=== PATIENT | male | born 1985 | race Hispanic/Latino ===

== ENCOUNTER 2017-08-05 15:06 | Emergency (ER) | payer MEDICARE, OTHER ==
[~2017-08-05] VITALS: Ht 190.5 cm; Wt 86.2 kg
[~2017-08-05 15:06] MED LIST: AMLODIPINE BESY10 MG PO; ASPIR 8181 MG PO; ATORVASTATIN CA20 MG PO; FOLIC ACID1 MG PO; GEMFIBROZIL600 MG; HYDRALAZINE HCL25 MG PO; LABETALOL HCL200 MG PO; LEVOTHYROXINE50 MCG PO; MYCOPHENOLATE250 MG PO; PANTOPRAZOLE SO40 MG PO; PREDNISONE20 MG PO; PROMETHAZINE HC25 M1 PO; SUCRALFATE1 GM PO
--- OUTSIDE RECORDS SUMMARY | 2017-08-05 15:13 | XMS REPORT ---
Author Author [facility] Address Unknown Phone Unavailable Care Team Providers Care Cook Helper Pastry Name Role Phone JENNIFER CRUZ Unavailable Unavailable EMMA RAMSEY Unavailable Unavailable ECHO LOLAKAREN Unavailable Unavailable TONY, BENSON Unavailable Unavailable HYSA, VIOLA Unavailable Unavailable EMEKA, CHRISTOPHER Unavailable Unavailable ALAM, MAHBOOB Unavailable Unavailable Problems This patient has no known problems. Allergies, Adverse Reactions, Alerts This patient has no known allergies or adverse reactions. Medications This patient has no known medications. Results Test Description Test Time Test Comments Text Results Atomic Results Result Comments CBC (HEMOGRAM ONLY) 2017-02-28 11:50:00 WHITE BLOOD CELL COUNT (BEAKER) (test whyv=837) 7.6 K/ L 3.5-10.5 RED BLOOD CELL COUNT (BEAKER) (test xfvi=261) 3.13 M/ L 4.63-6.08 HEMOGLOBIN (BEAKER) (test lnpd=466) 8.4 GM/DL 13.7-17.5 HEMATOCRIT (BEAKER) (test vzrg=835) 27.3 % 40.1-51.0 MEAN CORPUSCULAR VOLUME (BEAKER) (test ekyb=195) 87.2 fL 79.0-92.2 MEAN CORPUSCULAR HEMOGLOBIN (BEAKER) (test rcui=787) 26.8 pg 25.7-32.2 MEAN CORPUSCULAR HEMOGLOBIN CONC (BEAKER) (test xgpz=308) 30.8 GM/DL 32.3- 36.5 RED CELL DISTRIBUTION WIDTH (BEAKER) (test tvmi=204) 16.8 % 11.6-14.4 PLATELET COUNT (BEAKER) (test kdqr=549) 209 K/CU MM 150-450 MEAN PLATELET VOLUME (BEAKER) (test fdtp=048) 9.3 fL 9.4-12.4 NUCLEATED RED BLOOD CELLS (BEAKER) (test xcay=019) 0 /100 WBC 0-0 BASIC METABOLIC [id number] 08:10:00* Test Item Value Reference Range Comments SODIUM (BEAKER) (test ypsc=193) 140 meq/L 136-145 POTASSIUM (BEAKER) (test yuws=941) 3.8 meq/L 3.5-5.1 CHLORIDE (BEAKER) (test kpqq=433) 105 meq/L 98-107 CO2 (BEAKER) (test hkix=456) 27 meq/L 22-29 BLOOD UREA NITROGEN (BEAKER) (test njcz=136) 16 mg/dL 7-21 CREATININE (BEAKER) (test zskd=318) 4.07 mg/dL 0.57-1.25 GLUCOSE RANDOM (BEAKER) (test zwfd=218) 75 mg/dL 70-105 CALCIUM (BEAKER) (test alox=598) 8.2 mg/dL 8.4-10.2 EGFR (BEAKER) (test bvda=7855) 17 mL/min/1.73 sq m ESTIMATED GFR IS NOT ACCURATE CREATININE CLEARANCE IN PREDICTING GLOMERULAR FILTRATION RATE. ESTIMATED GFR IS NOT APPLICABLE FOR DIALYSIS PATIENTS. CBC W/PLT COUNT & AUTO [id number] 07:48:00* Test Item Value Reference Range Comments WHITE BLOOD CELL COUNT (BEAKER) (test smgv=806) 5.4 K/ L 3.5-10.5 RED BLOOD CELL COUNT (BEAKER) (test zref=850) 2.67 M/ L 4.63-6.08 HEMOGLOBIN (BEAKER) (test wlhz=100) 8.0 GM/DL 13.7-17.5 HEMATOCRIT (BEAKER) (test isue=153) 24.9 % 40.1-51.0 MEAN CORPUSCULAR VOLUME (BEAKER) (test lzxk=056) 93.3 fL 79.0-92.2 MEAN CORPUSCULAR HEMOGLOBIN (BEAKER) (test sfsw=890) 30.0 pg 25.7-32.2 MEAN CORPUSCULAR HEMOGLOBIN CONC (BEAKER) (test nsfx=180) 32.1 GM/DL 32.3- 36.5 RED CELL DISTRIBUTION WIDTH (BEAKER) (test htoc=903) 15.4 % 11.6-14.4 PLATELET COUNT (BEAKER) (test calp=147) 146 K/CU MM 150-450 MEAN PLATELET VOLUME (BEAKER) (test qcir=189) 9.1 fL 9.4-12.4 NUCLEATED RED BLOOD CELLS (BEAKER) (test gcqr=964) 0 /100 WBC 0-0 NEUTROPHILS RELATIVE PERCENT (BEAKER) (test cclb=300) 60 % LYMPHOCYTES RELATIVE PERCENT (BEAKER) (test oklx=560) 21 % MONOCYTES RELATIVE PERCENT (BEAKER) (test fdkv=160) 13 % EOSINOPHILS RELATIVE PERCENT (BEAKER) (test jlig=822) 5 % BASOPHILS RELATIVE PERCENT (BEAKER) (test abhm=304) 1 % NEUTROPHILS ABSOLUTE COUNT (BEAKER) (test yhmk=749) 3.23 K/ L 1.78-5.38 LYMPHOCYTES ABSOLUTE COUNT (BEAKER) (test vmbj=781) 1.10 K/ L 1.32-3.57 MONOCYTES ABSOLUTE COUNT (BEAKER) (test qbmi=865) 0.68 K/ L 0.30-0.82 EOSINOPHILS ABSOLUTE COUNT (BEAKER) (test zhjd=571) 0.26 K/ L 0.04-0.54 BASOPHILS ABSOLUTE COUNT (BEAKER) (test knzt=268) 0.04 K/ L 0.01-0.08 IMMATURE GRANULOCYTES-RELATIVE PERCENT (BEAKER) (test gype=8733) 1 % 0-1 BASIC METABOLIC [id number] 14:49:00* Test Item Value Reference Range Comments SODIUM (BEAKER) (test mlpu=747) 139 meq/L 136-145 POTASSIUM (BEAKER) (test kdbt=904) 4.1 meq/L 3.5-5.1 CHLORIDE (BEAKER) (test mauu=897) 104 meq/L 98-107 CO2 (BEAKER) (test wmps=845) 24 meq/L 22-29 BLOOD UREA NITROGEN (BEAKER) (test vxdi=567) 22 mg/dL 7-21 CREATININE (BEAKER) (test quxs=558) 4.86 mg/dL 0.57-1.25 GLUCOSE RANDOM (BEAKER) (test ljwv=386) 94 mg/dL 70-105 CALCIUM (BEAKER) (test ixhv=886) 8.0 mg/dL 8.4-10.2 EGFR (BEAKER) (test snln=6480) 14 mL/min/1.73 sq m ESTIMATED GFR IS NOT ACCURATE CREATININE CLEARANCE IN PREDICTING GLOMERULAR FILTRATION RATE. ESTIMATED GFR IS NOT APPLICABLE FOR DIALYSIS PATIENTS. Specimen slightly [id number] 14:40:00* Test Item Value Reference Range Comments PHOSPHORUS (BEAKER) (test dbki=350) 4.8 mg/dL 2.3-4.7 CBC W/PLT COUNT & AUTO [id number] 14:20:00* Test Item Value Reference Range Comments WHITE BLOOD CELL COUNT (BEAKER) (test fwhu=920) 5.8 K/ L 3.5-10.5 RED BLOOD CELL COUNT (BEAKER) (test bukm=245) 2.77 M/ L 4.63-6.08 HEMOGLOBIN (BEAKER) (test wlyf=810) 8.3 GM/DL 13.7-17.5 HEMATOCRIT (BEAKER) (test dize=911) 25.8 % 40.1-51.0 MEAN CORPUSCULAR VOLUME (BEAKER) (test ahuc=445) 93.1 fL 79.0-92.2 MEAN CORPUSCULAR HEMOGLOBIN (BEAKER) (test acme=466) 30.0 pg 25.7-32.2 MEAN CORPUSCULAR HEMOGLOBIN CONC (BEAKER) (test tpdd=784) 32.2 GM/DL 32.3- 36.5 RED CELL DISTRIBUTION WIDTH (BEAKER) (test hntb=703) 15.7 % 11.6-14.4 PLATELET COUNT (BEAKER) (test uqrh=655) 143 K/CU MM 150-450 MEAN PLATELET VOLUME (BEAKER) (test qmdc=826) 9.1 fL 9.4-12.4 NUCLEATED RED BLOOD CELLS (BEAKER) (test jzoo=176) 0 /100 WBC 0-0 NEUTROPHILS RELATIVE PERCENT (BEAKER) (test srma=186) 65 % LYMPHOCYTES RELATIVE PERCENT (BEAKER) (test pctf=424) 18 % MONOCYTES RELATIVE PERCENT (BEAKER) (test zbew=636) 11 % EOSINOPHILS RELATIVE PERCENT (BEAKER) (test hjct=676) 5 % BASOPHILS RELATIVE PERCENT (BEAKER) (test mwgs=853) 1 % NEUTROPHILS ABSOLUTE COUNT (BEAKER) (test pbcf=586) 3.71 K/ L 1.78-5.38 LYMPHOCYTES ABSOLUTE COUNT (BEAKER) (test cida=942) 1.03 K/ L 1.32-3.57 MONOCYTES ABSOLUTE COUNT (BEAKER) (test dnvy=261) 0.65 K/ L 0.30-0.82 EOSINOPHILS ABSOLUTE COUNT (BEAKER) (test wsdi=660) 0.27 K/ L 0.04-0.54 BASOPHILS ABSOLUTE COUNT (BEAKER) (test plbs=616) 0.05 K/ L 0.01-0.08 IMMATURE GRANULOCYTES-RELATIVE PERCENT (BEAKER) (test fziq=4999) 1 % 0-1 AFB CULTURE + [id number] 08:57:00* Test Item Value Reference Range Comments CULTURE (BEAKER) (test mhcv=1084) No acid-fast bacilli isolated in 42 days AFB SMEAR (BEAKER) (test nqus=413) No acid fast bacilli seen BASIC METABOLIC [id number] 11:00:00* Test Item Value Reference Range Comments SODIUM (BEAKER) (test rpag=007) 139 meq/L 136-145 POTASSIUM (BEAKER) (test qvew=039) 4.0 meq/L 3.5-5.1 CHLORIDE (BEAKER) (test eaqv=249) 105 meq/L 98-107 CO2 (BEAKER) (test kvlm=917) 28 meq/L 22-29 BLOOD UREA NITROGEN (BEAKER) (test kqrn=209) 15 mg/dL 7-21 CREATININE (BEAKER) (test dxec=195) 3.72 mg/dL 0.57-1.25 GLUCOSE RANDOM (BEAKER) (test skuj=188) 103 mg/dL 70-105 CALCIUM (BEAKER) (test flud=039) 8.1 mg/dL 8.4-10.2 EGFR (BEAKER) (test tlwp=8309) 19 mL/min/1.73 sq m ESTIMATED GFR IS NOT ACCURATE CREATININE CLEARANCE IN PREDICTING GLOMERULAR FILTRATION RATE. ESTIMATED GFR IS NOT APPLICABLE FOR DIALYSIS PATIENTS. Specimen slightly ictericCBC W/PLT COUNT & AUTO [id number] 10:44:00 * Test Item Value Reference Range Comments WHITE BLOOD CELL COUNT (BEAKER) (test pdoh=333) 4.9 K/ L 3.5-10.5 RED BLOOD CELL COUNT (BEAKER) (test vgct=740) 2.74 M/ L 4.63-6.08 HEMOGLOBIN (BEAKER) (test wlyz=390) 8.1 GM/DL 13.7-17.5 HEMATOCRIT (BEAKER) (test acbf=635) 25.9 % 40.1-51.0 MEAN CORPUSCULAR VOLUME (BEAKER) (test khib=191) 94.5 fL 79.0-92.2 MEAN CORPUSCULAR HEMOGLOBIN (BEAKER) (test tvsz=488) 29.6 pg 25.7-32.2 MEAN CORPUSCULAR HEMOGLOBIN CONC (BEAKER) (test qcho=780) 31.3 GM/DL 32.3- 36.5 RED CELL DISTRIBUTION WIDTH (BEAKER) (test cqcs=695) 15.9 % 11.6-14.4 PLATELET COUNT (BEAKER) (test ziiv=953) 137 K/CU MM 150-450 MEAN PLATELET VOLUME (BEAKER) (test inqn=802) 9.9 fL 9.4-12.4 NUCLEATED RED BLOOD CELLS (BEAKER) (test bqie=974) 0 /100 WBC 0-0 NEUTROPHILS RELATIVE PERCENT (BEAKER) (test stsk=431) 65 % LYMPHOCYTES RELATIVE PERCENT (BEAKER) (test huqe=631) 19 % MONOCYTES RELATIVE PERCENT (BEAKER) (test bxil=718) 10 % EOSINOPHILS RELATIVE PERCENT (BEAKER) (test vacu=050) 5 % BASOPHILS RELATIVE PERCENT (BEAKER) (test emkd=439) 1 % NEUTROPHILS ABSOLUTE COUNT (BEAKER) (test cpol=853) 3.14 K/ L 1.78-5.38 LYMPHOCYTES ABSOLUTE COUNT (BEAKER) (test muxj=927) 0.90 K/ L 1.32-3.57 MONOCYTES ABSOLUTE COUNT (BEAKER) (test mxdd=341) 0.50 K/ L 0.30-0.82 EOSINOPHILS ABSOLUTE COUNT (BEAKER) (test paqa=168) 0.25 K/ L 0.04-0.54 BASOPHILS ABSOLUTE COUNT (BEAKER) (test nrtj=317) 0.04 K/ L 0.01-0.08 IMMATURE GRANULOCYTES-RELATIVE PERCENT (BEAKER) (test rame=4841) 1 % 0-1 COMPREHENSIVE METABOLIC [id number] 05:57:00* Test Item Value Reference Range Comments TOTAL PROTEIN (BEAKER) (test xdby=981) 5.3 gm/dL 6.0-8.3 ALBUMIN (BEAKER) (test dvfp=4262) 2.3 g/dL 3.5-5.0 ALKALINE PHOSPHATASE (BEAKER) (test lxli=568) 187 U/L 40-150 BILIRUBIN TOTAL (BEAKER) (test vnjs=272) 2.6 mg/dL 0.2-1.2 SODIUM (BEAKER) (test xkjy=567) 139 meq/L 136-145 POTASSIUM (BEAKER) (test qhtb=136) 3.9 meq/L 3.5-5.1 CHLORIDE (BEAKER) (test xbxs=866) 104 meq/L 98-107 CO2 (BEAKER) (test snvg=409) 28 meq/L 22-29 BLOOD UREA NITROGEN (BEAKER) (test qsrx=453) 15 mg/dL 7-21 CREATININE (BEAKER) (test bihv=361) 3.50 mg/dL 0.57-1.25 GLUCOSE RANDOM (BEAKER) (test mjbb=877) 72 mg/dL 70-105 CALCIUM (BEAKER) (test luew=276) 8.1 mg/dL 8.4-10.2 AST (SGOT) (BEAKER) (test ihoy=524) 24 U/L 5-34 ALT (SGPT) (BEAKER) (test aovq=098) 16 U/L 6-55 EGFR (BEAKER) (test zivl=5858) 20 mL/min/1.73 sq m ESTIMATED GFR IS NOT ACCURATE CREATININE CLEARANCE IN PREDICTING GLOMERULAR FILTRATION RATE. ESTIMATED GFR IS NOT APPLICABLE FOR DIALYSIS PATIENTS. Specimen slightly [id number] 05:56:00* Test Item Value Reference Range Comments PHOSPHORUS (BEAKER) (test mieg=687) 3.5 mg/dL 2.3-4.7 [id number] 05:56:00* Test Item Value Reference Range Comments MAGNESIUM (BEAKER) (test uxpk=602) 1.6 mg/dL 1.6-2.6 CBC W/PLT COUNT & AUTO [id number] 14:48:00* Test Item Value Reference Range Comments WHITE BLOOD CELL COUNT (BEAKER) (test tmnr=318) 5.2 K/ L 3.5-10.5 RED BLOOD CELL COUNT (BEAKER) (test myzb=308) 2.96 M/ L 4.63-6.08 HEMOGLOBIN (BEAKER) (test xmnp=721) 8.8 GM/DL 13.7-17.5 HEMATOCRIT (BEAKER) (test hnft=044) 27.3 % 40.1-51.0 MEAN CORPUSCULAR VOLUME (BEAKER) (test nvwz=018) 92.2 fL 79.0-92.2 MEAN CORPUSCULAR HEMOGLOBIN (BEAKER) (test vgyg=899) 29.7 pg 25.7-32.2 MEAN CORPUSCULAR HEMOGLOBIN CONC (BEAKER) (test hotn=206) 32.2 GM/DL 32.3- 36.5 RED CELL DISTRIBUTION WIDTH (BEAKER) (test sidd=563) 15.8 % 11.6-14.4 PLATELET COUNT (BEAKER) (test oxou=884) 130 K/CU MM 150-450 MEAN PLATELET VOLUME (BEAKER) (test enee=168) 9.0 fL 9.4-12.4 NUCLEATED RED BLOOD CELLS (BEAKER) (test irzv=165) 0 /100 WBC 0-0 NEUTROPHILS RELATIVE PERCENT (BEAKER) (test dlxm=873) 65 % LYMPHOCYTES RELATIVE PERCENT (BEAKER) (test lulp=964) 19 % MONOCYTES RELATIVE PERCENT (BEAKER) (test hjnt=902) 9 % EOSINOPHILS RELATIVE PERCENT (BEAKER) (test wwzz=216) 5 % BASOPHILS RELATIVE PERCENT (BEAKER) (test yvhp=292) 1 % NEUTROPHILS ABSOLUTE COUNT (BEAKER) (test ocpa=065) 3.39 K/ L 1.78-5.38 LYMPHOCYTES ABSOLUTE COUNT (BEAKER) (test gazs=893) 0.98 K/ L 1.32-3.57 MONOCYTES ABSOLUTE COUNT (BEAKER) (test fdid=323) 0.46 K/ L 0.30-0.82 EOSINOPHILS ABSOLUTE COUNT (BEAKER) (test jofx=016) 0.28 K/ L 0.04-0.54 BASOPHILS ABSOLUTE COUNT (BEAKER) (test rucg=868) 0.03 K/ L 0.01-0.08 IMMATURE GRANULOCYTES-RELATIVE PERCENT (BEAKER) (test ekuq=0406) 1 % 0-1 COMPREHENSIVE METABOLIC [id number] 06:15:00* Test Item Value Reference Range Comments TOTAL PROTEIN (BEAKER) (test dwri=233) 5.4 gm/dL 6.0-8.3 ALBUMIN (BEAKER) (test fzuk=3665) 2.3 g/dL 3.5-5.0 ALKALINE PHOSPHATASE (BEAKER) (test svvc=907) 183 U/L 40-150 BILIRUBIN TOTAL (BEAKER) (test qzdh=745) 2.8 mg/dL 0.2-1.2 SODIUM (BEAKER) (test pgae=298) 134 meq/L 136-145 POTASSIUM (BEAKER) (test kvma=189) 4.5 meq/L 3.5-5.1 CHLORIDE (BEAKER) (test rgcb=764) 102 meq/L 98-107 CO2 (BEAKER) (test sqei=109) 24 meq/L 22-29 BLOOD UREA NITROGEN (BEAKER) (test hdac=675) 29 mg/dL 7-21 CREATININE (BEAKER) (test chjv=248) 5.43 mg/dL 0.57-1.25 GLUCOSE RANDOM (BEAKER) (test cwsj=999) 79 mg/dL 70-105 CALCIUM (BEAKER) (test wvqt=959) 7.9 mg/dL 8.4-10.2 AST (SGOT) (BEAKER) (test btax=094) 21 U/L 5-34 ALT (SGPT) (BEAKER) (test kgvz=769) 11 U/L 6-55 EGFR (BEAKER) (test jsvo=1442) 12 mL/min/1.73 sq m ESTIMATED GFR IS NOT ACCURATE CREATININE CLEARANCE IN PREDICTING GLOMERULAR FILTRATION RATE. ESTIMATED GFR IS NOT APPLICABLE FOR DIALYSIS PATIENTS. Specimen slightly [id number] 06:13:00* Test Item Value Reference Range Comments PHOSPHORUS (BEAKER) (test fhyq=997) 4.5 mg/dL 2.3-4.7 [id number] 06:13:00* Test Item Value Reference Range Comments MAGNESIUM (BEAKER) (test rcmf=401) 1.8 mg/dL 1.6-2.6 COMPREHENSIVE METABOLIC [id number] 17:23:00* Test Item Value Reference Range Comments TOTAL PROTEIN (BEAKER) (test algm=135) 5.3 gm/dL 6.0-8.3 ALBUMIN (BEAKER) (test fmfy=0510) 2.2 g/dL 3.5-5.0 ALKALINE PHOSPHATASE (BEAKER) (test daot=707) 214 U/L 40-150 BILIRUBIN TOTAL (BEAKER) (test jrjz=230) 2.4 mg/dL 0.2-1.2 SODIUM (BEAKER) (test ecpe=635) 137 meq/L 136-145 POTASSIUM (BEAKER) (test oagp=718) 4.4 meq/L 3.5-5.1 CHLORIDE (BEAKER) (test nchq=847) 103 meq/L 98-107 CO2 (BEAKER) (test lryy=648) 24 meq/L 22-29 BLOOD UREA NITROGEN (BEAKER) (test ybef=711) 24 mg/dL 7-21 CREATININE (BEAKER) (test yvnt=534) 4.69 mg/dL 0.57-1.25 GLUCOSE RANDOM (BEAKER) (test wpnt=944) 108 mg/dL 70-105 CALCIUM (BEAKER) (test rhkk=156) 7.9 mg/dL 8.4-10.2 AST (SGOT) (BEAKER) (test efbi=071) 24 U/L 5-34 ALT (SGPT) (BEAKER) (test njnb=526) 17 U/L 6-55 EGFR (BEAKER) (test fwqo=3052) 14 mL/min/1.73 sq m ESTIMATED GFR IS NOT ACCURATE CREATININE CLEARANCE IN PREDICTING GLOMERULAR FILTRATION RATE. ESTIMATED GFR IS NOT APPLICABLE FOR DIALYSIS PATIENTS. BASIC METABOLIC [id number] 05:36:00* Test Item Value Reference Range Comments SODIUM (BEAKER) (test gycr=835) 135 meq/L 136-145 POTASSIUM (BEAKER) (test wdwv=756) 4.3 meq/L 3.5-5.1 CHLORIDE (BEAKER) (test jemc=123) 101 meq/L 98-107 CO2 (BEAKER) (test bigv=280) 26 meq/L 22-29 BLOOD UREA NITROGEN (BEAKER) (test eele=953) 15 mg/dL 7-21 CREATININE (BEAKER) (test dmzl=652) 3.33 mg/dL 0.57-1.25 GLUCOSE RANDOM (BEAKER) (test dhvw=657) 80 mg/dL 70-105 CALCIUM (BEAKER) (test gqxe=404) 7.7 mg/dL 8.4-10.2 EGFR (BEAKER) (test worb=2048) 21 mL/min/1.73 sq m ESTIMATED GFR IS NOT ACCURATE CREATININE CLEARANCE IN PREDICTING GLOMERULAR FILTRATION RATE. ESTIMATED GFR IS NOT APPLICABLE FOR DIALYSIS PATIENTS. Specimen slightly [id number] 05:34:00* Test Item Value Reference Range Comments PHOSPHORUS (BEAKER) (test vwqy=864) 3.1 mg/dL 2.3-4.7 [id number] 05:34:00* Test Item Value Reference Range Comments MAGNESIUM (BEAKER) (test gbgv=338) 1.6 mg/dL 1.6-2.6 HEPATIC FUNCTION [id number] 05:34:00* Test Item Value Reference Range Comments TOTAL PROTEIN (BEAKER) (test kgsb=010) 5.3 gm/dL 6.0-8.3 ALBUMIN (BEAKER) (test litu=9202) 2.3 g/dL 3.5-5.0 BILIRUBIN TOTAL (BEAKER) (test cguy=120) 3.0 mg/dL 0.2-1.2 BILIRUBIN DIRECT (BEAKER) (test ytmt=992) 2.3 mg/dL 0.1-0.5 ALKALINE PHOSPHATASE (BEAKER) (test gfgo=992) 203 U/L 40-150 AST (SGOT) (BEAKER) (test bpvl=895) 24 U/L 5-34 ALT (SGPT) (BEAKER) (test irtg=727) 15 U/L 6-55 Specimen slightly [id number] 05:34:00* Test Item Value Reference Range Comments AMMONIA (BEAKER) (test uiei=394) 24 mol/L 18-72 Please draw w/ HDCBC W/PLT COUNT & AUTO [id number] 05:02:00* Test Item Value Reference Range Comments WHITE BLOOD CELL COUNT (BEAKER) (test gqzr=247) 7.2 K/ L 3.5-10.5 RED BLOOD CELL COUNT (BEAKER) (test ytqd=407) 2.73 M/ L 4.63-6.08 HEMOGLOBIN (BEAKER) (test pvwn=925) 8.2 GM/DL 13.7-17.5 HEMATOCRIT (BEAKER) (test rxmb=290) 25.9 % 40.1-51.0 MEAN CORPUSCULAR VOLUME (BEAKER) (test olnk=921) 94.9 fL 79.0-92.2 MEAN CORPUSCULAR HEMOGLOBIN (BEAKER) (test lukb=410) 30.0 pg 25.7-32.2 MEAN CORPUSCULAR HEMOGLOBIN CONC (BEAKER) (test smzq=421) 31.7 GM/DL 32.3- 36.5 RED CELL DISTRIBUTION WIDTH (BEAKER) (test gvzn=688) 16.6 % 11.6-14.4 PLATELET COUNT (BEAKER) (test ysie=359) 121 K/CU MM 150-450 MEAN PLATELET VOLUME (BEAKER) (test ytdj=575) 9.8 fL 9.4-12.4 NUCLEATED RED BLOOD CELLS (BEAKER) (test pnwg=433) 0 /100 WBC 0-0 NEUTROPHILS RELATIVE PERCENT (BEAKER) (test ewsq=190) 63 % LYMPHOCYTES RELATIVE PERCENT (BEAKER) (test jhjj=657) 19 % MONOCYTES RELATIVE PERCENT (BEAKER) (test witv=108) 11 % EOSINOPHILS RELATIVE PERCENT (BEAKER) (test imnt=576) 5 % BASOPHILS RELATIVE PERCENT (BEAKER) (test lazf=006) 1 % NEUTROPHILS ABSOLUTE COUNT (BEAKER) (test ucvg=283) 4.53 K/ L 1.78-5.38 LYMPHOCYTES ABSOLUTE COUNT (BEAKER) (test yqlm=316) 1.37 K/ L 1.32-3.57 MONOCYTES ABSOLUTE COUNT (BEAKER) (test vdvx=851) 0.76 K/ L 0.30-0.82 EOSINOPHILS ABSOLUTE COUNT (BEAKER) (test ssnm=035) 0.39 K/ L 0.04-0.54 BASOPHILS ABSOLUTE COUNT (BEAKER) (test yoba=365) 0.06 K/ L 0.01-0.08 IMMATURE GRANULOCYTES-RELATIVE PERCENT (BEAKER) (test mgvw=4058) 1 % 0-1 VANCOMYCIN LEVEL, [id number] 04:59:00* Test Item Value Reference Range Comments VANCOMYCIN TROUGH (BEAKER) (test cjyw=602) 27.0 ug/mL 10.0-20.0 BASIC METABOLIC [id number] 06:49:00* Test Item Value Reference Range Comments SODIUM (BEAKER) (test rtuk=953) 137 meq/L 136-145 POTASSIUM (BEAKER) (test ywer=131) 4.2 meq/L 3.5-5.1 CHLORIDE (BEAKER) (test vkib=062) 102 meq/L 98-107 CO2 (BEAKER) (test oxjv=536) 28 meq/L 22-29 BLOOD UREA NITROGEN (BEAKER) (test fygq=778) 12 mg/dL 7-21 CREATININE (BEAKER) (test mele=138) 3.12 mg/dL 0.57-1.25 GLUCOSE RANDOM (BEAKER) (test zqsd=365) 75 mg/dL 70-105 CALCIUM (BEAKER) (test zlah=038) 8.0 mg/dL 8.4-10.2 EGFR (BEAKER) (test djri=6665) 23 mL/min/1.73 sq m ESTIMATED GFR IS NOT ACCURATE CREATININE CLEARANCE IN PREDICTING GLOMERULAR FILTRATION RATE. ESTIMATED GFR IS NOT APPLICABLE FOR DIALYSIS PATIENTS. Specimen slightly [id number] 06:46:00* Test Item Value Reference Range Comments PHOSPHORUS (BEAKER) (test ypki=228) 3.1 mg/dL 2.3-4.7 [id number] 06:46:00* Test Item Value Reference Range Comments MAGNESIUM (BEAKER) (test rlkn=829) 1.6 mg/dL 1.6-2.6 HEPATIC FUNCTION [id number] 06:46:00* Test Item Value Reference Range Comments TOTAL PROTEIN (BEAKER) (test pnas=114) 5.4 gm/dL 6.0-8.3 ALBUMIN (BEAKER) (test xlbg=5753) 2.3 g/dL 3.5-5.0 BILIRUBIN TOTAL (BEAKER) (test fvmi=951) 3.2 mg/dL 0.2-1.2 BILIRUBIN DIRECT (BEAKER) (test plke=156) 2.4 mg/dL 0.1-0.5 ALKALINE PHOSPHATASE (BEAKER) (test gkup=901) 195 U/L 40-150 AST (SGOT) (BEAKER) (test swji=947) 30 U/L 5-34 ALT (SGPT) (BEAKER) (test snsc=188) 21 U/L 6-55 Specimen slightly ictericCBC W/PLT COUNT & AUTO [id number] 06:20:00 * Test Item Value Reference Range Comments WHITE BLOOD CELL COUNT (BEAKER) (test aggn=110) 7.5 K/ L 3.5-10.5 RED BLOOD CELL COUNT (BEAKER) (test laca=769) 2.73 M/ L 4.63-6.08 HEMOGLOBIN (BEAKER) (test eecz=681) 8.4 GM/DL 13.7-17.5 HEMATOCRIT (BEAKER) (test uahj=927) 26.3 % 40.1-51.0 MEAN CORPUSCULAR VOLUME (BEAKER) (test ysxj=050) 96.3 fL 79.0-92.2 MEAN CORPUSCULAR HEMOGLOBIN (BEAKER) (test yayf=062) 30.8 pg 25.7-32.2 MEAN CORPUSCULAR HEMOGLOBIN CONC (BEAKER) (test esnt=840) 31.9 GM/DL 32.3- 36.5 RED CELL DISTRIBUTION WIDTH (BEAKER) (test wtmk=585) 17.2 % 11.6-14.4 PLATELET COUNT (BEAKER) (test lfqj=773) 106 K/CU MM 150-450 MEAN PLATELET VOLUME (BEAKER) (test cfto=504) 9.4 fL 9.4-12.4 NUCLEATED RED BLOOD CELLS (BEAKER) (test wkzt=250) 0 /100 WBC 0-0 NEUTROPHILS RELATIVE PERCENT (BEAKER) (test gubz=844) 64 % LYMPHOCYTES RELATIVE PERCENT (BEAKER) (test sfgu=989) 19 % MONOCYTES RELATIVE PERCENT (BEAKER) (test beyg=647) 11 % EOSINOPHILS RELATIVE PERCENT (BEAKER) (test pspq=787) 4 % BASOPHILS RELATIVE PERCENT (BEAKER) (test vtzp=473) 1 % NEUTROPHILS ABSOLUTE COUNT (BEAKER) (test lnvr=613) 4.78 K/ L 1.78-5.38 LYMPHOCYTES ABSOLUTE COUNT (BEAKER) (test pshl=901) 1.43 K/ L 1.32-3.57 MONOCYTES ABSOLUTE COUNT (BEAKER) (test eewg=676) 0.84 K/ L 0.30-0.82 EOSINOPHILS ABSOLUTE COUNT (BEAKER) (test aenk=207) 0.33 K/ L 0.04-0.54 BASOPHILS ABSOLUTE COUNT (BEAKER) (test brvq=005) 0.05 K/ L 0.01-0.08 IMMATURE GRANULOCYTES-RELATIVE PERCENT (BEAKER) (test bmyy=5774) 1 % 0-1 BASIC METABOLIC [id number] 15:10:00* Test Item Value Reference Range Comments SODIUM (BEAKER) (test oeld=717) 137 meq/L 136-145 POTASSIUM (BEAKER) (test zspy=807) 4.0 meq/L 3.5-5.1 CHLORIDE (BEAKER) (test kuxf=154) 101 meq/L 98-107 CO2 (BEAKER) (test qjrw=676) 27 meq/L 22-29 BLOOD UREA NITROGEN (BEAKER) (test rtkm=213) 12 mg/dL 7-21 CREATININE (BEAKER) (test hjqx=400) 3.11 mg/dL 0.57-1.25 GLUCOSE RANDOM (BEAKER) (test sgcc=668) 92 mg/dL 70-105 CALCIUM (BEAKER) (test qkxr=248) 7.9 mg/dL 8.4-10.2 EGFR (BEAKER) (test vbtl=5922) 23 mL/min/1.73 sq m ESTIMATED GFR IS NOT ACCURATE CREATININE CLEARANCE IN PREDICTING GLOMERULAR FILTRATION RATE. ESTIMATED GFR IS NOT APPLICABLE FOR DIALYSIS PATIENTS. Specimen slightly [id number] 15:06:00* Test Item Value Reference Range Comments PHOSPHORUS (BEAKER) (test lpwi=746) 2.2 mg/dL 2.3-4.7 [id number] 15:06:00* Test Item Value Reference Range Comments MAGNESIUM (BEAKER) (test ttfo=442) 1.6 mg/dL 1.6-2.6 HEPATIC FUNCTION [id number] 15:06:00* Test Item Value Reference Range Comments TOTAL PROTEIN (BEAKER) (test ezem=766) 5.7 gm/dL 6.0-8.3 ALBUMIN (BEAKER) (test akgr=0792) 2.5 g/dL 3.5-5.0 BILIRUBIN TOTAL (BEAKER) (test wqtv=492) 3.5 mg/dL 0.2-1.2 BILIRUBIN DIRECT (BEAKER) (test iizh=985) 2.7 mg/dL 0.1-0.5 ALKALINE PHOSPHATASE (BEAKER) (test vtsi=804) 211 U/L 40-150 AST (SGOT) (BEAKER) (test dadc=014) 30 U/L 5-34 ALT (SGPT) (BEAKER) (test hopo=722) 21 U/L 6-55 Specimen slightly ictericCBC W/PLT COUNT & AUTO [id number] 13:24:00 * Test Item Value Reference Range Comments WHITE BLOOD CELL COUNT (BEAKER) (test oivr=053) 8.7 K/ L 3.5-10.5 RED BLOOD CELL COUNT (BEAKER) (test xuaw=591) 2.86 M/ L 4.63-6.08 HEMOGLOBIN (BEAKER) (test prxf=029) 8.7 GM/DL 13.7-17.5 HEMATOCRIT (BEAKER) (test dcha=559) 27.5 % 40.1-51.0 MEAN CORPUSCULAR VOLUME (BEAKER) (test fnzt=240) 96.2 fL 79.0-92.2 MEAN CORPUSCULAR HEMOGLOBIN (BEAKER) (test fbwi=710) 30.4 pg 25.7-32.2 MEAN CORPUSCULAR HEMOGLOBIN CONC (BEAKER) (test buyb=550) 31.6 GM/DL 32.3- 36.5 RED CELL DISTRIBUTION WIDTH (BEAKER) (test bigp=113) 17.6 % 11.6-14.4 PLATELET COUNT (BEAKER) (test kqnm=485) 132 K/CU MM 150-450 MEAN PLATELET VOLUME (BEAKER) (test qqcm=809) 9.9 fL 9.4-12.4 NUCLEATED RED BLOOD CELLS (BEAKER) (test qtvn=177) 0 /100 WBC 0-0 NEUTROPHILS RELATIVE PERCENT (BEAKER) (test rhpb=498) 69 % LYMPHOCYTES RELATIVE PERCENT (BEAKER) (test odnf=053) 17 % MONOCYTES RELATIVE PERCENT (BEAKER) (test spoa=459) 10 % EOSINOPHILS RELATIVE PERCENT (BEAKER) (test zedm=171) 3 % BASOPHILS RELATIVE PERCENT (BEAKER) (test ueub=835) 1 % NEUTROPHILS ABSOLUTE COUNT (BEAKER) (test mqks=190) 6.02 K/ L 1.78-5.38 LYMPHOCYTES ABSOLUTE COUNT (BEAKER) (test ttty=105) 1.44 K/ L 1.32-3.57 MONOCYTES ABSOLUTE COUNT (BEAKER) (test rzlx=557) 0.90 K/ L 0.30-0.82 EOSINOPHILS ABSOLUTE COUNT (BEAKER) (test kkvn=697) 0.27 K/ L 0.04-0.54 BASOPHILS ABSOLUTE COUNT (BEAKER) (test ifzk=146) 0.05 K/ L 0.01-0.08 IMMATURE GRANULOCYTES-RELATIVE PERCENT (BEAKER) (test xltk=3668) 1 % 0-1 FUNGUS CULTURE + [id number] 14:05:00* Test Item Value Reference Range Comments CULTURE (BEAKER) (test amre=0962) No fungus isolated in 28 days FUNGUS SMEAR (BEAKER) (test oisq=7293) No fungi seen VANCOMYCIN LEVEL, [id number] 18:54:00* Test Item Value Reference Range Comments VANCOMYCIN TROUGH (BEAKER) (test fneh=535) 13.7 ug/mL 10.0-20.0 [id number] 06:32:00* Test Item Value Reference Range Comments PHOSPHORUS (BEAKER) (test iprh=912) 3.9 mg/dL 2.3-4.7 BASIC METABOLIC [id number] 06:32:00* Test Item Value Reference Range Comments SODIUM (BEAKER) (test oqhq=564) 134 meq/L 136-145 POTASSIUM (BEAKER) (test ncvi=554) 4.4 meq/L 3.5-5.1 CHLORIDE (BEAKER) (test nlka=584) 99 meq/L 98-107 CO2 (BEAKER) (test ycwo=769) 24 meq/L 22-29 BLOOD UREA NITROGEN (BEAKER) (test zwwp=778) 19 mg/dL 7-21 CREATININE (BEAKER) (test lpsm=449) 4.25 mg/dL 0.57-1.25 GLUCOSE RANDOM (BEAKER) (test qnrg=110) 69 mg/dL 70-105 CALCIUM (BEAKER) (test ofdg=199) 7.6 mg/dL 8.4-10.2 EGFR (BEAKER) (test qzds=7355) 16 mL/min/1.73 sq m ESTIMATED GFR IS NOT ACCURATE CREATININE CLEARANCE IN PREDICTING GLOMERULAR FILTRATION RATE. ESTIMATED GFR IS NOT APPLICABLE FOR DIALYSIS PATIENTS. Specimen slightly [id number] 06:28:00* Test Item Value Reference Range Comments MAGNESIUM (BEAKER) (test hyyd=085) 1.5 mg/dL 1.6-2.6 HEPATIC FUNCTION [id number] 06:28:00* Test Item Value Reference Range Comments TOTAL PROTEIN (BEAKER) (test ngdf=714) 5.3 gm/dL 6.0-8.3 ALBUMIN (BEAKER) (test alzc=8845) 2.3 g/dL 3.5-5.0 BILIRUBIN TOTAL (BEAKER) (test cynt=626) 3.8 mg/dL 0.2-1.2 BILIRUBIN DIRECT (BEAKER) (test gszu=789) 3.0 mg/dL 0.1-0.5 ALKALINE PHOSPHATASE (BEAKER) (test vzda=838) 210 U/L 40-150 AST (SGOT) (BEAKER) (test vtew=293) 36 U/L 5-34 ALT (SGPT) (BEAKER) (test ctth=556) 30 U/L 6-55 Specimen slightly ictericCBC W/PLT COUNT & AUTO [id number] 05:55:00 * Test Item Value Reference Range Comments WHITE BLOOD CELL COUNT (BEAKER) (test exeh=723) 8.9 K/ L 3.5-10.5 RED BLOOD CELL COUNT (BEAKER) (test kinp=805) 2.77 M/ L 4.63-6.08 HEMOGLOBIN (BEAKER) (test mjkk=537) 8.2 GM/DL 13.7-17.5 HEMATOCRIT (BEAKER) (test twqb=057) 26.3 % 40.1-51.0 MEAN CORPUSCULAR VOLUME (BEAKER) (test naef=719) 94.9 fL 79.0-92.2 MEAN CORPUSCULAR HEMOGLOBIN (BEAKER) (test sdkx=906) 29.6 pg 25.7-32.2 MEAN CORPUSCULAR HEMOGLOBIN CONC (BEAKER) (test kxno=869) 31.2 GM/DL 32.3- 36.5 RED CELL DISTRIBUTION WIDTH (BEAKER) (test lovq=268) 18.0 % 11.6-14.4 PLATELET COUNT (BEAKER) (test fitt=170) 135 K/CU MM 150-450 MEAN PLATELET VOLUME (BEAKER) (test kqrz=687) 9.7 fL 9.4-12.4 NUCLEATED RED BLOOD CELLS (BEAKER) (test rpdn=773) 0 /100 WBC 0-0 NEUTROPHILS RELATIVE PERCENT (BEAKER) (test zpzz=771) 66 % LYMPHOCYTES RELATIVE PERCENT (BEAKER) (test ihly=633) 18 % MONOCYTES RELATIVE PERCENT (BEAKER) (test nvxv=054) 11 % EOSINOPHILS RELATIVE PERCENT (BEAKER) (test ncmb=285) 4 % BASOPHILS RELATIVE PERCENT (BEAKER) (test qnbh=571) 1 % NEUTROPHILS ABSOLUTE COUNT (BEAKER) (test krop=192) 5.87 K/ L 1.78-5.38 LYMPHOCYTES ABSOLUTE COUNT (BEAKER) (test ktks=657) 1.59 K/ L 1.32-3.57 MONOCYTES ABSOLUTE COUNT (BEAKER) (test zrvj=713) 1.01 K/ L 0.30-0.82 EOSINOPHILS ABSOLUTE COUNT (BEAKER) (test kbyl=127) 0.34 K/ L 0.04-0.54 BASOPHILS ABSOLUTE COUNT (BEAKER) (test bhzs=193) 0.07 K/ L 0.01-0.08 IMMATURE GRANULOCYTES-RELATIVE PERCENT (BEAKER) (test snkr=0654) 0 % 0-1 [id number] 05:07:00* Test Item Value Reference Range Comments AMMONIA (BEAKER) (test asku=212) 15 mol/L 18-72 Please draw / [facility] METABOLIC [id number] 04:33:00* Test Item Value Reference Range Comments SODIUM (BEAKER) (test kkxr=463) 133 meq/L 136-145 POTASSIUM (BEAKER) (test fzwk=536) 4.3 meq/L 3.5-5.1 CHLORIDE (BEAKER) (test dfkw=421) 100 meq/L 98-107 CO2 (BEAKER) (test iyiq=928) 24 meq/L 22-29 BLOOD UREA NITROGEN (BEAKER) (test pjkt=772) 23 mg/dL 7-21 CREATININE (BEAKER) (test mjpi=170) 4.57 mg/dL 0.57-1.25 GLUCOSE RANDOM (BEAKER) (test rfam=422) 80 mg/dL 70-105 CALCIUM (BEAKER) (test djvt=413) 7.6 mg/dL 8.4-10.2 EGFR (BEAKER) (test ksmr=6481) 15 mL/min/1.73 sq m ESTIMATED GFR IS NOT ACCURATE CREATININE CLEARANCE IN PREDICTING GLOMERULAR FILTRATION RATE. ESTIMATED GFR IS NOT APPLICABLE FOR DIALYSIS PATIENTS. Specimen slightly [id number] 04:32:00* Test Item Value Reference Range Comments PHOSPHORUS (BEAKER) (test kchb=382) 4.5 mg/dL 2.3-4.7 [id number] 04:32:00* Test Item Value Reference Range Comments MAGNESIUM (BEAKER) (test jdao=954) 1.5 mg/dL 1.6-2.6 HEPATIC FUNCTION [id number] 04:32:00* Test Item Value Reference Range Comments TOTAL PROTEIN (BEAKER) (test viyk=102) 5.4 gm/dL 6.0-8.3 ALBUMIN (BEAKER) (test tqbv=7404) 2.3 g/dL 3.5-5.0 BILIRUBIN TOTAL (BEAKER) (test zkwb=374) 4.3 mg/dL 0.2-1.2 BILIRUBIN DIRECT (BEAKER) (test rdmq=735) 3.3 mg/dL 0.1-0.5 ALKALINE PHOSPHATASE (BEAKER) (test eekf=638) 235 U/L 40-150 AST (SGOT) (BEAKER) (test oxzk=557) 45 U/L 5-34 ALT (SGPT) (BEAKER) (test prao=714) 34 U/L 6-55 Specimen slightly ictericCBC W/PLT COUNT & AUTO [id number] 04:15:00 * Test Item Value Reference Range Comments WHITE BLOOD CELL COUNT (BEAKER) (test pllz=371) 10.3 K/ L 3.5-10.5 RED BLOOD CELL COUNT (BEAKER) (test nufl=796) 2.74 M/ L 4.63-6.08 HEMOGLOBIN (BEAKER) (test avwf=380) 8.1 GM/DL 13.7-17.5 HEMATOCRIT (BEAKER) (test blid=833) 26.3 % 40.1-51.0 MEAN CORPUSCULAR VOLUME (BEAKER) (test ljgv=157) 96.0 fL 79.0-92.2 MEAN CORPUSCULAR HEMOGLOBIN (BEAKER) (test vxwh=829) 29.6 pg 25.7-32.2 MEAN CORPUSCULAR HEMOGLOBIN CONC (BEAKER) (test mbtx=365) 30.8 GM/DL 32.3- 36.5 RED CELL DISTRIBUTION WIDTH (BEAKER) (test morm=381) 18.3 % 11.6-14.4 PLATELET COUNT (BEAKER) (test zklb=155) 125 K/CU MM 150-450 MEAN PLATELET VOLUME (BEAKER) (test ycda=600) 9.3 fL 9.4-12.4 NUCLEATED RED BLOOD CELLS (BEAKER) (test wckp=611) 0 /100 WBC 0-0 NEUTROPHILS RELATIVE PERCENT (BEAKER) (test yxxm=513) 66 % LYMPHOCYTES RELATIVE PERCENT (BEAKER) (test hvxe=203) 17 % MONOCYTES RELATIVE PERCENT (BEAKER) (test qqim=266) 13 % EOSINOPHILS RELATIVE PERCENT (BEAKER) (test bsvm=223) 3 % BASOPHILS RELATIVE PERCENT (BEAKER) (test rztq=660) 1 % NEUTROPHILS ABSOLUTE COUNT (BEAKER) (test cdcw=456) 6.87 K/ L 1.78-5.38 LYMPHOCYTES ABSOLUTE COUNT (BEAKER) (test gkpt=531) 1.75 K/ L 1.32-3.57 MONOCYTES ABSOLUTE COUNT (BEAKER) (test tbuk=643) 1.29 K/ L 0.30-0.82 EOSINOPHILS ABSOLUTE COUNT (BEAKER) (test yyzk=962) 0.31 K/ L 0.04-0.54 BASOPHILS ABSOLUTE COUNT (BEAKER) (test xvvk=717) 0.06 K/ L 0.01-0.08 IMMATURE GRANULOCYTES-RELATIVE PERCENT (BEAKER) (test byip=3704) 1 % 0-1 BASIC METABOLIC [id number] 07:34:00* Test Item Value Reference Range Comments SODIUM (BEAKER) (test xglz=409) 135 meq/L 136-145 POTASSIUM (BEAKER) (test kvjd=904) 4.0 meq/L 3.5-5.1 CHLORIDE (BEAKER) (test snbe=655) 99 meq/L 98-107 CO2 (BEAKER) (test lnrw=751) 27 meq/L 22-29 BLOOD UREA NITROGEN (BEAKER) (test iaag=850) 15 mg/dL 7-21 CREATININE (BEAKER) (test pmag=433) 3.51 mg/dL 0.57-1.25 GLUCOSE RANDOM (BEAKER) (test fbfs=748) 69 mg/dL 70-105 CALCIUM (BEAKER) (test iwwk=069) 7.6 mg/dL 8.4-10.2 EGFR (BEAKER) (test uhqs=4937) 20 mL/min/1.73 sq m ESTIMATED GFR IS NOT ACCURATE CREATININE CLEARANCE IN PREDICTING GLOMERULAR FILTRATION RATE. ESTIMATED GFR IS NOT APPLICABLE FOR DIALYSIS PATIENTS. Specimen slightly [id number] 07:15:00* Test Item Value Reference Range Comments PHOSPHORUS (BEAKER) (test olag=283) 3.8 mg/dL 2.3-4.7 [id number] 07:15:00* Test Item Value Reference Range Comments MAGNESIUM (BEAKER) (test glzc=280) 1.5 mg/dL 1.6-2.6 HEPATIC FUNCTION [id number] 07:15:00* Test Item Value Reference Range Comments TOTAL PROTEIN (BEAKER) (test xnqw=807) 5.1 gm/dL 6.0-8.3 ALBUMIN (BEAKER) (test daqm=0266) 2.1 g/dL 3.5-5.0 BILIRUBIN TOTAL (BEAKER) (test vdit=799) 4.2 mg/dL 0.2-1.2 BILIRUBIN DIRECT (BEAKER) (test xwsi=341) 3.3 mg/dL 0.1-0.5 ALKALINE PHOSPHATASE (BEAKER) (test ygqo=061) 213 U/L 40-150 AST (SGOT) (BEAKER) (test kbjr=362) 59 U/L 5-34 ALT (SGPT) (BEAKER) (test pcxi=832) 38 U/L 6-55 Specimen slightly ictericCBC W/PLT COUNT & AUTO [id number] 06:31:00 * Test Item Value Reference Range Comments WHITE BLOOD CELL COUNT (BEAKER) (test tmqh=582) 8.7 K/ L 3.5-10.5 RED BLOOD CELL COUNT (BEAKER) (test jqkw=639) 2.90 M/ L 4.63-6.08 HEMOGLOBIN (BEAKER) (test iida=099) 8.5 GM/DL 13.7-17.5 HEMATOCRIT (BEAKER) (test fuys=029) 27.6 % 40.1-51.0 MEAN CORPUSCULAR VOLUME (BEAKER) (test oqcc=579) 95.2 fL 79.0-92.2 MEAN CORPUSCULAR HEMOGLOBIN (BEAKER) (test ncej=556) 29.3 pg 25.7-32.2 MEAN CORPUSCULAR HEMOGLOBIN CONC (BEAKER) (test sjwj=843) 30.8 GM/DL 32.3- 36.5 RED CELL DISTRIBUTION WIDTH (BEAKER) (test gefy=712) 18.6 % 11.6-14.4 PLATELET COUNT (BEAKER) (test irps=504) 122 K/CU MM 150-450 MEAN PLATELET VOLUME (BEAKER) (test xvyr=304) 10.6 fL 9.4-12.4 NUCLEATED RED BLOOD CELLS (BEAKER) (test rhtg=714) 0 /100 WBC 0-0 NEUTROPHILS RELATIVE PERCENT (BEAKER) (test pjkb=659) 66 % LYMPHOCYTES RELATIVE PERCENT (BEAKER) (test sifn=227) 17 % MONOCYTES RELATIVE PERCENT (BEAKER) (test xyfm=790) 13 % EOSINOPHILS RELATIVE PERCENT (BEAKER) (test acae=168) 3 % BASOPHILS RELATIVE PERCENT (BEAKER) (test txkz=100) 1 % NEUTROPHILS ABSOLUTE COUNT (BEAKER) (test ahgu=381) 5.67 K/ L 1.78-5.38 LYMPHOCYTES ABSOLUTE COUNT (BEAKER) (test bplm=137) 1.47 K/ L 1.32-3.57 MONOCYTES ABSOLUTE COUNT (BEAKER) (test tktm=479) 1.11 K/ L 0.30-0.82 EOSINOPHILS ABSOLUTE COUNT (BEAKER) (test mhbi=200) 0.27 K/ L 0.04-0.54 BASOPHILS ABSOLUTE COUNT (BEAKER) (test evoj=479) 0.06 K/ L 0.01-0.08 IMMATURE GRANULOCYTES-RELATIVE PERCENT (BEAKER) (test embm=6791) 1 % 0-1 VANCOMYCIN LEVEL, [id number] 18:43:00* Test Item Value Reference Range Comments VANCOMYCIN TROUGH (BEAKER) (test fpft=730) 11.9 ug/mL 10.0-20.0 Please get it before you give the next dose of VancomycinBASIC METABOLIC [id number] 07:25:00* Test Item Value Reference Range Comments SODIUM (BEAKER) (test noxn=596) 131 meq/L 136-145 POTASSIUM (BEAKER) (test msag=977) 4.3 meq/L 3.5-5.1 CHLORIDE (BEAKER) (test aamh=050) 98 meq/L 98-107 CO2 (BEAKER) (test wphj=527) 25 meq/L 22-29 BLOOD UREA NITROGEN (BEAKER) (test refo=288) 27 mg/dL 7-21 CREATININE (BEAKER) (test hizm=105) 5.14 mg/dL 0.57-1.25 GLUCOSE RANDOM (BEAKER) (test dkgb=254) 73 mg/dL 70-105 CALCIUM (BEAKER) (test rjrc=539) 7.4 mg/dL 8.4-10.2 EGFR (BEAKER) (test qmfs=7711) 13 mL/min/1.73 sq m ESTIMATED GFR IS NOT ACCURATE CREATININE CLEARANCE IN PREDICTING GLOMERULAR FILTRATION RATE. ESTIMATED GFR IS NOT APPLICABLE FOR DIALYSIS PATIENTS. Specimen slightly [id number] 07:22:00* Test Item Value Reference Range Comments PHOSPHORUS (BEAKER) (test hart=195) 4.8 mg/dL 2.3-4.7 [id number] 07:22:00* Test Item Value Reference Range Comments MAGNESIUM (BEAKER) (test yihu=954) 1.6 mg/dL 1.6-2.6 HEPATIC FUNCTION [id number] 07:22:00* Test Item Value Reference Range Comments TOTAL PROTEIN (BEAKER) (test aknu=385) 4.9 gm/dL 6.0-8.3 ALBUMIN (BEAKER) (test vyui=6380) 2.0 g/dL 3.5-5.0 BILIRUBIN TOTAL (BEAKER) (test hues=407) 4.3 mg/dL 0.2-1.2 BILIRUBIN DIRECT (BEAKER) (test hiww=339) 3.4 mg/dL 0.1-0.5 ALKALINE PHOSPHATASE (BEAKER) (test flcx=996) 214 U/L 40-150 AST (SGOT) (BEAKER) (test wnty=368) 51 U/L 5-34 ALT (SGPT) (BEAKER) (test pjmg=024) 35 U/L 6-55 Specimen slightly ictericCBC W/PLT COUNT & AUTO [id number] 06:55:00 * Test Item Value Reference Range Comments WHITE BLOOD CELL COUNT (BEAKER) (test qjhz=595) 8.7 K/ L 3.5-10.5 RED BLOOD CELL COUNT (BEAKER) (test tmji=043) 2.82 M/ L 4.63-6.08 HEMOGLOBIN (BEAKER) (test omrz=272) 8.3 GM/DL 13.7-17.5 HEMATOCRIT (BEAKER) (test pcek=992) 26.7 % 40.1-51.0 MEAN CORPUSCULAR VOLUME (BEAKER) (test mgik=234) 94.7 fL 79.0-92.2 MEAN CORPUSCULAR HEMOGLOBIN (BEAKER) (test iiho=113) 29.4 pg 25.7-32.2 MEAN CORPUSCULAR HEMOGLOBIN CONC (BEAKER) (test yzmp=295) 31.1 GM/DL 32.3- 36.5 RED CELL DISTRIBUTION WIDTH (BEAKER) (test pije=887) 18.8 % 11.6-14.4 PLATELET COUNT (BEAKER) (test bchl=544) 116 K/CU MM 150-450 MEAN PLATELET VOLUME (BEAKER) (test xjfk=946) 9.4 fL 9.4-12.4 NUCLEATED RED BLOOD CELLS (BEAKER) (test ojoc=338) 0 /100 WBC 0-0 NEUTROPHILS RELATIVE PERCENT (BEAKER) (test afyz=111) 62 % LYMPHOCYTES RELATIVE PERCENT (BEAKER) (test wttg=597) 19 % MONOCYTES RELATIVE PERCENT (BEAKER) (test rith=620) 14 % EOSINOPHILS RELATIVE PERCENT (BEAKER) (test ibaq=110) 4 % BASOPHILS RELATIVE PERCENT (BEAKER) (test rvvv=249) 1 % NEUTROPHILS ABSOLUTE COUNT (BEAKER) (test ltpz=034) 5.39 K/ L 1.78-5.38 LYMPHOCYTES ABSOLUTE COUNT (BEAKER) (test cyxv=762) 1.61 K/ L 1.32-3.57 MONOCYTES ABSOLUTE COUNT (BEAKER) (test tmsx=362) 1.23 K/ L 0.30-0.82 EOSINOPHILS ABSOLUTE COUNT (BEAKER) (test pkhc=563) 0.32 K/ L 0.04-0.54 BASOPHILS ABSOLUTE COUNT (BEAKER) (test bvkm=455) 0.05 K/ L 0.01-0.08 IMMATURE GRANULOCYTES-RELATIVE PERCENT (BEAKER) (test gcbd=3703) 1 % 0-1 BASIC METABOLIC [id number] 07:40:00* Test Item Value Reference Range Comments SODIUM (BEAKER) (test vpmp=478) 133 meq/L 136-145 POTASSIUM (BEAKER) (test wxvl=035) 4.2 meq/L 3.5-5.1 CHLORIDE (BEAKER) (test iyqf=555) 99 meq/L 98-107 CO2 (BEAKER) (test zsaw=192) 25 meq/L 22-29 BLOOD UREA NITROGEN (BEAKER) (test ynmo=999) 18 mg/dL 7-21 CREATININE (BEAKER) (test ihsd=607) 4.06 mg/dL 0.57-1.25 GLUCOSE RANDOM (BEAKER) (test ohny=567) 65 mg/dL 70-105 CALCIUM (BEAKER) (test jxdu=345) 7.5 mg/dL 8.4-10.2 EGFR (BEAKER) (test imlb=3166) 17 mL/min/1.73 sq m ESTIMATED GFR IS NOT ACCURATE CREATININE CLEARANCE IN PREDICTING GLOMERULAR FILTRATION RATE. ESTIMATED GFR IS NOT APPLICABLE FOR DIALYSIS PATIENTS. Specimen slightly [id number] 07:33:00* Test Item Value Reference Range Comments PHOSPHORUS (BEAKER) (test ifgr=151) 3.8 mg/dL 2.3-4.7 [id number] 07:33:00* Test Item Value Reference Range Comments MAGNESIUM (BEAKER) (test ferq=590) 1.5 mg/dL 1.6-2.6 HEPATIC FUNCTION [id number] 07:33:00* Test Item Value Reference Range Comments TOTAL PROTEIN (BEAKER) (test viqa=909) 4.9 gm/dL 6.0-8.3 ALBUMIN (BEAKER) (test zrbo=1522) 2.1 g/dL 3.5-5.0 BILIRUBIN TOTAL (BEAKER) (test lgdb=332) 4.3 mg/dL 0.2-1.2 BILIRUBIN DIRECT (BEAKER) (test nsef=519) 3.4 mg/dL 0.1-0.5 ALKALINE PHOSPHATASE (BEAKER) (test ccnh=698) 239 U/L 40-150 AST (SGOT) (BEAKER) (test hbtr=019) 60 U/L 5-34 ALT (SGPT) (BEAKER) (test vntv=599) 42 U/L 6-55 Specimen slightly ictericCBC W/PLT COUNT & AUTO [id number] 06:01:00 * Test Item Value Reference Range Comments WHITE BLOOD CELL COUNT (BEAKER) (test ioor=585) 11.0 K/ L 3.5-10.5 RED BLOOD CELL COUNT (BEAKER) (test pfdz=247) 2.92 M/ L 4.63-6.08 HEMOGLOBIN (BEAKER) (test rzex=010) 8.6 GM/DL 13.7-17.5 HEMATOCRIT (BEAKER) (test lhzc=644) 28.0 % 40.1-51.0 MEAN CORPUSCULAR VOLUME (BEAKER) (test vfqm=470) 95.9 fL 79.0-92.2 MEAN CORPUSCULAR HEMOGLOBIN (BEAKER) (test weau=458) 29.5 pg 25.7-32.2 MEAN CORPUSCULAR HEMOGLOBIN CONC (BEAKER) (test rlig=719) 30.7 GM/DL 32.3- 36.5 RED CELL DISTRIBUTION WIDTH (BEAKER) (test uuro=657) 19.6 % 11.6-14.4 PLATELET COUNT (BEAKER) (test ujnd=674) 134 K/CU MM 150-450 MEAN PLATELET VOLUME (BEAKER) (test dhrt=621) 10.5 fL 9.4-12.4 NUCLEATED RED BLOOD CELLS (BEAKER) (test uoxt=036) 0 /100 WBC 0-0 NEUTROPHILS RELATIVE PERCENT (BEAKER) (test ibsv=284) 67 % LYMPHOCYTES RELATIVE PERCENT (BEAKER) (test tqht=507) 15 % MONOCYTES RELATIVE PERCENT (BEAKER) (test xeks=546) 13 % EOSINOPHILS RELATIVE PERCENT (BEAKER) (test npra=394) 4 % BASOPHILS RELATIVE PERCENT (BEAKER) (test ysvq=779) 1 % NEUTROPHILS ABSOLUTE COUNT (BEAKER) (test zslw=301) 7.31 K/ L 1.78-5.38 LYMPHOCYTES ABSOLUTE COUNT (BEAKER) (test dcif=534) 1.64 K/ L 1.32-3.57 MONOCYTES ABSOLUTE COUNT (BEAKER) (test uunt=223) 1.47 K/ L 0.30-0.82 EOSINOPHILS ABSOLUTE COUNT (BEAKER) (test xaiu=552) 0.39 K/ L 0.04-0.54 BASOPHILS ABSOLUTE COUNT (BEAKER) (test oxae=545) 0.05 K/ L 0.01-0.08 IMMATURE GRANULOCYTES-RELATIVE PERCENT (BEAKER) (test yudh=9259) 1 % 0-1 BASIC METABOLIC [id number] 07:43:00* Test Item Value Reference Range Comments SODIUM (BEAKER) (test dcja=924) 134 meq/L 136-145 POTASSIUM (BEAKER) (test uflt=324) 3.8 meq/L 3.5-5.1 CHLORIDE (BEAKER) (test acaq=063) 99 meq/L 98-107 CO2 (BEAKER) (test tqxr=788) 28 meq/L 22-29 BLOOD UREA NITROGEN (BEAKER) (test demo=746) 10 mg/dL 7-21 CREATININE (BEAKER) (test rkuq=194) 3.02 mg/dL 0.57-1.25 GLUCOSE RANDOM (BEAKER) (test hhkx=741) 72 mg/dL 70-105 CALCIUM (BEAKER) (test pujd=009) 7.4 mg/dL 8.4-10.2 EGFR (BEAKER) (test groe=6046) 24 mL/min/1.73 sq m ESTIMATED GFR IS NOT ACCURATE CREATININE CLEARANCE IN PREDICTING GLOMERULAR FILTRATION RATE. ESTIMATED GFR IS NOT APPLICABLE FOR DIALYSIS PATIENTS. Specimen moderately [id number] 07:30:00* Test Item Value Reference Range Comments PHOSPHORUS (BEAKER) (test mcbb=452) 3.5 mg/dL 2.3-4.7 [id number] 07:30:00* Test Item Value Reference Range Comments MAGNESIUM (BEAKER) (test smou=916) 1.6 mg/dL 1.6-2.6 HEPATIC FUNCTION [id number] 07:30:00* Test Item Value Reference Range Comments TOTAL PROTEIN (BEAKER) (test qgmo=015) 5.0 gm/dL 6.0-8.3 ALBUMIN (BEAKER) (test duvd=2559) 2.1 g/dL 3.5-5.0 BILIRUBIN TOTAL (BEAKER) (test kipe=527) 4.8 mg/dL 0.2-1.2 BILIRUBIN DIRECT (BEAKER) (test hvun=464) 3.8 mg/dL 0.1-0.5 ALKALINE PHOSPHATASE (BEAKER) (test rnbq=605) 221 U/L 40-150 AST (SGOT) (BEAKER) (test pbdz=886) 66 U/L 5-34 ALT (SGPT) (BEAKER) (test ywtv=628) 42 U/L 6-55 Specimen moderately ictericCBC W/PLT COUNT & AUTO [id number] 06:59: 00* Test Item Value Reference Range Comments WHITE BLOOD CELL COUNT (BEAKER) (test exnx=017) 8.4 K/ L 3.5-10.5 RED BLOOD CELL COUNT (BEAKER) (test xugb=678) 2.85 M/ L 4.63-6.08 HEMOGLOBIN (BEAKER) (test rjwj=142) 8.5 GM/DL 13.7-17.5 HEMATOCRIT (BEAKER) (test lbhd=209) 27.3 % 40.1-51.0 MEAN CORPUSCULAR VOLUME (BEAKER) (test haqt=318) 95.8 fL 79.0-92.2 MEAN CORPUSCULAR HEMOGLOBIN (BEAKER) (test ucxx=247) 29.8 pg 25.7-32.2 MEAN CORPUSCULAR HEMOGLOBIN CONC (BEAKER) (test shxh=216) 31.1 GM/DL 32.3- 36.5 RED CELL DISTRIBUTION WIDTH (BEAKER) (test xehp=185) 20.0 % 11.6-14.4 PLATELET COUNT (BEAKER) (test dklb=612) 125 K/CU MM 150-450 MEAN PLATELET VOLUME (BEAKER) (test fbqj=937) 9.5 fL 9.4-12.4 NUCLEATED RED BLOOD CELLS (BEAKER) (test cmrh=366) 0 /100 WBC 0-0 NEUTROPHILS RELATIVE PERCENT (BEAKER) (test uycz=112) 67 % LYMPHOCYTES RELATIVE PERCENT (BEAKER) (test wzhi=002) 14 % MONOCYTES RELATIVE PERCENT (BEAKER) (test ggmk=811) 14 % EOSINOPHILS RELATIVE PERCENT (BEAKER) (test maoz=251) 3 % BASOPHILS RELATIVE PERCENT (BEAKER) (test sueg=818) 1 % NEUTROPHILS ABSOLUTE COUNT (BEAKER) (test huss=461) 5.63 K/ L 1.78-5.38 LYMPHOCYTES ABSOLUTE COUNT (BEAKER) (test jyom=496) 1.20 K/ L 1.32-3.57 MONOCYTES ABSOLUTE COUNT (BEAKER) (test jvmx=294) 1.21 K/ L 0.30-0.82 EOSINOPHILS ABSOLUTE COUNT (BEAKER) (test ikvr=898) 0.26 K/ L 0.04-0.54 BASOPHILS ABSOLUTE COUNT (BEAKER) (test lhiy=720) 0.06 K/ L 0.01-0.08 IMMATURE GRANULOCYTES-RELATIVE PERCENT (BEAKER) (test kfrm=8150) 1 % 0-1 CBC W/PLT COUNT & AUTO [id number] 08:19:00* Test Item Value Reference Range Comments WHITE BLOOD CELL COUNT (BEAKER) (test gblq=858) 10.5 K/ L 3.5-10.5 RED BLOOD CELL COUNT (BEAKER) (test crnr=678) 2.81 M/ L 4.63-6.08 HEMOGLOBIN (BEAKER) (test sskd=052) 8.5 GM/DL 13.7-17.5 HEMATOCRIT (BEAKER) (test wyuu=741) 26.5 % 40.1-51.0 MEAN CORPUSCULAR VOLUME (BEAKER) (test dngm=046) 94.3 fL 79.0-92.2 MEAN CORPUSCULAR HEMOGLOBIN (BEAKER) (test nlyr=671) 30.2 pg 25.7-32.2 MEAN CORPUSCULAR HEMOGLOBIN CONC (BEAKER) (test qsfk=074) 32.1 GM/DL 32.3- 36.5 RED CELL DISTRIBUTION WIDTH (BEAKER) (test epce=112) 20.3 % 11.6-14.4 PLATELET COUNT (BEAKER) (test hvtt=178) 141 K/CU MM 150-450 MEAN PLATELET VOLUME (BEAKER) (test nbjp=783) 10.3 fL 9.4-12.4 NUCLEATED RED BLOOD CELLS (BEAKER) (test sawz=603) 0 /100 WBC 0-0 NEUTROPHILS RELATIVE PERCENT (BEAKER) (test ijxs=544) 70 % LYMPHOCYTES RELATIVE PERCENT (BEAKER) (test cqqv=909) 13 % MONOCYTES RELATIVE PERCENT (BEAKER) (test htmp=543) 13 % EOSINOPHILS RELATIVE PERCENT (BEAKER) (test asqa=846) 3 % BASOPHILS RELATIVE PERCENT (BEAKER) (test oucm=704) 1 % NEUTROPHILS ABSOLUTE COUNT (BEAKER) (test qlbl=473) 7.33 K/ L 1.78-5.38 LYMPHOCYTES ABSOLUTE COUNT (BEAKER) (test rhpa=708) 1.35 K/ L 1.32-3.57 MONOCYTES ABSOLUTE COUNT (BEAKER) (test cnnl=715) 1.32 K/ L 0.30-0.82 EOSINOPHILS ABSOLUTE COUNT (BEAKER) (test huil=536) 0.32 K/ L 0.04-0.54 BASOPHILS ABSOLUTE COUNT (BEAKER) (test dadx=310) 0.06 K/ L 0.01-0.08 IMMATURE GRANULOCYTES-RELATIVE PERCENT (BEAKER) (test rkja=4443) 1 % 0-1 [id number] 08:05:00* Test Item Value Reference Range Comments PHOSPHORUS (BEAKER) (test olix=476) 4.9 mg/dL 2.3-4.7 [id number] 08:05:00* Test Item Value Reference Range Comments MAGNESIUM (BEAKER) (test hstb=506) 1.4 mg/dL 1.6-2.6 HEPATIC FUNCTION [id number] 08:05:00* Test Item Value Reference Range Comments TOTAL PROTEIN (BEAKER) (test wqsr=161) 4.9 gm/dL 6.0-8.3 ALBUMIN (BEAKER) (test wvxg=5993) 2.1 g/dL 3.5-5.0 BILIRUBIN TOTAL (BEAKER) (test qoyr=140) 4.8 mg/dL 0.2-1.2 BILIRUBIN DIRECT (BEAKER) (test hghe=714) 3.8 mg/dL 0.1-0.5 ALKALINE PHOSPHATASE (BEAKER) (test ytdg=310) 231 U/L 40-150 AST (SGOT) (BEAKER) (test rfda=928) 57 U/L 5-34 ALT (SGPT) (BEAKER) (test rcca=998) 41 U/L 6-55 Specimen moderately ictericBASIC METABOLIC [id number] 08:05:00* Test Item Value Reference Range Comments SODIUM (BEAKER) (test eazc=334) 131 meq/L 136-145 POTASSIUM (BEAKER) (test dylj=036) 3.6 meq/L 3.5-5.1 CHLORIDE (BEAKER) (test jzyh=670) 93 meq/L 98-107 CO2 (BEAKER) (test htym=654) 31 meq/L 22-29 BLOOD UREA NITROGEN (BEAKER) (test gorb=592) 17 mg/dL 7-21 CREATININE (BEAKER) (test kxuv=296) 4.66 mg/dL 0.57-1.25 GLUCOSE RANDOM (BEAKER) (test ygrz=319) 71 mg/dL 70-105 CALCIUM (BEAKER) (test ybgs=703) 7.4 mg/dL 8.4-10.2 EGFR (BEAKER) (test brfp=1649) 15 mL/min/1.73 sq m ESTIMATED GFR IS NOT ACCURATE CREATININE CLEARANCE IN PREDICTING GLOMERULAR FILTRATION RATE. ESTIMATED GFR IS NOT APPLICABLE FOR DIALYSIS PATIENTS. Specimen moderately ictericCBC W/PLT COUNT & AUTO [id number] 08:48: 00* Test Item Value Reference Range Comments WHITE BLOOD CELL COUNT (BEAKER) (test cftx=730) 10.9 K/ L 3.5-10.5 RED BLOOD CELL COUNT (BEAKER) (test iqse=615) 2.87 M/ L 4.63-6.08 HEMOGLOBIN (BEAKER) (test dhel=229) 8.6 GM/DL 13.7-17.5 HEMATOCRIT (BEAKER) (test qyqa=098) 27.4 % 40.1-51.0 MEAN CORPUSCULAR VOLUME (BEAKER) (test stuq=462) 95.5 fL 79.0-92.2 MEAN CORPUSCULAR HEMOGLOBIN (BEAKER) (test zuxd=177) 30.0 pg 25.7-32.2 MEAN CORPUSCULAR HEMOGLOBIN CONC (BEAKER) (test xuzp=767) 31.4 GM/DL 32.3- 36.5 RED CELL DISTRIBUTION WIDTH (BEAKER) (test amoi=924) 20.9 % 11.6-14.4 PLATELET COUNT (BEAKER) (test bshe=701) 139 K/CU MM 150-450 MEAN PLATELET VOLUME (BEAKER) (test cvmr=994) 9.3 fL 9.4-12.4 NUCLEATED RED BLOOD CELLS (BEAKER) (test xdwc=760) 0 /100 WBC 0-0 NEUTROPHILS RELATIVE PERCENT (BEAKER) (test xmhc=347) 74 % LYMPHOCYTES RELATIVE PERCENT (BEAKER) (test xffm=516) 11 % MONOCYTES RELATIVE PERCENT (BEAKER) (test bsed=146) 11 % EOSINOPHILS RELATIVE PERCENT (BEAKER) (test vxlb=206) 2 % BASOPHILS RELATIVE PERCENT (BEAKER) (test rdaq=560) 1 % NEUTROPHILS ABSOLUTE COUNT (BEAKER) (test ftzl=184) 8.03 K/ L 1.78-5.38 LYMPHOCYTES ABSOLUTE COUNT (BEAKER) (test lecw=088) 1.15 K/ L 1.32-3.57 MONOCYTES ABSOLUTE COUNT (BEAKER) (test lefy=786) 1.21 K/ L 0.30-0.82 EOSINOPHILS ABSOLUTE COUNT (BEAKER) (test runy=257) 0.26 K/ L 0.04-0.54 BASOPHILS ABSOLUTE COUNT (BEAKER) (test mywa=272) 0.05 K/ L 0.01-0.08 IMMATURE GRANULOCYTES-RELATIVE PERCENT (BEAKER) (test ixlb=1440) 2 % 0-1 HEPATIC FUNCTION [id number] 07:29:00* Test Item Value Reference Range Comments TOTAL PROTEIN (BEAKER) (test dxmi=780) 4.9 gm/dL 6.0-8.3 ALBUMIN (BEAKER) (test jicy=3038) 2.1 g/dL 3.5-5.0 BILIRUBIN TOTAL (BEAKER) (test hexd=396) 5.2 mg/dL 0.2-1.2 BILIRUBIN DIRECT (BEAKER) (test qzsq=513) 4.0 mg/dL 0.1-0.5 ALKALINE PHOSPHATASE (BEAKER) (test udpb=167) 235 U/L 40-150 AST (SGOT) (BEAKER) (test cdgf=963) 69 U/L 5-34 ALT (SGPT) (BEAKER) (test ffln=630) 49 U/L 6-55 Specimen moderately ictericCBC W/PLT COUNT & AUTO [id number] 06:39: 00* Test Item Value Reference Range Comments WHITE BLOOD CELL COUNT (BEAKER) (test lsxi=135) 13.0 K/ L 3.5-10.5 RED BLOOD CELL COUNT (BEAKER) (test elzp=239) 2.97 M/ L 4.63-6.08 HEMOGLOBIN (BEAKER) (test dykn=078) 8.8 GM/DL 13.7-17.5 HEMATOCRIT (BEAKER) (test osqv=764) 28.2 % 40.1-51.0 MEAN CORPUSCULAR VOLUME (BEAKER) (test zfjk=863) 94.9 fL 79.0-92.2 MEAN CORPUSCULAR HEMOGLOBIN (BEAKER) (test kpsb=263) 29.6 pg 25.7-32.2 MEAN CORPUSCULAR HEMOGLOBIN CONC (BEAKER) (test ddtk=201) 31.2 GM/DL 32.3- 36.5 RED CELL DISTRIBUTION WIDTH (BEAKER) (test bilo=845) 21.5 % 11.6-14.4 PLATELET COUNT (BEAKER) (test lnbg=576) 183 K/CU MM 150-450 MEAN PLATELET VOLUME (BEAKER) (test idbc=697) 9.7 fL 9.4-12.4 NUCLEATED RED BLOOD CELLS (BEAKER) (test hmbr=546) 0 /100 WBC 0-0 NEUTROPHILS RELATIVE PERCENT (BEAKER) (test oyzd=054) 76 % LYMPHOCYTES RELATIVE PERCENT (BEAKER) (test rkvz=154) 9 % MONOCYTES RELATIVE PERCENT (BEAKER) (test zwnm=099) 9 % EOSINOPHILS RELATIVE PERCENT (BEAKER) (test fsaa=362) 4 % BASOPHILS RELATIVE PERCENT (BEAKER) (test eiyg=961) 1 % NEUTROPHILS ABSOLUTE COUNT (BEAKER) (test okrg=188) 9.83 K/ L 1.78-5.38 LYMPHOCYTES ABSOLUTE COUNT (BEAKER) (test zqbp=082) 1.13 K/ L 1.32-3.57 MONOCYTES ABSOLUTE COUNT (BEAKER) (test xszn=922) 1.20 K/ L 0.30-0.82 EOSINOPHILS ABSOLUTE COUNT (BEAKER) (test xudh=058) 0.45 K/ L 0.04-0.54 BASOPHILS ABSOLUTE COUNT (BEAKER) (test pxno=099) 0.07 K/ L 0.01-0.08 IMMATURE GRANULOCYTES-RELATIVE PERCENT (BEAKER) (test ektg=3271) 2 % 0-1 HEPATIC FUNCTION [id number] 05:26:00* Test Item Value Reference Range Comments TOTAL PROTEIN (BEAKER) (test jvwh=119) 4.9 gm/dL 6.0-8.3 ALBUMIN (BEAKER) (test dgnn=9377) 2.1 g/dL 3.5-5.0 BILIRUBIN TOTAL (BEAKER) (test vhbb=676) 5.2 mg/dL 0.2-1.2 BILIRUBIN DIRECT (BEAKER) (test qdqd=885) 4.2 mg/dL 0.1-0.5 ALKALINE PHOSPHATASE (BEAKER) (test zotg=185) 237 U/L 40-150 AST (SGOT) (BEAKER) (test qcex=928) 64 U/L 5-34 ALT (SGPT) (BEAKER) (test kcsf=707) 49 U/L 6-55 Specimen moderately ictericCBC W/PLT COUNT & AUTO [id number] 06:16: 00* Test Item Value Reference Range Comments WHITE BLOOD CELL COUNT (BEAKER) (test crub=881) 13.9 K/ L 3.5-10.5 RED BLOOD CELL COUNT (BEAKER) (test phor=810) 2.96 M/ L 4.63-6.08 HEMOGLOBIN (BEAKER) (test ccic=561) 8.8 GM/DL 13.7-17.5 HEMATOCRIT (BEAKER) (test gdws=696) 28.0 % 40.1-51.0 MEAN CORPUSCULAR VOLUME (BEAKER) (test gexz=017) 94.6 fL 79.0-92.2 MEAN CORPUSCULAR HEMOGLOBIN (BEAKER) (test vevi=169) 29.7 pg 25.7-32.2 MEAN CORPUSCULAR HEMOGLOBIN CONC (BEAKER) (test regf=540) 31.4 GM/DL 32.3- 36.5 RED CELL DISTRIBUTION WIDTH (BEAKER) (test dbea=855) 22.1 % 11.6-14.4 PLATELET COUNT (BEAKER) (test koea=434) 175 K/CU MM 150-450 MEAN PLATELET VOLUME (BEAKER) (test mxce=375) 9.8 fL 9.4-12.4 NUCLEATED RED BLOOD CELLS (BEAKER) (test sdqt=971) 0 /100 WBC 0-0 NEUTROPHILS RELATIVE PERCENT (BEAKER) (test eqhd=783) 78 % LYMPHOCYTES RELATIVE PERCENT (BEAKER) (test geli=663) 7 % MONOCYTES RELATIVE PERCENT (BEAKER) (test fnid=550) 8 % EOSINOPHILS RELATIVE PERCENT (BEAKER) (test ayrg=480) 3 % BASOPHILS RELATIVE PERCENT (BEAKER) (test hvcz=473) 0 % NEUTROPHILS ABSOLUTE COUNT (BEAKER) (test pixp=875) 10.83 K/ L 1.78-5.38 LYMPHOCYTES ABSOLUTE COUNT (BEAKER) (test ktiv=287) 1.01 K/ L 1.32-3.57 MONOCYTES ABSOLUTE COUNT (BEAKER) (test vkcq=183) 1.14 K/ L 0.30-0.82 EOSINOPHILS ABSOLUTE COUNT (BEAKER) (test glby=101) 0.46 K/ L 0.04-0.54 BASOPHILS ABSOLUTE COUNT (BEAKER) (test gjae=008) 0.06 K/ L 0.01-0.08 IMMATURE GRANULOCYTES-RELATIVE PERCENT (BEAKER) (test twtu=0910) 3 % 0-1 HEPATIC FUNCTION [id number] 05:42:00* Test Item Value Reference Range Comments TOTAL PROTEIN (BEAKER) (test ggri=878) 4.7 gm/dL 6.0-8.3 ALBUMIN (BEAKER) (test ecxr=9306) 2.1 g/dL 3.5-5.0 BILIRUBIN TOTAL (BEAKER) (test yivp=303) 5.4 mg/dL 0.2-1.2 BILIRUBIN DIRECT (BEAKER) (test jzuj=520) 4.2 mg/dL 0.1-0.5 ALKALINE PHOSPHATASE (BEAKER) (test knqh=981) 238 U/L 40-150 AST (SGOT) (BEAKER) (test iydd=960) 87 U/L 5-34 ALT (SGPT) (BEAKER) (test mtcy=214) 63 U/L 6-55 Specimen moderately ictericHEPATIC FUNCTION [id number] 06:00:00* Test Item Value Reference Range Comments TOTAL PROTEIN (BEAKER) (test ltxg=437) 4.9 gm/dL 6.0-8.3 ALBUMIN (BEAKER) (test pyvk=5105) 2.0 g/dL 3.5-5.0 BILIRUBIN TOTAL (BEAKER) (test gdxl=359) 5.6 mg/dL 0.2-1.2 BILIRUBIN DIRECT (BEAKER) (test duba=475) 4.5 mg/dL 0.1-0.5 ALKALINE PHOSPHATASE (BEAKER) (test wvjv=328) 264 U/L 40-150 AST (SGOT) (BEAKER) (test zrrw=306) 76 U/L 5-34 ALT (SGPT) (BEAKER) (test qjrj=670) 56 U/L 6-55 Specimen moderately ictericVANCOMYCIN LEVEL, [id number] 05:58:00* Test Item Value Reference Range Comments VANCOMYCIN TROUGH (BEAKER) (test ebnj=244) 20.5 ug/mL 10.0-20.0 CBC W/PLT COUNT & AUTO [id number] 05:48:00* Test Item Value Reference Range Comments WHITE BLOOD CELL COUNT (BEAKER) (test aorh=439) 16.3 K/ L 3.5-10.5 RED BLOOD CELL COUNT (BEAKER) (test afkk=740) 3.15 M/ L 4.63-6.08 HEMOGLOBIN (BEAKER) (test zdbp=413) 9.2 GM/DL 13.7-17.5 HEMATOCRIT (BEAKER) (test arxi=585) 29.5 % 40.1-51.0 MEAN CORPUSCULAR VOLUME (BEAKER) (test nfjk=411) 93.7 fL 79.0-92.2 MEAN CORPUSCULAR HEMOGLOBIN (BEAKER) (test qdyh=025) 29.2 pg 25.7-32.2 MEAN CORPUSCULAR HEMOGLOBIN CONC (BEAKER) (test lmtf=939) 31.2 GM/DL 32.3- 36.5 RED CELL DISTRIBUTION WIDTH (BEAKER) (test rpnb=851) 22.1 % 11.6-14.4 PLATELET COUNT (BEAKER) (test qdcx=868) 241 K/CU MM 150-450 MEAN PLATELET VOLUME (BEAKER) (test btxo=458) 9.9 fL 9.4-12.4 NUCLEATED RED BLOOD CELLS (BEAKER) (test vwpc=388) 0 /100 WBC 0-0 NEUTROPHILS RELATIVE PERCENT (BEAKER) (test oxug=829) 75 % LYMPHOCYTES RELATIVE PERCENT (BEAKER) (test itep=038) 10 % MONOCYTES RELATIVE PERCENT (BEAKER) (test nggw=951) 7 % EOSINOPHILS RELATIVE PERCENT (BEAKER) (test pvvy=976) 4 % BASOPHILS RELATIVE PERCENT (BEAKER) (test erki=933) 1 % NEUTROPHILS ABSOLUTE COUNT (BEAKER) (test fxuv=980) 12.21 K/ L 1.78-5.38 LYMPHOCYTES ABSOLUTE COUNT (BEAKER) (test wdrt=225) 1.63 K/ L 1.32-3.57 MONOCYTES ABSOLUTE COUNT (BEAKER) (test scpc=156) 1.18 K/ L 0.30-0.82 EOSINOPHILS ABSOLUTE COUNT (BEAKER) (test fvxs=651) 0.69 K/ L 0.04-0.54 BASOPHILS ABSOLUTE COUNT (BEAKER) (test yezs=412) 0.09 K/ L 0.01-0.08 IMMATURE GRANULOCYTES-RELATIVE PERCENT (BEAKER) (test xdte=1412) 3 % 0-1 BASIC METABOLIC [id number] 06:23:00* Test Item Value Reference Range Comments SODIUM (BEAKER) (test attq=279) 133 meq/L 136-145 POTASSIUM (BEAKER) (test icju=595) 4.1 meq/L 3.5-5.1 CHLORIDE (BEAKER) (test vtfj=028) 99 meq/L 98-107 CO2 (BEAKER) (test jwqc=648) 25 meq/L 22-29 BLOOD UREA NITROGEN (BEAKER) (test nxlw=135) 18 mg/dL 7-21 CREATININE (BEAKER) (test zxtg=274) 4.24 mg/dL 0.57-1.25 GLUCOSE RANDOM (BEAKER) (test aegr=611) 65 mg/dL 70-105 CALCIUM (BEAKER) (test lsin=375) 7.7 mg/dL 8.4-10.2 EGFR (BEAKER) (test irfo=1975) 16 mL/min/1.73 sq m ESTIMATED GFR IS NOT ACCURATE CREATININE CLEARANCE IN PREDICTING GLOMERULAR FILTRATION RATE. ESTIMATED GFR IS NOT APPLICABLE FOR DIALYSIS PATIENTS. Specimen moderately ictericHEPATIC FUNCTION [id number] 06:22:00* Test Item Value Reference Range Comments TOTAL PROTEIN (BEAKER) (test ebsu=519) 5.0 gm/dL 6.0-8.3 ALBUMIN (BEAKER) (test okto=6361) 2.1 g/dL 3.5-5.0 BILIRUBIN TOTAL (BEAKER) (test ulew=463) 5.9 mg/dL 0.2-1.2 BILIRUBIN DIRECT (BEAKER) (test hilh=013) 4.9 mg/dL 0.1-0.5 ALKALINE PHOSPHATASE (BEAKER) (test pajq=493) 278 U/L 40-150 AST (SGOT) (BEAKER) (test mvxc=971) 70 U/L 5-34 ALT (SGPT) (BEAKER) (test xgvv=555) 51 U/L 6-55 Specimen moderately ictericCBC W/PLT COUNT & AUTO [id number] 06:04: 00* Test Item Value Reference Range Comments WHITE BLOOD CELL COUNT (BEAKER) (test yxvc=556) 16.5 K/ L 4.0-10.0 RED BLOOD CELL COUNT (BEAKER) (test bcfp=682) 3.00 M/ L 4.20-5.80 HEMOGLOBIN (BEAKER) (test yshw=911) 9.4 GM/DL 13.0-16.8 HEMATOCRIT (BEAKER) (test lpbq=157) 28.8 % 40.0-50.0 MEAN CORPUSCULAR VOLUME (BEAKER) (test vtfg=336) 96.1 fL 82.0-98.0 MEAN CORPUSCULAR HEMOGLOBIN (BEAKER) (test qcvu=159) 31.4 pg 27.0-33.0 MEAN CORPUSCULAR HEMOGLOBIN CONC (BEAKER) (test kauy=317) 32.7 GM/DL 32.0- 36.0 RED CELL DISTRIBUTION WIDTH (BEAKER) (test wrfr=291) 20.7 % 10.3-14.2 PLATELET COUNT (BEAKER) (test zofd=671) 220 K/CU MM 150-430 MEAN PLATELET VOLUME (BEAKER) (test sjtp=982) 9.1 fL 6.5-10.5 NUCLEATED RED BLOOD CELLS (BEAKER) (test ahay=135) 0 /100 WBC 0-0 NEUTROPHILS RELATIVE PERCENT (BEAKER) (test uenl=896) 74 % LYMPHOCYTES RELATIVE PERCENT (BEAKER) (test zldj=200) 11 % MONOCYTES RELATIVE PERCENT (BEAKER) (test ufrh=561) 8 % EOSINOPHILS RELATIVE PERCENT (BEAKER) (test lxwf=585) 7 % BASOPHILS RELATIVE PERCENT (BEAKER) (test oubi=450) 1 % NEUTROPHILS ABSOLUTE COUNT (BEAKER) (test exxr=694) 12.10 K/ L 1.80-8.00 LYMPHOCYTES ABSOLUTE COUNT (BEAKER) (test etul=546) 1.77 K/ L 1.48-4.50 MONOCYTES ABSOLUTE COUNT (BEAKER) (test uqud=553) 1.30 K/ L 0.00-1.30 EOSINOPHILS ABSOLUTE COUNT (BEAKER) (test lsep=482) 1.17 K/ L 0.00-0.50 BASOPHILS ABSOLUTE COUNT (BEAKER) (test gcqi=864) 0.11 K/ L 0.00-0.20 0.00CBC W/PLT COUNT & AUTO [id number] 13:24:00* Test Item Value Reference Range Comments WHITE BLOOD CELL COUNT (BEAKER) (test gkbv=047) 15.2 K/ L 4.0-10.0 RED BLOOD CELL COUNT (BEAKER) (test unzx=670) 3.17 M/ L 4.20-5.80 HEMOGLOBIN (BEAKER) (test rixh=827) 9.7 GM/DL 13.0-16.8 HEMATOCRIT (BEAKER) (test qnea=677) 30.4 % 40.0-50.0 MEAN CORPUSCULAR VOLUME (BEAKER) (test ujyv=863) 95.7 fL 82.0-98.0 MEAN CORPUSCULAR HEMOGLOBIN (BEAKER) (test rxpg=069) 30.4 pg 27.0-33.0 MEAN CORPUSCULAR HEMOGLOBIN CONC (BEAKER) (test ejbs=485) 31.8 GM/DL 32.0- 36.0 RED CELL DISTRIBUTION WIDTH (BEAKER) (test tjfe=805) 22.2 % 10.3-14.2 PLATELET COUNT (BEAKER) (test phos=877) 213 K/CU MM 150-430 MEAN PLATELET VOLUME (BEAKER) (test umpy=407) 9.8 fL 6.5-10.5 NUCLEATED RED BLOOD CELLS (BEAKER) (test aqzl=991) 0 /100 WBC 0-0 0.000.700.000.000.000.00(MANUAL DIFFERENTIAL)2017-01-15 13:24:00* Test Item Value Reference Range Comments NEUTROPHILS - REL (DIFF) (BEAKER) (test cxmx=8786) 69 % LYMPHOCYTES - REL (DIFF) (BEAKER) (test klxa=5039) 8 % MONOCYTES - REL (DIFF) (BEAKER) (test eqqn=6830) 5 % EOSINOPHILS - REL (DIFF) (BEAKER) (test bdur=0423) 5 % METAMYELOCYTES-REL (DIFF) (BEAKER) (test phdt=725) 1 % 0-0 MYELOCYTES-REL (DIFF) (BEAKER) (test nfkp=5920) 1 % 0-0 BANDS - REL (DIFF) (BEAKER) (test kzdm=7119) 11 % 0-10 NEUTROPHILS - ABS (DIFF) (BEAKER) (test jchy=9757) 10.49 K/ L 1.80-8.00 LYMPHOCYTES - ABS (DIFF) (BEAKER) (test ayjh=8969) 1.22 K/ L 1.48-4.50 MONOCYTES - ABS (DIFF) (BEAKER) (test cnli=0545) 0.76 K/ L 0.00-1.30 EOSINOPHILS - ABS (DIFF) (BEAKER) (test oswc=3563) 0.76 K/ L 0.00-0.50 METAMYELOCTYES - ABS (DIFF) (BEAKER) (test njvt=420) 0.15 K/ L 0.00-0.00 BANDS-ABS (DIFF) (BEAKER) (test nlvn=5992) 1.7 K/ L 0.0-0.8 MYELOCYTES-ABS (DIFF) (BEAKER) (test huid=6462) 0.15 K/ L 0.00-0.00 TOTAL COUNTED (BEAKER) (test drrd=1236) 100 BANDS + SEGMENTED NEUTROPHILS (BEAKER) (test eblr=6006) 12.16 WBC MORPHOLOGY (BEAKER) (test ysxs=942) Normal PLT MORPHOLOGY (BEAKER) (test mblc=246) Normal RBC MORPHOLOGY (BEAKER) (test gwoj=962) Normal BASIC METABOLIC [id number] 07:37:00* Test Item Value Reference Range Comments SODIUM (BEAKER) (test inei=752) 136 meq/L 136-145 POTASSIUM (BEAKER) (test ycbj=245) 3.8 meq/L 3.5-5.1 CHLORIDE (BEAKER) (test lxva=517) 101 meq/L 98-107 CO2 (BEAKER) (test vimm=855) 26 meq/L 22-29 BLOOD UREA NITROGEN (BEAKER) (test lucq=190) 13 mg/dL 7-21 CREATININE (BEAKER) (test exvs=368) 3.02 mg/dL 0.57-1.25 GLUCOSE RANDOM (BEAKER) (test pzmf=271) 69 mg/dL 70-105 CALCIUM (BEAKER) (test cazo=114) 8.2 mg/dL 8.4-10.2 EGFR (BEAKER) (test ailq=5342) 24 mL/min/1.73 sq m ESTIMATED GFR IS NOT ACCURATE CREATININE CLEARANCE IN PREDICTING GLOMERULAR FILTRATION RATE. ESTIMATED GFR IS NOT APPLICABLE FOR DIALYSIS PATIENTS. Specimen moderately ictericHEPATIC FUNCTION [id number] 07:26:00* Test Item Value Reference Range Comments TOTAL PROTEIN (BEAKER) (test dxvs=836) 5.1 gm/dL 6.0-8.3 ALBUMIN (BEAKER) (test mjnk=1911) 2.1 g/dL 3.5-5.0 BILIRUBIN TOTAL (BEAKER) (test btfg=430) 6.7 mg/dL 0.2-1.2 BILIRUBIN DIRECT (BEAKER) (test wzeh=818) 5.4 mg/dL 0.1-0.5 ALKALINE PHOSPHATASE (BEAKER) (test jhic=210) 284 U/L 40-150 AST (SGOT) (BEAKER) (test egth=902) 80 U/L 5-34 ALT (SGPT) (BEAKER) (test lori=375) 60 U/L 6-55 Specimen moderately ictericBLOOD [id number] 18:00:00* Test Item Value Reference Range Comments CULTURE (BEAKER) (test zpux=1112) No growth in 5 days CBC W/PLT COUNT & AUTO [id number] 14:23:00* Test Item Value Reference Range Comments WHITE BLOOD CELL COUNT (BEAKER) (test exni=089) 14.9 K/ L 4.0-10.0 RED BLOOD CELL COUNT (BEAKER) (test dkbj=621) 3.06 M/ L 4.20-5.80 HEMOGLOBIN (BEAKER) (test acsd=211) 9.4 GM/DL 13.0-16.8 HEMATOCRIT (BEAKER) (test mdjt=287) 29.2 % 40.0-50.0 MEAN CORPUSCULAR VOLUME (BEAKER) (test ddnp=300) 95.5 fL 82.0-98.0 MEAN CORPUSCULAR HEMOGLOBIN (BEAKER) (test zrtx=445) 30.7 pg 27.0-33.0 MEAN CORPUSCULAR HEMOGLOBIN CONC (BEAKER) (test cvpt=140) 32.1 GM/DL 32.0- 36.0 RED CELL DISTRIBUTION WIDTH (BEAKER) (test fwqy=587) 21.6 % 10.3-14.2 PLATELET COUNT (BEAKER) (test asav=305) 207 K/CU MM 150-430 MEAN PLATELET VOLUME (BEAKER) (test jkul=601) 9.8 fL 6.5-10.5 NUCLEATED RED BLOOD CELLS (BEAKER) (test dncd=509) 0 /100 WBC 0-0 0.000.700.000.000.000.000.000.000.000.000.000.700.000.000.000.000.000.000.000.00 0.000.700.000.000.000.000.000.000.000.000.000.700.000.000.000.00 (MANUAL DIFFERENTIAL)2017-01-14 14:23:00* Test Item Value Reference Range Comments NEUTROPHILS - REL (DIFF) (BEAKER) (test xcpn=9033) 72 % LYMPHOCYTES - REL (DIFF) (BEAKER) (test uytw=4346) 4 % MONOCYTES - REL (DIFF) (BEAKER) (test jxbt=4843) 8 % METAMYELOCYTES-REL (DIFF) (BEAKER) (test aeul=545) 1 % 0-0 MYELOCYTES-REL (DIFF) (BEAKER) (test aoyq=2831) 1 % 0-0 BANDS - REL (DIFF) (BEAKER) (test iovi=1298) 14 % 0-10 NEUTROPHILS - ABS (DIFF) (BEAKER) (test dfmo=4817) 10.73 K/ L 1.80-8.00 LYMPHOCYTES - ABS (DIFF) (BEAKER) (test bfqk=5683) 0.60 K/ L 1.48-4.50 MONOCYTES - ABS (DIFF) (BEAKER) (test raii=6817) 1.19 K/ L 0.00-1.30 METAMYELOCTYES - ABS (DIFF) (BEAKER) (test mznw=298) 0.15 K/ L 0.00-0.00 BANDS-ABS (DIFF) (BEAKER) (test dhyr=7681) 2.1 K/ L 0.0-0.8 MYELOCYTES-ABS (DIFF) (BEAKER) (test kuvc=0564) 0.15 K/ L 0.00-0.00 TOTAL COUNTED (BEAKER) (test ndzj=1817) 100 BANDS + SEGMENTED NEUTROPHILS (BEAKER) (test zuhl=2191) 12.81 WBC MORPHOLOGY (BEAKER) (test qyky=531) Normal PLT MORPHOLOGY (BEAKER) (test talo=984) Normal SCHISTOCYTES (BEAKER) (test eflb=206) 1+ few ANISOCYTOSIS (BEAKER) (test ieyd=358) 2+ moderate POLYCHROMATOPHILLIC RBCS(BEAKER) (test arqh=017) 2+ moderate TARGET CELLS (BEAKER) (test tcaa=622) 2+ moderate BODY FLUID CULTURE + GRAM [id number] 09:08:00* Test Item Value Reference Range Comments CULTURE (BEAKER) (test pzgw=5298) No growth GRAM STAIN RESULT (BEAKER) (test sgnh=6436) <1+ WBCs GRAM STAIN RESULT (BEAKER) (test tpya=37472) No organisms seen BASIC METABOLIC [id number] 07:15:00* Test Item Value Reference Range Comments SODIUM (BEAKER) (test oavp=345) 134 meq/L 136-145 POTASSIUM (BEAKER) (test olow=031) 3.9 meq/L 3.5-5.1 CHLORIDE (BEAKER) (test kovc=904) 99 meq/L 98-107 CO2 (BEAKER) (test penr=350) 24 meq/L 22-29 BLOOD UREA NITROGEN (BEAKER) (test rfxo=854) 30 mg/dL 7-21 CREATININE (BEAKER) (test wudo=647) 4.50 mg/dL 0.57-1.25 GLUCOSE RANDOM (BEAKER) (test kwnm=826) 69 mg/dL 70-105 CALCIUM (BEAKER) (test hpgm=268) 7.9 mg/dL 8.4-10.2 EGFR (BEAKER) (test nksz=6556) 15 mL/min/1.73 sq m ESTIMATED GFR IS NOT ACCURATE CREATININE CLEARANCE IN PREDICTING GLOMERULAR FILTRATION RATE. ESTIMATED GFR IS NOT APPLICABLE FOR DIALYSIS PATIENTS. Specimen moderately ictericHEPATIC FUNCTION [id number] 07:07:00* Test Item Value Reference Range Comments TOTAL PROTEIN (BEAKER) (test qlvk=657) 4.9 gm/dL 6.0-8.3 ALBUMIN (BEAKER) (test gmby=0156) 2.0 g/dL 3.5-5.0 BILIRUBIN TOTAL (BEAKER) (test ojlm=409) 7.2 mg/dL 0.2-1.2 BILIRUBIN DIRECT (BEAKER) (test qydw=224) 5.6 mg/dL 0.1-0.5 ALKALINE PHOSPHATASE (BEAKER) (test vzmu=437) 289 U/L 40-150 AST (SGOT) (BEAKER) (test nshq=105) 84 U/L 5-34 ALT (SGPT) (BEAKER) (test pgux=779) 61 U/L 6-55 Specimen moderately ictericCBC W/PLT COUNT & AUTO [id number] 07:59: 00* Test Item Value Reference Range Comments WHITE BLOOD CELL COUNT (BEAKER) (test bgae=394) 16.0 K/ L 4.0-10.0 RED BLOOD CELL COUNT (BEAKER) (test kvls=123) 3.01 M/ L 4.20-5.80 HEMOGLOBIN (BEAKER) (test cwzr=691) 9.2 GM/DL 13.0-16.8 HEMATOCRIT (BEAKER) (test bxdv=221) 28.6 % 40.0-50.0 MEAN CORPUSCULAR VOLUME (BEAKER) (test zfbz=196) 95.3 fL 82.0-98.0 MEAN CORPUSCULAR HEMOGLOBIN (BEAKER) (test ipcd=859) 30.6 pg 27.0-33.0 MEAN CORPUSCULAR HEMOGLOBIN CONC (BEAKER) (test gtna=501) 32.1 GM/DL 32.0- 36.0 RED CELL DISTRIBUTION WIDTH (BEAKER) (test empu=281) 20.5 % 10.3-14.2 PLATELET COUNT (BEAKER) (test sjfx=226) 207 K/CU MM 150-430 MEAN PLATELET VOLUME (BEAKER) (test drsu=142) 9.4 fL 6.5-10.5 NUCLEATED RED BLOOD CELLS (BEAKER) (test gyjn=980) 0 /100 WBC 0-0 NEUTROPHILS RELATIVE PERCENT (BEAKER) (test ugkk=600) 82 % LYMPHOCYTES RELATIVE PERCENT (BEAKER) (test ermt=131) 5 % MONOCYTES RELATIVE PERCENT (BEAKER) (test rjvs=596) 5 % EOSINOPHILS RELATIVE PERCENT (BEAKER) (test ltoy=470) 7 % BASOPHILS RELATIVE PERCENT (BEAKER) (test mmjh=892) 0 % NEUTROPHILS ABSOLUTE COUNT (BEAKER) (test plae=266) 13.10 K/ L 1.80-8.00 LYMPHOCYTES ABSOLUTE COUNT (BEAKER) (test ryda=230) 0.88 K/ L 1.48-4.50 MONOCYTES ABSOLUTE COUNT (BEAKER) (test ihls=807) 0.86 K/ L 0.00-1.30 EOSINOPHILS ABSOLUTE COUNT (BEAKER) (test ards=270) 1.12 K/ L 0.00-0.50 BASOPHILS ABSOLUTE COUNT (BEAKER) (test przs=450) 0.06 K/ L 0.00-0.20 0.000.700.000.000.000.00(MANUAL DIFFERENTIAL)2017-01-13 07:59:00* Test Item Value Reference Range Comments TOTAL COUNTED (BEAKER) (test xgnm=4319) WBC MORPHOLOGY (BEAKER) (test xtds=760) Normal PLT MORPHOLOGY (BEAKER) (test wwlj=512) Normal BASOPHILIC STIPPLING (BEAKER) (test juih=515) Present BASIC METABOLIC [id number] 05:27:00* Test Item Value Reference Range Comments SODIUM (BEAKER) (test plvu=595) 138 meq/L 136-145 POTASSIUM (BEAKER) (test dzan=198) 4.0 meq/L 3.5-5.1 CHLORIDE (BEAKER) (test tydo=929) 101 meq/L 98-107 CO2 (BEAKER) (test aqtg=984) 29 meq/L 22-29 BLOOD UREA NITROGEN (BEAKER) (test tuoi=633) 22 mg/dL 7-21 CREATININE (BEAKER) (test cnxf=477) 3.23 mg/dL 0.57-1.25 GLUCOSE RANDOM (BEAKER) (test wixv=244) 74 mg/dL 70-105 CALCIUM (BEAKER) (test idgl=811) 8.5 mg/dL 8.4-10.2 EGFR (BEAKER) (test ilxh=9523) 22 mL/min/1.73 sq m ESTIMATED GFR IS NOT ACCURATE CREATININE CLEARANCE IN PREDICTING GLOMERULAR FILTRATION RATE. ESTIMATED GFR IS NOT APPLICABLE FOR DIALYSIS PATIENTS. Specimen moderately ictericHEPATIC FUNCTION [id number] 05:23:00* Test Item Value Reference Range Comments TOTAL PROTEIN (BEAKER) (test sqgg=746) 5.1 gm/dL 6.0-8.3 ALBUMIN (BEAKER) (test wxwq=9080) 2.2 g/dL 3.5-5.0 BILIRUBIN TOTAL (BEAKER) (test smta=940) 8.9 mg/dL 0.2-1.2 BILIRUBIN DIRECT (BEAKER) (test hldg=345) 6.9 mg/dL 0.1-0.5 ALKALINE PHOSPHATASE (BEAKER) (test gfbc=454) 287 U/L 40-150 AST (SGOT) (BEAKER) (test tzhl=234) 91 U/L 5-34 ALT (SGPT) (BEAKER) (test xsmt=715) 65 U/L 6-55 Specimen moderately ictericHEPATITIS B SURFACE [id number] 15:54:00* Test Item Value Reference Range Comments HEPATITIS B SURFACE ANTIGEN (2) (BEAKER) (test bqcv=4764) Nonreactive Nonreactive [id number] 10:50:00* Test Item Value Reference Range Comments PROCALCITONIN (BEAKER) (test jjur=9782) 10.91 ng/mL <0.05 SEPSIS RISK (ng/mL)Low: 0.05-0.50Intermediate: 0.51-2.00High: > =[id number] 10:50:00* Test Item Value Reference Range Comments PROCALCITONIN (BEAKER) (test bkfv=1345) 13.27 ng/mL <0.05 SEPSIS RISK (ng/mL)Low: 0.05-0.50Intermediate: 0.51-2.00High: > =2.01CBC W/PLT COUNT & AUTO [id number] 08:38:00* Test Item Value Reference Range Comments WHITE BLOOD CELL COUNT (BEAKER) (test uhva=611) 15.5 K/ L 4.0-10.0 RED BLOOD CELL COUNT (BEAKER) (test sggg=672) 3.17 M/ L 4.20-5.80 HEMOGLOBIN (BEAKER) (test pxsz=040) 9.3 GM/DL 13.0-16.8 HEMATOCRIT (BEAKER) (test zmmy=531) 30.1 % 40.0-50.0 MEAN CORPUSCULAR VOLUME (BEAKER) (test hugq=241) 94.8 fL 82.0-98.0 MEAN CORPUSCULAR HEMOGLOBIN (BEAKER) (test osgf=723) 29.2 pg 27.0-33.0 MEAN CORPUSCULAR HEMOGLOBIN CONC (BEAKER) (test sjrk=478) 30.8 GM/DL 32.0- 36.0 RED CELL DISTRIBUTION WIDTH (BEAKER) (test qlzj=078) 22.0 % 10.3-14.2 PLATELET COUNT (BEAKER) (test uhau=658) 255 K/CU MM 150-430 MEAN PLATELET VOLUME (BEAKER) (test kbkg=893) 9.5 fL 6.5-10.5 NUCLEATED RED BLOOD CELLS (BEAKER) (test vdez=818) 0 /100 WBC 0-0 0.000.700.000.000.000.00(MANUAL DIFFERENTIAL)2017-01-12 08:38:00* Test Item Value Reference Range Comments NEUTROPHILS - REL (DIFF) (BEAKER) (test ouoh=0051) 69 % LYMPHOCYTES - REL (DIFF) (BEAKER) (test fuxe=4735) 8 % MONOCYTES - REL (DIFF) (BEAKER) (test cjah=2512) 11 % EOSINOPHILS - REL (DIFF) (BEAKER) (test yqxn=1159) 3 % METAMYELOCYTES-REL (DIFF) (BEAKER) (test jfpc=167) 1 % 0-0 MYELOCYTES-REL (DIFF) (BEAKER) (test mbtl=9494) 4 % 0-0 BANDS - REL (DIFF) (BEAKER) (test yaye=0516) 4 % 0-10 NEUTROPHILS - ABS (DIFF) (BEAKER) (test xusb=6078) 10.70 K/ L 1.80-8.00 LYMPHOCYTES - ABS (DIFF) (BEAKER) (test wsly=2556) 1.24 K/ L 1.48-4.50 MONOCYTES - ABS (DIFF) (BEAKER) (test klfr=8140) 1.71 K/ L 0.00-1.30 EOSINOPHILS - ABS (DIFF) (BEAKER) (test oskc=3446) 0.47 K/ L 0.00-0.50 METAMYELOCTYES - ABS (DIFF) (BEAKER) (test fxnh=949) 0.16 K/ L 0.00-0.00 BANDS-ABS (DIFF) (BEAKER) (test xzjd=8276) 0.6 K/ L 0.0-0.8 MYELOCYTES-ABS (DIFF) (BEAKER) (test zzxa=7068) 0.62 K/ L 0.00-0.00 TOTAL COUNTED (BEAKER) (test xjjy=7157) 100 BANDS + SEGMENTED NEUTROPHILS (BEAKER) (test tljw=6236) 11.32 WBC MORPHOLOGY (BEAKER) (test zaob=062) Normal PLT MORPHOLOGY (BEAKER) (test oeyd=316) Normal RBC MORPHOLOGY (BEAKER) (test eysc=478) Normal BASIC METABOLIC [id number] 04:00:00* Test Item Value Reference Range Comments SODIUM (BEAKER) (test ntqr=101) 142 meq/L 136-145 POTASSIUM (BEAKER) (test mkrr=082) 4.1 meq/L 3.5-5.1 CHLORIDE (BEAKER) (test mgsp=743) 104 meq/L 98-107 CO2 (BEAKER) (test onqz=662) 25 meq/L 22-29 BLOOD UREA NITROGEN (BEAKER) (test tvrq=914) 51 mg/dL 7-21 CREATININE (BEAKER) (test flhu=963) 5.07 mg/dL 0.57-1.25 GLUCOSE RANDOM (BEAKER) (test kilv=636) 83 mg/dL 70-105 CALCIUM (BEAKER) (test kupb=575) 8.4 mg/dL 8.4-10.2 EGFR (BEAKER) (test grrr=8624) 13 mL/min/1.73 sq m ESTIMATED GFR IS NOT ACCURATE CREATININE CLEARANCE IN PREDICTING GLOMERULAR FILTRATION RATE. ESTIMATED GFR IS NOT APPLICABLE FOR DIALYSIS PATIENTS. Specimen moderately ictericHEPATIC FUNCTION [id number] 03:58:00* Test Item Value Reference Range Comments TOTAL PROTEIN (BEAKER) (test cycw=691) 5.2 gm/dL 6.0-8.3 ALBUMIN (BEAKER) (test ykss=9303) 2.1 g/dL 3.5-5.0 BILIRUBIN TOTAL (BEAKER) (test yfni=661) 10.3 mg/dL 0.2-1.2 BILIRUBIN DIRECT (BEAKER) (test tcpi=168) 8.1 mg/dL 0.1-0.5 ALKALINE PHOSPHATASE (BEAKER) (test emma=812) 239 U/L 40-150 AST (SGOT) (BEAKER) (test wckm=494) 76 U/L 5-34 ALT (SGPT) (BEAKER) (test snsv=282) 53 U/L 6-55 Specimen moderately ictericVANCOMYCIN LEVEL, [id number] 03:57:00* Test Item Value Reference Range Comments VANCOMYCIN TROUGH (BEAKER) (test zfkp=837) 18.8 ug/mL 10.0-20.0 [id number] 03:55:00* Test Item Value Reference Range Comments PARTIAL THROMBOPLASTIN TIME (BEAKER) (test fims=051) 37.5 seconds 22.5-36.0 PROTHROMBIN [id number] 03:54:00* Test Item Value Reference Range Comments PROTIME (BEAKER) (test zjun=931) 17.1 seconds 11.7-14.7 INR (BEAKER) (test arxm=920) 1.4 <=5.9 RECOMMENDED COUMADIN/WARFARIN INR THERAPY RANGESSTANDARD DOSE: 2.0 - 3.0 Includes: PROPHYLAXIS for venous thrombosis, systemic embolization; TREATMENT for venous thrombosis and/or pulmonary embolus.HIGH RISK: Target INR is 2.5-3.5 for patients with mechanical heart valves.POCT-GLUCOSE [id number] 17:37:00 * Test Item Value Reference Range Comments POC-GLUCOSE METER (BEAKER) (test hkct=7233) 88 mg/dL 70-110 TESTED AT [address] [address] [id number] 12:44:00* Test Item Value Reference Range Comments PROCALCITONIN (BEAKER) (test dtdu=1269) 13.61 ng/mL <0.05 SEPSIS RISK (ng/mL)Low: 0.05-0.50Intermediate: 0.51-2.00High: > =2.01POCT-GLUCOSE [id number] 12:21:00* Test Item Value Reference Range Comments POC-GLUCOSE METER (BEAKER) (test vpco=8198) 117 mg/dL 70-110 TESTED AT [address] [address] POCT-GLUCOSE [id number] 08:10:00* Test Item Value Reference Range Comments POC-GLUCOSE METER (BEAKER) (test hlee=0333) 102 mg/dL 70-110 TESTED AT [address] [address] CBC W/PLT COUNT & AUTO [id number] 08:08:00* Test Item Value Reference Range Comments WHITE BLOOD CELL COUNT (BEAKER) (test beuc=137) 15.3 K/ L 4.0-10.0 RED BLOOD CELL COUNT (BEAKER) (test xzfl=199) 3.06 M/ L 4.20-5.80 HEMOGLOBIN (BEAKER) (test xlvm=913) 9.3 GM/DL 13.0-16.8 HEMATOCRIT (BEAKER) (test anxg=317) 28.9 % 40.0-50.0 MEAN CORPUSCULAR VOLUME (BEAKER) (test qbrl=860) 94.3 fL 82.0-98.0 MEAN CORPUSCULAR HEMOGLOBIN (BEAKER) (test zodw=510) 30.3 pg 27.0-33.0 MEAN CORPUSCULAR HEMOGLOBIN CONC (BEAKER) (test wfbi=527) 32.1 GM/DL 32.0- 36.0 RED CELL DISTRIBUTION WIDTH (BEAKER) (test cmhz=571) 21.1 % 10.3-14.2 PLATELET COUNT (BEAKER) (test qxrj=561) 239 K/CU MM 150-430 MEAN PLATELET VOLUME (BEAKER) (test cvmn=896) 9.7 fL 6.5-10.5 NUCLEATED RED BLOOD CELLS (BEAKER) (test czri=545) 0 /100 WBC 0-0 NEUTROPHILS RELATIVE PERCENT (BEAKER) (test rkxq=006) 89 % LYMPHOCYTES RELATIVE PERCENT (BEAKER) (test kufr=881) 4 % MONOCYTES RELATIVE PERCENT (BEAKER) (test iiov=235) 3 % EOSINOPHILS RELATIVE PERCENT (BEAKER) (test mvyw=480) 4 % BASOPHILS RELATIVE PERCENT (BEAKER) (test bkpq=603) 0 % NEUTROPHILS ABSOLUTE COUNT (BEAKER) (test usyz=605) 13.60 K/ L 1.80-8.00 LYMPHOCYTES ABSOLUTE COUNT (BEAKER) (test iuua=030) 0.64 K/ L 1.48-4.50 MONOCYTES ABSOLUTE COUNT (BEAKER) (test vcyc=712) 0.41 K/ L 0.00-1.30 EOSINOPHILS ABSOLUTE COUNT (BEAKER) (test gbrr=647) 0.57 K/ L 0.00-0.50 BASOPHILS ABSOLUTE COUNT (BEAKER) (test ebiu=836) 0.03 K/ L 0.00-0.20 0.000.500.000.000.000.00(MANUAL DIFFERENTIAL)2017-01-11 08:08:00* Test Item Value Reference Range Comments TOTAL COUNTED (BEAKER) (test relc=9445) WBC MORPHOLOGY (BEAKER) (test bbbd=632) Normal PLT MORPHOLOGY (BEAKER) (test raul=296) Normal BASOPHILIC STIPPLING (BEAKER) (test ebzx=809) Present POLYCHROMATOPHILLIC RBCS(BEAKER) (test ayaf=286) 1+ few COMPREHENSIVE METABOLIC [id number] 04:16:00* Test Item Value Reference Range Comments TOTAL PROTEIN (BEAKER) (test grgu=319) 5.2 gm/dL 6.0-8.3 ALBUMIN (BEAKER) (test fgyq=8548) 2.2 g/dL 3.5-5.0 ALKALINE PHOSPHATASE (BEAKER) (test rzfe=369) 247 U/L 40-150 BILIRUBIN TOTAL (BEAKER) (test xjuj=809) 14.4 mg/dL 0.2-1.2 SODIUM (BEAKER) (test ghjj=575) 141 meq/L 136-145 POTASSIUM (BEAKER) (test idjn=523) 4.5 meq/L 3.5-5.1 CHLORIDE (BEAKER) (test yqlu=045) 103 meq/L 98-107 CO2 (BEAKER) (test ffeq=850) 29 meq/L 22-29 BLOOD UREA NITROGEN (BEAKER) (test lgga=892) 35 mg/dL 7-21 CREATININE (BEAKER) (test oses=052) 3.73 mg/dL 0.57-1.25 GLUCOSE RANDOM (BEAKER) (test ecce=496) 102 mg/dL 70-105 CALCIUM (BEAKER) (test ekcc=981) 8.6 mg/dL 8.4-10.2 AST (SGOT) (BEAKER) (test tjjn=109) 76 U/L 5-34 ALT (SGPT) (BEAKER) (test rljb=250) 52 U/L 6-55 EGFR (BEAKER) (test lnlo=5516) 19 mL/min/1.73 sq m ESTIMATED GFR IS NOT ACCURATE CREATININE CLEARANCE IN PREDICTING GLOMERULAR FILTRATION RATE. ESTIMATED GFR IS NOT APPLICABLE FOR DIALYSIS PATIENTS. Specimen markedly [id number] 04:14:00* Test Item Value Reference Range Comments MAGNESIUM (BEAKER) (test aker=118) 1.8 mg/dL 1.6-2.6 HEPATIC FUNCTION [id number] 04:14:00* Test Item Value Reference Range Comments TOTAL PROTEIN (BEAKER) (test nfnq=769) 5.2 gm/dL 6.0-8.3 ALBUMIN (BEAKER) (test qmaq=8793) 2.2 g/dL 3.5-5.0 BILIRUBIN TOTAL (BEAKER) (test dkgt=693) 14.4 mg/dL 0.2-1.2 BILIRUBIN DIRECT (BEAKER) (test hyig=710) 11.3 mg/dL 0.1-0.5 ALKALINE PHOSPHATASE (BEAKER) (test qzqr=408) 247 U/L 40-150 AST (SGOT) (BEAKER) (test pvwt=685) 76 U/L 5-34 ALT (SGPT) (BEAKER) (test yqjx=379) 52 U/L 6-55 Specimen markedly ictericCALCIUM, [id number] 04:01:00* Test Item Value Reference Range Comments CALCIUM IONIZED (BEAKER) (test mstn=155) 1.15 mmol/L 1.12-1.27 PH, BLOOD (BEAKER) (test kokl=5194) 7.40 POCT-GLUCOSE [id number] 21:58:00* Test Item Value Reference Range Comments POC-GLUCOSE METER (BEAKER) (test srsw=8698) 108 mg/dL 70-110 TESTED AT [address] [address] POCT-GLUCOSE [id number] 16:41:00* Test Item Value Reference Range Comments POC-GLUCOSE METER (BEAKER) (test erfc=3422) 77 mg/dL 70-110 TESTED AT [address] [address] POCT-GLUCOSE [id number] 11:41:00* Test Item Value Reference Range Comments POC-GLUCOSE METER (BEAKER) (test qzpf=6665) 104 mg/dL 70-110 TESTED AT [address] [address] POCT-GLUCOSE [id number] 07:25:00* Test Item Value Reference Range Comments POC-GLUCOSE METER (BEAKER) (test uvnu=5715) 85 mg/dL 70-110 TESTED AT [address] [address] BASIC METABOLIC [id number] 04:18:00* Test Item Value Reference Range Comments SODIUM (BEAKER) (test aiim=577) 143 meq/L 136-145 POTASSIUM (BEAKER) (test eoya=564) 4.6 meq/L 3.5-5.1 CHLORIDE (BEAKER) (test fzlq=796) 107 meq/L 98-107 CO2 (BEAKER) (test nues=303) 22 meq/L 22-29 BLOOD UREA NITROGEN (BEAKER) (test pprn=819) 81 mg/dL 7-21 CREATININE (BEAKER) (test woqf=731) 5.97 mg/dL 0.57-1.25 GLUCOSE RANDOM (BEAKER) (test uxmc=963) 74 mg/dL 70-105 CALCIUM (BEAKER) (test lkji=574) 8.3 mg/dL 8.4-10.2 EGFR (BEAKER) (test pnkk=7385) 11 mL/min/1.73 sq m ESTIMATED GFR IS NOT ACCURATE CREATININE CLEARANCE IN PREDICTING GLOMERULAR FILTRATION RATE. ESTIMATED GFR IS NOT APPLICABLE FOR DIALYSIS PATIENTS. Specimen markedly ictericVANCOMYCIN LEVEL, [id number] 04:09:00* Test Item Value Reference Range Comments VANCOMYCIN RANDOM (BEAKER) (test ehxz=948) 20.5 ug/mL Reference Range: No [id number] 04:08:00* Test Item Value Reference Range Comments MAGNESIUM (BEAKER) (test rhyq=230) 1.9 mg/dL 1.6-2.6 HEPATIC FUNCTION [id number] 04:08:00* Test Item Value Reference Range Comments TOTAL PROTEIN (BEAKER) (test qfyj=648) 4.8 gm/dL 6.0-8.3 ALBUMIN (BEAKER) (test dtqo=2805) 2.1 g/dL 3.5-5.0 BILIRUBIN TOTAL (BEAKER) (test ctyt=764) 17.2 mg/dL 0.2-1.2 BILIRUBIN DIRECT (BEAKER) (test yjan=500) 13.3 mg/dL 0.1-0.5 ALKALINE PHOSPHATASE (BEAKER) (test wstc=952) 230 U/L 40-150 AST (SGOT) (BEAKER) (test mgrg=898) 82 U/L 5-34 ALT (SGPT) (BEAKER) (test lutp=356) 47 U/L 6-55 Specimen markedly ictericCALCIUM, [id number] 03:51:00* Test Item Value Reference Range Comments CALCIUM IONIZED (BEAKER) (test lwiq=788) 1.13 mmol/L 1.12-1.27 PH, BLOOD (BEAKER) (test nljn=1641) 7.38 CBC W/PLT COUNT & AUTO [id number] 03:51:00* Test Item Value Reference Range Comments WHITE BLOOD CELL COUNT (BEAKER) (test lzxi=646) 16.0 K/ L 4.0-10.0 RED BLOOD CELL COUNT (BEAKER) (test kzrz=556) 2.94 M/ L 4.20-5.80 HEMOGLOBIN (BEAKER) (test giqf=183) 9.0 GM/DL 13.0-16.8 HEMATOCRIT (BEAKER) (test xhga=478) 27.5 % 40.0-50.0 MEAN CORPUSCULAR VOLUME (BEAKER) (test sfka=306) 93.6 fL 82.0-98.0 MEAN CORPUSCULAR HEMOGLOBIN (BEAKER) (test cizl=422) 30.5 pg 27.0-33.0 MEAN CORPUSCULAR HEMOGLOBIN CONC (BEAKER) (test wipr=256) 32.6 GM/DL 32.0- 36.0 RED CELL DISTRIBUTION WIDTH (BEAKER) (test subn=900) 21.9 % 10.3-14.2 PLATELET COUNT (BEAKER) (test jecm=340) 243 K/CU MM 150-430 MEAN PLATELET VOLUME (BEAKER) (test xngb=895) 9.8 fL 6.5-10.5 NUCLEATED RED BLOOD CELLS (BEAKER) (test qltf=286) 0 /100 WBC 0-0 NEUTROPHILS RELATIVE PERCENT (BEAKER) (test ahci=577) 76 % LYMPHOCYTES RELATIVE PERCENT (BEAKER) (test hgkv=227) 7 % MONOCYTES RELATIVE PERCENT (BEAKER) (test poem=243) 11 % EOSINOPHILS RELATIVE PERCENT (BEAKER) (test mydm=445) 6 % BASOPHILS RELATIVE PERCENT (BEAKER) (test rzxe=156) 0 % NEUTROPHILS ABSOLUTE COUNT (BEAKER) (test pfrm=881) 12.20 K/ L 1.80-8.00 LYMPHOCYTES ABSOLUTE COUNT (BEAKER) (test twku=623) 1.07 K/ L 1.48-4.50 MONOCYTES ABSOLUTE COUNT (BEAKER) (test dgsi=343) 1.71 K/ L 0.00-1.30 EOSINOPHILS ABSOLUTE COUNT (BEAKER) (test zmtx=365) 0.96 K/ L 0.00-0.50 BASOPHILS ABSOLUTE COUNT (BEAKER) (test ngzm=636) 0.05 K/ L 0.00-0.20 0.000.700.000.000.000.00POCT-GLUCOSE [id number] 22:59:00* Test Item Value Reference Range Comments POC-GLUCOSE METER (BEAKER) (test rduc=8530) 82 mg/dL 70-110 TESTED AT [address] [address] POCT-GLUCOSE [id number] 17:35:00* Test Item Value Reference Range Comments POC-GLUCOSE METER (BEAKER) (test ibdr=0362) 75 mg/dL 70-110 TESTED AT [address] [address] POCT-GLUCOSE [id number] 12:13:00* Test Item Value Reference Range Comments POC-GLUCOSE METER (BEAKER) (test hsot=4484) 81 mg/dL 70-110 TESTED AT [address] [address] POCT-GLUCOSE [id number] 11:23:00* Test Item Value Reference Range Comments POC-GLUCOSE METER (BEAKER) (test izuc=8754) 73 mg/dL 70-110 TESTED AT [address] [address] CBC W/PLT COUNT & AUTO [id number] 07:47:00* Test Item Value Reference Range Comments WHITE BLOOD CELL COUNT (BEAKER) (test nkyg=805) 19.1 K/ L 4.0-10.0 RED BLOOD CELL COUNT (BEAKER) (test ramw=674) 3.21 M/ L 4.20-5.80 HEMOGLOBIN (BEAKER) (test iofh=081) 9.7 GM/DL 13.0-16.8 HEMATOCRIT (BEAKER) (test iuta=643) 30.1 % 40.0-50.0 MEAN CORPUSCULAR VOLUME (BEAKER) (test ecvw=236) 93.6 fL 82.0-98.0 MEAN CORPUSCULAR HEMOGLOBIN (BEAKER) (test ijvr=679) 30.1 pg 27.0-33.0 MEAN CORPUSCULAR HEMOGLOBIN CONC (BEAKER) (test nlim=054) 32.2 GM/DL 32.0- 36.0 RED CELL DISTRIBUTION WIDTH (BEAKER) (test nbtb=852) 22.5 % 10.3-14.2 PLATELET COUNT (BEAKER) (test vghv=703) 278 K/CU MM 150-430 MEAN PLATELET VOLUME (BEAKER) (test ncir=068) 9.8 fL 6.5-10.5 NUCLEATED RED BLOOD CELLS (BEAKER) (test vqpy=801) 0 /100 WBC 0-0 0.000.700.000.000.000.00(MANUAL DIFFERENTIAL)2017-01-09 07:47:00* Test Item Value Reference Range Comments NEUTROPHILS - REL (DIFF) (BEAKER) (test cuja=7169) 80 % LYMPHOCYTES - REL (DIFF) (BEAKER) (test ncqu=3104) 8 % MONOCYTES - REL (DIFF) (BEAKER) (test cahc=6726) 9 % EOSINOPHILS - REL (DIFF) (BEAKER) (test isdo=9904) 1 % MYELOCYTES-REL (DIFF) (BEAKER) (test oscs=1474) 1 % 0-0 BANDS - REL (DIFF) (BEAKER) (test tbhh=1494) 1 % 0-10 NEUTROPHILS - ABS (DIFF) (BEAKER) (test gtbk=1219) 15.28 K/ L 1.80-8.00 LYMPHOCYTES - ABS (DIFF) (BEAKER) (test nkww=1433) 1.53 K/ L 1.48-4.50 MONOCYTES - ABS (DIFF) (BEAKER) (test etmx=8589) 1.72 K/ L 0.00-1.30 EOSINOPHILS - ABS (DIFF) (BEAKER) (test xpzo=6119) 0.19 K/ L 0.00-0.50 BANDS-ABS (DIFF) (BEAKER) (test tqdw=7595) 0.2 K/ L 0.0-0.8 MYELOCYTES-ABS (DIFF) (BEAKER) (test qemg=3478) 0.19 K/ L 0.00-0.00 TOTAL COUNTED (BEAKER) (test pcjw=4522) 100 BANDS + SEGMENTED NEUTROPHILS (BEAKER) (test npqe=5947) 15.47 WBC MORPHOLOGY (BEAKER) (test gocg=548) Normal LARGE PLT(BEAKER) (test dhkq=4547) Present POLYCHROMATOPHILLIC RBCS(BEAKER) (test qxui=361) 1+ few TARGET CELLS (BEAKER) (test kkmv=553) 1+ few POCT-GLUCOSE [id number] 05:24:00* Test Item Value Reference Range Comments POC-GLUCOSE METER (BEAKER) (test ujmg=6270) 74 mg/dL 70-[address] [facility] [address] [facility] [address] CALCIUM, [id number] 05:09:00* Test Item Value Reference Range Comments CALCIUM IONIZED (BEAKER) (test fsob=611) 1.02 mmol/L 1.12-1.27 PH, BLOOD (BEAKER) (test fbce=0576) 7.37 HEPATIC FUNCTION [id number] 05:02:00* Test Item Value Reference Range Comments TOTAL PROTEIN (BEAKER) (test cexy=309) 4.9 gm/dL 6.0-8.3 ALBUMIN (BEAKER) (test jqbt=7440) 2.1 g/dL 3.5-5.0 BILIRUBIN TOTAL (BEAKER) (test iikz=143) 19.4 mg/dL 0.2-1.2 BILIRUBIN DIRECT (BEAKER) (test btgq=669) 14.8 mg/dL 0.1-0.5 ALKALINE PHOSPHATASE (BEAKER) (test zmhs=265) 197 U/L 40-150 AST (SGOT) (BEAKER) (test zily=658) 66 U/L 5-34 ALT (SGPT) (BEAKER) (test skdg=850) 37 U/L 6-55 Specimen markedly ictericBASIC METABOLIC [id number] 05:02:00* Test Item Value Reference Range Comments SODIUM (BEAKER) (test hqkx=134) 141 meq/L 136-145 POTASSIUM (BEAKER) (test eyhw=629) 4.1 meq/L 3.5-5.1 CHLORIDE (BEAKER) (test cwac=518) 104 meq/L 98-107 CO2 (BEAKER) (test fukc=019) 25 meq/L 22-29 BLOOD UREA NITROGEN (BEAKER) (test zpgr=775) 65 mg/dL 7-21 CREATININE (BEAKER) (test zrjr=278) 4.48 mg/dL 0.57-1.25 GLUCOSE RANDOM (BEAKER) (test hsfd=038) 73 mg/dL 70-105 CALCIUM (BEAKER) (test ddgj=745) 8.1 mg/dL 8.4-10.2 EGFR (BEAKER) (test deob=6110) 15 mL/min/1.73 sq m ESTIMATED GFR IS NOT ACCURATE CREATININE CLEARANCE IN PREDICTING GLOMERULAR FILTRATION RATE. ESTIMATED GFR IS NOT APPLICABLE FOR DIALYSIS PATIENTS. Specimen markedly [id number] 04:53:00* Test Item Value Reference Range Comments MAGNESIUM (BEAKER) (test sjwu=116) 1.6 mg/dL 1.6-2.6 [id number] 04:45:00* Test Item Value Reference Range Comments PROTIME (BEAKER) (test jmej=789) 16.7 seconds 11.7-14.7 INR (BEAKER) (test yshy=109) 1.4 <=5.9 PARTIAL THROMBOPLASTIN TIME (BEAKER) (test pjja=215) 36.0 seconds 22.5-36.0 RECOMMENDED COUMADIN/WARFARIN INR THERAPY RANGESSTANDARD DOSE: 2.0 - 3.0 Includes: PROPHYLAXIS for venous thrombosis, systemic embolization; TREATMENT for venous thrombosis and/or pulmonary embolus.HIGH RISK: Target INR is 2.5-3.5 for patients with mechanical heart valves.POCT-GLUCOSE [id number] 01:08:00 * Test Item Value Reference Range Comments POC-GLUCOSE METER (BEAKER) (test etgk=7789) 84 mg/dL 70-110 TESTED AT [place] [id number] BLOOD [id number] 18:00:00* Test Item Value Reference Range Comments CULTURE (BEAKER) (test vste=6846) No growth in 5 days POCT-GLUCOSE [id number] 17:52:00* Test Item Value Reference Range Comments POC-GLUCOSE METER (BEAKER) (test debx=1696) 102 mg/dL 70-110 TESTED AT [address] [address] POCT-GLUCOSE [id number] 11:51:00* Test Item Value Reference Range Comments POC-GLUCOSE METER (BEAKER) (test ycta=3640) 116 mg/dL 70-110 TESTED AT [address] [address] BLOOD [id number] 11:00:00* Test Item Value Reference Range Comments CULTURE (BEAKER) (test htub=1445) No growth in 5 days CBC W/PLT COUNT & AUTO [id number] 09:54:00* Test Item Value Reference Range Comments WHITE BLOOD CELL COUNT (BEAKER) (test sbne=751) 19.3 K/ L 4.0-10.0 RED BLOOD CELL COUNT (BEAKER) (test ixob=667) 3.19 M/ L 4.20-5.80 HEMOGLOBIN (BEAKER) (test jjin=531) 9.5 GM/DL 13.0-16.8 HEMATOCRIT (BEAKER) (test alzm=915) 30.2 % 40.0-50.0 MEAN CORPUSCULAR VOLUME (BEAKER) (test zxfk=701) 94.6 fL 82.0-98.0 MEAN CORPUSCULAR HEMOGLOBIN (BEAKER) (test apet=761) 29.7 pg 27.0-33.0 MEAN CORPUSCULAR HEMOGLOBIN CONC (BEAKER) (test ficu=365) 31.4 GM/DL 32.0- 36.0 RED CELL DISTRIBUTION WIDTH (BEAKER) (test eyvk=559) 22.8 % 10.3-14.2 PLATELET COUNT (BEAKER) (test serx=835) 249 K/CU MM 150-430 MEAN PLATELET VOLUME (BEAKER) (test eokw=849) 10.5 fL 6.5-10.5 NUCLEATED RED BLOOD CELLS (BEAKER) (test mgja=108) 0 /100 WBC 0-0 NEUTROPHILS RELATIVE PERCENT (BEAKER) (test jswi=880) 77 % LYMPHOCYTES RELATIVE PERCENT (BEAKER) (test vjov=655) 5 % MONOCYTES RELATIVE PERCENT (BEAKER) (test teqz=011) 13 % EOSINOPHILS RELATIVE PERCENT (BEAKER) (test ctmo=972) 5 % BASOPHILS RELATIVE PERCENT (BEAKER) (test jafb=279) 0 % NEUTROPHILS ABSOLUTE COUNT (BEAKER) (test ugkn=042) 14.80 K/ L 1.80-8.00 LYMPHOCYTES ABSOLUTE COUNT (BEAKER) (test hnbz=097) 1.06 K/ L 1.48-4.50 MONOCYTES ABSOLUTE COUNT (BEAKER) (test tlal=179) 2.41 K/ L 0.00-1.30 EOSINOPHILS ABSOLUTE COUNT (BEAKER) (test ozwf=280) 0.98 K/ L 0.00-0.50 BASOPHILS ABSOLUTE COUNT (BEAKER) (test ooqe=438) 0.06 K/ L 0.00-0.20 0.000.700.000.000.000.00(MANUAL DIFFERENTIAL)2017-01-08 09:54:00* Test Item Value Reference Range Comments TOTAL COUNTED (BEAKER) (test nuft=1318) WBC MORPHOLOGY (BEAKER) (test ogbn=186) Normal LARGE PLT(BEAKER) (test rlow=9728) Present POLYCHROMATOPHILLIC RBCS(BEAKER) (test yqwk=742) 1+ few TARGET CELLS (BEAKER) (test wvbq=925) 1+ few POCT-GLUCOSE [id number] 07:02:00* Test Item Value Reference Range Comments POC-GLUCOSE METER (BEAKER) (test vtez=4768) 102 mg/dL 70-[address] [facility] [address] [facility] [address] HEPATIC FUNCTION [id number] 06:27:00* Test Item Value Reference Range Comments TOTAL PROTEIN (BEAKER) (test xend=209) 5.0 gm/dL 6.0-8.3 ALBUMIN (BEAKER) (test ybky=0287) 2.2 g/dL 3.5-5.0 BILIRUBIN TOTAL (BEAKER) (test wwhx=876) 20.7 mg/dL 0.2-1.2 BILIRUBIN DIRECT (BEAKER) (test jovl=644) 17.8 mg/dL 0.1-0.5 ALKALINE PHOSPHATASE (BEAKER) (test qffx=368) 185 U/L 40-150 AST (SGOT) (BEAKER) (test moxm=071) 60 U/L 5-34 ALT (SGPT) (BEAKER) (test mpfh=018) 35 U/L 6-55 Specimen markedly ictericBASIC METABOLIC [id number] 06:26:00* Test Item Value Reference Range Comments SODIUM (BEAKER) (test jhpv=791) 143 meq/L 136-145 POTASSIUM (BEAKER) (test fsxv=891) 3.6 meq/L 3.5-5.1 CHLORIDE (BEAKER) (test idpt=247) 104 meq/L 98-107 CO2 (BEAKER) (test eand=947) 29 meq/L 22-29 BLOOD UREA NITROGEN (BEAKER) (test qztk=974) 39 mg/dL 7-21 CREATININE (BEAKER) (test yxzl=791) 3.08 mg/dL 0.57-1.25 GLUCOSE RANDOM (BEAKER) (test izzk=672) 99 mg/dL 70-105 CALCIUM (BEAKER) (test bvke=454) 8.5 mg/dL 8.4-10.2 EGFR (BEAKER) (test rpbu=7134) 23 mL/min/1.73 sq m ESTIMATED GFR IS NOT ACCURATE CREATININE CLEARANCE IN PREDICTING GLOMERULAR FILTRATION RATE. ESTIMATED GFR IS NOT APPLICABLE FOR DIALYSIS PATIENTS. Specimen markedly ictericCALCIUM, [id number] 06:25:00* Test Item Value Reference Range Comments CALCIUM IONIZED (BEAKER) (test yuul=375) 1.04 mmol/L 1.12-1.27 PH, BLOOD (BEAKER) (test nlbj=6954) 7.41 [id number] 06:21:00* Test Item Value Reference Range Comments MAGNESIUM (BEAKER) (test ctzi=265) 1.7 mg/dL 1.6-2.6 VANCOMYCIN LEVEL, [id number] 06:15:00* Test Item Value Reference Range Comments VANCOMYCIN RANDOM (BEAKER) (test snna=718) 14.9 ug/mL Reference Range: No NormalsBLOOD [id number] 06:00:00* Test Item Value Reference Range Comments CULTURE (BEAKER) (test pqxk=8332) No growth in 5 days [id number] 05:44:00* Test Item Value Reference Range Comments PROTIME (BEAKER) (test igsm=460) 17.4 seconds 11.7-14.7 INR (BEAKER) (test oqqp=548) 1.4 <=5.9 PARTIAL THROMBOPLASTIN TIME (BEAKER) (test byda=329) 36.2 seconds 22.5-36.0 RECOMMENDED COUMADIN/WARFARIN INR THERAPY RANGESSTANDARD DOSE: 2.0 - 3.0 Includes: PROPHYLAXIS for venous thrombosis, systemic embolization; TREATMENT for venous thrombosis and/or pulmonary embolus.HIGH RISK: Target INR is 2.5-3.5 for patients with mechanical heart valves.POCT-GLUCOSE [id number] 01:48:00 * Test Item Value Reference Range Comments POC-GLUCOSE METER (BEAKER) (test skyd=9187) 100 mg/dL 70-[address] [facility] [address] [facility] [address] POCT-GLUCOSE [id number] 17:19:00* Test Item Value Reference Range Comments POC-GLUCOSE METER (BEAKER) (test qopm=0345) 117 mg/dL 70-[address] [facility] [address] [facility] [address] [id number] 13:15:00* Test Item Value Reference Range Comments AMMONIA (BEAKER) (test ijch=345) 34 mol/L 18-72 CBC W/PLT COUNT & AUTO [id number] 12:18:00* Test Item Value Reference Range Comments WHITE BLOOD CELL COUNT (BEAKER) (test pdcw=691) 20.5 K/ L 4.0-10.0 RED BLOOD CELL COUNT (BEAKER) (test dqoo=067) 3.16 M/ L 4.20-5.80 HEMOGLOBIN (BEAKER) (test tihy=776) 9.5 GM/DL 13.0-16.8 HEMATOCRIT (BEAKER) (test flnx=242) 30.0 % 40.0-50.0 MEAN CORPUSCULAR VOLUME (BEAKER) (test wpkh=254) 95.0 fL 82.0-98.0 MEAN CORPUSCULAR HEMOGLOBIN (BEAKER) (test psnm=748) 30.0 pg 27.0-33.0 MEAN CORPUSCULAR HEMOGLOBIN CONC (BEAKER) (test xjnr=774) 31.6 GM/DL 32.0- 36.0 RED CELL DISTRIBUTION WIDTH (BEAKER) (test zhiq=524) 22.9 % 10.3-14.2 PLATELET COUNT (BEAKER) (test ypby=727) 234 K/CU MM 150-430 MEAN PLATELET VOLUME (BEAKER) (test iswk=961) 10.6 fL 6.5-10.5 NUCLEATED RED BLOOD CELLS (BEAKER) (test jycg=958) 0 /100 WBC 0-0 NEUTROPHILS RELATIVE PERCENT (BEAKER) (test zxrc=524) 80 % LYMPHOCYTES RELATIVE PERCENT (BEAKER) (test atqf=707) 4 % MONOCYTES RELATIVE PERCENT (BEAKER) (test tqcx=992) 13 % EOSINOPHILS RELATIVE PERCENT (BEAKER) (test atqx=614) 2 % BASOPHILS RELATIVE PERCENT (BEAKER) (test ctaw=989) 0 % NEUTROPHILS ABSOLUTE COUNT (BEAKER) (test zjbk=637) 16.50 K/ L 1.80-8.00 LYMPHOCYTES ABSOLUTE COUNT (BEAKER) (test lzkd=816) 0.86 K/ L 1.48-4.50 MONOCYTES ABSOLUTE COUNT (BEAKER) (test rbmf=146) 2.64 K/ L 0.00-1.30 EOSINOPHILS ABSOLUTE COUNT (BEAKER) (test loln=495) 0.50 K/ L 0.00-0.50 BASOPHILS ABSOLUTE COUNT (BEAKER) (test nzcp=931) 0.02 K/ L 0.00-0.20 0.000.530.000.000.560.000.000.000.00(MANUAL DIFFERENTIAL)2017-01-07 12:18:00* Test Item Value Reference Range Comments TOTAL COUNTED (BEAKER) (test myoz=8971) WBC MORPHOLOGY (BEAKER) (test sndq=099) Normal LARGE PLT(BEAKER) (test hvuc=7077) Present SCHISTOCYTES (BEAKER) (test owpx=367) 1+ few ACANTHOCYTES (BEAKER) (test sriv=893) 1+ few ANISOCYTOSIS (BEAKER) (test yagq=086) 2+ moderate HYPOCHROMIA (BEAKER) (test mwfp=987) 1+ few MACROCYTES (BEAKER) (test jzjv=585) 2+ moderate MICROCYTES (BEAKER) (test kzrr=824) 1+ few OVALOCYTES (BEAKER) (test zbhf=444) 1+ few POIKILOCYTES (BEAKER) (test hfre=626) 1+ few TARGET CELLS (BEAKER) (test gkqk=375) 1+ few POCT-GLUCOSE [id number] 12:12:00* Test Item Value Reference Range Comments POC-GLUCOSE METER (BEAKER) (test cecw=2485) 147 mg/dL 70-[address] [facility] [address] [facility] [address] BLOOD [id number] 11:00:00* Test Item Value Reference Range Comments CULTURE (BEAKER) (test vzvj=2477) No growth in 5 days BLOOD [id number] 11:00:00* Test Item Value Reference Range Comments CULTURE (BEAKER) (test camq=1430) No growth in 5 days [id number] 09:25:00* Test Item Value Reference Range Comments PROTIME (BEAKER) (test vgof=923) 19.1 seconds 11.7-14.7 INR (BEAKER) (test azww=360) 1.6 <=5.9 PARTIAL THROMBOPLASTIN TIME (BEAKER) (test eniz=596) 35.8 seconds 22.5-36.0 RECOMMENDED COUMADIN/WARFARIN INR THERAPY RANGESSTANDARD DOSE: 2.0 - 3.0 Includes: PROPHYLAXIS for venous thrombosis, systemic embolization; TREATMENT for venous thrombosis and/or pulmonary embolus.HIGH RISK: Target INR is 2.5-3.5 for patients with mechanical heart valves.BASIC METABOLIC [id number] 06:33: 00* Test Item Value Reference Range Comments SODIUM (BEAKER) (test vneu=950) 144 meq/L 136-145 POTASSIUM (BEAKER) (test qljy=116) 3.7 meq/L 3.5-5.1 CHLORIDE (BEAKER) (test odtn=961) 105 meq/L 98-107 CO2 (BEAKER) (test mdvk=900) 27 meq/L 22-29 BLOOD UREA NITROGEN (BEAKER) (test vqxz=719) 61 mg/dL 7-21 CREATININE (BEAKER) (test opva=180) 4.33 mg/dL 0.57-1.25 GLUCOSE RANDOM (BEAKER) (test qdrp=712) 100 mg/dL 70-105 CALCIUM (BEAKER) (test lbbr=842) 8.1 mg/dL 8.4-10.2 EGFR (BEAKER) (test wupk=9568) 16 mL/min/1.73 sq m ESTIMATED GFR IS NOT ACCURATE CREATININE CLEARANCE IN PREDICTING GLOMERULAR FILTRATION RATE. ESTIMATED GFR IS NOT APPLICABLE FOR DIALYSIS PATIENTS. Specimen markedly ictericHEPATIC FUNCTION [id number] 06:33:00* Test Item Value Reference Range Comments TOTAL PROTEIN (BEAKER) (test uanh=016) 4.7 gm/dL 6.0-8.3 ALBUMIN (BEAKER) (test wqxn=7697) 2.1 g/dL 3.5-5.0 BILIRUBIN TOTAL (BEAKER) (test lpcj=803) 22.8 mg/dL 0.2-1.2 BILIRUBIN DIRECT (BEAKER) (test ajce=856) 19.2 mg/dL 0.1-0.5 ALKALINE PHOSPHATASE (BEAKER) (test emef=082) 170 U/L 40-150 AST (SGOT) (BEAKER) (test bkbd=937) 56 U/L 5-34 ALT (SGPT) (BEAKER) (test zuqo=945) 31 U/L 6-55 Specimen markedly [id number] 06:29:00* Test Item Value Reference Range Comments MAGNESIUM (BEAKER) (test ksfq=947) 1.7 mg/dL 1.6-2.6 VANCOMYCIN LEVEL, [id number] 06:16:00* Test Item Value Reference Range Comments VANCOMYCIN RANDOM (BEAKER) (test xsfx=376) 23.3 ug/mL Reference Range: No NormalsCALCIUM, [id number] 04:47:00* Test Item Value Reference Range Comments CALCIUM IONIZED (BEAKER) (test ahjt=484) 1.12 mmol/L 1.12-1.27 PH, BLOOD (BEAKER) (test hotc=1179) 7.36 POCT-GLUCOSE [id number] 18:08:00* Test Item Value Reference Range Comments POC-GLUCOSE METER (BEAKER) (test kgbm=3533) 127 mg/dL 70-110 TESTED AT [place] [address] BLOOD [id number] 18:00:00* Test Item Value Reference Range Comments CULTURE (BEAKER) (test heow=6784) No growth in 5 days BLOOD [id number] 18:00:00* Test Item Value Reference Range Comments CULTURE (BEAKER) (test sosu=1738) No growth in 5 days POCT-GLUCOSE [id number] 11:58:00* Test Item Value Reference Range Comments POC-GLUCOSE METER (AKER) (test sozj=2913) 113 mg/dL 70-110 TESTED AT [place] [id number] CBC W/PLT COUNT & AUTO [id number] 11:22:00* Test Item Value Reference Range Comments WHITE BLOOD CELL COUNT (BEAKER) (test fpwr=013) 19.0 K/ L 4.0-10.0 RED BLOOD CELL COUNT (BEAKER) (test drww=912) 3.23 M/ L 4.20-5.80 HEMOGLOBIN (BEAKER) (test tfze=924) 9.9 GM/DL 13.0-16.8 HEMATOCRIT (BEAKER) (test qvfl=762) 30.5 % 40.0-50.0 MEAN CORPUSCULAR VOLUME (BEAKER) (test evbq=774) 94.6 fL 82.0-98.0 MEAN CORPUSCULAR HEMOGLOBIN (BEAKER) (test fhla=789) 30.6 pg 27.0-33.0 MEAN CORPUSCULAR HEMOGLOBIN CONC (BEAKER) (test pfgz=104) 32.4 GM/DL 32.0- 36.0 RED CELL DISTRIBUTION WIDTH (BEAKER) (test bynm=444) 24.0 % 10.3-14.2 PLATELET COUNT (BEAKER) (test tsnv=871) 238 K/CU MM 150-430 MEAN PLATELET VOLUME (BEAKER) (test kbiz=027) 10.4 fL 6.5-10.5 NUCLEATED RED BLOOD CELLS (BEAKER) (test pjlw=153) 0 /100 WBC 0-0 NEUTROPHILS RELATIVE PERCENT (BEAKER) (test mdzz=529) 81 % LYMPHOCYTES RELATIVE PERCENT (BEAKER) (test axgb=010) 4 % MONOCYTES RELATIVE PERCENT (BEAKER) (test zddg=748) 12 % EOSINOPHILS RELATIVE PERCENT (BEAKER) (test puzd=365) 2 % BASOPHILS RELATIVE PERCENT (BEAKER) (test vwng=552) 0 % NEUTROPHILS ABSOLUTE COUNT (BEAKER) (test idmc=690) 15.50 K/ L 1.80-8.00 LYMPHOCYTES ABSOLUTE COUNT (BEAKER) (test drkv=696) 0.84 K/ L 1.48-4.50 MONOCYTES ABSOLUTE COUNT (BEAKER) (test lluc=577) 2.32 K/ L 0.00-1.30 EOSINOPHILS ABSOLUTE COUNT (BEAKER) (test ebxy=770) 0.40 K/ L 0.00-0.50 BASOPHILS ABSOLUTE COUNT (BEAKER) (test nflv=455) 0.02 K/ L 0.00-0.20 0.000.520.000.000.500.000.000.000.00(MANUAL DIFFERENTIAL)2017-01-06 11:22:00* Test Item Value Reference Range Comments TOTAL COUNTED (BEAKER) (test dsmi=3198) WBC MORPHOLOGY (BEAKER) (test hnpo=507) Normal PLT MORPHOLOGY (BEAKER) (test zntj=200) Normal ANISOCYTOSIS (BEAKER) (test fytn=191) 2+ moderate POLYCHROMATOPHILLIC RBCS(BEAKER) (test nzwy=238) 2+ moderate [id number] 09:33:00* Test Item Value Reference Range Comments PROTIME (BEAKER) (test xgmx=880) 20.2 seconds 11.7-14.7 INR (BEAKER) (test pari=477) 1.7 <=5.9 PARTIAL THROMBOPLASTIN TIME (BEAKER) (test dkik=567) 38.3 seconds 22.5-36.0 RECOMMENDED COUMADIN/WARFARIN INR THERAPY RANGESSTANDARD DOSE: 2.0 - 3.0 Includes: PROPHYLAXIS for venous thrombosis, systemic embolization; TREATMENT for venous thrombosis and/or pulmonary embolus.HIGH RISK: Target INR is 2.5-3.5 for patients with mechanical heart valves.PROTHROMBIN TIME/[id number] 09:32: 00* Test Item Value Reference Range Comments PROTIME (BEAKER) (test cyev=437) 20.2 seconds 11.7-14.7 INR (BEAKER) (test oush=975) 1.7 <=5.9 RECOMMENDED COUMADIN/WARFARIN INR THERAPY RANGESSTANDARD DOSE: 2.0 - 3.0 Includes: PROPHYLAXIS for venous thrombosis, systemic embolization; TREATMENT for venous thrombosis and/or pulmonary embolus.HIGH RISK: Target INR is 2.5-3.5 for patients with mechanical heart valves.HEPATIC FUNCTION [id number] 04:43 :00* Test Item Value Reference Range Comments TOTAL PROTEIN (BEAKER) (test pgqa=349) 4.9 gm/dL 6.0-8.3 Specimen slightly hemolyzed ALBUMIN (BEAKER) (test biyf=4722) 2.1 g/dL 3.5-5.0 Specimen slightly hemolyzed BILIRUBIN TOTAL (BEAKER) (test dxsd=953) 23.6 mg/dL 0.2-1.2 Specimen slightly hemolyzed BILIRUBIN DIRECT (BEAKER) (test xykk=701) 18.3 mg/dL 0.1-0.5 Specimen slightly hemolyzed ALKALINE PHOSPHATASE (BEAKER) (test cgar=185) 163 U/L 40-150 AST (SGOT) (BEAKER) (test zyog=775) 62 U/L 5-34 Specimen slightly hemolyzed ALT (SGPT) (BEAKER) (test mxtl=038) 29 U/L 6-55 Specimen slightly hemolyzed Specimen markedly ictericBASIC METABOLIC [id number] 04:43:00* Test Item Value Reference Range Comments SODIUM (BEAKER) (test borc=344) 143 meq/L 136-145 POTASSIUM (BEAKER) (test tbxp=954) 3.8 meq/L 3.5-5.1 Specimen slightly hemolyzed CHLORIDE (BEAKER) (test wrhd=033) 105 meq/L 98-107 CO2 (BEAKER) (test hoqf=130) 27 meq/L 22-29 BLOOD UREA NITROGEN (BEAKER) (test zpji=891) 36 mg/dL 7-21 CREATININE (BEAKER) (test aitn=806) 2.69 mg/dL 0.57-1.25 Specimen slightly hemolyzed GLUCOSE RANDOM (BEAKER) (test tbrf=437) 101 mg/dL 70-105 CALCIUM (BEAKER) (test czzp=388) 8.1 mg/dL 8.4-10.2 EGFR (BEAKER) (test vtfj=7324) 27 mL/min/1.73 sq m ESTIMATED GFR IS NOT ACCURATE CREATININE CLEARANCE IN PREDICTING GLOMERULAR FILTRATION RATE. ESTIMATED GFR IS NOT APPLICABLE FOR DIALYSIS PATIENTS. Specimen markedly [id number] 04:34:00* Test Item Value Reference Range Comments MAGNESIUM (BEAKER) (test adtf=162) 1.9 mg/dL 1.6-2.6 Specimen slightly hemolyzed VANCOMYCIN LEVEL, [id number] 04:24:00* Test Item Value Reference Range Comments VANCOMYCIN RANDOM (BEAKER) (test zyrh=388) 17.7 ug/mL Reference Range: No NormalsCALCIUM, [id number] 03:54:00* Test Item Value Reference Range Comments CALCIUM IONIZED (BEAKER) (test durj=313) 1.14 mmol/L 1.12-1.27 PH, BLOOD (BEAKER) (test zaod=5400) 7.44 POCT-GLUCOSE [id number] 00:45:00* Test Item Value Reference Range Comments POC-GLUCOSE METER (BEAKER) (test gnvu=5954) 106 mg/dL 70-[address] [facility] [address] [facility] [address] POCT-GLUCOSE [id number] 18:34:00* Test Item Value Reference Range Comments POC-GLUCOSE METER (BEAKER) (test mxaz=8174) 102 mg/dL 70-[address] [facility] [address] [facility] [address] BLOOD [id number] 12:46:00* Test Item Value Reference Range Comments CULTURE (BEAKER) (test wplo=5780) METHICILLIN RESISTANT STAPHYLOCOCCUS AUREUS From Anaerobic Bottle Only Methicillin resistant Staphylococcus aureus Ceftaroline (test quzt=226) Clindamycin (test code=10) Daptomycin (test code=59) Erythromycin (test code=4) Linezolid (test code=40) Oxacillin (test code=14) Rifampin (test code=43) Tetracycline (test code=2) Trimethoprim + Sulfamethoxazole (test code=47) Vancomycin (test code=13) Ampicillin (test code=26) Ciprofloxacin (test code=7) Clindamycin (test code=10) Daptomycin (test code=59) Erythromycin (test code=4) Gentamicin (test code=18) Gentamicin High Level Synergy (test kguo=935) Levofloxacin (test code=22) Linezolid (test code=40) Moxifloxacin (test code=36) Nitrofurantoin (test code=23) Oxacillin (test code=14) Rifampin (test code=43) Streptomycin High Level Synergy (test wmyw=974) Tetracycline (test code=2) Tigecycline (test jdfl=799) Trimethoprim + Sulfamethoxazole (test code=47) Vancomycin (test code=13) GRAM STAIN RESULT (BEAKER) (test svrl=5097) From anaerobic bottle only: gram positive cocci in clusters Amikacin (test code=1) Amoxicillin + Clavulanate (test code=21) Ampicillin + Sulbactam (test code=6) Azithromycin (test code=12) Aztreonam (test code=32) Cefazolin (test code=9) Cefepime (test code=51) Cefotaxime (test code=8) Cefotetan (test code=46) Cefoxitin (test code=68) Ceftazidime (test code=27) Ceftriaxone (test code=52) Cefuroxime (test code=16) Cephalothin (test code=48) Chloramphenicol (test code=44) Clarithromycin (test code=42) Colistimethate (test code=96) Doripenem (test kpzu=766) Ertapenem (test code=38) Fosfomycin (test ztpj=297) Gatifloxacin (test code=76) Imipenem (test code=19) Meropenem (test code=34) Metronidazole (test code=56) Minocycline (test code=35) Nalidixic Acid (test code=49) Norfloxacin (test code=50) Penicillin G (test code=3) Piperacillin + Tazobactam (test code=29) Piperacillin (test code=24) Polymyxin B (test vnwl=109) Quinupristin + Dalfopristin (test code=41) Ticarcillin (test code=11) Ticarcillin + Clavulanic Acid (test code=80) Tobramycin (test code=25) Ampicillin (test qcaw=880) Ciprofloxacin (test code=71) Gentamicin (test mafk=331) Levofloxacin (test kmgo=803) Moxifloxacin (test jymn=133) Nitrofurantoin (test zhvb=692) Tigecycline (test eyxs=1819) POCT-GLUCOSE [id number] 12:38:00* Test Item Value Reference Range Comments POC-GLUCOSE METER (BEAKER) (test ogiy=5585) 122 mg/dL 70-[address] [facility] [address] [facility] [address] CLOSTRIDIUM DIFFICILE TOXIN [id number] 12:00:00* Test Item Value Reference Range Comments CLOSTRIDIUM DIFFICILE TOXIN, PCR (BEAKER) (test dzst=8519) Not Detected Not Detected This qualitative real-time polymerase chain reaction assay detects the tcdB gene , encoded on the C.difficile pathogenicity locus (PaLoc). The product of tcdB, toxin B, is a cytotoxin essential for causing C.difficile-associated disease ( CDAD) and is found in virtually all toxigenic C.difficile.This assay is performed for patients suspected of having either community-acquired or nosocomial CDAD. Accordingly, only symptomatic patients should be tested and formed stools will be rejected unless ileus is present (i.e., specified when ordering). Patients may be colonized with toxigenic C.difficile strains not causing active disease; therefore, clinical correlation is needed when deciding how to manage patients with a positive test result.The assay has not been validated as a test of cure as amplifiable nucleic acid may persist after effective treatment; therefore, follow-up testing of a positive result is not recommended.CBC W/PLT COUNT & AUTO [id number] 08:00:00* Test Item Value Reference Range Comments WHITE BLOOD CELL COUNT (BEAKER) (test akbh=684) 18.2 K/ L 4.0-10.0 RED BLOOD CELL COUNT (BEAKER) (test ljjv=457) 3.08 M/ L 4.20-5.80 HEMOGLOBIN (BEAKER) (test vfrv=022) 9.3 GM/DL 13.0-16.8 HEMATOCRIT (BEAKER) (test fenz=065) 29.3 % 40.0-50.0 MEAN CORPUSCULAR VOLUME (BEAKER) (test tncd=127) 94.9 fL 82.0-98.0 MEAN CORPUSCULAR HEMOGLOBIN (BEAKER) (test ukjn=323) 30.2 pg 27.0-33.0 MEAN CORPUSCULAR HEMOGLOBIN CONC (BEAKER) (test znfl=885) 31.9 GM/DL 32.0- 36.0 RED CELL DISTRIBUTION WIDTH (BEAKER) (test ntqu=374) 24.9 % 10.3-14.2 PLATELET COUNT (BEAKER) (test fkue=174) 234 K/CU MM 150-430 MEAN PLATELET VOLUME (BEAKER) (test wbbh=113) 10.7 fL 6.5-10.5 NUCLEATED RED BLOOD CELLS (BEAKER) (test ffye=007) 0 /100 WBC 0-0 NEUTROPHILS RELATIVE PERCENT (BEAKER) (test gtah=540) 86 % LYMPHOCYTES RELATIVE PERCENT (BEAKER) (test srml=751) 3 % MONOCYTES RELATIVE PERCENT (BEAKER) (test advv=274) 11 % EOSINOPHILS RELATIVE PERCENT (BEAKER) (test kgez=249) 0 % BASOPHILS RELATIVE PERCENT (BEAKER) (test hkbg=360) 0 % NEUTROPHILS ABSOLUTE COUNT (BEAKER) (test dsnm=096) 15.60 K/ L 1.80-8.00 LYMPHOCYTES ABSOLUTE COUNT (BEAKER) (test uagh=482) 0.52 K/ L 1.48-4.50 MONOCYTES ABSOLUTE COUNT (BEAKER) (test fwnx=518) 1.97 K/ L 0.00-1.30 EOSINOPHILS ABSOLUTE COUNT (BEAKER) (test axnd=333) 0.07 K/ L 0.00-0.50 BASOPHILS ABSOLUTE COUNT (BEAKER) (test jhmq=115) 0.01 K/ L 0.00-0.20 0.000.530.510.000.000.000.000.000.00(MANUAL DIFFERENTIAL)2017-01-05 08:00:00* Test Item Value Reference Range Comments TOTAL COUNTED (BEAKER) (test jtbc=5975) WBC MORPHOLOGY (BEAKER) (test wdsk=453) Normal PLT MORPHOLOGY (BEAKER) (test tgge=038) Normal POLYCHROMATOPHILLIC RBCS(BEAKER) (test mjpp=314) 2+ moderate BASIC METABOLIC [id number] 05:18:00* Test Item Value Reference Range Comments SODIUM (BEAKER) (test qkoa=048) 140 meq/L 136-145 POTASSIUM (BEAKER) (test cmkn=525) 4.0 meq/L 3.5-5.1 CHLORIDE (BEAKER) (test lcal=534) 105 meq/L 98-107 CO2 (BEAKER) (test pyha=462) 26 meq/L 22-29 BLOOD UREA NITROGEN (BEAKER) (test pvwd=391) 40 mg/dL 7-21 CREATININE (BEAKER) (test zwal=912) 3.02 mg/dL 0.57-1.25 GLUCOSE RANDOM (BEAKER) (test svoa=615) 118 mg/dL 70-105 CALCIUM (BEAKER) (test nkgy=096) 8.0 mg/dL 8.4-10.2 EGFR (BEAKER) (test vqzx=8212) 24 mL/min/1.73 sq m ESTIMATED GFR IS NOT ACCURATE CREATININE CLEARANCE IN PREDICTING GLOMERULAR FILTRATION RATE. ESTIMATED GFR IS NOT APPLICABLE FOR DIALYSIS PATIENTS. Specimen markedly ictericHEPATIC FUNCTION [id number] 05:18:00* Test Item Value Reference Range Comments TOTAL PROTEIN (BEAKER) (test uhzv=306) 4.9 gm/dL 6.0-8.3 ALBUMIN (BEAKER) (test kxxd=4719) 2.2 g/dL 3.5-5.0 BILIRUBIN TOTAL (BEAKER) (test xmdw=933) 25.9 mg/dL 0.2-1.2 BILIRUBIN DIRECT (BEAKER) (test ocdo=264) 19.8 mg/dL 0.1-0.5 ALKALINE PHOSPHATASE (BEAKER) (test tpna=210) 131 U/L 40-150 AST (SGOT) (BEAKER) (test lmjd=911) 52 U/L 5-34 ALT (SGPT) (BEAKER) (test bjzb=561) 24 U/L 6-55 Specimen markedly [id number] 05:14:00* Test Item Value Reference Range Comments MAGNESIUM (BEAKER) (test dliw=070) 1.8 mg/dL 1.6-2.6 VANCOMYCIN LEVEL, [id number] 05:02:00* Test Item Value Reference Range Comments VANCOMYCIN RANDOM (BEAKER) (test vrpz=101) 24.9 ug/mL Reference Range: No [id number] 04:59:00* Test Item Value Reference Range Comments FIBRINOGEN LEVEL (BEAKER) (test lngi=770) 396 mg/dl 225-434 CALCIUM, [id number] 04:54:00* Test Item Value Reference Range Comments CALCIUM IONIZED (BEAKER) (test lxln=379) 0.95 mmol/L 1.12-1.27 PH, BLOOD (BEAKER) (test dqpw=5044) 7.42 POCT-GLUCOSE [id number] 00:20:00* Test Item Value Reference Range Comments POC-GLUCOSE METER (BEAKER) (test yfmt=6064) 121 mg/dL 70-[address] [facility] [address] [facility] [address] [id number] 21:59:00* Test Item Value Reference Range Comments POTASSIUM (BEAKER) (test cwbk=713) 3.9 meq/L 3.5-5.1 [id number] 21:59:00* Test Item Value Reference Range Comments MAGNESIUM (BEAKER) (test spca=077) 1.8 mg/dL 1.6-2.6 CALCIUM, [id number] 21:18:00* Test Item Value Reference Range Comments CALCIUM IONIZED (BEAKER) (test eqci=173) 1.20 mmol/L 1.12-1.27 PH, BLOOD (BEAKER) (test iban=4439) 7.45 MISCELLANEOUS LAB [id number] 20:17:00* Test Item Value Reference Range Comments SCAN RESULT (test edgw=[id number]) METHICILLIN-RESISTANT STAPH. AUREUS (MRSA) DETECTEDFirst line therapy: vancomycinID consultation strongly encouraged. Staphylococcus aureus DETECTED MecA DETECTEDTested at [facility] using the [employer] Film[employer] BCID Panel ([employer] | [place], [place]). This test has been FDA Approved and a verification was performed prior to clinical use. Reference Range : Not DetectedPOCT-GLUCOSE [id number] 18:38:00* Test Item Value Reference Range Comments POC-GLUCOSE METER (BEAKER) (test bqrt=5167) 118 mg/dL 70-110 TESTED AT [place] [address] EQUAL MIX, NORMAL [id number] 16:49:00* Test Item Value Reference Range Comments PROTIME (BEAKER) (test rxkt=026) 21.4 seconds 11.7-14.7 PARTIAL THROMBOPLASTIN TIME (BEAKER) (test xodb=062) 55.1 seconds 22.5-36.0 PT 1/1 MIX (BEAKER) (test dwhg=0347) 15.9 SECS 11.7-14.7 PTT 1/1 MIX (BEAKER) (test huof=3945) 43.0 SECS 22.5-36.0 Please resend, collection from 01/03 is lostPOCT-GLUCOSE [id number] 12:15:00 * Test Item Value Reference Range Comments POC-GLUCOSE METER (BEAKER) (test hjyh=1722) 124 mg/dL 70-110 TESTED AT [address] [address] BLOOD [id number] 12:00:00* Test Item Value Reference Range Comments CULTURE (BEAKER) (test pkai=2917) No growth in 5 days CBC W/PLT COUNT & AUTO [id number] 10:55:00* Test Item Value Reference Range Comments WHITE BLOOD CELL COUNT (BEAKER) (test otdd=242) 19.5 K/ L 4.0-10.0 RED BLOOD CELL COUNT (BEAKER) (test qxmz=698) 3.04 M/ L 4.20-5.80 HEMOGLOBIN (BEAKER) (test vocw=244) 9.4 GM/DL 13.0-16.8 HEMATOCRIT (BEAKER) (test lmgh=781) 28.7 % 40.0-50.0 MEAN CORPUSCULAR VOLUME (BEAKER) (test uuaw=842) 94.4 fL 82.0-98.0 MEAN CORPUSCULAR HEMOGLOBIN (BEAKER) (test kpwd=529) 31.0 pg 27.0-33.0 MEAN CORPUSCULAR HEMOGLOBIN CONC (BEAKER) (test nxms=797) 32.9 GM/DL 32.0- 36.0 RED CELL DISTRIBUTION WIDTH (BEAKER) (test ctkt=052) 25.1 % 10.3-14.2 PLATELET COUNT (BEAKER) (test vivo=982) 216 K/CU MM 150-430 MEAN PLATELET VOLUME (BEAKER) (test rbxm=331) 10.7 fL 6.5-10.5 NUCLEATED RED BLOOD CELLS (BEAKER) (test aqdk=052) 0 /100 WBC 0-0 NEUTROPHILS RELATIVE PERCENT (BEAKER) (test cvhs=989) 88 % LYMPHOCYTES RELATIVE PERCENT (BEAKER) (test enzv=430) 2 % MONOCYTES RELATIVE PERCENT (BEAKER) (test inkj=249) 10 % EOSINOPHILS RELATIVE PERCENT (BEAKER) (test qirs=693) 0 % BASOPHILS RELATIVE PERCENT (BEAKER) (test augl=640) 0 % NEUTROPHILS ABSOLUTE COUNT (BEAKER) (test uhdd=351) 17.20 K/ L 1.80-8.00 LYMPHOCYTES ABSOLUTE COUNT (BEAKER) (test pbxh=988) 0.43 K/ L 1.48-4.50 MONOCYTES ABSOLUTE COUNT (BEAKER) (test zqfy=821) 1.86 K/ L 0.00-1.30 EOSINOPHILS ABSOLUTE COUNT (BEAKER) (test ypvw=877) 0.02 K/ L 0.00-0.50 BASOPHILS ABSOLUTE COUNT (BEAKER) (test vefi=055) 0.00 K/ L 0.00-0.20 0.000.570.590.000.520.000.000.000.00(MANUAL DIFFERENTIAL)2017-01-04 10:55:00* Test Item Value Reference Range Comments TOTAL COUNTED (BEAKER) (test qglp=3419) WBC MORPHOLOGY (BEAKER) (test xvsb=294) Normal PLT MORPHOLOGY (BEAKER) (test hlsk=224) Normal ANISOCYTOSIS (BEAKER) (test uwmy=103) 2+ moderate POLYCHROMATOPHILLIC RBCS(BEAKER) (test qenz=233) 2+ moderate [id number] 08:04:00* Test Item Value Reference Range Comments PARTIAL THROMBOPLASTIN TIME (BEAKER) (test iqxn=560) 65.0 seconds 22.5-36.0 4 hours after the start of continuous infusion and 4 hours after any rate [id number] 06:15:00* Test Item Value Reference Range Comments MAGNESIUM (BEAKER) (test nngb=691) 1.6 mg/dL 1.6-2.6 BASIC METABOLIC [id number] 06:15:00* Test Item Value Reference Range Comments SODIUM (BEAKER) (test balq=917) 143 meq/L 136-145 POTASSIUM (BEAKER) (test fyet=543) 3.7 meq/L 3.5-5.1 CHLORIDE (BEAKER) (test hesz=000) 114 meq/L 98-107 CO2 (BEAKER) (test qqrd=572) 19 meq/L 22-29 BLOOD UREA NITROGEN (BEAKER) (test deic=060) 37 mg/dL 7-21 CREATININE (BEAKER) (test jrsm=550) 2.58 mg/dL 0.57-1.25 GLUCOSE RANDOM (BEAKER) (test fvob=628) 101 mg/dL 70-105 CALCIUM (BEAKER) (test alvv=974) 6.8 mg/dL 8.4-10.2 EGFR (BEAKER) (test hfac=0281) 29 mL/min/1.73 sq m ESTIMATED GFR IS NOT ACCURATE CREATININE CLEARANCE IN PREDICTING GLOMERULAR FILTRATION RATE. ESTIMATED GFR IS NOT APPLICABLE FOR DIALYSIS PATIENTS. Specimen markedly ictericCALCIUM, [id number] 06:03:00* Test Item Value Reference Range Comments CALCIUM IONIZED (BEAKER) (test ufab=040) 1.12 mmol/L 1.12-1.27 PH, BLOOD (BEAKER) (test mmbm=5598) 7.43 HEPATIC FUNCTION [id number] 05:51:00* Test Item Value Reference Range Comments TOTAL PROTEIN (BEAKER) (test wlmo=700) 4.9 gm/dL 6.0-8.3 ALBUMIN (BEAKER) (test rihn=0721) 2.3 g/dL 3.5-5.0 BILIRUBIN TOTAL (BEAKER) (test psuf=171) 27.9 mg/dL 0.2-1.2 BILIRUBIN DIRECT (BEAKER) (test eokw=112) 21.6 mg/dL 0.1-0.5 ALKALINE PHOSPHATASE (BEAKER) (test umww=922) 113 U/L 40-150 AST (SGOT) (BEAKER) (test xmlj=471) 52 U/L 5-34 ALT (SGPT) (BEAKER) (test dvae=422) 23 U/L 6-55 Specimen markedly ictericBASIC METABOLIC [id number] 05:51:00* Test Item Value Reference Range Comments SODIUM (BEAKER) (test gpki=212) 141 meq/L 136-145 POTASSIUM (BEAKER) (test ngvy=175) 4.5 meq/L 3.5-5.1 CHLORIDE (BEAKER) (test hwzl=232) 106 meq/L 98-107 CO2 (BEAKER) (test zzkh=984) 24 meq/L 22-29 BLOOD UREA NITROGEN (BEAKER) (test hffw=335) 43 mg/dL 7-21 CREATININE (BEAKER) (test nliq=290) 3.20 mg/dL 0.57-1.25 GLUCOSE RANDOM (BEAKER) (test wddk=261) 112 mg/dL 70-105 CALCIUM (BEAKER) (test ouub=579) 8.4 mg/dL 8.4-10.2 EGFR (BEAKER) (test rhlt=9528) 22 mL/min/1.73 sq m ESTIMATED GFR IS NOT ACCURATE CREATININE CLEARANCE IN PREDICTING GLOMERULAR FILTRATION RATE. ESTIMATED GFR IS NOT APPLICABLE FOR DIALYSIS PATIENTS. Specimen markedly [id number] 05:28:00* Test Item Value Reference Range Comments FIBRINOGEN LEVEL (BEAKER) (test wtus=251) 306 mg/dl 225-434 POCT-GLUCOSE [id number] 00:55:00* Test Item Value Reference Range Comments POC-GLUCOSE METER (BEAKER) (test cmzj=0658) 118 mg/dL 70-[address] [facility] [address] [facility] [address] [id number] 00:17:00* Test Item Value Reference Range Comments PARTIAL THROMBOPLASTIN TIME (BEAKER) (test gbfz=651) 95.4 seconds 22.5-36.0 4 hours after the start of continuous infusion and 4 hours after any rate [id number] 20:23:00* Test Item Value Reference Range Comments PARTIAL THROMBOPLASTIN TIME (BEAKER) (test asto=665) 80.1 seconds 22.5-36.0 4 hours after the start of continuous infusion and 4 hours after any rate changeBLOOD [id number] 18:00:00* Test Item Value Reference Range Comments CULTURE (BEAKER) (test vvdv=6902) No growth in 5 days [id number] 17:26:00* Test Item Value Reference Range Comments PARTIAL THROMBOPLASTIN TIME (BEAKER) (test jwjw=243) 110.3 seconds 22.5-36.0 4 hours after the start of continuous infusion and 4 hours after any rate changePOCT-GLUCOSE [id number] 12:35:00* Test Item Value Reference Range Comments POC-GLUCOSE METER (BEAKER) (test mtol=0151) 99 mg/dL 70-[address] [facility] [address] [facility] [address] [id number] 11:29:00* Test Item Value Reference Range Comments PARTIAL THROMBOPLASTIN TIME (BEAKER) (test gngg=842) 81.6 seconds 22.5-36.0 4 hours after the start of continuous infusion and 4 hours after any rate changeCBC W/PLT COUNT & AUTO [id number] 09:56:00* Test Item Value Reference Range Comments WHITE BLOOD CELL COUNT (BEAKER) (test bjpv=654) 20.5 K/ L 4.0-10.0 RED BLOOD CELL COUNT (BEAKER) (test krqm=301) 2.96 M/ L 4.20-5.80 HEMOGLOBIN (BEAKER) (test ydni=229) 8.9 GM/DL 13.0-16.8 HEMATOCRIT (BEAKER) (test bzqm=916) 28.1 % 40.0-50.0 MEAN CORPUSCULAR VOLUME (BEAKER) (test wmne=612) 94.8 fL 82.0-98.0 MEAN CORPUSCULAR HEMOGLOBIN (BEAKER) (test ejkp=295) 30.1 pg 27.0-33.0 MEAN CORPUSCULAR HEMOGLOBIN CONC (BEAKER) (test ieym=315) 31.8 GM/DL 32.0- 36.0 RED CELL DISTRIBUTION WIDTH (BEAKER) (test xjlj=241) 24.9 % 10.3-14.2 PLATELET COUNT (BEAKER) (test luim=697) 153 K/CU MM 150-430 MEAN PLATELET VOLUME (BEAKER) (test iupw=812) 6.4 fL 6.5-10.5 NUCLEATED RED BLOOD CELLS (BEAKER) (test luzr=353) 0 /100 WBC 0-0 NEUTROPHILS RELATIVE PERCENT (BEAKER) (test cdbo=458) 87 % LYMPHOCYTES RELATIVE PERCENT (BEAKER) (test hgzh=708) 4 % MONOCYTES RELATIVE PERCENT (BEAKER) (test aoze=406) 9 % EOSINOPHILS RELATIVE PERCENT (BEAKER) (test wtqn=198) 0 % BASOPHILS RELATIVE PERCENT (BEAKER) (test ehbf=580) 0 % NEUTROPHILS ABSOLUTE COUNT (BEAKER) (test reqi=849) 17.80 K/ L 1.80-8.00 LYMPHOCYTES ABSOLUTE COUNT (BEAKER) (test ecsn=522) 0.77 K/ L 1.48-4.50 MONOCYTES ABSOLUTE COUNT (BEAKER) (test nzta=279) 1.82 K/ L 0.00-1.30 EOSINOPHILS ABSOLUTE COUNT (BEAKER) (test fjla=530) 0.09 K/ L 0.00-0.50 BASOPHILS ABSOLUTE COUNT (BEAKER) (test kosr=532) 0.02 K/ L 0.00-0.20 0.000.580.580.000.520.000.000.000.00(MANUAL DIFFERENTIAL)2017-01-03 09:56:00* Test Item Value Reference Range Comments TOTAL COUNTED (BEAKER) (test mbnh=1277) WBC MORPHOLOGY (BEAKER) (test kqno=017) Normal PLT MORPHOLOGY (BEAKER) (test mizc=762) Normal RBC MORPHOLOGY (BEAKER) (test wqko=391) Normal BLOOD [id number] 09:13:00* Test Item Value Reference Range Comments CULTURE (BEAKER) (test wddx=2742) From Aerobic And Anaerobic Bottles Same organism has been isolated from cultures(s) of the same body site within 3 days. Repeat identification and susceptibility testing performed only after consultation with the clinical microbiology laboratory.Refer to previous culture ofMethicillin resistant Staphylococcus aureus GRAM STAIN RESULT (BEAKER) (test itef=6724) From aerobic and anaerobic bottles : gram positive cocci in clusters BASIC METABOLIC [id number] 06:04:00* Test Item Value Reference Range Comments SODIUM (BEAKER) (test ptdt=763) 140 meq/L 136-145 POTASSIUM (BEAKER) (test heby=424) 4.5 meq/L 3.5-5.1 Specimen slightly hemolyzed CHLORIDE (BEAKER) (test xklh=369) 107 meq/L 98-107 CO2 (BEAKER) (test gcin=488) 23 meq/L 22-29 BLOOD UREA NITROGEN (BEAKER) (test bgge=531) 20 mg/dL 7-21 CREATININE (BEAKER) (test xwls=432) 1.43 mg/dL 0.57-1.25 Specimen slightly hemolyzed GLUCOSE RANDOM (BEAKER) (test kkfk=113) 89 mg/dL 70-105 CALCIUM (BEAKER) (test pruw=931) 8.7 mg/dL 8.4-10.2 EGFR (BEAKER) (test wcxc=9389) 57 mL/min/1.73 sq m ESTIMATED GFR IS NOT ACCURATE CREATININE CLEARANCE IN PREDICTING GLOMERULAR FILTRATION RATE. ESTIMATED GFR IS NOT APPLICABLE FOR DIALYSIS PATIENTS. Specimen markedly ictericHEPATIC FUNCTION [id number] 04:35:00* Test Item Value Reference Range Comments TOTAL PROTEIN (BEAKER) (test yxrq=741) 4.9 gm/dL 6.0-8.3 ALBUMIN (BEAKER) (test hyiw=3262) 2.4 g/dL 3.5-5.0 BILIRUBIN TOTAL (BEAKER) (test afly=398) 25.4 mg/dL 0.2-1.2 BILIRUBIN DIRECT (BEAKER) (test hszf=103) 21.1 mg/dL 0.1-0.5 ALKALINE PHOSPHATASE (BEAKER) (test nmzz=025) 108 U/L 40-150 AST (SGOT) (BEAKER) (test flby=732) 42 U/L 5-34 ALT (SGPT) (BEAKER) (test vemg=997) 19 U/L 6-55 Specimen markedly [id number] 04:14:00* Test Item Value Reference Range Comments FIBRINOGEN LEVEL (BEAKER) (test fwir=055) 379 mg/dl 225-434 PT/[id number] 04:14:00* Test Item Value Reference Range Comments PROTIME (BEAKER) (test mxrp=272) 20.8 seconds 11.7-14.7 INR (BEAKER) (test jjol=701) 1.8 <=5.9 PARTIAL THROMBOPLASTIN TIME (BEAKER) (test mukg=956) 49.7 seconds 22.5-36.0 RECOMMENDED COUMADIN/WARFARIN INR THERAPY RANGESSTANDARD DOSE: 2.0 - 3.0 Includes: PROPHYLAXIS for venous thrombosis, systemic embolization; TREATMENT for venous thrombosis and/or pulmonary embolus.HIGH RISK: Target INR is 2.5-3.5 for patients with mechanical heart valves.HEMOGLOBIN AND [id number] 01 :45:00* Test Item Value Reference Range Comments HEMOGLOBIN (BEAKER) (test gphg=706) 9.3 GM/DL 13.0-16.8 HEMATOCRIT (BEAKER) (test xiwf=230) 28.2 % 40.0-50.0 [id number] 01:34:00* Test Item Value Reference Range Comments PHOSPHORUS (BEAKER) (test rdaq=259) 3.0 mg/dL 2.3-4.7 [id number] 01:34:00* Test Item Value Reference Range Comments MAGNESIUM (BEAKER) (test ikra=036) 1.9 mg/dL 1.6-2.6 BASIC METABOLIC [id number] 01:34:00* Test Item Value Reference Range Comments SODIUM (BEAKER) (test hvvp=130) 139 meq/L 136-145 POTASSIUM (BEAKER) (test lsmr=473) 4.3 meq/L 3.5-5.1 CHLORIDE (BEAKER) (test xvjl=727) 107 meq/L 98-107 CO2 (BEAKER) (test clmr=056) 22 meq/L 22-29 BLOOD UREA NITROGEN (BEAKER) (test rmii=568) 24 mg/dL 7-21 CREATININE (BEAKER) (test loyz=320) 1.84 mg/dL 0.57-1.25 GLUCOSE RANDOM (BEAKER) (test oowm=041) 86 mg/dL 70-105 CALCIUM (BEAKER) (test lcrn=627) 8.6 mg/dL 8.4-10.2 EGFR (BEAKER) (test kimy=3583) 43 mL/min/1.73 sq m ESTIMATED GFR IS NOT ACCURATE CREATININE CLEARANCE IN PREDICTING GLOMERULAR FILTRATION RATE. ESTIMATED GFR IS NOT APPLICABLE FOR DIALYSIS PATIENTS. Specimen markedly ictericCALCIUM, [id number] 01:18:00* Test Item Value Reference Range Comments CALCIUM IONIZED (BEAKER) (test vcrf=962) 1.06 mmol/L 1.12-1.27 PH, BLOOD (BEAKER) (test keec=7441) 7.49 CALCIUM, [id number] 20:57:00* Test Item Value Reference Range Comments CALCIUM IONIZED (BEAKER) (test gyqw=079) 1.07 mmol/L 1.12-1.27 PH, BLOOD (BEAKER) (test qqqe=7961) 7.51 [id number] 20:52:00* Test Item Value Reference Range Comments PHOSPHORUS (BEAKER) (test dtsv=948) 2.5 mg/dL 2.3-4.7 [id number] 20:52:00* Test Item Value Reference Range Comments MAGNESIUM (BEAKER) (test veqx=047) 2.4 mg/dL 1.6-2.6 BASIC METABOLIC [id number] 20:52:00* Test Item Value Reference Range Comments SODIUM (BEAKER) (test tbts=663) 139 meq/L 136-145 POTASSIUM (BEAKER) (test zjzr=147) 4.3 meq/L 3.5-5.1 CHLORIDE (BEAKER) (test efsz=548) 107 meq/L 98-107 CO2 (BEAKER) (test czcc=378) 21 meq/L 22-29 BLOOD UREA NITROGEN (BEAKER) (test iyrd=398) 28 mg/dL 7-21 CREATININE (BEAKER) (test emia=622) 2.24 mg/dL 0.57-1.25 GLUCOSE RANDOM (BEAKER) (test raug=432) 82 mg/dL 70-105 CALCIUM (BEAKER) (test oejp=853) 8.5 mg/dL 8.4-10.2 EGFR (BEAKER) (test xkco=3765) 34 mL/min/1.73 sq m ESTIMATED GFR IS NOT ACCURATE CREATININE CLEARANCE IN PREDICTING GLOMERULAR FILTRATION RATE. ESTIMATED GFR IS NOT APPLICABLE FOR DIALYSIS PATIENTS. Specimen markedly [id number] 17:46:00* Test Item Value Reference Range Comments PARTIAL THROMBOPLASTIN TIME (BEAKER) (test rhcm=189) 85.3 seconds 22.5-36.0 4 hours after the start of continuous infusion and 4 hours after any rate changeVANCOMYCIN LEVEL, [id number] 17:03:00* Test Item Value Reference Range Comments VANCOMYCIN TROUGH (BEAKER) (test pcvz=334) 16.6 ug/mL 10.0-20.0 VITAMIN B12 AND [id number] 14:56:00* Test Item Value Reference Range Comments VITAMIN B12 (BEAKER) (test rjzm=840) > pg/mL 213-816 FOLATE (BEAKER) (test mizj=747) 4.4 ng/mL >=7.0 Effective 05/13/2014: Folate Reference Range ChangeNew: >=7.0 Previous: >= 5.4CBC W/PLT COUNT & AUTO [id number] 14:02:00* Test Item Value Reference Range Comments WHITE BLOOD CELL COUNT (BEAKER) (test erks=150) 23.2 K/ L 4.0-10.0 RED BLOOD CELL COUNT (BEAKER) (test fwjb=235) 3.09 M/ L 4.20-5.80 HEMOGLOBIN (BEAKER) (test jmqi=740) 9.6 GM/DL 13.0-16.8 HEMATOCRIT (BEAKER) (test kspj=606) 28.5 % 40.0-50.0 MEAN CORPUSCULAR VOLUME (BEAKER) (test czyi=043) 92.0 fL 82.0-98.0 MEAN CORPUSCULAR HEMOGLOBIN (BEAKER) (test qlmi=663) 30.9 pg 27.0-33.0 MEAN CORPUSCULAR HEMOGLOBIN CONC (BEAKER) (test yqyo=015) 33.6 GM/DL 32.0- 36.0 RED CELL DISTRIBUTION WIDTH (BEAKER) (test prmn=962) 25.4 % 10.3-14.2 PLATELET COUNT (BEAKER) (test ypkp=459) 105 K/CU MM 150-430 MEAN PLATELET VOLUME (BEAKER) (test adbe=157) 7.4 fL 6.5-10.5 NUCLEATED RED BLOOD CELLS (BEAKER) (test gnvf=690) 1 /100 WBC 0-0 NEUTROPHILS RELATIVE PERCENT (BEAKER) (test sdrm=018) 87 % LYMPHOCYTES RELATIVE PERCENT (BEAKER) (test pmxn=361) 5 % MONOCYTES RELATIVE PERCENT (BEAKER) (test itjk=308) 7 % EOSINOPHILS RELATIVE PERCENT (BEAKER) (test vljc=362) 1 % BASOPHILS RELATIVE PERCENT (BEAKER) (test tmvy=654) 0 % NEUTROPHILS ABSOLUTE COUNT (BEAKER) (test wwvq=338) 20.10 K/ L 1.80-8.00 LYMPHOCYTES ABSOLUTE COUNT (BEAKER) (test glam=549) 1.08 K/ L 1.48-4.50 MONOCYTES ABSOLUTE COUNT (BEAKER) (test igmq=727) 1.65 K/ L 0.00-1.30 EOSINOPHILS ABSOLUTE COUNT (BEAKER) (test kbcq=625) 0.35 K/ L 0.00-0.50 BASOPHILS ABSOLUTE COUNT (BEAKER) (test onuq=434) 0.00 K/ L 0.00-0.20 0.000.640.000.000.650.000.000.000.00(MANUAL DIFFERENTIAL)2017-01-02 14:02:00* Test Item Value Reference Range Comments TOTAL COUNTED (BEAKER) (test imce=9714) WBC MORPHOLOGY (BEAKER) (test vkam=336) Normal PLT MORPHOLOGY (BEAKER) (test bijn=492) Normal RBC MORPHOLOGY (BEAKER) (test qxxe=350) Normal IRON, TIBC, % SAT. (WITHOUT FERRITIN)2017-01-02 13:11:00* Test Item Value Reference Range Comments IRON (BEAKER) (test tvcc=088) 27 ug/dL 40-160 TOTAL IRON BINDING CAPACITY (BEAKER) (test svpr=405) 103 ug/dL 250-450 IRON % SATURATION (2) (BEAKER) (test mkdq=8256) 26 % 20-55 BASIC METABOLIC [id number] 12:56:00* Test Item Value Reference Range Comments SODIUM (BEAKER) (test xacg=872) 139 meq/L 136-145 POTASSIUM (BEAKER) (test htzf=248) 4.0 meq/L 3.5-5.1 CHLORIDE (BEAKER) (test bjbh=192) 106 meq/L 98-107 CO2 (BEAKER) (test hgof=682) 24 meq/L 22-29 BLOOD UREA NITROGEN (BEAKER) (test oivz=288) 21 mg/dL 7-21 CREATININE (BEAKER) (test aynz=971) 1.65 mg/dL 0.57-1.25 GLUCOSE RANDOM (BEAKER) (test nlmr=765) 72 mg/dL 70-105 CALCIUM (BEAKER) (test agmr=436) 9.2 mg/dL 8.4-10.2 EGFR (BEAKER) (test hdij=7614) 48 mL/min/1.73 sq m ESTIMATED GFR IS NOT ACCURATE CREATININE CLEARANCE IN PREDICTING GLOMERULAR FILTRATION RATE. ESTIMATED GFR IS NOT APPLICABLE FOR DIALYSIS PATIENTS. Specimen markedly ictericCBC W/PLT COUNT & AUTO [id number] 10:39:00 * Test Item Value Reference Range Comments WHITE BLOOD CELL COUNT (BEAKER) (test fota=336) 23.6 K/ L 4.0-10.0 RED BLOOD CELL COUNT (BEAKER) (test wgdz=336) 3.18 M/ L 4.20-5.80 HEMOGLOBIN (BEAKER) (test jymp=043) 9.7 GM/DL 13.0-16.8 HEMATOCRIT (BEAKER) (test wbxp=918) 29.3 % 40.0-50.0 MEAN CORPUSCULAR VOLUME (BEAKER) (test bupp=871) 92.2 fL 82.0-98.0 MEAN CORPUSCULAR HEMOGLOBIN (BEAKER) (test zgxv=058) 30.5 pg 27.0-33.0 MEAN CORPUSCULAR HEMOGLOBIN CONC (BEAKER) (test zsxt=286) 33.1 GM/DL 32.0- 36.0 RED CELL DISTRIBUTION WIDTH (BEAKER) (test bfef=846) 25.1 % 10.3-14.2 PLATELET COUNT (BEAKER) (test tgqx=725) 119 K/CU MM 150-430 MEAN PLATELET VOLUME (BEAKER) (test lhut=920) 8.3 fL 6.5-10.5 NUCLEATED RED BLOOD CELLS (BEAKER) (test idmr=726) 1 /100 WBC 0-0 NEUTROPHILS RELATIVE PERCENT (BEAKER) (test gino=335) 88 % LYMPHOCYTES RELATIVE PERCENT (BEAKER) (test tjoh=580) 3 % MONOCYTES RELATIVE PERCENT (BEAKER) (test pcpa=098) 8 % EOSINOPHILS RELATIVE PERCENT (BEAKER) (test urhi=949) 1 % BASOPHILS RELATIVE PERCENT (BEAKER) (test ixur=804) 0 % NEUTROPHILS ABSOLUTE COUNT (BEAKER) (test jwqa=168) 20.80 K/ L 1.80-8.00 LYMPHOCYTES ABSOLUTE COUNT (BEAKER) (test npzf=812) 0.66 K/ L 1.48-4.50 MONOCYTES ABSOLUTE COUNT (BEAKER) (test vbsc=456) 1.85 K/ L 0.00-1.30 EOSINOPHILS ABSOLUTE COUNT (BEAKER) (test adzv=515) 0.30 K/ L 0.00-0.50 BASOPHILS ABSOLUTE COUNT (BEAKER) (test ktnv=059) 0.02 K/ L 0.00-0.20 0.000.640.000.000.670.000.000.000.00(MANUAL DIFFERENTIAL)2017-01-02 10:39:00* Test Item Value Reference Range Comments TOTAL COUNTED (BEAKER) (test bywm=0318) WBC MORPHOLOGY (BEAKER) (test hiyx=972) Normal PLT MORPHOLOGY (BEAKER) (test xqeq=447) Normal ANISOCYTOSIS (BEAKER) (test ezdo=035) 2+ moderate POLYCHROMATOPHILLIC RBCS(BEAKER) (test nngb=502) 2+ moderate BLOOD GAS, [id number] 08:59:00* Test Item Value Reference Range Comments PH ARTERIAL (BEAKER) (test jbmm=642) 7.52 7.35-7.45 PCO2 ARTERIAL (BEAKER) (test bous=629) 31 mmHg 35-45 PO2 ARTERIAL (BEAKER) (test gxbb=978) 83 mmHg 80-90 O2 SATURATION ARTERIAL (BEAKER) (test wpgw=551) 97.2 % 96.0-97.0 HCO3 ARTERIAL (BEAKER) (test fnul=290) 25 mmol/L 21-29 BASE EXCESS ARTERIAL (BEAKER) (test yocg=769) 2.1 mmol/L -2.0-3.0 PATIENT TEMPERATURE (BEAKER) (test qqdl=6342) 37.0 C FIO2 (BEAKER) (test obon=9200) 28.0 % [id number] 08:42:00* Test Item Value Reference Range Comments POTASSIUM (BEAKER) (test ztii=183) 4.1 meq/L 3.5-5.1 [id number] 08:42:00* Test Item Value Reference Range Comments MAGNESIUM (BEAKER) (test vgcz=008) 1.8 mg/dL 1.6-2.6 [id number] 08:42:00* Test Item Value Reference Range Comments PHOSPHORUS (BEAKER) (test zatc=410) 2.1 mg/dL 2.3-4.7 [id number] 08:42:00* Test Item Value Reference Range Comments SODIUM (BEAKER) (test hvdg=756) 140 meq/L 136-145 [id number] 08:35:00* Test Item Value Reference Range Comments PARTIAL THROMBOPLASTIN TIME (BEAKER) (test gcpr=236) 67.2 seconds 22.5-36.0 4 hours after the start of continuous infusion and 4 hours after any rate changeCALCIUM, [id number] 08:18:00* Test Item Value Reference Range Comments CALCIUM IONIZED (BEAKER) (test gvfa=202) 1.19 mmol/L 1.12-1.27 PH, BLOOD (BEAKER) (test tdqe=4979) 7.49 [id number] 06:24:00* Test Item Value Reference Range Comments CALCIUM (BEAKER) (test kmno=018) 9.1 mg/dL 8.4-10.2 HEPATIC FUNCTION [id number] 04:40:00* Test Item Value Reference Range Comments TOTAL PROTEIN (BEAKER) (test fxvh=617) 5.0 gm/dL 6.0-8.3 ALBUMIN (BEAKER) (test eswh=9730) 2.5 g/dL 3.5-5.0 BILIRUBIN TOTAL (BEAKER) (test xpyb=661) 24.8 mg/dL 0.2-1.2 BILIRUBIN DIRECT (BEAKER) (test zdua=583) 20.5 mg/dL 0.1-0.5 ALKALINE PHOSPHATASE (BEAKER) (test dptl=109) 102 U/L 40-150 AST (SGOT) (BEAKER) (test jgqh=740) 48 U/L 5-34 ALT (SGPT) (BEAKER) (test bqtf=745) 22 U/L 6-55 Specimen markedly ictericBASIC METABOLIC [id number] 04:30:00* Test Item Value Reference Range Comments SODIUM (BEAKER) (test zmeo=847) 139 meq/L 136-145 POTASSIUM (BEAKER) (test rfma=452) 4.1 meq/L 3.5-5.1 CHLORIDE (BEAKER) (test yzaw=223) 106 meq/L 98-107 CO2 (BEAKER) (test rxcs=640) 24 meq/L 22-29 BLOOD UREA NITROGEN (BEAKER) (test tvsm=522) 22 mg/dL 7-21 CREATININE (BEAKER) (test lnyb=549) 1.51 mg/dL 0.57-1.25 GLUCOSE RANDOM (BEAKER) (test vyiz=742) 81 mg/dL 70-105 CALCIUM (BEAKER) (test zplj=394) 9.1 mg/dL 8.4-10.2 EGFR (BEAKER) (test liup=2833) 53 mL/min/1.73 sq m ESTIMATED GFR IS NOT ACCURATE CREATININE CLEARANCE IN PREDICTING GLOMERULAR FILTRATION RATE. ESTIMATED GFR IS NOT APPLICABLE FOR DIALYSIS PATIENTS. Specimen markedly [id number] 03:58:00* Test Item Value Reference Range Comments FIBRINOGEN LEVEL (BEAKER) (test cixj=860) 373 mg/dl 225-434 4 hours after the start of continuous infusion and 4 hours after any rate [id number] 03:54:00* Test Item Value Reference Range Comments PARTIAL THROMBOPLASTIN TIME (BEAKER) (test injc=840) 63.9 seconds 22.5-36.0 4 hours after the start of continuous infusion and 4 hours after any rate changeCALCIUM, [id number] 00:29:00* Test Item Value Reference Range Comments CALCIUM IONIZED (BEAKER) (test qbae=266) 1.20 mmol/L 1.12-1.27 PH, BLOOD (BEAKER) (test irhp=6596) 7.46 [id number] 00:08:00* Test Item Value Reference Range Comments POTASSIUM (BEAKER) (test ptsd=347) 3.9 meq/L 3.5-5.1 [id number] 22:17:00* Test Item Value Reference Range Comments PARTIAL THROMBOPLASTIN TIME (BEAKER) (test wvho=947) 72.8 seconds 22.5-36.0 4 hours after the start of continuous infusion and 4 hours after any rate [id number] 21:01:00* Test Item Value Reference Range Comments POTASSIUM (BEAKER) (test vpgi=317) 3.7 meq/L 3.5-5.1 [id number] 21:01:00* Test Item Value Reference Range Comments MAGNESIUM (BEAKER) (test uylt=976) 1.8 mg/dL 1.6-2.6 [id number] 21:01:00* Test Item Value Reference Range Comments PHOSPHORUS (BEAKER) (test acvo=650) 2.7 mg/dL 2.3-4.7 [id number] 21:01:00* Test Item Value Reference Range Comments SODIUM (BEAKER) (test phqy=906) 138 meq/L 136-145 VANCOMYCIN LEVEL, [id number] 18:43:00* Test Item Value Reference Range Comments VANCOMYCIN TROUGH (BEAKER) (test ymrh=301) 13.2 ug/mL 10.0-20.0 Please draw 30 minutes before administration of vancomycin dose.[id number] -[id number] 18:33:00* Test Item Value Reference Range Comments POTASSIUM (BEAKER) (test bbkk=429) 4.1 meq/L 3.5-5.1 [id number] 17:51:00* Test Item Value Reference Range Comments PARTIAL THROMBOPLASTIN TIME (BEAKER) (test ugjm=664) 65.0 seconds 22.5-36.0 4 hours after the start of continuous infusion and 4 hours after any rate changePOCT-GLUCOSE [id number] 17:37:00* Test Item Value Reference Range Comments POC-GLUCOSE METER (BEAKER) (test mjnt=6804) 98 mg/dL 70-[address] [facility] [address] [facility] [address] CALCIUM, [id number] 17:07:00* Test Item Value Reference Range Comments CALCIUM IONIZED (BEAKER) (test yhag=528) 1.14 mmol/L 1.12-1.27 PH, BLOOD (BEAKER) (test akzm=2965) 7.46 [id number] 13:36:00* Test Item Value Reference Range Comments POTASSIUM (BEAKER) (test mhbk=539) 3.8 meq/L 3.5-5.1 [id number] 13:24:00* Test Item Value Reference Range Comments PARTIAL THROMBOPLASTIN TIME (BEAKER) (test hmdc=001) 48.3 seconds 22.5-36.0 4 hours after the start of continuous infusion and 4 hours after any rate changeBLOOD GAS, [id number] 10:19:00* Test Item Value Reference Range Comments PH ARTERIAL (BEAKER) (test xfcs=146) 7.48 7.35-7.45 PCO2 ARTERIAL (BEAKER) (test ayxo=580) 34 mmHg 35-45 PO2 ARTERIAL (BEAKER) (test bueu=436) 142 mmHg 80-90 O2 SATURATION ARTERIAL (BEAKER) (test siaa=649) 99.0 % 96.0-97.0 HCO3 ARTERIAL (BEAKER) (test dwof=863) 24 mmol/L 21-29 BASE EXCESS ARTERIAL (BEAKER) (test nxei=881) 1.0 mmol/L -2.0-3.0 PATIENT TEMPERATURE (BEAKER) (test okez=5565) 37.0 C FIO2 (BEAKER) (test gezy=6870) 40.0 % CBC W/PLT COUNT & AUTO [id number] 10:11:00* Test Item Value Reference Range Comments WHITE BLOOD CELL COUNT (BEAKER) (test oqke=674) 29.0 K/ L 4.0-10.0 RED BLOOD CELL COUNT (BEAKER) (test ylid=193) 3.31 M/ L 4.20-5.80 HEMOGLOBIN (BEAKER) (test iqsb=220) 9.6 GM/DL 13.0-16.8 HEMATOCRIT (BEAKER) (test zfii=886) 30.1 % 40.0-50.0 MEAN CORPUSCULAR VOLUME (BEAKER) (test bqjw=467) 90.8 fL 82.0-98.0 MEAN CORPUSCULAR HEMOGLOBIN (BEAKER) (test pltm=055) 28.9 pg 27.0-33.0 MEAN CORPUSCULAR HEMOGLOBIN CONC (BEAKER) (test jdkg=630) 31.9 GM/DL 32.0- 36.0 RED CELL DISTRIBUTION WIDTH (BEAKER) (test yjvn=346) 25.3 % 10.3-14.2 PLATELET COUNT (BEAKER) (test hovs=121) 77 K/CU MM 150-430 MEAN PLATELET VOLUME (BEAKER) (test wber=825) 8.5 fL 6.5-10.5 NUCLEATED RED BLOOD CELLS (BEAKER) (test jbxs=369) 3 /100 WBC 0-0 NEUTROPHILS RELATIVE PERCENT (BEAKER) (test ehxn=751) 91 % LYMPHOCYTES RELATIVE PERCENT (BEAKER) (test igra=587) 2 % MONOCYTES RELATIVE PERCENT (BEAKER) (test yayp=331) 6 % EOSINOPHILS RELATIVE PERCENT (BEAKER) (test ntpg=724) 0 % BASOPHILS RELATIVE PERCENT (BEAKER) (test gfoa=808) 0 % NEUTROPHILS ABSOLUTE COUNT (BEAKER) (test chhc=952) 26.40 K/ L 1.80-8.00 LYMPHOCYTES ABSOLUTE COUNT (BEAKER) (test caet=419) 0.67 K/ L 1.48-4.50 MONOCYTES ABSOLUTE COUNT (BEAKER) (test cbbs=134) 1.70 K/ L 0.00-1.30 EOSINOPHILS ABSOLUTE COUNT (BEAKER) (test xqoe=143) 0.14 K/ L 0.00-0.50 BASOPHILS ABSOLUTE COUNT (BEAKER) (test tvls=624) 0.02 K/ L 0.00-0.20 0.000.690.000.000.770.000.000.000.00(MANUAL DIFFERENTIAL)2017-01-01 10:11:00* Test Item Value Reference Range Comments TOTAL COUNTED (BEAKER) (test hedl=3842) WBC MORPHOLOGY (BEAKER) (test txfa=232) Normal PLT MORPHOLOGY (BEAKER) (test xykz=415) Normal SCHISTOCYTES (BEAKER) (test hmyk=135) 1+ few POLYCHROMATOPHILLIC RBCS(BEAKER) (test xvnu=310) 1+ few [id number] 09:11:00* Test Item Value Reference Range Comments MAGNESIUM (BEAKER) (test kqkk=454) 1.9 mg/dL 1.6-2.6 [id number] 09:11:00* Test Item Value Reference Range Comments PHOSPHORUS (BEAKER) (test wrut=629) 2.7 mg/dL 2.3-4.7 [id number] 09:11:00* Test Item Value Reference Range Comments SODIUM (BEAKER) (test rrqg=207) 137 meq/L 136-145 BASIC METABOLIC [id number] 09:11:00* Test Item Value Reference Range Comments SODIUM (BEAKER) (test iyxn=436) 137 meq/L 136-145 POTASSIUM (BEAKER) (test thyc=275) 4.1 meq/L 3.5-5.1 CHLORIDE (BEAKER) (test nbxa=453) 104 meq/L 98-107 CO2 (BEAKER) (test dzun=967) 23 meq/L 22-29 BLOOD UREA NITROGEN (BEAKER) (test knyo=659) 26 mg/dL 7-21 CREATININE (BEAKER) (test cqzr=512) 1.71 mg/dL 0.57-1.25 GLUCOSE RANDOM (BEAKER) (test bjpo=574) 85 mg/dL 70-105 CALCIUM (BEAKER) (test doka=177) 8.8 mg/dL 8.4-10.2 EGFR (BEAKER) (test lfel=8316) 46 mL/min/1.73 sq m ESTIMATED GFR IS NOT ACCURATE CREATININE CLEARANCE IN PREDICTING GLOMERULAR FILTRATION RATE. ESTIMATED GFR IS NOT APPLICABLE FOR DIALYSIS PATIENTS. Specimen markedly ictericCALCIUM, [id number] 08:49:00* Test Item Value Reference Range Comments CALCIUM IONIZED (BEAKER) (test hfgn=637) 1.08 mmol/L 1.12-1.27 PH, BLOOD (BEAKER) (test rabc=6868) 7.49 BLOOD GAS, [id number] 08:48:00* Test Item Value Reference Range Comments PH ARTERIAL (BEAKER) (test jdtk=823) 7.49 7.35-7.45 PCO2 ARTERIAL (BEAKER) (test cssz=906) 31 mmHg 35-45 PO2 ARTERIAL (BEAKER) (test vqow=777) 142 mmHg 80-90 O2 SATURATION ARTERIAL (BEAKER) (test zdhy=050) 99.0 % 96.0-97.0 HCO3 ARTERIAL (BEAKER) (test poee=233) 24 mmol/L 21-29 BASE EXCESS ARTERIAL (BEAKER) (test pkyr=802) 0.7 mmol/L -2.0-3.0 PATIENT TEMPERATURE (BEAKER) (test yheb=7231) 37.1 C FIO2 (BEAKER) (test msra=2279) 40.0 % OXYGEN SATURATION, [id number] 06:46:00* Test Item Value Reference Range Comments O2 SATURATION (MEASURED) (BEAKER) (test tndb=3047) 81.1 % POCT-GLUCOSE [id number] 06:37:00* Test Item Value Reference Range Comments POC-GLUCOSE METER (BEAKER) (test gbgz=1791) 92 mg/dL 70-[address] [facility] [address] [place] [address] [id number] 06:33:00* Test Item Value Reference Range Comments CALCIUM (BEAKER) (test iugb=256) 9.0 mg/dL 8.4-10.2 HEPATIC FUNCTION [id number] 06:06:00* Test Item Value Reference Range Comments TOTAL PROTEIN (BEAKER) (test naxp=821) 5.2 gm/dL 6.0-8.3 ALBUMIN (BEAKER) (test bjuj=0374) 2.6 g/dL 3.5-5.0 BILIRUBIN TOTAL (BEAKER) (test xjde=867) 23.5 mg/dL 0.2-1.2 BILIRUBIN DIRECT (BEAKER) (test gcio=261) 19.6 mg/dL 0.1-0.5 ALKALINE PHOSPHATASE (BEAKER) (test iatc=167) 97 U/L 40-150 AST (SGOT) (BEAKER) (test iwun=975) 43 U/L 5-34 ALT (SGPT) (BEAKER) (test xnyo=373) 17 U/L 6-55 Specimen markedly [id number] 06:03:00* Test Item Value Reference Range Comments POTASSIUM (BEAKER) (test fnyo=200) 3.9 meq/L 3.5-5.1 [id number] 06:02:00* Test Item Value Reference Range Comments PARTIAL THROMBOPLASTIN TIME (BEAKER) (test mmwf=613) 76.4 seconds 22.5-36.0 LACTIC ACID, ARTERIAL, WHOLE [id number] 05:39:00* Test Item Value Reference Range Comments LACTATE BLOOD ARTERIAL (2) (BEAKER) (test dyai=2066) 0.8 mmol/L 0.5-2.2 Effective 10/28/2015: Units/Reference Range ChangeNew: 0.5-2.2 mmol/L Previous: 5 -20 mg/dLSpecimen markedly [id number] 05:38:00* Test Item Value Reference Range Comments FIBRINOGEN LEVEL (BEAKER) (test wgjh=881) 394 mg/dl 225-434 [id number] 01:53:00* Test Item Value Reference Range Comments POTASSIUM (BEAKER) (test mmft=467) 3.8 meq/L 3.5-5.1 CALCIUM, [id number] 01:48:00* Test Item Value Reference Range Comments CALCIUM IONIZED (BEAKER) (test dqrp=289) 1.11 mmol/L 1.12-1.27 PH, BLOOD (BEAKER) (test xpwc=0099) 7.50 POCT-GLUCOSE [id number] 01:30:00* Test Item Value Reference Range Comments POC-GLUCOSE METER (BEAKER) (test gwym=7406) 84 mg/dL 70-110 TESTED AT [address] [address] [id number] 20:51:00* Test Item Value Reference Range Comments PHOSPHORUS (BEAKER) (test blde=574) 3.1 mg/dL 2.3-4.7 [id number] 20:40:00* Test Item Value Reference Range Comments POTASSIUM (BEAKER) (test ynxn=206) 3.8 meq/L 3.5-5.1 [id number] 20:40:00* Test Item Value Reference Range Comments MAGNESIUM (BEAKER) (test lrta=682) 1.8 mg/dL 1.6-2.6 [id number] 20:40:00* Test Item Value Reference Range Comments SODIUM (BEAKER) (test zxew=985) 137 meq/L 136-145 POCT-GLUCOSE [id number] 17:19:00* Test Item Value Reference Range Comments POC-GLUCOSE METER (BEAKER) (test jpiz=7076) 78 mg/dL 70-110 TESTED AT [address] [address] VANCOMYCIN LEVEL, [id number] 17:08:00* Test Item Value Reference Range Comments VANCOMYCIN TROUGH (BEAKER) (test wvja=257) 15.2 ug/mL 10.0-20.0 Please obtain vancomycin trough 30 min prior to scheduled dose.[id number]- [id number] 16:53:00* Test Item Value Reference Range Comments POTASSIUM (BEAKER) (test exmz=923) 3.8 meq/L 3.5-5.1 CALCIUM, [id number] 16:40:00* Test Item Value Reference Range Comments CALCIUM IONIZED (BEAKER) (test goux=421) 1.19 mmol/L 1.12-1.27 PH, BLOOD (BEAKER) (test eguj=9167) 7.46 [id number] 12:26:00* Test Item Value Reference Range Comments POTASSIUM (BEAKER) (test ddnq=117) 3.9 meq/L 3.5-5.1 CBC W/PLT COUNT & AUTO [id number] 11:46:00* Test Item Value Reference Range Comments WHITE BLOOD CELL COUNT (BEAKER) (test miwq=466) 25.0 K/ L 4.0-10.0 RED BLOOD CELL COUNT (BEAKER) (test uafh=835) 3.07 M/ L 4.20-5.80 HEMOGLOBIN (BEAKER) (test tgme=596) 9.2 GM/DL 13.0-16.8 HEMATOCRIT (BEAKER) (test meks=151) 27.6 % 40.0-50.0 MEAN CORPUSCULAR VOLUME (BEAKER) (test cjwn=206) 89.9 fL 82.0-98.0 MEAN CORPUSCULAR HEMOGLOBIN (BEAKER) (test jwhi=538) 30.0 pg 27.0-33.0 MEAN CORPUSCULAR HEMOGLOBIN CONC (BEAKER) (test eadh=957) 33.4 GM/DL 32.0- 36.0 RED CELL DISTRIBUTION WIDTH (BEAKER) (test mzbj=212) 24.2 % 10.3-14.2 PLATELET COUNT (BEAKER) (test qohc=450) 90 K/CU MM 150-430 MEAN PLATELET VOLUME (BEAKER) (test ohrn=201) 7.7 fL 6.5-10.5 NUCLEATED RED BLOOD CELLS (BEAKER) (test bawk=599) 3 /100 WBC 0-0 NEUTROPHILS RELATIVE PERCENT (BEAKER) (test eapp=810) 91 % LYMPHOCYTES RELATIVE PERCENT (BEAKER) (test wida=976) 3 % MONOCYTES RELATIVE PERCENT (BEAKER) (test siql=397) 6 % EOSINOPHILS RELATIVE PERCENT (BEAKER) (test jxlf=615) 0 % BASOPHILS RELATIVE PERCENT (BEAKER) (test uwpd=836) 0 % NEUTROPHILS ABSOLUTE COUNT (BEAKER) (test zgxu=792) 22.70 K/ L 1.80-8.00 LYMPHOCYTES ABSOLUTE COUNT (BEAKER) (test yuqe=861) 0.67 K/ L 1.48-4.50 MONOCYTES ABSOLUTE COUNT (BEAKER) (test joeo=199) 1.58 K/ L 0.00-1.30 EOSINOPHILS ABSOLUTE COUNT (BEAKER) (test ziby=211) 0.04 K/ L 0.00-0.50 BASOPHILS ABSOLUTE COUNT (BEAKER) (test kdyq=227) 0.01 K/ L 0.00-0.20 0.000.700.000.000.790.000.000.000.00(MANUAL DIFFERENTIAL)2016-12-31 11:46:00* Test Item Value Reference Range Comments TOTAL COUNTED (BEAKER) (test usqa=8944) WBC MORPHOLOGY (BEAKER) (test lzfj=999) Normal PLT MORPHOLOGY (BEAKER) (test gkuf=890) Normal SCHISTOCYTES (BEAKER) (test bhhw=192) 1+ few ANISOCYTOSIS (BEAKER) (test lvtj=503) 2+ moderate POLYCHROMATOPHILLIC RBCS(BEAKER) (test ctjc=378) 2+ moderate POCT-GLUCOSE [id number] 11:21:00* Test Item Value Reference Range Comments POC-GLUCOSE METER (BEAKER) (test rulb=8200) 92 mg/dL 70-[address] [facility] [address] [facility] [address] [id number] 08:50:00* Test Item Value Reference Range Comments POTASSIUM (BEAKER) (test rezf=190) 3.9 meq/L 3.5-5.1 [id number] 08:50:00* Test Item Value Reference Range Comments MAGNESIUM (BEAKER) (test jflt=423) 1.8 mg/dL 1.6-2.6 [id number] 08:50:00* Test Item Value Reference Range Comments PHOSPHORUS (BEAKER) (test efgs=870) 3.6 mg/dL 2.3-4.7 [id number] 08:50:00* Test Item Value Reference Range Comments SODIUM (BEAKER) (test vtyx=270) 138 meq/L 136-145 CALCIUM, [id number] 08:19:00* Test Item Value Reference Range Comments CALCIUM IONIZED (BEAKER) (test hltu=980) 1.20 mmol/L 1.12-1.27 PH, BLOOD (BEAKER) (test jtia=3678) 7.46 HEPATIC FUNCTION [id number] 06:02:00* Test Item Value Reference Range Comments TOTAL PROTEIN (BEAKER) (test mnpx=973) 5.3 gm/dL 6.0-8.3 ALBUMIN (BEAKER) (test whos=5424) 2.8 g/dL 3.5-5.0 BILIRUBIN TOTAL (BEAKER) (test sbmr=473) 24.2 mg/dL 0.2-1.2 BILIRUBIN DIRECT (BEAKER) (test saxp=825) 20.0 mg/dL 0.1-0.5 ALKALINE PHOSPHATASE (BEAKER) (test qmdm=279) 89 U/L 40-150 AST (SGOT) (BEAKER) (test kzla=656) 44 U/L 5-34 ALT (SGPT) (BEAKER) (test bjtq=952) 13 U/L 6-55 Specimen markedly ictericPOCT-GLUCOSE [id number] 05:54:00* Test Item Value Reference Range Comments POC-GLUCOSE METER (BEAKER) (test axrf=3548) 115 mg/dL 70-[address] [facility] [address] [facility] [address] [id number] 05:39:00* Test Item Value Reference Range Comments POTASSIUM (BEAKER) (test dhlm=968) 4.1 meq/L 3.5-5.1 [id number] 05:39:00* Test Item Value Reference Range Comments CALCIUM (BEAKER) (test zpxq=991) 9.5 mg/dL 8.4-10.2 [id number] 05:25:00* Test Item Value Reference Range Comments FIBRINOGEN LEVEL (BEAKER) (test egfd=347) 373 mg/dl 225-434 4 hours after the start of continuous infusion and 4 hours after any rate [id number] 05:17:00* Test Item Value Reference Range Comments PARTIAL THROMBOPLASTIN TIME (BEAKER) (test oysa=710) 75.5 seconds 22.5-36.0 4 hours after the start of continuous infusion and 4 hours after any rate changeLACTIC ACID, ARTERIAL, WHOLE [id number] 05:12:00* Test Item Value Reference Range Comments LACTATE BLOOD ARTERIAL (2) (BEAKER) (test aejn=5710) 0.8 mmol/L 0.5-2.2 Effective 10/28/2015: Units/Reference Range ChangeNew: 0.5-2.2 mmol/L Previous: 5 -20 mg/dLSpecimen markedly ictericBLOOD GAS, [id number] 04:41:00* Test Item Value Reference Range Comments PH ARTERIAL (BEAKER) (test ngvy=494) 7.45 7.35-7.45 PCO2 ARTERIAL (BEAKER) (test ggfm=707) 36 mmHg 35-45 PO2 ARTERIAL (BEAKER) (test cazw=042) 171 mmHg 80-90 O2 SATURATION ARTERIAL (BEAKER) (test wtjb=283) 99.2 % 96.0-97.0 HCO3 ARTERIAL (BEAKER) (test nurq=006) 25 mmol/L 21-29 BASE EXCESS ARTERIAL (BEAKER) (test ixlz=868) 0.9 mmol/L -2.0-3.0 PATIENT TEMPERATURE (BEAKER) (test znpm=3578) 37.0 C FIO2 (BEAKER) (test xgle=4731) 40.0 % OXYGEN SATURATION, [id number] 04:38:00* Test Item Value Reference Range Comments O2 SATURATION (MEASURED) (BEAKER) (test aopm=0474) 69.7 % [id number] 01:16:00* Test Item Value Reference Range Comments POTASSIUM (BEAKER) (test ycrj=851) 4.3 meq/L 3.5-5.1 CALCIUM, [id number] 01:15:00* Test Item Value Reference Range Comments CALCIUM IONIZED (BEAKER) (test aenq=741) 1.06 mmol/L 1.12-1.27 PH, BLOOD (BEAKER) (test eheu=4255) 7.47 HEMOGLOBIN AND [id number] 01:13:00* Test Item Value Reference Range Comments HEMOGLOBIN (BEAKER) (test pqzo=911) 9.0 GM/DL 13.0-16.8 HEMATOCRIT (BEAKER) (test oooj=439) 26.8 % 40.0-50.0 ANAEROBIC [id number] 00:42:00* Test Item Value Reference Range Comments CULTURE (BEAKER) (test vqxm=2375) No anaerobes isolated [id number] 20:42:00* Test Item Value Reference Range Comments MAGNESIUM (BEAKER) (test depg=105) 2.3 mg/dL 1.6-2.6 [id number] 20:42:00* Test Item Value Reference Range Comments PHOSPHORUS (BEAKER) (test ubqt=043) 4.0 mg/dL 2.3-4.7 [id number] 20:42:00* Test Item Value Reference Range Comments SODIUM (BEAKER) (test dwlu=014) 139 meq/L 136-145 [id number] 20:42:00* Test Item Value Reference Range Comments POTASSIUM (BEAKER) (test nibq=697) 4.3 meq/L 3.5-5.1 LACTIC ACID, ARTERIAL, WHOLE [id number] 18:55:00* Test Item Value Reference Range Comments LACTATE BLOOD ARTERIAL (2) (BEAKER) (test bjhw=2059) 0.7 mmol/L 0.5-2.2 Effective 10/28/2015: Units/Reference Range ChangeNew: 0.5-2.2 mmol/L Previous: 5 -20 mg/dLSpecimen markedly ictericPT/[id number] 18:49:00* Test Item Value Reference Range Comments PROTIME (BEAKER) (test mkkm=594) 21.6 seconds 11.7-14.7 INR (BEAKER) (test qljb=471) 1.9 <=5.9 PARTIAL THROMBOPLASTIN TIME (BEAKER) (test zkzg=927) 79.2 seconds 22.5-36.0 RECOMMENDED COUMADIN/WARFARIN INR THERAPY RANGESSTANDARD DOSE: 2.0 - 3.0 Includes: PROPHYLAXIS for venous thrombosis, systemic embolization; TREATMENT for venous thrombosis and/or pulmonary embolus.HIGH RISK: Target INR is 2.5-3.5 for patients with mechanical heart valves.CBC (HEMOGRAM ONLY)2016-12-30 18:45:00 * Test Item Value Reference Range Comments WHITE BLOOD CELL COUNT (BEAKER) (test nchi=741) 28.2 K/ L 4.0-10.0 RED BLOOD CELL COUNT (BEAKER) (test alwk=842) 2.63 M/ L 4.20-5.80 HEMOGLOBIN (BEAKER) (test rxxu=148) 7.9 GM/DL 13.0-16.8 HEMATOCRIT (BEAKER) (test yqow=254) 23.6 % 40.0-50.0 MEAN CORPUSCULAR VOLUME (BEAKER) (test aewg=565) 89.5 fL 82.0-98.0 MEAN CORPUSCULAR HEMOGLOBIN (BEAKER) (test rhhn=661) 29.9 pg 27.0-33.0 MEAN CORPUSCULAR HEMOGLOBIN CONC (BEAKER) (test arpi=619) 33.4 GM/DL 32.0- 36.0 RED CELL DISTRIBUTION WIDTH (BEAKER) (test ftzv=027) 23.7 % 10.3-14.2 PLATELET COUNT (BEAKER) (test bhqm=220) 105 K/CU MM 150-430 MEAN PLATELET VOLUME (BEAKER) (test vxdg=344) 6.5 fL 6.5-10.5 NUCLEATED RED BLOOD CELLS (BEAKER) (test ebcp=493) 5 /100 WBC 0-0 0.000.670.000.000.690.000.000.000.60NRDQ1901-18-98 16:34:00* Test Item Value Reference Range Comments PARTIAL THROMBOPLASTIN TIME (BEAKER) (test gffz=325) 76.8 seconds 22.5-36.0 [id number] 16:14:00* Test Item Value Reference Range Comments POTASSIUM (BEAKER) (test tvxv=004) 4.3 meq/L 3.5-5.1 [id number] 16:13:00* Test Item Value Reference Range Comments FIBRINOGEN LEVEL (BEAKER) (test lvzr=251) 327 mg/dl 225-434 EQUAL MIX, NORMAL [id number] 16:12:00* Test Item Value Reference Range Comments PROTIME (BEAKER) (test izif=087) 20.2 seconds 11.7-14.7 PARTIAL THROMBOPLASTIN TIME (BEAKER) (test arnj=515) 64.7 seconds 22.5-36.0 PT 1/1 MIX (BEAKER) (test owpb=3370) 16.4 SECS 11.7-14.7 PTT 1/1 MIX (BEAKER) (test svxg=2101) 55.4 SECS 22.5-36.0 PLATELET [id number] 16:03:00* Test Item Value Reference Range Comments PLATELET COUNT (BEAKER) (test gtfq=106) 115 K/CU MM 150-430 CALCIUM, [id number] 15:52:00* Test Item Value Reference Range Comments CALCIUM IONIZED (BEAKER) (test smel=970) 1.08 mmol/L 1.12-1.27 PH, BLOOD (BEAKER) (test flgr=8982) 7.43 DILUTE NATHEN VIPER VENOM (DRVV)2016-12-30 14:40:00* Test Item Value Reference Range Comments PROTIME (BEAKER) (test teos=436) 19.2 seconds 11.7-14.7 INR (BEAKER) (test wnot=769) 1.6 <=5.9 PARTIAL THROMBOPLASTIN TIME (BEAKER) (test mpbz=618) 42.9 seconds 22.5-36.0 DRVV INTERPRETATION (BEAKER) (test qsdv=7212) DRVV did not correct with 1:1 mix CQUD-RYIAPRSPLWU-226 (BEAKER) (test yrqf=0201) Danette Mills MD ( electronic signature) DRVV SCREEN RATIO (BEAKER) (test psjw=3114) 1.54 <1.20 DRVV CONFIRM RATIO (test lxtb=9988) 1.19 DRVV NORMALIZED RATIO (test wjlq=0815) 1.29 <1.20 Hexagonal phospholipid study also positive; results are consistent with presence of lupus anticoagulant.Effective 10/29/2013: Test Method ChangeDRVV Screen Ratio, DRVV 1/1 Screen Ratio, DRVV Confirm Ratio,DRVV Normalized Ratio Reference Range: <1.2Protime Reference Range ChangeNew: 11.7-14.7 Previous: 9.8 -12.0PTT Reference Range ChangeNew: 22.5-36.0 Previous: 25.8-34.5EQUAL MIX, NORMAL [id number] 13:14:00* Test Item Value Reference Range Comments PROTIME (BEAKER) (test hzfz=493) 19.2 seconds 11.7-14.7 PARTIAL THROMBOPLASTIN TIME (BEAKER) (test tnis=466) 42.9 seconds 22.5-36.0 PT 1/1 MIX (BEAKER) (test zpvq=4500) 14.7 SECS 11.7-14.7 PTT 1/1 MIX (BEAKER) (test swnr=1136) 37.5 SECS 22.5-36.0 THROMBIN [id number] 13:08:00* Test Item Value Reference Range Comments THROMBIN TIME (BEAKER) (test jsnl=531) 13.7 secs 13.8-20.0 HEXAGONAL [id number] 13:08:00* Test Item Value Reference Range Comments HEXAGONAL PHOSPHOLIPID (BEAKER) (test iuxi=5773) Positive VANCOMYCIN LEVEL, [id number] 12:44:00* Test Item Value Reference Range Comments VANCOMYCIN RANDOM (BEAKER) (test recs=147) 23.2 ug/mL Reference Range: No NormalsLACTIC ACID, ARTERIAL, WHOLE [id number] 12:33:00 * Test Item Value Reference Range Comments LACTATE BLOOD ARTERIAL (2) (BEAKER) (test roqg=8789) 0.8 mmol/L 0.5-2.2 Effective 10/28/2015: Units/Reference Range ChangeNew: 0.5-2.2 mmol/L Previous: 5 -20 mg/dLSpecimen markedly [id number] 12:32:00* Test Item Value Reference Range Comments POTASSIUM (BEAKER) (test umwy=670) 4.3 meq/L 3.5-5.1 HEPARIN [id number] 12:32:00* Test Item Value Reference Range Comments HEPARIN ANTIBODY (BEAKER) (test lkpp=822) Negative Negative HEPARIN ANTIBODY OD (BEAKER) (test qaje=1374) 0.143 <0.400 4T TOTAL SCORE (BEAKER) (test styl=1862) 4 Probability of HIT based on scoring system: 6-8=High probability; 4-5= intermediate probability; 0-3=low [id number] 12:31:00* Test Item Value Reference Range Comments PARTIAL THROMBOPLASTIN TIME (BEAKER) (test pxpk=724) 64.1 seconds 22.5-36.0 4 hours after the start of continuous infusion and 4 hours after any rate [id number] 12:30:00* Test Item Value Reference Range Comments FIBRINOGEN LEVEL (BEAKER) (test dgki=656) 297 mg/dl 225-434 4 hours after the start of continuous infusion and 4 hours after any rate changePERIPHERAL BLOOD SMEAR - HOLD [id number] 10:47:00* Test Item Value Reference Range Comments PERIPHERAL SMEAR SAVE (BEAKER) (test smyq=1140) saved SURGICALLY OBTAINED CULTURE + GRAM [id number] 09:07:00* Test Item Value Reference Range Comments CULTURE (BEAKER) (test jopl=4182) METHICILLIN RESISTANT STAPHYLOCOCCUS AUREUS 2+ Methicillin resistant Staphylococcus aureus Ampicillin (test code=26) Ciprofloxacin (test code=7) Clindamycin (test code=10) Daptomycin (test code=59) Erythromycin (test code=4) Gentamicin (test code=18) Gentamicin High Level Synergy (test zkqg=134) Levofloxacin (test code=22) Linezolid (test code=40) Moxifloxacin (test code=36) Nitrofurantoin (test code=23) Oxacillin (test code=14) Rifampin (test code=43) Streptomycin High Level Synergy (test dupe=430) Tetracycline (test code=2) Tigecycline (test dbmy=922) Trimethoprim + Sulfamethoxazole (test code=47) Vancomycin (test code=13) GRAM STAIN RESULT (BEAKER) (test zqti=2946) 2+ WBCs GRAM STAIN RESULT (BEAKER) (test bwyd=993154) 2+ gram positive cocci in pairs and clusters [id number] 08:02:00* Test Item Value Reference Range Comments POTASSIUM (BEAKER) (test ihlh=236) 4.7 meq/L 3.5-5.1 [id number] 08:02:00* Test Item Value Reference Range Comments MAGNESIUM (BEAKER) (test ailm=367) 2.4 mg/dL 1.6-2.6 [id number] 08:02:00* Test Item Value Reference Range Comments PHOSPHORUS (BEAKER) (test atxk=047) 4.6 mg/dL 2.3-4.7 [id number] 08:02:00* Test Item Value Reference Range Comments SODIUM (BEAKER) (test wfja=694) 140 meq/L 136-145 [id number] 07:55:00* Test Item Value Reference Range Comments FIBRINOGEN LEVEL (BEAKER) (test wulj=474) 252 mg/dl 225-434 Draw baseline aPTT prior to infusionPT/[id number] 07:50:00* Test Item Value Reference Range Comments PROTIME (BEAKER) (test skob=166) 18.5 seconds 11.7-14.7 INR (BEAKER) (test yuuq=794) 1.5 <=5.9 PARTIAL THROMBOPLASTIN TIME (BEAKER) (test tfvq=865) 47.3 seconds 22.5-36.0 RECOMMENDED COUMADIN/WARFARIN INR THERAPY RANGESSTANDARD DOSE: 2.0 - 3.0 Includes: PROPHYLAXIS for venous thrombosis, systemic embolization; TREATMENT for venous thrombosis and/or pulmonary embolus.HIGH RISK: Target INR is 2.5-3.5 for patients with mechanical heart valves.Draw baseline aPTT prior to infusionDraw baseline aPTT prior to infusionCBC (HEMOGRAM ONLY)2016-12-30 07:45: 00* Test Item Value Reference Range Comments WHITE BLOOD CELL COUNT (BEAKER) (test dxqa=164) 29.2 K/ L 4.0-10.0 RED BLOOD CELL COUNT (BEAKER) (test jjjo=647) 2.87 M/ L 4.20-5.80 HEMOGLOBIN (BEAKER) (test qjfe=905) 8.5 GM/DL 13.0-16.8 HEMATOCRIT (BEAKER) (test wagy=927) 25.7 % 40.0-50.0 MEAN CORPUSCULAR VOLUME (BEAKER) (test woxq=094) 89.6 fL 82.0-98.0 MEAN CORPUSCULAR HEMOGLOBIN (BEAKER) (test hpuf=860) 29.8 pg 27.0-33.0 MEAN CORPUSCULAR HEMOGLOBIN CONC (BEAKER) (test htih=543) 33.2 GM/DL 32.0- 36.0 RED CELL DISTRIBUTION WIDTH (BEAKER) (test wric=565) 24.0 % 10.3-14.2 PLATELET COUNT (BEAKER) (test iktt=804) 46 K/CU MM 150-430 MEAN PLATELET VOLUME (BEAKER) (test kwka=364) 11.1 fL 6.5-10.5 NUCLEATED RED BLOOD CELLS (BEAKER) (test fhbq=621) 5 /100 WBC 0-0 0.000.650.530.000.700.000.000.000.27BFBCIQCET7807-30-87 07:41:00* Test Item Value Reference Range Comments POTASSIUM (BEAKER) (test wkvj=732) 4.6 meq/L 3.5-5.1 [id number] 07:41:00* Test Item Value Reference Range Comments MAGNESIUM (BEAKER) (test dcdu=678) 2.1 mg/dL 1.6-2.6 [id number] 07:41:00* Test Item Value Reference Range Comments PHOSPHORUS (BEAKER) (test lswo=197) 4.7 mg/dL 2.3-4.7 [id number] 07:41:00* Test Item Value Reference Range Comments CALCIUM (BEAKER) (test ojsz=898) 8.7 mg/dL 8.4-10.2 CALCIUM, [id number] 07:40:00* Test Item Value Reference Range Comments CALCIUM IONIZED (BEAKER) (test jgce=599) 1.16 mmol/L 1.12-1.27 PH, BLOOD (BEAKER) (test ffjo=6594) 7.41 CBC W/PLT COUNT & AUTO [id number] 07:35:00* Test Item Value Reference Range Comments WHITE BLOOD CELL COUNT (BEAKER) (test fiao=946) 30.8 K/ L 4.0-10.0 RED BLOOD CELL COUNT (BEAKER) (test jehx=259) 2.84 M/ L 4.20-5.80 HEMOGLOBIN (BEAKER) (test fttv=469) 9.1 GM/DL 13.0-16.8 HEMATOCRIT (BEAKER) (test onso=095) 25.6 % 40.0-50.0 MEAN CORPUSCULAR VOLUME (BEAKER) (test zgtl=995) 90.0 fL 82.0-98.0 MEAN CORPUSCULAR HEMOGLOBIN (BEAKER) (test aubu=631) 31.9 pg 27.0-33.0 MEAN CORPUSCULAR HEMOGLOBIN CONC (BEAKER) (test kyxb=875) 35.4 GM/DL 32.0- 36.0 RED CELL DISTRIBUTION WIDTH (BEAKER) (test ogzj=023) 24.6 % 10.3-14.2 PLATELET COUNT (BEAKER) (test uhtl=859) 48 K/CU MM 150-430 MEAN PLATELET VOLUME (BEAKER) (test fvye=228) 10.5 fL 6.5-10.5 NUCLEATED RED BLOOD CELLS (BEAKER) (test pjjh=218) 7 /100 WBC 0-0 NEUTROPHILS RELATIVE PERCENT (BEAKER) (test oiej=234) 89 % LYMPHOCYTES RELATIVE PERCENT (BEAKER) (test efbh=147) 2 % MONOCYTES RELATIVE PERCENT (BEAKER) (test wyke=824) 8 % EOSINOPHILS RELATIVE PERCENT (BEAKER) (test aqec=976) 0 % BASOPHILS RELATIVE PERCENT (BEAKER) (test ksfp=022) 0 % NEUTROPHILS ABSOLUTE COUNT (BEAKER) (test skhr=476) 27.50 K/ L 1.80-8.00 LYMPHOCYTES ABSOLUTE COUNT (BEAKER) (test ontd=299) 0.75 K/ L 1.48-4.50 MONOCYTES ABSOLUTE COUNT (BEAKER) (test kttm=653) 2.48 K/ L 0.00-1.30 EOSINOPHILS ABSOLUTE COUNT (BEAKER) (test grob=222) 0.05 K/ L 0.00-0.50 BASOPHILS ABSOLUTE COUNT (BEAKER) (test cotd=372) 0.01 K/ L 0.00-0.20 0.000.750.520.000.800.000.000.000.000.000.000.530.640.000.670.000.000.000.00( MANUAL DIFFERENTIAL)2016-12-30 07:35:00* Test Item Value Reference Range Comments TOTAL COUNTED (BEAKER) (test umbh=8295) WBC MORPHOLOGY (BEAKER) (test seev=601) Normal PLT MORPHOLOGY (BEAKER) (test lapx=084) Normal SCHISTOCYTES (BEAKER) (test jpam=927) 1+ few POLYCHROMATOPHILLIC RBCS(BEAKER) (test aoep=959) 1+ few LACTIC ACID, ARTERIAL, WHOLE [id number] 07:06:00* Test Item Value Reference Range Comments LACTATE BLOOD ARTERIAL (2) (BEAKER) (test hxox=6874) 0.8 mmol/L 0.5-2.2 Effective 10/28/2015: Units/Reference Range ChangeNew: 0.5-2.2 mmol/L Previous: 5 -20 mg/dLSpecimen markedly ictericCALCIUM, [id number] 06:41:00* Test Item Value Reference Range Comments CALCIUM IONIZED (BEAKER) (test jxvx=022) 1.00 mmol/L 1.12-1.27 PH, BLOOD (BEAKER) (test giap=2229) 7.43 [id number] 04:48:00* Test Item Value Reference Range Comments PHOSPHORUS (BEAKER) (test axim=662) 3.5 mg/dL 2.3-4.7 BASIC METABOLIC [id number] 04:48:00* Test Item Value Reference Range Comments SODIUM (BEAKER) (test biul=753) 141 meq/L 136-145 POTASSIUM (BEAKER) (test tnuf=736) 4.5 meq/L 3.5-5.1 CHLORIDE (BEAKER) (test xwwn=014) 107 meq/L 98-107 CO2 (BEAKER) (test rkgp=235) 22 meq/L 22-29 BLOOD UREA NITROGEN (BEAKER) (test ikgc=745) 36 mg/dL 7-21 CREATININE (BEAKER) (test hyyr=235) 2.93 mg/dL 0.57-1.25 GLUCOSE RANDOM (BEAKER) (test ifyf=381) 110 mg/dL 70-105 CALCIUM (BEAKER) (test hibb=798) 8.8 mg/dL 8.4-10.2 EGFR (BEAKER) (test rssx=9113) 25 mL/min/1.73 sq m ESTIMATED GFR IS NOT ACCURATE CREATININE CLEARANCE IN PREDICTING GLOMERULAR FILTRATION RATE. ESTIMATED GFR IS NOT APPLICABLE FOR DIALYSIS PATIENTS. Specimen markedly ictericHEPATIC FUNCTION [id number] 04:48:00* Test Item Value Reference Range Comments TOTAL PROTEIN (BEAKER) (test nnjh=576) 4.8 gm/dL 6.0-8.3 ALBUMIN (BEAKER) (test swvr=1852) 2.7 g/dL 3.5-5.0 BILIRUBIN TOTAL (BEAKER) (test ydpp=926) 25.4 mg/dL 0.2-1.2 BILIRUBIN DIRECT (BEAKER) (test pqpl=912) 20.3 mg/dL 0.1-0.5 ALKALINE PHOSPHATASE (BEAKER) (test bviv=481) 89 U/L 40-150 AST (SGOT) (BEAKER) (test bjss=530) 53 U/L 5-34 ALT (SGPT) (BEAKER) (test yfhi=872) 16 U/L 6-55 Specimen markedly ictericBLOOD GAS, [id number] 04:21:00* Test Item Value Reference Range Comments PH ARTERIAL (BEAKER) (test vhaj=086) 7.38 7.35-7.45 PCO2 ARTERIAL (BEAKER) (test jhju=348) 42 mmHg 35-45 PO2 ARTERIAL (BEAKER) (test yumf=475) 203 mmHg 80-90 O2 SATURATION ARTERIAL (BEAKER) (test gigy=963) 99.4 % 96.0-97.0 HCO3 ARTERIAL (BEAKER) (test gfhp=922) 24 mmol/L 21-29 BASE EXCESS ARTERIAL (BEAKER) (test bkqn=426) -1.1 mmol/L -2.0-3.0 PATIENT TEMPERATURE (BEAKER) (test pmdc=8595) 37.1 C FIO2 (BEAKER) (test khzq=6274) 40.0 % [id number] 04:20:00* Test Item Value Reference Range Comments FIBRINOGEN LEVEL (BEAKER) (test rtra=440) 272 mg/dl 225-434 [id number] 01:56:00* Test Item Value Reference Range Comments FIBRINOGEN LEVEL (BEAKER) (test okuk=468) 227 mg/dl 225-434 LACTIC ACID, ARTERIAL, WHOLE [id number] 01:52:00* Test Item Value Reference Range Comments LACTATE BLOOD ARTERIAL (2) (BEAKER) (test berj=6782) 0.9 mmol/L 0.5-2.2 Effective 10/28/2015: Units/Reference Range ChangeNew: 0.5-2.2 mmol/L Previous: 5 -20 mg/dLSpecimen markedly ictericCALCIUM, [id number] 01:48:00* Test Item Value Reference Range Comments CALCIUM IONIZED (BEAKER) (test odqp=323) 1.08 mmol/L 1.12-1.27 PH, BLOOD (BEAKER) (test xmzi=4282) 7.44 [id number] 20:57:00* Test Item Value Reference Range Comments FIBRINOGEN LEVEL (BEAKER) (test ruim=897) 171 mg/dl 225-434 [id number] 20:55:00* Test Item Value Reference Range Comments MAGNESIUM (BEAKER) (test gqzk=098) 1.3 mg/dL 1.6-2.6 Specimen slightly hemolyzed CHECK K every hour until CRRT [id number] 20:55:00* Test Item Value Reference Range Comments PHOSPHORUS (BEAKER) (test vewk=285) 2.6 mg/dL 2.3-4.7 Specimen slightly hemolyzed CHECK K every hour until CRRT [id number] 20:55:00* Test Item Value Reference Range Comments POTASSIUM (BEAKER) (test xuxl=295) 3.1 meq/L 3.5-5.1 Specimen slightly hemolyzed CHECK K every hour until CRRT [id number] 20:55:00* Test Item Value Reference Range Comments SODIUM (BEAKER) (test mdky=620) 145 meq/L 136-145 CHECK K every hour until CRRT [id number] 19:05:00* Test Item Value Reference Range Comments POTASSIUM (BEAKER) (test mrxi=760) 4.6 meq/L 3.5-5.1 Specimen slightly hemolyzed CHECK K every hour until CRRT restartedCBC (HEMOGRAM ONLY)2016-12-29 17:44:00* Test Item Value Reference Range Comments WHITE BLOOD CELL COUNT (BEAKER) (test fvlv=499) 31.2 K/ L 4.0-10.0 RED BLOOD CELL COUNT (BEAKER) (test vnty=738) 3.12 M/ L 4.20-5.80 HEMOGLOBIN (BEAKER) (test ykyz=340) 9.1 GM/DL 13.0-16.8 HEMATOCRIT (BEAKER) (test kfxm=631) 28.0 % 40.0-50.0 MEAN CORPUSCULAR VOLUME (BEAKER) (test buci=134) 89.6 fL 82.0-98.0 MEAN CORPUSCULAR HEMOGLOBIN (BEAKER) (test ojcu=651) 29.1 pg 27.0-33.0 MEAN CORPUSCULAR HEMOGLOBIN CONC (BEAKER) (test ednf=987) 32.4 GM/DL 32.0- 36.0 RED CELL DISTRIBUTION WIDTH (BEAKER) (test untl=591) 23.7 % 10.3-14.2 PLATELET COUNT (BEAKER) (test ipdw=429) 62 K/CU MM 150-430 MEAN PLATELET VOLUME (BEAKER) (test zmlf=445) 9.3 fL 6.5-10.5 NUCLEATED RED BLOOD CELLS (BEAKER) (test zuep=659) 5 /100 WBC 0-0 0.000.740.000.000.780.000.000.000.00LACTIC ACID, ARTERIAL, WHOLE [id number] 17:44:00* Test Item Value Reference Range Comments LACTATE BLOOD ARTERIAL (2) (BEAKER) (test smgy=6668) 1.0 mmol/L 0.5-2.2 Effective 10/28/2015: Units/Reference Range ChangeNew: 0.5-2.2 mmol/L Previous: 5 -20 mg/dLSpecimen markedly [id number] 17:43:00* Test Item Value Reference Range Comments POTASSIUM (BEAKER) (test khnv=439) 4.3 meq/L 3.5-5.1 CHECK K every hour until CRRT restartedPT/[id number] 17:42:00* Test Item Value Reference Range Comments PROTIME (BEAKER) (test mszn=057) 18.3 seconds 11.7-14.7 INR (BEAKER) (test jczr=977) 1.5 <=5.9 PARTIAL THROMBOPLASTIN TIME (BEAKER) (test ifmj=141) 42.9 seconds 22.5-36.0 RECOMMENDED COUMADIN/WARFARIN INR THERAPY RANGESSTANDARD DOSE: 2.0 - 3.0 Includes: PROPHYLAXIS for venous thrombosis, systemic embolization; TREATMENT for venous thrombosis and/or pulmonary embolus.HIGH RISK: Target INR is 2.5-3.5 for patients with mechanical heart valves.[id number] 17:41:00* Test Item Value Reference Range Comments FIBRINOGEN LEVEL (BEAKER) (test lpgl=916) 228 mg/dl 225-434 CALCIUM, [id number] 17:11:00* Test Item Value Reference Range Comments CALCIUM IONIZED (BEAKER) (test yetf=605) 1.17 mmol/L 1.12-1.27 PH, BLOOD (BEAKER) (test rrbl=6547) 7.40 [id number] 16:11:00* Test Item Value Reference Range Comments POTASSIUM (BEAKER) (test wjva=286) 4.5 meq/L 3.5-5.1 CHECK K every hour until CRRT restartedVANCOMYCIN LEVEL, [id number] 13:36: 00* Test Item Value Reference Range Comments VANCOMYCIN TROUGH (BEAKER) (test vstz=690) 23.9 ug/mL 10.0-20.0 Please obtain trough 30 min before scheduled dosePOCT-GLUCOSE [id number] 13 :04:00* Test Item Value Reference Range Comments POC-GLUCOSE METER (BEAKER) (test mqll=8181) 118 mg/dL 70-110 [address]ED AT [address] [address] LACTIC ACID, ARTERIAL, WHOLE [id number] 12:54:00* Test Item Value Reference Range Comments LACTATE BLOOD ARTERIAL (2) (BEAKER) (test tnan=5533) 1.0 mmol/L 0.5-2.2 Effective 10/28/2015: Units/Reference Range ChangeNew: 0.5-2.2 mmol/L Previous: 5 -20 mg/dLSpecimen markedly [id number] 12:54:00* Test Item Value Reference Range Comments POTASSIUM (BEAKER) (test fhdw=836) 4.7 meq/L 3.5-5.1 [id number] 12:46:00* Test Item Value Reference Range Comments FIBRINOGEN LEVEL (BEAKER) (test bpay=100) 232 mg/dl 225-434 CBC W/PLT COUNT & AUTO [id number] 11:45:00* Test Item Value Reference Range Comments WHITE BLOOD CELL COUNT (BEAKER) (test gtqe=177) 35.4 K/ L 4.0-10.0 RED BLOOD CELL COUNT (BEAKER) (test glne=620) 3.34 M/ L 4.20-5.80 HEMOGLOBIN (BEAKER) (test tauh=342) 9.9 GM/DL 13.0-16.8 HEMATOCRIT (BEAKER) (test zhak=025) 29.9 % 40.0-50.0 MEAN CORPUSCULAR VOLUME (BEAKER) (test osmi=460) 89.4 fL 82.0-98.0 MEAN CORPUSCULAR HEMOGLOBIN (BEAKER) (test eqkw=752) 29.7 pg 27.0-33.0 MEAN CORPUSCULAR HEMOGLOBIN CONC (BEAKER) (test hukt=603) 33.2 GM/DL 32.0- 36.0 RED CELL DISTRIBUTION WIDTH (BEAKER) (test ydll=627) 23.7 % 10.3-14.2 PLATELET COUNT (BEAKER) (test yifv=306) 72 K/CU MM 150-430 MEAN PLATELET VOLUME (BEAKER) (test vxfw=210) 11.7 fL 6.5-10.5 NUCLEATED RED BLOOD CELLS (BEAKER) (test cnsm=459) 3 /100 WBC 0-0 NEUTROPHILS RELATIVE PERCENT (BEAKER) (test qmif=939) 89 % LYMPHOCYTES RELATIVE PERCENT (BEAKER) (test mryn=017) 4 % MONOCYTES RELATIVE PERCENT (BEAKER) (test vjlz=702) 6 % EOSINOPHILS RELATIVE PERCENT (BEAKER) (test bzjt=314) 1 % BASOPHILS RELATIVE PERCENT (BEAKER) (test uhtg=146) 0 % NEUTROPHILS ABSOLUTE COUNT (BEAKER) (test abqp=212) 31.60 K/ L 1.80-8.00 LYMPHOCYTES ABSOLUTE COUNT (BEAKER) (test ehmw=026) 1.36 K/ L 1.48-4.50 MONOCYTES ABSOLUTE COUNT (BEAKER) (test jkuu=013) 2.24 K/ L 0.00-1.30 EOSINOPHILS ABSOLUTE COUNT (BEAKER) (test ninb=165) 0.20 K/ L 0.00-0.50 BASOPHILS ABSOLUTE COUNT (BEAKER) (test ptwg=474) 0.04 K/ L 0.00-0.20 0.000.830.530.000.900.000.000.000.00(MANUAL DIFFERENTIAL)2016-12-29 11:45:00* Test Item Value Reference Range Comments TOTAL COUNTED (BEAKER) (test uwus=0997) WBC MORPHOLOGY (BEAKER) (test utrs=547) Normal PLT MORPHOLOGY (BEAKER) (test mlkb=831) Normal ANISOCYTOSIS (BEAKER) (test sjlm=161) 2+ moderate POLYCHROMATOPHILLIC RBCS(BEAKER) (test xidu=592) 2+ moderate CBC W/PLT COUNT & AUTO [id number] 11:41:00* Test Item Value Reference Range Comments WHITE BLOOD CELL COUNT (BEAKER) (test qdox=898) 34.6 K/ L 4.0-10.0 RED BLOOD CELL COUNT (BEAKER) (test fvpc=951) 3.42 M/ L 4.20-5.80 HEMOGLOBIN (BEAKER) (test uuvn=622) 10.1 GM/DL 13.0-16.8 HEMATOCRIT (BEAKER) (test cvin=958) 30.7 % 40.0-50.0 MEAN CORPUSCULAR VOLUME (BEAKER) (test zild=858) 89.6 fL 82.0-98.0 MEAN CORPUSCULAR HEMOGLOBIN (BEAKER) (test mnpb=504) 29.5 pg 27.0-33.0 MEAN CORPUSCULAR HEMOGLOBIN CONC (BEAKER) (test wuyd=238) 33.0 GM/DL 32.0- 36.0 RED CELL DISTRIBUTION WIDTH (BEAKER) (test hlay=134) 23.8 % 10.3-14.2 PLATELET COUNT (BEAKER) (test sbwj=941) 72 K/CU MM 150-430 MEAN PLATELET VOLUME (BEAKER) (test twns=501) 8.5 fL 6.5-10.5 NUCLEATED RED BLOOD CELLS (BEAKER) (test mmjj=878) 3 /100 WBC 0-0 NEUTROPHILS RELATIVE PERCENT (BEAKER) (test zryl=603) 91 % LYMPHOCYTES RELATIVE PERCENT (BEAKER) (test lpmj=598) 3 % MONOCYTES RELATIVE PERCENT (BEAKER) (test qsvl=701) 5 % EOSINOPHILS RELATIVE PERCENT (BEAKER) (test rgdg=142) 0 % BASOPHILS RELATIVE PERCENT (BEAKER) (test vtur=651) 0 % NEUTROPHILS ABSOLUTE COUNT (BEAKER) (test togr=768) 31.60 K/ L 1.80-8.00 LYMPHOCYTES ABSOLUTE COUNT (BEAKER) (test pqur=549) 1.01 K/ L 1.48-4.50 MONOCYTES ABSOLUTE COUNT (BEAKER) (test nkjk=541) 1.78 K/ L 0.00-1.30 EOSINOPHILS ABSOLUTE COUNT (BEAKER) (test bhzq=808) 0.09 K/ L 0.00-0.50 BASOPHILS ABSOLUTE COUNT (BEAKER) (test maqz=380) 0.12 K/ L 0.00-0.20 0.000.850.000.000.880.000.000.000.00(MANUAL DIFFERENTIAL)2016-12-29 11:41:00* Test Item Value Reference Range Comments TOTAL COUNTED (BEAKER) (test ihpf=8343) WBC MORPHOLOGY (BEAKER) (test volc=402) Normal PLT MORPHOLOGY (BEAKER) (test aimm=719) Normal ANISOCYTOSIS (BEAKER) (test hvqi=089) 2+ moderate POLYCHROMATOPHILLIC RBCS(BEAKER) (test jsiy=377) 2+ moderate CBC (HEMOGRAM ONLY)2016-12-29 11:23:00* Test Item Value Reference Range Comments WHITE BLOOD CELL COUNT (BEAKER) (test xnyj=247) 32.6 K/ L 4.0-10.0 RED BLOOD CELL COUNT (BEAKER) (test fvkg=200) 3.31 M/ L 4.20-5.80 HEMOGLOBIN (BEAKER) (test jiik=619) 9.7 GM/DL 13.0-16.8 HEMATOCRIT (BEAKER) (test lfdb=500) 29.6 % 40.0-50.0 MEAN CORPUSCULAR VOLUME (BEAKER) (test cffh=961) 89.7 fL 82.0-98.0 MEAN CORPUSCULAR HEMOGLOBIN (BEAKER) (test dutg=759) 29.2 pg 27.0-33.0 MEAN CORPUSCULAR HEMOGLOBIN CONC (BEAKER) (test oddq=545) 32.6 GM/DL 32.0- 36.0 RED CELL DISTRIBUTION WIDTH (BEAKER) (test axvj=913) 24.1 % 10.3-14.2 PLATELET COUNT (BEAKER) (test igod=504) 61 K/CU MM 150-430 MEAN PLATELET VOLUME (BEAKER) (test ykzi=340) 9.5 fL 6.5-10.5 NUCLEATED RED BLOOD CELLS (BEAKER) (test kceq=699) 4 /100 WBC 0-0 0.000.780.550.000.8[id number] 10:59:00* Test Item Value Reference Range Comments POTASSIUM (BEAKER) (test ragu=309) 4.6 meq/L 3.5-5.1 [id number] 10:59:00* Test Item Value Reference Range Comments MAGNESIUM (BEAKER) (test udak=906) 2.0 mg/dL 1.6-2.6 [id number] 10:59:00* Test Item Value Reference Range Comments PHOSPHORUS (BEAKER) (test lirs=882) 3.7 mg/dL 2.3-4.7 [id number] 10:59:00* Test Item Value Reference Range Comments SODIUM (BEAKER) (test txbg=489) 139 meq/L 136-145 [id number] 10:54:00* Test Item Value Reference Range Comments PROTIME (BEAKER) (test ehze=506) 18.6 seconds 11.7-14.7 INR (BEAKER) (test ygdr=889) 1.6 <=5.9 PARTIAL THROMBOPLASTIN TIME (BEAKER) (test kbti=188) 42.8 seconds 22.5-36.0 RECOMMENDED COUMADIN/WARFARIN INR THERAPY RANGESSTANDARD DOSE: 2.0 - 3.0 Includes: PROPHYLAXIS for venous thrombosis, systemic embolization; TREATMENT for venous thrombosis and/or pulmonary embolus.HIGH RISK: Target INR is 2.5-3.5 for patients with mechanical heart valves.POCT-GLUCOSE [id number] 10:50:00 * Test Item Value Reference Range Comments POC-GLUCOSE METER (BEAKER) (test ovtn=5922) 125 mg/dL 70-[address] [facility] [address] [facility] [address] CALCIUM, [id number] 10:35:00* Test Item Value Reference Range Comments CALCIUM IONIZED (BEAKER) (test mcnl=700) 1.22 mmol/L 1.12-1.27 PH, BLOOD (BEAKER) (test kdzo=4410) 7.40 BLOOD [id number] 08:55:00* Test Item Value Reference Range Comments CULTURE (BEAKER) (test wsko=3948) From Aerobic And Anaerobic Bottles Same organism has been isolated from cultures(s) of the same body site within 3 days. Repeat identification and susceptibility testing performed only after consultation with the clinical microbiology laboratory.Refer to previous culture ofMethicillin resistant Staphylococcus aureus GRAM STAIN RESULT (BEAKER) (test etyy=4804) From aerobic and anaerobic bottles : gram positive cocci in clusters [id number] 07:24:00* Test Item Value Reference Range Comments MAGNESIUM (BEAKER) (test fhfz=138) 2.2 mg/dL 1.6-2.6 Specimen slightly hemolyzed [id number] 07:24:00* Test Item Value Reference Range Comments PHOSPHORUS (BEAKER) (test wbho=138) 2.7 mg/dL 2.3-4.7 Specimen slightly hemolyzed [id number] 07:24:00* Test Item Value Reference Range Comments CALCIUM (BEAKER) (test mzik=423) 9.0 mg/dL 8.4-10.2 LACTIC ACID, ARTERIAL, WHOLE [id number] 07:11:00* Test Item Value Reference Range Comments LACTATE BLOOD ARTERIAL (2) (BEAKER) (test rpzc=6872) 0.9 mmol/L 0.5-2.2 Specimen slightly hemolyzed Effective 10/28/2015: Units/Reference Range ChangeNew: 0.5-2.2 mmol/L Previous: 5 -20 mg/dLSpecimen markedly ictericBASIC METABOLIC [id number] 05:41:00* Test Item Value Reference Range Comments SODIUM (BEAKER) (test nxsj=643) 140 meq/L 136-145 POTASSIUM (BEAKER) (test twwu=213) 4.4 meq/L 3.5-5.1 CHLORIDE (BEAKER) (test vbgd=150) 106 meq/L 98-107 CO2 (BEAKER) (test xydj=055) 23 meq/L 22-29 BLOOD UREA NITROGEN (BEAKER) (test yzpk=169) 32 mg/dL 7-21 CREATININE (BEAKER) (test fbcm=435) 2.86 mg/dL 0.57-1.25 GLUCOSE RANDOM (BEAKER) (test tjmn=982) 134 mg/dL 70-105 CALCIUM (BEAKER) (test hccd=687) 9.0 mg/dL 8.4-10.2 EGFR (BEAKER) (test yqsa=2356) 26 mL/min/1.73 sq m ESTIMATED GFR IS NOT ACCURATE CREATININE CLEARANCE IN PREDICTING GLOMERULAR FILTRATION RATE. ESTIMATED GFR IS NOT APPLICABLE FOR DIALYSIS PATIENTS. Specimen markedly ictericHEPATIC FUNCTION [id number] 05:41:00* Test Item Value Reference Range Comments TOTAL PROTEIN (BEAKER) (test ofhx=177) 5.1 gm/dL 6.0-8.3 ALBUMIN (BEAKER) (test kjwy=2410) 3.2 g/dL 3.5-5.0 BILIRUBIN TOTAL (BEAKER) (test uxwb=911) 28.0 mg/dL 0.2-1.2 BILIRUBIN DIRECT (BEAKER) (test xgrb=396) 21.7 mg/dL 0.1-0.5 ALKALINE PHOSPHATASE (BEAKER) (test teey=502) 86 U/L 40-150 AST (SGOT) (BEAKER) (test jmgf=048) 98 U/L 5-34 ALT (SGPT) (BEAKER) (test ivca=548) 19 U/L 6-55 Specimen markedly [id number] 05:40:00* Test Item Value Reference Range Comments PHOSPHORUS (BEAKER) (test ncgh=530) 2.8 mg/dL 2.3-4.7 GENTAMICIN LEVEL, [id number] 05:29:00* Test Item Value Reference Range Comments GENTAMICIN RANDOM (BEAKER) (test uarp=817) 1.5 ug/mL Reference Range: No [id number] 05:24:00* Test Item Value Reference Range Comments FIBRINOGEN LEVEL (BEAKER) (test toum=902) 225 mg/dl 225-434 BLOOD GAS, [id number] 04:57:00* Test Item Value Reference Range Comments PH ARTERIAL (BEAKER) (test lamp=771) 7.38 7.35-7.45 PCO2 ARTERIAL (BEAKER) (test pxvz=377) 44 mmHg 35-45 PO2 ARTERIAL (BEAKER) (test swyx=358) 167 mmHg 80-90 O2 SATURATION ARTERIAL (BEAKER) (test rncb=163) 99.1 % 96.0-97.0 HCO3 ARTERIAL (BEAKER) (test oaip=734) 25 mmol/L 21-29 BASE EXCESS ARTERIAL (BEAKER) (test suhe=541) 0.0 mmol/L -2.0-3.0 PATIENT TEMPERATURE (BEAKER) (test rytb=7589) 36.8 C FIO2 (BEAKER) (test yguf=3756) 40.0 % [id number] 01:01:00* Test Item Value Reference Range Comments POTASSIUM (BEAKER) (test joxw=839) 4.1 meq/L 3.5-5.1 BASIC METABOLIC [id number] 01:01:00* Test Item Value Reference Range Comments SODIUM (BEAKER) (test vjbt=180) 140 meq/L 136-145 POTASSIUM (BEAKER) (test uaff=153) 4.1 meq/L 3.5-5.1 CHLORIDE (BEAKER) (test shng=789) 107 meq/L 98-107 CO2 (BEAKER) (test tbrh=499) 22 meq/L 22-29 BLOOD UREA NITROGEN (BEAKER) (test wugq=511) 34 mg/dL 7-21 CREATININE (BEAKER) (test hgez=684) 3.13 mg/dL 0.57-1.25 GLUCOSE RANDOM (BEAKER) (test efxj=032) 136 mg/dL 70-105 CALCIUM (BEAKER) (test pipi=806) 8.7 mg/dL 8.4-10.2 EGFR (BEAKER) (test hlon=0316) 23 mL/min/1.73 sq m ESTIMATED GFR IS NOT ACCURATE CREATININE CLEARANCE IN PREDICTING GLOMERULAR FILTRATION RATE. ESTIMATED GFR IS NOT APPLICABLE FOR DIALYSIS PATIENTS. Specimen markedly ictericLACTIC ACID, ARTERIAL, WHOLE [id number] 00:55:00* Test Item Value Reference Range Comments LACTATE BLOOD ARTERIAL (2) (BEAKER) (test xdnd=2879) 0.8 mmol/L 0.5-2.2 Effective 10/28/2015: Units/Reference Range ChangeNew: 0.5-2.2 mmol/L Previous: 5 -20 mg/dLSpecimen markedly [id number] 00:52:00* Test Item Value Reference Range Comments FIBRINOGEN LEVEL (BEAKER) (test ocdd=255) 222 mg/dl 225-434 [id number] 00:52:00* Test Item Value Reference Range Comments PROTIME (BEAKER) (test sita=876) 18.8 seconds 11.7-14.7 INR (BEAKER) (test jflu=627) 1.6 <=5.9 PARTIAL THROMBOPLASTIN TIME (BEAKER) (test jqsl=905) 38.8 seconds 22.5-36.0 RECOMMENDED COUMADIN/WARFARIN INR THERAPY RANGESSTANDARD DOSE: 2.0 - 3.0 Includes: PROPHYLAXIS for venous thrombosis, systemic embolization; TREATMENT for venous thrombosis and/or pulmonary embolus.HIGH RISK: Target INR is 2.5-3.5 for patients with mechanical heart valves.CALCIUM, [id number] 00:48:00* Test Item Value Reference Range Comments CALCIUM IONIZED (BEAKER) (test fket=477) 1.05 mmol/L 1.12-1.27 PH, BLOOD (BEAKER) (test zhrf=5641) 7.40 LACTIC ACID, ARTERIAL, WHOLE [id number] 22:47:00* Test Item Value Reference Range Comments LACTATE BLOOD ARTERIAL (2) (BEAKER) (test qhao=3116) 0.9 mmol/L 0.5-2.2 Effective 10/28/2015: Units/Reference Range ChangeNew: 0.5-2.2 mmol/L Previous: 5 -20 mg/dLSpecimen markedly ictericGLUCOSE-STAT [id number] 22:25:00* Test Item Value Reference Range Comments GLUCOSE RANDOM (BEAKER) (test cqjo=011) 123 mg/dL 70-110 HGB/HCT (H&H) - STAT [id number] 22:25:00* Test Item Value Reference Range Comments HEMOGLOBIN (BEAKER) (test ivqj=453) 8.4 g/dL 13.0-16.8 HEMATOCRIT (BEAKER) (test jmrz=069) 25.0 % 40.0-50.0 OXYGEN SATURATION, [id number] 22:24:00* Test Item Value Reference Range Comments O2 SATURATION (MEASURED) (BEAKER) (test hdpu=4793) 70.1 % SODIUM NA-STAT [id number] 22:24:00* Test Item Value Reference Range Comments SODIUM (BEAKER) (test hfhk=129) 136 meq/L 135-148 POTASSIUM-STAT [id number] 22:24:00* Test Item Value Reference Range Comments POTASSIUM (BEAKER) (test ipct=265) 4.6 meq/L 3.6-5.5 BLOOD GAS, [id number] 22:24:00* Test Item Value Reference Range Comments PH ARTERIAL (BEAKER) (test vlsy=889) 7.43 7.35-7.45 PCO2 ARTERIAL (BEAKER) (test rzcj=895) 38 mmHg 35-45 PO2 ARTERIAL (BEAKER) (test csvx=752) 194 mmHg 80-90 O2 SATURATION ARTERIAL (BEAKER) (test ccjx=258) 99.4 % 96.0-97.0 HCO3 ARTERIAL (BEAKER) (test tzbe=077) 25 mmol/L 21-29 BASE EXCESS ARTERIAL (BEAKER) (test txmq=245) 0.6 mmol/L -2.0-3.0 PATIENT TEMPERATURE (BEAKER) (test upls=1796) 37.3 C FIO2 (BEAKER) (test tpwa=7361) 40.0 % [id number] 20:33:00* Test Item Value Reference Range Comments FIBRINOGEN LEVEL (BEAKER) (test lcnd=857) 203 mg/dl 225-434 [id number] 20:24:00* Test Item Value Reference Range Comments POTASSIUM (BEAKER) (test chpu=534) 4.1 meq/L 3.5-5.1 [id number] 20:24:00* Test Item Value Reference Range Comments MAGNESIUM (BEAKER) (test iytw=142) 2.3 mg/dL 1.6-2.6 [id number] 20:24:00* Test Item Value Reference Range Comments PHOSPHORUS (BEAKER) (test ocnz=803) 2.7 mg/dL 2.3-4.7 [id number] 20:24:00* Test Item Value Reference Range Comments SODIUM (BEAKER) (test zyay=154) 141 meq/L 136-145 LACTIC ACID, ARTERIAL, WHOLE [id number] 19:41:00* Test Item Value Reference Range Comments LACTATE BLOOD ARTERIAL (2) (BEAKER) (test dvho=1027) 0.9 mmol/L 0.5-2.2 Effective 10/28/2015: Units/Reference Range ChangeNew: 0.5-2.2 mmol/L Previous: 5 -20 mg/dLSpecimen markedly ictericCBC (HEMOGRAM ONLY)2016-12-28 19:38:00* Test Item Value Reference Range Comments WHITE BLOOD CELL COUNT (BEAKER) (test vvhf=044) 27.4 K/ L 4.0-10.0 RED BLOOD CELL COUNT (BEAKER) (test owyy=149) 2.95 M/ L 4.20-5.80 HEMOGLOBIN (BEAKER) (test ucbs=009) 9.1 GM/DL 13.0-16.8 HEMATOCRIT (BEAKER) (test vwbr=110) 26.6 % 40.0-50.0 MEAN CORPUSCULAR VOLUME (BEAKER) (test hzkw=561) 90.2 fL 82.0-98.0 MEAN CORPUSCULAR HEMOGLOBIN (BEAKER) (test pzuk=807) 30.7 pg 27.0-33.0 MEAN CORPUSCULAR HEMOGLOBIN CONC (BEAKER) (test vnws=476) 34.0 GM/DL 32.0- 36.0 RED CELL DISTRIBUTION WIDTH (BEAKER) (test zjiw=124) 24.0 % 10.3-14.2 PLATELET COUNT (BEAKER) (test xsbt=904) 67 K/CU MM 150-430 MEAN PLATELET VOLUME (BEAKER) (test sgth=882) 9.8 fL 6.5-10.5 NUCLEATED RED BLOOD CELLS (BEAKER) (test rdtz=457) 0 /100 WBC 0-0 POCT-GLUCOSE [id number] 16:59:00* Test Item Value Reference Range Comments POC-GLUCOSE METER (BEAKER) (test zpkz=7852) 132 mg/dL 70-[address] [facility] [address] [facility] [address] [id number] 16:42:00* Test Item Value Reference Range Comments POTASSIUM (BEAKER) (test tgfs=774) 4.0 meq/L 3.5-5.1 CALCIUM, [id number] 16:18:00* Test Item Value Reference Range Comments CALCIUM IONIZED (BEAKER) (test enjx=909) 1.18 mmol/L 1.12-1.27 PH, BLOOD (BEAKER) (test hftq=2473) 7.51 POCT-GLUCOSE [id number] 15:10:00* Test Item Value Reference Range Comments POC-GLUCOSE METER (BEAKER) (test kgbs=8578) 133 mg/dL 70-110 TESTED AT [place] [address] ANTI-NUCLEAR ANTIBODY (LADARIUS)2016-12-28 14:22:00* Test Item Value Reference Range Comments ANTI-NUCLEAR ANTIBODY (LADARIUS) ([facility]) (test ulah=402) Negative Negative LACTIC ACID, ARTERIAL, WHOLE [id number] 13:01:00* Test Item Value Reference Range Comments LACTATE BLOOD ARTERIAL (2) ([facility]) (test kigg=0426) 1.5 mmol/L 0.5-2.2 Effective 10/28/2015: Units/Reference Range ChangeNew: 0.5-2.2 mmol/L Previous: 5 -20 mg/dLSpecimen markedly ictericPOCT-GLUCOSE [id number] 12:57:00* Test Item Value Reference Range Comments POC-GLUCOSE METER ([facility]) (test xvvo=9038) 142 mg/dL 70-110 TESTED AT [place] [address] [id number] 12:51:00* Test Item Value Reference Range Comments FIBRINOGEN LEVEL ([facility]) (test vyhd=332) 253 mg/dl 225-434 POCT-GLUCOSE [id number] 12:27:00* Test Item Value Reference Range Comments POC-GLUCOSE METER ([facility]) (test ckij=3178) 147 mg/dL 70-110 TESTED AT [place] [address] POCT-GLUCOSE [id number] 12:27:00* Test Item Value Reference Range Comments POC-GLUCOSE METER ([facility]) (test tkks=5001) 141 mg/dL 70-110 TESTED AT [place] [address] BLOOD [id number] 10:53:00* Test Item Value Reference Range Comments CULTURE ([facility]) (test qjxp=1929) From Aerobic And Anaerobic Bottles Same organism has been isolated from cultures(s) of the same body site within 3 days. Repeat identification and susceptibility testing performed only after consultation with the clinical microbiology laboratory.Refer to previous culture ofMethicillin resistant Staphylococcus aureus GRAM STAIN RESULT ([facility]) (test pkkh=7267) From aerobic and anaerobic bottles : gram positive cocci in clusters POCT-GLUCOSE [id number] 10:50:00* Test Item Value Reference Range Comments POC-GLUCOSE METER (BEAKER) (test rfix=1706) 150 mg/dL 70-110 TESTED AT [place] [id number] [facility] [address] BLOOD [id number] 10:44:00* Test Item Value Reference Range Comments CULTURE (BEAKER) (test cwfr=3293) From Aerobic And Anaerobic Bottles Same organism has been isolated from cultures(s) of the same body site within 3 days. Repeat identification and susceptibility testing performed only after consultation with the clinical microbiology laboratory.Refer to previous culture ofMethicillin resistant Staphylococcus aureus GRAM STAIN RESULT (BEAKER) (test apix=8270) From aerobic and anaerobic bottles : gram positive cocci in clusters POCT-GLUCOSE [id number] 09:47:00* Test Item Value Reference Range Comments POC-GLUCOSE METER (BEAKER) (test phcn=0303) 145 mg/dL 70-110 TESTED AT [place] [id number] [place] [id number] POCT-GLUCOSE [id number] 09:45:00* Test Item Value Reference Range Comments POC-GLUCOSE METER (BEAKER) (test bmkg=4292) 159 mg/dL 70-110 TESTED AT [address] [address] CBC (HEMOGRAM ONLY)2016-12-28 09:34:00* Test Item Value Reference Range Comments WHITE BLOOD CELL COUNT (BEAKER) (test wsva=260) 24.7 K/ L 4.0-10.0 RED BLOOD CELL COUNT (BEAKER) (test nicz=568) 3.13 M/ L 4.20-5.80 HEMOGLOBIN (BEAKER) (test zshr=798) 9.9 GM/DL 13.0-16.8 HEMATOCRIT (BEAKER) (test nuqy=418) 28.3 % 40.0-50.0 MEAN CORPUSCULAR VOLUME (BEAKER) (test ulmb=811) 90.4 fL 82.0-98.0 MEAN CORPUSCULAR HEMOGLOBIN (BEAKER) (test ipjz=741) 31.5 pg 27.0-33.0 MEAN CORPUSCULAR HEMOGLOBIN CONC (BEAKER) (test bejs=822) 34.8 GM/DL 32.0- 36.0 RED CELL DISTRIBUTION WIDTH (BEAKER) (test svxw=855) 21.9 % 10.3-14.2 PLATELET COUNT (BEAKER) (test znwp=322) 88 K/CU MM 150-430 MEAN PLATELET VOLUME (BEAKER) (test czrk=318) 8.1 fL 6.5-10.5 NUCLEATED RED BLOOD CELLS (BEAKER) (test xmkk=644) 2 /100 WBC 0-0 0.000.670.000.000.710.000.000.000.000.000.000.670.000.000.730.000.000.000.00FIBR [id number] 09:03:00* Test Item Value Reference Range Comments FIBRINOGEN LEVEL (BEAKER) (test jxdk=078) 269 mg/dl 225-434 [id number] 09:00:00* Test Item Value Reference Range Comments POTASSIUM (BEAKER) (test wjkd=456) 4.1 meq/L 3.5-5.1 [id number] 09:00:00* Test Item Value Reference Range Comments MAGNESIUM (BEAKER) (test fckn=092) 1.8 mg/dL 1.6-2.6 [id number] 09:00:00* Test Item Value Reference Range Comments PHOSPHORUS (BEAKER) (test zpsp=319) 3.4 mg/dL 2.3-4.7 [id number] 09:00:00* Test Item Value Reference Range Comments SODIUM (BEAKER) (test vgio=267) 142 meq/L 136-145 [id number] 08:58:00* Test Item Value Reference Range Comments PROTIME (BEAKER) (test fese=633) 19.1 seconds 11.7-14.7 INR (BEAKER) (test nskm=545) 1.6 <=5.9 PARTIAL THROMBOPLASTIN TIME (BEAKER) (test zjlt=586) 36.9 seconds 22.5-36.0 RECOMMENDED COUMADIN/WARFARIN INR THERAPY RANGESSTANDARD DOSE: 2.0 - 3.0 Includes: PROPHYLAXIS for venous thrombosis, systemic embolization; TREATMENT for venous thrombosis and/or pulmonary embolus.HIGH RISK: Target INR is 2.5-3.5 for patients with mechanical heart valves.CALCIUM, [id number] 08:34:00* Test Item Value Reference Range Comments CALCIUM IONIZED (BEAKER) (test yqlj=278) 1.17 mmol/L 1.12-1.27 PH, BLOOD (BEAKER) (test lpuy=9760) 7.47 POCT-GLUCOSE [id number] 07:09:00* Test Item Value Reference Range Comments POC-GLUCOSE METER (BEAKER) (test vzjt=5474) 148 mg/dL 70-[address] [facility] [address] [facility] [address] LACTIC ACID, ARTERIAL, WHOLE [id number] 06:00:00* Test Item Value Reference Range Comments LACTATE BLOOD ARTERIAL (2) (BEAKER) (test srgq=8463) 4.5 mmol/L 0.5-2.2 Effective 10/28/2015: Units/Reference Range ChangeNew: 0.5-2.2 mmol/L Previous: 5 -20 mg/dLSpecimen markedly ictericPOCT-GLUCOSE [id number] 05:15:00* Test Item Value Reference Range Comments POC-GLUCOSE METER (BEAKER) (test eihz=4954) 140 mg/dL 70-110 TESTED AT [address] [address] GENTAMICIN LEVEL, [id number] 04:26:00* Test Item Value Reference Range Comments GENTAMICIN RANDOM (BEAKER) (test bgus=917) 1.0 ug/mL Reference Range: No NormalsBASIC METABOLIC [id number] 04:22:00* Test Item Value Reference Range Comments SODIUM (BEAKER) (test yeay=310) 144 meq/L 136-145 POTASSIUM (BEAKER) (test ipqi=912) 4.6 meq/L 3.5-5.1 CHLORIDE (BEAKER) (test hsuw=611) 105 meq/L 98-107 CO2 (BEAKER) (test mfqk=238) 21 meq/L 22-29 BLOOD UREA NITROGEN (BEAKER) (test nqxm=658) 35 mg/dL 7-21 CREATININE (BEAKER) (test wnnv=017) 4.12 mg/dL 0.57-1.25 GLUCOSE RANDOM (BEAKER) (test tqsi=611) 131 mg/dL 70-105 CALCIUM (BEAKER) (test zofu=526) 9.6 mg/dL 8.4-10.2 EGFR (BEAKER) (test ihns=7389) 17 mL/min/1.73 sq m ESTIMATED GFR IS NOT ACCURATE CREATININE CLEARANCE IN PREDICTING GLOMERULAR FILTRATION RATE. ESTIMATED GFR IS NOT APPLICABLE FOR DIALYSIS PATIENTS. Specimen markedly [id number] 04:21:00* Test Item Value Reference Range Comments FIBRINOGEN LEVEL (BEAKER) (test isip=266) 260 mg/dl 225-434 [id number] 04:21:00* Test Item Value Reference Range Comments PROTIME (BEAKER) (test fmnj=728) 19.2 seconds 11.7-14.7 INR (BEAKER) (test nxlm=455) 1.6 <=5.9 PARTIAL THROMBOPLASTIN TIME (BEAKER) (test alon=969) 37.7 seconds 22.5-36.0 RECOMMENDED COUMADIN/WARFARIN INR THERAPY RANGESSTANDARD DOSE: 2.0 - 3.0 Includes: PROPHYLAXIS for venous thrombosis, systemic embolization; TREATMENT for venous thrombosis and/or pulmonary embolus.HIGH RISK: Target INR is 2.5-3.5 for patients with mechanical heart valves.VANCOMYCIN LEVEL, [id number] 04: 17:00* Test Item Value Reference Range Comments VANCOMYCIN RANDOM (BEAKER) (test wtln=889) 21.9 ug/mL Reference Range: No NormalsOXYGEN SATURATION, [id number] 04:16:00* Test Item Value Reference Range Comments O2 SATURATION (MEASURED) (BEAKER) (test fsyd=1627) 68.9 % [id number] 04:16:00* Test Item Value Reference Range Comments PHOSPHORUS (BEAKER) (test nmsc=482) 4.1 mg/dL 2.3-4.7 [id number] 04:16:00* Test Item Value Reference Range Comments MAGNESIUM (BEAKER) (test nzad=160) 1.6 mg/dL 1.6-2.6 [id number] 04:16:00* Test Item Value Reference Range Comments CALCIUM (BEAKER) (test ehxm=449) 9.6 mg/dL 8.4-10.2 POCT-GLUCOSE [id number] 04:11:00* Test Item Value Reference Range Comments POC-GLUCOSE METER (BEAKER) (test hrbb=8676) 121 mg/dL 70-[address] [facility] [address] [place] [id number] BLOOD GAS, [id number] 04:10:00* Test Item Value Reference Range Comments PH ARTERIAL (BEAKER) (test tgob=717) 7.44 7.35-7.45 PCO2 ARTERIAL (BEAKER) (test mwbg=437) 34 mmHg 35-45 PO2 ARTERIAL (BEAKER) (test ekrk=893) 174 mmHg 80-90 O2 SATURATION ARTERIAL (BEAKER) (test lotz=821) 99.3 % 96.0-97.0 HCO3 ARTERIAL (BEAKER) (test nsae=176) 23 mmol/L 21-29 BASE EXCESS ARTERIAL (BEAKER) (test vghb=784) -0.9 mmol/L -2.0-3.0 PATIENT TEMPERATURE (BEAKER) (test zqlm=8633) 36.5 C FIO2 (BEAKER) (test ddnq=6015) 60.0 % CBC (HEMOGRAM ONLY)2016-12-28 04:09:00* Test Item Value Reference Range Comments WHITE BLOOD CELL COUNT (BEAKER) (test oxta=403) 26.3 K/ L 4.0-10.0 RED BLOOD CELL COUNT (BEAKER) (test mggz=173) 3.36 M/ L 4.20-5.80 HEMOGLOBIN (BEAKER) (test wuyp=442) 10.4 GM/DL 13.0-16.8 HEMATOCRIT (BEAKER) (test ydha=205) 30.5 % 40.0-50.0 MEAN CORPUSCULAR VOLUME (BEAKER) (test ytkt=003) 90.9 fL 82.0-98.0 MEAN CORPUSCULAR HEMOGLOBIN (BEAKER) (test uecm=902) 31.0 pg 27.0-33.0 MEAN CORPUSCULAR HEMOGLOBIN CONC (BEAKER) (test xewd=076) 34.1 GM/DL 32.0- 36.0 RED CELL DISTRIBUTION WIDTH (BEAKER) (test ajgn=261) 23.1 % 10.3-14.2 PLATELET COUNT (BEAKER) (test pons=236) 92 K/CU MM 150-430 MEAN PLATELET VOLUME (BEAKER) (test ngsg=529) 9.8 fL 6.5-10.5 NUCLEATED RED BLOOD CELLS (BEAKER) (test nfdf=571) 2 /100 WBC 0-0 0.000.780.000.000.900.000.000.000.00POCT-GLUCOSE [id number] 02:25:00* Test Item Value Reference Range Comments POC-GLUCOSE METER ([facility]) (test msod=0538) 118 mg/dL 70-110 TESTED AT [place] [id number] 01:35:00* Test Item Value Reference Range Comments FIBRINOGEN LEVEL ([facility]) (test nabj=749) 283 mg/dl 225-434 [id number] 01:35:00* Test Item Value Reference Range Comments PARTIAL THROMBOPLASTIN TIME (AKER) (test htvo=499) 39.3 seconds 22.5-36.0 PROTHROMBIN [id number] 01:34:00* Test Item Value Reference Range Comments PROTIME ([facility]) (test agxj=841) 20.9 seconds 11.7-14.7 INR ([facility]) (test uhmd=830) 1.8 <=5.9 RECOMMENDED COUMADIN/WARFARIN INR THERAPY RANGESSTANDARD DOSE: 2.0 - 3.0 Includes: PROPHYLAXIS for venous thrombosis, systemic embolization; TREATMENT for venous thrombosis and/or pulmonary embolus.HIGH RISK: Target INR is 2.5-3.5 for patients with mechanical heart valves.PLATELET [id number] 01:28:00* Test Item Value Reference Range Comments PLATELET COUNT ([facility]) (test cral=619) 95 K/CU MM 150-430 POCT-GLUCOSE [id number] 01:14:00* Test Item Value Reference Range Comments POC-GLUCOSE METER ([facility]) (test jozq=1603) 106 mg/dL 70-110 TESTED AT [place] [id number] CBC (HEMOGRAM ONLY)2016-12-28 00:18:00* Test Item Value Reference Range Comments WHITE BLOOD CELL COUNT (BEAKER) (test twpl=648) 30.1 K/ L 4.0-10.0 RED BLOOD CELL COUNT (AKER) (test djtf=755) 3.41 M/ L 4.20-5.80 HEMOGLOBIN (AKER) (test hlix=105) 10.3 GM/DL 13.0-16.8 HEMATOCRIT (AKER) (test ivco=379) 31.4 % 40.0-50.0 MEAN CORPUSCULAR VOLUME (BEAKER) (test pxfh=132) 92.2 fL 82.0-98.0 MEAN CORPUSCULAR HEMOGLOBIN (BEAKER) (test ckmk=769) 30.2 pg 27.0-33.0 MEAN CORPUSCULAR HEMOGLOBIN CONC (BEAKER) (test kboz=559) 32.8 GM/DL 32.0- 36.0 RED CELL DISTRIBUTION WIDTH (BEAKER) (test klot=481) 21.5 % 10.3-14.2 PLATELET COUNT (BEAKER) (test hnqy=389) 96 K/CU MM 150-430 MEAN PLATELET VOLUME (BEAKER) (test bwdd=442) 6.3 fL 6.5-10.5 NUCLEATED RED BLOOD CELLS (BEAKER) (test jjpe=329) 2 /100 WBC 0-0 0.000.790.000.000.900.000.000.000.000.000.000.620.600.000.880.000.000.000.00LACT IC ACID, ARTERIAL, WHOLE [id number] 00:13:00* Test Item Value Reference Range Comments LACTATE BLOOD ARTERIAL (2) (BEAKER) (test miqj=8888) 8.8 mmol/L 0.5-2.2 Specimen slightly hemolyzed Effective 10/28/2015: Units/Reference Range ChangeNew: 0.5-2.2 mmol/L Previous: 5 -20 mg/dLWITH NEXT BLOOD DRAWSpecimen markedly [id number] 00:12: 00* Test Item Value Reference Range Comments POTASSIUM (BEAKER) (test jxvy=519) 4.8 meq/L 3.5-5.1 Specimen slightly hemolyzed [id number] 00:11:00* Test Item Value Reference Range Comments FIBRINOGEN LEVEL (BEAKER) (test zhub=977) 230 mg/dl 225-434 PT/[id number] 00:11:00* Test Item Value Reference Range Comments PROTIME (BEAKER) (test bvnx=717) 19.4 seconds 11.7-14.7 INR (BEAKER) (test ehfi=594) 1.6 <=5.9 PARTIAL THROMBOPLASTIN TIME (BEAKER) (test ndde=341) 41.6 seconds 22.5-36.0 RECOMMENDED COUMADIN/WARFARIN INR THERAPY RANGESSTANDARD DOSE: 2.0 - 3.0 Includes: PROPHYLAXIS for venous thrombosis, systemic embolization; TREATMENT for venous thrombosis and/or pulmonary embolus.HIGH RISK: Target INR is 2.5-3.5 for patients with mechanical heart valves.PROTHROMBIN TIME/[id number] 00:10: 00* Test Item Value Reference Range Comments PROTIME (BEAKER) (test ualk=206) 19.4 seconds 11.7-14.7 INR (BEAKER) (test aowm=685) 1.6 <=5.9 RECOMMENDED COUMADIN/WARFARIN INR THERAPY RANGESSTANDARD DOSE: 2.0 - 3.0 Includes: PROPHYLAXIS for venous thrombosis, systemic embolization; TREATMENT for venous thrombosis and/or pulmonary embolus.HIGH RISK: Target INR is 2.5-3.5 for patients with mechanical heart valves.POCT-GLUCOSE [id number] 00:03:00 * Test Item Value Reference Range Comments POC-GLUCOSE METER (BEAKER) (test kadg=7957) 97 mg/dL 70-110 TESTED AT [address] [address] POCT-GLUCOSE [id number] 22:57:00* Test Item Value Reference Range Comments POC-GLUCOSE METER (BEAKER) (test gkiw=0262) 103 mg/dL 70-110 TESTED AT [address] [address] POCT-GLUCOSE [id number] 22:40:00* Test Item Value Reference Range Comments POC-GLUCOSE METER (BEAKER) (test dsqs=0420) 100 mg/dL 70-110 TESTED AT [address] [address] POCT-GLUCOSE [id number] 22:40:00* Test Item Value Reference Range Comments POC-GLUCOSE METER (BEAKER) (test jzix=0778) 91 mg/dL 70-110 TESTED AT [address] [address] POCT-GLUCOSE [id number] 22:40:00* Test Item Value Reference Range Comments POC-GLUCOSE METER (BEAKER) (test vmib=1197) 90 mg/dL 70-110 TESTED AT [address] [address] BLOOD GAS, [id number] 22:18:00* Test Item Value Reference Range Comments PH ARTERIAL (BEAKER) (test otnl=534) 7.35 7.35-7.45 PCO2 ARTERIAL (BEAKER) (test bxxr=391) 36 mmHg 35-45 PO2 ARTERIAL (BEAKER) (test xrgq=259) 98 mmHg 80-90 O2 SATURATION ARTERIAL (BEAKER) (test xdzh=147) 97.2 % 96.0-97.0 HCO3 ARTERIAL (BEAKER) (test ggis=137) 20 mmol/L 21-29 BASE EXCESS ARTERIAL (BEAKER) (test wmgm=723) -5.4 mmol/L -2.0-3.0 PATIENT TEMPERATURE (BEAKER) (test zehq=9194) 37.0 C HGB/HCT (H&H) - STAT [id number] 22:18:00* Test Item Value Reference Range Comments HEMOGLOBIN (BEAKER) (test vesa=044) 10.1 g/dL 13.0-16.8 HEMATOCRIT (BEAKER) (test kkzz=158) 30.0 % 40.0-50.0 GLUCOSE-STAT [id number] 22:17:00* Test Item Value Reference Range Comments GLUCOSE RANDOM (BEAKER) (test jjjg=888) 89 mg/dL 70-110 SODIUM NA-STAT [id number] 22:17:00* Test Item Value Reference Range Comments SODIUM (BEAKER) (test dtkp=362) 140 meq/L 135-148 POTASSIUM-STAT [id number] 22:17:00* Test Item Value Reference Range Comments POTASSIUM (BEAKER) (test tyno=749) 4.5 meq/L 3.6-5.5 CBC W/PLT COUNT & AUTO [id number] 22:16:00* Test Item Value Reference Range Comments WHITE BLOOD CELL COUNT (BEAKER) (test hrkz=336) 30.3 K/ L 4.0-10.0 RED BLOOD CELL COUNT (BEAKER) (test iefr=483) 3.33 M/ L 4.20-5.80 HEMOGLOBIN (BEAKER) (test qxoz=735) 10.3 GM/DL 13.0-16.8 HEMATOCRIT (BEAKER) (test thty=903) 31.5 % 40.0-50.0 MEAN CORPUSCULAR VOLUME (BEAKER) (test mvbq=627) 94.3 fL 82.0-98.0 MEAN CORPUSCULAR HEMOGLOBIN (BEAKER) (test nkhg=550) 31.0 pg 27.0-33.0 MEAN CORPUSCULAR HEMOGLOBIN CONC (BEAKER) (test bmza=236) 32.8 GM/DL 32.0- 36.0 RED CELL DISTRIBUTION WIDTH (BEAKER) (test mrei=930) 21.8 % 10.3-14.2 PLATELET COUNT (BEAKER) (test jqqc=824) 120 K/CU MM 150-430 MEAN PLATELET VOLUME (BEAKER) (test atzm=455) 6.6 fL 6.5-10.5 NUCLEATED RED BLOOD CELLS (BEAKER) (test qhku=731) 2 /100 WBC 0-0 NEUTROPHILS RELATIVE PERCENT (BEAKER) (test befj=925) 87 % LYMPHOCYTES RELATIVE PERCENT (BEAKER) (test brdv=533) 6 % MONOCYTES RELATIVE PERCENT (BEAKER) (test hpcm=620) 6 % EOSINOPHILS RELATIVE PERCENT (BEAKER) (test qzps=216) 1 % BASOPHILS RELATIVE PERCENT (BEAKER) (test lftv=942) 0 % NEUTROPHILS ABSOLUTE COUNT (BEAKER) (test tcqd=646) 26.40 K/ L 1.80-8.00 LYMPHOCYTES ABSOLUTE COUNT (BEAKER) (test erho=191) 1.89 K/ L 1.48-4.50 MONOCYTES ABSOLUTE COUNT (BEAKER) (test aram=302) 1.83 K/ L 0.00-1.30 EOSINOPHILS ABSOLUTE COUNT (BEAKER) (test mkat=453) 0.21 K/ L 0.00-0.50 BASOPHILS ABSOLUTE COUNT (BEAKER) (test wxlk=926) 0.03 K/ L 0.00-0.20 HEPATIC FUNCTION [id number] 22:09:00* Test Item Value Reference Range Comments TOTAL PROTEIN (BEAKER) (test gwxt=216) 4.3 gm/dL 6.0-8.3 Specimen moderately hemolyzed ALBUMIN (BEAKER) (test ftnr=3950) 2.5 g/dL 3.5-5.0 Specimen moderately hemolyzed BILIRUBIN TOTAL (BEAKER) (test mitp=644) 23.8 mg/dL 0.2-1.2 Specimen moderately hemolyzed BILIRUBIN DIRECT (BEAKER) (test esyw=375) 14.4 mg/dL 0.1-0.5 Specimen moderately hemolyzed ALKALINE PHOSPHATASE (BEAKER) (test jopx=426) 87 U/L 40-150 AST (SGOT) (BEAKER) (test lpyp=698) 94 U/L 5-34 Specimen moderately hemolyzed ALT (SGPT) (BEAKER) (test jvck=584) 13 U/L 6-55 Specimen moderately hemolyzed Specimen markedly ictericFIBRIN SOLUBLE [id number] 21:09:00* Test Item Value Reference Range Comments FIBRIN SOLUBLE MONOMER (BEAKER) (test hwhs=0477) POS 2+ [id number] 20:22:00* Test Item Value Reference Range Comments D-DIMER QUANTITATIVE (BEAKER) (test rlkx=541) 6.88 MG/L FEU <0.50 Intended Use: The D-Dimer Assay can be used to aid in the diagnosis of Deep Vein Thrombosis (DVT) and Pulmonary Embolism Disease (PED).In patients with low pre-test probability, various studies concerning STA Liatest D-dimer test have reported that with a cutoff value of 0.50 MG/L FEU, the Negative Predictive Value (NPV) regarding the exclusion of thrombosis is within 95-100% range.GLUCOSE-STAT [id number] 20:21:00* Test Item Value Reference Range Comments GLUCOSE RANDOM (BEAKER) (test wpos=476) 80 mg/dL 70-110 SODIUM NA-STAT [id number] 20:21:00* Test Item Value Reference Range Comments SODIUM (BEAKER) (test ynfi=555) 141 meq/L 135-148 POTASSIUM-STAT [id number] 20:21:00* Test Item Value Reference Range Comments POTASSIUM (BEAKER) (test iwab=472) 5.0 meq/L 3.6-5.5 CALCIUM, [id number] 20:21:00* Test Item Value Reference Range Comments CALCIUM IONIZED (BEAKER) (test wpwv=429) 1.33 mmol/L 1.12-1.27 PH, BLOOD (BEAKER) (test ebmo=4105) 7.32 BLOOD GAS, [id number] 20:21:00* Test Item Value Reference Range Comments PH ARTERIAL (BEAKER) (test npur=974) 7.32 7.35-7.45 PCO2 ARTERIAL (BEAKER) (test javk=273) 40 mmHg 35-45 PO2 ARTERIAL (BEAKER) (test uqao=877) 102 mmHg 80-90 O2 SATURATION ARTERIAL (BEAKER) (test liuv=664) 97.6 % 96.0-97.0 HCO3 ARTERIAL (BEAKER) (test gzzk=927) 20 mmol/L 21-29 BASE EXCESS ARTERIAL (BEAKER) (test calg=108) -5.8 mmol/L -2.0-3.0 PATIENT TEMPERATURE (BEAKER) (test zhlb=6149) 35.7 C FIO2 (BEAKER) (test ymru=4390) 100.0 % HGB/HCT (H&H) - STAT [id number] 20:21:00* Test Item Value Reference Range Comments HEMOGLOBIN (BEAKER) (test jtxa=843) 10.2 g/dL 13.0-16.8 HEMATOCRIT (BEAKER) (test mafz=754) 30.0 % 40.0-50.0 [id number] 20:13:00* Test Item Value Reference Range Comments PARTIAL THROMBOPLASTIN TIME (BEAKER) (test fuaf=436) 52.8 seconds 22.5-36.0 [id number] 20:12:00* Test Item Value Reference Range Comments FIBRINOGEN LEVEL (BEAKER) (test azfu=594) 204 mg/dl 225-434 PROTHROMBIN TIME/[id number] 20:11:00* Test Item Value Reference Range Comments PROTIME (BEAKER) (test otsm=108) 19.0 seconds 11.7-14.7 INR (BEAKER) (test ncyl=241) 1.6 <=5.9 RECOMMENDED COUMADIN/WARFARIN INR THERAPY RANGESSTANDARD DOSE: 2.0 - 3.0 Includes: PROPHYLAXIS for venous thrombosis, systemic embolization; TREATMENT for venous thrombosis and/or pulmonary embolus.HIGH RISK: Target INR is 2.5-3.5 for patients with mechanical heart valves.PLATELET [id number] 20:08:00* Test Item Value Reference Range Comments PLATELET COUNT (BEAKER) (test ifkz=421) 118 K/CU MM 150-430 BASIC METABOLIC [id number] 19:41:00* Test Item Value Reference Range Comments SODIUM (BEAKER) (test vmnh=478) 143 meq/L 136-145 POTASSIUM (BEAKER) (test ogfe=054) 5.2 meq/L 3.5-5.1 Specimen moderately hemolyzed CHLORIDE (BEAKER) (test mhgb=367) 105 meq/L 98-107 CO2 (BEAKER) (test pjza=634) 18 meq/L 22-29 BLOOD UREA NITROGEN (BEAKER) (test ehuo=053) 37 mg/dL 7-21 CREATININE (BEAKER) (test rtyk=079) 4.73 mg/dL 0.57-1.25 Specimen moderately hemolyzed GLUCOSE RANDOM (BEAKER) (test nrjy=316) 104 mg/dL 70-105 CALCIUM (BEAKER) (test fdoe=916) 10.2 mg/dL 8.4-10.2 EGFR (BEAKER) (test xwfi=9073) 14 mL/min/1.73 sq m ESTIMATED GFR IS NOT ACCURATE CREATININE CLEARANCE IN PREDICTING GLOMERULAR FILTRATION RATE. ESTIMATED GFR IS NOT APPLICABLE FOR DIALYSIS PATIENTS. Specimen markedly [id number] 19:35:00* Test Item Value Reference Range Comments MAGNESIUM (BEAKER) (test iezr=811) 2.4 mg/dL 1.6-2.6 Specimen markedly hemolyzed [id number] 19:35:00* Test Item Value Reference Range Comments PHOSPHORUS (BEAKER) (test jnkd=527) 6.3 mg/dL 2.3-4.7 Specimen markedly hemolyzed LACTIC ACID, ARTERIAL, WHOLE [id number] 19:33:00* Test Item Value Reference Range Comments LACTATE BLOOD ARTERIAL (2) (BEAKER) (test hngp=1049) 10.5 mmol/L 0.5-2.2 Specimen moderately hemolyzed Effective 10/28/2015: Units/Reference Range ChangeNew: 0.5-2.2 mmol/L Previous: 5 -20 mg/dLSpecimen markedly ictericPT/[id number] 19:33:00* Test Item Value Reference Range Comments PROTIME (BEAKER) (test uxbv=386) 18.1 seconds 11.7-14.7 INR (BEAKER) (test pqol=073) 1.5 <=5.9 PARTIAL THROMBOPLASTIN TIME (BEAKER) (test nnbi=853) 53.6 seconds 22.5-36.0 RECOMMENDED COUMADIN/WARFARIN INR THERAPY RANGESSTANDARD DOSE: 2.0 - 3.0 Includes: PROPHYLAXIS for venous thrombosis, systemic embolization; TREATMENT for venous thrombosis and/or pulmonary embolus.HIGH RISK: Target INR is 2.5-3.5 for patients with mechanical heart valves.[id number] 19:33:00* Test Item Value Reference Range Comments PARTIAL THROMBOPLASTIN TIME (BEAKER) (test vqvm=234) 53.6 seconds 22.5-36.0 PROTHROMBIN TIME/[id number] 19:32:00* Test Item Value Reference Range Comments PROTIME (BEAKER) (test bljh=800) 18.1 seconds 11.7-14.7 INR (BEAKER) (test zvzd=631) 1.5 <=5.9 RECOMMENDED COUMADIN/WARFARIN INR THERAPY RANGESSTANDARD DOSE: 2.0 - 3.0 Includes: PROPHYLAXIS for venous thrombosis, systemic embolization; TREATMENT for venous thrombosis and/or pulmonary embolus.HIGH RISK: Target INR is 2.5-3.5 for patients with mechanical heart valves.[id number] 19:32:00* Test Item Value Reference Range Comments FIBRINOGEN LEVEL (BEAKER) (test jngd=487) 202 mg/dl 225-434 OXYGEN SATURATION, [id number] 19:24:00* Test Item Value Reference Range Comments O2 SATURATION (MEASURED) (BEAKER) (test apza=1735) 65.0 % BLOOD GAS, [id number] 19:22:00* Test Item Value Reference Range Comments PH ARTERIAL (BEAKER) (test wrgx=615) 7.23 7.35-7.45 PCO2 ARTERIAL (BEAKER) (test rpcc=211) 54 mmHg 35-45 PO2 ARTERIAL (BEAKER) (test zcmc=640) 85 mmHg 80-90 O2 SATURATION ARTERIAL (BEAKER) (test lwtj=352) 95.3 % 96.0-97.0 HCO3 ARTERIAL (BEAKER) (test zljj=133) 23 mmol/L 21-29 BASE EXCESS ARTERIAL (BEAKER) (test krrk=349) -5.3 mmol/L -2.0-3.0 PATIENT TEMPERATURE (BEAKER) (test syoh=9583) 35.6 C FIO2 (BEAKER) (test jblp=2223) 60.0 % CALCIUM, [id number] 19:22:00* Test Item Value Reference Range Comments CALCIUM IONIZED (BEAKER) (test lknr=998) 1.31 mmol/L 1.12-1.27 PH, BLOOD (BEAKER) (test qdjd=7459) 7.23 BLOOD GAS, [id number] 18:16:00* Test Item Value Reference Range Comments PH ARTERIAL (BEAKER) (test buwn=368) 7.25 7.35-7.45 PCO2 ARTERIAL (BEAKER) (test cyct=478) 48 mmHg 35-45 PO2 ARTERIAL (BEAKER) (test spyv=819) 199 mmHg 80-90 O2 SATURATION ARTERIAL (BEAKER) (test dbro=250) 99.2 % 96.0-97.0 HCO3 ARTERIAL (BEAKER) (test lwrf=636) 21 mmol/L 21-29 BASE EXCESS ARTERIAL (BEAKER) (test jdjd=959) -6.5 mmol/L -2.0-3.0 PATIENT TEMPERATURE (BEAKER) (test wais=6521) 35.7 C FIO2 (BEAKER) (test sasz=8161) 98.0 % GLUCOSE-STAT [id number] 18:16:00* Test Item Value Reference Range Comments GLUCOSE RANDOM (BEAKER) (test ziwm=324) 61 mg/dL 70-110 HGB/HCT (H&H) - STAT [id number] 18:16:00* Test Item Value Reference Range Comments HEMOGLOBIN (BEAKER) (test stbv=216) 9.3 g/dL 13.0-16.8 HEMATOCRIT (BEAKER) (test njgw=271) 27.0 % 40.0-50.0 CALCIUM, [id number] 18:16:00* Test Item Value Reference Range Comments CALCIUM IONIZED (BEAKER) (test qdwz=028) 1.12 mmol/L 1.12-1.27 PH, BLOOD (BEAKER) (test ltku=3267) 7.25 SODIUM NA-STAT [id number] 18:15:00* Test Item Value Reference Range Comments SODIUM (BEAKER) (test ramh=624) 143 meq/L 135-148 POTASSIUM-STAT [id number] 18:15:00* Test Item Value Reference Range Comments POTASSIUM (BEAKER) (test pqmm=224) 4.8 meq/L 3.6-5.5 [id number] 18:13:00* Test Item Value Reference Range Comments ACTIVATED CLOTTING TIME (BEAKER) (test ozqr=427) 510 sec TESTED AT [address] [address] [id number] 18:13:00* Test Item Value Reference Range Comments ACTIVATED CLOTTING TIME (BEAKER) (test uggs=983) 439 sec TESTED AT [place] [address] [id number] 18:13:00* Test Item Value Reference Range Comments ACTIVATED CLOTTING TIME (BEAKER) (test qwjp=596) 449 sec TESTED AT [place] [address] [id number] 18:13:00* Test Item Value Reference Range Comments ACTIVATED CLOTTING TIME (BEAKER) (test lbum=015) 538 sec TESTED AT [address] [address] [id number] 18:13:00* Test Item Value Reference Range Comments ACTIVATED CLOTTING TIME (BEAKER) (test wlvh=382) 483 sec TESTED AT [address] [address] [id number] 18:13:00* Test Item Value Reference Range Comments ACTIVATED CLOTTING TIME (BEAKER) (test tlot=501) 555 sec TESTED AT [address] [address] [id number] 18:13:00* Test Item Value Reference Range Comments ACTIVATED CLOTTING TIME (BEAKER) (test arwn=523) 461 sec TESTED AT [address] [address] [id number] 18:13:00* Test Item Value Reference Range Comments ACTIVATED CLOTTING TIME (BEAKER) (test kyip=712) 648 sec TESTED AT [place] [address] [id number] 18:13:00* Test Item Value Reference Range Comments ACTIVATED CLOTTING TIME (BEAKER) (test ulmv=335) 472 sec TESTED AT [place] [address] [id number] 18:13:00* Test Item Value Reference Range Comments ACTIVATED CLOTTING TIME (BEAKER) (test wgqp=151) 510 sec TESTED AT [place] [address] [id number] 18:12:00* Test Item Value Reference Range Comments ACTIVATED CLOTTING TIME (BEAKER) (test gxir=122) 450 sec TESTED AT [place] [address] [id number] 18:12:00* Test Item Value Reference Range Comments ACTIVATED CLOTTING TIME (BEAKER) (test jcgl=255) 532 sec TESTED AT [place] [address] [id number] 18:12:00* Test Item Value Reference Range Comments ACTIVATED CLOTTING TIME (BEAKER) (test hwch=720) 477 sec TESTED AT [place] [address] [id number] 18:12:00* Test Item Value Reference Range Comments ACTIVATED CLOTTING TIME (BEAKER) (test bpnp=086) 444 sec TESTED AT [place] [address] [id number] 18:12:00* Test Item Value Reference Range Comments ACTIVATED CLOTTING TIME (BEAKER) (test utnb=324) 389 sec TESTED AT [place] [address] [id number] 18:12:00* Test Item Value Reference Range Comments ACTIVATED CLOTTING TIME (BEAKER) (test yzva=667) 499 sec TESTED AT [place] [address] THROMBOELASTOGRAPH (TEG)2016-12-27 17:59:00* Test Item Value Reference Range Comments TEG ACTIVATED CLOTTING TIME (BEAKER) (test kbms=1969) 6.8 minutes 4.0-7.0 TEG FIBRINOGEN ACTIVITY (BEAKER) (test vcod=1511) 73.8 degrees 61.0-73.0 TEG PLT. AGGREGATION (BEAKER) (test nzwe=3799) 60.0 MM 55.0-65.0 TGH ACTIVATED CLOTTING TIME (BEAKER) (test rpqn=0547) 6.8 minutes 4.0-7.0 TGH FIBRINOGEN ACTIVITY (BEAKER) (test unpn=9355) 72.5 degrees 61.0-73.0 TGH PLT. AGGREGATION (BEAKER) (test vmbu=6333) 58.1 MM 55.0-65.0 THROMBOELASTOGRAPH (TEG)2016-12-27 17:47:00* Test Item Value Reference Range Comments TEG ACTIVATED CLOTTING TIME (BEAKER) (test akvo=7948) 21.8 minutes 4.0-7.0 TEG FIBRINOGEN ACTIVITY (BEAKER) (test kqwh=3987) 38.2 degrees 61.0-73.0 TEG PLT. AGGREGATION (BEAKER) (test egvg=6385) 49.5 MM 55.0-65.0 TGH ACTIVATED CLOTTING TIME (BEAKER) (test lmio=1091) 22.3 minutes 4.0-7.0 TGH FIBRINOGEN ACTIVITY (BEAKER) (test ejpa=8609) 35.4 degrees 61.0-73.0 TGH PLT. AGGREGATION (BEAKER) (test tbpf=9487) 37.7 MM 55.0-65.0 [id number] 17:44:00* Test Item Value Reference Range Comments FIBRINOGEN LEVEL (BEAKER) (test faoz=708) 200 mg/dl 225-434 [id number] 17:44:00* Test Item Value Reference Range Comments PARTIAL THROMBOPLASTIN TIME (BEAKER) (test ggnz=351) 59.8 seconds 22.5-36.0 PROTHROMBIN TIME/[id number] 17:43:00* Test Item Value Reference Range Comments PROTIME (BEAKER) (test ujim=734) 15.0 seconds 11.7-14.7 INR (BEAKER) (test slzw=468) 1.2 <=5.9 RECOMMENDED COUMADIN/WARFARIN INR THERAPY RANGESSTANDARD DOSE: 2.0 - 3.0 Includes: PROPHYLAXIS for venous thrombosis, systemic embolization; TREATMENT for venous thrombosis and/or pulmonary embolus.HIGH RISK: Target INR is 2.5-3.5 for patients with mechanical heart valves.PLATELET [id number] 17:39:00* Test Item Value Reference Range Comments PLATELET COUNT (BEAKER) (test mmvw=810) 125 K/CU MM 150-430 CALCIUM, [id number] 17:27:00* Test Item Value Reference Range Comments CALCIUM IONIZED (BEAKER) (test qutp=280) 0.99 mmol/L 1.12-1.27 PH, BLOOD (BEAKER) (test mshv=9226) 7.25 BLOOD GAS, [id number] 17:18:00* Test Item Value Reference Range Comments PH ARTERIAL (BEAKER) (test ctbc=476) 7.25 7.35-7.45 PCO2 ARTERIAL (BEAKER) (test urev=003) 47 mmHg 35-45 PO2 ARTERIAL (BEAKER) (test kiue=232) 145 mmHg 80-90 O2 SATURATION ARTERIAL (BEAKER) (test dfet=323) 98.6 % 96.0-97.0 HCO3 ARTERIAL (BEAKER) (test lygk=619) 20 mmol/L 21-29 BASE EXCESS ARTERIAL (BEAKER) (test ejpd=540) -6.7 mmol/L -2.0-3.0 PATIENT TEMPERATURE (BEAKER) (test bpan=9133) 35.9 C FIO2 (BEAKER) (test tlib=9051) 90.0 % GLUCOSE-STAT [id number] 17:18:00* Test Item Value Reference Range Comments GLUCOSE RANDOM (BEAKER) (test nvsb=644) 134 mg/dL 70-110 HGB/HCT (H&H) - STAT [id number] 17:18:00* Test Item Value Reference Range Comments HEMOGLOBIN (BEAKER) (test nvcf=932) 7.4 g/dL 13.0-16.8 HEMATOCRIT (BEAKER) (test sunz=460) 22.0 % 40.0-50.0 SODIUM NA-STAT [id number] 17:17:00* Test Item Value Reference Range Comments SODIUM (BEAKER) (test bilo=521) 141 meq/L 135-148 POTASSIUM-STAT [id number] 17:17:00* Test Item Value Reference Range Comments POTASSIUM (BEAKER) (test ygnd=976) 5.0 meq/L 3.6-5.5 [id number] 16:43:00* Test Item Value Reference Range Comments FIBRINOGEN LEVEL (BEAKER) (test ipta=021) 196 mg/dl 225-434 [id number] 16:39:00* Test Item Value Reference Range Comments PARTIAL THROMBOPLASTIN TIME (BEAKER) (test toco=010) 70.6 seconds 22.5-36.0 PROTHROMBIN TIME/[id number] 16:38:00* Test Item Value Reference Range Comments PROTIME (BEAKER) (test sqyi=669) 34.0 seconds 11.7-14.7 INR (BEAKER) (test qggq=757) 3.3 <=5.9 RECOMMENDED COUMADIN/WARFARIN INR THERAPY RANGESSTANDARD DOSE: 2.0 - 3.0 Includes: PROPHYLAXIS for venous thrombosis, systemic embolization; TREATMENT for venous thrombosis and/or pulmonary embolus.HIGH RISK: Target INR is 2.5-3.5 for patients with mechanical heart valves.PLATELET [id number] 16:31:00* Test Item Value Reference Range Comments PLATELET COUNT (BEAKER) (test xojm=167) 47 K/CU MM 150-430 BLOOD GAS, [id number] 16:30:00* Test Item Value Reference Range Comments PH ARTERIAL (BEAKER) (test rscn=364) 7.22 7.35-7.45 PCO2 ARTERIAL (BEAKER) (test fvvq=354) 43 mmHg 35-45 PO2 ARTERIAL (BEAKER) (test usor=541) 188 mmHg 80-90 O2 SATURATION ARTERIAL (BEAKER) (test zchw=941) 99.0 % 96.0-97.0 HCO3 ARTERIAL (BEAKER) (test okml=706) 17 mmol/L 21-29 BASE EXCESS ARTERIAL (BEAKER) (test bzxw=802) -9.8 mmol/L -2.0-3.0 PATIENT TEMPERATURE (BEAKER) (test nnfb=0458) 36.5 C FIO2 (BEAKER) (test gxxx=9186) 90.0 % HGB/HCT (H&H) - STAT [id number] 16:30:00* Test Item Value Reference Range Comments HEMOGLOBIN (BEAKER) (test docz=233) 7.4 g/dL 13.0-16.8 HEMATOCRIT (BEAKER) (test itcv=696) 22.0 % 40.0-50.0 GLUCOSE-STAT [id number] 16:29:00* Test Item Value Reference Range Comments GLUCOSE RANDOM (BEAKER) (test nkcy=999) 93 mg/dL 70-110 SODIUM NA-STAT [id number] 16:29:00* Test Item Value Reference Range Comments SODIUM (BEAKER) (test vzme=181) 137 meq/L 135-148 POTASSIUM-STAT [id number] 16:29:00* Test Item Value Reference Range Comments POTASSIUM (BEAKER) (test qrlo=574) 5.5 meq/L 3.6-5.5 CALCIUM, [id number] 16:29:00* Test Item Value Reference Range Comments CALCIUM IONIZED (BEAKER) (test ysai=386) 1.31 mmol/L 1.12-1.27 PH, BLOOD (BEAKER) (test xpli=1884) 7.22 BLOOD GAS, [id number] 16:02:00* Test Item Value Reference Range Comments PH ARTERIAL (BEAKER) (test retp=570) 7.30 7.35-7.45 PCO2 ARTERIAL (BEAKER) (test mmqy=695) 41 mmHg 35-45 PO2 ARTERIAL (BEAKER) (test gegt=134) 256 mmHg 80-90 O2 SATURATION ARTERIAL (BEAKER) (test glus=512) 99.5 % 96.0-97.0 HCO3 ARTERIAL (BEAKER) (test rzeb=324) 19 mmol/L 21-29 BASE EXCESS ARTERIAL (BEAKER) (test ssua=052) -6.3 mmol/L -2.0-3.0 PATIENT TEMPERATURE (BEAKER) (test hztg=2294) 38.0 C FIO2 (BEAKER) (test fnpj=2349) 80.0 % SODIUM NA-STAT [id number] 16:02:00* Test Item Value Reference Range Comments SODIUM (BEAKER) (test dntl=574) 134 meq/L 135-148 POTASSIUM-STAT [id number] 16:02:00* Test Item Value Reference Range Comments POTASSIUM (BEAKER) (test sdfq=672) 5.6 meq/L 3.6-5.5 GLUCOSE-STAT [id number] 16:02:00* Test Item Value Reference Range Comments GLUCOSE RANDOM (BEAKER) (test yife=469) 165 mg/dL 70-110 HGB/HCT (H&H) - STAT [id number] 16:02:00* Test Item Value Reference Range Comments HEMOGLOBIN (BEAKER) (test jmji=603) 8.6 g/dL 13.0-16.8 HEMATOCRIT (BEAKER) (test ffdd=975) 25.0 % 40.0-50.0 POTASSIUM-STAT [id number] 15:34:00* Test Item Value Reference Range Comments POTASSIUM (BEAKER) (test frov=289) 6.0 meq/L 3.6-5.5 GLUCOSE-STAT [id number] 15:33:00* Test Item Value Reference Range Comments GLUCOSE RANDOM (BEAKER) (test vyux=274) 87 mg/dL 70-110 SODIUM NA-STAT [id number] 15:33:00* Test Item Value Reference Range Comments SODIUM (BEAKER) (test wrxj=255) 136 meq/L 135-148 BLOOD GAS, [id number] 15:33:00* Test Item Value Reference Range Comments PH ARTERIAL (BEAKER) (test doei=464) 7.34 7.35-7.45 PCO2 ARTERIAL (BEAKER) (test odrr=182) 38 mmHg 35-45 PO2 ARTERIAL (BEAKER) (test fxgp=644) 292 mmHg 80-90 O2 SATURATION ARTERIAL (BEAKER) (test cetq=687) 99.6 % 96.0-97.0 HCO3 ARTERIAL (BEAKER) (test smav=016) 20 mmol/L 21-29 BASE EXCESS ARTERIAL (BEAKER) (test thxy=204) -5.3 mmol/L -2.0-3.0 PATIENT TEMPERATURE (BEAKER) (test hgga=8826) 36.5 C FIO2 (BEAKER) (test ghli=7588) 80.0 % HGB/HCT (H&H) - STAT [id number] 15:33:00* Test Item Value Reference Range Comments HEMOGLOBIN (BEAKER) (test fdki=991) 7.2 g/dL 13.0-16.8 HEMATOCRIT (BEAKER) (test rpdi=583) 21.0 % 40.0-50.0 POTASSIUM-STAT [id number] 15:05:00* Test Item Value Reference Range Comments POTASSIUM (BEAKER) (test herf=179) 6.1 meq/L 3.6-5.5 GLUCOSE-STAT [id number] 15:04:00* Test Item Value Reference Range Comments GLUCOSE RANDOM (BEAKER) (test obkf=009) 104 mg/dL 70-110 SODIUM NA-STAT [id number] 15:04:00* Test Item Value Reference Range Comments SODIUM (BEAKER) (test eszv=947) 136 meq/L 135-148 BLOOD GAS, [id number] 15:04:00* Test Item Value Reference Range Comments PH ARTERIAL (BEAKER) (test mxzp=941) 7.39 7.35-7.45 PCO2 ARTERIAL (BEAKER) (test peeb=446) 35 mmHg 35-45 PO2 ARTERIAL (BEAKER) (test wmth=789) 240 mmHg 80-90 O2 SATURATION ARTERIAL (BEAKER) (test zejz=964) 99.5 % 96.0-97.0 HCO3 ARTERIAL (BEAKER) (test obal=450) 21 mmol/L 21-29 BASE EXCESS ARTERIAL (BEAKER) (test xcut=035) -3.7 mmol/L -2.0-3.0 PATIENT TEMPERATURE (BEAKER) (test vgsv=0625) 36.0 C FIO2 (BEAKER) (test qcbn=8205) 80.0 % HGB/HCT (H&H) - STAT [id number] 15:04:00* Test Item Value Reference Range Comments HEMOGLOBIN (BEAKER) (test fyud=769) 7.4 g/dL 13.0-16.8 HEMATOCRIT (BEAKER) (test uilv=649) 22.0 % 40.0-50.0 BLOOD GAS, [id number] 14:42:00* Test Item Value Reference Range Comments PH ARTERIAL (BEAKER) (test onqy=687) 7.39 7.35-7.45 PCO2 ARTERIAL (BEAKER) (test zhkf=593) 36 mmHg 35-45 PO2 ARTERIAL (BEAKER) (test ctyb=750) 289 mmHg 80-90 O2 SATURATION ARTERIAL (BEAKER) (test tlpg=186) 99.7 % 96.0-97.0 HCO3 ARTERIAL (BEAKER) (test tkjo=300) 22 mmol/L 21-29 BASE EXCESS ARTERIAL (BEAKER) (test cwbz=244) -3.3 mmol/L -2.0-3.0 PATIENT TEMPERATURE (BEAKER) (test qapt=7225) 36.0 C FIO2 (BEAKER) (test rfpn=7629) 80.0 % HGB/HCT (H&H) - STAT [id number] 14:42:00* Test Item Value Reference Range Comments HEMOGLOBIN (BEAKER) (test gpid=237) 7.2 g/dL 13.0-16.8 HEMATOCRIT (BEAKER) (test gcog=340) 21.0 % 40.0-50.0 GLUCOSE-STAT [id number] 14:41:00* Test Item Value Reference Range Comments GLUCOSE RANDOM (BEAKER) (test rxag=028) 75 mg/dL 70-110 SODIUM NA-STAT [id number] 14:41:00* Test Item Value Reference Range Comments SODIUM (BEAKER) (test wpdt=685) 137 meq/L 135-148 POTASSIUM-STAT [id number] 14:41:00* Test Item Value Reference Range Comments POTASSIUM (BEAKER) (test zlma=647) 5.5 meq/L 3.6-5.5 GLUCOSE-STAT [id number] 14:01:00* Test Item Value Reference Range Comments GLUCOSE RANDOM (BEAKER) (test zqnc=479) 76 mg/dL 70-110 SODIUM NA-STAT [id number] 14:01:00* Test Item Value Reference Range Comments SODIUM (BEAKER) (test gioa=409) 137 meq/L 135-148 POTASSIUM-STAT [id number] 14:01:00* Test Item Value Reference Range Comments POTASSIUM (BEAKER) (test bobg=547) 5.4 meq/L 3.6-5.5 BLOOD GAS, [id number] 14:01:00* Test Item Value Reference Range Comments PH ARTERIAL (BEAKER) (test hajb=013) 7.23 7.35-7.45 PCO2 ARTERIAL (BEAKER) (test qufo=646) 55 mmHg 35-45 PO2 ARTERIAL (BEAKER) (test cidl=790) 251 mmHg 80-90 O2 SATURATION ARTERIAL (BEAKER) (test gpfd=148) 99.4 % 96.0-97.0 HCO3 ARTERIAL (BEAKER) (test tubq=919) 23 mmol/L 21-29 BASE EXCESS ARTERIAL (BEAKER) (test xujg=236) -4.8 mmol/L -2.0-3.0 PATIENT TEMPERATURE (BEAKER) (test vcey=5107) 35.0 C FIO2 (BEAKER) (test lime=9298) 80.0 % HGB/HCT (H&H) - STAT [id number] 14:01:00* Test Item Value Reference Range Comments HEMOGLOBIN (BEAKER) (test peln=094) 7.9 g/dL 13.0-16.8 HEMATOCRIT (BEAKER) (test mjze=848) 23.0 % 40.0-50.0 GLUCOSE-STAT [id number] 13:36:00* Test Item Value Reference Range Comments GLUCOSE RANDOM (BEAKER) (test eykk=195) 105 mg/dL 70-110 POTASSIUM-STAT [id number] 13:36:00* Test Item Value Reference Range Comments POTASSIUM (BEAKER) (test dbys=364) 5.5 meq/L 3.6-5.5 BLOOD GAS, [id number] 13:36:00* Test Item Value Reference Range Comments PH ARTERIAL (BEAKER) (test gpcb=377) 7.48 7.35-7.45 PCO2 ARTERIAL (BEAKER) (test ucpo=685) 30 mmHg 35-45 PO2 ARTERIAL (BEAKER) (test vkfe=280) 408 mmHg 80-90 O2 SATURATION ARTERIAL (BEAKER) (test eoqd=871) 99.9 % 96.0-97.0 HCO3 ARTERIAL (BEAKER) (test bbew=305) 22 mmol/L 21-29 BASE EXCESS ARTERIAL (BEAKER) (test lqov=177) -1.7 mmol/L -2.0-3.0 PATIENT TEMPERATURE (BEAKER) (test xwlv=1091) 36.0 C FIO2 (BEAKER) (test apwd=7267) 100.0 % SODIUM NA-STAT [id number] 13:36:00* Test Item Value Reference Range Comments SODIUM (BEAKER) (test xzmm=332) 131 meq/L 135-148 HGB/HCT (H&H) - STAT [id number] 13:36:00* Test Item Value Reference Range Comments HEMOGLOBIN (BEAKER) (test ybfn=730) 7.7 g/dL 13.0-16.8 HEMATOCRIT (BEAKER) (test sddz=276) 23.0 % 40.0-50.0 SODIUM NA-STAT [id number] 13:27:00* Test Item Value Reference Range Comments SODIUM (BEAKER) (test cvte=122) 131 meq/L 135-148 HGB/HCT (H&H) - STAT [id number] 13:27:00* Test Item Value Reference Range Comments HEMOGLOBIN (BEAKER) (test duam=940) 8.0 g/dL 13.0-16.8 HEMATOCRIT (BEAKER) (test xtum=934) 24.0 % 40.0-50.0 BLOOD GAS, [id number] 13:27:00* Test Item Value Reference Range Comments PH ARTERIAL (BEAKER) (test cqyo=423) 7.40 7.35-7.45 PCO2 ARTERIAL (BEAKER) (test rbwh=123) 38 mmHg 35-45 PO2 ARTERIAL (BEAKER) (test nfms=653) 221 mmHg 80-90 O2 SATURATION ARTERIAL (BEAKER) (test beqn=352) 99.5 % 96.0-97.0 HCO3 ARTERIAL (BEAKER) (test mryo=331) 23 mmol/L 21-29 BASE EXCESS ARTERIAL (BEAKER) (test tree=660) -1.5 mmol/L -2.0-3.0 PATIENT TEMPERATURE (BEAKER) (test xlae=7116) 36.0 C FIO2 (BEAKER) (test vjps=5113) 100.0 % GLUCOSE-STAT [id number] 13:26:00* Test Item Value Reference Range Comments GLUCOSE RANDOM (BEAKER) (test lzqb=230) 107 mg/dL 70-110 POTASSIUM-STAT [id number] 13:26:00* Test Item Value Reference Range Comments POTASSIUM (BEAKER) (test gcww=688) 5.5 meq/L 3.6-5.5 BLOOD GAS, [id number] 13:25:00* Test Item Value Reference Range Comments PH ARTERIAL (BEAKER) (test xnrc=464) 7.36 7.35-7.45 PCO2 ARTERIAL (BEAKER) (test ljpa=377) 42 mmHg 35-45 PO2 ARTERIAL (BEAKER) (test gtez=711) 405 mmHg 80-90 O2 SATURATION ARTERIAL (BEAKER) (test fdmi=346) 99.8 % 96.0-97.0 HCO3 ARTERIAL (BEAKER) (test nunl=164) 24 mmol/L 21-29 BASE EXCESS ARTERIAL (BEAKER) (test fpil=113) -1.8 mmol/L -2.0-3.0 PATIENT TEMPERATURE (BEAKER) (test qohz=0627) 37.0 C FIO2 (BEAKER) (test fcuh=7040) 60.0 % SODIUM NA-STAT [id number] 13:25:00* Test Item Value Reference Range Comments SODIUM (BEAKER) (test ving=958) 131 meq/L 135-148 HGB/HCT (H&H) - STAT [id number] 13:25:00* Test Item Value Reference Range Comments HEMOGLOBIN (BEAKER) (test pqba=242) 7.8 g/dL 13.0-16.8 HEMATOCRIT (BEAKER) (test qesr=995) 23.0 % 40.0-50.0 GLUCOSE-STAT [id number] 13:24:00* Test Item Value Reference Range Comments GLUCOSE RANDOM (BEAKER) (test bspp=312) 107 mg/dL 70-110 POTASSIUM-STAT [id number] 13:24:00* Test Item Value Reference Range Comments POTASSIUM (BEAKER) (test nkkd=080) 5.4 meq/L 3.6-5.5 GLUCOSE-STAT [id number] 13:07:00* Test Item Value Reference Range Comments GLUCOSE RANDOM (BEAKER) (test jmct=281) 107 mg/dL 70-110 POTASSIUM-STAT [id number] 13:07:00* Test Item Value Reference Range Comments POTASSIUM (BEAKER) (test dkan=051) 5.3 meq/L 3.6-5.5 BLOOD GAS, [id number] 13:07:00* Test Item Value Reference Range Comments PH ARTERIAL (BEAKER) (test vwsh=370) 7.41 7.35-7.45 PCO2 ARTERIAL (BEAKER) (test tdxk=926) 37 mmHg 35-45 PO2 ARTERIAL (BEAKER) (test cskb=316) 147 mmHg 80-90 O2 SATURATION ARTERIAL (BEAKER) (test vlni=848) 99.0 % 96.0-97.0 HCO3 ARTERIAL (BEAKER) (test zjjo=991) 23 mmol/L 21-29 BASE EXCESS ARTERIAL (BEAKER) (test rylr=384) -1.8 mmol/L -2.0-3.0 PATIENT TEMPERATURE (BEAKER) (test gedy=6176) 36.0 C FIO2 (BEAKER) (test eamn=1118) 85.0 % SODIUM NA-STAT [id number] 13:07:00* Test Item Value Reference Range Comments SODIUM (BEAKER) (test hjst=028) 131 meq/L 135-148 HGB/HCT (H&H) - STAT [id number] 13:07:00* Test Item Value Reference Range Comments HEMOGLOBIN (BEAKER) (test nzij=795) 7.8 g/dL 13.0-16.8 HEMATOCRIT (BEAKER) (test gcyl=220) 23.0 % 40.0-50.0 BLOOD GAS, [id number] 12:34:00* Test Item Value Reference Range Comments PH ARTERIAL (BEAKER) (test rrbb=501) 7.46 7.35-7.45 PCO2 ARTERIAL (BEAKER) (test dhto=932) 34 mmHg 35-45 PO2 ARTERIAL (BEAKER) (test dcji=847) 188 mmHg 80-90 O2 SATURATION ARTERIAL (BEAKER) (test vuwx=978) 99.4 % 96.0-97.0 HCO3 ARTERIAL (BEAKER) (test qijq=061) 24 mmol/L 21-29 BASE EXCESS ARTERIAL (BEAKER) (test lisv=156) -0.4 mmol/L -2.0-3.0 PATIENT TEMPERATURE (BEAKER) (test mzob=1406) 36.0 C FIO2 (BEAKER) (test wyct=3896) 80.0 % GLUCOSE-STAT [id number] 12:34:00* Test Item Value Reference Range Comments GLUCOSE RANDOM (BEAKER) (test xcre=832) 111 mg/dL 70-110 SODIUM NA-STAT [id number] 12:34:00* Test Item Value Reference Range Comments SODIUM (BEAKER) (test cahq=074) 131 meq/L 135-148 HGB/HCT (H&H) - STAT [id number] 12:34:00* Test Item Value Reference Range Comments HEMOGLOBIN (BEAKER) (test xnbf=255) 8.0 g/dL 13.0-16.8 HEMATOCRIT (BEAKER) (test fkpr=082) 24.0 % 40.0-50.0 POTASSIUM-STAT [id number] 12:33:00* Test Item Value Reference Range Comments POTASSIUM (BEAKER) (test otel=686) 5.0 meq/L 3.6-5.5 BLOOD GAS, [id number] 12:06:00* Test Item Value Reference Range Comments PH ARTERIAL (BEAKER) (test ngjm=000) 7.43 7.35-7.45 PCO2 ARTERIAL (BEAKER) (test odhe=036) 36 mmHg 35-45 PO2 ARTERIAL (BEAKER) (test dbpt=333) 319 mmHg 80-90 O2 SATURATION ARTERIAL (BEAKER) (test tzys=420) 99.7 % 96.0-97.0 HCO3 ARTERIAL (BEAKER) (test pvhu=207) 24 mmol/L 21-29 BASE EXCESS ARTERIAL (BEAKER) (test utun=914) -0.6 mmol/L -2.0-3.0 PATIENT TEMPERATURE (BEAKER) (test nibw=4770) 36.0 C FIO2 (BEAKER) (test ggts=2576) 85.0 % SODIUM NA-STAT [id number] 12:06:00* Test Item Value Reference Range Comments SODIUM (BEAKER) (test khkf=846) 132 meq/L 135-148 GLUCOSE-STAT [id number] 12:06:00* Test Item Value Reference Range Comments GLUCOSE RANDOM (BEAKER) (test zwtm=801) 114 mg/dL 70-110 HGB/HCT (H&H) - STAT [id number] 12:06:00* Test Item Value Reference Range Comments HEMOGLOBIN (BEAKER) (test ztzc=326) 8.5 g/dL 13.0-16.8 HEMATOCRIT (BEAKER) (test bmqe=407) 25.0 % 40.0-50.0 POTASSIUM-STAT [id number] 12:05:00* Test Item Value Reference Range Comments POTASSIUM (BEAKER) (test awjv=028) 5.0 meq/L 3.6-5.5 BLOOD GAS, [id number] 11:43:00* Test Item Value Reference Range Comments PH ARTERIAL (BEAKER) (test qchn=191) 7.44 7.35-7.45 PCO2 ARTERIAL (BEAKER) (test nzvb=105) 36 mmHg 35-45 PO2 ARTERIAL (BEAKER) (test shob=246) 398 mmHg 80-90 O2 SATURATION ARTERIAL (BEAKER) (test htux=356) 99.8 % 96.0-97.0 HCO3 ARTERIAL (BEAKER) (test hxwb=362) 25 mmol/L 21-29 BASE EXCESS ARTERIAL (BEAKER) (test ukor=598) 0.1 mmol/L -2.0-3.0 PATIENT TEMPERATURE (BEAKER) (test tatq=8757) 35.0 C FIO2 (BEAKER) (test nbbc=1962) 90.0 % SODIUM NA-STAT [id number] 11:43:00* Test Item Value Reference Range Comments SODIUM (BEAKER) (test jaxt=282) 132 meq/L 135-148 HGB/HCT (H&H) - STAT [id number] 11:43:00* Test Item Value Reference Range Comments HEMOGLOBIN (BEAKER) (test czww=492) 7.5 g/dL 13.0-16.8 HEMATOCRIT (BEAKER) (test ydhj=731) 22.0 % 40.0-50.0 GLUCOSE-STAT [id number] 11:41:00* Test Item Value Reference Range Comments GLUCOSE RANDOM (BEAKER) (test kpuc=211) 98 mg/dL 70-110 POTASSIUM-STAT [id number] 11:41:00* Test Item Value Reference Range Comments POTASSIUM (BEAKER) (test ubjt=652) 5.5 meq/L 3.6-5.5 BLOOD GAS, [id number] 11:11:00* Test Item Value Reference Range Comments PH ARTERIAL (BEAKER) (test uicr=341) 7.40 7.35-7.45 PCO2 ARTERIAL (BEAKER) (test dcqz=923) 41 mmHg 35-45 PO2 ARTERIAL (BEAKER) (test fnto=093) 261 mmHg 80-90 O2 SATURATION ARTERIAL (BEAKER) (test gdjt=956) 99.6 % 96.0-97.0 HCO3 ARTERIAL (BEAKER) (test ngcm=907) 25 mmol/L 21-29 BASE EXCESS ARTERIAL (BEAKER) (test qnqf=522) 0.1 mmol/L -2.0-3.0 PATIENT TEMPERATURE (BEAKER) (test olsw=2685) 36.5 C FIO2 (BEAKER) (test zgio=2646) 80.0 % SODIUM NA-STAT [id number] 11:11:00* Test Item Value Reference Range Comments SODIUM (BEAKER) (test lmry=226) 131 meq/L 135-148 GLUCOSE-STAT [id number] 11:11:00* Test Item Value Reference Range Comments GLUCOSE RANDOM (BEAKER) (test ajsy=230) 111 mg/dL 70-110 HGB/HCT (H&H) - STAT [id number] 11:11:00* Test Item Value Reference Range Comments HEMOGLOBIN (BEAKER) (test onbc=892) 7.3 g/dL 13.0-16.8 HEMATOCRIT (BEAKER) (test fkgn=203) 21.0 % 40.0-50.0 POTASSIUM-STAT [id number] 11:10:00* Test Item Value Reference Range Comments POTASSIUM (BEAKER) (test mcpa=282) 4.3 meq/L 3.6-5.5 HGB/HCT (H&H) - STAT [id number] 10:35:00* Test Item Value Reference Range Comments HEMOGLOBIN (BEAKER) (test vcaq=489) 6.0 g/dL 13.0-16.8 HEMATOCRIT (BEAKER) (test uwfd=026) 18.0 % 40.0-50.0 SODIUM NA-STAT [id number] 10:35:00* Test Item Value Reference Range Comments SODIUM (BEAKER) (test mqad=423) 131 meq/L 135-148 BLOOD GAS, [id number] 10:35:00* Test Item Value Reference Range Comments PH ARTERIAL (BEAKER) (test ieci=827) 7.31 7.35-7.45 PCO2 ARTERIAL (BEAKER) (test dlov=565) 45 mmHg 35-45 PO2 ARTERIAL (BEAKER) (test mqrx=311) 295 mmHg 80-90 O2 SATURATION ARTERIAL (BEAKER) (test shmk=555) 99.6 % 96.0-97.0 HCO3 ARTERIAL (BEAKER) (test vtct=002) 23 mmol/L 21-29 BASE EXCESS ARTERIAL (BEAKER) (test yfen=623) -3.4 mmol/L -2.0-3.0 PATIENT TEMPERATURE (BEAKER) (test tvmo=9370) 36.5 C FIO2 (BEAKER) (test ixic=6525) 80.0 % GLUCOSE-STAT [id number] 10:34:00* Test Item Value Reference Range Comments GLUCOSE RANDOM (BEAKER) (test ybkc=878) 62 mg/dL 70-110 BLOOD GAS, [id number] 10:30:00* Test Item Value Reference Range Comments PH VENOUS (BEAKER) (test yncs=371) 7.29 7.32-7.42 PCO2 VENOUS (BEAKER) (test bbmb=526) 52 mmHg 41-51 PO2 VENOUS (BEAKER) (test ouqa=991) 31 mmHg 25-40 O2 SATURATION VENOUS (BEAKER) (test iodu=068) 52.8 % 40.0-70.0 HCO3 VENOUS (BEAKER) (test rcjh=243) 25 mmol/L 21-29 BASE EXCESS VENOUS (BEAKER) (test rwiw=176) -2.0 mmol/L -2.0-3.0 PATIENT TEMPERATURE (BEAKER) (test ndmh=4269) 36.5 C FIO2 (BEAKER) (test pvgn=8994) 80.0 % POTASSIUM-STAT [id number] 10:29:00* Test Item Value Reference Range Comments POTASSIUM (BEAKER) (test rogb=581) 4.0 meq/L 3.6-5.5 GLUCOSE-STAT [id number] 09:31:00* Test Item Value Reference Range Comments GLUCOSE RANDOM (BEAKER) (test mhzt=939) 74 mg/dL 70-110 POTASSIUM-STAT [id number] 09:31:00* Test Item Value Reference Range Comments POTASSIUM (BEAKER) (test ipxa=884) 3.6 meq/L 3.6-5.5 BLOOD GAS, [id number] 09:31:00* Test Item Value Reference Range Comments PH ARTERIAL (BEAKER) (test wewx=143) 7.42 7.35-7.45 PCO2 ARTERIAL (BEAKER) (test khap=350) 40 mmHg 35-45 PO2 ARTERIAL (BEAKER) (test dmqo=432) 361 mmHg 80-90 O2 SATURATION ARTERIAL (BEAKER) (test opht=938) 99.8 % 96.0-97.0 HCO3 ARTERIAL (BEAKER) (test yzgq=250) 25 mmol/L 21-29 BASE EXCESS ARTERIAL (BEAKER) (test pqor=322) 0.5 mmol/L -2.0-3.0 PATIENT TEMPERATURE (BEAKER) (test hrsb=5609) 38.5 C FIO2 (BEAKER) (test dxzi=3200) 90.0 % SODIUM NA-STAT [id number] 09:31:00* Test Item Value Reference Range Comments SODIUM (BEAKER) (test qekg=665) 128 meq/L 135-148 HGB/HCT (H&H) - STAT [id number] 09:31:00* Test Item Value Reference Range Comments HEMOGLOBIN (BEAKER) (test zcho=009) 8.0 g/dL 13.0-16.8 HEMATOCRIT (BEAKER) (test rzil=205) 24.0 % 40.0-50.0 BLOOD [id number] 09:30:00* Test Item Value Reference Range Comments CULTURE (BEAKER) (test uoym=1899) From Aerobic And Anaerobic Bottles Same organism has been isolated from cultures(s) of the same body site and collection date. Repeat identification and susceptibility testing performed only after consultation with the clinical microbiology laboratory.Refer to previous culture ofMethicillin resistant Staphylococcus aureus GRAM STAIN RESULT (BEAKER) (test cfyb=3295) From aerobic bottle only: gram positive cocci in clusters GRAM STAIN RESULT (BEAKER) (test diut=710068) From anaerobic bottle only: gram positive cocci in clusters CBC W/PLT COUNT & AUTO [id number] 09:29:00* Test Item Value Reference Range Comments WHITE BLOOD CELL COUNT (BEAKER) (test fcid=676) 15.7 K/ L 4.0-10.0 RED BLOOD CELL COUNT (BEAKER) (test dstq=791) 2.94 M/ L 4.20-5.80 HEMOGLOBIN (BEAKER) (test qvdq=325) 9.0 GM/DL 13.0-16.8 HEMATOCRIT (BEAKER) (test qlvj=388) 26.5 % 40.0-50.0 MEAN CORPUSCULAR VOLUME (BEAKER) (test bthp=057) 90.0 fL 82.0-98.0 MEAN CORPUSCULAR HEMOGLOBIN (BEAKER) (test uupu=823) 30.5 pg 27.0-33.0 MEAN CORPUSCULAR HEMOGLOBIN CONC (BEAKER) (test kwnn=822) 33.9 GM/DL 32.0- 36.0 RED CELL DISTRIBUTION WIDTH (BEAKER) (test gqbl=439) 26.7 % 10.3-14.2 PLATELET COUNT (BEAKER) (test xnpy=006) 55 K/CU MM 150-430 MEAN PLATELET VOLUME (BEAKER) (test olcz=448) 11.2 fL 6.5-10.5 NUCLEATED RED BLOOD CELLS (BEAKER) (test ilsp=792) 0 /100 WBC 0-0 NEUTROPHILS RELATIVE PERCENT (BEAKER) (test kqlp=562) 83 % LYMPHOCYTES RELATIVE PERCENT (BEAKER) (test dtub=997) 7 % MONOCYTES RELATIVE PERCENT (BEAKER) (test xamn=912) 9 % EOSINOPHILS RELATIVE PERCENT (BEAKER) (test glqh=857) 1 % BASOPHILS RELATIVE PERCENT (BEAKER) (test wlsz=002) 0 % NEUTROPHILS ABSOLUTE COUNT (BEAKER) (test uxmj=870) 13.00 K/ L 1.80-8.00 LYMPHOCYTES ABSOLUTE COUNT (BEAKER) (test oykt=677) 1.12 K/ L 1.48-4.50 MONOCYTES ABSOLUTE COUNT (BEAKER) (test etti=895) 1.38 K/ L 0.00-1.30 EOSINOPHILS ABSOLUTE COUNT (BEAKER) (test anvg=734) 0.13 K/ L 0.00-0.50 BASOPHILS ABSOLUTE COUNT (BEAKER) (test dbpp=722) 0.02 K/ L 0.00-0.20 0.000.670.000.000.690.000.000.000.000.000.000.680.000.000.790.000.000.000.00( MANUAL DIFFERENTIAL)2016-12-27 09:29:00* Test Item Value Reference Range Comments TOTAL COUNTED (BEAKER) (test updi=5158) WBC MORPHOLOGY (BEAKER) (test spev=878) Normal PLT MORPHOLOGY (BEAKER) (test mlqd=560) Normal SCHISTOCYTES (BEAKER) (test edjf=814) 2+ moderate POLYCHROMATOPHILLIC RBCS(BEAKER) (test qvnt=059) 1+ few PLATELET [id number] 09:27:00* Test Item Value Reference Range Comments PLATELET COUNT (BEAKER) (test jstv=050) 92 K/CU MM 150-430 BLOOD [id number] 08:32:00* Test Item Value Reference Range Comments CULTURE (BEAKER) (test tgre=7399) METHICILLIN RESISTANT STAPHYLOCOCCUS AUREUS From Aerobic And Anaerobic Bottles Methicillin resistant Staphylococcus aureus Ampicillin (test code=26) Ciprofloxacin (test code=7) Clindamycin (test code=10) Daptomycin (test code=59) Erythromycin (test code=4) Gentamicin (test code=18) Gentamicin High Level Synergy (test lwvu=191) Levofloxacin (test code=22) Linezolid (test code=40) Moxifloxacin (test code=36) Nitrofurantoin (test code=23) Oxacillin (test code=14) Rifampin (test code=43) Streptomycin High Level Synergy (test sdhj=032) Tetracycline (test code=2) Tigecycline (test byil=598) Trimethoprim + Sulfamethoxazole (test code=47) Vancomycin (test code=13) GRAM STAIN RESULT (BEAKER) (test rcik=9179) From aerobic and anaerobic bottles : gram positive cocci in clusters METHICILLIN-RESISTANT STAPH. AUREUS (MRSA) DETECTEDFirst line therapy: vancomycinID consultation strongly encouraged. Staphylococcus aureus DETECTED MecA DETECTEDTested at [facility] using the [employer] BCID Panel ([employer] | [place], [place]). This test has been FDA Approved and a verification was performed prior to clinical use. Reference Range : Not DetectedPOCT-GLUCOSE [id number] 08:13:00* Test Item Value Reference Range Comments POC-GLUCOSE METER (BEAKER) (test loao=3935) 88 mg/dL 70-[address] [facility] [address] [facility] [address] CBC W/PLT COUNT & AUTO [id number] 07:51:00* Test Item Value Reference Range Comments WHITE BLOOD CELL COUNT (BEAKER) (test lzwd=907) 14.6 K/ L 4.0-10.0 RED BLOOD CELL COUNT (BEAKER) (test lywp=336) 2.94 M/ L 4.20-5.80 HEMOGLOBIN (BEAKER) (test bkvu=828) 8.8 GM/DL 13.0-16.8 HEMATOCRIT (BEAKER) (test wtjg=034) 26.6 % 40.0-50.0 MEAN CORPUSCULAR VOLUME (BEAKER) (test guih=700) 90.4 fL 82.0-98.0 MEAN CORPUSCULAR HEMOGLOBIN (BEAKER) (test tpsj=427) 30.0 pg 27.0-33.0 MEAN CORPUSCULAR HEMOGLOBIN CONC (BEAKER) (test dyeo=746) 33.2 GM/DL 32.0- 36.0 RED CELL DISTRIBUTION WIDTH (BEAKER) (test zups=714) 26.1 % 10.3-14.2 PLATELET COUNT (BEAKER) (test qrgn=153) 34 K/CU MM 150-430 MEAN PLATELET VOLUME (BEAKER) (test gimb=187) 19.3 fL 6.5-10.5 NUCLEATED RED BLOOD CELLS (BEAKER) (test nfte=674) 0 /100 WBC 0-0 NEUTROPHILS RELATIVE PERCENT (BEAKER) (test bijn=536) 79 % LYMPHOCYTES RELATIVE PERCENT (BEAKER) (test vzrw=275) 8 % MONOCYTES RELATIVE PERCENT (BEAKER) (test vjij=239) 11 % EOSINOPHILS RELATIVE PERCENT (BEAKER) (test kfqz=041) 1 % BASOPHILS RELATIVE PERCENT (BEAKER) (test zbgt=765) 0 % NEUTROPHILS ABSOLUTE COUNT (BEAKER) (test qknm=310) 11.60 K/ L 1.80-8.00 LYMPHOCYTES ABSOLUTE COUNT (BEAKER) (test ytdf=125) 1.17 K/ L 1.48-4.50 MONOCYTES ABSOLUTE COUNT (BEAKER) (test wlkr=879) 1.66 K/ L 0.00-1.30 EOSINOPHILS ABSOLUTE COUNT (BEAKER) (test fujt=720) 0.17 K/ L 0.00-0.50 BASOPHILS ABSOLUTE COUNT (BEAKER) (test twdo=975) 0.03 K/ L 0.00-0.20 0.000.630.000.000.700.000.000.000.000.000.000.000.650.000.620.000.000.000.000.00 0.000.000.640.000.560.000.000.000.00 (MANUAL DIFFERENTIAL)2016-12-27 07:51:00* Test Item Value Reference Range Comments TOTAL COUNTED (BEAKER) (test cqmj=9353) WBC MORPHOLOGY (BEAKER) (test auzu=435) Normal PLT MORPHOLOGY (BEAKER) (test uabv=855) Normal SCHISTOCYTES (BEAKER) (test hxtf=442) 2+ moderate POLYCHROMATOPHILLIC RBCS(BEAKER) (test ksui=479) 1+ few VANCOMYCIN LEVEL, [id number] 07:34:00* Test Item Value Reference Range Comments VANCOMYCIN TROUGH (BEAKER) (test thme=569) 17.2 ug/mL 10.0-20.0 CARDIOLIPIN ANTIBODIES, IGG AND [id number] 06:02:00* Test Item Value Reference Range Comments ANTICARDIOLIPIN IGG ANTIBODY (BEAKER) (test rqpw=239) < GPL ANTICARDIOLIPIN IGM ANTIBODY (BEAKER) (test cgah=102) 0.8 MPL Anticardiolipin IgG Result Interpretation:NEG: <20 GPL; U/mlPOS: >/=20 GPL; U/mlAnticardiolipin IgM Result Interpretation:NEG: <20 MPL; U/mlPOS: >/=20 MPL; U/mlGAMMA GLUTAMYL TRANSFERASE (GGT)2016-12-27 05:28:00* Test Item Value Reference Range Comments GAMMA GLUTAMYL TRANSFERASE (BEAKER) (test odws=561) 71 U/L 9-64 Specimen markedly ictericBASIC METABOLIC [id number] 05:28:00* Test Item Value Reference Range Comments SODIUM (BEAKER) (test mcxo=121) 135 meq/L 136-145 POTASSIUM (BEAKER) (test ogul=847) 3.9 meq/L 3.5-5.1 CHLORIDE (BEAKER) (test tjkw=909) 99 meq/L 98-107 CO2 (BEAKER) (test aidj=360) 22 meq/L 22-29 BLOOD UREA NITROGEN (BEAKER) (test hvnm=259) 36 mg/dL 7-21 CREATININE (BEAKER) (test osnn=420) 5.52 mg/dL 0.57-1.25 GLUCOSE RANDOM (BEAKER) (test jykp=900) 84 mg/dL 70-105 CALCIUM (BEAKER) (test wjdi=538) 9.1 mg/dL 8.4-10.2 EGFR (BEAKER) (test eiba=9099) 12 mL/min/1.73 sq m ESTIMATED GFR IS NOT ACCURATE CREATININE CLEARANCE IN PREDICTING GLOMERULAR FILTRATION RATE. ESTIMATED GFR IS NOT APPLICABLE FOR DIALYSIS PATIENTS. Specimen markedly ictericHEPATIC FUNCTION [id number] 05:28:00* Test Item Value Reference Range Comments TOTAL PROTEIN (BEAKER) (test qwor=664) 6.0 gm/dL 6.0-8.3 ALBUMIN (BEAKER) (test ouap=0673) 2.8 g/dL 3.5-5.0 BILIRUBIN TOTAL (BEAKER) (test ruke=913) 20.6 mg/dL 0.2-1.2 BILIRUBIN DIRECT (BEAKER) (test zcws=152) 14.2 mg/dL 0.1-0.5 ALKALINE PHOSPHATASE (BEAKER) (test imbn=283) 78 U/L 40-150 AST (SGOT) (BEAKER) (test jrbe=076) 32 U/L 5-34 ALT (SGPT) (BEAKER) (test dvyj=372) 17 U/L 6-55 Specimen markedly ictericPROTHROMBIN [id number] 05:23:00* Test Item Value Reference Range Comments PROTIME (BEAKER) (test goog=506) 19.9 seconds 11.7-14.7 INR (BEAKER) (test ksbo=758) 1.7 <=5.9 RECOMMENDED COUMADIN/WARFARIN INR THERAPY RANGESSTANDARD DOSE: 2.0 - 3.0 Includes: PROPHYLAXIS for venous thrombosis, systemic embolization; TREATMENT for venous thrombosis and/or pulmonary embolus.HIGH RISK: Target INR is 2.5-3.5 for patients with mechanical heart valves.OCCULT BLOOD, [id number] 01:51:00 * Test Item Value Reference Range Comments FECAL OCCULT BLOOD (ZHANG) (test gszx=646) Negative Negative PROTHROMBIN TIME/[id number] 01:08:00* Test Item Value Reference Range Comments PROTIME (BEAKER) (test yyhn=464) 19.5 seconds 11.7-14.7 INR (BEAKER) (test ytnn=366) 1.7 <=5.9 RECOMMENDED COUMADIN/WARFARIN INR THERAPY RANGESSTANDARD DOSE: 2.0 - 3.0 Includes: PROPHYLAXIS for venous thrombosis, systemic embolization; TREATMENT for venous thrombosis and/or pulmonary embolus.HIGH RISK: Target INR is 2.5-3.5 for patients with mechanical heart valves.[id number] 01:08:00* Test Item Value Reference Range Comments FIBRINOGEN LEVEL (ALESSIAAKER) (test fsfa=249) 266 mg/dl 225-434 [id number] 01:08:00* Test Item Value Reference Range Comments PARTIAL THROMBOPLASTIN TIME (ALESSIAAKER) (test viuy=340) 47.3 seconds 22.5-36.0 POCT-GLUCOSE [id number] 22:41:00* Test Item Value Reference Range Comments POC-GLUCOSE METER (ZHANG) (test repr=3014) 82 mg/dL 70-[address] [facility] [address] [place] [id number] POCT-GLUCOSE [id number] 17:26:00* Test Item Value Reference Range Comments POC-GLUCOSE METER (BEAKER) (test plhs=8746) 135 mg/dL 70-110 TESTED AT [place] [id number] [facility] [id number] FIBRIN SOLUBLE [id number] 16:05:00* Test Item Value Reference Range Comments FIBRIN SOLUBLE MONOMER (BEAKER) (test crno=3674) Negative PLATELET [id number] 14:49:00* Test Item Value Reference Range Comments PLATELET COUNT (BEAKER) (test ejtz=153) 29 K/CU MM 150-430 THROMBOELASTOGRAPH (TEG)2016-12-26 13:53:00* Test Item Value Reference Range Comments TEG ACTIVATED CLOTTING TIME (BEAKER) (test lwbj=5681) 5.8 minutes 4.0-7.0 TEG FIBRINOGEN ACTIVITY (BEAKER) (test umup=7931) 66.7 degrees 61.0-73.0 TEG PLT. AGGREGATION (BEAKER) (test ncdc=3013) 47.7 MM 55.0-65.0 TEG FIBRINOLYSIS (BEAKER) (test kcqf=9680) 0.0 % 0.0-5.0 TGH ACTIVATED CLOTTING TIME (BEAKER) (test lfaz=4064) 6.1 minutes 4.0-7.0 TGH FIBRINOGEN ACTIVITY (BEAKER) (test tkxv=6145) 58.9 degrees 61.0-73.0 TGH PLT. AGGREGATION (BEAKER) (test yxml=8089) 38.2 MM 55.0-65.0 TGH FIBRINOLYSIS (BEAKER) (test bnad=3128) 0.3 % 0.0-5.0 POCT-GLUCOSE [id number] 12:36:00* Test Item Value Reference Range Comments POC-GLUCOSE METER (BEAKER) (test vivb=9889) 92 mg/dL 70-110 TESTED AT [place] [id number] [facility] [address] PERIPHERAL BLOOD SMEAR - PATHOLOGIST [id number] 12:32:00* Test Item Value Reference Range Comments RBC MORPHOLOGY (BEAKER) (test xmkx=3093) Anisocytosis RBC MORPHOLOGY (BEAKER) (test rfqx=68291) Poikilocytosis WBC MORPHOLOGY (BEAKER) (test fyej=7119) Toxic Granulation PERIPHERAL SMR REVIEW (BEAKER) (test snkz=3458) Cell counts confirmed. Red cell poikiocytosis includes occasional shistocytes. No platelet clumps identified. [id number] (BEAKER) (test xoax=6308) Alejandra Priest M.D. ( electronic signature) POCT-GLUCOSE [id number] 08:12:00* Test Item Value Reference Range Comments POC-GLUCOSE METER (BEAKER) (test ezaw=7194) 100 mg/dL 70-[address] [facility] [address] [facility] [address] CBC W/PLT COUNT & AUTO [id number] 07:59:00* Test Item Value Reference Range Comments WHITE BLOOD CELL COUNT (BEAKER) (test axra=703) 15.9 K/ L 4.0-10.0 RED BLOOD CELL COUNT (BEAKER) (test emmy=258) 3.10 M/ L 4.20-5.80 HEMOGLOBIN (BEAKER) (test oayq=521) 9.3 GM/DL 13.0-16.8 HEMATOCRIT (BEAKER) (test oudm=638) 28.6 % 40.0-50.0 MEAN CORPUSCULAR VOLUME (BEAKER) (test pkey=035) 92.1 fL 82.0-98.0 MEAN CORPUSCULAR HEMOGLOBIN (BEAKER) (test puoo=554) 30.0 pg 27.0-33.0 MEAN CORPUSCULAR HEMOGLOBIN CONC (BEAKER) (test zfbm=365) 32.6 GM/DL 32.0- 36.0 RED CELL DISTRIBUTION WIDTH (BEAKER) (test aeaz=221) 25.1 % 10.3-14.2 PLATELET COUNT (BEAKER) (test ifjd=331) 20 K/CU MM 150-430 MEAN PLATELET VOLUME (BEAKER) (test xzot=659) 15.2 fL 6.5-10.5 NUCLEATED RED BLOOD CELLS (BEAKER) (test lyvy=965) 0 /100 WBC 0-0 0.000.800.000.000.770.000.000.000.00(MANUAL DIFFERENTIAL)2016-12-26 07:59:00* Test Item Value Reference Range Comments NEUTROPHILS - REL (DIFF) (BEAKER) (test ynnb=4569) 80 % LYMPHOCYTES - REL (DIFF) (BEAKER) (test znch=1477) 4 % MONOCYTES - REL (DIFF) (BEAKER) (test rhdh=7413) 7 % EOSINOPHILS - REL (DIFF) (BEAKER) (test wyep=3916) 2 % BANDS - REL (DIFF) (BEAKER) (test akkn=6514) 7 % 0-10 NEUTROPHILS - ABS (DIFF) (BEAKER) (test psww=1334) 12.72 K/ L 1.80-8.00 LYMPHOCYTES - ABS (DIFF) (BEAKER) (test bkdc=4269) 0.64 K/ L 1.48-4.50 MONOCYTES - ABS (DIFF) (BEAKER) (test nova=1379) 1.11 K/ L 0.00-1.30 EOSINOPHILS - ABS (DIFF) (BEAKER) (test gcmw=8488) 0.32 K/ L 0.00-0.50 BANDS-ABS (DIFF) (BEAKER) (test itpk=7919) 1.1 K/ L 0.0-0.8 TOTAL COUNTED (BEAKER) (test xyxn=7036) 100 BANDS + SEGMENTED NEUTROPHILS (BEAKER) (test wzlv=8737) 13.83 WBC MORPHOLOGY (BEAKER) (test qsrd=759) Normal PLT MORPHOLOGY (BEAKER) (test nqsr=268) Normal SCHISTOCYTES (BEAKER) (test rudr=455) 2+ moderate POLYCHROMATOPHILLIC RBCS(BEAKER) (test imxi=269) 2+ moderate TEAR DROP CELLS (BEAKER) (test vbzm=115) 1+ few BASIC METABOLIC [id number] 05:33:00* Test Item Value Reference Range Comments SODIUM (BEAKER) (test fgoi=113) 136 meq/L 136-145 POTASSIUM (BEAKER) (test ompk=213) 3.4 meq/L 3.5-5.1 CHLORIDE (BEAKER) (test jddb=346) 98 meq/L 98-107 CO2 (BEAKER) (test wcyl=579) 22 meq/L 22-29 BLOOD UREA NITROGEN (BEAKER) (test rmdw=270) 45 mg/dL 7-21 CREATININE (BEAKER) (test eaxh=652) 6.53 mg/dL 0.57-1.25 GLUCOSE RANDOM (BEAKER) (test qjaz=746) 85 mg/dL 70-105 CALCIUM (BEAKER) (test thid=442) 8.7 mg/dL 8.4-10.2 EGFR (BEAKER) (test npwu=9728) 10 mL/min/1.73 sq m ESTIMATED GFR IS NOT ACCURATE CREATININE CLEARANCE IN PREDICTING GLOMERULAR FILTRATION RATE. ESTIMATED GFR IS NOT APPLICABLE FOR DIALYSIS PATIENTS. Specimen markedly ictericVANCOMYCIN LEVEL, [id number] 05:29:00* Test Item Value Reference Range Comments VANCOMYCIN RANDOM (BEAKER) (test vpmm=384) 22.6 ug/mL Reference Range: No NormalsHEPATIC FUNCTION [id number] 05:20:00* Test Item Value Reference Range Comments TOTAL PROTEIN (BEAKER) (test gotl=977) 5.3 gm/dL 6.0-8.3 ALBUMIN (BEAKER) (test egat=9755) 2.7 g/dL 3.5-5.0 BILIRUBIN TOTAL (BEAKER) (test ylax=824) 16.0 mg/dL 0.2-1.2 BILIRUBIN DIRECT (BEAKER) (test mdbs=476) 11.6 mg/dL 0.1-0.5 ALKALINE PHOSPHATASE (BEAKER) (test idmc=142) 73 U/L 40-150 AST (SGOT) (BEAKER) (test ukfj=272) 35 U/L 5-34 ALT (SGPT) (BEAKER) (test lvne=944) 16 U/L 6-55 Specimen markedly ictericPROTHROMBIN [id number] 05:00:00* Test Item Value Reference Range Comments PROTIME (BEAKER) (test hbce=286) 20.0 seconds 11.7-14.7 INR (BEAKER) (test twbw=005) 1.7 <=5.9 RECOMMENDED COUMADIN/WARFARIN INR THERAPY RANGESSTANDARD DOSE: 2.0 - 3.0 Includes: PROPHYLAXIS for venous thrombosis, systemic embolization; TREATMENT for venous thrombosis and/or pulmonary embolus.HIGH RISK: Target INR is 2.5-3.5 for patients with mechanical heart valves.[id number] 05:00:00* Test Item Value Reference Range Comments FIBRINOGEN LEVEL (BEAKER) (test hrci=723) 272 mg/dl 225-434 POCT-GLUCOSE [id number] 00:03:00* Test Item Value Reference Range Comments POC-GLUCOSE METER (BEAKER) (test ipmn=2147) 93 mg/dL 70-[address] [facility] [address] [facility] [address] POCT-GLUCOSE [id number] 19:13:00* Test Item Value Reference Range Comments POC-GLUCOSE METER (BEAKER) (test wrjr=8753) 111 mg/dL 70-[address] [facility] [address] [facility] [address] EQUAL MIX, NORMAL [id number] 13:50:00* Test Item Value Reference Range Comments PROTIME (BEAKER) (test psbp=166) 19.4 seconds 11.7-14.7 PARTIAL THROMBOPLASTIN TIME (BEAKER) (test ecww=170) 43.7 seconds 22.5-36.0 PT 1/1 MIX (BEAKER) (test ahge=4974) 15.1 SECS 11.7-14.7 PTT 1/1 MIX (BEAKER) (test fthy=8842) 40.6 SECS 22.5-36.0 RETICULOCYTE [id number] 12:51:00* Test Item Value Reference Range Comments RETICULOCYTE COUNT PCT (BEAKER) (test vbko=209) 1.4 % 0.4-2.9 CBC W/PLT COUNT & AUTO [id number] 09:35:00* Test Item Value Reference Range Comments WHITE BLOOD CELL COUNT (BEAKER) (test bnga=328) 16.4 K/ L 4.0-10.0 RED BLOOD CELL COUNT (BEAKER) (test gymp=301) 2.92 M/ L 4.20-5.80 HEMOGLOBIN (BEAKER) (test ermw=905) 9.0 GM/DL 13.0-16.8 HEMATOCRIT (BEAKER) (test hhns=501) 26.7 % 40.0-50.0 MEAN CORPUSCULAR VOLUME (BEAKER) (test yrys=011) 91.5 fL 82.0-98.0 MEAN CORPUSCULAR HEMOGLOBIN (BEAKER) (test qefj=107) 30.9 pg 27.0-33.0 MEAN CORPUSCULAR HEMOGLOBIN CONC (BEAKER) (test pqrd=367) 33.8 GM/DL 32.0- 36.0 RED CELL DISTRIBUTION WIDTH (BEAKER) (test gubr=160) 25.9 % 10.3-14.2 PLATELET COUNT (BEAKER) (test fwoh=462) 26 K/CU MM 150-430 MEAN PLATELET VOLUME (BEAKER) (test qutd=438) 20.0 fL 6.5-10.5 NUCLEATED RED BLOOD CELLS (BEAKER) (test ayti=031) 0 /100 WBC 0-0 0.000.860.550.000.900.000.000.000.00(MANUAL DIFFERENTIAL)2016-12-25 09:35:00* Test Item Value Reference Range Comments NEUTROPHILS - REL (DIFF) (BEAKER) (test umqk=4259) 81 % LYMPHOCYTES - REL (DIFF) (BEAKER) (test ynys=3048) 2 % MONOCYTES - REL (DIFF) (BEAKER) (test gcsm=7892) 4 % EOSINOPHILS - REL (DIFF) (BEAKER) (test dntj=6867) 2 % BANDS - REL (DIFF) (BEAKER) (test eclz=8954) 11 % 0-10 NEUTROPHILS - ABS (DIFF) (BEAKER) (test ycov=4915) 13.28 K/ L 1.80-8.00 LYMPHOCYTES - ABS (DIFF) (BEAKER) (test yohc=1825) 0.33 K/ L 1.48-4.50 MONOCYTES - ABS (DIFF) (BEAKER) (test rsjq=5043) 0.66 K/ L 0.00-1.30 EOSINOPHILS - ABS (DIFF) (BEAKER) (test fscf=9532) 0.33 K/ L 0.00-0.50 BANDS-ABS (DIFF) (BEAKER) (test ooau=2682) 1.8 K/ L 0.0-0.8 TOTAL COUNTED (BEAKER) (test ddnp=1762) 100 BANDS + SEGMENTED NEUTROPHILS (BEAKER) (test gpfk=4721) 15.09 WBC MORPHOLOGY (BEAKER) (test ixnw=156) Normal PLT MORPHOLOGY (BEAKER) (test rdsr=584) Normal SCHISTOCYTES (BEAKER) (test bpwt=179) 2+ moderate BRAYDEN CELLS (BEAKER) (test bofl=116) 1+ few POIKILOCYTES (BEAKER) (test ebbe=024) 1+ few RBC FRAGMENTS (BEAKER) (test gjxa=440) Moderate TROPONIN [id number] 05:00:00* Test Item Value Reference Range Comments TROPONIN I (BEAKER) (test qbly=174) 0.96 ng/mL 0.00-0.03 Effective 05/13/2014: Reference Range ChangeNew: 0.00-0.03 Previous 0.00- 0.15Troponin I (TnI) levels must be interpreted in the context of the presenting symptoms and the clinical findings. Elevated TnI levels indicate myocardial damage, but are not specific for ischemic heart disease. Elevated TnI levels are seen in patients with other cardiac conditions (including myocarditis and congestive heart failure), and slight TnI elevations occur in patients with other conditions, including sepsis, renal failure, acidosis, acute neurological disease, and persistent tachyarrhythmia.[id number] 04:42:00* Test Item Value Reference Range Comments HAPTOGLOBIN (BEAKER) (test rwlt=627) < mg/dL 14-258 Effective 05/13/2014: Reference Range ChangeNew: 14-258 Previous: 36- 195VANCOMYCIN LEVEL, [id number] 04:31:00* Test Item Value Reference Range Comments VANCOMYCIN RANDOM (BEAKER) (test idfj=964) 29.0 ug/mL Reference Range: No NormalsBASIC METABOLIC [id number] 04:22:00* Test Item Value Reference Range Comments SODIUM (BEAKER) (test jsbz=701) 134 meq/L 136-145 POTASSIUM (BEAKER) (test ihci=690) 3.3 meq/L 3.5-5.1 CHLORIDE (BEAKER) (test swhg=057) 97 meq/L 98-107 CO2 (BEAKER) (test ryxv=472) 23 meq/L 22-29 BLOOD UREA NITROGEN (BEAKER) (test jzvl=833) 33 mg/dL 7-21 CREATININE (BEAKER) (test pyai=886) 5.61 mg/dL 0.57-1.25 GLUCOSE RANDOM (BEAKER) (test jbvn=079) 84 mg/dL 70-105 CALCIUM (BEAKER) (test mzcu=142) 8.5 mg/dL 8.4-10.2 EGFR (BEAKER) (test ftdm=5443) 12 mL/min/1.73 sq m ESTIMATED GFR IS NOT ACCURATE CREATININE CLEARANCE IN PREDICTING GLOMERULAR FILTRATION RATE. ESTIMATED GFR IS NOT APPLICABLE FOR DIALYSIS PATIENTS. Specimen markedly ictericPROTHROMBIN TIME/[id number] 04:21:00* Test Item Value Reference Range Comments PROTIME (BEAKER) (test wsjo=520) 19.1 seconds 11.7-14.7 INR (BEAKER) (test jhux=147) 1.6 <=5.9 RECOMMENDED COUMADIN/WARFARIN INR THERAPY RANGESSTANDARD DOSE: 2.0 - 3.0 Includes: PROPHYLAXIS for venous thrombosis, systemic embolization; TREATMENT for venous thrombosis and/or pulmonary embolus.HIGH RISK: Target INR is 2.5-3.5 for patients with mechanical heart valves.[id number] 04:21:00* Test Item Value Reference Range Comments FIBRINOGEN LEVEL (BEAKER) (test fzxr=188) 306 mg/dl 225-434 LACTATE DEHYDROGENASE (LDH)2016-12-25 04:21:00* Test Item Value Reference Range Comments LACTATE DEHYDROGENASE (BEAKER) (test sekm=696) 412 U/L 125-220 HEPATIC FUNCTION [id number] 04:21:00* Test Item Value Reference Range Comments TOTAL PROTEIN (BEAKER) (test zmyx=304) 5.4 gm/dL 6.0-8.3 ALBUMIN (BEAKER) (test enck=9502) 2.9 g/dL 3.5-5.0 BILIRUBIN TOTAL (BEAKER) (test jmsy=133) 12.4 mg/dL 0.2-1.2 BILIRUBIN DIRECT (BEAKER) (test exhk=458) 9.3 mg/dL 0.1-0.5 ALKALINE PHOSPHATASE (BEAKER) (test mynl=054) 76 U/L 40-150 AST (SGOT) (BEAKER) (test bfef=504) 27 U/L 5-34 ALT (SGPT) (BEAKER) (test xasq=148) 14 U/L 6-55 Specimen markedly ictericBLOOD GAS, [id number] 21:20:00* Test Item Value Reference Range Comments PH ARTERIAL (BEAKER) (test jzmm=399) 7.54 7.35-7.45 PCO2 ARTERIAL (BEAKER) (test clfu=672) 29 mmHg 35-45 PO2 ARTERIAL (BEAKER) (test unlz=690) 118 mmHg 80-90 O2 SATURATION ARTERIAL (BEAKER) (test axxu=456) 98.7 % 96.0-97.0 HCO3 ARTERIAL (BEAKER) (test ndtj=894) 25 mmol/L 21-29 BASE EXCESS ARTERIAL (BEAKER) (test sspv=865) 2.6 mmol/L -2.0-3.0 PATIENT TEMPERATURE (BEAKER) (test xgoy=3913) 37.7 C FIO2 (BEAKER) (test nyhs=0134) 21.0 % CBC W/PLT COUNT & AUTO [id number] 20:44:00* Test Item Value Reference Range Comments WHITE BLOOD CELL COUNT (BEAKER) (test htuq=271) 14.6 K/ L 4.0-10.0 RED BLOOD CELL COUNT (BEAKER) (test lwrk=664) 3.12 M/ L 4.20-5.80 HEMOGLOBIN (BEAKER) (test jfpn=592) 9.7 GM/DL 13.0-16.8 HEMATOCRIT (BEAKER) (test quao=434) 28.5 % 40.0-50.0 MEAN CORPUSCULAR VOLUME (BEAKER) (test kglx=792) 91.5 fL 82.0-98.0 MEAN CORPUSCULAR HEMOGLOBIN (BEAKER) (test krvo=414) 31.1 pg 27.0-33.0 MEAN CORPUSCULAR HEMOGLOBIN CONC (BEAKER) (test yszt=902) 34.0 GM/DL 32.0- 36.0 RED CELL DISTRIBUTION WIDTH (BEAKER) (test uvrg=419) 26.1 % 10.3-14.2 PLATELET COUNT (BEAKER) (test knup=937) 24 K/CU MM 150-430 MEAN PLATELET VOLUME (BEAKER) (test xmin=007) 19.9 fL 6.5-10.5 NUCLEATED RED BLOOD CELLS (BEAKER) (test knjq=862) 0 /100 WBC 0-0 0.000.900.000.000.900.000.000.000.00(MANUAL DIFFERENTIAL)2016-12-24 20:44:00* Test Item Value Reference Range Comments NEUTROPHILS - REL (DIFF) (BEAKER) (test lrav=8155) 82 % LYMPHOCYTES - REL (DIFF) (BEAKER) (test fgpz=3080) 3 % MONOCYTES - REL (DIFF) (BEAKER) (test kjjv=5325) 6 % EOSINOPHILS - REL (DIFF) (BEAKER) (test zzsz=6063) 2 % BANDS - REL (DIFF) (BEAKER) (test mhoq=0317) 7 % 0-10 NEUTROPHILS - ABS (DIFF) (BEAKER) (test kecn=3460) 11.97 K/ L 1.80-8.00 LYMPHOCYTES - ABS (DIFF) (BEAKER) (test hfyi=9260) 0.44 K/ L 1.48-4.50 MONOCYTES - ABS (DIFF) (BEAKER) (test wrbw=0603) 0.88 K/ L 0.00-1.30 EOSINOPHILS - ABS (DIFF) (BEAKER) (test wxkq=9580) 0.29 K/ L 0.00-0.50 BANDS-ABS (DIFF) (BEAKER) (test bqto=3494) 1.0 K/ L 0.0-0.8 TOTAL COUNTED (BEAKER) (test fskf=7015) 100 BANDS + SEGMENTED NEUTROPHILS (BEAKER) (test wrmv=4376) 12.99 WBC MORPHOLOGY (BEAKER) (test xcii=098) Normal PLT MORPHOLOGY (BEAKER) (test ietf=565) Normal HYPOCHROMIA (BEAKER) (test quvh=929) 1+ few POIKILOCYTES (BEAKER) (test hagm=553) 1+ few TROPONIN [id number] 20:36:00* Test Item Value Reference Range Comments TROPONIN I (BEAKER) (test wbms=253) 0.74 ng/mL 0.00-0.03 Effective 05/13/2014: Reference Range ChangeNew: 0.00-0.03 Previous 0.00- 0.15Troponin I (TnI) levels must be interpreted in the context of the presenting symptoms and the clinical findings. Elevated TnI levels indicate myocardial damage, but are not specific for ischemic heart disease. Elevated TnI levels are seen in patients with other cardiac conditions (including myocarditis and congestive heart failure), and slight TnI elevations occur in patients with other conditions, including sepsis, renal failure, acidosis, acute neurological disease, and persistent tachyarrhythmia.CREATINE KINASE (CK) , TOTAL AND [id number] 20:29:00* Test Item Value Reference Range Comments CREATINE KINASE TOTAL (BEAKER) (test styv=668) 65 U/L 29-200 CREATINE KINASE-MB (BEAKER) (test zsmx=088) 1.5 ng/mL 0.0-6.6 CREATINE KINASE-MB INDEX (BEAKER) (test tdkc=422) 2.3 % Effective 05/13/2014: CK-MB Reference Range ChangeNew: 0.0-6.6 Previous: 0.0- 4.9CK-MB Reference Range:<6.7 Normal6.7-10.0 Borderline>10.0 AbnormalHEPATIC FUNCTION [id number] 20:22:00* Test Item Value Reference Range Comments TOTAL PROTEIN (BEAKER) (test tore=830) 5.7 gm/dL 6.0-8.3 ALBUMIN (BEAKER) (test zlfa=9870) 3.1 g/dL 3.5-5.0 BILIRUBIN TOTAL (BEAKER) (test nzrk=589) 12.4 mg/dL 0.2-1.2 BILIRUBIN DIRECT (BEAKER) (test ojqo=283) 9.1 mg/dL 0.1-0.5 ALKALINE PHOSPHATASE (BEAKER) (test nera=831) 78 U/L 40-150 AST (SGOT) (BEAKER) (test enlz=619) 34 U/L 5-34 ALT (SGPT) (BEAKER) (test titr=653) 15 U/L 6-55 Specimen markedly ictericLACTATE DEHYDROGENASE (LDH)2016-12-24 20:22:00* Test Item Value Reference Range Comments LACTATE DEHYDROGENASE (BEAKER) (test tivx=385) 462 U/L 125-220 [id number] 20:22:00* Test Item Value Reference Range Comments LIPASE (BEAKER) (test rksj=505) 35 U/L 8-78 Specimen markedly ictericBASIC METABOLIC [id number] 20:22:00* Test Item Value Reference Range Comments SODIUM (BEAKER) (test fxdv=857) 135 meq/L 136-145 POTASSIUM (BEAKER) (test vqwl=401) 3.3 meq/L 3.5-5.1 CHLORIDE (BEAKER) (test eync=542) 96 meq/L 98-107 CO2 (BEAKER) (test jokr=437) 23 meq/L 22-29 BLOOD UREA NITROGEN (BEAKER) (test gslh=972) 32 mg/dL 7-21 CREATININE (BEAKER) (test noac=255) 5.16 mg/dL 0.57-1.25 GLUCOSE RANDOM (BEAKER) (test rhsg=477) 88 mg/dL 70-105 CALCIUM (BEAKER) (test hocr=147) 8.9 mg/dL 8.4-10.2 EGFR (BEAKER) (test eqsr=8140) 13 mL/min/1.73 sq m ESTIMATED GFR IS NOT ACCURATE CREATININE CLEARANCE IN PREDICTING GLOMERULAR FILTRATION RATE. ESTIMATED GFR IS NOT APPLICABLE FOR DIALYSIS PATIENTS. Specimen markedly [id number] 20:20:00* Test Item Value Reference Range Comments HAPTOGLOBIN (BEAKER) (test ewez=083) < mg/dL 14-258 Effective 05/13/2014: Reference Range ChangeNew: 14-258 Previous: 36- 195VANCOMYCIN LEVEL, [id number] 20:17:00* Test Item Value Reference Range Comments VANCOMYCIN TROUGH (BEAKER) (test vqzz=600) 28.4 ug/mL 10.0-20.0 LACTIC ACID, VENOUS, WHOLE [id number] 20:16:00* Test Item Value Reference Range Comments LACTATE BLOOD VENOUS (2) (BEAKER) (test rfxf=7839) 2.6 mmol/L 0.5-2.2 Effective 10/28/2015: Units/Reference Range ChangeNew: 0.5-2.2 mmol/L Previous: 5 -20 mg/dLSpecimen markedly ictericPT/[id number] 20:15:00* Test Item Value Reference Range Comments PROTIME (BEAKER) (test lbse=183) 20.2 seconds 11.7-14.7 INR (BEAKER) (test aamd=510) 1.7 <=5.9 PARTIAL THROMBOPLASTIN TIME (BEAKER) (test aytg=315) 45.6 seconds 22.5-36.0 RECOMMENDED COUMADIN/WARFARIN INR THERAPY RANGESSTANDARD DOSE: 2.0 - 3.0 Includes: PROPHYLAXIS for venous thrombosis, systemic embolization; TREATMENT for venous thrombosis and/or pulmonary embolus.HIGH RISK: Target INR is 2.5-3.5 for patients with mechanical heart valves.PROTHROMBIN TIME/[id number] 20:14: 00* Test Item Value Reference Range Comments PROTIME (BEAKER) (test uhzr=783) 20.2 seconds 11.7-14.7 INR (BEAKER) (test hfsf=977) 1.7 <=5.9 RECOMMENDED COUMADIN/WARFARIN INR THERAPY RANGESSTANDARD DOSE: 2.0 - 3.0 Includes: PROPHYLAXIS for venous thrombosis, systemic embolization; TREATMENT for venous thrombosis and/or pulmonary embolus.HIGH RISK: Target INR is 2.5-3.5 for patients with mechanical heart valves.[id number] 20:14:00* Test Item Value Reference Range Comments FIBRINOGEN LEVEL (BEAKER) (test vbko=202) 287 mg/dl 225-434 BLOOD [id number] 11:00:00* Test Item Value Reference Range Comments CULTURE (BEAKER) (test iyth=3243) No growth in 5 days BLOOD [id number] 11:00:00* Test Item Value Reference Range Comments CULTURE (BEAKER) (test zqmn=3779) No growth in 5 days PLATELET [id number] 17:03:00* Test Item Value Reference Range Comments PLATELET COUNT (BEAKER) (test fdcb=857) 56 K/CU MM 150-430 HEPARIN [id number] 13:57:00* Test Item Value Reference Range Comments HEPARIN ANTIBODY (BEAKER) (test ledm=708) Negative Negative HEPARIN ANTIBODY OD (BEAKER) (test yadw=3166) 0.132 <0.400 4T TOTAL SCORE (BEAKER) (test uqnc=8371) 3 Probability of HIT based on scoring system: 6-8=High probability; 4-5= intermediate probability; 0-3=low probabilityPERIPHERAL BLOOD SMEAR - HOLD [id number] 11:43:00* Test Item Value Reference Range Comments PERIPHERAL SMEAR SAVE (BEAKER) (test ovtl=9716) saved BASIC METABOLIC [id number] 04:35:00* Test Item Value Reference Range Comments SODIUM (BEAKER) (test juwv=348) 136 meq/L 136-145 POTASSIUM (BEAKER) (test iqth=661) 3.8 meq/L 3.5-5.1 CHLORIDE (BEAKER) (test brsd=761) 98 meq/L 98-107 CO2 (BEAKER) (test avao=218) 25 meq/L 22-29 BLOOD UREA NITROGEN (BEAKER) (test dqhb=225) 26 mg/dL 7-21 CREATININE (BEAKER) (test riby=588) 4.47 mg/dL 0.57-1.25 GLUCOSE RANDOM (BEAKER) (test pqly=971) 94 mg/dL 70-105 CALCIUM (BEAKER) (test ajdv=599) 8.7 mg/dL 8.4-10.2 EGFR (BEAKER) (test bbza=1292) 15 mL/min/1.73 sq m ESTIMATED GFR IS NOT ACCURATE CREATININE CLEARANCE IN PREDICTING GLOMERULAR FILTRATION RATE. ESTIMATED GFR IS NOT APPLICABLE FOR DIALYSIS PATIENTS. Specimen slightly ictericLACTATE DEHYDROGENASE (LDH)2016-12-09 04:32:00* Test Item Value Reference Range Comments LACTATE DEHYDROGENASE (BEAKER) (test syrl=224) 718 U/L 125-220 BILIRUBIN, [id number] 04:32:00* Test Item Value Reference Range Comments BILIRUBIN DIRECT (BEAKER) (test tpra=651) 2.6 mg/dL 0.1-0.5 RETICULOCYTE [id number] 04:11:00* Test Item Value Reference Range Comments RETICULOCYTE COUNT PCT (BEAKER) (test uxqz=628) 5.4 % 0.4-2.9 CBC W/PLT COUNT & AUTO [id number] 04:10:00* Test Item Value Reference Range Comments WHITE BLOOD CELL COUNT (BEAKER) (test tiha=581) 6.9 K/ L 4.0-10.0 RED BLOOD CELL COUNT (BEAKER) (test kzsz=322) 3.50 M/ L 4.20-5.80 HEMOGLOBIN (BEAKER) (test jzpm=876) 10.5 GM/DL 13.0-16.8 HEMATOCRIT (BEAKER) (test pcrj=142) 33.3 % 40.0-50.0 MEAN CORPUSCULAR VOLUME (BEAKER) (test mnht=673) 95.1 fL 82.0-98.0 MEAN CORPUSCULAR HEMOGLOBIN (BEAKER) (test kvfe=675) 29.9 pg 27.0-33.0 MEAN CORPUSCULAR HEMOGLOBIN CONC (BEAKER) (test gfwp=929) 31.5 GM/DL 32.0- 36.0 RED CELL DISTRIBUTION WIDTH (BEAKER) (test bovk=713) 26.4 % 10.3-14.2 PLATELET COUNT (BEAKER) (test mods=960) 47 K/CU MM 150-430 MEAN PLATELET VOLUME (BEAKER) (test aukg=667) 6.3 fL 6.5-10.5 NUCLEATED RED BLOOD CELLS (BEAKER) (test zani=193) 0 /100 WBC 0-0 NEUTROPHILS RELATIVE PERCENT (BEAKER) (test rgde=385) 68 % LYMPHOCYTES RELATIVE PERCENT (BEAKER) (test mxzk=072) 17 % MONOCYTES RELATIVE PERCENT (BEAKER) (test nfsg=583) 10 % EOSINOPHILS RELATIVE PERCENT (BEAKER) (test pvph=185) 4 % BASOPHILS RELATIVE PERCENT (BEAKER) (test nrnr=134) 1 % NEUTROPHILS ABSOLUTE COUNT (BEAKER) (test nvoz=962) 4.64 K/ L 1.80-8.00 LYMPHOCYTES ABSOLUTE COUNT (BEAKER) (test nnex=869) 1.16 K/ L 1.48-4.50 MONOCYTES ABSOLUTE COUNT (BEAKER) (test mqfr=696) 0.71 K/ L 0.00-1.30 EOSINOPHILS ABSOLUTE COUNT (BEAKER) (test tqsk=079) 0.29 K/ L 0.00-0.50 BASOPHILS ABSOLUTE COUNT (BEAKER) (test exhf=375) 0.06 K/ L 0.00-0.20 VITAMIN B12 AND [id number] 14:53:00* Test Item Value Reference Range Comments VITAMIN B12 (BEAKER) (test ydsy=460) 854 pg/mL 213-816 FOLATE (BEAKER) (test cilh=051) 8.7 ng/mL >=7.0 Effective 05/13/2014: Folate Reference Range ChangeNew: >=7.0 Previous: >= 5.4HEPATITIS PANEL, [id number] 14:19:00* Test Item Value Reference Range Comments HEPATITIS A IGM ANTIBODY (BEAKER) (test tskx=524) Nonreactive Nonreactive HEPATITIS B CORE IGM ANTIBODY (BEAKER) (test yrvp=367) Nonreactive Nonreactive HEPATITIS C ANTIBODY (BEAKER) (test aayt=636) Nonreactive Nonreactive HEPATITIS B SURFACE ANTIGEN (2) (BEAKER) (test mlwj=6089) Nonreactive Nonreactive POCT-GLUCOSE [id number] 13:56:00* Test Item Value Reference Range Comments POC-GLUCOSE METER (BEAKER) (test pqej=2159) 112 mg/dL 70-[address] [facility] [address] [facility] [address] HIV-1 ANTIGEN WITH HIV-1/2 [id number] 13:25:00* Test Item Value Reference Range Comments HIV-1 ANTIGEN WITH HIV 1\\T\\2 ANTIBODY (2) (BEAKER) (test zksl=8648) Nonreactive Nonreactive [id number] 13:19:00* Test Item Value Reference Range Comments FERRITIN (BEAKER) (test ugvi=273) 395 ng/mL 5-275 Effective 05/13/2014: Reference Range ChangeNew: Male 5-275 Previous: Male 22-322 Female 5-275 Female 10-291 IRON, TIBC, % SAT. ( WITHOUT FERRITIN)2016-12-08 12:59:00* Test Item Value Reference Range Comments IRON (BEAKER) (test slmc=105) 23 ug/dL 40-160 TOTAL IRON BINDING CAPACITY (BEAKER) (test vrkk=975) 176 ug/dL 250-450 IRON % SATURATION (2) (BEAKER) (test sscb=6254) 13 % 20-55 [id number] 12:54:00* Test Item Value Reference Range Comments D-DIMER QUANTITATIVE (BEAKER) (test mtzg=933) 3.79 MG/L FEU <0.50 Intended Use: The D-Dimer Assay can be used to aid in the diagnosis of Deep Vein Thrombosis (DVT) and Pulmonary Embolism Disease (PED).In patients with low pre-test probability, various studies concerning STA Liatest D-dimer test have reported that with a cutoff value of 0.50 MG/L FEU, the Negative Predictive Value (NPV) regarding the exclusion of thrombosis is within 95-100% range.PT/ [id number] 12:51:00* Test Item Value Reference Range Comments PROTIME (BEAKER) (test iwqe=655) 17.4 seconds 11.7-14.7 INR (BEAKER) (test ychl=334) 1.4 <=5.9 PARTIAL THROMBOPLASTIN TIME (BEAKER) (test wzur=572) 40.5 seconds 22.5-36.0 RECOMMENDED COUMADIN/WARFARIN INR THERAPY RANGESSTANDARD DOSE: 2.0 - 3.0 Includes: PROPHYLAXIS for venous thrombosis, systemic embolization; TREATMENT for venous thrombosis and/or pulmonary embolus.HIGH RISK: Target INR is 2.5-3.5 for patients with mechanical heart valves.[id number] 12:50:00* Test Item Value Reference Range Comments FIBRINOGEN LEVEL (BEAKER) (test ymsx=787) 263 mg/dl 225-434 POCT-GLUCOSE [id number] 09:05:00* Test Item Value Reference Range Comments POC-GLUCOSE METER (BEAKER) (test hojf=8792) 90 mg/dL 70-[address] [facility] [address] [facility] [address] CBC W/PLT COUNT & AUTO [id number] 08:48:00* Test Item Value Reference Range Comments WHITE BLOOD CELL COUNT (BEAKER) (test ahyh=060) 7.3 K/ L 4.0-10.0 RED BLOOD CELL COUNT (BEAKER) (test cdyj=599) 2.98 M/ L 4.20-5.80 HEMOGLOBIN (BEAKER) (test ndpx=626) 9.1 GM/DL 13.0-16.8 HEMATOCRIT (BEAKER) (test uqre=325) 28.8 % 40.0-50.0 MEAN CORPUSCULAR VOLUME (BEAKER) (test ydns=657) 96.6 fL 82.0-98.0 MEAN CORPUSCULAR HEMOGLOBIN (BEAKER) (test zrwb=676) 30.7 pg 27.0-33.0 MEAN CORPUSCULAR HEMOGLOBIN CONC (BEAKER) (test stby=211) 31.8 GM/DL 32.0- 36.0 RED CELL DISTRIBUTION WIDTH (BEAKER) (test ptuh=571) 27.1 % 10.3-14.2 PLATELET COUNT (BEAKER) (test lccv=552) 57 K/CU MM 150-430 MEAN PLATELET VOLUME (BEAKER) (test dext=213) 7.1 fL 6.5-10.5 NUCLEATED RED BLOOD CELLS (BEAKER) (test ishj=514) 0 /100 WBC 0-0 NEUTROPHILS RELATIVE PERCENT (BEAKER) (test qisw=304) 69 % LYMPHOCYTES RELATIVE PERCENT (BEAKER) (test ctrg=866) 16 % MONOCYTES RELATIVE PERCENT (BEAKER) (test mnkt=630) 9 % EOSINOPHILS RELATIVE PERCENT (BEAKER) (test jtyf=975) 5 % BASOPHILS RELATIVE PERCENT (BEAKER) (test etgs=904) 1 % NEUTROPHILS ABSOLUTE COUNT (BEAKER) (test vqxz=158) 5.00 K/ L 1.80-8.00 LYMPHOCYTES ABSOLUTE COUNT (BEAKER) (test qvdm=230) 1.17 K/ L 1.48-4.50 MONOCYTES ABSOLUTE COUNT (BEAKER) (test fzno=519) 0.67 K/ L 0.00-1.30 EOSINOPHILS ABSOLUTE COUNT (BEAKER) (test ltnd=274) 0.38 K/ L 0.00-0.50 BASOPHILS ABSOLUTE COUNT (BEAKER) (test fdsb=249) 0.05 K/ L 0.00-0.20 0.00COMPREHENSIVE METABOLIC [id number] 08:02:00* Test Item Value Reference Range Comments TOTAL PROTEIN (BEAKER) (test plmr=012) 5.7 gm/dL 6.0-8.3 ALBUMIN (BEAKER) (test brru=7435) 2.9 g/dL 3.5-5.0 ALKALINE PHOSPHATASE (BEAKER) (test rdfi=551) 131 U/L 40-150 BILIRUBIN TOTAL (BEAKER) (test novp=436) 3.3 mg/dL 0.2-1.2 SODIUM (BEAKER) (test gxia=225) 137 meq/L 136-145 POTASSIUM (BEAKER) (test oapk=992) 3.9 meq/L 3.5-5.1 CHLORIDE (BEAKER) (test tfbu=725) 100 meq/L 98-107 CO2 (BEAKER) (test gzlk=803) 28 meq/L 22-29 BLOOD UREA NITROGEN (BEAKER) (test aizm=179) 30 mg/dL 7-21 CREATININE (BEAKER) (test mmqk=882) 5.18 mg/dL 0.57-1.25 GLUCOSE RANDOM (BEAKER) (test inho=825) 82 mg/dL 70-105 CALCIUM (BEAKER) (test saog=350) 8.6 mg/dL 8.4-10.2 AST (SGOT) (BEAKER) (test mwtb=863) 139 U/L 5-34 ALT (SGPT) (BEAKER) (test kzqd=314) 152 U/L 6-55 EGFR (BEAKER) (test ixmm=9829) 13 mL/min/1.73 sq m ESTIMATED GFR IS NOT ACCURATE CREATININE CLEARANCE IN PREDICTING GLOMERULAR FILTRATION RATE. ESTIMATED GFR IS NOT APPLICABLE FOR DIALYSIS PATIENTS. Specimen slightly ictericPOCT-GLUCOSE [id number] 21:22:00* Test Item Value Reference Range Comments POC-GLUCOSE METER (BEAKER) (test wefc=7721) 98 mg/dL 70-110 TESTED AT [address] [address] POCT-GLUCOSE [id number] 18:21:00* Test Item Value Reference Range Comments POC-GLUCOSE METER (BEAKER) (test enmw=5911) 102 mg/dL 70-110 TESTED AT [address] [address] POCT-GLUCOSE [id number] 13:31:00* Test Item Value Reference Range Comments POC-GLUCOSE METER (BEAKER) (test icfd=0376) 20 mg/dL 70-110 Notified ZENON SYED/ TESTED AT [address] [address] POCT-GLUCOSE [id number] 13:30:00* Test Item Value Reference Range Comments POC-GLUCOSE METER (BEAKER) (test xfti=1238) 61 mg/dL 70-110 TESTED AT [address] [address] POCT-GLUCOSE [id number] 08:27:00* Test Item Value Reference Range Comments POC-GLUCOSE METER (BEAKER) (test casb=3076) 92 mg/dL 70-110 TESTED AT [address] [address] CBC W/PLT COUNT & AUTO [id number] 08:05:00* Test Item Value Reference Range Comments WHITE BLOOD CELL COUNT (BEAKER) (test octy=988) 7.4 K/ L 4.0-10.0 RED BLOOD CELL COUNT (BEAKER) (test ntef=671) 3.06 M/ L 4.20-5.80 HEMOGLOBIN (BEAKER) (test uvmm=094) 9.1 GM/DL 13.0-16.8 HEMATOCRIT (BEAKER) (test dttj=584) 29.3 % 40.0-50.0 MEAN CORPUSCULAR VOLUME (BEAKER) (test slrt=484) 95.6 fL 82.0-98.0 MEAN CORPUSCULAR HEMOGLOBIN (BEAKER) (test ilee=057) 29.7 pg 27.0-33.0 MEAN CORPUSCULAR HEMOGLOBIN CONC (BEAKER) (test josd=465) 31.1 GM/DL 32.0- 36.0 RED CELL DISTRIBUTION WIDTH (BEAKER) (test xohs=336) 27.8 % 10.3-14.2 PLATELET COUNT (BEAKER) (test noks=362) 70 K/CU MM 150-430 MEAN PLATELET VOLUME (BEAKER) (test tdpt=152) 7.3 fL 6.5-10.5 NUCLEATED RED BLOOD CELLS (BEAKER) (test nflo=279) 0 /100 WBC 0-0 NEUTROPHILS RELATIVE PERCENT (BEAKER) (test mwud=637) 70 % LYMPHOCYTES RELATIVE PERCENT (BEAKER) (test nbpd=264) 16 % MONOCYTES RELATIVE PERCENT (BEAKER) (test rmng=032) 9 % EOSINOPHILS RELATIVE PERCENT (BEAKER) (test rwjb=668) 5 % BASOPHILS RELATIVE PERCENT (BEAKER) (test mdeg=306) 1 % NEUTROPHILS ABSOLUTE COUNT (BEAKER) (test pvlc=011) 5.13 K/ L 1.80-8.00 LYMPHOCYTES ABSOLUTE COUNT (BEAKER) (test lamb=182) 1.15 K/ L 1.48-4.50 MONOCYTES ABSOLUTE COUNT (BEAKER) (test acuq=386) 0.67 K/ L 0.00-1.30 EOSINOPHILS ABSOLUTE COUNT (BEAKER) (test migu=243) 0.34 K/ L 0.00-0.50 BASOPHILS ABSOLUTE COUNT (BEAKER) (test orop=343) 0.08 K/ L 0.00-0.20 0.00BASI METABOLIC [id number] 07:55:00* Test Item Value Reference Range Comments SODIUM (BEAKER) (test bofj=694) 139 meq/L 136-145 POTASSIUM (BEAKER) (test qotg=012) 3.5 meq/L 3.5-5.1 CHLORIDE (BEAKER) (test ljoa=403) 104 meq/L 98-107 CO2 (BEAKER) (test hqee=711) 23 meq/L 22-29 BLOOD UREA NITROGEN (BEAKER) (test qedc=248) 45 mg/dL 7-21 CREATININE (BEAKER) (test amsi=975) 6.45 mg/dL 0.57-1.25 GLUCOSE RANDOM (BEAKER) (test jtpo=916) 80 mg/dL 70-105 CALCIUM (BEAKER) (test rlxl=387) 8.1 mg/dL 8.4-10.2 EGFR (BEAKER) (test zxve=7383) 10 mL/min/1.73 sq m ESTIMATED GFR IS NOT ACCURATE CREATININE CLEARANCE IN PREDICTING GLOMERULAR FILTRATION RATE. ESTIMATED GFR IS NOT APPLICABLE FOR DIALYSIS PATIENTS. Specimen slightly ictericBASIC METABOLIC [id number] 07:55:00* Test Item Value Reference Range Comments SODIUM (BEAKER) (test pldm=273) 138 meq/L 136-145 POTASSIUM (BEAKER) (test xhyr=084) 3.7 meq/L 3.5-5.1 CHLORIDE (BEAKER) (test eesq=552) 100 meq/L 98-107 CO2 (BEAKER) (test xczg=085) 25 meq/L 22-29 BLOOD UREA NITROGEN (BEAKER) (test pbje=490) 48 mg/dL 7-21 CREATININE (BEAKER) (test kdmc=687) 6.99 mg/dL 0.57-1.25 GLUCOSE RANDOM (BEAKER) (test lesz=905) 85 mg/dL 70-105 CALCIUM (BEAKER) (test qljp=335) 8.7 mg/dL 8.4-10.2 EGFR (BEAKER) (test gdub=5495) 9 mL/min/1.73 sq m ESTIMATED GFR IS NOT ACCURATE CREATININE CLEARANCE IN PREDICTING GLOMERULAR FILTRATION RATE. ESTIMATED GFR IS NOT APPLICABLE FOR DIALYSIS PATIENTS. Specimen slightly [id number] 07:54:00* Test Item Value Reference Range Comments PHOSPHORUS (BEAKER) (test jcav=033) 5.3 mg/dL 2.3-4.7 [id number] 07:54:00* Test Item Value Reference Range Comments MAGNESIUM (BEAKER) (test okhp=499) 1.5 mg/dL 1.6-2.6 [id number] 07:53:00* Test Item Value Reference Range Comments PHOSPHORUS (BEAKER) (test mshn=931) 5.7 mg/dL 2.3-4.7 [id number] 07:53:00* Test Item Value Reference Range Comments MAGNESIUM (BEAKER) (test rtdp=900) 1.7 mg/dL 1.6-2.6 PROTHROMBIN TIME/[id number] 07:39:00* Test Item Value Reference Range Comments PROTIME (BEAKER) (test yljp=089) 19.1 seconds 11.7-14.7 INR (BEAKER) (test glme=916) 1.6 <=5.9 RECOMMENDED COUMADIN/WARFARIN INR THERAPY RANGESSTANDARD DOSE: 2.0 - 3.0 Includes: PROPHYLAXIS for venous thrombosis, systemic embolization; TREATMENT for venous thrombosis and/or pulmonary embolus.HIGH RISK: Target INR is 2.5-3.5 for patients with mechanical heart valves.POCT-GLUCOSE [id number] 02:38:00 * Test Item Value Reference Range Comments POC-GLUCOSE METER (BEAKER) (test pjho=9028) 87 mg/dL 70-110 TESTED AT [address] [address] POCT-GLUCOSE [id number] 21:23:00* Test Item Value Reference Range Comments POC-GLUCOSE METER (BEAKER) (test bwet=9878) 99 mg/dL 70-110 TESTED AT [address] [address] POCT-GLUCOSE [id number] 12:49:00* Test Item Value Reference Range Comments POC-GLUCOSE METER (BEAKER) (test zssc=5309) 103 mg/dL 70-110 TESTED AT [address] [address] POCT-GLUCOSE [id number] 07:49:00* Test Item Value Reference Range Comments POC-GLUCOSE METER (BEAKER) (test ghkw=5127) 97 mg/dL 70-110 TESTED AT [address] [address] POCT-GLUCOSE [id number] 20:44:00* Test Item Value Reference Range Comments POC-GLUCOSE METER (BEAKER) (test thie=6442) 109 mg/dL 70-110 TESTED AT [address] [address] POCT-GLUCOSE [id number] 18:39:00* Test Item Value Reference Range Comments POC-GLUCOSE METER (BEAKER) (test uimw=2763) 104 mg/dL 70-110 TESTED AT [address] [address] [id number] 16:12:00* Test Item Value Reference Range Comments D-DIMER QUANTITATIVE (BEAKER) (test sych=391) 4.74 MG/L FEU <0.50 Intended Use: The D-Dimer Assay can be used to aid in the diagnosis of Deep Vein Thrombosis (DVT) and Pulmonary Embolism Disease (PED).In patients with low pre-test probability, various studies concerning STA Liatest D-dimer test have reported that with a cutoff value of 0.50 MG/L FEU, the Negative Predictive Value (NPV) regarding the exclusion of thrombosis is within 95-100% range.LACTATE DEHYDROGENASE (LDH)2016-12-05 16:11:00* Test Item Value Reference Range Comments LACTATE DEHYDROGENASE (BEAKER) (test qglj=280) 1536 U/L 125-220 [id number] 16:10:00* Test Item Value Reference Range Comments HAPTOGLOBIN (BEAKER) (test tker=386) < mg/dL 14-258 Effective 05/13/2014: Reference Range ChangeNew: 14-258 Previous: 36- [id number] 16:01:00* Test Item Value Reference Range Comments FIBRINOGEN LEVEL (BEAKER) (test ccct=836) 315 mg/dl 225-434 POCT-GLUCOSE [id number] 14:35:00* Test Item Value Reference Range Comments POC-GLUCOSE METER (BEAKER) (test ebkb=8919) 95 mg/dL 70-110 TESTED AT [address] [address] HEPATITIS B SURFACE [id number] 14:26:00* Test Item Value Reference Range Comments HEPATITIS B SURFACE ANTIGEN (2) (BEAKER) (test cjre=1767) Nonreactive Nonreactive BASIC METABOLIC [id number] 14:10:00* Test Item Value Reference Range Comments SODIUM (BEAKER) (test xkmr=378) 130 meq/L 136-145 POTASSIUM (BEAKER) (test utio=262) 6.8 meq/L 3.5-5.1 Specimen slightly hemolyzed CHLORIDE (BEAKER) (test hxvl=849) 95 meq/L 98-107 CO2 (BEAKER) (test mfcn=830) 12 meq/L 22-29 BLOOD UREA NITROGEN (BEAKER) (test ovno=908) 70 mg/dL 7-21 CREATININE (BEAKER) (test asxi=275) 8.32 mg/dL 0.57-1.25 Specimen slightly hemolyzed GLUCOSE RANDOM (BEAKER) (test vvbx=533) 92 mg/dL 70-105 CALCIUM (BEAKER) (test ikdk=577) 9.8 mg/dL 8.4-10.2 EGFR (BEAKER) (test qdss=7150) 7 mL/min/1.73 sq m ESTIMATED GFR IS NOT ACCURATE CREATININE CLEARANCE IN PREDICTING GLOMERULAR FILTRATION RATE. ESTIMATED GFR IS NOT APPLICABLE FOR DIALYSIS PATIENTS. Specimen slightly ictericPOCT-GLUCOSE [id number] 12:58:00* Test Item Value Reference Range Comments POC-GLUCOSE METER (BEAKER) (test yvsp=3932) 76 mg/dL 70-[address] [facility] [address] [facility] [address] POCT-GLUCOSE [id number] 11:50:00* Test Item Value Reference Range Comments POC-GLUCOSE METER (BEAKER) (test ssyu=7391) 52 mg/dL 70-[address] [facility] [address] [facility] [address] CBC W/PLT COUNT & AUTO [id number] 10:43:00* Test Item Value Reference Range Comments WHITE BLOOD CELL COUNT (BEAKER) (test ulfl=844) 11.0 K/ L 4.0-10.0 RED BLOOD CELL COUNT (BEAKER) (test yvtj=993) 3.76 M/ L 4.20-5.80 HEMOGLOBIN (BEAKER) (test qqrj=114) 11.1 GM/DL 13.0-16.8 HEMATOCRIT (BEAKER) (test qosv=643) 36.2 % 40.0-50.0 MEAN CORPUSCULAR VOLUME (BEAKER) (test xeoo=707) 96.1 fL 82.0-98.0 MEAN CORPUSCULAR HEMOGLOBIN (BEAKER) (test ypkw=990) 29.6 pg 27.0-33.0 MEAN CORPUSCULAR HEMOGLOBIN CONC (BEAKER) (test ktha=835) 30.8 GM/DL 32.0- 36.0 RED CELL DISTRIBUTION WIDTH (BEAKER) (test vnvf=635) 27.3 % 10.3-14.2 PLATELET COUNT (BEAKER) (test hzzw=695) 64 K/CU MM 150-430 MEAN PLATELET VOLUME (BEAKER) (test ltyw=372) 8.5 fL 6.5-10.5 NUCLEATED RED BLOOD CELLS (BEAKER) (test daey=470) 0 /100 WBC 0-0 NEUTROPHILS RELATIVE PERCENT (BEAKER) (test kpqq=131) 73 % LYMPHOCYTES RELATIVE PERCENT (BEAKER) (test ltan=614) 15 % MONOCYTES RELATIVE PERCENT (BEAKER) (test kqhs=898) 10 % EOSINOPHILS RELATIVE PERCENT (BEAKER) (test svkr=557) 1 % BASOPHILS RELATIVE PERCENT (BEAKER) (test tfly=291) 1 % NEUTROPHILS ABSOLUTE COUNT (BEAKER) (test phnj=430) 8.05 K/ L 1.80-8.00 LYMPHOCYTES ABSOLUTE COUNT (BEAKER) (test epnp=500) 1.67 K/ L 1.48-4.50 MONOCYTES ABSOLUTE COUNT (BEAKER) (test wpev=425) 1.15 K/ L 0.00-1.30 EOSINOPHILS ABSOLUTE COUNT (BEAKER) (test yesd=152) 0.10 K/ L 0.00-0.50 BASOPHILS ABSOLUTE COUNT (BEAKER) (test nngp=055) 0.06 K/ L 0.00-0.20 0.00(MANUAL DIFFERENTIAL)2016-12-05 10:43:00* Test Item Value Reference Range Comments TOTAL COUNTED (BEAKER) (test metc=5490) WBC MORPHOLOGY (BEAKER) (test aono=764) Normal PLT MORPHOLOGY (BEAKER) (test afyh=241) Normal SCHISTOCYTES (BEAKER) (test eejh=551) 1+ few ANISOCYTOSIS (BEAKER) (test ogid=288) 2+ moderate POIKILOCYTES (BEAKER) (test bpko=545) 2+ moderate POLYCHROMATOPHILLIC RBCS(BEAKER) (test lovg=289) 2+ moderate HEPATIC FUNCTION [id number] 09:58:00* Test Item Value Reference Range Comments TOTAL PROTEIN (BEAKER) (test urin=711) 7.2 gm/dL 6.0-8.3 Specimen moderately hemolyzed ALBUMIN (BEAKER) (test usht=3365) 3.4 g/dL 3.5-5.0 Specimen moderately hemolyzed BILIRUBIN TOTAL (BEAKER) (test iumj=482) 4.4 mg/dL 0.2-1.2 Specimen moderately hemolyzed BILIRUBIN DIRECT (BEAKER) (test dzwe=389) 2.9 mg/dL 0.1-0.5 Specimen moderately hemolyzed ALKALINE PHOSPHATASE (BEAKER) (test vobl=424) 188 U/L 40-150 AST (SGOT) (BEAKER) (test jsew=582) 307 U/L 5-34 Specimen moderately hemolyzed ALT (SGPT) (BEAKER) (test wvhe=560) 164 U/L 6-55 Specimen moderately hemolyzed Specimen slightly ictericPOCT-GLUCOSE [id number] 09:42:00* Test Item Value Reference Range Comments POC-GLUCOSE METER (BEAKER) (test cbmj=9587) 64 mg/dL 70-110 TESTED AT [address] [address] POCT-GLUCOSE [id number] 08:28:00* Test Item Value Reference Range Comments POC-GLUCOSE METER (BEAKER) (test ptjk=8068) 35 mg/dL 70-110 TESTED AT [address] [address] POCT-GLUCOSE [id number] 06:59:00* Test Item Value Reference Range Comments POC-GLUCOSE METER (BEAKER) (test rcdz=7062) 65 mg/dL 70-110 TESTED AT [address] [address] BASIC METABOLIC [id number] 06:59:00* Test Item Value Reference Range Comments SODIUM (BEAKER) (test bxry=622) 130 meq/L 136-145 POTASSIUM (BEAKER) (test dvzk=110) 7.9 meq/L 3.5-5.1 Specimen slightly hemolyzed CHLORIDE (BEAKER) (test with=684) 96 meq/L 98-107 CO2 (BEAKER) (test knms=732) 11 meq/L 22-29 BLOOD UREA NITROGEN (BEAKER) (test zjfp=584) 62 mg/dL 7-21 CREATININE (BEAKER) (test cxcg=572) 7.78 mg/dL 0.57-1.25 Specimen slightly hemolyzed GLUCOSE RANDOM (BEAKER) (test wavu=001) 56 mg/dL 70-105 CALCIUM (BEAKER) (test kzwx=271) 9.6 mg/dL 8.4-10.2 EGFR (BEAKER) (test trce=8778) 8 mL/min/1.73 sq m ESTIMATED GFR IS NOT ACCURATE CREATININE CLEARANCE IN PREDICTING GLOMERULAR FILTRATION RATE. ESTIMATED GFR IS NOT APPLICABLE FOR DIALYSIS PATIENTS. Specimen slightly ictericPOCT-GLUCOSE [id number] 06:34:00* Test Item Value Reference Range Comments POC-GLUCOSE METER (BEAKER) (test ruut=3582) 84 mg/dL 70-[address] [facility] [address] [facility] [address] PROTHROMBIN TIME/[id number] 06:01:00* Test Item Value Reference Range Comments PROTIME (BEAKER) (test nquc=267) 23.1 seconds 11.7-14.7 INR (BEAKER) (test tkms=483) 2.0 <=5.9 RECOMMENDED COUMADIN/WARFARIN INR THERAPY RANGESSTANDARD DOSE: 2.0 - 3.0 Includes: PROPHYLAXIS for venous thrombosis, systemic embolization; TREATMENT for venous thrombosis and/or pulmonary embolus.HIGH RISK: Target INR is 2.5-3.5 for patients with mechanical heart valves.[id number] 05:57:00* Test Item Value Reference Range Comments PHOSPHORUS (BEAKER) (test zpja=086) 7.3 mg/dL 2.3-4.7 Specimen slightly hemolyzed HEPATIC FUNCTION [id number] 05:56:00* Test Item Value Reference Range Comments TOTAL PROTEIN (BEAKER) (test xztr=328) 7.0 gm/dL 6.0-8.3 Specimen slightly hemolyzed ALBUMIN (BEAKER) (test zbsg=6657) 3.4 g/dL 3.5-5.0 Specimen slightly hemolyzed BILIRUBIN TOTAL (BEAKER) (test jqls=002) 4.2 mg/dL 0.2-1.2 Specimen slightly hemolyzed BILIRUBIN DIRECT (BEAKER) (test htel=573) 2.9 mg/dL 0.1-0.5 Specimen slightly hemolyzed ALKALINE PHOSPHATASE (BEAKER) (test ddzh=231) 182 U/L 40-150 AST (SGOT) (BEAKER) (test oswf=234) 149 U/L 5-34 Specimen slightly hemolyzed ALT (SGPT) (BEAKER) (test yytj=868) 90 U/L 6-55 Specimen slightly hemolyzed Specimen slightly [id number] 05:56:00* Test Item Value Reference Range Comments MAGNESIUM (BEAKER) (test bxiv=017) 1.7 mg/dL 1.6-2.[address] ABDOMEN W [facility] [address] [address] Patient Name: CESAR HERMOSILLO MR #: [id number] : 1985 Age/Sex: 32/M Req #: [id number] Adm Physician: Ordered by: JENNIFER CRUZ MD Report #: [id number] Location: CT Room/Bed: Procedure: [id number] CT/CT ABDOMEN W Exam Date: 05/03/17 Exam Time: 1021 REPORT STATUS: Signed PROCEDURE: CT ABDOMEN WITH CONTRAST TECHNIQUE: The abdomen was scanned utilizing a multidetector helical scanner from the diaphragm to the iliac crest after the IV administration of 100 cc of Isovue 370 and the oral administration of water. Coronal and sagittal multiplanar reformations were obtained. COMPARISON: CT abdomen and pelvis without contrast 04/30/2017. INDICATIONS: EPIGASTRIC PAIN FINDINGS: LOWER THORAX: Normal. Bilateral pleural effusions. HEPATOBILIARY: No focal hepatic lesions. No biliary ductal dilatation. Cholecystectomy. SPLEEN: No splenomegaly. PANCREAS: No focal masses or ductal dilatation. ADRENALS: No adrenal nodules. KIDNEYS: No hydronephrosis, stones, or solid mass lesions. The kidneys are atrophic. PERITONEUM / RETROPERITONEUM: Moderate amount of ascites is present. No pneumoperitoneum. LYMPH NODES: No lymphadenopathy. VESSELS: Unremarkable. GI TRACT: Visualized portions of the bowel demonstrate no distention or wall thickening. Moderate amount of retained feces limits intraluminal evaluation of the colon. BONES AND SOFT TISSUES: Unremarkable. IMPRESSION: No acute abnormality of the abdomen. Ascites. Dictated by: Kalina Hernandez M.D. on at 12:42 Electronically approved by: Kalina Hernandez M.D. on 05/03 at 12:42 Dictated By: KALINA HERNANDEZ MD 1242 Transcribed By: THIERRY on 05/03/17 1242 COPY TO: JENNIFER CRUZ MD CHEST SINGLE (PORTABLE) [place] [address] Patient Name: CESAR HERMOSILLO MR #: [id number] : 1984 Age/Sex: 32/M Req #: [id number] Adm Physician: Ordered by: KELSIE [employer]ON [employer] Report #: [id number] Location: ER Room/Bed: Procedure: [id number] DX/CHEST SINGLE (PORTABLE) Exam Date: 04/30/17 Exam Time: 1546 REPORT STATUS: Signed Portable chest x-ray INDICATION: Abdominal pain COMPARISON: Chest x-ray 12/14/2015 FINDINGS: Frontal view of the chest obtained at 1535 hours. The cardiac silhouette is enlarged and stable in morphology. Pulmonary vasculature is prominent but not indistinct. The lungs demonstrate mild right basilar atelectasis. There is blunting of the right lateral costophrenic angle. Left lateral costophrenic angle is sharp. There is no pneumothorax. Median sternotomy wires are intact. No focal osseous lesions. IMPRESSION: 1. Blunting of the right lateral costophrenic angle is suggestive of pleural effusion. Mild right basilar atelectasis. 2. Cardiomegaly and mild pulmonary vascular congestion. Signed by: Dr. Javid Echeverria MD on 04/30/2017 4:55 PM Dictated By: JAVID ECHEVERRIA MD 54 COPY TO: KELSIE BACON PRESCHOOL AIDE CT ABDOMEN/PELVIS WO [facility] [place] [address] Patient Name: CESAR HERMOSILLO MR #: [id number] : 1985 Age/Sex: 32/M [facility] #: [id number] Req #: [id number] Adm Physician: Ordered by: KELSIE BACON NP Report #: [id number] Location: ER Room/Bed: Procedure: 1524-2520 CT/CT ABDOMEN/PELVIS WO Exam Date: 04/30/17 Exam Time: 1550 REPORT STATUS: Signed CT Abdomen And Pelvis Without IV Contrast INDICATION: Upper abdominal pain, diarrhea; history of appendectomy and cholecystectomy. TECHNIQUE: 5 mm collimation axial images obtained from the diaphragm to the level of the pubic symphysis without nonionic intravenous contrast. Oral contrast was administered. RADIATION DOSE: Total DLP: 661.5 mGy*cm Estimated effective dose: (DLP x 0.015 x size factor) mSv CTDIvol has been reviewed. It is below the limits set by the Radiation Protocol Committee (RPC). COMPARISON: CT chest 12/10/2015. ABDOMEN FINDINGS: Lung Bases: Bilateral pulmonary infiltrates have resolved. There are posterior pleural effusions, measuring 2 cm on the right and 3.1 cm on the left. 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 The distal esophagus is collapsed. Liver: Normal in attenuation without mass. Gallbladder: Absent. No ductal dilatation. Pancreas: Normal attenuation without mass. Spleen: Normal in attenuation and size without mass. Adrenal Glands: No evidence for mass. Kidneys: Right Kidney: Atrophic. No cortical mass or hydronephrosis. Left Kidney: Atrophic. No cortical mass or hydronephrosis. Lymph Nodes: No lymphadenopathy. Aorta: Normal in diameter. There are calcifications throughout the splenic vein and SMA. Perihepatic and perisplenic ascites is present and simple in attenuation. PELVIS FINDINGS: Bowel: Small Bowel: Normal in caliber with normal wall thickness. The stomach is distended with enteric contrast and is normal. Large Bowel: Unopacified. Several diverticula are present. There is an area of circumferential mural thickening in the mid sigmoid colon measuring about 3 cm in length. (Axial image 80). There is formed stool in the ascending colon. Surgical clips are present at the base of the cecum. Appendix: Absent. Bladder: Collapsed. No ureteral dilatation. Lymph Nodes: There are no enlarged mesenteric lymph nodes. Lymph nodes around the right pelvic sidewall measure up to 11 mm. No enlarged inguinal lymph nodes. There is diffuse pelvic ascites. No loculated fluid collection. Extensive calcifications throughout the arterial structures. Bones: Wedge-shaped compression deformities of T10 and T11 with mild arthrosis at this level there are diffuse degenerative changes throughout the thoracic and lumbar spine. No listhesis. Visualized median sternotomy wires appear intact. IMPRESSION: 1. Moderate amount of abdominopelvic ascites. 2. No bowel obstruction. Nonspecific mural thickening of the mid sigmoid colon could be secondary to underdistention. Consider colonoscopy on an outpatient basis for further evaluation. 3. Small pleural effusions. Resolved pulmonary infiltrates. 4. Cardiomegaly and postoperative changes of the mediastinum as described above. 5. Atrophic kidneys with vascular calcifications suggestive of end-stage renal disease. Signed by: Dr. Javid Echeverria MD on 04/30/2017 5:15 PM Dictated By: JAVID ECHEVERRIA MD 14 Transcribed By : HAI on 04/30/171714 COPY TO: KELSIE BACON NP"
[2017-08-05] MEDS ORDERED: TYLENOL WITH C1 EACH PO ×2 (15:44→16:23)
--- NOTE | 2017-08-05 15:49 | Diagnostic Imaging Report ---
Exam: Left wrist 3 views History: Pain Comparison: None. Findings: Nondisplaced distal radius fracture. Possible minimal intra-articular extension. Overlying soft tissue swelling. Impression: Nondisplaced distal radius fracture. Signed by: Dr. Oscar Arita M.D. on 08/05/2017 3:46 PM
[2017-08-05] MEDS ORDERED: HYDROCODONE/APAP 5MG-325MG TAB PO ONE (16:00)
[2017-08-05 16:36] VITALS: BP 143/92
== END 2017-08-05 16:30 | disposition home or self-care (01) ==
LOC: ER 15:06
DX: S52.355A Nondisplaced comminuted fracture of shaft of radius, left arm, initial encounter for closed fracture (principal); W01.0XXA Fall on same level from slipping, tripping and stumbling without subsequent striking against object, initial encounter; Y92.008 Other place in unspecified non-institutional (private) residence as the place of occurrence of the external cause; I10 Essential (primary) hypertension; E78.5 Hyperlipidemia, unspecified; M32.9 Systemic lupus erythematosus, unspecified; E07.9 Disorder of thyroid, unspecified
CPT/HCPCS: 99284

== ENCOUNTER 2017-09-02 08:01 | Emergency (ER) | payer MEDICARE, OTHER ==
[~2017-09-02] VITALS: Ht 190.5 cm; Wt 87.1 kg
[~2017-09-02 08:01] MED LIST changes: +TYLENOL WITH C1 EACH PO
--- OUTSIDE RECORDS SUMMARY | 2017-09-02 08:07 | XMS REPORT | Continuity of Care Document ---
Author Author [facility] Organization [facility] Address [address] [place] [address] Phone Unavailable Care Team Providers Care Gaming Table Operator Name Role Phone JENNIFER CRUZ MD PCP Insurance Providers Guarantor Cesar Wade Address [address] [place] [address] Email PT DECLINED Payer Medicare A & B Policy Number [id number] Subscriber's Name Cesar Wade Relationship 18 Self / Same As Patient Effective Date 16 [facility] Policy Number [id number] Subscriber's Name Cesar Wade Relationship 18 Self / Same As Patient Effective Date 11 Payer [facility] Policy Number [id number] Subscriber's Name Cesar Wade Relationship 18 Self / Same As Patient Advance Directives Directive Response Recorded Date/Time Does the patient have an advance directive? No 12/11/15 2:21am If yes, is advance directive on file with [facility]? No 12/11/15 2:21am If not on file with [facility] will patient provide a copy? No 12/11/15 2:21am Problems Medical Problem Onset Date Status CHF (congestive heart failure) 12/10/2015 Acute Respiratory failure 12/10/2015 Acute Medications Current Home Medications Medication Dose Units Route Directions Days Qty Instructions Start Date Acetaminophen With Codeine (Tylenol With Codeine #3 Tablet) 1 Each Tablet 300 Mg Oral 4-6HR for Pain 5 Days 20 Tab 08/05/17 Amlodipine Besylate 10 Mg Tablet 10 Mg Oral Daily 30 Tab Aspirin (Aspir 81) 81 Mg Tablet. 81 Mg Oral Daily Atorvastatin Calcium 20 Mg Tablet 20 Mg Oral Bedtime Folic Acid 1 Mg Tablet 1 Mg Oral Daily 30 Tab Gemfibrozil 600 Mg Tablet Twice A Day Hydralazine Hcl 25 Mg Tab 100 Mg Oral Twice A Day Labetalol Hcl 200 Mg Tablet 200 Mg Oral Twice A Day 60 Tab Levothyroxine Sodium 50 Mcg Tablet 50 Mcg Oral Daily 30 Tab Mycophenolate Mofetil 250 Mg Capsule 500 Mg Oral Daily Pantoprazole Sodium (Protonix) 40 Mg Tablet. 40 Mg Oral Daily Prednisone 20 Mg Tab 20 Mg Oral Daily 14 Days 12/22/15 Promethazine Hcl 25 Mg Tablet 25 Mg Oral Every 6 Hours Sucralfate 1 Gm Tablet 1 Gm Oral Twice A Day Past Home Medications Medication Directions Ordered Status Acetaminophen With Codeine (Tylenol With Codeine #3 Tablet) 1 Each Tablet, 300 Mg Oral 4-6HR for Pain 08/05/17 Discontinued Social History Smoking Status Start Date Stop Date Never Smoker Hospital Discharge Instructions No hospital discharge instruction information available. Plan of Care Discharge Date 08/05/17 4:30pm Disposition HOME, SELF-CARE Condition at Discharge Stable Instructions/Education Provided Fractures - Forearm Forms Provided Work/School Excuse Prescriptions See Medication Section Referrals CESAR ROSAS MD Order Date: Call for an appointment Address: [address] [place] [id number] Additional Instructions/Education Ice, elevate and follow up with the Orthopedic provider given. Take the medication as prescribed for pain. Functional Status No functional status information available. Allergies, Adverse Reactions, Alerts Allergen Type Severity Reaction Status Last Updated No Known Drug Allergies Allergy Unknown Active 08/05/17 Immunizations No immunization information available. Vital Signs Acute Vital Signs Vital Response Date/Time Temperature (Fahrenheit) 98.5 degrees F (97.6 - 99.5) 08/05/2017 4:36pm Pulse Pulse Rate (adult) 112 bpm (60 - 90) 08/05/2017 4:36pm Respiratory Rate 16 bpm (12 - 24) 08/05/2017 4:36pm Blood Pressure 143/92 mm Hg 08/05/2017 4:36pm Height 6 ft 3 in 08/05/2017 3:13pm Weight 190 lb 08/05/2017 3:13pm Body Mass Index 23.7 kg/m^2 08/05/2017 3:13pm Results Laboratory Results Test Name Result Units Flags Reference Collection Date/Time Result Date/ Time Comments White Blood Count 9.49 x10e3/uL 4.8-10.8 04/30/2017 3:00pm 04/30/2017 3 :25pm Red Blood Count 4.32 x10e6/uL 4.3-5.7 04/30/2017 3:00pm 04/30/2017 3: 25pm Hemoglobin 8.9 g/dL L 14.0-18.0 04/30/2017 3:00pm 04/30/2017 3:25pm Hematocrit 30.1 % L 38.2-49.6 04/30/2017 3:00pm 04/30/2017 3:25pm Mean Corpuscular Volume 69.7 fL L 81-99 04/30/2017 3:00pm 04/30/2017 3: 25pm Mean Corpuscular Hemoglobin 20.6 pg L 28-32 04/30/2017 3:00pm 2016 3:25pm Mean Corpuscular Hemoglobin Concent 29.6 g/dL L 31-35 04/30/2017 3:00pm 04/30/2017 3:25pm Red Cell Distribution Width 18.4 % H 11.7-14.4 04/30/2017 3:00pm 2016 3:25pm Platelet Count 343 x10e3/uL 140-360 04/30/2017 3:00pm 04/30/2017 3: 25pm Neutrophils (%) (Auto) 69.4 % 38.7-80.0 04/30/2017 3:00pm 04/30/2017 3: 25pm Lymphocytes (%) (Auto) 17.2 % L 18.0-39.1 04/30/2017 3:00pm 04/30/2017 3 :25pm Monocytes (%) (Auto) 11.1 % 4.4-11.3 04/30/2017 3:00pm 04/30/2017 3: 25pm Eosinophils (%) (Auto) 1.2 % 0.0-6.0 04/30/2017 3:00pm 04/30/2017 3: 25pm Basophils (%) (Auto) 0.5 % 0.0-1.0 04/30/2017 3:00pm 04/30/2017 3:25pm IM GRANULOCYTES % 0.6 % 0.0-1.0 04/30/2017 3:00pm 04/30/2017 3:25pm Neutrophils # (Auto) 6.6 2.1-6.9 04/30/2017 3:00pm 04/30/2017 3:25pm Lymphocytes # (Auto) 1.6 1.0-3.2 04/30/2017 3:00pm 04/30/2017 3:25pm Monocytes # (Auto) 1.1 H 0.2-0.8 04/30/2017 3:00pm 04/30/2017 3:25pm Eosinophils # (Auto) 0.1 0.0-0.4 04/30/2017 3:00pm 04/30/2017 3:25pm Basophils # (Auto) 0.1 0.0-0.1 04/30/2017 3:00pm 04/30/2017 3:25pm Absolute Immature Granulocyte (auto 0.06 x10e3/uL 0-0.1 04/30/2017 3: 00pm 04/30/2017 3:25pm Urine Color YELLOW YELLOW 04/30/2017 2:35pm 04/30/2017 4:36pm Urine Clarity CLEAR CLEAR 04/30/2017 2:35pm 04/30/2017 4:36pm Urine Specific [place] 1.005 L 1.010-1.025 04/30/2017 2:35pm 2016 4:36pm Urine pH 7 5 - 7 04/30/2017 2:35pm 04/30/2017 4:36pm Urine Leukocyte Esterase TRACE H NEGATIVE 04/30/2017 2:35pm 2016 4:36pm Urine Nitrite NEGATIVE NEGATIVE 04/30/2017 2:35pm 04/30/2017 4:36pm Urine Protein 2+ H NEGATIVE 04/30/2017 2:35pm 04/30/2017 4:36pm Urine Glucose (UA) TRACE H NEGATIVE 04/30/2017 2:35pm 04/30/2017 4: 36pm Urine Ketones NEGATIVE NEGATIVE 04/30/2017 2:35pm 04/30/2017 4:36pm Urine Urobilinogen 0.2 mg/dL 0.2 - 1 04/30/2017 2:35pm 04/30/2017 4: 36pm Urine Bilirubin 1+ H NEGATIVE 04/30/2017 2:35pm 04/30/2017 4:36pm Confirmatory test currently unavailable. False positive results may occur. Urine Blood TRACE H NEGATIVE 04/30/2017 2:35pm 04/30/2017 4:36pm Urine WBC 0-5 /HPF 0-5 04/30/2017 2:35pm 04/30/2017 5:08pm Urine RBC 0-5 /HPF 0-5 04/30/2017 2:35pm 04/30/2017 5:08pm Urine Bacteria FEW /HPF NONE 04/30/2017 2:35pm 04/30/2017 5:08pm Urine Epithelial Cells FEW /LPF NONE 04/30/2017 2:35pm 04/30/2017 5: 08pm Sodium Level 134 mmol/L L 136-145 04/30/2017 3:00pm 04/30/2017 3:41pm Potassium Level 4.1 mmol/L 3.5-5.1 04/30/2017 3:00pm 04/30/2017 3:41pm Chloride Level 99 mmol/L 98-107 04/30/2017 3:00pm 04/30/2017 3:41pm Carbon Dioxide Level 19 mmol/L L 22-29 04/30/2017 3:00pm 04/30/2017 3: 41pm Anion Gap 20.1 mmol/L H 8-16 04/30/2017 3:00pm 04/30/2017 3:41pm Blood Urea Nitrogen 43 mg/dL H 7-26 04/30/2017 3:00pm 04/30/2017 3:41pm Creatinine 9.33 mg/dL H 0.72-1.25 04/30/2017 3:00pm 04/30/2017 3:41pm BUN/Creatinine Ratio 5 L 6-25 04/30/2017 3:00pm 04/30/2017 3:41pm Estimat Glomerular Filtration Rate 6 ML/MIN L 60- 04/30/2017 3:00pm 10/2016 3:41pm Ranges were taken from the National Kidney Disease Education Program and the National Kid[employer] literature. Reference ranges: 60 or greater: Normal 16-59 (for 3 consecutive months): Chronic kidney disease 15 or less: Kidney failure Glucose Level 85 mg/dL 74-118 04/30/2017 3:00pm 04/30/2017 3:41pm Calcium Level 9.0 mg/dL 8.4-10.2 04/30/2017 3:00pm 04/30/2017 3:41pm Lactic Acid Level 11.3 MG/DL 4.5-19.8 04/30/2017 3:00pm 04/30/2017 3: 32pm Magnesium Level 1.3 MG/DL 1.3-2.1 04/30/2017 3:00pm 04/30/2017 3:41pm Total Bilirubin 1.0 mg/dL 0.2-1.2 04/30/2017 3:00pm 04/30/2017 3:41pm Aspartate Amino Transf (AST/SGOT) 16 IU/L 5-34 04/30/2017 3:00pm 2016 3:41pm Alanine Aminotransferase (ALT/SGPT) < 6 IU/L 0-55 04/30/2017 3:00pm 10/2016 3:41pm Total Protein 8.7 g/dL H 6.5-8.1 04/30/2017 3:00pm 04/30/2017 3:41pm Albumin 2.7 g/dL L 3.5-5.0 04/30/2017 3:00pm 04/30/2017 3:41pm Globulin 6.0 g/dL H 2.3-3.5 04/30/2017 3:00pm 04/30/2017 3:41pm Albumin/Globulin Ratio 0.5 L 0.8-2.0 04/30/2017 3:00pm 04/30/2017 3: 41pm Alkaline Phosphatase 151 IU/L H 40-150 04/30/2017 3:00pm 04/30/2017 3: 41pm Creatine Kinase 38 IU/L 30-200 04/30/2017 3:00pm 04/30/2017 3:41pm Creatine Kinase MB 1.60 ng/mL 0-4.3 04/30/2017 3:00pm 04/30/2017 3: 41pm Troponin I < 0.05 ng/mL 0.0-0.40 04/30/2017 3:00pm 04/30/2017 3:41pm Lipase 13 U/L 8-78 04/30/2017 3:00pm 04/30/2017 3:41pm Thyroid Stimulating Hormone (TSH) 5.376 uIU/mL H 0.350-4.940 04/30/2017 3 :00pm 04/30/2017 7:25pm Procedures Procedure Status Date Provider(s) CT of abdomen and pelvis without contrast Active 04/30/17 KELSIE BACON NP Computed tomography of abdomen with contrast Active 05/03/17 JENNIFER CRUZ MD Encounters Encounter Location Arrival/Admit Date Discharge/Depart Date Attending Provider Departed Emergency Room [facility] 08/05/17 3:06pm 4:30pm ELDA HOWE MD Registered Clinic [facility] 05/03/17 9:01am JENNIFER CRUZ MD Departed Emergency Room [facility] 04/30/17 2:05pm 6:11pm EMMA RAMSEY MD
[2017-09-02 08:35] LABS: BASOPHILS % 0.3 % (0.0-1.0); EOSINOPHILS # (AUTO) 0.4 (0.0-0.4); HEMATOCRIT 35.1 % (38.2-49.6); HEMOGLOBIN 11.6 g/dL (14.0-18.0); LYMPHOCYTES # (AUTO) 1.4 (1.0-3.2); MEAN CORPUSCULAR HEMOGLOBIN 28.4 pg (28-32); MEAN CORPUSCULAR VOLUME 85.8 fL (81-99); MONOCYTES % 10.2 % (4.4-11.3); NEUTROPHILS # (AUTO) 7.2 (2.1-6.9); PLATELET COUNT 162 x10e3/uL (140-360); RED BLOOD COUNT 4.09 x10e6/uL (4.3-5.7); RED CELL DISTRIBUTION WIDTH 17.9 % (11.7-14.4)
[2017-09-02 08:56] LABS: ALBUMIN 3.5 g/dL (3.5-5.0); ALBUMIN/GLOBULIN RATIO 0.7 (0.8-2.0); ANION GAP 19.4 mmol/L (8-16); CALCIUM 9.6 mg/dL (8.4-10.2); CREATININE, SERUM 8.92 mg/dL (0.72-1.25); POTASSIUM 4.4 mmol/L (3.5-5.1)
--- NOTE | 2017-09-02 09:14 | Diagnostic Imaging Report ---
EXAMINATION: CHEST 2 VIEWS INDICATION: \S\COUGH \[id number] \S\[id number] COMPARISON: 04/30/2017 FINDINGS: PA and lateral views TUBES and LINES: None. LUNGS: Low lung volumes. His opacification of the right middle lobe and lower lobe. Central vascular congestion. PLEURA: No pneumothorax. Small bilateral pleural effusions. HEART AND MEDIASTINUM: Enlarged cardiac silhouette. Median sternotomy wires. Questionable prostatic valve. BONES AND SOFT TISSUES: Degenerative changes of the spine with age indeterminate anterior wedging of T10 and T11 vertebral bodies. Soft tissues are unremarkable. UPPER ABDOMEN: No free air under the diaphragm. IMPRESSION: Findings, suspicious for right middle and possibly right lower lobe pneumonia. Enlarged cardiac silhouette with central vascular congestion. Signed by: Dr. William Ward MD on 09/02/2017 9:11 AM
[2017-09-02] MEDS ORDERED: CEFTRIAXONE SOD 1 GM VIAL IV ONE (10:00)
== END 2017-09-02 10:06 | disposition home or self-care (01) ==
LOC: ER 08:01
DX: R50.9 Fever, unspecified (principal); R05 Cough; R09.02 Hypoxemia; J11.00 Influenza due to unidentified influenza virus with unspecified type of pneumonia
CPT/HCPCS: 36415; 71046; 80053; 85025; 87400; 99284; J0696

== ENCOUNTER 2017-12-14 15:36 | Emergency (ER) | payer MEDICARE, OTHER ==
[~2017-12-14] VITALS: Ht 190.5 cm; Wt 87.1 kg
[2017-12-14 18:33] VITALS: BP 146/73
== END 2017-12-14 18:52 | disposition home or self-care (01) ==
LOC: ER 15:36 → FSED 18:52
DX: R11.2 Nausea with vomiting, unspecified (principal); R19.7 Diarrhea, unspecified; A08.4 Viral intestinal infection, unspecified; M32.9 Systemic lupus erythematosus, unspecified; N18.9 Chronic kidney disease, unspecified
CPT/HCPCS: 80048; 99284

== ENCOUNTER 2018-07-15 19:40 | Emergency (ER) | payer MEDICARE, OTHER ==
[~2018-07-15] VITALS: Ht 190.5 cm; Wt 87.1 kg
--- OUTSIDE RECORDS SUMMARY | 2018-07-15 19:44 | XMS REPORT | Clinical Summary ---
Author Author JEANNINE [facility] Address Unknown Phone Unavailable Care Team Providers Care Pan Devulcanizer Helper Name Role Phone RizviMario horner Evitachhaya PCP Olu Rubio Unavailable Allergies No Known Allergies Medications End Date Status Medication Sig Dispensed Refills Start Date Active sevelamer (RENVELA) 800 Take 1 tablet 0 mg tablet by mouth 3 (three) times daily before meals. Active pantoprazole 40 mg GrPS Take 40 mg by 0 mouth daily. Active labetalol (NORMODYNE) 200 Take 200 mg 0 MG tablet by mouth 2 (two) times daily . Active gemfibrozil (LOPID) 600 Take 600 mg 3 MG tablet by mouth 2 7 (two) times daily before meals. Active sodium bicarbonate 650 MG Take 1 tablet 0 tablet by mouth 2 (two) times daily. Active dneanf-vdtjvwme-fkopozz Take 36,000 0 (CREON) 36,000-114,000- units of 180,000 unit CpDR capsule lipase by mouth 3 (three) times daily. Active levothyroxine (SYNTHROID, Take 50 mcg 0 LEVOTHROID) 50 MCG tablet by mouth Every morning on an empty stomach. 02/02/2018 aspirin 81 MG chewable Take 1 tablet 30 tablet 0 tablet (81 mg total) 7 by mouth daily. 12/26/2017 Discontinued epoetin sandy Inject 1 mL 1 mL 0 (EPOGEN,PROCRIT) 4,000 (4,000 Units 7 unit/mL total) injectionIndications: subcutaneousl Anemia y 3 (three) times a week at bedtime. 12/26/2017 Discontinued atorvastatin (LIPITOR) 20 Take 20 mg by 0 MG tablet mouth every evening. 01/18/2018 Discontinued hydrALAZINE (APRESOLINE) Take 50 mg by 3 25 MG tablet mouth 3 7 (three) times daily . 12/26/2017 Discontinued mycophenolate (CELLCEPT) Take 500 mg 0 500 mg tablet by mouth 2 (two) times daily. 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 Crane ,Dr. Bowles, AVF SLE (systemic lupus erythematosus) 03/11/2016 HTN (hypertension) 03/11/2016 Acid reflux 03/11/2016 Aortic stenosis 02/25/2016 Overview: s/p AVR on 03/04/16 and Redo on 12/27/16 Hypertension Encounters Care Team Description Date Type Specialty Jeana El MD 01/18/2018 Evaluation Transplant Jeana El MD Yao, June, MD ESRD (end stage renal disease) (HCC) (Primary Dx) 01/18/2018 Evaluation Transplant Jeana El MD Systemic lupus erythematosus with endocarditis, unspecified SLE type (HCC); ESRD (end stage renal disease) (HCC); Essential hypertension; Pre-transplant evaluation for chronic kidney disease 01/18/2018 Hospital Radiology Encounter Jeana El MD Systemic lupus erythematosus with endocarditis, unspecified SLE type (HCC); ESRD (end stage renal disease) (HCC); Essential hypertension; Pre-transplant evaluation for chronic kidney disease 01/18/2018 Hospital Encounter Jeana El MD Systemic lupus erythematosus with endocarditis, unspecified SLE type (HCC); Severe aortic valve regurgitation; ESRD (end stage renal disease) (HCC); MRSA infection (methicillin-resistant Staphylococcus aureus); Pre-transplant evaluation for chronic kidney disease 01/18/2018 Hospital Cardiology Encounter Jeana El MD Systemic lupus erythematosus with endocarditis, unspecified SLE type (HCC); Severe aortic valve regurgitation; ESRD (end stage renal disease) (HCC); MRSA infection (methicillin-resistant Staphylococcus aureus); Pre-transplant evaluation for chronic kidney disease 01/18/2018 Hospital Cardiology Encounter Jeana El MD Systemic lupus erythematosus with endocarditis, unspecified SLE type (HCC); Severe aortic valve regurgitation; ESRD (end stage renal disease) (HCC); MRSA infection (methicillin-resistant Staphylococcus aureus); Pre-transplant evaluation for chronic kidney disease 01/18/2018 Orders Only Lab Teetee Richmond RN Systemic lupus erythematosus with endocarditis, unspecified SLE type (HCC) (Primary Dx); ESRD (end stage renal disease) (HCC); Essential hypertension; Pre-transplant evaluation for chronic kidney disease 01/18/2018 Orders Only Transplant Jeana El MD 01/17/2018 Outside Orders Radiology Jeana El, Herminia Finney RN Systemic lupus erythematosus with endocarditis, unspecified SLE type (HCC) (Primary Dx); Severe aortic valve regurgitation; ESRD (end stage renal disease) (HCC); MRSA infection (methicillin-resistant Staphylococcus aureus); Pre-transplant evaluation for chronic kidney disease 12/26/2017 Office Visit Transplant Jeana El MD Systemic lupus erythematosus with endocarditis, unspecified SLE type (HCC); Severe aortic valve regurgitation; ESRD (end stage renal disease) (HCC); MRSA infection (methicillin-resistant Staphylococcus aureus); Pre-transplant evaluation for chronic kidney disease 12/26/2017 Orders Only Transplant Hepatology Florencia Gonzalez 11/24/2017 Abstract Transplant Florencia Gonzalez 11/17/2017 Abstract Transplant after 07/14/2017 Immunizations Name Dates Previously Given Next Due Pneumococcal 03/08/2016 Polysaccharide (Pneumovax) Family History Medical History Relation Name Comments No Known Problem Brother No Known Problem Brother No Known Problem Father No Known Problem Mother Relation Name Status Comments Brother Alive Brother Alive Brother Alive Father Alive Mother Alive Social History Date Tobacco Use Types Packs/Day Years Used Never Smoker Smokeless Tobacco: Never Used Alcohol Use Drinks/Week oz/Week Comments No Sex Assigned at Date Recorded Not on file Industry Job Start Date Occupation Not on file Not on file Not on file Travel End Travel History Travel Start No recent travel history available. Last Filed Vital Signs Time Taken Vital Sign Reading 01/18/2018 1:22 PM CDT Blood Pressure 102/66 01/18/2018 1:22 PM CDT Pulse 96 01/18/2018 1:22 PM CDT Temperature 36.8 C (98.2 F) 01/18/2018 1:22 PM CDT Respiratory Rate 18 - Oxygen Saturation - - Inhaled Oxygen - Concentration 01/18/2018 1:22 PM CDT Weight 94.7 kg (208 lb 11.2 oz) 01/18/2018 1:22 PM CDT Height 184.5 cm (6' 0.64") 01/18/2018 1:22 PM CDT Body Mass Index 27.81 Plan of Treatment Health Maintenance Due Date Last Done Comments INFLUENZA VACCINE 03/26/2018 Implants Device Identifier Shelf Expiration Date Model / Serial / Lot Implanted Type Area Manufactur er 05/25/2017 [id number] / / [id number] Sealr Hemstat Coseal 8ml [id number] - Cement/Freedom N/A: Chest KEENE:MED [id number] ler/Adhesi DEL Implanted: Qty: 1 on 12/27/2016 by Candelario Loyola 01/23/2019 [id number] / / [id number] Patch Vasc Warren 1.65mm 1x6in Graft/Patc N/A: Chest CR [id number] - [id number] BARD:PERIP Implanted: Qty: 1 on 12/27/2016 by HERAL Beau Holt MD 08/26/2020 HVA-L / ID:[id number] / Cryo.Aortic Valve Tissue N/A: Chest LIFENET Implanted: Qty: 1 on 12/27/2016 by Graft/Subs eBau Cross MD titute 04/19/2021 [id number] / PN [id number] / [id number] Patch Periph Vascu-Grd 2x9cm Tissue N/A: Chest SYNOVIS Vg-[id number] - Spn [id number] Graft/Subs LIFE Implanted: Qty: 1 on 12/27/2016 by titute TECH:SURG Beau Cross MD INNOV 11/17/2017 TFGT-25A / [id number] / Valve Tiss Trifecta W/Gld 25a Valves N/A: Heart ST ROBI Tfgt-25a - [id number] MED:CARDIA Implanted: Qty: 1 on 03/04/2016 by Beto Grewal MD Explanted: 10/24/2019 [id number] / / [id number] Ring Semiflex 30mm Mounted [id number] Valves N/A: Heart MEDTRONIC: - [id number] STRUCTURAL Implanted: Qty: 1 on 12/27/2016 by HEART Beau Cross MD Procedures Comments Procedure Name Priority Date/Time Associated Diagnosis TRANSFUSION SERVICE 01/19/2018 REPORT - SCAN 5:54 PM CDT US ABDOMEN COMPLETE Routine 01/18/2018 Systemic lupus 11:14 AM CDT erythematosus with endocarditis, unspecified SLE type (HCC) ESRD (end stage renal disease) (HCC) Essential hypertension Pre-transplant evaluation for chronic kidney disease XR CHEST 2 VIEWS Routine 01/18/2018 Systemic lupus 9:39 AM CDT erythematosus with endocarditis, unspecified SLE type (HCC) ESRD (end stage renal disease) (HCC) Essential hypertension Pre-transplant evaluation for chronic kidney disease ECG 12-LEAD Routine 01/18/2018 Systemic lupus 8:20 AM CDT erythematosus with endocarditis, unspecified SLE type (HCC) Severe aortic valve regurgitation ESRD (end stage renal disease) (HCC) MRSA infection (methicillin-resistant Staphylococcus aureus) Pre-transplant evaluation for chronic kidney disease 2D ECHO W/ DOPPLER Routine 01/18/2018 Systemic lupus (CW/PW/COLOR) 7:59 AM CDT erythematosus with endocarditis, unspecified SLE type (HCC) Severe aortic valve regurgitation ESRD (end stage renal disease) (HCC) MRSA infection (methicillin-resistant Staphylococcus aureus) Pre-transplant evaluation for chronic kidney disease CBC W/PLT COUNT & AUTO Routine 01/18/2018 Systemic lupus DIFFERENTIAL 7:24 AM CDT erythematosus with endocarditis, unspecified SLE type (HCC) Severe aortic valve regurgitation ESRD (end stage renal disease) (HCC) MRSA infection (methicillin-resistant Staphylococcus aureus) Pre-transplant evaluation for chronic kidney disease DIRECT AHG (KOREY)/DIRECT Routine 01/18/2018 Systemic lupus CIARA 7:24 AM CDT erythematosus with endocarditis, unspecified SLE type (HCC) Severe aortic valve regurgitation ESRD (end stage renal disease) (HCC) MRSA infection (methicillin-resistant Staphylococcus aureus) Pre-transplant evaluation for chronic kidney disease BLOOD TYPING, AUTOMATED Routine 01/18/2018 Systemic lupus 7:24 AM CDT erythematosus with endocarditis, unspecified SLE type (HCC) Severe aortic valve regurgitation ESRD (end stage renal disease) (HCC) MRSA infection (methicillin-resistant Staphylococcus aureus) Pre-transplant evaluation for chronic kidney disease AB SPECIFICITY CLASS II Routine 01/18/2018 Systemic lupus 7:24 AM CDT erythematosus with endocarditis, unspecified SLE type (HCC) Severe aortic valve regurgitation ESRD (end stage renal disease) (HCC) MRSA infection (methicillin-resistant Staphylococcus aureus) Pre-transplant evaluation for chronic kidney disease AB SPECIFICITY CLASS I Routine 01/18/2018 Systemic lupus 7:24 AM CDT erythematosus with endocarditis, unspecified SLE type (HCC) Severe aortic valve regurgitation ESRD (end stage renal disease) (HCC) MRSA infection (methicillin-resistant Staphylococcus aureus) Pre-transplant evaluation for chronic kidney disease HLA TYPING CI Routine 01/18/2018 Systemic lupus 7:24 AM CDT erythematosus with endocarditis, unspecified SLE type (HCC) Severe aortic valve regurgitation ESRD (end stage renal disease) (HCC) MRSA infection (methicillin-resistant Staphylococcus aureus) Pre-transplant evaluation for chronic kidney disease EQUAL MIX, NORMAL PLASMA Routine 01/18/2018 Systemic lupus 7:24 AM CDT erythematosus with endocarditis, unspecified SLE type (HCC) Severe aortic valve regurgitation ESRD (end stage renal disease) (HCC) MRSA infection (methicillin-resistant Staphylococcus aureus) Pre-transplant evaluation for chronic kidney disease DOUBLE-STRANDED DNA Routine 01/18/2018 Systemic lupus (DSDNA) ANTIBODY 7:24 AM CDT erythematosus with endocarditis, unspecified SLE type (HCC) Severe aortic valve regurgitation ESRD (end stage renal disease) (HCC) MRSA infection (methicillin-resistant Staphylococcus aureus) Pre-transplant evaluation for chronic kidney disease COMPLEMENT COMPONENT C4 Routine 01/18/2018 Systemic lupus 7:24 AM CDT erythematosus with endocarditis, unspecified SLE type (HCC) Severe aortic valve regurgitation ESRD (end stage renal disease) (HCC) MRSA infection (methicillin-resistant Staphylococcus aureus) Pre-transplant evaluation for chronic kidney disease COMPLEMENT COMPONENT C3 Routine 01/18/2018 Systemic lupus 7:24 AM CDT erythematosus with endocarditis, unspecified SLE type (HCC) Severe aortic valve regurgitation ESRD (end stage renal disease) (HCC) MRSA infection (methicillin-resistant Staphylococcus aureus) Pre-transplant evaluation for chronic kidney disease CARDIOLIPIN ANTIBODIES, Routine 01/18/2018 Systemic lupus IGG AND IGM 7:24 AM CDT erythematosus with endocarditis, unspecified SLE type (HCC) Severe aortic valve regurgitation ESRD (end stage renal disease) (HCC) MRSA infection (methicillin-resistant Staphylococcus aureus) Pre-transplant evaluation for chronic kidney disease VARICELLA ZOSTER Routine 01/18/2018 Systemic lupus ANTIBODY, IGG 7:24 AM CDT erythematosus with endocarditis, unspecified SLE type (HCC) Severe aortic valve regurgitation ESRD (end stage renal disease) (HCC) MRSA infection (methicillin-resistant Staphylococcus aureus) Pre-transplant evaluation for chronic kidney disease URIC ACID Routine 01/18/2018 Systemic lupus 7:24 AM CDT erythematosus with endocarditis, unspecified SLE type (HCC) Severe aortic valve regurgitation ESRD (end stage renal disease) (HCC) MRSA infection (methicillin-resistant Staphylococcus aureus) Pre-transplant evaluation for chronic kidney disease T SPOT TB Routine 01/18/2018 Systemic lupus 7:24 AM CDT erythematosus with endocarditis, unspecified SLE type (HCC) Severe aortic valve regurgitation ESRD (end stage renal disease) (HCC) MRSA infection (methicillin-resistant Staphylococcus aureus) Pre-transplant evaluation for chronic kidney disease RPR Routine 01/18/2018 Systemic lupus 7:24 AM CDT erythematosus with endocarditis, unspecified SLE type (HCC) Severe aortic valve regurgitation ESRD (end stage renal disease) (HCC) MRSA infection (methicillin-resistant Staphylococcus aureus) Pre-transplant evaluation for chronic kidney disease PT/APTT Routine 01/18/2018 Systemic lupus 7:24 AM CDT erythematosus with endocarditis, unspecified SLE type (HCC) Severe aortic valve regurgitation ESRD (end stage renal disease) (HCC) MRSA infection (methicillin-resistant Staphylococcus aureus) Pre-transplant evaluation for chronic kidney disease PTH, INTACT Routine 01/18/2018 Systemic lupus 7:24 AM CDT erythematosus with endocarditis, unspecified SLE type (HCC) Severe aortic valve regurgitation ESRD (end stage renal disease) (HCC) MRSA infection (methicillin-resistant Staphylococcus aureus) Pre-transplant evaluation for chronic kidney disease PHOSPHORUS Routine 01/18/2018 Systemic lupus 7:24 AM CDT erythematosus with endocarditis, unspecified SLE type (HCC) Severe aortic valve regurgitation ESRD (end stage renal disease) (HCC) MRSA infection (methicillin-resistant Staphylococcus aureus) Pre-transplant evaluation for chronic kidney disease LACTATE DEHYDROGENASE Routine 01/18/2018 Systemic lupus (LDH) 7:24 AM CDT erythematosus with endocarditis, unspecified SLE type (HCC) Severe aortic valve regurgitation ESRD (end stage renal disease) (HCC) MRSA infection (methicillin-resistant Staphylococcus aureus) Pre-transplant evaluation for chronic kidney disease HIV-1 ANTIGEN WITH Routine 01/18/2018 Systemic lupus HIV-1/2 ANTIBODY 7:24 AM CDT erythematosus with endocarditis, unspecified SLE type (HCC) Severe aortic valve regurgitation ESRD (end stage renal disease) (HCC) MRSA infection (methicillin-resistant Staphylococcus aureus) Pre-transplant evaluation for chronic kidney disease HEPATITIS C ANTIBODY Routine 01/18/2018 Systemic lupus 7:24 AM CDT erythematosus with endocarditis, unspecified SLE type (HCC) Severe aortic valve regurgitation ESRD (end stage renal disease) (HCC) MRSA infection (methicillin-resistant Staphylococcus aureus) Pre-transplant evaluation for chronic kidney disease HEPATITIS B CORE Routine 01/18/2018 Systemic lupus ANTIBODY, IGM 7:24 AM CDT erythematosus with endocarditis, unspecified SLE type (HCC) Severe aortic valve regurgitation ESRD (end stage renal disease) (HCC) MRSA infection (methicillin-resistant Staphylococcus aureus) Pre-transplant evaluation for chronic kidney disease HEPATITIS B SURFACE Routine 01/18/2018 Systemic lupus ANTIGEN 7:24 AM CDT erythematosus with endocarditis, unspecified SLE type (HCC) Severe aortic valve regurgitation ESRD (end stage renal disease) (HCC) MRSA infection (methicillin-resistant Staphylococcus aureus) Pre-transplant evaluation for chronic kidney disease HEPATITIS B SURFACE Routine 01/18/2018 Systemic lupus ANTIBODY 7:24 AM CDT erythematosus with endocarditis, unspecified SLE type (HCC) Severe aortic valve regurgitation ESRD (end stage renal disease) (HCC) MRSA infection (methicillin-resistant Staphylococcus aureus) Pre-transplant evaluation for chronic kidney disease GAMMA GLUTAMYL Routine 01/18/2018 Systemic lupus TRANSFERASE (GGT) 7:24 AM CDT erythematosus with endocarditis, unspecified SLE type (HCC) Severe aortic valve regurgitation ESRD (end stage renal disease) (HCC) MRSA infection (methicillin-resistant Staphylococcus aureus) Pre-transplant evaluation for chronic kidney disease EBV ANTIBODY, IGM Routine 01/18/2018 Systemic lupus 7:24 AM CDT erythematosus with endocarditis, unspecified SLE type (HCC) Severe aortic valve regurgitation ESRD (end stage renal disease) (HCC) MRSA infection (methicillin-resistant Staphylococcus aureus) Pre-transplant evaluation for chronic kidney disease EBV ANTIBODY, IGG Routine 01/18/2018 Systemic lupus 7:24 AM CDT erythematosus with endocarditis, unspecified SLE type (HCC) Severe aortic valve regurgitation ESRD (end stage renal disease) (HCC) MRSA infection (methicillin-resistant Staphylococcus aureus) Pre-transplant evaluation for chronic kidney disease COMPREHENSIVE METABOLIC Routine 01/18/2018 Systemic lupus PANEL 7:24 AM CDT erythematosus with endocarditis, unspecified SLE type (HCC) Severe aortic valve regurgitation ESRD (end stage renal disease) (HCC) MRSA infection (methicillin-resistant Staphylococcus aureus) Pre-transplant evaluation for chronic kidney disease CYTOMEGALOVIRUS ANTIBODY, Routine 01/18/2018 Systemic lupus IGM 7:24 AM CDT erythematosus with endocarditis, unspecified SLE type (HCC) Severe aortic valve regurgitation ESRD (end stage renal disease) (HCC) MRSA infection (methicillin-resistant Staphylococcus aureus) Pre-transplant evaluation for chronic kidney disease CYTOMEGALOVIRUS ANTIBODY, Routine 01/18/2018 Systemic lupus IGG 7:24 AM CDT erythematosus with endocarditis, unspecified SLE type (HCC) Severe aortic valve regurgitation ESRD (end stage renal disease) (HCC) MRSA infection (methicillin-resistant Staphylococcus aureus) Pre-transplant evaluation for chronic kidney disease CBC W/PLT COUNT & AUTO Routine 01/18/2018 Systemic lupus DIFFERENTIAL 7:24 AM CDT erythematosus with endocarditis, unspecified SLE type (HCC) Severe aortic valve regurgitation ESRD (end stage renal disease) (HCC) MRSA infection (methicillin-resistant Staphylococcus aureus) Pre-transplant evaluation for chronic kidney disease HEMOGLOBIN A1C Routine 01/18/2018 Systemic lupus 7:24 AM CDT erythematosus with endocarditis, unspecified SLE type (HCC) Severe aortic valve regurgitation ESRD (end stage renal disease) (HCC) MRSA infection (methicillin-resistant Staphylococcus aureus) Pre-transplant evaluation for chronic kidney disease LIPID PANEL Routine 01/18/2018 Systemic lupus 7:24 AM CDT erythematosus with endocarditis, unspecified SLE type (HCC) Severe aortic valve regurgitation ESRD (end stage renal disease) (HCC) MRSA infection (methicillin-resistant Staphylococcus aureus) Pre-transplant evaluation for chronic kidney disease HLA TYPING CII Routine 01/18/2018 Systemic lupus 7:24 AM CDT erythematosus with endocarditis, unspecified SLE type (HCC) Severe aortic valve regurgitation ESRD (end stage renal disease) (HCC) MRSA infection (methicillin-resistant Staphylococcus aureus) Pre-transplant evaluation for chronic kidney disease FLOW PRA CLASS II WITH Routine 01/18/2018 Systemic lupus REFLEX TO ANTIBODY 7:24 AM CDT erythematosus with SPECIFICITY endocarditis, unspecified SLE type (HCC) Severe aortic valve regurgitation ESRD (end stage renal disease) (HCC) MRSA infection (methicillin-resistant Staphylococcus aureus) Pre-transplant evaluation for chronic kidney disease FLOW PRA CLASS I WITH Routine 01/18/2018 Systemic lupus REFLEX TO ANTIBODY 7:24 AM CDT erythematosus with SPECIFICITY endocarditis, unspecified SLE type (HCC) Severe aortic valve regurgitation ESRD (end stage renal disease) (HCC) MRSA infection (methicillin-resistant Staphylococcus aureus) Pre-transplant evaluation for chronic kidney disease TRANSFUSION SERVICE 12/27/2017 REPORT - SCAN 6:04 PM CDT TYPE AND SCREEN, Routine 12/26/2017 Systemic lupus AUTOMATED 10:48 AM CDT erythematosus with endocarditis, unspecified SLE type (HCC) Severe aortic valve regurgitation ESRD (end stage renal disease) (HCC) MRSA infection (methicillin-resistant Staphylococcus aureus) Pre-transplant evaluation for chronic kidney disease after 07/14/2017 Results * TRANSFUSION SERVICE REPORT - SCAN (01/19/2018 5:54 PM CDT) Only the most recent of 2 results within the time period is included. Narrative Performed At * Ultrasound abdomen complete (01/18/2018 11:14 AM CDT) Narrative Performed At FINAL REPORT [facility] Ultrasound of the Abdomen, complete Clinical History:Renal transplant evaluation Comparison: Abdominal ultrasound from 12/25/2016 Discussion: Sonographic evaluation of the abdomen is performed. Liver: Measures 16.3 cm in length at the right midclavicular line. Normal echogenicity.No lesion is identified by ultrasound.Main portal vein diameter measures 1.2 cm. Biliary tree:Common duct measures 5 mm.No intrahepatic biliary dilatation. Gallbladder: Surgically absent. Pancreas: Not well seen due to overlying bowel gas. Ascites:None seen Spleen:Measures 13.4 cm in length. Kidneys: Right kidney measures 9 x 4.3 x 4 cm.Left kidney measures 10.9 x 3.9 x 4.1 cm.Normal cortical echogenicity. No shadowing calculus, no hydronephrosis. IVC/Aorta:Segments partially seen. Impression: Spleen enlarged measuring 13.4 cm in length. Findings of prior cholecystectomy. Otherwise, unremarkable abdominal ultrasound. Signed: Ted Dowling MD Report Verified Date/Time:01/18/2018 14:26:38 Reading Location: [address] Radiology Reading Room Procedure Note Interface, External Ris In - 01/18/2018 2:28 PM CDT FINAL REPORT Ultrasound of the Abdomen, complete Clinical History: Renal transplant evaluation Comparison: Abdominal ultrasound from 12/25/2016 Discussion: Sonographic evaluation of the abdomen is performed. Liver: Measures 16.3 cm in length at the right midclavicular line. Normal echogenicity. No lesion is identified by ultrasound. Main portal vein diameter measures 1.2 cm. Biliary tree: Common duct measures 5 mm. No intrahepatic biliary dilatation. Gallbladder: Surgically absent. Pancreas: Not well seen due to overlying bowel gas. Ascites: None seen Spleen: Measures 13.4 cm in length. Kidneys: Right kidney measures 9 x 4.3 x 4 cm. Left kidney measures 10.9 x 3.9 x 4.1 cm. Normal cortical echogenicity. No shadowing calculus, no hydronephrosis. IVC/Aorta: Segments partially seen. Impression: Spleen enlarged measuring 13.4 cm in length. Findings of prior cholecystectomy. Otherwise, unremarkable abdominal ultrasound. Signed: Ted Dowling MD Report Verified Date/Time: 01/18/2018 14:26:38 Reading Location: [address] Radiology Reading Room Performing Organization Address City/State/Zipcode Phone Number [email or web address] * XR chest 2 views (01/18/2018 9:39 AM CDT) Narrative Performed At FINAL REPORT [email or web address] Chest, two views HISTORY: Renal transplant evaluation COMPARISON: 01/15/2017 DISCUSSION: Interval development of a moderate left pleural effusion with left lower lung atelectasis and consolidation. Trace right pleural effusion. Interval removal of right-sided PICC. Cardiomediastinal silhouette is mildly enlarged. No acute osseous abnormality. Lungs otherwise clear without focal consolidation. IMPRESSION: Moderate left pleural effusion with left lower lung atelectasis and consolidation. Trace right pleural effusion. Signed: Ted Dowling MD Report Verified Date/Time:01/18/2018 09:41:39 Reading Location: [address] Radiology Reading Room Procedure Note Interface, External Ris In - 01/18/2018 9:43 AM CDT FINAL REPORT Chest, two views HISTORY: Renal transplant evaluation COMPARISON: 01/15/2017 DISCUSSION: Interval development of a moderate left pleural effusion with left lower lung atelectasis and consolidation. Trace right pleural effusion. Interval removal of right-sided PICC. Cardiomediastinal silhouette is mildly enlarged. No acute osseous abnormality. Lungs otherwise clear without focal consolidation. IMPRESSION: Moderate left pleural effusion with left lower lung atelectasis and consolidation. Trace right pleural effusion. Signed: Ted Dowling MD Report Verified Date/Time: 01/18/2018 09:41:39 Reading Location: [address] Radiology Reading Room Performing Organization Address City/State/[facility] Phone Number GE RIS * ECG 12 lead (01/18/2018 8:20 AM CDT) Narrative Performed At Ventricular Rate 86 BPM GE MUSE Atrial Rate 86 BPM P-R Interval 224 ms QRS Duration 144 ms Q-T Interval 428 ms QTC Calculation(Bazett) 512 ms P Verdon 43 degrees R Verdon -27 degrees T Verdon 67 degrees Sinus rhythm with 1st degree A-V block Right bundle branch block Abnormal ECG When compared with ECG of 10-JAN-2017 05:56, T wave inversion no longer evident in Anterior leads Confirmed by Tony Nunez ([id number]) on 01/18/2018 7:08:33 PM Procedure Note Interface, External Ris In - 01/18/2018 7:08 PM CDT Ventricular Rate 86 BPM Atrial Rate 86 BPM P-R Interval 224 ms QRS Duration 144 ms Q-T Interval 428 ms QTC Calculation(Bazett) 512 ms P Verdon 43 degrees R Verdon -27 degrees T Verdon 67 degrees Sinus rhythm with 1st degree A-V block Right bundle branch block Abnormal ECG When compared with ECG of 10-JAN-2017 05:56, T wave inversion no longer evident in Anterior leads Confirmed by Tony Nunez ([id number]) on 01/18/2018 7:08:33 PM Performing Organization Address City/[facility] Phone Number GE MUSE * HLA TYPING CII (01/18/2018 7:24 AM CDT) HLA-DR AG1 4 [facility] TEST[facility] HLA-DR AG2 7 [facility] TESTING HLA-DR AG3-1 [facility] TESTING HLA-DR AG3-2 [facility] TESTING HLA-DR AG4-1 53 [facility] TESTING HLA-DR AG4-2 53 [facility] HLA TESTING HLA-DR AG5-1 [facility] HLA TESTING HLA-DR AG5-2 [facility] TESTING HLA-DQA1 AG 1-1 03 [facility] TESTING HLA-DQA1 AG 1-2 02 [facility] TESTING HLA-DQB1 AG 1-1 8 [facility] TESTING HLA-DQB1 AG 1-2 2 [facility] TESTING HLA-DPA1 AG 1-1 01 [facility] TESTING HLA-DPA1 AG 1-2 01 [facility] TEST[facility] HLA-DPB1 AG 1-1 04:01 [facility] TESTING HLA-DPB1 AG 1-2 04:02 [facility] TEST[facility] HLA-AG Notes [facility] HLA-AG Report Comments [facility] Specimen Blood Narrative Performed At Disclaimer: [facility] HLA TESTING This test was developed and its performance characteristics determined by the [facility]. It has not been cleared or approved by the U.S. Food and Drug Administration. The FDA has determined that such clearance or approval is not necessary. This test is used for clinical purposes. It should not be regarded as investigational or for research. This laboratory is certified under the Clinical Laboratory Improvement Amendments of 1988 (CLIA-88) as qualified to perform high complexity clinical laboratory testing. Performing Organization Address City/[facility] Phone Number [facility] HLA TESTING ONE Omar Madrid, MS: [id number], [place] [address] CLIA#[id number] CAP#[id number] UNOS#[id number] * HLA TYPING CI (01/18/2018 7:24 AM CDT) HLA-A AG1 2 [facility] TEST[facility] HLA-A AG2 3 [facility] TESTING HLA-B AG1 48 [facility] HLA TESTING HLA-B AG2 51 [facility] TESTING HLA-C AG1 8 [facility] TESTING HLA-C AG2 16 [facility] TESTING HLA-B BW1 6 [facility] TESTING HLA-B BW2 4 [facility] TEST[facility] HLA-AG Notes [facility] TEST[facility] HLA-AG Report Comments [facility] TEST[facility] Specimen Blood Narrative Performed At Disclaimer: [facility] TEST[facility] This test was developed and its performance characteristics determined by the [facility]. It has not been cleared or approved by the U.S. Food and Drug Administration. The FDA has determined that such clearance or approval is not necessary. This test is used for clinical purposes. It should not be regarded as investigational or for research. This laboratory is certified under the Clinical Laboratory Improvement Amendments of 1988 (CLIA-88) as qualified to perform high complexity clinical laboratory testing. Performing Organization Address City/[facility]code Phone Number [facility] HLA TESTING ONE Omar Madrid, MS: [id number], [place] [address] CLIA#[id number] CAP#[id number] UNOS#[id number] * FLOW PRA CLASS II WITH REFLEX TO ANTIBODY SPECIFICITY (01/18/2018 7:24 AM CDT) Flow Class II Percent 85 [facility] Positive Flow Class Report [facility] Comments Specimen Blood Narrative Performed At Disclaimer: [facility] This test was developed and its performance characteristics determined by the [facility]. It has not been cleared or approved by the U.S. Food and Drug Administration. The FDA has determined that such clearance or approval is not necessary. This test is used for clinical purposes. It should not be regarded as investigational or for research. This laboratory is certified under the Clinical Laboratory Improvement Amendments of 1988 (CLIA-88) as qualified to perform high complexity clinical laboratory testing. Performing Organization Address City/[facility] Phone Number [facility] ONE Omar Madrid, MS: [id number], [place] [address] CLIA#[id number] CAP#[id number] UNOS#[id number] * FLOW PRA CLASS I WITH REFLEX TO ANTIBODY SPECIFICITY (01/18/2018 7:24 AM CDT) Flow Class I Percent 92 [facility] Positive Flow Class Report [facility] TEST[facility] Comments Specimen Blood Narrative Performed At Disclaimer: [facility] HLA TESTING This test was developed and its performance characteristics determined by the [facility]. It has not been cleared or approved by the U.S. Food and Drug Administration. The FDA has determined that such clearance or approval is not necessary. This test is used for clinical purposes. It should not be regarded as investigational or for research. This laboratory is certified under the Clinical Laboratory Improvement Amendments of 1988 (CLIA-88) as qualified to perform high complexity clinical laboratory testing. Performing Organization Address City/[facility] Phone Number [facility] ONE Omar Madrid, MS: [id number], [place] [address] CLIA#[id number] CAP#[id number] UNOS#[id number] * AB SPECIFICITY CLASS II (01/18/2018 7:24 AM CDT) AB Specificity Class II DR:8 11 12 13 14 17 18 [facility] TEST[facility] DRw:52 DQ:7 DQA:05:05 05:01 05:03 06:01 DP:1 3 5 6 9 10 11 13 14 17 19 20 DPA:02:01 02:02 03:01 AB Specificity Titr Class MFIs > 4000 [facility] TEST[facility] Report Specimen Blood Narrative Performed At Disclaimer: [facility] TEST[facility] This test was developed and its performance characteristics determined by the [facility]. It has not been cleared or approved by the U.S. Food and Drug Administration. The FDA has determined that such clearance or approval is not necessary. This test is used for clinical purposes. It should not be regarded as investigational or for research. This laboratory is certified under the Clinical Laboratory Improvement Amendments of 1988 (CLIA-88) as qualified to perform high complexity clinical laboratory testing. Performing Organization Address City/State/[facility] Hospitalcode Phone Number [facility] HLA TESTING ONE Omar Madrid, MS: [id number], [place] [id number] CLIA#[id number] CAP#[id number] UNOS#[id number] * AB SPECIFICITY CLASS I (01/18/2018 7:24 AM CDT) AB Specificity Class I A:1 11 23 24:02 25 26 29 34 36 [facility] TESTING 43 66:01 80 B:8 13 18 27:05 37 41 44 45 47 49 50 59 60 61 73 76 82 Cw:4 5 6 7 18 AB Specificity Titr Class MFIs > 4000 [facility] TEST[facility] Report Specimen Blood Narrative Performed At Disclaimer: [facility] TESTING This test was developed and its performance characteristics determined by the [facility]. It has not been cleared or approved by the U.S. Food and Drug Administration. The FDA has determined that such clearance or approval is not necessary. This test is used for clinical purposes. It should not be regarded as investigational or for research. This laboratory is certified under the Clinical Laboratory Improvement Amendments of 1988 (CLIA-88) as qualified to perform high complexity clinical laboratory testing. Performing Organization Address City/State/[facility] Phone Number [facility] HLA TESTING ONE Omar Madrid, MS: [id number], [place] [id number] CLIA#[id number] CAP#[id number] UNOS#[id number] * T Spot TB (01/18/2018 7:24 AM CDT) T-Spot TB Negative [facility] Neg Ctrl Spot Count 0 [facility] Panel A Spot 1 [facility] Panel B Spot 1 [facility] Pos Ctrl Spot Ct 0 [facility] Scan Result [facility] Specimen Blood Narrative Performed At Performing Organization Address City/State/Zipcode Phone Number [facility] [address] [place] [address] LABORATORIES 100 * PT/aPTT (01/18/2018 7:24 AM CDT) Protime 16.6 (H) 11.7 - 14.7 seconds [facility] INR 1.3 <=5.9 [facility] PTT 62.5 (H) 22.5 - 36.0 seconds [facility] Specimen Blood Narrative Performed At RECOMMENDED COUMADIN/WARFARIN INR THERAPY RANGES [facility] STANDARD DOSE: 2.0 - 3.0 Includes: PROPHYLAXIS for venous thrombosis, [facility] systemic embolization; TREATMENT for venous thrombosis and/or pulmonary embolus. HIGH RISK: Target INR is 2.5-3.5 for patients with mechanical heart valves. Performing Organization Address City/State/Zipcode Phone Number [address] [address] [facility] * HIV-1 Antigen with HIV-1/2 Antibody (01/18/2018 7:24 AM CDT) HIV-1 Antigen with HIV NON-REACTIVE Nonreactive [facility] 1&2 Antibody [facility] Specimen Blood Performing Organization Address City/[facility]code Phone Number [address] [address] [facility] * 1:1 MIXING STUDY, NON-INCUBATED (01/18/2018 7:24 AM CDT) Protime 16.0 (H) 11.7 - 14.7 seconds [facility] PTT 55.3 (H) 22.5 - 36.0 seconds [facility] PT 06/26 Mix 14.6 11.7 - 14.7 SECS [facility] PTT 1 Mix 37.2 (H) 22.5 - 36.0 SECS [facility] Specimen Blood Performing Organization Address City/[facility]/Zipcode Phone Number [place] [id number] [place] [address] [phone] [place] [address] * CBC with platelet count + automated diff (01/18/2018 7:24 AM CDT) WBC 9.6 3.5 - 10.5 K/L [facility] RBC 4.35 (L) 4.63 - 6.08 M/L [facility] Hemoglobin 12.1 (L) 13.7 - 17.5 GM/DL [facility] Hematocrit 39.5 (L) 40.1 - 51.0 % [facility] MCV 90.8 79.0 - 92.2 fL [facility] MCH 27.8 25.7 - 32.2 pg [facility] MCHC 30.6 (L) 32.3 - 36.5 GM/DL [facility] RDW 16.0 (H) 11.6 - 14.4 % [facility] Platelets 252 150 - 450 K/CU MM [facility] MPV 9.5 9.4 - 12.4 fL [facility] nRBC 0 0 - 0 /100 WBC [facility] % Neutros 70 % [facility] % Lymphs 16 % [facility] % Monos 9 % [facility] % Eos 4 % [facility] % Baso 0 % [facility] # Neutros 6.69 (H) 1.78 - 5.38 K/L [facility] # Lymphs 1.53 1.32 - 3.57 K/L [facility] # Monos 0.88 (H) 0.30 - 0.82 K/L [facility] # Eos 0.40 0.04 - 0.54 K/L [facility] # Baso 0.04 0.01 - 0.08 K/L [facility] Immature 1 0 - 1 % [facility] Granulocytes-Relative [facility] Specimen Blood Performing Organization Address City/[facility]/Zipcode Phone Number [address] * Hepatitis C Antibody (01/18/2018 7:24 AM CDT) Hepatitis C Ab NON-REACTIVE Nonreactive [facility] Specimen Blood Performing Organization Address City/State/Zipcode Phone Number [address] * Cytomegalovirus antibody, IgM (01/18/2018 7:24 AM CDT) CMV IGM Negative Negative, Equivocal [facility] Specimen Blood Narrative Performed At CMV IgM Result Interpretation: [facility] </=0.8 Al Negative [facility] 0.9-1.0 Al Equivocal >/=1.1 Al Positive Performing Organization Address City/[facility] Phone Number [address] * Double-Stranded DNA (dsDNA) Antibody (01/18/2018 7:24 AM CDT) ds DNA Ab Negative [facility] Specimen Blood Performing Organization Address City/[facility] Phone Number [address] * Hepatitis B core antibody, IgM (01/18/2018 7:24 AM CDT) Hep B C IgM NON-REACTIVE Nonreactive [facility] Specimen Blood Performing Organization Address City/[facility] Phone Number [address] * EBV-VCA antibody, IgM (01/18/2018 7:24 AM CDT) OMER [place] VIRAL CAPSID Negative Negative, Equivocal [facility] ANTIGEN IGM [facility] Specimen Blood Narrative Performed At Omer [place]end[place] Viral Capsid Antigen IgM Result Interpretation: [facility] </=0.8 Al Negative [facility] 0.9-1.0 Al Equivocal >/=1.1 Al Positive Performing Organization Address City/[facility] Phone Number [address] * EBV-VCA antibody, IgG (01/18/2018 7:24 AM CDT) OMER [place] VIRAL CAPSID Positive (A) Negative, Equivocal [facility] ANTIGEN IGG [facility] Specimen Blood Narrative Performed At Omer [place] Viral Capsid Antigen IgG Result Interpretation: [facility] </=0.8 Al Negative [facility] 0.9-1.0 Al Equivocal >/=1.1 Al Positive Performing Organization Address City/[facility] Phone Number [address] * Blood typing, automated (01/18/2018 7:24 AM CDT) ABO/RH AUTOMATED (BEAKER) O POSITIVE [facility] Specimen Blood Performing Organization Address City/[facility] Phone Number [address] * RPR (01/18/2018 7:24 AM CDT) RPR Nonreactive Nonreactive [facility] Specimen Blood Performing Organization Address City/[facility] Phone Number [address] * Hepatitis B surface antibody (01/18/2018 7:24 AM CDT) Hep B S Ab <8.0 <8.0 mIU/mL [facility] Specimen Blood Performing Organization Address City/[facility] Phone Number [address] * Hepatitis B surface antigen (01/18/2018 7:24 AM CDT) hepatitis B Surface Ag NON-REACTIVE Nonreactive [facility] Specimen Blood Performing Organization Address [facility] Hospital[facility] Phone Number [address] * Cytomegalovirus antibody, IgG (01/18/2018 7:24 AM CDT) CYTOMEGALOVIRUS, IGG Positive (A) Negative, Equivocal [facility] Specimen Blood Narrative Performed At CMV IgG Result Interpretation: [facility] </=0.8 Al Negative [facility] 0.9-1.0 Al Equivocal >/=1.1 AlPositive Performing Organization Address [facility] Phone Number [address] * Cardiolipin Antibodies, IgG and IgM (01/18/2018 7:24 AM CDT) Anticardiolipin IgG 3.3 <20.0 GPL [facility] Anticardiolipin IgM 0.9 <20.0 MPL [facility] Specimen Blood Narrative Performed At Anticardiolipin IgG Result Interpretation: [facility] <20.0 GPL Normal [facility] >/=20.0 GPL Positive Anticardiolipin IgM Result Interpretation: <20.0 MPL Normal >/=20.0 MPL Positive Performing Organization Address [facility] Phone Number [address] * Direct AHG (KOREY)/Direct Ciara (01/18/2018 7:24 AM CDT) Direct AHG-IGG NEGATIVE [facility] Direct AHG-C3B, C3D NEGATVIE [facility] Specimen Blood Performing Organization Address [facility] Phone Number [place] [phone] [place] [address] * Varicella Zoster Antibody, IgG (01/18/2018 7:24 AM CDT) Varicella IgG >8.0 [facility] Specimen Blood Narrative Performed At VARICELLA ZOSTER RESULT INTERPRETATIONS: [facility] <=0.8 AlNonreactive:Presumed non-immune to VZV [facility] 0.9-1.0 AlEquivocal >=1.1 AlReactive:Presumed immune to VZV Performing Organization Address City/[facility] Phone Number [address] * Complement Component C3 (01/18/2018 7:24 AM CDT) C3 Complement 190 82 - 193 mg/dL [facility] Specimen Blood Performing Organization Address [facility] Phone Number [address] * Complement Component C4 (01/18/2018 7:24 AM CDT) C4 Complement 34 15 - 57 mg/dL [facility] Specimen Blood Performing Organization Address [facility] Phone Number [address] * Uric Acid (01/18/2018 7:24 AM CDT) Uric Acid 3.8 2.6 - 7.2 mg/dL [facility] Specimen Blood Performing Organization Address [facility] Phone Number [address] * Phosphorus (01/18/2018 7:24 AM CDT) Phosphorus 5.4 (H) 2.3 - 4.7 mg/dL [facility] Specimen Blood Performing Organization Address [facility] Phone Number [address] * PTH, Intact (01/18/2018 7:24 AM CDT) PTH 753.2 (H) 8.5 - 72.5 pg/mL [facility] Specimen Blood Performing Organization Address City/[facility]/Zipcode Phone Number [address] * Lactate Dehydrogenase (LDH) (01/18/2018 7:24 AM CDT) LDH 211 125 - 220 U/L [facility] Specimen Blood Performing Organization Address City/[facility] Phone Number [address] * Hemoglobin A1c (01/18/2018 7:24 AM CDT) Hemoglobin A1C 5.3 4.3 - 6.1 % [facility] Specimen Blood Performing Organization Address City/[facility] Phone Number [address] * Gamma Glutamyl Transferase (GGT) (01/18/2018 7:24 AM CDT) GGT 56 9 - 64 U/L [facility] Specimen Blood Performing Organization Address City/[facility] Phone Number [address] * Lipid panel (01/18/2018 7:24 AM CDT) Triglycerides 76 mg/dL [facility] Cholesterol 128 mg/dL [facility] HDL 41 mg/dL [facility] LDL Calculated 72 mg/dL [facility] Specimen Blood Narrative Performed At Triglyceride Reference Range: [facility] Low Risk <150 [facility] [id number] High Risk 200-499 Very High Risk>=500 Cholesterol Reference Range: Low Risk <200 [id number] High Risk>240 HDL Cholesterol Reference Range: Low Risk >=60 High Risk <40 LDL Cholesterol Reference Range: Optimal<100 Near [id number] Very High >=190 Performing Organization Address City/[facility]/Zipcode Phone Number [facility] [address] [place] [address] [facility] * Comprehensive metabolic panel (01/18/2018 7:24 AM CDT) Protein, Total 10.0 (H) 6.0 - 8.3 gm/dL [facility] Albumin 4.6 3.5 - 5.0 g/dL [facility] Alkaline Phosphatase 303 (H) 40 - 150 U/L [facility] Total Bilirubin 0.6 0.2 - 1.2 mg/dL [facility] Sodium 136 136 - 145 meq/L [facility] Potassium 4.0 3.5 - 5.1 meq/L [facility] Chloride 90 (L) 98 - 107 meq/L [facility] CO2 30 (H) 22 - 29 meq/L [facility] BUN 23 (H) 7 - 21 mg/dL [facility] Creatinine 7.23 (H) 0.57 - 1.25 mg/dL [facility] Glucose 87 70 - 105 mg/dL [facility] Calcium 10.2 8.4 - 10.2 mg/dL [facility] AST 16 5 - 34 U/L [facility] ALT 15 6 - 55 U/L [facility] EGFR 9Comment: ESTIMATED GFR IS NOT mL/min/1.73 sq m [facility] ACCURATE CREATININE [facility] CLEARANCE IN PREDICTING GLOMERULAR FILTRATION RATE. ESTIMATED GFR IS NOT APPLICABLE FOR DIALYSIS PATIENTS. Specimen Blood Performing Organization Address City/[facility]/Zipcode Phone Number [facility] [address] [place] [address] [facility] * Type and Screen, Automated (12/26/2017 10:48 AM CDT) ABO/RH AUTOMATED (BEAKER) O POSITIVE [facility] Ab Scrn NEGATIVE [facility] Specimen Blood Performing Organization Address City/State/Zipcode Phone Number [facility] [address] [place] [address] [facility] after 07/14/2017 Insurance Payer Benefit Subscriber ID Type Phone Address Plan / Group MEDICARE MEDICARE A xxxxxxxxxx Medicare B MEDICAID MEDICAID xxxxxxxxx Medicaid [place] Advance Directives For more information, please contact: [facility] [address] [place] [address] Date Inactivated Comments Code Status Date Activated 02/10/2017 8:41 PM Full Code 02/04/2017 12:49 AM This code status was determined by: Patient 02/04/2017 12:49 AM Full Code 01/16/2017 3:47 PM This code status was determined by: Patient 12/27/2016 7:01 PM Full Code 12/24/2016 10:05 PM This code status was determined by: Patient 12/09/2016 9:45 PM Full Code 12/04/2016 9:16 PM This code status was determined by: Patient 05/31/2016 8:16 PM Full Code 05/31/2016 8:09 AM This code status was determined by: Patient
--- NOTE | 2018-07-15 20:18 | Diagnostic Imaging Report ---
EXAM: CHEST 2 VIEWS, PA and lateral INDICATION: Fever, pain with urination COMPARISON: PA and lateral view of the chest September 02, 2017 FINDINGS: LINES/TUBES: None LUNGS: Bibasilar atelectasis. PLEURA: Small bilateral pleural effusions. HEART AND MEDIASTINUM: The heart is within normal size limits. Stable median sternotomy wires. BONES AND SOFT TISSUES: No acute findings. IMPRESSION: Bibasilar atelectasis and small bilateral pleural effusions. Signed by: Dr. Claribel Cabrera M.D. on 07/15/2018 8:14 PM
[2018-07-15 20:22] LABS: STREPTOCOCCUS GRP A ANTIGEN NEGATIVE (NEGATIVE)
[2018-07-15] MEDS ORDERED: IBUPROFEN 600 MG TAB PO STA (20:34)
[2018-07-15 20:35] LABS: INFLUENZAE A&B ANTIGEN (RAPID) NEGATIVE (NEGATIVE)
[2018-07-15 20:48] LABS: BASOPHILS % 0.2 % (0.0-1.0); EOSINOPHILS # (AUTO) 0.2 (0.0-0.4); EOSINOPHILS % 1.2 % (0.0-6.0); HEMATOCRIT 34.3 % (38.2-49.6); HEMOGLOBIN 12.2 g/dL (14.0-18.0); LYMPHOCYTES # (AUTO) 1.2 (1.0-3.2); LYMPHOCYTES % 8.2 % (18.0-39.1); MEAN CORPUSCULAR HEMOGLOBIN 32.4 pg (28-32); MEAN CORPUSCULAR HGB CONC 35.6 g/dL (31-35); MONOCYTES # (AUTO) 1.1 (0.2-0.8); MONOCYTES % 7.1 % (4.4-11.3); NEUTROPHILS # (AUTO) 12.4 (2.1-6.9); NEUTROPHILS % 82.9 % (38.7-80.0); PLATELET COUNT 161 x10e3/uL (140-360); RED BLOOD COUNT 3.77 x10e6/uL (4.3-5.7); RED CELL DISTRIBUTION WIDTH 14.1 % (11.7-14.4)
[2018-07-15 21:00] LABS: BILIRUBIN,URINE NEGATIVE (NEGATIVE); KETONES,URINE NEGATIVE (NEGATIVE); LEUKOCYTE ESTERASE ,URINE NEGATIVE (NEGATIVE); NITRITE,URINE NEGATIVE (NEGATIVE); PROTEIN,URINE DIPSTICK 2+ (NEGATIVE); URINE UROBILINOGEN 0.2 mg/dL (0.2 - 1)
[2018-07-15 21:06] LABS: ALBUMIN 3.6 g/dL (3.5-5.0); ALBUMIN/GLOBULIN RATIO 0.8 (0.8-2.0); ANION GAP 21.3 mmol/L (8-16); CREATININE, SERUM 11.66 mg/dL (0.72-1.25); POTASSIUM 4.3 mmol/L (3.5-5.1)
[2018-07-15 21:09] LABS: CLARITY,URINE CLEAR (CLEAR); COLOR,URINE YELLOW (YELLOW); EPITHELIAL CELLS,URINE RARE /LPF; HYALINE CASTS 0-1 (0-1); RBC,URINE 0-5 /HPF (0-5); WBC,URINE (MAN) 0-5 /HPF (0-5)
[2018-07-15] MEDS ORDERED: VANCOMYCIN 1GM/NS 250 ML 250 ML IV ONE (21:45)
[2018-07-15 22:25] VITALS: BP 113/78
== END 2018-07-16 00:04 | disposition home or self-care (01) ==
LOC: ER 19:40
DX: R50.9 Fever, unspecified (principal); I12.0 Hypertensive chronic kidney disease with stage 5 chronic kidney disease or end stage renal disease; N18.6 End stage renal disease; Z99.2 Dependence on renal dialysis; M32.9 Systemic lupus erythematosus, unspecified; K21.9 Gastro-esophageal reflux disease without esophagitis; E78.5 Hyperlipidemia, unspecified
CPT/HCPCS: 36415; 71046; 80053; 81001; 83518; 85025; 87040; 87070; 87400; 99283; J3370

== ENCOUNTER 2018-07-16 13:54 | Inpatient (IN) | payer MEDICARE, OTHER ==
[~2018-07-16] VITALS: Ht 190.5 cm; Wt 99.9 kg
--- OUTSIDE RECORDS SUMMARY | 2018-07-16 13:58 | XMS REPORT | Clinical Summary ---
Author Author JEANNINE [facility] Address Unknown Phone Unavailable Care Team Providers Care Machine Stuffer Automatic Name Role Phone RizviMario horner Evitachhaya PCP [...] by mouth 2 (two) times daily. 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 Crane ,Dr. Bowles, AVF SLE [...] Transplant Florencia Gonzalez 11/17/2017 Abstract Transplant after 07/15/2017 Immunizations Name Dates Previously Given Next Due [...] Lot Implanted Type Area Manufactur er 05/25/2017 [id number] / / [id number] Sealr Hemstat Coseal 8ml [id number] - Cement/Freedom N/A: Chest KEENE:MED [id number] ler/Adhesi DEL Implanted: Qty: 1 on 12/27/2016 by Candelario Loyola 01/23/2019 [id number] / / [id number] Patch Vasc [place] 1.65mm 1x6in Graft/Patc N/A: Chest CR [id number] - [id number] BARD:PERIP Implanted: Qty: 1 on 12/27/2016 by HERAL Beau Holt MD 08/26/2020 HVA-L / ID:[id number] / Cryo.Aortic Valve Tissue N/A: Chest LIFENET Implanted: Qty: 1 on 12/27/2016 by Graft/Subs Beau Cross MD titute 04/19/2021 [id number] / [id number] / [id number] Patch Periph Vascu-Grd 2x9cm Tissue N/A: Chest SYNOVIS [id number] - Spn [id number] Graft/Subs LIFE Implanted: Qty: 1 on 12/27/2016 by titute TECH:SURG Beau Cross MD INNOV 11/17/2017 TFGT-25A / [id number] / Valve Tiss Trifecta W/Gld 25a Valves N/A: Heart ST ROBI Tfgt-25a - [id number] MED:CARDIA Implanted: Qty: 1 on 03/04/2016 by Beto Grewal MD Explanted: 10/24/2019 [id number] / / [id number] Ring Semiflex 30mm Mounted [id number] Valves N/A: Heart MEDTRONIC: - [id number] STRUCTURAL Implanted: Qty: 1 on 12/27/2016 by [...] Pre-transplant evaluation for chronic kidney disease after 07/15/2017 Results * TRANSFUSION SERVICE REPORT - SCAN (01/19/2018 5:54 PM CDT) Only the most recent of 2 results within the time period is included. Narrative Performed At * Ultrasound abdomen complete (01/18/2018 11:14 AM CDT) Narrative Performed At FINAL REPORT [facility] Ultrasound of the Abdomen, complete Clinical History:Renal [...] MD Report Verified Date/Time:01/18/2018 14:26:38 Reading Location: [address] Radiology Reading Room Procedure Note Interface, [...] Report Verified Date/Time: 01/18/2018 14:26:38 Reading Location: [address] Radiology Reading Room Performing Organization Address City/State/Zipcode Phone Number GE [employer] * XR chest 2 views (01/18/2018 9:39 AM CDT) Narrative Performed At FINAL REPORT [employer] Chest, two views HISTORY: Renal transplant evaluation [...] MD Report Verified Date/Time:01/18/2018 09:41:39 Reading Location: [address] Radiology Reading Room Procedure Note Interface, [...] Report Verified Date/Time: 01/18/2018 09:41:39 Reading Location: [address] Radiology Reading Room Performing Organization Address City/State/[facility] Phone Number GE RIS * ECG 12 lead (01/18/2018 8:20 AM CDT) Narrative Performed At Ventricular Rate 86 BPM GE MUSE Atrial Rate 86 BPM P-R Interval 224 ms QRS Duration 144 ms Q-T Interval 428 ms QTC Calculation(Bazett) 512 ms P [place] 43 degrees R [place] -27 degrees T [place] 67 degrees Sinus rhythm with 1st degree [...] 428 ms QTC Calculation(Bazett) 512 ms P [place] 43 degrees R [place] -27 degrees T [place] 67 degrees Sinus rhythm with 1st degree A-V block Right bundle branch block Abnormal ECG When compared with ECG of 10-JAN-2017 05:56, T wave inversion no longer evident in Anterior leads Confirmed by Tony Nunez ([id number]) on 01/18/2018 7:08:33 PM Performing Organization Address City/[facility] Phone Number GE MUSE * HLA TYPING CII (01/18/2018 7:24 AM CDT) HLA-DR AG1 4 [facility] HLA-DR AG2 7 [facility] HLA-DR AG3-1 [facility] HLA-DR AG3-2 [facility] HLA-DR AG4-1 53 [facility] HLA-DR AG4-2 53 [facility] HLA[facility]DR AG5-1 [facility] HLA-DR AG5-2 [facility] HLA-DQA1 AG 1-1 03 [facility] HLA-DQA1 AG 1-2 02 [facility] HLA-DQB1 AG 1-1 8 [facility] HLA-DQB1 AG 1-2 2 [facility] HLA-DPA1 AG 1-1 01 [facility] HLA-DPA1 AG 1-2 01 [facility] HLA-DPB1 AG 1-1 04:01 [facility] HLA-DPB1 AG 1-2 04:02 [facility] HLA-AG Notes [facility] HLA-AG Report Comments [facility] Specimen Blood Narrative Performed At Disclaimer: [facility] This test was developed and its performance characteristics determined by the [facility] Laboratory. It has not been cleared or [...] complexity clinical laboratory testing. Performing Organization Address City/[facility] Phone Number [facility] [address], MS: [id number], [place] [address] CLIA#[id number] CAP#[id number] UNOS#[id number] * HLA TYPING CI (01/18/2018 7:24 AM CDT) HLA-A AG1 2 [facility] HLA-A AG2 3 [facility] HLA-B AG1 48 [facility] HLA-B AG2 51 [facility] HLA-C AG1 8 [facility] HLA-C AG2 16 [facility] HLA-B BW1 6 [facility] HLA-B BW2 4 [facility] HLA-AG Notes [facility] HLA-AG Report Comments [facility] Specimen Blood Narrative Performed At Disclaimer: [facility] This test was developed and its performance characteristics determined by the [facility] Laboratory. It has not been cleared or [...] complexity clinical laboratory testing. Performing Organization Address City/[facility] Phone Number [facility] [address], MS: [id number], [place] [address] CLIA#[id number] CAP#[id number] UNOS#[id number] * FLOW PRA CLASS II WITH REFLEX TO ANTIBODY SPECIFICITY (01/18/2018 7:24 AM CDT) Flow Class II Percent 85 [facility] Positive Flow Class Report [facility] Comments Specimen Blood Narrative Performed At Disclaimer: [facility] This test was developed and its performance characteristics determined by the [facility] Laboratory. It has not been cleared or [...] complexity clinical laboratory testing. Performing Organization Address City/[facility] Phone Number [facility] [address], MS: [id number], [place] [address] CLIA#[id number] CAP#[id number] UNOS#[id number] * FLOW PRA CLASS I WITH REFLEX TO ANTIBODY SPECIFICITY (01/18/2018 7:24 AM CDT) Flow Class I Percent 92 [facility] Positive Flow Class Report [facility] Comments Specimen Blood Narrative Performed At Disclaimer: [facility] This test was developed and its performance characteristics determined by the [facility] Laboratory. It has not been cleared or [...] complexity clinical laboratory testing. Performing Organization Address City/[facility] Phone Number [facility] [address], MS: [id number], [place] [address] CLIA#[id number] CAP#[id number] UNOS#[id number] * AB SPECIFICITY CLASS II (01/18/2018 7:24 AM CDT) AB Specificity Class II DR:8 11 12 13 14 17 18 [facility] DRw:52 DQ:7 DQA:05:05 05:01 05:03 06:01 DP:1 3 5 6 9 10 11 13 14 17 19 20 DPA:02:01 02:02 03:01 AB Specificity Titr Class MFIs > 4000 [facility] Report Specimen Blood Narrative Performed At Disclaimer: [facility] This test was developed and its performance characteristics determined by the [facility] Laboratory. It has not been cleared or [...] complexity clinical laboratory testing. Performing Organization Address City/State/[facility] Phone Number [facility] [address], MS: [id number], [place] [id number] CLIA#[id number] CAP#[id number] UNOS#[id number] * AB SPECIFICITY CLASS I (01/18/2018 7:24 AM CDT) AB Specificity Class I A:1 11 23 24:02 25 26 29 34 36 [facility] 43 66:01 80 B:8 13 18 27:05 37 41 44 45 47 49 50 59 60 61 73 76 82 Cw:4 5 6 7 18 AB Specificity Titr Class MFIs > 4000 [facility] Report Specimen Blood Narrative Performed At Disclaimer: [facility] This test was developed and its performance characteristics determined by the [facility] Laboratory. It has not been cleared or [...] complexity clinical laboratory testing. Performing Organization Address City/State/[facility] Phone Number [facility] [address], MS: [id number], [place] [id number] CLIA#[id number] CAP#[id number] UNOS#[id number] * T Spot TB (01/18/2018 7:24 [...] Address City/State/Zipcode Phone Number [facility] [address] [place] [address] LABORATORIES 100 * PT/aPTT (01/18/2018 7:24 AM CDT) Protime 16.6 (H) 11.7 - 14.7 seconds [facility] INR 1.3 <=5.9 [facility] PTT 62.5 (H) 22.5 - 36.0 seconds [facility] Specimen Blood Narrative Performed At RECOMMENDED COUMADIN/WARFARIN INR THERAPY RANGES [facility] STANDARD DOSE: 2.0 - 3.0 Includes: PROPHYLAXIS for venous thrombosis, [facility] systemic embolization; TREATMENT for venous thrombosis and/or pulmonary embolus. HIGH RISK: Target INR is 2.5-3.5 for patients with mechanical heart valves. Performing Organization Address City/State/Zipcode Phone Number [address] [address] [facility] * HIV-1 Antigen with HIV-1/2 Antibody (01/18/2018 7:24 AM CDT) HIV-1 Antigen with HIV NON-REACTIVE Nonreactive [facility] 1&2 Antibody [facility] Specimen Blood Performing Organization Address City/[facility] Phone Number [address] [address] [facility] * 1:1 MIXING STUDY, NON-INCUBATED (01/18/2018 7:24 AM CDT) Protime 16.0 (H) 11.7 - 14.7 seconds [facility] PTT 55.3 (H) 22.5 - 36.0 seconds [facility] PT 06/26 Mix 14.6 11.7 - 14.7 SECS [facility] PTT 1 Mix 37.2 (H) 22.5 - 36.0 SECS [facility] Specimen Blood Performing Organization Address City/[facility]/Zipcode Phone Number [place] [phone] [place] [address] [phone] [place] [address] * CBC with platelet count + automated diff (01/18/2018 7:24 AM CDT) WBC 9.6 3.5 - 10.5 K/L [facility] RBC 4.35 (L) 4.63 - 6.08 M/L [facility] Hemoglobin 12.1 (L) 13.7 - 17.5 GM/DL [facility] Hematocrit 39.5 (L) 40.1 - 51.0 % [facility] MCV 90.8 79.0 - 92.2 fL [facility] MCH 27.8 25.7 - 32.2 pg [facility] MCHC 30.6 (L) 32.3 - 36.5 GM/DL [facility] RDW 16.0 (H) 11.6 - 14.4 % [facility] Platelets 252 150 - 450 K/CU MM [facility] MPV 9.5 9.4 - 12.4 fL [facility] nRBC 0 0 - 0 /100 WBC [facility] % Neutros 70 % [facility] % Lymphs 16 % [facility] % Monos 9 % [facility] % Eos 4 % [facility] % Baso 0 % [facility] # Neutros 6.69 (H) 1.78 - 5.38 K/L [facility] # Lymphs 1.53 1.32 - 3.57 K/L [facility] # Monos 0.88 (H) 0.30 - 0.82 K/L [facility] # Eos 0.40 0.04 - 0.54 K/L [facility] # Baso 0.04 0.01 - 0.08 K/L [facility] Immature 1 0 - 1 % [facility] Granulocytes-Relative [facility] Specimen Blood Performing Organization Address City/[facility]/Zipcode Phone Number [address] * Hepatitis C Antibody (01/18/2018 7:24 AM CDT) Hepatitis C Ab NON-REACTIVE Nonreactive [facility] Specimen Blood Performing Organization Address City/State/Zipcode Phone Number [address] * Cytomegalovirus antibody, IgM (01/18/2018 7:24 AM CDT) CMV IGM Negative Negative, Equivocal [facility] Specimen Blood Narrative Performed At CMV IgM Result Interpretation: [facility] </=0.8 Al Negative [facility] 0.9-1.0 Al Equivocal >/=1.1 Al Positive Performing Organization Address City/[facility] Phone Number [address] * Double-Stranded DNA (dsDNA) Antibody (01/18/2018 7:24 AM CDT) ds DNA Ab Negative [facility] Specimen Blood Performing Organization Address City/[facility] Phone Number [address] * Hepatitis B core antibody, IgM (01/18/2018 7:24 AM CDT) Hep B C IgM NON-REACTIVE Nonreactive [facility] Specimen Blood Performing Organization Address City/[facility] Phone Number [address] * EBV-VCA antibody, IgM (01/18/2018 7:24 AM CDT) [place] VIRAL CAPSID Negative Negative, Equivocal [facility] ANTIGEN IGM [facility] Specimen Blood Narrative Performed At Omer [place] Viral Capsid Antigen IgM Result Interpretation: [facility] </=0.8 Al Negative [facility] 0.9-1.0 Al Equivocal >/=1.1 Al Positive Performing Organization Address City/[facility] Phone Number [address] * EBV-VCA antibody, IgG (01/18/2018 7:24 AM CDT) OMER [place] VIRAL CAPSID Positive (A) Negative, Equivocal [facility] ANTIGEN IGG [facility] Specimen Blood Narrative Performed At O[place] Viral Capsid Antigen IgG Result Interpretation: [facility] </=0.8 Al Negative [facility] 0.9-1.0 Al Equivocal >/=1.1 Al Positive Performing Organization Address City/[facility] Phone Number [address] * Blood typing, automated (01/18/2018 7:24 AM CDT) ABO/RH AUTOMATED (BEAKER) O POSITIVE [facility] Specimen Blood Performing Organization Address City/[facility] Phone Number [address] * RPR (01/18/2018 7:24 AM CDT) RPR Nonreactive Nonreactive [facility] Specimen Blood Performing Organization Address City/[facility] Phone Number [address] * Hepatitis B surface antibody (01/18/2018 7:24 AM CDT) Hep B S Ab <8.0 <8.0 mIU/mL [facility] Specimen Blood Performing Organization Address City/[facility] Phone Number [address] * Hepatitis B surface antigen (01/18/2018 7:24 AM CDT) hepatitis B Surface Ag NON-REACTIVE Nonreactive [facility] Specimen Blood Performing Organization Address [facility] Phone Number [address] * Cytomegalovirus antibody, IgG (01/18/2018 7:24 AM CDT) CYTOMEGALOVIRUS, IGG Positive (A) Negative, Equivocal [facility] Specimen Blood Narrative Performed At CMV IgG Result Interpretation: [facility] </=0.8 Al Negative [facility] 0.9-1.0 Al Equivocal >/=1.1 AlPositive Performing Organization Address [facility] Phone Number [address] * Cardiolipin Antibodies, IgG and IgM (01/18/2018 7:24 AM CDT) Anticardiolipin IgG 3.3 <20.0 GPL [facility] Anticardiolipin IgM 0.9 <20.0 MPL [facility] Specimen Blood Narrative Performed At Anticardiolipin IgG Result Interpretation: [facility] <20.0 GPL Normal [facility] >/=20.0 GPL Positive Anticardiolipin IgM Result Interpretation: <20.0 MPL Normal >/=20.0 MPL Positive Performing Organization Address [facility] Phone Number [address] * Direct AHG (KOREY)/Direct Ciara (01/18/2018 7:24 AM CDT) Direct AHG-IGG NEGATIVE [facility] Direct AHG-C3B, C3D NEGATVIE [facility] Specimen Blood Performing Organization Address [facility] Phone Number [place] [phone] [place] [address] * Varicella Zoster Antibody, IgG (01/18/2018 7:24 AM CDT) Varicella IgG >8.0 [facility] Specimen Blood Narrative Performed At VARICELLA ZOSTER RESULT INTERPRETATIONS: [facility] <=0.8 AlNonreactive:Presumed non-immune to VZV [facility] 0.9-1.0 AlEquivocal >=1.1 AlReactive:Presumed immune to VZV Performing Organization Address City/[facility] Phone Number [address] * Complement Component C3 (01/18/2018 7:24 AM CDT) C3 Complement 190 82 - 193 mg/dL [facility] Specimen Blood Performing Organization Address [facility] Phone Number [address] * Complement Component C4 (01/18/2018 7:24 AM CDT) C4 Complement 34 15 - 57 mg/dL [facility] Specimen Blood Performing Organization Address [facility] Phone Number [address] * Uric Acid (01/18/2018 7:24 AM CDT) Uric Acid 3.8 2.6 - 7.2 mg/dL [facility] Specimen Blood Performing Organization Address [facility] Phone Number [address] * Phosphorus (01/18/2018 7:24 AM CDT) Phosphorus 5.4 (H) 2.3 - 4.7 mg/dL [facility] Specimen Blood Performing Organization Address [facility] Phone Number [address] * PTH, Intact (01/18/2018 7:24 AM CDT) PTH 753.2 (H) 8.5 - 72.5 pg/mL [facility] Specimen Blood Performing Organization Address City/[facility]/Zipcode Phone Number [address] * Lactate Dehydrogenase (LDH) (01/18/2018 7:24 AM CDT) LDH 211 125 - 220 U/L [facility] Specimen Blood Performing Organization Address City/[facility] Phone Number [address] * Hemoglobin A1c (01/18/2018 7:24 AM CDT) Hemoglobin A1C 5.3 4.3 - 6.1 % [facility] Specimen Blood Performing Organization Address City/[facility] Phone Number [address] * Gamma Glutamyl Transferase (GGT) (01/18/2018 7:24 AM CDT) GGT 56 9 - 64 U/L [facility] Specimen Blood Performing Organization Address City/[facility] Phone Number [address] * Lipid panel (01/18/2018 7:24 AM CDT) Triglycerides 76 mg/dL [facility] Cholesterol 128 mg/dL [facility] HDL 41 mg/dL [facility] LDL Calculated 72 mg/dL [facility] Specimen Blood Narrative Performed At Triglyceride Reference Range: [facility] Low Risk <150 [facility] [id number] High Risk 200-499 Very High Risk>=500 Cholesterol Reference Range: Low Risk <200 [id number] High Risk>240 HDL Cholesterol Reference Range: Low Risk >=60 High Risk <40 LDL Cholesterol Reference Range: Optimal<100 Near [id number] [id number] [id number] Very High >=190 Performing Organization Address City/[facility]/Zipcode Phone Number [facility] [address] [place] [address] [facility] * Comprehensive metabolic panel (01/18/2018 7:24 AM CDT) Protein, Total 10.0 (H) 6.0 - 8.3 gm/dL [facility] Albumin 4.6 3.5 - 5.0 g/dL [facility] Alkaline Phosphatase 303 (H) 40 - 150 U/L [facility] Total Bilirubin 0.6 0.2 - 1.2 mg/dL [facility] Sodium 136 136 - 145 meq/L [facility] Potassium 4.0 3.5 - 5.1 meq/L [facility] Chloride 90 (L) 98 - 107 meq/L [facility] CO2 30 (H) 22 - 29 meq/L [facility] BUN 23 (H) 7 - 21 mg/dL [facility] Creatinine 7.23 (H) 0.57 - 1.25 mg/dL [facility] Glucose 87 70 - 105 mg/dL [facility] Calcium 10.2 8.4 - 10.2 mg/dL [facility] AST 16 5 - 34 U/L [facility] ALT 15 6 - 55 U/L [facility] EGFR 9Comment: ESTIMATED GFR IS NOT mL/min/1.73 sq m [facility] ACCURATE CREATININE [facility] CLEARANCE IN PREDICTING GLOMERULAR FILTRATION RATE. ESTIMATED GFR IS NOT APPLICABLE FOR DIALYSIS PATIENTS. Specimen Blood Performing Organization Address City/[facility]/Zipcode Phone Number [facility] [address] [place] [address] [facility] * Type and Screen, Automated (12/26/2017 10:48 AM CDT) ABO/RH AUTOMATED (BEAKER) O POSITIVE [facility] Ab Scrn NEGATIVE [facility] Specimen Blood Performing Organization Address City/State/Zipcode Phone Number [facility] [address] [place] [address] [facility] after 07/15/2017 Insurance Payer Benefit Subscriber ID Type Phone Address Plan / Group MEDICARE MEDICARE A xxxxxxxxxx Medicare B MEDICAID MEDICAID xxxxxxxxx Medicaid OF [place] Advance Directives For more information, please contact: [facility] [address] [place] [address] Date Inactivated Comments Code Status Date Activated [...]
[2018-07-16] MEDS ORDERED: VANCOMYCIN 1GM/NS 250 ML 250 ML IV ONE (14:45)
[2018-07-16] MEDS ORDERED: GENTAMICIN 80MG/NS 100 ML 100 ML IV ONE (14:45)
--- NOTE | 2018-07-16 15:10 | NUR ---
I spoke to Dr Bowles, Dr Selvin Rizvi, and Dr Ellis. Dr Rizvi also wanted Dr Jackson - awaiting call-back from him.
[2018-07-16] MEDS ORDERED: ONDANSETRON HCL INJ 2MG/ML 2ML 2 MG/ML VIAL IV PRN (15:30)
--- NOTE | 2018-07-16 15:43 | NUR ---
I spoke with Dr Jackson
--- OUTSIDE RECORDS SUMMARY | 2018-07-16 16:04 | XMS REPORT | Clinical Summary ---
Author Author JEANNINE [facility] Address Unknown Phone Unavailable Care Team Providers Care Cabin Furnishings Installer Name Role Phone RizviMario horner Evitachhaya PCP [...] by mouth 2 (two) times daily. 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 Crane ,Dr. Bowles, AVF SLE [...] Lot Implanted Type Area Manufactur er 05/25/2017 [id number] / / [id number] Sealr Hemstat Coseal 8ml [id number] - Cement/Freedom N/A: Chest KEENE:MED [id number] ler/Adhesi DEL Implanted: Qty: 1 on 12/27/2016 by Candelario Loyola 01/23/2019 [id number] / / [id number] Patch Vasc [place] 1.65mm 1x6in Graft/Patc N/A: Chest CR [id number] - [id number] BARD:PERIP Implanted: Qty: 1 on 12/27/2016 by HERAL Beau Holt MD 08/26/2020 HVA-L / ID:[id number] / Cryo.Aortic Valve Tissue N/A: Chest LIFENET Implanted: Qty: 1 on 12/27/2016 by Graft/Subs Beau Cross MD titute 04/19/2021 [id number] / PN [id number] / [id number] Patch Periph Vascu-Grd 2x9cm Tissue N/A: Chest SYNOVIS [id number] - Spn [id number] Graft/Subs LIFE Implanted: Qty: 1 on 12/27/2016 by titute TECH:SURG Beau Cross MD INNOV 11/17/2017 [id number]-25A / [id number] / Valve Tiss Trifecta W/Gld 25a Valves N/A: Heart ST ROBI Tfgt-25a - [id number] MED:CARDIA Implanted: Qty: 1 on 03/04/2016 by Beto Grewal MD Explanted: 10/24/2019 [id number] / / [id number] Ring Semiflex 30mm Mounted [id number] Valves N/A: Heart MEDTRONIC: - [id number] STRUCTURAL Implanted: Qty: 1 on 12/27/2016 by [...] AM CDT) Narrative Performed At FINAL REPORT [facility] Ultrasound of the Abdomen, complete Clinical [...] MD Report Verified Date/Time:01/18/2018 14:26:38 Reading Location: [address] Radiology Reading Room Procedure Note Interface, [...] Report Verified Date/Time: 01/18/2018 14:26:38 Reading Location: [address] Radiology Reading Room Performing Organization Address City/State/Zipcode Phone Number GE [email or web address] * XR chest 2 views (01/18/2018 9:39 AM CDT) Narrative Performed At FINAL REPORT [email or web address] Chest, two views HISTORY: Renal transplant evaluation [...] MD Report Verified Date/Time:01/18/2018 09:41:39 Reading Location: [address] Radiology Reading Room Procedure Note Interface, [...] Report Verified Date/Time: 01/18/2018 09:41:39 Reading Location: [address] Radiology Reading Room Performing Organization Address City/State/[facility] Phone Number GE RIS * ECG 12 lead (01/18/2018 8:20 AM CDT) Narrative Performed At Ventricular Rate 86 BPM GE MUSE Atrial Rate 86 BPM P-R Interval 224 ms QRS Duration 144 ms Q-T Interval 428 ms QTC Calculation(Bazett) 512 ms P [place] 43 degrees R [place] -27 degrees T [place] 67 degrees Sinus rhythm with 1st degree [...] 428 ms QTC Calculation(Bazett) 512 ms P [place] 43 degrees R [place] -27 degrees T [place] 67 degrees Sinus rhythm with 1st degree A-V block Right bundle branch block Abnormal ECG When compared with ECG of 10-JAN-2017 05:56, T wave inversion no longer evident in Anterior leads Confirmed by Tony Nunez ([id number]) on 01/18/2018 7:08:33 PM Performing Organization Address City/[facility] Phone Number GE MUSE * HLA TYPING CII (01/18/2018 7:24 AM CDT) HLA-DR AG1 4 [facility] HLA-DR AG2 7 [facility] HLA-DR AG3-1 [facility] HLA-DR AG3-2 [facility] HLA-DR AG4-1 53 [facility] HLA-DR AG4-2 53 [facility] HLA-DR AG5-1 [facility] HLA-DR AG5-2 [facility] HLA-DQA1 AG 1-1 03 [facility] HLA-DQA1 AG 1-2 02 [facility] HLA-DQB1 AG 1-1 8 [facility] HLA-DQB1 AG 1-2 2 [facility] HLA-DPA1 AG 1-1 01 [facility] HLA-DPA1 AG 1-2 01 [facility] HLA-DPB1 AG 1-1 04:01 [facility] HLA-DPB1 AG 1-2 04:02 [facility] HLA-AG Notes [facility] HLA-AG Report Comments [facility] Specimen Blood Narrative Performed At Disclaimer: [facility] This test was developed and its performance characteristics determined by the [facility]. It has not been cleared or [...] complexity clinical laboratory testing. Performing Organization Address City/[facility] Phone Number [facility] ONE [address], MS: [id number], [place] [address] CLIA#[id number] CAP#[id number] UNOS#[id number] * HLA TYPING CI (01/18/2018 7:24 AM CDT) HLA-A AG1 2 [facility] HLA-A AG2 3 [facility] HLA-B AG1 48 [facility] HLA-B AG2 51 [facility] HLA-C AG1 8 [facility] HLA-C AG2 16 [facility] HLA-B BW1 6 [facility] HLA-B BW2 4 [facility] HLA-AG Notes [facility] HLA-AG Report Comments [facility] Specimen Blood Narrative Performed At Disclaimer: [facility] This test was developed and its performance characteristics determined by the [facility]. It has not been cleared or [...] complexity clinical laboratory testing. Performing Organization Address City/[facility] Phone Number [facility] ONE [address] [place], MS: [id number], [place] [address] CLIA#[id number] CAP#[id number] UNOS#[id number] * FLOW PRA CLASS II WITH REFLEX TO ANTIBODY SPECIFICITY (01/18/2018 7:24 AM CDT) Flow Class II Percent 85 [facility] Positive Flow Class Report [facility] Comments Specimen Blood Narrative Performed At Disclaimer: [facility] This test was developed and its performance characteristics determined by the [facility]. It has not been cleared or [...] complexity clinical laboratory testing. Performing Organization Address City/[facility] Phone Number [facility] ONE [address] [place], MS: [id number], [place] [address] CLIA#[id number] CAP#[id number] UNOS#[id number] * FLOW PRA CLASS I WITH REFLEX TO ANTIBODY SPECIFICITY (01/18/2018 7:24 AM CDT) Flow Class I Percent 92 [facility] Positive Flow Class Report [facility] Comments Specimen Blood Narrative Performed At Disclaimer: [facility] This test was developed and its performance characteristics determined by the [facility]. It has not been cleared or [...] complexity clinical laboratory testing. Performing Organization Address City/[facility] Phone Number [facility] ONE Omar [place], MS: [id number], [place] [address] CLIA#[id number] CAP#[id number] UNOS#[id number] * AB SPECIFICITY CLASS II (01/18/2018 7:24 AM CDT) AB Specificity Class II DR:8 11 12 13 14 17 18 [facility] DRw:52 DQ:7 DQA:05:05 05:01 05:03 06:01 DP:1 3 5 6 9 10 11 13 14 17 19 20 DPA:02:01 02:02 03:01 AB Specificity Titr Class MFIs > 4000 [facility] Report Specimen Blood Narrative Performed At Disclaimer: [facility] This test was developed and its performance characteristics determined by the [facility]. It has not been cleared or [...] complexity clinical laboratory testing. Performing Organization Address City/State/[facility] Phone Number [facility] ONE Omar [place], MS: [id number], [place] [id number] CLIA#[id number] CAP#[id number] UNOS#[id number] * AB SPECIFICITY CLASS I (01/18/2018 7:24 AM CDT) AB Specificity Class I A:1 11 23 24:02 25 26 29 34 36 [facility] 43 66:01 80 B:8 13 18 27:05 37 41 44 45 47 49 50 59 60 61 73 76 82 Cw:4 5 6 7 18 AB Specificity Titr Class MFIs > 4000 [facility] Report Specimen Blood Narrative Performed At Disclaimer: [facility] This test was developed and its performance characteristics determined by the [facility]. It has not been cleared or [...] complexity clinical laboratory testing. Performing Organization Address City/State/[facility] Phone Number [facility] ONE Omar [place], MS: [id number], [place] [address] CLIA#[id number] CAP#[id number] UNOS#[id number] * T Spot TB (01/18/2018 7:24 [...] Address City/State/Zipcode Phone Number [facility] [address] [place] [address] LABORATORIES 100 * PT/aPTT (01/18/2018 7:24 AM CDT) Protime 16.6 (H) 11.7 - 14.7 seconds [facility] INR 1.3 <=5.9 [facility] PTT 62.5 (H) 22.5 - 36.0 seconds [facility] Specimen Blood Narrative Performed At RECOMMENDED COUMADIN/WARFARIN INR THERAPY RANGES [facility] STANDARD DOSE: 2.0 - 3.0 Includes: PROPHYLAXIS for venous thrombosis, [facility] systemic embolization; TREATMENT for venous thrombosis and/or pulmonary embolus. HIGH RISK: Target INR is 2.5-3.5 for patients with mechanical heart valves. Performing Organization Address City/State/Zipcode Phone Number [address] [address] [facility] * HIV-1 Antigen with HIV-1/2 Antibody (01/18/2018 7:24 AM CDT) HIV-1 Antigen with HIV NON-REACTIVE Nonreactive [facility] 1&2 Antibody [facility] Specimen Blood Performing Organization Address City/[facility] Phone Number [address] [address] [facility] * 1:1 MIXING STUDY, NON-INCUBATED (01/18/2018 7:24 AM CDT) Protime 16.0 (H) 11.7 - 14.7 seconds [facility] PTT 55.3 (H) 22.5 - 36.0 seconds [facility] PT 06/26 Mix 14.6 11.7 - 14.7 SECS [facility] PTT 1 Mix 37.2 (H) 22.5 - 36.0 SECS [facility] Specimen Blood Performing Organization Address City/[facility]/Zipcode Phone Number [place] [id number] [place] [address] [phone] [place] [address] * CBC with platelet count + automated diff (01/18/2018 7:24 AM CDT) WBC 9.6 3.5 - 10.5 K/L [facility] RBC 4.35 (L) 4.63 - 6.08 M/L [facility] Hemoglobin 12.1 (L) 13.7 - 17.5 GM/DL [facility] Hematocrit 39.5 (L) 40.1 - 51.0 % [facility] MCV 90.8 79.0 - 92.2 fL [facility] MCH 27.8 25.7 - 32.2 pg [facility] MCHC 30.6 (L) 32.3 - 36.5 GM/DL [facility] RDW 16.0 (H) 11.6 - 14.4 % [facility] Platelets 252 150 - 450 K/CU MM [facility] MPV 9.5 9.4 - 12.4 fL [facility] nRBC 0 0 - 0 /100 WBC [facility] % Neutros 70 % [facility] % Lymphs 16 % [facility] % Monos 9 % [facility] % Eos 4 % [facility] % Baso 0 % [facility] # Neutros 6.69 (H) 1.78 - 5.38 K/L [facility] # Lymphs 1.53 1.32 - 3.57 K/L [facility] # Monos 0.88 (H) 0.30 - 0.82 K/L [facility] # Eos 0.40 0.04 - 0.54 K/L [facility] # Baso 0.04 0.01 - 0.08 K/L [facility] Immature 1 0 - 1 % [facility] Granulocytes-Relative [facility] Specimen Blood Performing Organization Address City/[facility]/Zipcode Phone Number [address] * Hepatitis C Antibody (01/18/2018 7:24 AM CDT) Hepatitis C Ab NON-REACTIVE Nonreactive [facility] Specimen Blood Performing Organization Address City/State/Zipcode Phone Number [address] * Cytomegalovirus antibody, IgM (01/18/2018 7:24 AM CDT) CMV IGM Negative Negative, Equivocal [facility] Specimen Blood Narrative Performed At CMV IgM Result Interpretation: [facility] </=0.8 Al Negative [facility] 0.9-1.0 Al Equivocal >/=1.1 Al Positive Performing Organization Address City/[facility] Phone Number [address] * Double-Stranded DNA (dsDNA) Antibody (01/18/2018 7:24 AM CDT) ds DNA Ab Negative [facility] Specimen Blood Performing Organization Address City/[facility] Phone Number [address] * Hepatitis B core antibody, IgM (01/18/2018 7:24 AM CDT) Hep B C IgM NON-REACTIVE Nonreactive [facility] Specimen Blood Performing Organization Address City/[facility] Phone Number [address] * EBV-VCA antibody, IgM (01/18/2018 7:24 AM CDT) [place]ER [place] VIRAL CAPSID Negative Negative, Equivocal [facility] ANTIGEN IGM [facility] Specimen Blood Narrative Performed At Omer Pendleton Viral Capsid Antigen IgM Result Interpretation: [facility] </=0.8 Al Negative [facility] 0.9-1.0 Al Equivocal >/=1.1 Al Positive Performing Organization Address City/[facility] Phone Number [address] * EBV-VCA antibody, IgG (01/18/2018 7:24 AM CDT) OMER [place] VIRAL CAPSID Positive (A) Negative, Equivocal [facility] ANTIGEN IGG [facility] Specimen Blood Narrative Performed At Omer [place]end[place] Viral Capsid Antigen IgG Result Interpretation: [facility] </=0.8 Al Negative [facility] 0.9-1.0 Al Equivocal >/=1.1 Al Positive Performing Organization Address City/[facility] Phone Number [address] * Blood typing, automated (01/18/2018 7:24 AM CDT) ABO/RH AUTOMATED (BEAKER) O POSITIVE [facility] Specimen Blood Performing Organization Address City/[facility] Phone Number [address] * RPR (01/18/2018 7:24 AM CDT) RPR Nonreactive Nonreactive [facility] Specimen Blood Performing Organization Address City/[facility] Phone Number [address] * Hepatitis B surface antibody (01/18/2018 7:24 AM CDT) Hep B S Ab <8.0 <8.0 mIU/mL [facility] Specimen Blood Performing Organization Address City/[facility] Phone Number [address] * Hepatitis B surface antigen (01/18/2018 7:24 AM CDT) hepatitis B Surface Ag NON-REACTIVE Nonreactive [facility] Specimen Blood Performing Organization Address [facility] Phone Number [address] * Cytomegalovirus antibody, IgG (01/18/2018 7:24 AM CDT) CYTOMEGALOVIRUS, IGG Positive (A) Negative, Equivocal [facility] Specimen Blood Narrative Performed At CMV IgG Result Interpretation: [facility] </=0.8 Al Negative [facility] 0.9-1.0 Al Equivocal >/=1.1 AlPositive Performing Organization Address [facility] Phone Number [address] * Cardiolipin Antibodies, IgG and IgM (01/18/2018 7:24 AM CDT) Anticardiolipin IgG 3.3 <20.0 GPL [facility] Anticardiolipin IgM 0.9 <20.0 MPL [facility] Specimen Blood Narrative Performed At Anticardiolipin IgG Result Interpretation: [facility] <20.0 GPL Normal [facility] >/=20.0 GPL Positive Anticardiolipin IgM Result Interpretation: <20.0 MPL Normal >/=20.0 MPL Positive Performing Organization Address [facility] Phone Number [address] * Direct AHG (KOREY)/Direct Ciara (01/18/2018 7:24 AM CDT) Direct AHG-IGG NEGATIVE [facility] Direct AHG-C3B, C3D NEGATVIE [facility] Specimen Blood Performing Organization Address [facility] Phone Number [place] [address] [place] [address] * Varicella Zoster Antibody, IgG (01/18/2018 7:24 AM CDT) Varicella IgG >8.0 [facility] Specimen Blood Narrative Performed At VARICELLA ZOSTER RESULT INTERPRETATIONS: [facility] <=0.8 AlNonreactive:Presumed non-immune to VZV [facility] 0.9-1.0 AlEquivocal >=1.1 AlReactive:Presumed immune to VZV Performing Organization Address City/[facility] Phone Number [address] * Complement Component C3 (01/18/2018 7:24 AM CDT) C3 Complement 190 82 - 193 mg/dL [facility] Specimen Blood Performing Organization Address [facility] Phone Number [address] * Complement Component C4 (01/18/2018 7:24 AM CDT) C4 Complement 34 15 - 57 mg/dL [facility] Specimen Blood Performing Organization Address [facility] Phone Number [address] * Uric Acid (01/18/2018 7:24 AM CDT) Uric Acid 3.8 2.6 - 7.2 mg/dL [facility] Specimen Blood Performing Organization Address [facility] Phone Number [address] * Phosphorus (01/18/2018 7:24 AM CDT) Phosphorus 5.4 (H) 2.3 - 4.7 mg/dL [facility] Specimen Blood Performing Organization Address [facility] Phone Number [address] * PTH, Intact (01/18/2018 7:24 AM CDT) PTH 753.2 (H) 8.5 - 72.5 pg/mL [facility] Specimen Blood Performing Organization Address City/[facility]/Zipcode Phone Number [address] * Lactate Dehydrogenase (LDH) (01/18/2018 7:24 AM CDT) LDH 211 125 - 220 U/L [facility] Specimen Blood Performing Organization Address City/[facility] Phone Number [address] * Hemoglobin A1c (01/18/2018 7:24 AM CDT) Hemoglobin A1C 5.3 4.3 - 6.1 % [facility] Specimen Blood Performing Organization Address City/[facility] Phone Number [address] * Gamma Glutamyl Transferase (GGT) (01/18/2018 7:24 AM CDT) GGT 56 9 - 64 U/L [facility] Specimen Blood Performing Organization Address City/[facility] Phone Number [address] * Lipid panel (01/18/2018 7:24 AM CDT) Triglycerides 76 mg/dL [facility] Cholesterol 128 mg/dL [facility] HDL 41 mg/dL [facility] LDL Calculated 72 mg/dL [facility] Specimen Blood Narrative Performed At Triglyceride Reference Range: [facility] Low Risk <150 [facility] [id number] High Risk 200-499 Very High Risk>=500 Cholesterol Reference Range: Low Risk <200 [id number] High Risk>240 HDL Cholesterol Reference Range: Low Risk >=60 High Risk <40 LDL Cholesterol Reference Range: Optimal<100 Near [id number] Pnvktyyyah382-574 Bgrq572-119 Very High >=190 Performing Organization Address City/[facility]/Zipcode Phone Number [facility] [address] [place] [address] [facility] * Comprehensive metabolic panel (01/18/2018 7:24 AM CDT) Protein, Total 10.0 (H) 6.0 - 8.3 gm/dL [facility] Albumin 4.6 3.5 - 5.0 g/dL [facility] Alkaline Phosphatase 303 (H) 40 - 150 U/L [facility] Total Bilirubin 0.6 0.2 - 1.2 mg/dL [facility] Sodium 136 136 - 145 meq/L [facility] Potassium 4.0 3.5 - 5.1 meq/L [facility] Chloride 90 (L) 98 - 107 meq/L [facility] CO2 30 (H) 22 - 29 meq/L [facility] BUN 23 (H) 7 - 21 mg/dL [facility] Creatinine 7.23 (H) 0.57 - 1.25 mg/dL [facility] Glucose 87 70 - 105 mg/dL [facility] Calcium 10.2 8.4 - 10.2 mg/dL [facility] AST 16 5 - 34 U/L [facility] ALT 15 6 - 55 U/L [facility] EGFR 9Comment: ESTIMATED GFR IS NOT mL/min/1.73 sq m [facility] ACCURATE CREATININE [facility] CLEARANCE IN PREDICTING GLOMERULAR FILTRATION RATE. ESTIMATED GFR IS NOT APPLICABLE FOR DIALYSIS PATIENTS. Specimen Blood Performing Organization Address City/[facility]/Zipcode Phone Number [facility] [address] [place] [address] [facility] * Type and Screen, Automated (12/26/2017 10:48 AM CDT) ABO/RH AUTOMATED (BEAKER) O POSITIVE [facility] Ab Scrn NEGATIVE [facility] Specimen Blood Performing Organization Address City/State/Zipcode Phone Number [facility] [address] [place] [address] [facility] after 07/15/2017 Insurance Payer Benefit Subscriber ID Type Phone Address Plan / Group MEDICARE MEDICARE A xxxxxxxxxx Medicare B MEDICAID MEDICAID xxxxxxxxx Medicaid [place] Advance Directives For more information, please contact: [facility] [address] [place] [address] Date Inactivated Comments Code Status Date Activated [...]
--- NOTE | 2018-07-16 16:45 | NUR ---
NURSE FOR 89 UNABLE TO TAKE REPORT
[2018-07-16] MEDS ORDERED: ACETAMINOPHEN 325 MG TAB PO PRN (17:00)
--- NOTE | 2018-07-16 17:00 | NUR ---
NURSE FOR 89 UNABLE TO TAKE REPORT
--- NOTE | 2018-07-16 17:35 | NUR ---
NURSE UNAVAILABLE FOR REPORT
--- NOTE | 2018-07-16 18:54 | NUR ---
PATIENT CARE AND REPORT ENDORSED TO [facility]
[2018-07-16] MEDS ORDERED: IBUPROFEN 600 MG TAB ONE (19:36)
[2018-07-16] MEDS ORDERED: IBUPROFEN 600 MG TAB PO ONE (19:45)
[2018-07-16] MEDS ORDERED: IBUPROFEN 600 MG TAB PO PRN (19:45)
--- NOTE | 2018-07-16 19:48 | NUR ---
REPORT CALLED TO ZENON COKER. PT TRANSPORTED TO FLOOR BY EMT [place].
[2018-07-16 20:09] VITALS: BP 133/95
[2018-07-16 20:13] VITALS: BP 133/95
[2018-07-16 20:16] VITALS: BP 143/80
--- NOTE | 2018-07-16 20:45 | History and Physical ---
He is a 33-year-old male patient of mine, presented to the emergency room from the dialysis center as the patient was having fever and chills. HISTORY OF PRESENT ILLNESS: Mr. Rm Wade is a 33-year-old male patient with end-stage renal disease because of the lupus nephritis and history of endocarditis and prosthetic heart valve and abdominal fistula, presented to the emergency room as the patient was having fever with chills. The patient was seen in the ER last night with same symptoms, and sent home with blood test being negative. Again, the patient continued to have recurrent chills with the fever. The patient was sent to the ER from the dialysis center. PAST MEDICAL HISTORY: Hypertension, hyperlipidemia, lupus nephritis, GERD and previous CVA. PAST SURGICAL HISTORY: Prosthetic heart valve, cholecystectomy, appendectomy, redo valve and left arm AV fistula. ALLERGIES: NO KNOWN DRUG ALLERGIES. MEDICATIONS: See from the list. FAMILY HISTORY: Hypertension, hyperlipidemia. PHYSICAL EXAMINATION GENERAL: He is a middle-aged male patient, lying in bed. He is tachycardiac and tachypneic. VITAL SIGNS: His heart rate is 120, blood pressure 170/90, temperature 98.5. The patient has intermittent spike of the temperature. Respiratory rate 16. HEENT: Normocephalic, atraumatic. NECK: No JVD. No lymphadenopathy. LUNGS: Diminishing bilateral air entry. No rales, no rhonchi. HEART: S1, S2 irregularly irregular. Systolic murmur is present. ABDOMEN: Soft. Bowel sounds present. NEUROLOGICAL: No focal neurological deficit. ADMITTING IMPRESSION AND DIAGNOSIS: Afebrile patient with leukopenia in an immunocompromised patient with previous history of endocarditis and prosthetic valve. Sepsis is very high likely and/or bacteremia. PLAN: The patient will be admitted with the above diagnosis. We will treat the patient with vancomycin. Will do obtain blood cultures and will obtain ID consultation, cardiology consultation and nephrology consultation. Job#: [id number] JOAQUIN
[2018-07-17] VITALS (7 sets, daily range): BP systolic 109–132; BP diastolic 60–78
[2018-07-17 06:17] LABS: BASOPHILS % 0.3 % (0.0-1.0); EOSINOPHILS # (AUTO) 0.2 (0.0-0.4); EOSINOPHILS % 1.9 % (0.0-6.0); HEMATOCRIT 32.8 % (38.2-49.6); HEMOGLOBIN 10.8 g/dL (14.0-18.0); LYMPHOCYTES # (AUTO) 1.7 (1.0-3.2); LYMPHOCYTES % 19.1 % (18.0-39.1); MEAN CORPUSCULAR HEMOGLOBIN 31.7 pg (28-32); MEAN CORPUSCULAR HGB CONC 32.9 g/dL (31-35); MEAN CORPUSCULAR VOLUME 96.2 fL (81-99); MONOCYTES # (AUTO) 1.5 (0.2-0.8); NEUTROPHILS # (AUTO) 5.6 (2.1-6.9); NEUTROPHILS % 62.1 % (38.7-80.0); PLATELET COUNT 144 x10e3/uL (140-360); RED BLOOD COUNT 3.41 x10e6/uL (4.3-5.7); RED CELL DISTRIBUTION WIDTH 14.4 % (11.7-14.4)
[2018-07-17 06:38] LABS: ALBUMIN 3.1 g/dL (3.5-5.0); ALBUMIN/GLOBULIN RATIO 0.8 (0.8-2.0); ANION GAP 18.5 mmol/L (8-16); CALCIUM 8.1 mg/dL (8.4-10.2); CREATININE, SERUM 10.35 mg/dL (0.72-1.25); POTASSIUM 4.5 mmol/L (3.5-5.1)
--- NOTE | 2018-07-17 07:00 | NUR ---
Report received patient is awake and alert x3 in NAD. POC discussed. Patient instructed to call for assistance as needed and verbalized understanding. Call hong within reach.
--- NOTE | 2018-07-17 08:30 | NUR ---
DR. YUEN AT THE BEDSIDE MAKING ROUNDS.
[2018-07-17] MEDS: PANTOPRAZOLE SOD 40 MG TABEC PO SCH (08:38)
[2018-07-17] MEDS: LABETALOL HCL 200 MG TAB PO SCH ×2 (08:38→17:00)
[2018-07-17] MEDS: FOLIC ACID 1 MG TAB PO SCH (08:38)
[2018-07-17] MEDS: SUCRALFATE 1 GM TAB PO SCH ×2 (08:38→17:07)
[2018-07-17] MEDS ORDERED: GEMFIBROZIL 600 MG TAB PO SCH (09:00)
--- NOTE | 2018-07-17 09:15 | NUR ---
Dr. Rizvi at the bedside making rounds.
--- NOTE | 2018-07-17 10:19 | Consultation ---
DATE OF CONSULTATION: July 16, 2018 CARDIOLOGY CONSULTATION REASON FOR CONSULTATION: Fever. REFERRING PHYSICIAN: Dr. Cassidy HPI: This is a pleasant, but unfortunate, 33-year-old male that presented with fever. According to the patient, last week during dialysis he was having fever and chills. He came to the emergency room and had some blood work done, and he was sent home. He stated at dialysis again this week he started having fever and chills and was told by the dialysis doctor to come to the emergency room for further evaluation. He has a history of aortic and tricuspid valve replacement in the past and also history of endocarditis. He denied any palpitations, any shortness of breath, any headache, any nausea or vomiting. PAST MEDICAL HISTORY: Endocarditis, hypertension, hyperlipidemia, lupus, GERD, stroke, aortic stenosis, tricuspid regurgitation, anemia, end-stage renal disease on dialysis, pneumonia, gastritis, ARDS and pneumonia. PAST SURGICAL HISTORY: Cholecystectomy, appendectomy, aortic valve and tricuspid valve replacement with pig valve, and left arm AV fistula. FAMILY HISTORY: Positive for hypertension. SOCIAL HISTORY: No smoking. No drinking. MEDICATIONS: See med list. ALLERGIES: HE IS NOT ALLERGIC TO ANY MEDICATION. REVIEW OF SYSTEMS: Negative, except for those mentioned above. He is positive with fever and history of endocarditis. PHYSICAL EXAMINATION VITAL SIGNS: Temperature 98, heart rate 80, blood pressure 124/73, respirations 20, oxygen saturation 100% on room air. GENERAL: He is awake, alert and oriented x3. HEENT: Mucous membranes are moist. NECK: Supple. LUNGS: Bilaterally clear to auscultation. CARDIOVASCULAR: S1 and S2 present with 2 to 3 grade murmur. ABDOMEN: Soft. NEUROLOGIC: Intact. EXTREMITIES: No edema. LABS: Sodium 135, potassium 4.5, chloride 96, CO2 25, BUN 56, creatinine 10.35, glucose 84. White blood cells 9.07, hemoglobin 10.4, hematocrit 32.8, platelets 144. IMPRESSION 1. Fever. 2. History of endocarditis. 3. History of aortic valve replacement. 4. History of tricuspid valve ring. 5. Hypertension. 6. End-stage renal disease on dialysis. 7. Lupus. 8. Obesity. 9. History of cerebrovascular accident. ASSESSMENT AND PLAN 1. He is pending blood culture results. 2. We will go ahead and get an echocardiogram to reassess the LV and valve function. 3. Continue antibiotic. 4. Continue home medications. 5. Further cardiac workup pending clinical course. Thank you for this consultation. Dictated by Papito Grimes NP Job#: [id number] MH NEHAL
--- NOTE | 2018-07-17 10:35 | NUR ---
Spoke to WAI Negron rounding for Dr. Jackson regarding consult and no antibiotics ordered except the one time dose given in OR. He will discuss with Dr. Jackson.
--- NOTE | 2018-07-17 11:30 | NUR ---
HENRY EXPLAINED, SIGNED AND ON CHART COPY TO PT PT LIVES WITH HIS MOTHER IN A HOUSE IN [place] PT IS DISABLED DUE TO MENTAL RETARDATION HAS A WHEELCHAIR AT HOME FROM PREVIOUS SURGERY BUT DOES NOT USE IT HX OF 2 HEART VALVE REPLACEMENTS, ENDOCARDITIS AND LUPUS GAVE PT'S MOTHER MY CARD FOR QUESTIONS/CONCERNS PUT MY NAME AND NUMBER ON THE BOARD IN ROOM
--- NOTE | 2018-07-17 13:15 | Consultation ---
DATE OF CONSULTATION: July 17, 2018 Mr. Rm Wade is well known to me. Prior history of lupus, end-stage renal disease, prosthetic aortic valve repair. He developed fever, unclear etiology. Subsequently sent here to the hospital for workup to rule out endocarditis. He has a prior history of endocarditis. Currently awake and alert. Could not finish his treatment yesterday. At the moment, he denies fever, chills or headache. Family by bedside. ALLERGIES: NO APPARENT DRUG ALLERGIES. LABS: White count 9, hemoglobin 10.8. Potassium 4.5. Creatinine elevated at 10.3. CURRENT MEDICATIONS: Please see orders. On Carafate 1 gram p.o. b.i.d., pantoprazole 40 mg daily, labetalol 200 mg b.i.d. He received ibuprofen 1 time. Folic acid 1 mg daily. He is on gemfibrozil, which I am going to stop. He received 1 dose of vancomycin and 1 dose of gentamicin. Tylenol p.r.n. SOCIAL HISTORY: Does not smoke or drink. FAMILY HISTORY: Significant for hypertension. PHYSICAL EXAMINATION GENERAL: Awake, alert, lying supine in no apparent distress. VITALS: Blood pressure 124/73, pulse rate 80, afebrile, oxygen saturation 97% on room air. HEAD AND NECK: Corneas clear. Oral mucosa is moist. Neck veins are flat. LUNGS: Occasional rales bibasilar. HEART: S1, S2 audible. Soft 2/6 to 3/6 ejection systolic murmur heard over left sternal border. ABDOMEN: Otherwise soft and nontender. LOWER EXTREMITIES: No edema. IMPRESSION AND PLAN: Fever in a gentleman with underlying history of lupus and endocarditis in the past. Will start erythropoietin, phosphorus binders and protein supplementation. Discontinue gemfibrozil. Spoke with the dialysis nurse and talked with the patient. Will do a dialysis treatment today. Please see orders. Job#: [id number]
--- NOTE | 2018-07-17 13:55 | NUR ---
Nutrition Screen Note RD Recommendation for Physician: -Continue renal diet as ordered Plan of Care: RD following, monitoring for tolerance and adequacy Nutrition reason for involvement: Diagnosis ESRD Primary Diagnose(s): fever PMH: Endocarditis, hypertension, hyperlipidemia, lupus, GERD, stroke, aortic stenosis, tricuspid regurgitation, anemia, end-stage renal disease on dialysis, pneumonia, gastritis, ARDS and pneumonia. Ht: 75in Wt: 226lb BMI: 28.2kg/m2 IBW: 196lb RD Assessment: (07/17/18) Chart reviewed. Labs and meds reviewed. 33yo M, who is admitted for fever and chills. Visited pt in the room. 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 Pt reports having good appetite with 100% recorded meal intake since admission. No GI complains noted. LBM 07/16, normal per pt. Pt denies any chewing or swallowing issue. Pt has been followed by RD at [facility] for over a year. Will continue to monitor and follow. Current Diet: renal diet Malnutrition Evaluation (07/17/2018) The patient does not meet criteria for a specified degree of malnutrition at this time. Will re-evaluate at follow-up as appropriate. Diet Education Needs Assessment: Diet education not indicated. - Pt has been followed by RD at [facility] for over a year. Nutrition Care Level: low Signed: Kiki Jones MS, RD, LD
--- NOTE | 2018-07-17 14:10 | NUR ---
Visit made by the Spiritual Care Department Pastoral Visitor, Maria Del Carmen Gaston. PV provided pastoral presence, hospitality, and supportive listening. Pastoral Visitor informed pt/family of the scope of [employer] and availability. SALVATORE GARCES It Web Development Consultant Spiritual Care Department O: [phone] Pager: [phone] ([phone] number calling from)
--- NOTE | 2018-07-17 15:30 | NUR ---
Dr. Jackson called to clarify antibiotic orders
--- NOTE | 2018-07-17 16:42 | NUR ---
Dr. Jackson called and said "don't worry, I'm on my way to see him." No new orders at this time.
[2018-07-17] MEDS: SEVELAMER CARBONATE 800 MG TAB PO SCH (17:07)
--- NOTE | 2018-07-17 17:20 | NUR ---
Dr. Jackson at the bedside. Patient without any complaints.
[2018-07-17] MEDS ORDERED: GENTAMICIN 60MG/NS 50ML 50 ML IV PRN (17:30)
[2018-07-17] MEDS ORDERED: VANCOMYCIN 1GM/NS 250 ML 250 ML IV SCH (17:30)
--- NOTE | 2018-07-17 21:02 | Consultation ---
DATE OF CONSULTATION: REASON FOR CONSULTATION: Fever and chills. HISTORY: This patient who is very pleasant 33-year-old male with history of end-stage renal disease, on hemodialysis. He has history of lupus nephritis, history of endocarditis and prosthetic aortic valve, history of abdominal fistula, comes in the emergency room with fever and chills. He said the fevers were started on dialysis. It has been going on for last couple of days. Came to the emergency room. I have discussed the case yesterday with emergency room physician, started on vancomycin and gentamicin. The patient was admitted in the hospital. The patient is currently lying in bed comfortably. He stated he is feeling much better now. PAST MEDICAL HISTORY: Hypertension, hyperlipidemia, lupus nephritis, GERD, CVA, aortic valve replacement, cholecystectomy, appendectomy, AV arm fistula. ALLERGIES: NKA. SOCIAL HISTORY: There is no smoking, drug abuse, alcohol abuse. FAMILY HISTORY: Otherwise unremarkable. REVIEW OF SYSTEMS: At the present time: HEENT: Negative. PULMONARY: Negative. CARDIAC: Negative. : Negative. GI: Negative. SKIN: Negative. There are no rashes. JOINTS: Negative. GENERAL: He is feeling good. At the present time, there are no fevers, no chills. All other systems within normal limits. His past medical history is as mentioned above. Past surgical history also above. He had history of aortic valve and tricuspid valve replacement with pig valve and cholecystectomy. LABORATORY DATA: Reviewed. Blood cultures from July 15 are still pending. PHYSICAL EXAMINATION: GENERAL: He is currently alert and oriented, does not seem to be in acute distress. VITAL SIGNS: Stable, currently afebrile. HEENT: He does not appear icteric. NECK: Supple. CHEST: Clear. HEART: No murmur. ABDOMEN: Soft. Bowel sounds present. No tenderness. EXTREMITIES: No edema. SKIN: There is no rash. IMPRESSION: 1. Fever and chills. Concern about bacteremia, concern about endocarditis since patient had aortic valve replacement. Agree with blood cultures. Obtain prior to antibiotic. Will put him on vancomycin and gentamicin, vancomycin 1 g IV piggyback after each hemodialysis, gentamicin 60 mg IV piggyback after each hemodialysis. Further recommendations depending on the blood cultures. 2. End-stage renal disease. 3. History of lupus. Will follow with you. Thank you for asking me to see this patient. Job#: [id number]
[2018-07-18] VITALS (8 sets, daily range): BP systolic 121–142; BP diastolic 58–80
[2018-07-18] MEDS ORDERED: SODIUM CHLORIDE 0.9% 250ML 250 ML ONE (01:20)
[2018-07-18 05:36] LABS: BASOPHILS % 0.4 % (0.0-1.0); EOSINOPHILS # (AUTO) 0.1 (0.0-0.4); EOSINOPHILS % 1.3 % (0.0-6.0); HEMATOCRIT 33.6 % (38.2-49.6); HEMOGLOBIN 11.1 g/dL (14.0-18.0); LYMPHOCYTES # (AUTO) 1.5 (1.0-3.2); LYMPHOCYTES % 18.2 % (18.0-39.1); MEAN CORPUSCULAR HEMOGLOBIN 31.4 pg (28-32); MEAN CORPUSCULAR VOLUME 95.2 fL (81-99); MONOCYTES % 12.6 % (4.4-11.3); NEUTROPHILS # (AUTO) 5.5 (2.1-6.9); NEUTROPHILS % 67.3 % (38.7-80.0); PLATELET COUNT 167 x10e3/uL (140-360); RED BLOOD COUNT 3.53 x10e6/uL (4.3-5.7); RED CELL DISTRIBUTION WIDTH 14.2 % (11.7-14.4)
[2018-07-18] MEDS: VANCOMYCIN 1GM/NS 250 ML 250 ML IV SCH (06:47)
--- NOTE | 2018-07-18 07:00 | NUR ---
rounded with table games shift manager nurse, patient aware of change. Resting in bed and in no distress. Call hong within reach.
[2018-07-18] MEDS: SEVELAMER CARBONATE 800 MG TAB PO SCH ×3 (09:08→17:30)
[2018-07-18] MEDS: LABETALOL HCL 200 MG TAB PO SCH ×2 (09:08→17:30)
[2018-07-18] MEDS: PANTOPRAZOLE SOD 40 MG TABEC PO SCH (09:08)
[2018-07-18] MEDS: FOLIC ACID 1 MG TAB PO SCH (09:08)
[2018-07-18] MEDS: SUCRALFATE 1 GM TAB PO SCH ×2 (09:08→17:30)
--- NOTE | 2018-07-18 19:05 | NUR ---
rounded with production shift supervisor nurse, patient aware of change. Call hong within reach
[2018-07-19] VITALS (9 sets, daily range): BP systolic 104–142; BP diastolic 62–79
--- NOTE | 2018-07-19 06:45 | NUR ---
rounded with cage shift manager nurse, patient resting in bed. Call hong within reach and bed in lowest position.
[2018-07-19] MEDS: SEVELAMER CARBONATE 800 MG TAB PO SCH ×3 (08:00→18:44)
[2018-07-19] MEDS: SUCRALFATE 1 GM TAB PO SCH ×2 (09:00→18:44)
[2018-07-19] MEDS: LABETALOL HCL 200 MG TAB PO SCH ×2 (09:00→17:00)
[2018-07-19] MEDS: FOLIC ACID 1 MG TAB PO SCH (09:00)
[2018-07-19] MEDS: PANTOPRAZOLE SOD 40 MG TABEC PO SCH (09:00)
--- NOTE | 2018-07-19 10:36 | NUR ---
EDUCATED ABOUT IMM, SIGNED, FILED IN CHART, WITH COPY LEFT WITH FAMILY AT BEDSIDE.
[2018-07-19] MEDS ORDERED: SODIUM CHLORIDE 0.9% 1000ML 1,000 ML ONE ×2 (13:45→15:58)
[2018-07-19] MEDS ORDERED: BENZOCAINE 20% SPR 60 ML CAN ONE (13:45)
--- NOTE | 2018-07-19 13:46 | NUR ---
patient leaving floor for procedure on hospital bed. patient alert and oriented and in stable condition.
--- NOTE | 2018-07-19 14:29 | NUR ---
report given to Patsy for patient transfer. Patient remains in procedure.
--- NOTE | 2018-07-19 15:01 | NUR ---
Recvd patient in bed from prestressed concrete laborer after BEAU done, AAOx3, on NPO, denies any pain, no distress noted, family at bed side, call light in reach, keep monitoring.
[2018-07-19] MEDS ORDERED: SODIUM CHLORIDE 0.9% 1000ML 2,000 ML IV PRN (16:00)
[2018-07-19] MEDS ORDERED: PROPOFOL IV EMULSION 10 MG/ML 20 ML VIAL ONE (17:35)
--- NOTE | 2018-07-19 20:42 | NUR ---
RECEIVED PT IN BED AOX3 .PT IS GETTING DIALYSIS.NO ACUTE DISTRESS NOTED .CALL LIGHT WITH IN REACH .CONTINUE TO MONITOR
[2018-07-19] MEDS: VANCOMYCIN 1GM/NS 250 ML 250 ML IV SCH (23:45)
[2018-07-20] VITALS: BP 120/63
[2018-07-20 04:00] VITALS: BP 123/69
--- NOTE | 2018-07-20 05:08 | NUR ---
PT HAD DIALYSIS ON 07/19/18 .GIVEN VANCOMYCIN AFTER DIALYSIS
[2018-07-20 06:38] VITALS: BP 123/69
--- NOTE | 2018-07-20 07:10 | NUR ---
RCD PT AT BED PT IS ALERT AND ORIENTED PT RESTING ON BED NO SIGNS OF ANY DISTRESS NOTED IV PATENT BED LOW AND LOCKED CALL LIGHT IN REACH
--- NOTE | 2018-07-20 07:26 | NUR ---
PT RESTING DENIES PAIN .CALL SANDOVAL WITH IN REACH .CONTINUE TO MONITOR
[2018-07-20] MEDS: SEVELAMER CARBONATE 800 MG TAB PO SCH ×2 (08:00→11:51)
[2018-07-20 08:54] VITALS: BP 133/79
[2018-07-20] MEDS: FOLIC ACID 1 MG TAB PO SCH (09:00)
[2018-07-20] MEDS: SUCRALFATE 1 GM TAB PO SCH (09:00)
[2018-07-20] MEDS: LABETALOL HCL 200 MG TAB PO SCH (09:00)
[2018-07-20] MEDS: PANTOPRAZOLE SOD 40 MG TABEC PO SCH (09:00)
--- NOTE | 2018-07-20 09:26 | NUR ---
CM SPOKE TO PATIENT AT BEDSIDE REGARDING IMM LETTER. IMM LETTER GIVEN WITH EXPLANATION. ORIGINAL SIGNED AND PLACED IN CHART; COPY OF ORIGINAL DOCUMENT GIVEN TO PATIENT AT BEDSIDE AND PLACED IN CARE TRANSITION FOLDER. CM CONTACT INFORMATION GIVEN TO PATIENT FOR ANY NEEDS OR CONCERNS. PATIENT WITH NO FURTHER QUESTIONS.
--- NOTE | 2018-07-20 09:26 | NUR ---
CASE MANAGEMENT INITIAL ASSESSMENT Report Clerk to bedside to discuss plan of care with patient/family. CM/SW role and care transitions discussed. Anticipated discharge plan discussed along with duration of care. CM discussed patients right to make decisions in care. CM/SW work hours given. Patient lives: PATIENT LIVES IN [address] IN [facility] WITH MOTHER Admit/Transfer: ED POA/Emergency contact: BROTHER FEI LEAN: [phone]/ MOTHER: ROSALINDA HERMOSILLO [phone] Current/Previous Home Health: NONE PCP/Follow-up Care: DR. Bob CRUZ Current/Previous DME: [facility]N Other Services: PATIENT GETS HEMODIALYSIS Employment Status: UNEMPLOYED Areas of Concerns: POSSIBLY MOBILITY DUE TO WEAKNESS Referral Needs: HOME HEALTH Education Needs: ESRD IMM/FIGUEROA given and signed (if applicable): IMM Goal for discharge: DISCHARGE HOME WITH NO NEEDS OR HOME HEALTH CM left business card at the bedside with contact information. Name and number was also written on the patients whiteboard. Patient verbalized understanding of discussion. CM will follow-up with ongoing discharge and transition of care needs.
[2018-07-20 11:23] VITALS: BP 133/79
--- NOTE | 2018-07-20 12:02 | NUR ---
PT WENT HOME IN SAFE CONDITION WITH HIS MOTHER
[2018-07-20 13:17] VITALS: BP 148/80
--- NOTE | 2018-07-20 14:23 | Discharge Summary ---
He is a 33-year-old male patient who presented to the emergency room with the complaint of fever. Patient had recurrent ER visit for the above complaint. The patient had presented earlier in the emergency room, and patient was discharged home and then patient was continued to have fever. The patient was sent from the dialysis center. ADMITTING IMPRESSION/DIAGNOSES 1. Fever of unknown origin. 2. Immunocompromised patient with a history of infective endocarditis a prosthetic aortic valve which required two times surgery. 3. Hemodialysis patient. 4. End-stage renal disease patient. 5. Lupus patient. Patient had in the previous influenza, and a strep screen was done which was negative. During the hospitalization, the patient was treated with broad-spectrum antibiotic, vancomycin. A transthoracic echocardiogram was done which was negative for any vegetation. Cultures were obtained, and an ID, cardiology and renal consult were requested. The patient underwent after transesophageal echocardiogram was done. This was negative for vegetation. So, now patient will be discharged home . Antibiotics will be discontinued. Patient will be discharged home, and patient will be followed up as outpatient. JENNIFER CRUZ MD Job#: [id number] EV NEHAL
[2018-07-20] MEDS ORDERED: GENTAMICIN 60MG/NS 50ML 50 ML IV SCH (15:00)
== END 2018-07-20 12:02 | disposition home or self-care (01) | DRG 871 ==
LOC: ER 13:54 → ERHOLD 15:20 → IMCU 20:04 → OBSVTOIN 07-18 10:24 → MED/SURG2 07-19 14:32
PROVIDERS: ADMIT Internal Medicine; ATTEND Internal Medicine
PROC: 5A1D70Z Performance of Urinary Filtration, Intermittent, Less than 6 Hours Per Day (ICD-10-PCS; principal; 2018-07-19)
DX: A41.9 Sepsis, unspecified organism (principal); N18.6 End stage renal disease; I12.0 Hypertensive chronic kidney disease with stage 5 chronic kidney disease or end stage renal disease; Z99.2 Dependence on renal dialysis; L93.0 Discoid lupus erythematosus; Z95.2 Presence of prosthetic heart valve; Z91.15 Patient's noncompliance with renal dialysis; M32.9 Systemic lupus erythematosus, unspecified; Z79.01 Long term (current) use of anticoagulants; E66.9 Obesity, unspecified; Z68.27 Body mass index [BMI] 27.0-27.9, adult
CPT/HCPCS: 36415; 80053; 85025; 86704; 86706; 87040; 87340; 93306; 93312; 93320; 93325; 99283; G0378; J1580; J3370; J7030; J7050

== ENCOUNTER 2018-11-16 15:28 | Emergency (ER) | payer MEDICARE, OTHER ==
[~2018-11-16] VITALS: Ht 190.5 cm; Wt 99.8 kg
--- OUTSIDE RECORDS SUMMARY | 2018-11-16 15:31 | XMS REPORT | Clinical Summary ---
Author Author JEANNINE [facility] Address Unknown Phone Unavailable Care Team Providers Care Strickler Attendant Name Role Phone RizviMario horner Evitachhaya PCP [...] by mouth 2 (two) times daily. 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 Crane ,Dr. Bowles, AVF SLE (systemic lupus erythematosus) 03/11/2016 HTN (hypertension) 03/11/2016 Acid reflux 03/11/2016 Aortic stenosis 02/25/2016 Overview: s/p AVR on 03/04/16 and Redo on 12/27/16 Hypertension Encounters Care Team Description Date Type Specialty Jeana El II, MD 01/18/2018 Evaluation Transplant Jeana El II, MD Yao, June, MD ESRD (end stage renal disease) (HCC) (Primary Dx) 01/18/2018 Evaluation Transplant Jeana El II, MD Systemic lupus erythematosus with endocarditis, unspecified SLE type (HCC); ESRD (end stage renal disease) (HCC); Essential hypertension; Pre-transplant evaluation for chronic kidney disease 01/18/2018 Hospital Radiology Encounter Jeana El II, MD Systemic lupus erythematosus with endocarditis, unspecified SLE type (HCC); ESRD (end stage renal disease) (HCC); Essential hypertension; Pre-transplant evaluation for chronic kidney disease 01/18/2018 Hospital Encounter Jeana El II, MD Systemic lupus erythematosus with endocarditis, unspecified SLE type (HCC); Severe aortic valve regurgitation; ESRD (end stage renal disease) (HCC); MRSA infection (methicillin-resistant Staphylococcus aureus); Pre-transplant evaluation for chronic kidney disease 01/18/2018 Hospital Cardiology Encounter Jeana El II, MD Systemic lupus erythematosus with endocarditis, unspecified SLE type (HCC); Severe aortic valve regurgitation; ESRD (end stage renal disease) (HCC); MRSA infection (methicillin-resistant Staphylococcus aureus); Pre-transplant evaluation for chronic kidney disease 01/18/2018 Hospital Cardiology Encounter Jeana El II, MD Systemic lupus erythematosus with endocarditis, unspecified [...] disease 01/18/2018 Orders Only Transplant Jeana El II, MD 01/17/2018 Outside Orders Radiology Jeana El II, MD Newby, Karen, RN Systemic lupus erythematosus with endocarditis, unspecified SLE type (HCC) (Primary Dx); Severe aortic valve regurgitation; ESRD (end stage renal disease) (HCC); MRSA infection (methicillin-resistant Staphylococcus aureus); Pre-transplant evaluation for chronic kidney disease 12/26/2017 Office Visit Transplant Jeana El II, MD Systemic lupus erythematosus with endocarditis, unspecified SLE type (HCC); Severe aortic valve regurgitation; ESRD (end stage renal disease) (HCC); MRSA infection (methicillin-resistant Staphylococcus aureus); Pre-transplant evaluation for chronic kidney disease 12/26/2017 Orders Only Transplant Hepatology Florencia Gonzalez 11/24/2017 Abstract Transplant Florencia Gonzalez 11/17/2017 Abstract Transplant after 11/15/2017 Immunizations Name Dates Previously Given Next Due [...] Body Mass Index 27.81 Plan of Treatment Not on file Implants Device Identifier Shelf Expiration Date Model / Serial / Lot Implanted Type Area Manufactur er 05/25/2017 [id number] / / [id number] Sealr Hemstat Coseal 8ml [id number] - Cement/Freedom N/A: Chest KEENE:MED [id number] ler/Adhesi DEL Implanted: Qty: 1 on 12/27/2016 by Candelario Loyola 01/23/2019 [id number] / / [id number] Patch Vasc [place] 1.65mm 1x6in Graft/Patc N/A: Chest CR [id number] - [id number] BARD:PERIP Implanted: Qty: 1 on 12/27/2016 by HERAL Beau Holt MD 08/26/2020 HVA-L / ID:[id number] / Cryo.Aortic Valve Tissue N/A: Chest LIFENET Implanted: Qty: 1 on 12/27/2016 by Graft/Subs Beau Cross MD titute 04/19/2021 [id number] / PN [id number] / [id number] Patch Periph Vascu-Grd 2x9cm Tissue N/A: Chest SYNOVIS [id number] - Spn [id number] Graft/Subs LIFE Implanted: Qty: 1 on 12/27/2016 by titute TECH:SURG Beau Cross MD INNOV 11/17/2017 TFGT-[id number] / [id number] / Valve Tiss Trifecta W/Gld 25a Valves N/A: Heart ST ROBI Tfgt-25a - [id number] MED:CARDIA Implanted: Qty: 1 on 03/04/2016 by Beto Grewal MD Explanted: 10/24/2019 [id number] / / [id number] Ring Semiflex 30mm Mounted [id number] Valves N/A: Heart MEDTRONIC: - [id number] STRUCTURAL Implanted: Qty: 1 on 12/27/2016 by HEART Beau Cross MD Procedures Comments Procedure Name Priority Date/Time Associated Diagnosis TRANSFUSE LEUKO-REDUCED Routine 08/02/2018 PLATELETS 5:21 PM CAR BODY DESIGNER TRANSFUSE LEUKO-REDUCED Routine 08/02/2018 PLATELETS 5:21 PM CAR BODY DESIGNER TRANSFUSE LEUKO-REDUCED Routine 08/02/2018 RED BLOOD CELLS 5:21 PM CAR BODY DESIGNER TRANSFUSE LEUKO-REDUCED Routine 08/02/2018 RED BLOOD CELLS 5:21 PM CAR BODY DESIGNER TRANSFUSION SERVICE 01/19/2018 REPORT - SCAN 5:54 [...] Pre-transplant evaluation for chronic kidney disease after 11/15/2017 Results * Transfuse Leuko-Red PLT (08/02/2018 5:21 PM CAR BODY DESIGNER) Only the most recent of 4 results within the time period is included. * Transfuse Leuko-Red RBC (08/02/2018 5:21 PM CAR BODY DESIGNER) Only the most recent of 2 results within the time period is included. * TRANSFUSION SERVICE REPORT - SCAN (01/19/2018 5:54 PM CDT) Only the most recent of 2 results within the time period is included. Narrative Performed At * Ultrasound abdomen complete (01/18/2018 11:14 AM CDT) Specimen Narrative Performed At FINAL REPORT [facility] Ultrasound of the Abdomen, complete Clinical History:Renal [...] MD Report Verified Date/Time:01/18/2018 14:26:38 Reading Location: [address] Radiology Reading Room Procedure Note Interface, [...] Report Verified Date/Time: 01/18/2018 14:26:38 Reading Location: [address] Radiology Reading Room Performing Organization Address City/State/Zipcode Phone Number GE RIS * XR chest 2 views (01/18/2018 9:39 AM CDT) Specimen Narrative Performed At FINAL REPORT [facility] Chest, two views HISTORY: Renal transplant evaluation [...] MD Report Verified Date/Time:01/18/2018 09:41:39 Reading Location: [address] Radiology Reading Room Procedure Note Interface, [...] Report Verified Date/Time: 01/18/2018 09:41:39 Reading Location: [address] Radiology Reading Room Performing Organization Address City/[employer] Phone Number GE RIS * ECG 12 lead (01/18/2018 8:20 AM CDT) Specimen Narrative Performed At Ventricular Rate 86 BPM GE MUSE Atrial Rate 86 BPM P-R Interval 224 ms QRS Duration 144 ms Q-T Interval 428 ms QTC Calculation(Bazett) 512 ms P [place] 43 degrees R [place] -27 degrees T [place] 67 degrees Sinus rhythm with 1st degree [...] 428 ms QTC Calculation(Bazett) 512 ms P [place] 43 degrees R [place] -27 degrees T [place] 67 degrees Sinus rhythm with 1st degree A-V block Right bundle branch block Abnormal ECG When compared with ECG of 10-JAN-2017 05:56, T wave inversion no longer evident in Anterior leads Confirmed by Tony Nunez ([id number]) on 01/18/2018 7:08:33 PM Performing Organization Address [employer] Phone Number iMICROQ MUSE * HLA TYPING CII (01/18/2018 7:24 AM CDT) HLA-DR AG1 4 [facility] HLA-DR AG2 7 [facility] HLA-DR AG3-1 [facility] HLA-DR AG3-2 [facility] HLA[facility]DR AG4-1 53 [facility] HLA-DR AG4-2 53 [facility] HLA-DR AG5-1 [facility] HLA-DR AG5-2 [facility] HLA-DQA1 AG 1-1 03 [facility] HLA-DQA1 AG 1-2 02 [facility] HLA-DQB1 AG 1-1 8 [facility] HLA-DQB1 AG 1-2 2 [facility] HLA-DPA1 AG 1-1 01 [facility] HLA-DPA1 AG 1-2 01 [facility] HLA-DPB1 AG 1-1 04:01 [facility] HLA-DPB1 AG 1-2 04:02 [facility] HLA-AG Notes [facility] HLA-AG Report Comments [facility] Specimen Blood Narrative Performed At Disclaimer: [facility] This test was developed and its performance characteristics determined by the [facility] Laboratory. It has not been cleared or [...] complexity clinical laboratory testing. Performing Organization Address City/State/Zipcode Phone Number [facility] [address], MS: [id number], [place] [address] CLIA#[id number] CAP#[id number] UNOS#[id number] * HLA TYPING CI (01/18/2018 7:24 AM CDT) HLA-A AG1 2 [facility] HLA-A AG2 3 [facility] HLA-B AG1 48 [facility] HLA-B AG2 51 [facility] HLA-C AG1 8 [facility] HLA-C AG2 16 [facility] HLA-B BW1 6 [facility] HLA-B BW2 4 [facility] HLA-AG Notes [facility] HLA-AG Report Comments [facility] Specimen Blood Narrative Performed At Disclaimer: [facility] This test was developed and its performance characteristics determined by the [facility] Laboratory. It has not been cleared or [...] complexity clinical laboratory testing. Performing Organization Address [facility] Phone Number [facility] ONE Omar Madrid, MS: [id number], [place] [address] CLIA#[id number] CAP#[id number] UNOS#[id number] * FLOW PRA CLASS II WITH REFLEX TO ANTIBODY SPECIFICITY (01/18/2018 7:24 AM CDT) Flow Class II Percent 85 [facility] Positive Flow Class Report [facility] Comments Specimen Blood Narrative Performed At Disclaimer: [facility] This test was developed and its performance characteristics determined by the [facility] Laboratory. It has not been cleared or [...] complexity clinical laboratory testing. Performing Organization Address [facility] Phone Number [facility] ONE Omar Madrid, MS: [id number], [place] [address] CLIA#[id number] CAP#[id number] UNOS#[id number] * FLOW PRA CLASS I WITH REFLEX TO ANTIBODY SPECIFICITY (01/18/2018 7:24 AM CDT) Flow Class I Percent 92 [facility] Positive Flow Class Report [facility] Comments Specimen Blood Narrative Performed At Disclaimer: [facility] This test was developed and its performance characteristics determined by the [facility] Laboratory. It has not been cleared or [...] complexity clinical laboratory testing. Performing Organization Address [facility] Phone Number [facility] Omar [address], MS: [id number], [place] [address] CLIA#[id number] CAP#[id number] UNOS#[id number] * AB SPECIFICITY CLASS II (01/18/2018 7:24 AM CDT) AB Specificity Class II DR:8 11 12 13 14 17 18 [facility] DRw:52 DQ:7 DQA:05:05 05:01 05:03 06:01 DP:1 3 5 6 9 10 11 13 14 17 19 20 DPA:02:01 02:02 03:01 AB Specificity Titr Class MFIs > 4000 [facility] Report Specimen Blood Narrative Performed At Disclaimer: [facility] This test was developed and its performance characteristics determined by the [facility] Laboratory. It has not been cleared or [...] complexity clinical laboratory testing. Performing Organization Address City/[facility] Phone Number [facility] ONE Omar [address], MS: [id number], [place] [address] CLIA#[id number] CAP#[id number] UNOS#[id number] * AB SPECIFICITY CLASS I (01/18/2018 7:24 AM CDT) AB Specificity Class I A:1 11 23 24:02 25 26 29 34 36 [facility] 43 66:01 80 B:8 13 18 27:05 37 41 44 45 47 49 50 59 60 61 73 76 82 Cw:4 5 6 7 18 AB Specificity Titr Class MFIs > 4000 [facility] Report Specimen Blood Narrative Performed At Disclaimer: [facility] This test was developed and its performance characteristics determined by the [facility] Laboratory. It has not been cleared or [...] complexity clinical laboratory testing. Performing Organization Address City/State/[facility] Phone Number [facility] [address], MS: [id number], [place] [address] CLIA#[id number] CAP#[id number] UNOS#[id number] * T Spot TB (01/18/2018 7:24 [...] Address City/State/Zipcode Phone Number [facility], [place] [address] LABORATORIES 100 * PT/aPTT (01/18/2018 7:24 AM CDT) Protime 16.6 (H) 11.7 - 14.7 seconds [facility] INR 1.3 <=5.9 [facility] PTT 62.5 (H) 22.5 - 36.0 seconds [facility] Specimen Blood Narrative Performed At RECOMMENDED COUMADIN/WARFARIN INR THERAPY RANGES [facility] STANDARD DOSE: 2.0 - 3.0 Includes: PROPHYLAXIS for venous thrombosis, [facility] systemic embolization; TREATMENT for venous thrombosis and/or pulmonary embolus. HIGH RISK: Target INR is 2.5-3.5 for patients with mechanical heart valves. Performing Organization Address [facility] Phone Number [address] [address] [facility] * HIV-1 Antigen with HIV-1/2 Antibody (01/18/2018 7:24 AM CDT) HIV-1 Antigen with HIV NON-REACTIVE Nonreactive [facility] 1&[address] [facility] Specimen Blood Performing Organization Address [facility]/Zipcode Phone Number [place] [phone] [place] [address] [facility] * 1:1 MIXING STUDY, NON-INCUBATED (01/18/2018 7:24 AM CDT) Protime 16.0 (H) 11.7 - 14.7 seconds [facility] PTT 55.3 (H) 22.5 - 36.0 seconds [facility] PT 06/26 Mix 14.6 11.7 - 14.7 SECS [facility] PTT 06/26 Mix 37.2 (H) 22.5 - 36.0 SECS [facility] Specimen Blood Performing Organization Address City/State/Zipcode Phone Number [facility] [address] [place] [address] MEDICAL CENTER * CBC with platelet count + automated diff (01/18/2018 7:24 AM CDT) WBC 9.6 3.5 - 10.5 K/L [facility] RBC 4.35 (L) 4.63 - 6.08 M/L [facility] Hemoglobin 12.1 (L) 13.7 - 17.5 GM/DL [facility] Hematocrit 39.5 (L) 40.1 - 51.0 % [facility] MCV 90.8 79.0 - 92.2 fL [facility] MCH 27.8 25.7 - 32.2 pg [facility] MCHC 30.6 (L) 32.3 - 36.5 GM/DL [facility] RDW 16.0 (H) 11.6 - 14.4 % [facility] Platelets 252 150 - 450 K/CU MM [facility] MPV 9.5 9.4 - 12.4 fL [facility] nRBC 0 0 - 0 /100 WBC [facility] % Neutros 70 % [facility] % Lymphs 16 % [facility] % Monos 9 % [facility] % Eos 4 % [facility] % Baso 0 % [facility] # Neutros 6.69 (H) 1.78 - 5.38 K/L [facility] # Lymphs 1.53 1.32 - 3.57 K/L [facility] # Monos 0.88 (H) 0.30 - 0.82 K/L [facility] # Eos 0.40 0.04 - 0.54 K/L [facility] # Baso 0.04 0.01 - 0.08 K/L [facility] Immature 1 0 - 1 % [facility] Granulocytes-Relative [facility] Specimen Blood Performing Organization Address City/State/Zipcode Phone Number [address] * Hepatitis C Antibody (01/18/2018 7:24 AM CDT) Hepatitis C Ab NON-REACTIVE Nonreactive [facility] Specimen Blood Performing Organization Address City/[facility]/Zipcode Phone Number [address] * Cytomegalovirus antibody, IgM (01/18/2018 7:24 AM CDT) CMV IGM Negative Negative, Equivocal [facility] Specimen Blood Narrative Performed At CMV IgM Result Interpretation: [facility] </=0.[address] [facility] 0.9-1.0 Al Equivocal >/=1.1 Al Positive Performing Organization Address City/[facility] Phone Number [address] * Double-Stranded DNA (dsDNA) Antibody (01/18/2018 7:24 AM CDT) ds DNA Ab Negative [facility] Specimen Blood Performing Organization Address City/[facility]/Zipcode Phone Number [facility] [phone] * Hepatitis B core antibody, IgM (01/18/2018 7:24 AM CDT) Hep B C IgM NON-REACTIVE Nonreactive [facility] Specimen Blood Performing Organization Address [facility] Phone Number [address] [address] [phone] [place] [address] * EBV-VCA antibody, IgM (01/18/2018 7:24 AM CDT) OMER PENDLETON VIRAL CAPSID Negative Negative, Equivocal [facility] ANTIGEN IGM [facility] Specimen Blood Narrative Performed At Omer Pendleton Viral Capsid Antigen IgM Result Interpretation: [facility] </=0.[address] [facility] 0.9-1.0 Al Equivocal >/=1.1 Al Positive Performing Organization Address [facility] Phone Number [address] * EBV-VCA antibody, IgG (01/18/2018 7:24 AM CDT) OMER PENDLETON VIRAL CAPSID Positive (A) Negative, Equivocal [facility] ANTIGEN IGG [facility] Specimen Blood Narrative Performed At Omer Pendleton Viral Capsid Antigen IgG Result Interpretation: [facility] </=0.[address] [facility] 0.9-1.0 Al Equivocal >/=1.1 Al Positive Performing Organization Address City/[facility] Phone Number [address] [address] [phone] [place] [address] * Blood typing, automated (01/18/2018 7:24 AM CDT) ABO/RH AUTOMATED (BEAKER) O POSITIVE [facility] Specimen Blood Performing Organization Address City/[facility] Phone Number [place] [phone] [place] [address] * RPR (01/18/2018 7:24 AM CDT) RPR Nonreactive Nonreactive [facility] Specimen Blood Performing Organization Address [facility] Phone Number [address] * Hepatitis B surface antibody (01/18/2018 7:24 AM CDT) Hep B S Ab <8.0 <8.0 mIU/mL [facility] Specimen Blood Performing Organization Address City/[facility] Phone Number [address] * Hepatitis B surface antigen (01/18/2018 7:24 AM CDT) hepatitis B Surface Ag NON-REACTIVE Nonreactive [facility] Specimen Blood Performing Organization Address [facility] Phone Number [address] * Cytomegalovirus antibody, IgG (01/18/2018 7:24 AM CDT) CYTOMEGALOVIRUS, IGG Positive (A) Negative, Equivocal [facility] Specimen Blood Narrative Performed At CMV IgG Result Interpretation: [facility] </=0.[address] [facility] 0.9-1.0 Al Equivocal >/=1.1 AlPositive Performing Organization Address [facility] Phone Number [address] * Cardiolipin Antibodies, IgG and IgM (01/18/2018 7:24 AM CDT) Anticardiolipin IgG 3.3 <20.0 GPL [facility] Anticardiolipin IgM 0.9 <20.0 MPL [facility] Specimen Blood Narrative Performed At Anticardiolipin IgG Result Interpretation: [facility] <20.[address] [facility] >/=20.0 GPL Positive Anticardiolipin IgM Result Interpretation: <20.0 MPL Normal >/=20.0 MPL Positive Performing Organization Address [facility]/State/Zipcode Phone Number [address] * Direct AHG (KOREY)/Direct Ciara (01/18/2018 7:24 AM CDT) Direct AHG-IGG NEGATIVE [facility] Direct AHG-C3B, C3D NEGATVIE [facility] Specimen Blood Performing Organization Address City/[facility] Phone Number [address] * Varicella Zoster Antibody, IgG (01/18/2018 7:24 AM CDT) Varicella IgG >8.0 [facility] Specimen Blood Narrative Performed At VARICELLA ZOSTER RESULT INTERPRETATIONS: [facility] <=0.8 AlNonreactive:Presumed non-immune to VZV [facility] 0.9-1.0 AlEquivocal >=1.1 AlReactive:Presumed immune to VZV Performing Organization Address [facility] Phone Number [address] * Complement Component C3 (01/18/2018 7:24 AM CDT) C3 Complement 190 82 - 193 mg/dL [facility] Specimen Blood Performing Organization Address City/[facility] Phone Number [address] * Complement Component C4 (01/18/2018 7:24 AM CDT) C4 Complement 34 15 - 57 mg/dL [facility] Specimen Blood Performing Organization Address [facility] Phone Number [address] * Uric Acid (01/18/2018 7:24 AM CDT) Uric Acid 3.8 2.6 - 7.2 mg/dL [facility] Specimen Blood Performing Organization Address City/[facility] Phone Number [phone] [place] [address] * Phosphorus (01/18/2018 7:24 AM CDT) Phosphorus 5.4 (H) 2.3 - 4.7 mg/dL [facility] Specimen Blood Performing Organization Address City/[facility] Phone Number [address] * PTH, Intact (01/18/2018 7:24 AM CDT) PTH 753.2 (H) 8.5 - 72.5 pg/mL [facility] Specimen Blood Performing Organization Address [facility] Phone Number [address] * Lactate Dehydrogenase (LDH) (01/18/2018 7:24 AM CDT) LDH 211 125 - 220 U/L [facility] Specimen Blood Performing Organization Address [facility] Phone Number [address] * Hemoglobin A1c (01/18/2018 7:24 AM CDT) Hemoglobin A1C 5.3 4.3 - 6.1 % [facility] Specimen Blood Performing Organization Address City/[facility] Phone Number [address] * Gamma Glutamyl Transferase (GGT) (01/18/2018 7:24 AM CDT) GGT 56 9 - 64 U/L [facility] Specimen Blood Performing Organization Address City/[facility] Phone Number [address] * Lipid panel (01/18/2018 7:24 AM CDT) Triglycerides 76 mg/dL [facility] Cholesterol 128 mg/dL [facility] HDL 41 mg/dL [facility] LDL Calculated 72 mg/dL [facility] Specimen Blood Narrative Performed At Triglyceride Reference Range: [facility] Low Risk <[address] [facility] [id number] High Risk 200-499 Very High Risk>=500 Cholesterol Reference Range: Low Risk <200 [id number] High Risk>240 HDL Cholesterol Reference Range: Low Risk >=60 High Risk <40 LDL Cholesterol Reference Range: Optimal<100 Near [id number] Very High >=190 Performing Organization Address City/State/[facility] Phone Number [facility] [address] [place] [address] MED[facility]ENTER * Comprehensive metabolic panel (01/18/2018 7:24 AM CDT) Protein, Total 10.0 (H) 6.0 - 8.3 gm/dL [facility] Albumin 4.6 3.5 - 5.0 g/dL [facility] Alkaline Phosphatase 303 (H) 40 - 150 U/L [facility] Total Bilirubin 0.6 0.2 - 1.2 mg/dL [facility] Sodium 136 136 - 145 meq/L [facility] Potassium 4.0 3.5 - 5.1 meq/L [facility] Chloride 90 (L) 98 - 107 meq/L [facility] CO2 30 (H) 22 - 29 meq/L [facility] BUN 23 (H) 7 - 21 mg/dL [facility] Creatinine 7.23 (H) 0.57 - 1.25 mg/dL [facility] Glucose 87 70 - 105 mg/dL [facility] Calcium 10.2 8.4 - 10.2 mg/dL [facility] AST 16 5 - 34 U/L [facility] ALT 15 6 - 55 U/L [facility] EGFR 9Comment: ESTIMATED GFR IS NOT mL/min/1.73 sq m [facility] ACCURATE CREATININE [facility] CLEARANCE IN PREDICTING GLOMERULAR FILTRATION RATE. ESTIMATED GFR IS NOT APPLICABLE FOR DIALYSIS PATIENTS. Specimen Blood Performing Organization Address City/[facility] Phone Number [address] [phone] [facility] * Type and Screen, Automated (12/26/2017 10:48 AM CDT) ABO/RH AUTOMATED (BEAKER) O POSITIVE [facility] Ab Scrn NEGATIVE [facility] Specimen Blood Performing Organization Address [facility] Phone Number [address] [address] [facility] after 11/15/2017 Insurance Payer Benefit Subscriber ID Type Phone Address Plan / Group MEDICARE MEDICARE A xxxxxxxxxx Medicare B MEDICAID MEDICAID xxxxxxxxx Medicaid OF [place] Advance Directives For more information, please contact: [address] [phone] Date Inactivated Comments Code Status Date Activated [...]
--- NOTE | 2018-11-16 16:38 | Diagnostic Imaging Report ---
EXAMINATION: PA and lateral views of the chest. COMPARISON: 07/15/2018 CLINICAL HISTORY: Shortness of breath, chest pain, lightheadedness after dialysis DISCUSSION: Lungs are well-inflated. Small bilateral pleural effusions and bibasilar opacities, similar to that noted 07/15/2018. Stable cardiomediastinal contour with postsurgical changes of the mediastinum. No overt pulmonary edema. No acute osseous abnormality. Anterior wedge deformity of a lower thoracic vertebral body unchanged. IMPRESSION: Small bilateral pleural effusions with bibasilar airspace opacities, likely atelectasis. Signed by: Dr. Rm Mitchell M.D. on 11/16/2018 4:35 PM
[2018-11-16] MEDS ORDERED: KETOROLAC TROME10 MG PO (17:16)
[2018-11-16] MEDS ORDERED: ONDANSETRON ODT8 MG PO (17:17)
[2018-11-16] MEDS ORDERED: FLOMAX0.4 MG PO (17:19)
[2018-11-16] MEDS ORDERED: POTASSIUM CHLORIDE 20 MEQ TAB CR PO ONE (18:00)
--- NOTE | 2018-11-16 18:04 | NUR ---
PT RESTING, VITAL SIGNS STABLE, PT AND FAMILY AWARE OF POC.
--- NOTE | 2018-11-16 18:39 | NUR ---
REPORT TO ERNESTINA YARBROUGH ALL QUESTIONS ANSWERED
[2018-11-16] MEDS ORDERED: SODIUM CHLORIDE 0.9% 50ML 50 ML ONE (18:43)
[2018-11-16] MEDS ORDERED: IOPAMIDOL 370 MG/ML 200 ML INFUS..BTL INJ ONE (18:44)
--- NOTE | 2018-11-16 19:27 | Diagnostic Imaging Report ---
ADDENDUM #1 No pulmonary embolism is seen. Signed by: Dr. Diallo Gasca M.D. on 11/16/2018 7:48 PM ORIGINAL REPORT EXAM: CT Chest WITH contrast November 16, 2018 INDICATION: Shortness of breath. Dialysis. COMPARISON: None. TECHNIQUE: Chest was scanned utilizing a multidetector helical scanner from the lung apex through the level of the adrenal glands after administration of IV contrast. Coronal and sagittal reformations were obtained. IV CONTRAST: 100 mL Omnipaque 300 ORAL CONTRAST: None COMPLICATIONS: None RADIATION DOSE: Total DLP: 666.28 mGy*cm Estimated effective dose: (DLP x 0.015 x size factor) mSv CTDIvol has been reviewed. It is below the limits set by the Radiation Protocol Committee (RPC). FINDINGS: LINES/ TUBES: Sternal wires and postsurgical change to the heart. LUNGS AND AIRWAYS: Mild chronic appearing changes in the lungs with scarring/atelectasis in the lung bases left side greater than right. Airways are normal. PLEURA: The pleural spaces are clear. HEART AND MEDIASTINUM: The thyroid gland is normal. No mediastinal, hilar or axillary lymphadenopathy. The heart is normal in size. There is no pericardial effusion. UPPER ABDOMEN: Cholecystectomy clips. BONES: The visualized bony thorax is within normal limits. SOFT TISSUES: Unremarkable. IMPRESSION: Mild chronic appearing changes in the lungs with scarring/atelectasis in the lung bases left side greater than right. Signed by: Dr. Diallo Gasca M.D. on 11/16/2018 7:24 PM
[2018-11-16 20:07] VITALS: BP 100/65
== END 2018-11-16 20:18 | disposition home or self-care (01) ==
LOC: FSED 15:28
DX: R06.00 Dyspnea, unspecified (principal); E87.6 Hypokalemia; R53.1 Weakness; I13.2 Hypertensive heart and chronic kidney disease with heart failure and with stage 5 chronic kidney disease, or end stage renal disease; I50.9 Heart failure, unspecified; N18.6 End stage renal disease; M32.9 Systemic lupus erythematosus, unspecified; E03.9 Hypothyroidism, unspecified; K21.9 Gastro-esophageal reflux disease without esophagitis
CPT/HCPCS: 71046; 71260; 80048; 80076; 81003; 82553; 83880; 84484; 85025; 85379; 93005; 99284; Q9967

== ENCOUNTER 2018-12-28 20:28 | Emergency (ER) | payer MEDICARE, OTHER ==
[~2018-12-28] VITALS: Ht 190.5 cm; Wt 99.3 kg
[~2018-12-28 20:28] MED LIST changes: +FLOMAX0.4 MG PO; +KETOROLAC TROME10 MG PO; +ONDANSETRON ODT8 MG PO
--- OUTSIDE RECORDS SUMMARY | 2018-12-28 20:32 | XMS REPORT | Clinical Summary ---
Author Author [facility] Address Unknown Phone Unavailable Care Team Providers Care Rib Cutter Name Role Phone RizviMario horner Evitachhaya PCP [...] by mouth 2 (two) times daily. Active rgqmcx-gwoarpmh-fpevwtc Take 36,000 0 (CREON) 36,000-114,000- units of 180,000 unit CpDR capsule lipase by mouth 3 (three) times daily. Active levothyroxine (SYNTHROID, Take 50 mcg 0 LEVOTHROID) 50 MCG tablet by mouth Every morning on an empty stomach. 02/02/2018 aspirin 81 MG chewable Take 1 tablet 30 tablet 0 tablet (81 mg total) 7 by mouth daily. 01/18/2018 Discontinued hydrALAZINE (APRESOLINE) Take 50 mg by 3 25 MG tablet mouth 3 7 (three) times daily . 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 Crane ,Dr. Bowles, AVF SLE [...] kidney disease 01/18/2018 Orders Only Lab Teetee Rihcmond RN Systemic lupus erythematosus with endocarditis, unspecified SLE type (HCC) (Primary Dx); ESRD (end stage renal disease) (HCC); Essential hypertension; Pre-transplant evaluation for chronic kidney disease 01/18/2018 Orders Only Transplant Jeana El II, MD 01/17/2018 Outside Orders Radiology after 12/27/2017 Immunizations Name Dates Previously Given Next Due [...] Lot Implanted Type Area Manufactur er 05/25/2017 [id number] / / [id number] Sealr Hemstat Coseal 8ml [id number] - Cement/Freedom N/A: Chest KEENE:MED [id number] ler/Adhesi DEL Implanted: Qty: 1 on 12/27/2016 by Candelario Loyola 01/23/2019 [id number] / / [id number] Patch Vasc Burchard 1.65mm 1x6in Graft/Patc N/A: Chest CR [id number] - [id number] BARD:PERIP Implanted: Qty: 1 on 12/27/2016 by HERAL Beau Holt MD 08/26/2020 HVA-L / ID:[id number] / Cryo.Aortic Valve Tissue N/A: Chest LIFENET Implanted: Qty: 1 on 12/27/2016 by Graft/Subs Beau Cross MD titute 04/19/2021 [id number] / PN [id number] / [id number] Patch Periph Vascu-Grd 2x9cm Tissue N/A: Chest SYNOVIS [id number] - Spn [id number] Graft/Subs LIFE Implanted: Qty: 1 on 12/27/2016 by titute TECH:SURG Beau Cross MD INNOV 11/17/2017 [id number] / [id number] / Valve Tiss Trifecta W/Gld 25a Valves N/A: Heart ST ROBI Tfgt-25a - [id number] MED:CARDIA Implanted: Qty: 1 on 03/04/2016 by C Beto Aldridge MD Explanted: 10/24/2019 [id number] / / [id number] Ring Semiflex 30mm Mounted [id number] Valves N/A: Heart MEDTRONIC: - [id number] STRUCTURAL Implanted: Qty: 1 on 12/27/2016 by HEART Beau Cross MD Procedures Comments Procedure Name Priority Date/Time Associated Diagnosis TRANSFUSE LEUKO-REDUCED Routine 08/02/2018 PLATELETS 5:21 PM CHEMICAL RADIATION TECHNICIAN TRANSFUSE LEUKO-REDUCED Routine 08/02/2018 PLATELETS 5:21 PM CHEMICAL RADIATION TECHNICIAN TRANSFUSE LEUKO-REDUCED Routine 08/02/2018 RED BLOOD CELLS 5:21 PM CHEMICAL RADIATION TECHNICIAN TRANSFUSE LEUKO-REDUCED Routine 08/02/2018 RED BLOOD CELLS 5:21 PM CHEMICAL RADIATION TECHNICIAN TRANSFUSION SERVICE 01/19/2018 REPORT - SCAN 5:54 [...] 12/27/2017 REPORT - SCAN 6:04 PM CDT after 12/27/2017 Results * Transfuse Leuko-Red PLT (08/02/2018 5:21 PM CHEMICAL RADIATION TECHNICIAN) Only the most recent of 4 results within the time period is included. * Transfuse Leuko-Red RBC (08/02/2018 5:21 PM CHEMICAL RADIATION TECHNICIAN) Only the most recent of 2 results within the time period is included. * TRANSFUSION SERVICE REPORT - SCAN (01/19/2018 5:54 PM CDT) Only the most recent of 2 results within the time period is included. Narrative Performed At * Ultrasound abdomen complete (01/18/2018 11:14 AM CDT) Specimen Narrative Performed At FINAL REPORT [employer] [facility] Ultrasound of the Abdomen, complete Clinical [...] MD Report Verified Date/Time:01/18/2018 14:26:38 Reading Location: [address] Radiology Reading Room Procedure Note Interface, [...] Report Verified Date/Time: 01/18/2018 14:26:38 Reading Location: [address] Radiology Reading Room Performing Organization Address City/State/Zipcode Phone Number [employer] * XR chest 2 views (01/18/2018 9:39 AM CDT) Specimen Narrative Performed At FINAL REPORT [employer] Chest, two views HISTORY: Renal transplant evaluation [...] MD Report Verified Date/Time:01/18/2018 09:41:39 Reading Location: [address] Radiology Reading Room Procedure Note Interface, [...] Report Verified Date/Time: 01/18/2018 09:41:39 Reading Location: [address] Radiology Reading Room Performing Organization Address City/State/Zipcode Phone Number GE RIS * ECG 12 lead (01/18/2018 8:20 AM CDT) Specimen Narrative Performed At Ventricular Rate 86 BPM GE MUSE Atrial Rate 86 BPM P-R Interval 224 ms QRS Duration 144 ms Q-T Interval 428 ms QTC Calculation(Bazett) 512 ms P [place] 43 degrees R [place] -27 degrees T [place] 67 degrees Sinus rhythm with 1st degree [...] 428 ms QTC Calculation(Bazett) 512 ms P [place] 43 degrees R [place] -27 degrees T [place] 67 degrees Sinus rhythm with 1st degree A-V block Right bundle branch block Abnormal ECG When compared with ECG of 10-JAN-2017 05:56, T wave inversion no longer evident in Anterior leads Confirmed by Tony Nunez ([id number]) on 01/18/2018 7:08:33 PM Performing Organization Address City/[facility] Phone Number [facility] * HLA TYPING CII (01/18/2018 7:24 AM CDT) HLA-DR AG1 4 [facility] HLA-DR AG2 7 [facility] HLA-DR AG3-1 [facility] HLA[facility]DR AG3-2 [facility] HLA-DR AG4-1 53 [facility] HLA-DR AG4-2 53 [facility] HLA-DR AG5-1 [facility] HLA-DR AG5-2 [facility] HLA-DQA1 AG 1-1 03 [facility] HLA-DQA1 AG 1-2 02 [facility] HLA-DQB1 AG 1-1 8 [facility] HLA-DQB1 AG 1-2 2 [facility] HLA-DPA1 AG 1-1 01 [facility] HLA-DPA1 AG 1-2 01 [facility] HLA-DPB1 AG 1-1 04:01 [facility] HLA-DPB1 AG 1-2 04:02 [facility] HLA-AG Notes [facility] HLA-AG Report Comments [facility] Specimen Blood Narrative Performed At Disclaimer: [facility] This test was developed and its performance characteristics determined by the [facility]. It has not been cleared or [...] complexity clinical laboratory testing. Performing Organization Address City/State/[facility] Phone Number [facility] ONE [facility] Julius, MS: [id number], [place] [address] CLIA#[id number] CAP#[id number] UNOS#[id number] * HLA TYPING CI (01/18/2018 7:24 AM CDT) HLA-A AG1 2 [facility] HLA-A AG2 3 [facility] HLA-B AG1 48 [facility] HLA-B AG2 51 [facility] HLA-C AG1 8 [facility] HLA-C AG2 16 [facility] HLA-B BW1 6 [facility] HLA-B BW2 4 [facility] HLA-AG Notes [facility] HLA-AG Report Comments [facility] Specimen Blood Narrative Performed At Disclaimer: [facility] This test was developed and its performance characteristics determined by the [facility]. It has not been cleared or [...] complexity clinical laboratory testing. Performing Organization Address City/[facility] Phone Number [facility] ONE [facility] [address], [address]: [id number], [place] [address] CLIA#[id number] CAP#[id number] UNOS#[id number] * FLOW PRA CLASS II WITH REFLEX TO ANTIBODY SPECIFICITY (01/18/2018 7:24 AM CDT) Flow Class II Percent 85 [facility] Positive Flow Class Report [facility] Comments Specimen Blood Narrative Performed At Disclaimer: [facility] This test was developed and its performance characteristics determined by the [facility]. It has not been cleared or [...] complexity clinical laboratory testing. Performing Organization Address City/State/[facility] Phone Number [facility] ONE [address], [address]: [id number], [place] [address] CLIA#[id number] CAP#[id number] UNOS#[id number] * FLOW PRA CLASS I WITH REFLEX TO ANTIBODY SPECIFICITY (01/18/2018 7:24 AM CDT) Flow Class I Percent 92 [facility] Positive Flow Class Report [facility] Comments Specimen Blood Narrative Performed At Disclaimer: [facility] This test was developed and its performance characteristics determined by the [facility]. It has not been cleared or [...] complexity clinical laboratory testing. Performing Organization Address City/[facility] Phone Number [facility] ONE Omar Julius, MS: [id number], [place] [address] CLIA#[id number] CAP#[id number] UNOS#[id number] * AB SPECIFICITY CLASS II (01/18/2018 7:24 AM CDT) AB Specificity Class II DR:8 11 12 13 14 17 18 [facility] DRw:52 DQ:7 DQA:05:05 05:01 05:03 06:01 DP:1 3 5 6 9 10 11 13 14 17 19 20 DPA:02:01 02:02 03:01 AB Specificity Titr Class MFIs > 4000 [facility] Report Specimen Blood Narrative Performed At Disclaimer: [facility] This test was developed and its performance characteristics determined by the [facility]. It has not been cleared or [...] complexity clinical laboratory testing. Performing Organization Address City/[facility] Phone Number [facility] ONE [address] [place], MS: [id number], [place] [address] CLIA#[id number] CAP#[id number] UNOS#[id number] * AB SPECIFICITY CLASS I (01/18/2018 7:24 AM CDT) AB Specificity Class I A:1 11 23 24:02 25 26 29 34 36 [facility] 43 66:01 80 B:8 13 18 27:05 37 41 44 45 47 49 50 59 60 61 73 76 82 Cw:4 5 6 7 18 AB Specificity Titr Class MFIs > 4000 [facility] Report Specimen Blood Narrative Performed At Disclaimer: [facility] This test was developed and its performance characteristics determined by the [facility]. It has not been cleared or [...] testing. Performing Organization Address City/State/Zipcode Phone Number [facility] ONE [facility] [address], MS: [id number], [place] [address] CLIA#[id number] CAP#[id number] UNOS#[id number] * T Spot TB (01/18/2018 7:24 AM CDT) T-Spot TB Negative [facility] Neg Ctrl Spot Count 0 [facility] Panel A Spot 1 [facility] Panel B Spot 1 [facility] Pos Ctrl Spot Ct 0 [facility] Scan Result [facility] Specimen Blood Narrative Performed At Performing Organization Address City/[facility]/Zipcode Phone Number [facility] [address] [place] [address] LABORATORIES 100 * PT/aPTT (01/18/2018 7:24 AM CDT) Protime 16.6 (H) 11.7 - 14.7 seconds [facility] INR 1.3 <=5.9 [facility] PTT 62.5 (H) 22.5 - 36.0 seconds [facility] Specimen Blood Narrative Performed At RECOMMENDED COUMADIN/WARFARIN INR THERAPY RANGES [facility] STANDARD DOSE: 2.0 - 3.0 Includes: PROPHYLAXIS for venous thrombosis, [facility] systemic embolization; TREATMENT for venous thrombosis and/or pulmonary embolus. HIGH RISK: Target INR is 2.5-3.5 for patients with mechanical heart valves. Performing Organization Address City/State/Zipcode Phone Number [facility] [address] [place] [address] [facility] * HIV-1 Antigen with HIV-1/2 Antibody (01/18/2018 7:24 AM CDT) HIV-1 Antigen with HIV Nonreactive Nonreactive [facility] 1&2 Antibody [facility] Specimen Blood Performing Organization Address City/[facility]/Zipcode Phone Number [facility] [address] [place] [address] [facility] * 1:1 MIXING STUDY, NON-INCUBATED (01/18/2018 7:24 AM CDT) Protime 16.0 (H) 11.7 - 14.7 seconds [facility] PTT 55.3 (H) 22.5 - 36.0 seconds [facility] PT 06/26 Mix 14.6 11.7 - 14.7 SECS [facility] PTT 06/26 Mix 37.2 (H) 22.5 - 36.0 SECS [facility] Specimen Blood Performing Organization Address City/State/Zipcode Phone Number [facility] [address] [place] [address] [facility] * CBC with platelet count + automated diff (01/18/2018 7:24 AM CDT) WBC 9.6 3.5 - 10.5 K/L [facility] RBC 4.35 (L) 4.63 - 6.08 M/L [facility] Hemoglobin 12.1 (L) 13.7 - 17.5 GM/DL [facility] Hematocrit 39.5 (L) 40.1 - 51.0 % [facility] MCV 90.8 79.0 - 92.2 fL [facility] MCH 27.8 25.7 - 32.2 pg [facility] MCHC 30.6 (L) 32.3 - 36.5 GM/DL [facility] RDW 16.0 (H) 11.6 - 14.4 % [facility] Platelets 252 150 - 450 K/CU MM [facility] MPV 9.5 9.4 - 12.4 fL [facility] nRBC 0 0 - 0 /100 WBC [facility] % Neutros 70 % [facility] % Lymphs 16 % [facility] % Monos 9 % [facility] % Eos 4 % [facility] % Baso 0 % [facility] # Neutros 6.69 (H) 1.78 - 5.38 K/L [facility] # Lymphs 1.53 1.32 - 3.57 K/L [facility] # Monos 0.88 (H) 0.30 - 0.82 K/L [facility] # Eos 0.40 0.04 - 0.54 K/L [facility] # Baso 0.04 0.01 - 0.08 K/L [facility] Immature 1 0 - 1 % [facility] Granulocytes-[facility] Specimen Blood Performing Organization Address City/State/[place] [address] [phone] [place] [address] * Hepatitis C Antibody (01/18/2018 7:24 AM CDT) Hepatitis C Ab Nonreactive Nonreactive [facility] Specimen Blood Performing Organization Address City/[facility]/Zipcode Phone Number [address] [address] [facility] * Cytomegalovirus antibody, IgM (01/18/2018 7:24 AM CDT) CMV IGM Negative Negative, Equivocal [facility] Specimen Blood Narrative Performed At CMV IgM Result Interpretation: [facility] </=0.8 Al Negative [facility] 0.9-1.0 Al Equivocal >/=1.1 Al Positive Performing Organization Address [facility] Phone Number [address] * Double-Stranded DNA (dsDNA) Antibody (01/18/2018 7:24 AM CDT) ds DNA Ab Negative [facility] Specimen Blood Performing Organization Address [facility] Phone Number [address] * Hepatitis B core antibody, IgM (01/18/2018 7:24 AM CDT) Hep B C IgM Nonreactive Nonreactive [facility] Specimen Blood Performing Organization Address [facility] Phone Number [address] * EBV-VCA antibody, IgM (01/18/2018 7:24 AM CDT) OMER PENDLE[place] VIRAL CAPSID Negative Negative, Equivocal [facility] ANTIGEN IGM [facility] Specimen Blood Narrative Performed At Omer Pendleton Viral Capsid Antigen IgM Result Interpretation: [facility] </=0.8 Al Negative [facility] 0.9-1.0 Al Equivocal >/=1.1 Al Positive Performing Organization Address [facility] Phone Number [address] * EBV-VCA antibody, IgG (01/18/2018 7:24 AM CDT) OMER PENDLE[place] VIRAL CAPSID Positive (A) Negative, Equivocal [facility] ANTIGEN IGG [facility] Specimen Blood Narrative Performed At Omer Pendleton Viral Capsid Antigen IgG Result Interpretation: [facility] </=0.8 Al Negative [facility] 0.9-1.0 Al Equivocal >/=1.1 Al Positive Performing Organization Address [facility] Phone Number [address] * Blood typing, automated (01/18/2018 7:24 AM CDT) ABO/RH AUTOMATED (BEAKER) O POSITIVE [facility] Specimen Blood Performing Organization Address [facility] Phone Number [address] * RPR (01/18/2018 7:24 AM CDT) RPR Nonreactive Nonreactive [facility] Specimen Blood Performing Organization Address [facility] [place] Phone Number [address] * Hepatitis B surface antibody (01/18/2018 7:24 AM CDT) Hep B S Ab <8.0 <8.0 mIU/mL [facility] Specimen Blood Performing Organization Address [facility] Phone Number [address] * Hepatitis B surface antigen (01/18/2018 7:24 AM CDT) hepatitis B Surface Ag Nonreactive Nonreactive [facility] Specimen Blood Performing Organization Address [facility] Phone Number [address] * Cytomegalovirus antibody, IgG (01/18/2018 7:24 AM CDT) CYTOMEGALOVIRUS, IGG Positive (A) Negative, Equivocal [facility] Specimen Blood Narrative Performed At CMV IgG Result Interpretation: [facility] </=0.8 Al Negative [facility] 0.9-1.0 Al Equivocal >/=1.1 AlPositive Performing Organization Address [facility] [place] Phone Number [address] * Cardiolipin Antibodies, IgG and IgM (01/18/2018 7:24 AM CDT) Anticardiolipin IgG 3.3 <20.0 GPL [facility] Anticardiolipin IgM 0.9 <20.0 MPL [facility] Specimen Blood Narrative Performed At Anticardiolipin IgG Result Interpretation: [facility] <20.0 GPL Normal [facility] >/=20.0 GPL Positive Anticardiolipin IgM Result Interpretation: <20.0 MPL Normal >/=20.0 MPL Positive Performing Organization Address [facility] Cent[facility]ode Phone Number [address] * Direct AHG (KOREY)/Direct Ciara (01/18/2018 7:24 AM CDT) Direct AHG-IGG NEGATIVE [facility] Direct AHG-C3B, C3D NEGATVIE [facility] Specimen Blood Performing Organization Address [facility] Phone Number [address] * Varicella Zoster Antibody, IgG (01/18/2018 7:24 AM CDT) Varicella IgG >8.0 [facility] Specimen Blood Narrative Performed At VARICELLA ZOSTER RESULT INTERPRETATIONS: [facility] <=0.8 AlNonreactive:Presumed non-immune to VZV [facility] 0.9-1.0 AlEquivocal >=1.1 AlReactive:Presumed immune to VZV Performing Organization Address City/[facility]ode Phone Number [phone] [place] [address] * Complement Component C3 (01/18/2018 7:24 AM CDT) C3 Complement 190 82 - 193 mg/dL [facility] Specimen Blood Performing Organization Address City/[facility]ode Phone Number [phone] [place] [address] MEDICAL CENTER * Complement Component C4 (01/18/2018 7:24 AM CDT) C4 Complement 34 15 - 57 mg/dL [facility] Specimen Blood Performing Organization Address City/[facility] Phone Number [address] * Uric Acid (01/18/2018 7:24 AM CDT) Uric Acid 3.8 2.6 - 7.2 mg/dL [facility] Specimen Blood Performing Organization Address [facility] Phone Number [address] * Phosphorus (01/18/2018 7:24 AM CDT) Phosphorus 5.4 (H) 2.3 - 4.7 mg/dL [facility] Specimen Blood Performing Organization Address City/[facility] Phone Number [address] * PTH, Intact (01/18/2018 7:24 AM CDT) PTH 753.2 (H) 8.5 - 72.5 pg/mL [facility] Specimen Blood Performing Organization Address [facility] Phone Number [address] * Lactate Dehydrogenase (LDH) (01/18/2018 7:24 AM CDT) LDH 211 125 - 220 U/L [facility] Specimen Blood Performing Organization Address [facility] Phone Number [address] * Hemoglobin A1c (01/18/2018 7:24 AM CDT) Hemoglobin A1C 5.3 4.3 - 6.1 % [facility] Specimen Blood Performing Organization Address City/State/Zipcode Phone Number [facility] [address] [place] [phone] [facility] * Gamma Glutamyl Transferase (GGT) (01/18/2018 7:24 AM CDT) GGT 56 9 - 64 U/L [facility] Specimen Blood Performing Organization Address City/[facility] Phone Number [address] [address] [facility] * Lipid panel (01/18/2018 7:24 AM CDT) Triglycerides 76 mg/dL [facility] Cholesterol 128 mg/dL [facility] HDL 41 mg/dL [facility] LDL Calculated 72 mg/dL [facility] Specimen Blood Narrative Performed At Triglyceride Reference Range: [facility] Low Risk <150 [facility] [id number] High Risk 200-499 Very High Risk>=500 Cholesterol Reference Range: Low Risk <200 Vtmqpudosd088-325 High Risk>240 HDL Cholesterol Reference Range: Low Risk >=60 High Risk <40 LDL Cholesterol Reference Range: Optimal<100 Near Dsprgsu796-450 Yuhfdhaxex434-095 Zgxd682-920 Very High >=190 Performing Organization Address City/State/Zipcode Phone Number [address] [address] [facility] * Comprehensive metabolic panel (01/18/2018 7:24 AM CDT) Protein, Total 10.0 (H) 6.0 - 8.3 gm/dL [facility] Albumin 4.6 3.5 - 5.0 g/dL [facility] Alkaline Phosphatase 303 (H) 40 - 150 U/L [facility] Total Bilirubin 0.6 0.2 - 1.2 mg/dL [facility] Sodium 136 136 - 145 meq/L [facility] Potassium 4.0 3.5 - 5.1 meq/L [facility] Chloride 90 (L) 98 - 107 meq/L [facility] CO2 30 (H) 22 - 29 meq/L [facility] BUN 23 (H) 7 - 21 mg/dL [facility] Creatinine 7.23 (H) 0.57 - 1.25 mg/dL [facility] Glucose 87 70 - 105 mg/dL [facility] Calcium 10.2 8.4 - 10.2 mg/dL [facility] AST 16 5 - 34 U/L [facility] ALT 15 6 - 55 U/L [facility] EGFR 9Comment: ESTIMATED GFR IS NOT mL/min/1.73 sq m [facility] ACCURATE CREATININE [facility] CLEARANCE IN PREDICTING GLOMERULAR FILTRATION RATE. ESTIMATED GFR IS NOT APPLICABLE FOR DIALYSIS PATIENTS. Specimen Blood Performing Organization Address City/State/Zipcode Phone Number [facility] [address] [place] [address] [facility] after 12/27/2017 Insurance Payer Benefit Subscriber ID Type Phone Address Plan / Group MEDICARE MEDICARE A xxxxxxxxxx Medicare B MEDICAID MEDICAID xxxxxxxxx Medicaid OF [place] Advance Directives For more information, please contact: [facility] [address] [place] [address] Date Inactivated Comments Code Status Date Activated [...]
[2018-12-28] MEDS ORDERED: ONDANSETRON HCL 4 MG ORAL DISINTEGRATING TAB PO STA (20:45)
[2018-12-28] MEDS ORDERED: ONDANSETRON HCL INJ 2MG/ML 2ML 2 MG/ML VIAL ONE (21:11)
== END 2018-12-28 22:09 | disposition home or self-care (01) ==
LOC: FSED 20:28
DX: R11.2 Nausea with vomiting, unspecified (principal); I50.9 Heart failure, unspecified; I12.0 Hypertensive chronic kidney disease with stage 5 chronic kidney disease or end stage renal disease; N18.6 End stage renal disease; Z99.2 Dependence on renal dialysis; M32.9 Systemic lupus erythematosus, unspecified
CPT/HCPCS: 80048; 80076; 85025; 93005; 99283; J2405; Q0162

== ENCOUNTER 2019-01-14 06:18 | Inpatient (IN) | payer MEDICARE, OTHER ==
[~2019-01-14] VITALS: Ht 190.5 cm; Wt 103.9 kg
--- OUTSIDE RECORDS SUMMARY | 2019-01-14 06:21 | XMS REPORT | Clinical Summary ---
Author Author JEANNINE [facility] Address Unknown Phone Unavailable Care Team Providers Care Sanding Machine Operator Or Tender Name Role Phone RizviMario horner Evitachhaya PCP [...] by mouth 2 (two) times daily. 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 Crane ,Dr. Bowles, AVF SLE [...] II, MD 01/17/2018 Outside Orders Radiology after 01/13/2018 Immunizations Name Dates Previously Given Next Due [...] Lot Implanted Type Area Manufactur er 05/25/2017 [id number] / / [id number] Sealr Hemstat Coseal 8ml [id number] - Cement/Freedom N/A: Chest KEENE:MED [id number] ler/Adhesi DEL Implanted: Qty: 1 on 12/27/2016 by Candelario Loyola 01/23/2019 [id number] / / [id number] Patch Vasc [place] 1.65mm 1x6in Graft/Patc N/A: Chest CR [id number] - [id number] BARD:PERIP Implanted: Qty: 1 on 12/27/2016 by HERAL Beau Holt MD 08/26/2020 HVA-L / ID:[id number] / Cryo.Aortic Valve Tissue N/A: Chest LIFENET Implanted: Qty: 1 on 12/27/2016 by Graft/Subs Beau Cross MD titute 04/19/2021 [id number] / PN [id number] / [id number] Patch Periph Vascu-Grd 2x9cm Tissue N/A: Chest SYNOVIS [id number] - Spn [id number] Graft/Subs LIFE Implanted: Qty: 1 on 12/27/2016 by titute TECH:SURG Beau Cross MD INNOV 11/17/2017 [id number]-25A / [id number] / Valve Tiss Trifecta W/Gld 25a Valves N/A: Heart ST ROBI Tfgt-25a - [id number] MED:CARDIA Implanted: Qty: 1 on 03/04/2016 by C Beto Aldridge MD Explanted: 10/24/2019 [id number] / / [id number] Ring Semiflex 30mm Mounted [id number] Valves N/A: Heart MEDTRONIC: - [id number] STRUCTURAL Implanted: Qty: 1 on 12/27/2016 by HEART Beau Cross MD Procedures Comments Procedure Name Priority Date/Time Associated Diagnosis TRANSFUSE LEUKO-REDUCED Routine 08/02/2018 PLATELETS 5:21 PM ELECTRONIC OPERATOR TRANSFUSE LEUKO-REDUCED Routine 08/02/2018 PLATELETS 5:21 PM ELECTRONIC OPERATOR TRANSFUSE LEUKO-REDUCED Routine 08/02/2018 RED BLOOD CELLS 5:21 PM ELECTRONIC OPERATOR TRANSFUSE LEUKO-REDUCED Routine 08/02/2018 RED BLOOD CELLS 5:21 PM ELECTRONIC OPERATOR TRANSFUSION SERVICE 01/19/2018 REPORT - SCAN 5:54 [...] Pre-transplant evaluation for chronic kidney disease after 01/13/2018 Results * Transfuse Leuko-Red PLT (08/02/2018 5:21 PM ELECTRONIC OPERATOR) Only the most recent of 4 results within the time period is included. * Transfuse Leuko-Red RBC (08/02/2018 5:21 PM ELECTRONIC OPERATOR) Only the most recent of 2 results within the time period is included. * TRANSFUSION SERVICE REPORT - SCAN (01/19/2018 5:54 PM CDT) Narrative Performed At * Ultrasound abdomen complete (01/18/2018 11:14 AM CDT) Specimen Narrative Performed At FINAL REPORT Ratio Ultrasound of the Abdomen, complete Clinical History:Renal [...] MD Report Verified Date/Time:01/18/2018 14:26:38 Reading Location: [address] Radiology Reading Room Procedure Note Interface, [...] Report Verified Date/Time: 01/18/2018 14:26:38 Reading Location: [address] Radiology Reading Room Performing Organization Address City/State/Zipcode Phone Number Ratio * XR chest 2 views (01/18/2018 9:39 AM CDT) Specimen Narrative Performed At FINAL REPORT Ratio Chest, two views HISTORY: Renal transplant evaluation [...] MD Report Verified Date/Time:01/18/2018 09:41:39 Reading Location: [address] Radiology Reading Room Procedure Note Interface, [...] Report Verified Date/Time: 01/18/2018 09:41:39 Reading Location: [address] Radiology Reading Room Performing Organization Address City/State/Zipcode Phone Number GE RIS * ECG 12 lead (01/18/2018 8:20 AM CDT) Specimen Narrative Performed At Ventricular Rate 86 BPM GE MUSE Atrial Rate 86 BPM P-R Interval 224 ms QRS Duration 144 ms Q-T Interval 428 ms QTC Calculation(Bazett) 512 ms P [place] 43 degrees R [place] -27 degrees T [place] 67 degrees Sinus rhythm with 1st degree [...] 428 ms QTC Calculation(Bazett) 512 ms P [place] 43 degrees R [place] -27 degrees T [place] 67 degrees Sinus rhythm with 1st degree A-V block Right bundle branch block Abnormal ECG When compared with ECG of 10-JAN-2017 05:56, T wave inversion no longer evident in Anterior leads Confirmed by Tony Nunez ([id number]) on 01/18/2018 7:08:33 PM Performing Organization Address City/[facility] Phone Number GE MUSE * HLA TYPING CII (01/18/2018 7:24 AM CDT) HLA-DR AG1 4 [facility] HLA-DR AG2 7 [facility] HLA-DR AG3-1 [facility] HLA-DR AG3-2 [facility] HLA-DR AG4-1 53 [facility] HLA-DR AG4-2 53 [facility] HLA-DR AG5-1 [facility] HLA-DR AG5-2 [facility] HLA-DQA1 AG 1-1 03 [facility] HLA-DQA1 AG 1-2 02 [facility] HLA-DQB1 AG 1-1 8 [facility] HLA-DQB1 AG 1-2 2 [facility] HLA-DPA1 AG 1-1 01 [facility] HLA-DPA1 AG 1-2 01 [facility] HLA-DPB1 AG 1-1 04:01 [facility] HLA-DPB1 AG 1-2 04:02 [facility] HLA-AG Notes [facility] HLA-AG Report Comments [facility] Specimen Blood Narrative Performed At Disclaimer: [facility] This test was developed and its performance characteristics determined by the [facility] Laboratory. It has not been cleared or [...] complexity clinical laboratory testing. Performing Organization Address City/[facility] Phone Number [facility] ONE [facility] Julius, MS: [id number], [place] [address] CLIA#[id number] CAP#[id number] UNOS#[id number] * HLA TYPING CI (01/18/2018 7:24 AM CDT) HLA-A AG1 2 [facility] HLA-A AG2 3 [facility] HLA-B AG1 48 [facility] HLA-B AG2 51 [facility] HLA-C AG1 8 [facility] HLA-C AG2 16 [facility] HLA-B BW1 6 [facility] HLA-B BW2 4 [facility] HLA-AG Notes [facility] HLA-AG Report Comments [facility] Specimen Blood Narrative Performed At Disclaimer: [facility] This test was developed and its performance characteristics determined by the [facility]. It has not been cleared or [...] complexity clinical laboratory testing. Performing Organization Address City/[facility] Phone Number [facility] ONE Omar [place], MS: [id number], [place] [id number] CLIA#[id number] CAP#[id number] UNOS#[id number] * FLOW PRA CLASS II WITH REFLEX TO ANTIBODY SPECIFICITY (01/18/2018 7:24 AM CDT) Flow Class II Percent 85 [facility] Positive Flow Class Report [facility] Comments Specimen Blood Narrative Performed At Disclaimer: [facility] This test was developed and its performance characteristics determined by the [facility]. It has not been cleared or [...] complexity clinical laboratory testing. Performing Organization Address City/State/[facility] Phone Number [facility] ONE Omar [place], MS: [id number], [place] [address] CLIA#[id number] CAP#[id number] UNOS#[id number] * FLOW PRA CLASS I WITH REFLEX TO ANTIBODY SPECIFICITY (01/18/2018 7:24 AM CDT) Flow Class I Percent 92 [facility] Positive Flow Class Report [facility] Comments Specimen Blood Narrative Performed At Disclaimer: [facility] This test was developed and its performance characteristics determined by the [facility]. It has not been cleared or [...] complexity clinical laboratory testing. Performing Organization Address City/[facility] Phone Number [facility] ONE Omar [place], MS: [id number], [place] [id number] CLIA#[id number] CAP#[id number] UNOS#[id number] * AB SPECIFICITY CLASS II (01/18/2018 7:24 AM CDT) AB Specificity Class II DR:8 11 12 13 14 17 18 [facility] DRw:52 DQ:7 DQA:05:05 05:01 05:03 06:01 DP:1 3 5 6 9 10 11 13 14 17 19 20 DPA:02:01 02:02 03:01 AB Specificity Titr Class MFIs > 4000 [facility] Report Specimen Blood Narrative Performed At Disclaimer: [facility] This test was developed and its performance characteristics determined by the [facility]. It has not been cleared or [...] complexity clinical laboratory testing. Performing Organization Address City/[facility] Phone Number [facility] ONE Omar [place], MS: [id number], [place] [address] CLIA#[id number] CAP#[id number] UNOS#[id number] * AB SPECIFICITY CLASS I (01/18/2018 7:24 AM CDT) AB Specificity Class I A:1 11 23 24:02 25 26 29 34 36 [facility] 43 66:01 80 B:8 13 18 27:05 37 41 44 45 47 49 50 59 60 61 73 76 82 Cw:4 5 6 7 18 AB Specificity Titr Class MFIs > 4000 [facility] Report Specimen Blood Narrative Performed At Disclaimer: [facility] This test was developed and its performance characteristics determined by the [facility]. It has not been cleared or [...] testing. Performing Organization Address City/State/Zipcode Phone Number [facility] ONE Omar [place], MS: [id number], [place] [address] CLIA#[id number] CAP#[id number] UNOS#[id number] * T Spot TB (01/18/2018 7:24 AM CDT) T-Spot TB Negative [facility] Neg Ctrl Spot Count 0 [facility] Panel A Spot 1 [facility] Panel B Spot 1 [facility] Pos Ctrl Spot Ct 0 [facility] Scan Result [facility] Specimen Blood Narrative Performed At Performing Organization Address City/State/Zipcode Phone Number [facility] [address] [place] [address] LABORATORIES 100 * PT/aPTT (01/18/2018 7:24 AM CDT) Protime 16.6 (H) 11.7 - 14.7 seconds [facility] INR 1.3 <=5.9 [facility] PTT 62.5 (H) 22.5 - 36.0 seconds [facility] Specimen Blood Narrative Performed At RECOMMENDED COUMADIN/WARFARIN INR THERAPY RANGES [facility] STANDARD DOSE: 2.0 - 3.0 Includes: PROPHYLAXIS for venous thrombosis, [facility] systemic embolization; TREATMENT for venous thrombosis and/or pulmonary embolus. HIGH RISK: Target INR is 2.5-3.5 for patients with mechanical heart valves. Performing Organization Address City/State/Zipcode Phone Number [facility] [address] [place] [address] [facility] * HIV-1 Antigen with HIV-1/2 Antibody (01/18/2018 7:24 AM CDT) HIV-1 Antigen with HIV Nonreactive Nonreactive [facility] 1&2 Antibody [facility] Specimen Blood Performing Organization Address City/[facility]/Zipcode Phone Number [facility] [address] [place] [address] [facility] * 1:1 MIXING STUDY, NON-INCUBATED (01/18/2018 7:24 AM CDT) Protime 16.0 (H) 11.7 - 14.7 seconds [facility] PTT 55.3 (H) 22.5 - 36.0 seconds [facility] PT 06/26 Mix 14.6 11.7 - 14.7 SECS [facility] PTT 06/26 Mix 37.2 (H) 22.5 - 36.0 SECS [facility] Specimen Blood Performing Organization Address City/[facility]/Zipcode Phone Number [facility] [address] [place] [address] [facility] * CBC with platelet count + automated diff (01/18/2018 7:24 AM CDT) WBC 9.6 3.5 - 10.5 K/L [facility] RBC 4.35 (L) 4.63 - 6.08 M/L [facility] Hemoglobin 12.1 (L) 13.7 - 17.5 GM/DL [facility] Hematocrit 39.5 (L) 40.1 - 51.0 % [facility] MCV 90.8 79.0 - 92.2 fL [facility] MCH 27.8 25.7 - 32.2 pg [facility] MCHC 30.6 (L) 32.3 - 36.5 GM/DL [facility] RDW 16.0 (H) 11.6 - 14.4 % [facility] Platelets 252 150 - 450 K/CU MM [facility] MPV 9.5 9.4 - 12.4 fL [facility] nRBC 0 0 - 0 /100 WBC [facility] % Neutros 70 % [facility] % Lymphs 16 % [facility] % Monos 9 % [facility] % Eos 4 % [facility] % Baso 0 % [facility] # Neutros 6.69 (H) 1.78 - 5.38 K/L [facility] # Lymphs 1.53 1.32 - 3.57 K/L [facility] # Monos 0.88 (H) 0.30 - 0.82 K/L [facility] # Eos 0.40 0.04 - 0.54 K/L [facility] # Baso 0.04 0.01 - 0.08 K/L [facility] Immature 1 0 - 1 % [facility] Granulocytes-Relative [facility] Specimen Blood Performing Organization Address City/[facility]/[place] [address] [phone] [place] [address] * Hepatitis C Antibody (01/18/2018 7:24 AM CDT) Hepatitis C Ab Nonreactive Nonreactive [facility] Specimen Blood Performing Organization Address City/[facility]/Zipcode Phone Number [address] [address] [facility] * Cytomegalovirus antibody, IgM (01/18/2018 7:24 AM CDT) CMV IGM Negative Negative, Equivocal [facility] Specimen Blood Narrative Performed At CMV IgM Result Interpretation: [facility] </=0.8 Al Negative [facility] 0.9-1.0 Al [facility] >/=1.1 Al Positive Performing Organization Address City/[facility]/Zipcode Phone Number [address] * Double-Stranded DNA (dsDNA) Antibody (01/18/2018 7:24 AM CDT) ds DNA Ab Negative [facility] Specimen Blood Performing Organization Address City/[facility] Phone Number [address] * Hepatitis B core antibody, IgM (01/18/2018 7:24 AM CDT) Hep B C IgM Nonreactive Nonreactive [facility] Specimen Blood Performing Organization Address [facility] Phone Number [address] * EBV-VCA antibody, IgM (01/18/2018 7:24 AM CDT) OMER PENDLE[place] VIRAL CAPSID Negative Negative, Equivocal [facility] ANTIGEN IGM [facility] Specimen Blood Narrative Performed At Omer Pendleton Viral Capsid Antigen IgM Result Interpretation: [facility] </=0.8 Al Negative [facility] 0.9-1.0 Al Equiv[facility] >/=1.1 Al Positive Performing Organization Address [facility] Phone Number [address] * EBV-VCA antibody, IgG (01/18/2018 7:24 AM CDT) OMER PENDLETON VIRAL CAPSID Positive (A) Negative, Equivocal [facility] ANTIGEN IGG [facility] Specimen Blood Narrative Performed At Omer Pendleton Viral Capsid Antigen IgG Result Interpretation: [facility] </=0.8 Al Negative [facility] 0.9-1.0 Al [facility]iv[facility] >/=1.1 Al Positive Performing Organization Address City/[facility] Phone Number [place] [phone] [place] [address] * Blood typing, automated (01/18/2018 7:24 AM CDT) ABO/RH AUTOMATED (BEAKER) O POSITIVE [facility] Specimen Blood Performing Organization Address [facility] Phone Number [address] * RPR (01/18/2018 7:24 AM CDT) RPR Nonreactive Nonreactive [facility] Specimen Blood Performing Organization Address [facility] Phone Number [address] * Hepatitis B surface antibody (01/18/2018 7:24 AM CDT) Hep B S Ab <8.0 <8.0 mIU/mL [facility] Specimen Blood Performing Organization Address [facility] Phone Number [address] * Hepatitis B surface antigen (01/18/2018 7:24 AM CDT) hepatitis B Surface Ag Nonreactive Nonreactive [facility] Specimen Blood Performing Organization Address [facility] Phone Number [address] * Cytomegalovirus antibody, IgG (01/18/2018 7:24 AM CDT) CYTOMEGALOVIRUS, IGG Positive (A) Negative, Equivocal [facility] Specimen Blood Narrative Performed At CMV IgG Result Interpretation: [facility] </=0.8 Al Negative [facility] 0.9-1.0 Al Equivocal >/=1.1 AlPositive Performing Organization Address [facility] Phone Number [address] * Cardiolipin Antibodies, IgG and IgM (01/18/2018 7:24 AM CDT) Anticardiolipin IgG 3.3 <20.0 GPL [facility] Anticardiolipin IgM 0.9 <20.0 MPL [facility] Specimen Blood Narrative Performed At Anticardiolipin IgG Result Interpretation: [facility] <20.0 GPL Normal [facility] >/=20.0 GPL Positive Anticardiolipin IgM Result Interpretation: <20.0 MPL Normal >/=20.0 MPL Positive Performing Organization Address [facility] Phone Number [address] * Direct AHG (KOREY)/Direct Ciara (01/18/2018 7:24 AM CDT) Direct AHG-IGG NEGATIVE [facility] Direct AHG-C3B, C3D NEGATVIE [facility] Specimen Blood Performing Organization Address [facility] Phone Number [address] * Varicella Zoster Antibody, IgG (01/18/2018 7:24 AM CDT) Varicella IgG >8.0 [facility] Specimen Blood Narrative Performed At VARICELLA ZOSTER RESULT INTERPRETATIONS: [facility] <=0.8 AlNonreactive:Presumed non-immune to VZV [facility] 0.9-1.0 AlEquivocal >=1.1 AlReactive:Presumed immune to VZV Performing Organization Address [facility] [place] [address] [phone] [place] [address] * Complement Component C3 (01/18/2018 7:24 AM CDT) C3 Complement 190 82 - 193 mg/dL [facility] Specimen Blood Performing Organization Address [facility] [place] [address] [phone] [place] [address] * Complement Component C4 (01/18/2018 7:24 AM CDT) C4 Complement 34 15 - 57 mg/dL [facility] Specimen Blood Performing Organization Address City/[facility] Phone Number [address] [address] [phone] [place] [address] * Uric Acid (01/18/2018 7:24 AM CDT) Uric Acid 3.8 2.6 - 7.2 mg/dL [facility] Specimen Blood Performing Organization Address City/[facility] Phone Number [address] [address] [facility] * Phosphorus (01/18/2018 7:24 AM CDT) Phosphorus 5.4 (H) 2.3 - 4.7 mg/dL [facility] Specimen Blood Performing Organization Address [facility] Phone Number [place] [phone] [place] [address] * PTH, Intact (01/18/2018 7:24 AM CDT) PTH 753.2 (H) 8.5 - 72.5 pg/mL [facility] Specimen Blood Performing Organization Address [facility] Phone Number [address] [address] [facility] * Lactate Dehydrogenase (LDH) (01/18/2018 7:24 AM CDT) LDH 211 125 - 220 U/L [facility] Specimen Blood Performing Organization Address City/[facility] Phone Number [address] [address] [facility] * Hemoglobin A1c (01/18/2018 7:24 AM CDT) Hemoglobin A1C 5.3 4.3 - 6.1 % [facility] Specimen Blood Performing Organization Address City/[facility] Phone Number [address] [address] [phone] * Gamma Glutamyl Transferase (GGT) (01/18/2018 7:24 AM CDT) GGT 56 9 - 64 U/L [facility] Specimen Blood Performing Organization Address City/[facility] Phone Number [place] [phone] * Lipid panel (01/18/2018 7:24 AM CDT) Triglycerides 76 mg/dL [facility] Cholesterol 128 mg/dL [facility] HDL 41 mg/dL [facility] LDL Calculated 72 mg/dL [facility] Specimen Blood Narrative Performed At Triglyceride Reference Range: [facility] Low Risk <150 [facility] [id number] High Risk 200-499 Very High Risk>=500 Cholesterol Reference Range: Low Risk <200 Fyomftdtwh178-261 High Risk>240 HDL Cholesterol Reference Range: Low Risk >=60 High Risk <40 LDL Cholesterol Reference Range: Optimal<100 Near [id number] Afaaqnrjoj249-978 Ffdy865-185 Very High >=190 Performing Organization Address City/State/Zipcode Phone Number [address] * Comprehensive metabolic panel (01/18/2018 7:24 AM CDT) Protein, Total 10.0 (H) 6.0 - 8.3 gm/dL [facility] Albumin 4.6 3.5 - 5.0 g/dL [facility] Alkaline Phosphatase 303 (H) 40 - 150 U/L [facility] Total Bilirubin 0.6 0.2 - 1.2 mg/dL [facility] Sodium 136 136 - 145 meq/L [facility] Potassium 4.0 3.5 - 5.1 meq/L [facility] Chloride 90 (L) 98 - 107 meq/L [facility] CO2 30 (H) 22 - 29 meq/L [facility] BUN 23 (H) 7 - 21 mg/dL [facility] Creatinine 7.23 (H) 0.57 - 1.25 mg/dL [facility] Glucose 87 70 - 105 mg/dL [facility] Calcium 10.2 8.4 - 10.2 mg/dL [facility] AST 16 5 - 34 U/L [facility] ALT 15 6 - 55 U/L [facility] EGFR 9Comment: ESTIMATED GFR IS NOT mL/min/1.73 sq m [facility] ACCURATE CREATININE [facility] CLEARANCE IN PREDICTING GLOMERULAR FILTRATION RATE. ESTIMATED GFR IS NOT APPLICABLE FOR DIALYSIS PATIENTS. Specimen Blood Performing Organization Address City/State/Zipcode Phone Number [address] [phone] [facility] after 01/13/2018 Insurance Payer Benefit Subscriber ID Type Phone Address Plan / Group MEDICARE MEDICARE A xxxxxxxxxx Medicare B MEDICAID MEDICAID xxxxxxxxx Medicaid OF [place] Advance Directives For more information, please contact: [address] [id number] Date Inactivated Comments Code Status Date Activated [...]
[2019-01-14] MEDS ORDERED: SODIUM CHLORIDE 0.9% 250ML 250 ML IV ONE (07:45)
[2019-01-14] MEDS ORDERED: ONDANSETRON HCL INJ 2MG/ML 2ML 2 MG/ML VIAL IV ONE (08:00)
[2019-01-14] MEDS ORDERED: MORPHINE SULFATE 2 MG/ML SYR 1ML IV ONE (08:00)
[2019-01-14 08:19] LABS: BASOPHILS % 0.4 % (0.0-1.0); EOSINOPHILS # (AUTO) 0.3 (0.0-0.4); EOSINOPHILS % 2.6 % (0.0-6.0); HEMOGLOBIN 12.7 g/dL (14.0-18.0); LYMPHOCYTES # (AUTO) 1.4 (1.0-3.2); MEAN CORPUSCULAR HEMOGLOBIN 33.4 pg (28-32); MEAN CORPUSCULAR HGB CONC 35.3 g/dL (31-35); MEAN CORPUSCULAR VOLUME 94.7 fL (81-99); MONOCYTES # (AUTO) 0.8 (0.2-0.8); MONOCYTES % 6.8 % (4.4-11.3); NEUTROPHILS # (AUTO) 8.5 (2.1-6.9); NEUTROPHILS % 76.7 % (38.7-80.0); PLATELET COUNT 165 x10e3/uL (140-360)
[2019-01-14 08:39] LABS: ALBUMIN 3.5 g/dL (3.5-5.0); ALBUMIN/GLOBULIN RATIO 0.9 (0.8-2.0); ANION GAP 20.6 mmol/L (8-16); CALCIUM 8.5 mg/dL (8.4-10.2); CREATININE, SERUM 11.14 mg/dL (0.72-1.25); POTASSIUM 4.6 mmol/L (3.5-5.1)
[2019-01-14 08:43] LABS: CREATINE KINASE MB 1.4 ng/mL (0-5.0)
[2019-01-14 08:47] LABS: BILIRUBIN,URINE NEGATIVE (NEGATIVE); CLARITY,URINE CLEAR (CLEAR); COLOR,URINE YELLOW (YELLOW); KETONES,URINE NEGATIVE (NEGATIVE); LEUKOCYTE ESTERASE ,URINE NEGATIVE (NEGATIVE); NITRITE,URINE NEGATIVE (NEGATIVE); PROTEIN,URINE DIPSTICK 2+ (NEGATIVE); URINE UROBILINOGEN 0.2 mg/dL (0.2 - 1)
[2019-01-14 08:55] LABS: INR 0.96; PROTHROMBIN TIME 13.3 seconds (11.9-14.5)
[2019-01-14 08:56] LABS: PARTIAL THROMBOPLASTIN TIME 46.9 seconds (23.8-35.5)
[2019-01-14 09:04] LABS: BACTERIA,URINE FEW /HPF; EPITHELIAL CELLS,URINE FEW /LPF; RBC,URINE 0-5 /HPF (0-5); WBC,URINE (MAN) 0-5 /HPF (0-5)
--- NOTE | 2019-01-14 09:17 | Diagnostic Imaging Report ---
EXAM: CT Abdomen and Pelvis WITHOUT intravenous contrast INDICATION: Abdominal pain COMPARISON: Chest CT of 11/16/2018 TECHNIQUE: Abdomen and pelvis were scanned utilizing a multidetector helical scanner from the lung base to the pubic symphysis without administration of IV contrast. Coronal and sagittal reformations were obtained. IV CONTRAST: None ORAL CONTRAST: None COMPLICATIONS: None RADIATION DOSE: Total DLP: 800.61 mGy*cm Dose modulation, iterative reconstruction, and/or weight based adjustment of the mA/kV was utilized to reduce the radiation dose to as low as reasonably achievable. FINDINGS: LOWER THORAX: Areas of subpleural linear opacity likely represents subsegmental atelectasis. More focal nodular components along the posterior right lower lobe measure up to 2.5 cm and appear unchanged from 11/16/2018. Trace left pleural effusion. Atherosclerotic calcifications of the coronary arteries. Status post median sternotomy. HEPATOBILIARY: No focal hepatic lesions. Status post cholecystectomy. SPLEEN: No splenomegaly. PANCREAS: No focal masses or ductal dilatation. ADRENALS: No adrenal nodules. KIDNEYS/URETERS: Atrophic [place] kidneys. No calculi or hydronephrosis. PELVIC ORGANS/BLADDER: Unremarkable. PERITONEUM / RETROPERITONEUM: Trace free fluid in the pelvis. LYMPH NODES: No lymphadenopathy. VESSELS: Diffuse atherosclerotic calcifications of the major branches of the aorta. GI TRACT: Sigmoid colonic diverticulosis with focal area of wall thickening along the lateral aspect of the proximal sigmoid colon associated with adjacent fat stranding and trace free fluid. No focal drainable fluid collection. No extraluminal air. BONES AND SOFT TISSUES: Degenerative changes of the visualized spine. Anterior compression fracture at T11, unchanged from 11/16/2018. IMPRESSION: Uncomplicated sigmoid diverticulitis. No extraluminal air or diverticular abscess. Trace free fluid in the pelvis. Subpleural linear opacities at the left lung base and more focal nodular component along the posterior right lower lobe likely represent subsegmental atelectasis and appear unchanged from 11/16/2018. Atrophic kidneys. No hydronephrosis or renal calculi. Signed by: Willie Dwyer MD on 01/14/2019 9:14 AM
[2019-01-14] MEDS: METRONIDAZOLE 500MG/NS 100ML 100 ML IV SCH ×3 (10:00→22:48)
[2019-01-14] MEDS ORDERED: ONDANSETRON HCL INJ 2MG/ML 2ML 2 MG/ML VIAL IV PRN (10:00)
[2019-01-14] MEDS ORDERED: MORPHINE SULFATE 2 MG/ML SYR 1ML IV PRN (10:00)
[2019-01-14] MEDS: PIPERACILLIN/TAZO 2.25 GM 50 ML IV SCH ×2 (10:02→21:25)
[2019-01-14] MEDS ORDERED: MORPHINE SULFATE INJ 4 MG/ML INJ 1ML IV PRN (10:15)
--- OUTSIDE RECORDS SUMMARY | 2019-01-14 10:18 | XMS REPORT | Clinical Summary ---
Author Author JEANNINE [facility] Address Unknown Phone Unavailable Care Team Providers Care Sales Engineering Manager Name Role Phone RizviMario horner Evitachhaya PCP [...] by mouth 2 (two) times daily. 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 Crane ,Dr. Bowles, AVF SLE (systemic lupus erythematosus) 03/11/2016 HTN (hypertension) 03/11/2016 Acid reflux 03/11/2016 Aortic stenosis 02/25/2016 Overview: s/p AVR on 03/04/16 and Redo on 12/27/16 Hypertension Encounters Care Team Description Date Type Specialty Jeana El II, MD 01/18/2018 Evaluation Transplant Jeana El II, MD Yao, June, MD ESRD (end stage renal disease) (HCC) (Primary Dx) 01/18/2018 Evaluation Transplant Jaena El II, MD Systemic lupus erythematosus with endocarditis, unspecified SLE type (HCC); ESRD (end stage renal disease) (HCC); Essential hypertension; Pre-transplant evaluation for chronic kidney disease 01/18/2018 Hospital Radiology Encounter Jeana El II, MD Systemic lupus erythematosus with endocarditis, unspecified SLE type (HCC); ESRD (end stage renal disease) (HCC); Essential hypertension; Pre-transplant evaluation for chronic kidney disease 01/18/2018 Hospital Encounter Jeana lE II, MD Systemic lupus erythematosus with endocarditis, [...] Lot Implanted Type Area Manufactur er 05/25/2017 [id number] / / [id number] Sealr Hemstat Coseal 8ml [id number] - Cement/Freedom N/A: Chest KEENE:MED [id number] ler/Adhesi DEL Implanted: Qty: 1 on 12/27/2016 by Candelario Loyola 01/23/2019 [id number] / / [id number] Patch Vasc [place] 1.65mm 1x6in Graft/Patc N/A: Chest CR [id number] - [id number] BARD:PERIP Implanted: Qty: 1 on 12/27/2016 by HERAL Beau Holt MD 08/26/2020 HVA-L / ID:[id number] / Cryo.Aortic Valve Tissue N/A: Chest LIFENET Implanted: Qty: 1 on 12/27/2016 by Graft/Subs Beau Cross MD titute 04/19/2021 [id number] / PN [id number] / [id number] Patch Periph Vascu-Grd 2x9cm Tissue N/A: Chest SYNOVIS [id number] - Spn [id number] Graft/Subs LIFE Implanted: Qty: 1 on 12/27/2016 by titute TECH:SURG Beau Cross MD INNOV 11/17/2017 TFGT-25A / [id number] / Valve Tiss Trifecta W/Gld 25a Valves N/A: Heart ST ROBI Tfgt-25a - [id number] MED:CARDIA Implanted: Qty: 1 on 03/04/2016 by C Beto Aldridge MD Explanted: 10/24/2019 [id number] / / [id number] Ring Semiflex 30mm Mounted [id number] Valves N/A: Heart MEDTRONIC: - [id number] STRUCTURAL Implanted: Qty: 1 on 12/27/2016 by HEART Beau Cross MD Procedures Comments Procedure Name Priority Date/Time Associated Diagnosis TRANSFUSE LEUKO-REDUCED Routine 08/02/2018 PLATELETS 5:21 PM PRECISION HONING MACHINE OPERATOR TRANSFUSE LEUKO-REDUCED Routine 08/02/2018 PLATELETS 5:21 PM PRECISION HONING MACHINE OPERATOR TRANSFUSE LEUKO-REDUCED Routine 08/02/2018 RED BLOOD CELLS 5:21 PM PRECISION HONING MACHINE OPERATOR TRANSFUSE LEUKO-REDUCED Routine 08/02/2018 RED BLOOD CELLS 5:21 PM PRECISION HONING MACHINE OPERATOR TRANSFUSION SERVICE 01/19/2018 REPORT - SCAN [...] * Transfuse Leuko-Red PLT (08/02/2018 5:21 PM PRECISION HONING MACHINE OPERATOR) Only the most recent of 4 results within the time period is included. * Transfuse Leuko-Red RBC (08/02/2018 5:21 PM PRECISION HONING MACHINE OPERATOR) Only the most recent of 2 results within the time period is included. * TRANSFUSION SERVICE REPORT - SCAN (01/19/2018 5:54 PM CDT) Narrative Performed At * Ultrasound abdomen complete (01/18/2018 11:14 AM CDT) Specimen Narrative Performed At FINAL REPORT [facility] Ultrasound of the Abdomen, complete Clinical History:Renal [...] MD Report Verified Date/Time:01/18/2018 14:26:38 Reading Location: [address] Radiology Reading Room Procedure Note Interface, [...] Report Verified Date/Time: 01/18/2018 14:26:38 Reading Location: [address] Radiology Reading Room Performing Organization Address City/State/Zipcode Phone Number [facility] * XR chest 2 views (01/18/2018 9:39 AM CDT) Specimen Narrative Performed At FINAL REPORT [facility] Chest, two views HISTORY: Renal transplant evaluation [...] MD Report Verified Date/Time:01/18/2018 09:41:39 Reading Location: [address] Radiology Reading Room Procedure Note Interface, [...] Report Verified Date/Time: 01/18/2018 09:41:39 Reading Location: [address] Radiology Reading Room Performing Organization Address City/State/Zipcode Phone Number GE [facility]IS * ECG 12 lead (01/18/2018 8:20 AM CDT) Specimen Narrative Performed At Ventricular Rate 86 BPM GE MUSE Atrial Rate 86 BPM P-R Interval 224 ms QRS Duration 144 ms Q-T Interval 428 ms QTC Calculation(Bazett) 512 ms P [place] 43 degrees R [place] -27 degrees T [place] 67 degrees Sinus rhythm with 1st degree [...] 428 ms QTC Calculation(Bazett) 512 ms P [place] 43 degrees R [place] -27 degrees T [place] 67 degrees Sinus rhythm with 1st degree A-V block Right bundle branch block Abnormal ECG When compared with ECG of 10-JAN-2017 05:56, T wave inversion no longer evident in Anterior leads Confirmed by Tony Nunez ([id number]) on 01/18/2018 7:08:33 PM Performing Organization Address City/[facility] Phone Number [facility] * HLA TYPING CII (01/18/2018 7:24 AM CDT) HLA-DR AG1 4 [facility] HLA-DR AG2 7 [facility] HLA-DR AG3-1 [facility] HLA-DR AG3-2 [facility] HLA-DR AG4-1 53 [facility] HLA-DR AG4-2 53 [facility] HLA-DR AG5-1 [facility] HLA-DR AG5-2 [facility] HLA-DQA1 AG 1-1 03 [facility] HLA-DQA1 AG 1-2 02 [facility] HLA-DQB1 AG 1-1 8 [facility] HLA-DQB1 AG 1-2 2 [facility] HLA-DPA1 AG 1-1 01 [facility] HLA-DPA1 AG 1-2 01 [facility] HLA-DPB1 AG 1-1 04:01 [facility] HLA-DPB1 AG 1-2 04:02 [facility] HLA-AG Notes [facility] HLA-AG Report Comments [facility] Specimen Blood Narrative Performed At Disclaimer: [facility] This test was developed and its performance characteristics determined by the [facility] Laboratory. It has not been cleared [...] complexity clinical laboratory testing. Performing Organization Address City/[facility] Centercode Phone Number [facility] ONE [facility] Julius, MS: [id number], [place] [address] CLIA#[id number] CAP#[id number] UNOS#[id number] * HLA TYPING CI (01/18/2018 7:24 AM CDT) HLA-A AG1 2 [facility] HLA-A AG2 3 [facility] HLA-B AG1 48 [facility] HLA-B AG2 51 [facility] HLA-C AG1 8 [facility] HLA-C AG2 16 [facility] HLA-B BW1 6 [facility] HLA-B BW2 4 [facility] HLA-AG Notes [facility] HLA-AG Report Comments [facility] Specimen Blood Narrative Performed At Disclaimer: [facility] This test was developed and its performance characteristics determined by the [facility] Laboratory. It has not been cleared [...] complexity clinical laboratory testing. Performing Organization Address City/[facility] Centercova Phone Number [facility] ONE Omar [place], MS: [id number], [place] [id number] CLIA#[id number] CAP#[id number] UNOS#[id number] * FLOW PRA CLASS II WITH REFLEX TO ANTIBODY SPECIFICITY (01/18/2018 7:24 AM CDT) Flow Class II Percent 85 [facility] Positive Flow Class Report [facility] Comments Specimen Blood Narrative Performed At Disclaimer: [facility] This test was developed and its performance characteristics determined by the [facility] Laboratory. It has not been cleared [...] complexity clinical laboratory testing. Performing Organization Address City/State/[facility]ode Phone Number [facility] ONE Omar [place], MS: [id number], [place] [address] CLIA#[id number] CAP#[id number] UNOS#[id number] * FLOW PRA CLASS I WITH REFLEX TO ANTIBODY SPECIFICITY (01/18/2018 7:24 AM CDT) Flow Class I Percent 92 [facility] Positive Flow Class Report [facility] Comments Specimen Blood Narrative Performed At Disclaimer: [facility] This test was developed and its performance characteristics determined by the [facility] Laboratory. It has not been cleared [...] complexity clinical laboratory testing. Performing Organization Address City/[facility] Phone Number [facility] ONE Omar [place], MS: [id number], [place] [id number] CLIA#[id number] CAP#[id number] UNOS#[id number] * AB SPECIFICITY CLASS II (01/18/2018 7:24 AM CDT) AB Specificity Class II DR:8 11 12 13 14 17 18 [facility] DRw:52 DQ:7 DQA:05:05 05:01 05:03 06:01 DP:1 3 5 6 9 10 11 13 14 17 19 20 DPA:02:01 02:02 03:01 AB Specificity Titr Class MFIs > 4000 [facility] Report Specimen Blood Narrative Performed At Disclaimer: [facility] This test was developed and its performance characteristics determined by the [facility] Laboratory. It has not been cleared [...] complexity clinical laboratory testing. Performing Organization Address City/[facility] Phone Number [facility] ONE Omar [place], MS: [id number], [place] [address] CLIA#[id number] CAP#[id number] UNOS#[id number] * AB SPECIFICITY CLASS I (01/18/2018 7:24 AM CDT) AB Specificity Class I A:1 11 23 24:02 25 26 29 34 36 [facility] 43 66:01 80 B:8 13 18 27:05 37 41 44 45 47 49 50 59 60 61 73 76 82 Cw:4 5 6 7 18 AB Specificity Titr Class MFIs > 4000 [facility] Report Specimen Blood Narrative Performed At Disclaimer: [facility] This test was developed and its performance characteristics determined by the [facility] Laboratory. It has not been cleared [...] testing. Performing Organization Address City/State/Zipcode Phone Number [facility] ONE Omar [place], MS: [id number], [place] [address] CLIA#[id number] CAP#[id number] UNOS#[id number] * T Spot TB (01/18/2018 7:24 AM CDT) T-Spot TB Negative [facility] Neg Ctrl Spot Count 0 [facility] Panel A Spot 1 [facility] Panel B Spot 1 [facility] Pos Ctrl Spot Ct 0 [facility] Scan Result [facility] [place] [place] Specimen Blood Narrative Performed At Performing Organization Address City/State/Zipcode Phone Number [facility] [address] [place] [address] LABORATORIES 100 * PT/aPTT (01/18/2018 7:24 AM CDT) Protime 16.6 (H) 11.7 - 14.7 seconds [facility] INR 1.3 <=5.9 [facility] PTT 62.5 (H) 22.5 - 36.0 seconds [facility] Specimen Blood Narrative Performed At RECOMMENDED COUMADIN/WARFARIN INR THERAPY RANGES [facility] STANDARD DOSE: 2.0 - 3.0 Includes: PROPHYLAXIS for venous thrombosis, [facility] systemic embolization; TREATMENT for venous thrombosis and/or pulmonary embolus. HIGH RISK: Target INR is 2.5-3.5 for patients with mechanical heart valves. Performing Organization Address City/State/Zipcode Phone Number [facility] [address] [place] [address] [facility] * HIV-1 Antigen with HIV-1/2 Antibody (01/18/2018 7:24 AM CDT) HIV-1 Antigen with HIV Nonreactive Nonreactive [facility] 1&2 Antibody [facility] Specimen Blood Performing Organization Address City/[facility]/Zipcode Phone Number [facility] [address] [place] [address] [facility] * 1:1 MIXING STUDY, NON-INCUBATED (01/18/2018 7:24 AM CDT) Protime 16.0 (H) 11.7 - 14.7 seconds [facility] PTT 55.3 (H) 22.5 - 36.0 seconds [facility] PT 06/26 Mix 14.6 11.7 - 14.7 SECS [facility] PTT 06/26 Mix 37.2 (H) 22.5 - 36.0 SECS [facility] Specimen Blood Performing Organization Address City/[facility]/Zipcode Phone Number [facility] [address] [place] [address] [facility] * CBC with platelet count + automated diff (01/18/2018 7:24 AM CDT) WBC 9.6 3.5 - 10.5 K/L [facility] RBC 4.35 (L) 4.63 - 6.08 M/L [facility] Hemoglobin 12.1 (L) 13.7 - 17.5 GM/DL [facility] Hematocrit 39.5 (L) 40.1 - 51.0 % [facility] MCV 90.8 79.0 - 92.2 fL [facility] MCH 27.8 25.7 - 32.2 pg [facility] MCHC 30.6 (L) 32.3 - 36.5 GM/DL [facility] RDW 16.0 (H) 11.6 - 14.4 % [facility] Platelets 252 150 - 450 K/CU MM [facility] MPV 9.5 9.4 - 12.4 fL [facility] nRBC 0 0 - 0 /100 WBC [facility] % Neutros 70 % [facility] % Lymphs 16 % [facility] % Monos 9 % [facility] % Eos 4 % [facility] % Baso 0 % [facility] # Neutros 6.69 (H) 1.78 - 5.38 K/L [facility] # Lymphs 1.53 1.32 - 3.57 K/L [facility] # Monos 0.88 (H) 0.30 - 0.82 K/L [facility] # Eos 0.40 0.04 - 0.54 K/L [facility] # Baso 0.04 0.01 - 0.08 K/L [facility] Immature 1 0 - 1 % [facility] Granulocytes-Relative [facility] Specimen Blood Performing Organization Address City/[facility]/[place] [address] [phone] [place] [address] * Hepatitis C Antibody (01/18/2018 7:24 AM CDT) Hepatitis C Ab Nonreactive Nonreactive [facility] Specimen Blood Performing Organization Address City/[facility]/Zipcode Phone Number [address] [address] [facility] * Cytomegalovirus antibody, IgM (01/18/2018 7:24 AM CDT) CMV IGM Negative Negative, Equivocal [facility] Specimen Blood Narrative Performed At CMV IgM Result Interpretation: [facility] </=0.8 Al Negative [facility] 0.9-1.0 Al Equivocal >/=1.1 Al Positive Performing Organization Address City/[facility]/Zipcode Phone Number [address] * Double-Stranded DNA (dsDNA) Antibody (01/18/2018 7:24 AM CDT) ds DNA Ab Negative [facility] Specimen Blood Performing Organization Address City/[facility] Phone Number [address] * Hepatitis B core antibody, IgM (01/18/2018 7:24 AM CDT) Hep B C IgM Nonreactive Nonreactive [facility] Specimen Blood Performing Organization Address [facility] Phone Number [address] * EBV-VCA antibody, IgM (01/18/2018 7:24 AM CDT) [place]ER [place] VIRAL CAPSID Negative Negative, Equivocal [facility] ANTIGEN IGM [facility] Specimen Blood Narrative Performed At Omer [place] Viral Capsid Antigen IgM Result Interpretation: [facility] [place] [facility] </=0.8 Al Negative [facility] 0.9-1.0 Al Equivocal >/=1.1 Al Positive Performing Organization Address [facility] Phone Number [address] * EBV-VCA antibody, IgG (01/18/2018 7:24 AM CDT) OMER [place] VIRAL CAPSID Positive (A) Negative, Equivocal [facility] ANTIGEN IGG [facility] Specimen Blood Narrative Performed At Omer [place] Viral Capsid Antigen IgG Result Interpretation: [facility] </=0.8 Al Negative [facility] 0.9-1.0 Al Equivocal >/=1.1 Al Positive Performing Organization Address City/[facility] Centercode Phone Number [place] [phone] [place] [address] * Blood typing, automated (01/18/2018 7:24 AM CDT) ABO/RH AUTOMATED (BEAKER) O POSITIVE [facility] Specimen Blood Performing Organization Address [facility] Phone Number [address] * RPR (01/18/2018 7:24 AM CDT) RPR Nonreactive Nonreactive [facility] Specimen Blood Performing Organization Address [facility] Phone Number [address] * Hepatitis B surface antibody (01/18/2018 7:24 AM CDT) Hep B S Ab <8.0 <8.0 mIU/mL [facility] Specimen Blood Performing Organization Address [facility] Phone Number [address] * Hepatitis B surface antigen (01/18/2018 7:24 AM CDT) hepatitis B Surface Ag Nonreactive Nonreactive [facility] Specimen Blood Performing Organization Address [facility] Phone Number [address] * Cytomegalovirus antibody, IgG (01/18/2018 7:24 AM CDT) CYTOMEGALOVIRUS, IGG Positive (A) Negative, Equivocal [facility] Specimen Blood Narrative Performed At CMV IgG Result Interpretation: [facility] </=0.8 Al Negative [facility] 0.9-1.0 Al Equivocal >/=1.1 AlPositive Performing Organization Address [facility] Phone Number [address] * Cardiolipin Antibodies, IgG and IgM (01/18/2018 7:24 AM CDT) Anticardiolipin IgG 3.3 <20.0 GPL [facility] Anticardiolipin IgM 0.9 <20.0 MPL [facility] Specimen Blood Narrative Performed At Anticardiolipin IgG Result Interpretation: [facility] <20.0 GPL Normal [facility] >/=20.0 GPL Positive Anticardiolipin IgM Result Interpretation: <20.0 MPL Normal >/=20.0 MPL Positive Performing Organization Address [facility] Phone Number [address] * Direct AHG (KOREY)/Direct Ciara (01/18/2018 7:24 AM CDT) Direct AHG-IGG NEGATIVE [facility] Direct AHG-C3B, C3D NEGATVIE [facility] Specimen Blood Performing Organization Address [facility] Phone Number [address] * Varicella Zoster Antibody, IgG (01/18/2018 7:24 AM CDT) Varicella IgG >8.0 [facility] Specimen Blood Narrative Performed At VARICELLA ZOSTER RESULT INTERPRETATIONS: [facility] <=0.8 AlNonreactive:Presumed non-immune to VZV [facility] 0.9-1.0 AlEquivocal >=1.1 AlReactive:Presumed immune to VZV Performing Organization Address [facility] [place] [address] [phone] [place] [address] * Complement Component C3 (01/18/2018 7:24 AM CDT) C3 Complement 190 82 - 193 mg/dL [facility] Specimen Blood Performing Organization Address [facility] [place] [address] [phone] [place] [address] * Complement Component C4 (01/18/2018 7:24 AM CDT) C4 Complement 34 15 - 57 mg/dL [facility] Specimen Blood Performing Organization Address City/[facility] Phone Number [address] [address] [phone] [place] [address] * Uric Acid (01/18/2018 7:24 AM CDT) Uric Acid 3.8 2.6 - 7.2 mg/dL [facility] Specimen Blood Performing Organization Address City/[facility]ercode Phone Number [address] [address] [facility] * Phosphorus (01/18/2018 7:24 AM CDT) Phosphorus 5.4 (H) 2.3 - 4.7 mg/dL [facility] Specimen Blood Performing Organization Address [facility] Phone Number [place] [phone] [place] [address] * PTH, Intact (01/18/2018 7:24 AM CDT) PTH 753.2 (H) 8.5 - 72.5 pg/mL [facility] Specimen Blood Performing Organization Address [facility] [place] Phone Number [address] [address] [facility] * Lactate Dehydrogenase (LDH) (01/18/2018 7:24 AM CDT) LDH 211 125 - 220 U/L [facility] Specimen Blood Performing Organization Address City/[facility] Phone Number [address] [address] [facility] * Hemoglobin A1c (01/18/2018 7:24 AM CDT) Hemoglobin A1C 5.3 4.3 - 6.1 % [facility] Specimen Blood Performing Organization Address City/[facility] Phone Number [address] [address] [phone] * Gamma Glutamyl Transferase (GGT) (01/18/2018 7:24 AM CDT) GGT 56 9 - 64 U/L [facility] Specimen Blood Performing Organization Address City/[facility] Phone Number [place] [phone] * Lipid panel (01/18/2018 7:24 AM CDT) Triglycerides 76 mg/dL [facility] Cholesterol 128 mg/dL [facility] HDL 41 mg/dL [facility] LDL Calculated 72 mg/dL [facility] Specimen Blood Narrative Performed At Triglyceride Reference Range: [facility] Low Risk <150 [facility] [id number] High Risk 200-499 Very High Risk>=500 Cholesterol Reference Range: Low Risk <200 [id number] High Risk>240 HDL Cholesterol Reference Range: Low Risk >=60 High Risk <40 LDL Cholesterol Reference Range: Optimal<100 Near [id number] Very High >=190 Performing Organization Address City/State/Zipcode Phone Number [address] * Comprehensive metabolic panel (01/18/2018 7:24 AM CDT) Protein, Total 10.0 (H) 6.0 - 8.3 gm/dL [facility] Albumin 4.6 3.5 - 5.0 g/dL [facility] Alkaline Phosphatase 303 (H) 40 - 150 U/L [facility] Total Bilirubin 0.6 0.2 - 1.2 mg/dL [facility] Sodium 136 136 - 145 meq/L [facility] Potassium 4.0 3.5 - 5.1 meq/L [facility] Chloride 90 (L) 98 - 107 meq/L [facility] CO2 30 (H) 22 - 29 meq/L [facility] BUN 23 (H) 7 - 21 mg/dL [facility] Creatinine 7.23 (H) 0.57 - 1.25 mg/dL [facility] Glucose 87 70 - 105 mg/dL [facility] Calcium 10.2 8.4 - 10.2 mg/dL [facility] AST 16 5 - 34 U/L [facility] ALT 15 6 - 55 U/L [facility] EGFR 9Comment: ESTIMATED GFR IS NOT mL/min/1.73 sq m [facility] ACCURATE CREATININE [facility] CLEARANCE IN PREDICTING GLOMERULAR FILTRATION RATE. ESTIMATED GFR IS NOT APPLICABLE FOR DIALYSIS PATIENTS. Specimen Blood Performing Organization Address City/State/Zipcode Phone Number [address] [phone] [facility] after 01/13/2018 Insurance Payer Benefit Subscriber ID Type Phone Address Plan / Group MEDICARE MEDICARE A xxxxxxxxxx Medicare B MEDICAID MEDICAID xxxxxxxxx Medicaid OF [place] Advance Directives For more information, please contact: [address] [phone] Date Inactivated Comments Code Status Date Activated [...]
--- NOTE | 2019-01-14 10:36 | NUR ---
received pt via wheelcahir from ER, resp even and unlabored. denies pain at this time. oriented to room and use of call light. call light placed within reach. Addendum: 01/15/19 at 0942 by Hayley Ram RN 0900 In to administer morning med round and found that both ports of the central line is clotted off. A call was placed to Dr. Nolasco for order to use altr Addendum: 01/15/19 at 0943 by Hayley Ram RN cont'd clot busting med in the line. Addendum: 01/15/19 at 0946 by Hayley Ram RN tHIS ENTRY PLACED IN THE WRONG CHART.
[2019-01-14 11:00] VITALS: BP 136/82
[2019-01-14 11:53] VITALS: BP 136/82
[2019-01-14] MEDS ORDERED: SODIUM CHLORIDE 0.9% 1000ML 2,000 ML ONE (11:57)
[2019-01-14] MEDS ORDERED: HYDRALAZINE HCL 20 MG/ML VIAL IV PRN (13:45)
[2019-01-14 14:08] VITALS: BP 136/82
--- NOTE | 2019-01-14 15:42 | History and Physical ---
PRESENTING COMPLAINT: Lower abdominal pain for 1 day causing the patient wake up from sleep. HISTORY OF PRESENT ILLNESS: A 33-year-old male, who was admitted from ER. 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 The patient told that he woke up from sleep around 5 in the technical system analyst. The pain was abrupt, severe in intensity without any radiation, this is also waxing and waning, maximal intensity was 9/10. Pain was dull aching in nature. He denies any nausea, vomiting, fever, travel history, sick contact, consumption of unusual food. He was not also on any oral antibiotics in the recent time. He denied any diarrhea. He has one bowel movement today was normal. He also denied any passage of blood with stool or black stool. The patient did not have similar episode in the past per his statement. REVIEW OF SYSTEMS: CONSTITUTIONAL: No fever, chills, or rigor. ENT: No nasal congestion. No sore throat. No earache. CARDIOVASCULAR: No chest pain, shortness of breath, or palpitation. PULMONARY: No cough. No hemoptysis. GI: Abdominal pain as per HPI. No nausea. No vomiting. No diarrhea. No passage of bloody stool or black stool. : No dysuria. No hematuria. The patient is on hemodialysis. MUSCULOSKELETAL/SKIN/LYMPHORETICULAR: No joint pain. No joint swelling. No skin rash. No swollen glands. NEUROLOGIC: No loss of consciousness, seizures, or headache. PAST MEDICAL HISTORY: ESRD, on hemodialysis Monday, Monday, and Monday; lupus nephritis, hypertension, hyperlipidemia, valvular heart disease, status post valve replacement; infective endocarditis in the past, TIA also in the past, pneumonia and respiratory failure in 2016 as per his electronic medical record. PAST SURGICAL HISTORY: Prosthetic heart valve, cholecystectomy, appendectomy, repeat bowel surgery for complication, and left arm AV fistula for hemodialysis. ALLERGIES: NO KNOWN MEDICATION ALLERGY. HOME MEDICATIONS: As per med reconciliation sheet. SOCIAL HISTORY: The patient lives at home with his family. His mother is at bedside now. HABITS: Denies smoking, drinking, or substance abuse history. FAMILY HISTORY: Positive for hypertension and hyperlipidemia. PHYSICAL EXAMINATION: VITAL SIGNS: Today; BP 151/92, pulse 92, temperature 98.4, T-max 99.4, respirations 18, and SpO2 of 100% at room air. GENERAL: He is alert, not in acute distress, lying in bed comfortably, now having hemodialysis. HEENT: No pallor. No icterus. Oral mucosa moist. NECK: No JVD. No carotid bruit. No lymphadenopathy. No thyromegaly. HEART: S1 and S2, regular. No murmur. LUNGS: Clear to auscultation. ABDOMEN: Soft. Mild left lower quadrant tenderness. No rebound tenderness. No palpable masses. Bowel sounds active in all quadrants. EXTREMITIES: No edema, cyanosis, or clubbing. Left upper extremity AV fistula. LABORATORY DATA: CBC; WBC 11.1, hemoglobin 12.7, hematocrit 36, platelets 165, MCV 94, RDW 14, neutrophils 76, lymphocytes 13. PT 13.3, INR 0.96, and PTT 46.9. Chemistry panel; sodium 137, potassium 4.6, chloride 90, CO2 of 23, anion gap 16, BUN 55, creatinine 11.1, glucose 85, calcium 8.5, total bilirubin 0.7, AST 13, ALT 9, alkaline phosphatase 249, CK 110, and CK-MB 1.40. Troponin 0.059. Total protein 7.4, albumin 3.5, and globulin 3.9. Lipase 39. Urinalysis; protein 2+, glucose 2+, ketones negative, nitrite negative, leukocyte esterase negative, wbc's 0-5, and rbc's 0-5. profile pending. MICROBIOLOGICAL DATA: Urine culture in progress. RADIOLOGICAL DATA: CT of the abdomen and pelvis without IV contrast uncomplicated sigmoid diverticulitis. No extraluminal or other diverticular abscess, trace free fluid in the pelvis, subpleural linear opacity in the left lung base and more focal nodular component along the posterior right lower lobe likely represents subsegmental atelectasis unchanged since 11/16/2018, atrophic kidneys, no hydronephrosis or renal calculi. ASSESSMENT AND PLAN: 1. Lower abdominal pain with mild leukocytosis due to acute sigmoid diverticulitis. The patient is started on IV antibiotics. He does not have any diarrhea or rectal bleeding. We would continue IV antibiotics, IV fluids, clear liquid diet by Gastroenterology. Gastroenterology consultation requested from ER. We will follow Gastroenterology recommendation. 2. End-stage renal disease, on hemodialysis. Continue dialysis per schedule. His cotton header, Dr. Kelsey is consulted from ER. 3. Prosthetic aortic valve. Continue the patient's regular medication. He was not on anticoagulation as per his medication list. We would check with the patient if he was on anticoagulation, we would continue anticoagulation. 4. Hypertension. Continue regular medication. 5. Hyperlipidemia. Continue regular medication. 6. Deep vein thrombosis prophylaxis. The patient is ambulatory. Continue SCD while in bed. If he is on anticoagulant, we would continue anticoagulation. 7. Advance directive. The patient is full code. 8. Discharge plan would depend upon hospital course and Gastroenterology recommendation. MD HUNTER Arnold/DIMITRIOS /[id number]
--- NOTE | 2019-01-14 15:57 | Consultation ---
DATE OF CONSULTATION: 01/14/2019 HISTORY OF PRESENT ILLNESS: This is a 33-year-old gentleman, well known to our Nephrology service, underlying history of hypertension, end-stage renal disease, AV fistula placement, underlying history of sepsis, prior lupus. Admitted with diverticulitis. Currently, awake, alert, resting, in no apparent distress. Scheduled for dialysis today. Denies shortness of breath, nausea, vomiting. Had some abdominal pain. No diarrhea. No hematemesis or melena. ALLERGIES: NO APPARENT DRUG ALLERGIES. CURRENT MEDICATIONS: Piperacillin-tazobactam 3.375 g IV q.12 h., metronidazole 500 mg IV q.8 h., hydralazine p.r.n., gemfibrozil 600 mg p.o. b.i.d., Carafate 1 g p.o. b.i.d., labetalol 200 mg p.o. b.i.d., folic acid 1 mg daily, morphine sulfate p.r.n., ondansetron p.r.n. SOCIAL HISTORY: He does not smoke or drink. FAMILY HISTORY: Significant for hypertension. CURRENT LABS: Sodium 137, potassium 4.6, creatinine 11.4, total bilirubin 0.7, AST 13, alkaline phosphatase 249, ALT 9. Troponin I is 0.059. White count 11.1 with a hemoglobin of 12.7. Urinalysis, specific gravity 1.015. Urine microscopy, relatively benign. PHYSICAL EXAMINATION: GENERAL: Awake, alert, lying supine, in no apparent distress. VITAL SIGNS: Blood pressure of 136/82, pulse rate 73, afebrile. HEAD and NECK: Cornea clear. Oral mucosa moist. Neck veins flat. LUNGS: Bibasilar rales. HEART: S1, S2 audible. ABDOMEN: Otherwise soft, nontender. EXTREMITIES: Lower extremity examination shows no edema. IMPRESSION: Sigmoid diverticulitis, end-stage renal disease, fluid overload, hypertension, prior lupus in remission, secondary hyperparathyroidism and anemia of chronic kidney disease. PLAN: Hemodialysis. Place on renal diet. Currently on full liquids, we will advance to renal diet. Potassium restriction. Blood pressure control. We will hold off on phosphorus binders for the moment, we will resume later. Please see orders. MD AVIVA Roca/MODL /[id number]
[2019-01-14 16:00] VITALS: BP 121/84
[2019-01-14] MEDS: GEMFIBROZIL 600 MG TAB PO SCH (17:23)
[2019-01-14] MEDS: LABETALOL HCL 200 MG TAB PO SCH (17:25)
[2019-01-14] MEDS: SUCRALFATE 1 GM TAB PO SCH (17:25)
--- NOTE | 2019-01-14 18:29 | NUR ---
per dialysis nurse, 2.5L removed.
[2019-01-14 20:00] VITALS: BP 108/59
[2019-01-14] MEDS ORDERED: SODIUM CHLORIDE 0.9% 250ML 250 ML ONE (21:18)
[2019-01-14 23:05] VITALS: BP 108/59
[2019-01-15] VITALS (8 sets, daily range): BP systolic 102–120; BP diastolic 55–62
[2019-01-15 05:09] LABS: BASOPHILS % 0.5 % (0.0-1.0); EOSINOPHILS # (AUTO) 0.2 (0.0-0.4); HEMATOCRIT 35.2 % (38.2-49.6); HEMOGLOBIN 11.9 g/dL (14.0-18.0); LYMPHOCYTES # (AUTO) 1.4 (1.0-3.2); LYMPHOCYTES % 18.2 % (18.0-39.1); MEAN CORPUSCULAR HEMOGLOBIN 32.6 pg (28-32); MEAN CORPUSCULAR HGB CONC 33.8 g/dL (31-35); MEAN CORPUSCULAR VOLUME 96.4 fL (81-99); MONOCYTES # (AUTO) 0.9 (0.2-0.8); NEUTROPHILS # (AUTO) 5.1 (2.1-6.9); PLATELET COUNT 149 x10e3/uL (140-360); RED BLOOD COUNT 3.65 x10e6/uL (4.3-5.7); RED CELL DISTRIBUTION WIDTH 14.2 % (11.7-14.4)
[2019-01-15 05:27] LABS: ALBUMIN 3.2 g/dL (3.5-5.0); ALBUMIN/GLOBULIN RATIO 0.8 (0.8-2.0); ANION GAP 17.7 mmol/L (8-16); CALCIUM 8.6 mg/dL (8.4-10.2); CREATININE, SERUM 7.45 mg/dL (0.72-1.25); POTASSIUM 4.7 mmol/L (3.5-5.1)
[2019-01-15] MEDS: SUCRALFATE 1 GM TAB PO SCH ×2 (07:30→17:33)
[2019-01-15] MEDS: PANTOPRAZOLE SOD 40 MG TABEC PO SCH (07:30)
--- NOTE | 2019-01-15 08:50 | NUR ---
The pt. is in bed awake and alert. He denies pain or discomfort at this time. No issues or concerns verbalized.
[2019-01-15] MEDS: GEMFIBROZIL 600 MG TAB PO SCH ×2 (09:00→17:00)
[2019-01-15] MEDS: LABETALOL HCL 200 MG TAB PO SCH ×2 (09:00→17:00)
[2019-01-15] MEDS: FOLIC ACID 1 MG TAB PO SCH (09:00)
[2019-01-15] MEDS: PIPERACILLIN/TAZO 2.25 GM 50 ML IV SCH ×2 (09:00→20:36)
[2019-01-15] MEDS: METRONIDAZOLE 500MG/NS 100ML 100 ML IV SCH ×3 (10:00→22:39)
--- NOTE | 2019-01-15 15:53 | NUR ---
I spoke with the dialysis center to let them know that the pt. will need dialysis on 01/16/19/. The pt. has been consented for dialysis.
--- NOTE | 2019-01-15 16:19 | NUR ---
Nutrition Screen Note RD Recommendation for Physician: -Rec advancing diet as tolerated to renal/ low fiber diet Plan of Care: RD following, monitoring for tolerance and adequacy Nutrition reason for involvement: Diagnosis Primary Diagnose(s): acute sigmoid diverticulitis, ESRD PMH: ESRD on hemodialysis, lupus, nephritis, hypertension, hyperlipidemia, valvular heart disease, status post valve replacement, infective endocarditis, TIA, pneumonia and respiratory failure Ht: 75in Wt: 229lb BMI: 28.6kg/m2 IBW: 196lb +/- 10% RD Assessment: (01/15) Chart reviewed. Labs and meds reviewed. 33yo M, who was admitted for abdominal pain. Abd/ pel CT showed acute sigmoid diverticulitis. Visited pt in the room. Pt tolerated clear liquid diet without any nausea or vomiting. Normal BM. Pt denied any pain during my visit. Weight has been stable. Pt was seeing RD at dialysis facility. No question at this time. Will continue to monitor and follow. Current Diet: clear liquid diet Malnutrition Evaluation (01/15/2019) The patient does not meet criteria for a specified degree of malnutrition at this time. Will re-evaluate at follow-up as appropriate. Diet Education Needs Assessment: Diet education not indicated. K was WNL. Pt was seeing RD at dialysis facility. Nutrition Care Level: low Signed: Kiki Jones, MS, RD, LD
--- NOTE | 2019-01-16 01:35 | Consultation ---
DATE OF CONSULTATION: 01/15/2019 HISTORY OF PRESENT ILLNESS: This is a 33-year-old, who is known to me, presented to the hospital because of abdominal pain and malaise in the left lower quadrant area about 9/10 in intensity. The patient denies any nausea or vomiting along with this problem. The patient denies any bleeding along with this problem. His workup revealed that he had leukocytosis with WBC of 11.1 on admission, which is down to normal now, and also CT scan which shows acute sigmoid diverticulitis. He is doing better at this point. PAST MEDICAL PROBLEMS: significant for history of renal disease, on hemodialysis; history of lupus nephritis; hypertension; hyperlipidemia; valvular heart disease, status post valve replacement; infective endocarditis; TIA; and pneumonia. ALLERGIES: NONE. CURRENT MEDICATIONS: Include; sucralfate, Flagyl, gemfibrozil, labetalol, folic acid, Zosyn, Protonix, and hydralazine as needed. SOCIAL HISTORY: No alcohol use. FAMILY HISTORY: Noncontributory. REVIEW OF SYSTEMS: At this point, denies any chest pain or shortness of breath. Denies any dysphagia or odynophagia. Denies any dysuria, hematuria, or any kind of syncopal episode. PHYSICAL EXAMINATION: GENERAL: The patient is awake and alert, appears to be stable, not in any acute distress at this point. VITAL SIGNS: Afebrile currently with stable vital signs. HEAD, EYES, EARS, NOSE, AND THROAT: Normocephalic, atraumatic. Sclerae are anicteric. NECK: Supple. HEART: Regular. LUNGS: Clear. ABDOMEN: Soft. There is mild left lower quadrant tenderness. There is no rebound or mass. EXTREMITIES: No cyanosis. No clubbing. LAB VALUES: This morning, BUN 31, . WBC of 7.65, hemoglobin 11.5, and hematocrit 35.2. PT 13.3, INR 0.95. IMPRESSION: 1. Sigmoid diverticulitis, currently doing better. 2. History of renal disease, on hemodialysis. 3. History of lupus nephritis. 4. Hypertension. RECOMMENDATIONS: Continue current care at this point, advance diet slowly. The patient is to benefit in about 6 to 8 weeks. MD JEFERSON Garcia/MODL /[id number] cc: Mario Rizvi MD
[2019-01-16 04:00] VITALS: BP 115/60
[2019-01-16] MEDS: METRONIDAZOLE 500MG/NS 100ML 100 ML IV SCH ×3 (04:34→16:40)
[2019-01-16 05:30] LABS: BASOPHILS % 0.7 % (0.0-1.0); EOSINOPHILS # (AUTO) 0.4 (0.0-0.4); EOSINOPHILS % 6.2 % (0.0-6.0); HEMATOCRIT 33.1 % (38.2-49.6); HEMOGLOBIN 11.1 g/dL (14.0-18.0); LYMPHOCYTES # (AUTO) 1.7 (1.0-3.2); LYMPHOCYTES % 28.3 % (18.0-39.1); MEAN CORPUSCULAR HEMOGLOBIN 32.5 pg (28-32); MEAN CORPUSCULAR HGB CONC 33.5 g/dL (31-35); MEAN CORPUSCULAR VOLUME 96.8 fL (81-99); MONOCYTES # (AUTO) 0.6 (0.2-0.8); MONOCYTES % 9.9 % (4.4-11.3); NEUTROPHILS # (AUTO) 3.4 (2.1-6.9); NEUTROPHILS % 54.4 % (38.7-80.0); PLATELET COUNT 143 x10e3/uL (140-360); RED BLOOD COUNT 3.42 x10e6/uL (4.3-5.7); RED CELL DISTRIBUTION WIDTH 14.2 % (11.7-14.4)
[2019-01-16 05:53] LABS: ALBUMIN 3.2 g/dL (3.5-5.0); ALBUMIN/GLOBULIN RATIO 0.8 (0.8-2.0); ANION GAP 19.6 mmol/L (8-16); CALCIUM 8.4 mg/dL (8.4-10.2); CREATININE, SERUM 9.19 mg/dL (0.72-1.25); POTASSIUM 4.6 mmol/L (3.5-5.1)
[2019-01-16 07:30] VITALS: BP 111/68
[2019-01-16 07:32] VITALS: BP 111/68
[2019-01-16] MEDS: SUCRALFATE 1 GM TAB PO SCH ×2 (07:53→16:40)
[2019-01-16] MEDS: PANTOPRAZOLE SOD 40 MG TABEC PO SCH (07:53)
--- NOTE | 2019-01-16 08:23 | Diagnostic Imaging Report ---
Exam: KUB - 2 views Clinical History: Abdominal pain Comparison: CT abdomen pelvis of 01/14/2019 Findings: Nonobstructive bowel gas pattern. No free air. Sternotomy wires partially visualized. Status post cholecystectomy. Extensive atherosclerotic vascular calcifications. The osseous structures appear unremarkable. The visualized portions of the lung bases appear clear. Trace left pleural effusion. Impression: No evidence of obstruction. No free air. Signed by: Willie Dwyer MD on 01/16/2019 8:20 AM
[2019-01-16] MEDS: LABETALOL HCL 200 MG TAB PO SCH ×2 (08:30→16:41)
[2019-01-16] MEDS: GEMFIBROZIL 600 MG TAB PO SCH ×2 (08:30→16:40)
[2019-01-16] MEDS: FOLIC ACID 1 MG TAB PO SCH (08:30)
[2019-01-16] MEDS: PIPERACILLIN/TAZO 2.25 GM 50 ML IV SCH (09:57)
[2019-01-16] MEDS ORDERED: SODIUM CHLORIDE 0.9% 1000ML 2,000 ML ONE (10:08)
--- NOTE | 2019-01-16 10:30 | NUR ---
10:00 FLAGYL NOT ADMINISTERED D/T DIALYSIS PROCEDURE
[2019-01-16 11:27] VITALS: BP 112/70
--- NOTE | 2019-01-16 11:41 | NUR ---
IMM letter delivered and explained to pt. He verbalized understanding. States ready to go home. Signed copy placed in chart. Copy to pt. Anticipate dc after HD today
[2019-01-16] MEDS ORDERED: ONDANSETRON HCL 4 MG ORAL DISINTEGRATING TAB PO PRN (12:15)
--- NOTE | 2019-01-16 15:20 | NUR ---
PT HEMODIALYSIS COMPLETE. PT TOLERATED TREATMENT WELL, PER HD NURSE. 3L OF FLUID REMOVED
[2019-01-16 15:22] VITALS: BP 126/73
[2019-01-16] MEDS ORDERED: AUGMENTIN 500-1 EACH PO (18:32)
[2019-01-16] MEDS ORDERED: ACIDOPHILUS1 EAC1 PO (18:33)
--- NOTE | 2019-01-16 19:20 | NUR ---
REPORT GIVEN TO ONCOMING NURSE, ZENON HOWE. AWARE THAT WE ARE AWAITING CLEARANCE FROM GI STANDPOINT FOR DISCHARGE.
--- NOTE | 2019-01-16 19:52 | NUR ---
Received call from Dr. Otero (covering for Dr. Proctor). informed ok to advance pt diet to GI soft diet and if pt tolerated that diet, pt can go home tonight.
--- NOTE | 2019-01-16 20:00 | NUR ---
Pt given soft foods (Jello and sandwich). Pt able to tolerate food well and denies any pain or nausea and vomiting. Pt states he is ready to go home.
[2019-01-16 20:08] VITALS: BP 124/69
--- NOTE | 2019-01-16 21:05 | NUR ---
Pt signed discharge papers. Pt IV on right forearm (20g) d/c'd. Patient escorted downstairs via wheelchair accompanied by mother (Bárbara). Pt went home via private automobile. Pt left unit and hospital in stable condition.
--- NOTE | 2019-01-17 04:56 | Discharge Summary ---
Discharge summary consultation by Dr. Proctor, Gastroenterology, and Dr. Nilton Kelsey, ruffler. FINAL DIAGNOSIS: Left lower abdominal pain due to acute sigmoid diverticulitis, improved. OTHER DIAGNOSES: 1. Leukocytosis, resolved. 2. End-stage renal disease, on hemodialysis, Monday, Monday, and Monday. 3. Lupus nephritis by history. 4. Aortic and tricuspid valve replacement, cadaveric valve by history. 5. Hypertension. 6. Hyperlipidemia. 7. Chronic anemia. BRIEF HOSPITAL COURSE: 33-year-old male, was admitted from the ER for left lower abdominal pain for 1 day. The patient was brought to the ER by his mother. The patient denies having any fever, nausea, vomiting, no rectal bleeding. He was found having acute sigmoid diverticulitis on CT scan. He had mild leukocytosis. The patient was started on IV antibiotic and IV fluid. He had ESRD due to lupus nephritis. The patient is on hemodialysis. The patient was continued on his regular medication. He was started on liquid diet. GI consult was done by Dr. Proctor and Nephrology consult was done by his regular nephrology, Dr. Kelsey. The patient was continued on his hemodialysis also. His leukocytosis resolved. The patient's pain got controlled. He did not have any diarrhea or melena or rectal bleeding. The patient's bowel movement is normal. His oral feeding was gradually advanced. The patient is tolerating food well. He did not have any recurrence of the pain. The patient was cleared by brine tank tender for discharge. The patient also wants to go home today. He had hemodialysis today. He is discharged to home with instructions for followup with Gastroenterology, Dr. Proctor. He was also advised to follow up with his PCP Dr. Mario Rizvi in 1 week. The patient was otherwise uneventful during this hospital stay. He is hemodynamically stable and discharged. PHYSICAL EXAMINATION: VITAL SIGNS: BP 112/70, pulse 64, temperature 96.5, respirations 17, and SpO2 of 97% at room air. GENERAL: He is alert, not in acute distress, no fever. HEENT: NC/AT. No pallor. No icterus. Oral mucosa is moist. NECK: No JVD. No carotid bruit. No lymphadenopathy. No thyromegaly. HEART: S1 and S2, regular. No murmur. LUNGS: Clear to auscultation. ABDOMEN: Soft and nontender. No palpable masses. Bowel sounds active in all quadrants. EXTREMITIES: No edema or cyanosis. NEUROLOGIC: Motor grossly equal on both sides. LABORATORY DATA: CBC; WBC 6.15, hemoglobin 11, hematocrit 33, platelet 143, MCV 96, RDW 14, neutrophils 54, and lymphocytes 28. PT 13.3, INR 0.96, and PTT 46.9. Chemistry panel; sodium 135, potassium 4.6, chloride 96, CO2 of 24, anion gap 15, BUN 40, creatinine 9.19, glucose 82, and calcium 8.4. Total bilirubin 0.8, AST 17, ALT 18, and alkaline phosphatase 207. CK 110, CK-MB 1.40. Troponin I 0.05. Total protein 7.4, albumin 3.5, globulin 3.9, and lipase 39. Urinalysis; protein 2+, glucose 2+, blood trace, wbc's 0 to 5, rbc's 0 to 5. Acute hepatitis viral profile is negative. MICROBIOLOGY DATA: Urine culture no growth. Blood culture no growth in 24 hours. RADIOLOGICAL DATA: CT abdomen and pelvis without contrast, uncomplicated sigmoid diverticulitis. No extraluminal or diverticular abscess. Trace free fluid in the pelvis, subpleural linear opacities in the left lung base and more focal nodular component along the posterior right lower lobe likely represent, subsegmental atelectasis and they appear unchanged from 11/16/2018. No hydronephrosis or renal calculi. X-ray KUB single view done today, no evidence of obstruction or no free air. MEDICATIONS ON DISCHARGE: The patient was advised to continue his regular medication. He was advised to take Augmentin 500 mg q.12 hours for 2 weeks along with Lactobacillus p.o. DIET: Renal diet and cardiac diet as tolerated. INSTRUCTIONS ON DISCHARGE: Continue mediation as per discharge recommendation. Follow up with brine tank tender and ruffler as available. Follow up with PCP Dr. Mario Rizvi in 1 week. Monitor PT pulse at home. Repeat CBC and CMP with next hemodialysis. Follow up with ruffler as available. MD HUNTER Arnold/DIMITRIOS /[id number]
== END 2019-01-16 21:15 | disposition home or self-care (01) | DRG 391 ==
LOC: ER 06:18 → ERHOLD 09:46 → MED/SURG2 10:52
PROVIDERS: ADMIT Internal Medicine; ATTEND Internal Medicine
PROC: 5A1D70Z Performance of Urinary Filtration, Intermittent, Less than 6 Hours Per Day (ICD-10-PCS; principal; 2019-01-14)
PROC: 5A1D70Z Performance of Urinary Filtration, Intermittent, Less than 6 Hours Per Day (ICD-10-PCS; 2019-01-16)
DX: K57.32 Diverticulitis of large intestine without perforation or abscess without bleeding (principal); N18.6 End stage renal disease; I12.0 Hypertensive chronic kidney disease with stage 5 chronic kidney disease or end stage renal disease; N25.81 Secondary hyperparathyroidism of renal origin; Z99.2 Dependence on renal dialysis; D63.1 Anemia in chronic kidney disease; M32.14 Glomerular disease in systemic lupus erythematosus; E78.5 Hyperlipidemia, unspecified; Z95.2 Presence of prosthetic heart valve; Z86.73 Personal history of transient ischemic attack (TIA), and cerebral infarction without residual deficits; Z82.49 Family history of ischemic heart disease and other diseases of the circulatory system; Z83.438 Family history of other disorder of lipoprotein metabolism and other lipidemia; E87.70 Fluid overload, unspecified; K21.9 Gastro-esophageal reflux disease without esophagitis; D72.829 Elevated white blood cell count, unspecified
CPT/HCPCS: 36415; 74018; 74176; 80053; 81001; 82550; 82553; 83690; 84484; 85025; 85610; 85730; 86704; 86705; 86706; 86707; 87040; 87086; 90962; 93005; 99284; J2270; J2405; J2543; J7030; J7050

== ENCOUNTER 2019-01-30 11:50 | Emergency (ER) | payer MEDICARE, OTHER ==
[~2019-01-30] VITALS: Ht 190.5 cm; Wt 103.9 kg
[~2019-01-30 11:50] MED LIST changes: +ACIDOPHILUS1 EAC1 PO; +AUGMENTIN 500-1 EACH PO
--- OUTSIDE RECORDS SUMMARY | 2019-01-30 11:53 | XMS REPORT | Clinical Summary ---
Author Author JEANNINE [facility] Address Unknown Phone Unavailable Care Team Providers Care [employer] Name Role Phone RizviMario horner Evitachhaya PCP [...] by mouth 2 (two) times daily. Active ssupkz-lhsocyyg-zvyomjg Take 36,000 0 (CREON) 36,000-114,000- units of 180,000 unit CpDR capsule lipase by mouth 3 (three) times daily. Active levothyroxine (SYNTHROID, Take 50 mcg 0 LEVOTHROID) 50 MCG tablet by mouth Every morning on an empty stomach. 02/02/2018 aspirin 81 MG chewable Take 1 tablet 30 tablet 0 tablet (81 mg total) 7 by mouth daily. Active Problems Patient Care Coordination Note CardiologyBay Ellis [phone] Problem Noted Date Tricuspid insufficiency 12/29/2016 Overview: S/p tricuspid valvuloplasty 12/27/16 Mild protein-calorie malnutrition 12/29/2016 MRSA infection (methicillin-resistant Staphylococcus aureus) 12/27/2016 Infective endocarditis of aortic valve 12/25/2016 Severe aortic valve regurgitation 12/05/2016 ESRD (end stage renal disease) 05/26/2016 Overview: HD since 05/2016, M-W-F, [facility]- Dr. Crane ,Dr. Bowles, AVF SLE (systemic lupus erythematosus) 03/11/2016 HTN (hypertension) 03/11/2016 Acid reflux 03/11/2016 Aortic stenosis 02/25/2016 Overview: s/p AVR on 03/04/16 and Redo on 12/27/16 Hypertension Immunizations Name Dates Previously Given Next Due [...] travel history available. Last Filed Vital Signs Not on file Plan of Treatment Not on file Implants Device Identifier Shelf Expiration Date Model / Serial / Lot Implanted Type Area Manufactur er 05/25/2017 [id number] / / [id number] Sealr Hemstat Coseal 8ml [id number] - Cement/Freedom N/A: Chest KEENE:MED [id number] ler/Adhesi DEL Implanted: Qty: 1 on 12/27/2016 by Candelario Loyola 01/23/2019 [id number] / / [id number] Patch Vasc [place] 1.65mm 1x6in Graft/Patc N/A: Chest CR [id number] - [id number] BARD:PERIP Implanted: Qty: 1 on 12/27/2016 by HERAL VASBeau Daniel MD 08/26/2020 HVA-L / ID:[id number] / Cryo.Aortic Valve Tissue N/A: Chest LIFENET Implanted: Qty: 1 on 12/27/2016 by Graft/Subs Beau Cross MD titute 04/19/2021 VG-0209N / PN [id number] / [id number] Patch Periph Vascu-Grd 2x9cm Tissue N/A: Chest SYNOVIS Vg-0209n - Spn [id number] Graft/Subs LIFE Implanted: Qty: 1 on 12/27/2016 by titute TECH:SURG Beau Cross MD INNOV 11/17/2017 TFGT-25A / [id number] / Valve Tiss Trifecta W/Gld 25a Valves N/A: Heart ST ROBI Tfgt-25a - [id number] MED:CARDIA Implanted: Qty: 1 on 03/04/2016 by Beto Grewal MD Explanted: 10/24/2019 [id number] / / [id number] Ring Semiflex 30mm Mounted [id number] Valves N/A: Heart MEDTRONIC: - [id number] STRUCTURAL Implanted: Qty: 1 on 12/27/2016 by HEART Beau Cross MD Procedures Comments Procedure Name Priority Date/Time Associated Diagnosis TRANSFUSE LEUKO-REDUCED Routine 08/02/2018 PLATELETS 5:21 PM EMPLOYEE COMMUNICATIONS COORDINATOR TRANSFUSE LEUKO-REDUCED Routine 08/02/2018 PLATELETS 5:21 PM EMPLOYEE COMMUNICATIONS COORDINATOR TRANSFUSE LEUKO-REDUCED Routine 08/02/2018 RED BLOOD CELLS 5:21 PM EMPLOYEE COMMUNICATIONS COORDINATOR TRANSFUSE LEUKO-REDUCED Routine 08/02/2018 RED BLOOD CELLS 5:21 PM EMPLOYEE COMMUNICATIONS COORDINATOR after 01/29/2018 Results * Transfuse Leuko-Red PLT (08/02/2018 5:21 PM EMPLOYEE COMMUNICATIONS COORDINATOR) Only the most recent of 4 results within the time period is included. * Transfuse Leuko-Red RBC (08/02/2018 5:21 PM EMPLOYEE COMMUNICATIONS COORDINATOR) Only the most recent of 2 results within the time period is included. after 01/29/2018 Insurance Payer Benefit Subscriber ID Type Phone Address Plan / Group MEDICARE MEDICARE A xxxxxxxxxx Medicare B MEDICAID MEDICAID xxxxxxxxx Medicaid OF [place] Advance Directives For more information, please contact: [facility] [address] [place] [address] Date Inactivated Comments Code Status [...]
[2019-01-30] MEDS ORDERED: KETOROLAC TROMETHAMINE 30 MG/ML VIAL IV STA (12:06)
[2019-01-30] MEDS ORDERED: ONDANSETRON HCL INJ 2MG/ML 2ML 2 MG/ML VIAL IV STA (12:06)
[2019-01-30 12:59] LABS: BASOPHILS # (AUTO) 0.1 (0.0-0.1); BASOPHILS % 0.8 % (0.0-1.0); EOSINOPHILS # (AUTO) 0.3 (0.0-0.4); EOSINOPHILS % 3.5 % (0.0-6.0); HEMATOCRIT 38.3 % (38.2-49.6); HEMOGLOBIN 12.9 g/dL (14.0-18.0); LYMPHOCYTES # (AUTO) 1.2 (1.0-3.2); LYMPHOCYTES % 17.3 % (18.0-39.1); MEAN CORPUSCULAR HEMOGLOBIN 32.3 pg (28-32); MEAN CORPUSCULAR HGB CONC 33.7 g/dL (31-35); MEAN CORPUSCULAR VOLUME 95.8 fL (81-99); MONOCYTES # (AUTO) 0.7 (0.2-0.8); MONOCYTES % 9.5 % (4.4-11.3); NEUTROPHILS # (AUTO) 4.9 (2.1-6.9); NEUTROPHILS % 67.9 % (38.7-80.0); PLATELET COUNT 175 x10e3/uL (140-360); RED CELL DISTRIBUTION WIDTH 13.6 % (11.7-14.4)
[2019-01-30 13:15] LABS: INR 1.08; PROTHROMBIN TIME 14.5 seconds (11.9-14.5)
[2019-01-30 13:16] LABS: PARTIAL THROMBOPLASTIN TIME 54.1 seconds (23.8-35.5)
[2019-01-30 13:26] LABS: ALBUMIN 3.7 g/dL (3.5-5.0); ALBUMIN/GLOBULIN RATIO 0.7 (0.8-2.0); ANION GAP 21.3 mmol/L (8-16); CALCIUM 8.9 mg/dL (8.4-10.2); CREATININE, SERUM 10.05 mg/dL (0.72-1.25); POTASSIUM 4.3 mmol/L (3.5-5.1)
[2019-01-30 13:33] LABS: CREATINE KINASE MB 1.4 ng/mL (0-5.0)
[2019-01-30 14:01] LABS: BILIRUBIN,URINE NEGATIVE (NEGATIVE); CLARITY,URINE CLEAR (CLEAR); COLOR,URINE YELLOW (YELLOW); KETONES,URINE NEGATIVE (NEGATIVE); LEUKOCYTE ESTERASE ,URINE TRACE (NEGATIVE); NITRITE,URINE NEGATIVE (NEGATIVE); URINE UROBILINOGEN 0.2 mg/dL (0.2 - 1)
[2019-01-30 14:02] LABS: PROTEIN,URINE DIPSTICK 3+ (NEGATIVE)
[2019-01-30 14:09] LABS: BACTERIA,URINE RARE /HPF; EPITHELIAL CELLS,URINE FEW /LPF; RBC,URINE 0-5 /HPF (0-5); WBC,URINE (MAN) 0-5 /HPF (0-5)
--- NOTE | 2019-01-30 14:15 | NUR ---
Pt sitting in bed, conversating with family at bedside, breathing even/unlabored, non-diaphoretic, denies any pain or n/v at this time, bed low/locked, call light in easy reach, will continue to monitor. Informed Pt that we are currently awaiting further orders from MD, verbalized understanding.
[2019-01-30 14:49] VITALS: BP 134/82
== END 2019-01-30 14:50 | disposition home or self-care (01) ==
LOC: ER 11:50
DX: R10.32 Left lower quadrant pain (principal); K62.5 Hemorrhage of anus and rectum; I12.0 Hypertensive chronic kidney disease with stage 5 chronic kidney disease or end stage renal disease; N18.6 End stage renal disease; Z99.2 Dependence on renal dialysis; M32.14 Glomerular disease in systemic lupus erythematosus
CPT/HCPCS: 36415; 80053; 81001; 82270; 82550; 82553; 84484; 85025; 85610; 85730; 87086; 93005; 99283

== ENCOUNTER 2019-02-18 09:32 | Emergency (ER) | payer MEDICARE, OTHER ==
[~2019-02-18] VITALS: Ht 190.5 cm; Wt 103.9 kg
--- OUTSIDE RECORDS SUMMARY | 2019-02-18 09:34 | XMS REPORT | Clinical Summary ---
Author Author JEANNINE [facility] Address Unknown Phone Unavailable Care Team Providers Care Adjunct Professor Of [employer] Name Role Phone RizviMario horner Evitachhaya PCP [...] gemfibrozil (LOPID) 600 Take 600 mg 3 02/13/201 MG tablet by mouth 2 7 (two) times daily before meals. Active sodium bicarbonate 650 MG Take 1 tablet 0 tablet by mouth 2 (two) times daily. Active dcoifo-hyssbopb-ltsbwcc Take 36,000 0 (CREON) 36,000-114,000- units of 180,000 unit CpDR capsule lipase by mouth 3 (three) times daily. Active levothyroxine (SYNTHROID, Take 50 mcg 0 LEVOTHROID) 50 MCG tablet by mouth Every morning on an empty stomach. Active Problems Patient Care Coordination Note Cardiology Angelina Ellis [phone] Problem Noted Date Tricuspid insufficiency 12/29/2016 Overview: S/p tricuspid valvuloplasty 12/27/16 Mild protein-calorie malnutrition 12/29/2016 MRSA infection (methicillin-resistant Staphylococcus aureus) 12/27/2016 Infective endocarditis of aortic valve 12/25/2016 Severe aortic valve regurgitation 12/05/2016 ESRD (end stage renal disease) 05/26/2016 Overview: HD since 05/2016, [place], [facility]- Dr. Crane ,Dr. Bowles, AVF SLE [...] Lot Implanted Type Area Manufactur er 05/25/2017 [id number] / / [id number] Sealr Hemstat Coseal 8ml [id number] - Cement/Freedom N/A: Chest KEENE:MED [id number] ler/Adhesi DEL Implanted: Qty: 1 on 12/27/2016 by Candelario Loyola 01/23/2019 [id number] / / [id number] Patch Vasc [place] 1.65mm 1x6in Graft/Patc N/A: Chest CR [id number] - [id number] BARD:PERIP Implanted: Qty: 1 on 12/27/2016 by HERBeau Daniel MD 08/26/2020 HVA-L / ID:[id number] / Cryo.Aortic Valve Tissue N/A: Chest LIFENET Implanted: Qty: 1 on 12/27/2016 by Graft/Subs Beau Cross MD titute 04/19/2021 VG-0209N / PN [id number] / [id number] Patch Periph Vascu-Grd 2x9cm Tissue N/A: Chest SYNOVIS Vg-0209n - Spn [id number] Graft/Subs LIFE Implanted: Qty: 1 on 12/27/2016 by titute TECH:SURG Beau Cross MD INNOV 11/17/2017 TFGT-25A / [id number] / Valve Tiss Trifecta W/Gld 25a Valves N/A: Heart ST ROBI Tfgt-25a - [id number] MED:CARDIA Implanted: Qty: 1 on 03/04/2016 by Beto Grewal MD Explanted: 10/24/2019 [id number] / / [id number] Ring Semiflex 30mm Mounted [id number] Valves N/A: Heart MEDTRONIC: - [id number] STRUCTURAL Implanted: Qty: 1 on 12/27/2016 by HEART Beau Cross MD Procedures Comments Procedure Name Priority Date/Time Associated Diagnosis TRANSFUSE LEUKO-REDUCED Routine 08/02/2018 PLATELETS 5:21 PM DIGITAL ADVISOR TRANSFUSE LEUKO-REDUCED Routine 08/02/2018 PLATELETS 5:21 PM DIGITAL ADVISOR TRANSFUSE LEUKO-REDUCED Routine 08/02/2018 RED BLOOD CELLS 5:21 PM DIGITAL ADVISOR TRANSFUSE LEUKO-REDUCED Routine 08/02/2018 RED BLOOD CELLS 5:21 PM DIGITAL ADVISOR after 02/17/2018 Results * Transfuse Leuko-Red PLT (08/02/2018 5:21 PM DIGITAL ADVISOR) Only the most recent of 4 results within the time period is included. * Transfuse Leuko-Red RBC (08/02/2018 5:21 PM DIGITAL ADVISOR) Only the most recent of 2 results within the time period is included. after 02/17/2018 Insurance Payer Benefit Subscriber ID Type Phone Address Plan / Group MEDICARE MEDICARE A xxxxxxxxxx Medicare B MEDICAID MEDICAID xxxxxxxxx Medicaid OF [place] Advance Directives For more information, please contact: [facility] [address] [place] [phone] Date Inactivated Comments Code Status Date [...]
--- OUTSIDE RECORDS SUMMARY | 2019-02-18 09:39 | XMS REPORT | Clinical Summary ---
Author Author JEANNINE [facility] Address Unknown Phone Unavailable Care Team Providers Care Intensive Care Nurse Name Role Phone RizviMario horner Evitachhaya PCP [...] by mouth 2 (two) times daily. Active avieih-mcmeqhjz-qmfeotz Take 36,000 0 (CREON) 36,000-114,000- units of 180,000 unit CpDR capsule lipase by mouth 3 (three) times daily. Active levothyroxine (SYNTHROID, Take 50 mcg 0 LEVOTHROID) 50 MCG tablet by mouth Every morning on an empty stomach. Active Problems Patient Care Coordination Note Cardiology Angelina Ellis [phone] Problem Noted Date Tricuspid insufficiency 12/29/2016 Overview: S/p tricuspid valvuloplasty 12/27/16 Mild protein-calorie malnutrition 12/29/2016 MRSA infection (methicillin-resistant Staphylococcus aureus) 12/27/2016 Infective endocarditis of aortic valve 12/25/2016 Severe aortic valve regurgitation 12/05/2016 ESRD (end stage renal disease) 05/26/2016 Overview: HD since 05/2016, [place], [facility]- Dr. Crane ,Dr. Bowles, AVF SLE [...] Lot Implanted Type Area Manufactur er 05/25/2017 [id number] / / [id number] Sealr Hemstat Coseal 8ml [id number] - Cement/Freedom N/A: Chest KEENE:MED [id number] ler/Adhesi DEL Implanted: Qty: 1 on 12/27/2016 by Candelario Loyola 01/23/2019 [id number] / / [id number] Patch Vasc [place] 1.65mm 1x6in Graft/Patc N/A: Chest CR 756805 - [id number] BARD:PERIP Implanted: Qty: 1 on 12/27/2016 by HERBeau Daniel MD 08/26/2020 HVA-L / ID:[id number] / Cryo.Aortic Valve Tissue N/A: Chest LIFENET Implanted: Qty: 1 on 12/27/2016 by Graft/Subs Beau Cross MD titute 04/19/2021 VG-0209N / PN [id number] / [id number] Patch Periph Vascu-Grd 2x9cm Tissue N/A: Chest SYNOVIS Vg-0209n - Spn [id number] Graft/Subs LIFE Implanted: Qty: 1 on 12/27/2016 by titute TECH:SURG Beau Cross MD INNOV 11/17/2017 TFGT-25A / [id number] / Valve Tiss Trifecta W/Gld 25a Valves N/A: Heart ST ROBI Tfgt-25a - [id number] MED:CARDIA Implanted: Qty: 1 on 03/04/2016 by Beto Grewal MD Explanted: 10/24/2019 [id number] / / [id number] Ring Semiflex 30mm Mounted [id number] Valves N/A: Heart MEDTRONIC: - [id number] STRUCTURAL Implanted: Qty: 1 on 12/27/2016 by HEART Beau Cross MD Procedures Comments Procedure Name Priority Date/Time Associated Diagnosis TRANSFUSE LEUKO-REDUCED Routine 08/02/2018 PLATELETS 5:21 PM FIELD OBSERVER TRANSFUSE LEUKO-REDUCED Routine 08/02/2018 PLATELETS 5:21 PM FIELD OBSERVER TRANSFUSE LEUKO-REDUCED Routine 08/02/2018 RED BLOOD CELLS 5:21 PM FIELD OBSERVER TRANSFUSE LEUKO-REDUCED Routine 08/02/2018 RED BLOOD CELLS 5:21 PM FIELD OBSERVER after 02/17/2018 Results * Transfuse Leuko-Red PLT (08/02/2018 5:21 PM FIELD OBSERVER) Only the most recent of 4 results within the time period is included. * Transfuse Leuko-Red RBC (08/02/2018 5:21 PM FIELD OBSERVER) Only the most recent of 2 results within the time period is included. after 02/17/2018 Insurance Payer Benefit Subscriber ID Type Phone Address Plan / Group MEDICARE MEDICARE A xxxxxxxxxx Medicare B MEDICAID MEDICAID xxxxxxxxx Medicaid OF [place] Advance Directives For more information, please contact: [facility] [address] [place] [phone] Date Inactivated Comments Code Status Date [...]
[2019-02-18 10:21] LABS: BASOPHILS % 0.5 % (0.0-1.0); BILIRUBIN,URINE NEGATIVE (NEGATIVE); CLARITY,URINE CLEAR (CLEAR); COLOR,URINE YELLOW (YELLOW); EOSINOPHILS # (AUTO) 0.3 (0.0-0.4); EOSINOPHILS % 4.3 % (0.0-6.0); HEMATOCRIT 36.6 % (38.2-49.6); HEMOGLOBIN 12.3 g/dL (14.0-18.0); KETONES,URINE NEGATIVE (NEGATIVE); LEUKOCYTE ESTERASE ,URINE TRACE (NEGATIVE); LYMPHOCYTES % 27.5 % (18.0-39.1); MEAN CORPUSCULAR HEMOGLOBIN 31.9 pg (28-32); MEAN CORPUSCULAR HGB CONC 33.6 g/dL (31-35); MEAN CORPUSCULAR VOLUME 94.8 fL (81-99); MONOCYTES # (AUTO) 0.6 (0.2-0.8); MONOCYTES % 8.5 % (4.4-11.3); NEUTROPHILS # (AUTO) 4.3 (2.1-6.9); NEUTROPHILS % 58.8 % (38.7-80.0); NITRITE,URINE NEGATIVE (NEGATIVE); PLATELET COUNT 180 x10e3/uL (140-360); PROTEIN,URINE DIPSTICK 2+ (NEGATIVE); RED BLOOD COUNT 3.86 x10e6/uL (4.3-5.7); RED CELL DISTRIBUTION WIDTH 14.5 % (11.7-14.4); URINE UROBILINOGEN 0.2 mg/dL (0.2 - 1)
[2019-02-18] MEDS ORDERED: DIATRIZOATE MEGL/DIATRIZOA SOD 30 ML BTL PO ONE (10:35)
[2019-02-18 10:39] LABS: ALBUMIN 3.7 g/dL (3.5-5.0); ALBUMIN/GLOBULIN RATIO 0.9 (0.8-2.0); ANION GAP 22.4 mmol/L (8-16); CALCIUM 8.5 mg/dL (8.4-10.2); CREATININE, SERUM 12.07 mg/dL (0.72-1.25); POTASSIUM 4.4 mmol/L (3.5-5.1)
[2019-02-18 10:45] LABS: BACTERIA,URINE FEW /HPF; EPITHELIAL CELLS,URINE FEW /LPF
[2019-02-18 10:46] LABS: AMYLASE 94 U/L (25-125); LIPASE 39 U/L (8-78)
--- NOTE | 2019-02-18 13:09 | Diagnostic Imaging Report ---
CT of the abdomen and pelvis, without contrast, 02/18/2019. History: Lower abdominal pain. Comparison: 01/14/2019. Technique: Multidetector CT scanning of the abdomen and pelvis was performed from the level of the lung bases to the inferior pubic rami without intravenous contrast. Oral contrast was administered. Coronal and sagittal multiplanar reformations were obtained. RADIATION DOSE: Total DLP: 753 mGy*cm Dose modulation, iterative reconstruction, and/or weight based adjustment of the mA/kV was utilized to reduce the radiation dose to as low as reasonably achievable. Discussion: Examination is limited without contrast. Lung bases: There is bibasilar atelectasis and left pleural thickening. Abdomen: Cholecystectomy clips are present. The liver, biliary tree, spleen, pancreas, and adrenal glands are unremarkable. Kidneys are mildly atrophic. The abdominal aorta is within normal limits. There is no bowel dilatation. Appendectomy clips are present. Diverticula are seen within the sigmoid colon with mild wall thickening but no adjacent mesenteric fat stranding. There is no evidence of free air or focal fluid position. There is no evidence of adenopathy or free fluid. Pelvis: The bladder is unremarkable. Uterus and adnexa are not visible. There is no evidence of free fluid or adenopathy. Bones and soft tissues: No acute abnormality. IMPRESSION: Sigmoid diverticulosis, with interval resolution of diverticulitis. Status post cholecystectomy, cholecystectomy, and appendectomy. Otherwise unremarkable noncontrast exam. Signed by: Tong Hamilton on 02/18/2019 1:06 PM
== END 2019-02-18 14:04 | disposition home or self-care (01) ==
LOC: ER 09:34
DX: R10.32 Left lower quadrant pain (principal); K57.31 Diverticulosis of large intestine without perforation or abscess with bleeding; I10 Essential (primary) hypertension; I51.9 Heart disease, unspecified; N28.9 Disorder of kidney and ureter, unspecified; M32.9 Systemic lupus erythematosus, unspecified
CPT/HCPCS: 36415; 74176; 80053; 81001; 82150; 83690; 85025; 99284

== ENCOUNTER 2019-03-08 09:47 | Emergency (ER) | payer MEDICARE, OTHER ==
[~2019-03-08] VITALS: Ht 190.5 cm; Wt 103.9 kg
--- OUTSIDE RECORDS SUMMARY | 2019-03-08 09:50 | XMS REPORT | Clinical Summary ---
Author Author JEANNINE [facility] Address Unknown Phone Unavailable Care Team Providers Care Mixer Operator Name Role Phone RizviMario horner Evitachhaya PCP [...] by mouth 2 (two) times daily. Active dklrlh-ngknoipx-ckpqkdn Take 36,000 0 (CREON) 36,000-114,000- units of 180,000 unit CpDR capsule lipase by mouth 3 (three) times daily. Active levothyroxine (SYNTHROID, Take 50 mcg 0 LEVOTHROID) 50 MCG tablet by mouth Every morning on an empty stomach. Active Problems Patient Care Coordination Note Cardiology Angelina Ellis [phone] Problem Noted Date Tricuspid insufficiency 12/29/2016 Overview: S/p tricuspid valvuloplasty 12/27/16 Mild protein-calorie malnutrition 12/29/2016 MRSA infection (methicillin-resistant Staphylococcus aureus) 12/27/2016 Infective endocarditis of aortic valve 12/25/2016 Severe aortic valve regurgitation 12/05/2016 ESRD (end stage renal disease) 05/26/2016 Overview: HD since 05/2016, [place], [facility]- Dr. Crane ,Dr. Bowles, AVF SLE [...] Lot Implanted Type Area Manufactur er 05/25/2017 [id number] / / [id number] Sealr Hemstat Coseal 8ml [id number] - Cement/Freedom N/A: Chest KEENE:MED [id number] ler/Adhesi DEL Implanted: Qty: 1 on 12/27/2016 by Candelario Loyola 01/23/2019 [id number] / / [id number] Patch Vasc [place] 1.65mm 1x6in Graft/Patc N/A: Chest CR 923380 - [id number] BARD:PERIP Implanted: Qty: 1 on 12/27/2016 by HERBeau Daniel MD 08/26/2020 HVA-L / ID:[id number] / Cryo.Aortic Valve Tissue N/A: Chest LIFENET Implanted: Qty: 1 on 12/27/2016 by Graft/Subs Beau Cross MD titute 04/19/2021 VG-0209N / PN [id number] / [id number] Patch Periph Vascu-Grd 2x9cm Tissue N/A: Chest SYNOVIS Vg-0209n - Spn [id number] Graft/Subs LIFE Implanted: Qty: 1 on 12/27/2016 by titute TECH:SURG Beau Cross MD INNOV 11/17/2017 TFGT-25A / [id number] / Valve Tiss Trifecta W/Gld 25a Valves N/A: Heart ST ROBI Tfgt-25a - [id number] MED:CARDIA Implanted: Qty: 1 on 03/04/2016 by Beto Grewal MD Explanted: 10/24/2019 [id number] / / [id number] Ring Semiflex 30mm Mounted [id number] Valves N/A: Heart MEDTRONIC: - [id number] STRUCTURAL Implanted: Qty: 1 on 12/27/2016 by HEART Beau Cross MD Procedures Comments Procedure Name Priority Date/Time Associated Diagnosis TRANSFUSE LEUKO-REDUCED Routine 08/02/2018 PLATELETS 5:21 PM SPECIMEN COLLECTOR TRANSFUSE LEUKO-REDUCED Routine 08/02/2018 PLATELETS 5:21 PM SPECIMEN COLLECTOR TRANSFUSE LEUKO-REDUCED Routine 08/02/2018 RED BLOOD CELLS 5:21 PM SPECIMEN COLLECTOR TRANSFUSE LEUKO-REDUCED Routine 08/02/2018 RED BLOOD CELLS 5:21 PM SPECIMEN COLLECTOR after 03/07/2018 Results * Transfuse Leuko-Red PLT (08/02/2018 5:21 PM SPECIMEN COLLECTOR) Only the most recent of 4 results within the time period is included. * Transfuse Leuko-Red RBC (08/02/2018 5:21 PM SPECIMEN COLLECTOR) Only the most recent of 2 results within the time period is included. after 03/07/2018 Insurance Payer Benefit Subscriber ID Type Phone Address Plan / Group MEDICARE MEDICARE A xxxxxxxxxx Medicare B MEDICAID MEDICAID xxxxxxxxx Medicaid OF [place] Advance Directives For more information, please contact: [facility] [address] [place] [phone] Date Inactivated Comments Code Status Date [...]
[2019-03-08] MEDS ORDERED: METRONIDAZOLE 500MG/NS 100ML 100 ML IV STA (09:55)
[2019-03-08] MEDS ORDERED: MORPHINE SULFATE INJ 4 MG/ML INJ 1ML IV STA (09:55)
[2019-03-08] MEDS ORDERED: SODIUM CHLORIDE 0.9% 1000ML 1,000 ML IV STA (09:55)
[2019-03-08] MEDS ORDERED: ONDANSETRON HCL INJ 2MG/ML 2ML 2 MG/ML VIAL IV STA (09:55)
[2019-03-08] MEDS ORDERED: DIATRIZOATE MEGL/DIATRIZOA SOD 30 ML BTL PO ONE (10:26)
[2019-03-08 10:54] LABS: BASOPHILS % 0.5 % (0.0-1.0); EOSINOPHILS # (AUTO) 0.3 (0.0-0.4); EOSINOPHILS % 3.5 % (0.0-6.0); HEMATOCRIT 35.6 % (38.2-49.6); HEMOGLOBIN 12.5 g/dL (14.0-18.0); LYMPHOCYTES # (AUTO) 2.1 (1.0-3.2); LYMPHOCYTES % 27.1 % (18.0-39.1); MEAN CORPUSCULAR HEMOGLOBIN 32.5 pg (28-32); MEAN CORPUSCULAR HGB CONC 35.1 g/dL (31-35); MEAN CORPUSCULAR VOLUME 92.5 fL (81-99); MONOCYTES # (AUTO) 0.7 (0.2-0.8); MONOCYTES % 8.8 % (4.4-11.3); NEUTROPHILS # (AUTO) 4.7 (2.1-6.9); PLATELET COUNT 196 x10e3/uL (140-360); RED BLOOD COUNT 3.85 x10e6/uL (4.3-5.7); RED CELL DISTRIBUTION WIDTH 13.6 % (11.7-14.4)
[2019-03-08 11:16] LABS: ALBUMIN 3.7 g/dL (3.5-5.0); ALBUMIN/GLOBULIN RATIO 0.7 (0.8-2.0); ANION GAP 25.3 mmol/L (8-16); CALCIUM 8.7 mg/dL (8.4-10.2); CREATININE, SERUM 9.99 mg/dL (0.72-1.25); POTASSIUM 4.3 mmol/L (3.5-5.1)
--- NOTE | 2019-03-08 12:19 | Diagnostic Imaging Report ---
Exam: CT abdomen and pelvis Comparison: February 18, 2019 Clinical history: Abdominal pain Technique: Helical images of the abdomen and pelvis were obtained after IV contrast administration DOSE REDUCTION: The exams was performed according to the departmental dose-optimization program which includes automated exposure control, adjustment of the mA and/or kV according to patient size and/or use of iterative reconstruction technique. Findings: The lung bases are clear. There is no evidence of pleural effusion. Hypertrophic changes of the left ventricle is noted. The patient is status post median sternotomy. Pleural plaques are noted in the left lung base. The liver, spleen, pancreas, and adrenal glands are unremarkable. The gallbladder has been removed. The kidneys are atrophic. The small and large bowels are normal in caliber without evidence of obstruction. Significant retained feces is noted in the sigmoid colon and rectum most consistent with constipation. The appendix has been removed. The bladder, prostate, and seminal vesicles are unremarkable. There is no evidence of lymphadenopathy or free fluid. Aorta and IVC are normal in caliber. Impression: 1. Significant retained feces in the rectum consistent with constipation 2. Status post cholecystectomy and appendectomy. 3. Moderate wedge deformity of the T11 and T10 vertebral bodies consistent with compression fractures unchanged compared to the prior study. 4. Bilateral renal atrophy consistent with end-stage renal disease. 5. Cardiomegaly. Signed by: Dr. Dre Knight MD on 03/08/2019 12:15 PM
[2019-03-08] MEDS ORDERED: IOPAMIDOL 370 MG/ML 200 ML INFUS..BTL INJ ONE (13:03)
[2019-03-08] MEDS ORDERED: SODIUM CHLORIDE 0.9% 50ML 50 ML ONE (13:03)
== END 2019-03-08 12:42 | disposition home or self-care (01) ==
LOC: ER 09:47
DX: R10.30 Lower abdominal pain, unspecified (principal); N18.3 Chronic kidney disease, stage 3 (moderate)
CPT/HCPCS: 36415; 74177; 80053; 83690; 85025; 99284; J2270; J2405; J7030; Q9967

== ENCOUNTER 2019-06-09 21:37 | Inpatient (IN) | payer MEDICARE, OTHER ==
[~2019-06-09] VITALS: Ht 190.5 cm; Wt 106.1 kg
[2019-06-09] MEDS ORDERED: ACETAMINOPHEN 325 MG TAB PO STA (23:14)
[2019-06-09] MEDS ORDERED: ONDANSETRON HCL INJ 2MG/ML 2ML 2 MG/ML VIAL IV STA (23:14)
[2019-06-09] MEDS ORDERED: SODIUM CHLORIDE 0.9% 1000ML 1,000 ML IV SCH (23:15)
[2019-06-09] MEDS ORDERED: MORPHINE SULFATE 5 MG/ML VIAL IV ONE (23:15)
[2019-06-09 23:27] LABS: BASOPHILS % 0.3 % (0.0-1.0); EOSINOPHILS # (AUTO) 0.4 (0.0-0.4); EOSINOPHILS % 3.7 % (0.0-6.0); HEMATOCRIT 35.8 % (38.2-49.6); HEMOGLOBIN 12.3 g/dL (14.0-18.0); LYMPHOCYTES # (AUTO) 2.3 (1.0-3.2); LYMPHOCYTES % 19.6 % (18.0-39.1); MEAN CORPUSCULAR HEMOGLOBIN 32.8 pg (28-32); MEAN CORPUSCULAR HGB CONC 34.4 g/dL (31-35); MEAN CORPUSCULAR VOLUME 95.5 fL (81-99); MONOCYTES # (AUTO) 1.1 (0.2-0.8); MONOCYTES % 9.7 % (4.4-11.3); NEUTROPHILS # (AUTO) 7.8 (2.1-6.9); NEUTROPHILS % 66.2 % (38.7-80.0); PLATELET COUNT 178 x10e3/uL (140-360); RED BLOOD COUNT 3.75 x10e6/uL (4.3-5.7); RED CELL DISTRIBUTION WIDTH 14.2 % (11.7-14.4)
[2019-06-09 23:41] LABS: ALBUMIN 3.7 g/dL (3.5-5.0); ALBUMIN/GLOBULIN RATIO 0.8 (0.8-2.0); ANION GAP 27.5 mmol/L (8-16); CREATININE, SERUM 13.07 mg/dL (0.72-1.25); POTASSIUM 4.5 mmol/L (3.5-5.1)
--- NOTE | 2019-06-10 00:02 | Diagnostic Imaging Report ---
X-ray right tib-fib 2 views HISTORY: Pain. COMPARISON: None available. FINDINGS: Bones: Focal lytic lucency and loss of cortical definition along the proximal fibular shaft, mottled lucencies within the proximal fibular medullary cavity. Osseous alignment is within normal limits. Joints: The joint spaces are well-maintained. Soft tissues: Soft tissue edema about the calf, worst in the proximal/mid right lateral calf soft tissues. Vascular calcifications. IMPRESSION: Probable osteomyelitis of the proximal fibular shaft. Recommend right proximal fibular MRI with contrast. Soft tissue edema about the calf, worst in the proximal/mid right lateral calf soft tissues. Signed by: Dean Ferguson DO on 06/09/2019 11:58 PM
[2019-06-10] MEDS ORDERED: MEROPENEM 1GM 100 ML IV SCH (06:00)
--- NOTE | 2019-06-10 07:12 | NUR ---
report given to case rn
[2019-06-10] MEDS ORDERED: MEROPENEM 1GM 100 ML IV ONE (08:00)
--- NOTE | 2019-06-10 10:55 | NUR ---
Seen and examined by Dr. Rizvi, made new orders and carried out.
--- NOTE | 2019-06-10 11:15 | NUR ---
Dr. CELESTE seen and evaluate patient. Made order for Hemodialysis. HD Nurses called and informed.
[2019-06-10] MEDS ORDERED: VANCOMYCIN 1GM/NS 250 ML 250 ML IV ONE (11:30)
--- NOTE | 2019-06-10 12:32 | NUR ---
received report from BILLBOARD ERECTOR HELPER, Beth; awaiting pt's arrival to unit.
--- NOTE | 2019-06-10 12:40 | NUR ---
Consent signed by patient
--- NOTE | 2019-06-10 12:45 | NUR ---
pt arrived via wheelchair to room 288 with sterile technician; pt awake, alert, ambulatory, no signs of distress. will continue to monitor.
[2019-06-10 12:46] VITALS: BP 132/81
[2019-06-10 13:22] VITALS: BP 132/81
[2019-06-10] MEDS: PANTOPRAZOLE SOD 40 MG TABEC PO SCH (13:57)
[2019-06-10] MEDS ORDERED: SODIUM CHLORIDE 0.9% 250ML 250 ML ONE (13:59)
[2019-06-10 16:20] VITALS: BP 122/77
[2019-06-10] MEDS ORDERED: GEMFIBROZIL 600 MG TAB PO SCH (17:00)
--- NOTE | 2019-06-10 17:01 | NUR ---
spoke with dialysis nurse; due to delay in hepatic panels, pt's dialysis that was supposed to take place this afternoon has been postponed.
--- NOTE | 2019-06-10 17:31 | Consultation ---
DATE OF CONSULTATION: 06/10/2019 SUBJECTIVE: The patient is a 34-year-old gentleman, well known to me, underlying history of end-stage renal disease, diabetes, prior history of lupus, congestive heart failure, anemia, secondary to hyperparathyroidism, developed an abscess or a boil on the outer aspect of his right lower extremity with redness around it. Had a little I and D done. Sent home on antibiotics with leg started hurting more. He felt feverish, came into the hospital. There is an area of redness surrounding the dressing which was placed on the area of I and D. He is scheduled for dialysis. Denies shortness of breath, nausea, vomiting, or chills. ALLERGIES: NO APPARENT DRUG ALLERGIES. HOME MEDICATIONS: Not reconciled yet, but he has been taking folic acid 1 mg daily, gemfibrozil, Lopid 600 mg p.o. b.i.d., which I am going to stop, labetalol 200 mg p.o. b.i.d. He is on morphine sulfate, ondansetron, pantoprazole, Carafate 1 g p.o. b.i.d. SOCIAL HISTORY: Does not smoke or drink. FAMILY HISTORY: Significant for hypertension and diabetes. CURRENT LABORATORY DATA: White count 11.7 with a hemoglobin 12.3, potassium 4.5, creatinine 13. PHYSICAL EXAMINATION: GENERAL: Awake, alert, lying supine, in no apparent distress. VITAL SIGNS: Blood pressure 111/75, pulse rate 75, afebrile, oxygen saturation 100% on room air. HEAD AND NECK: Cornea clear. Oral mucosa moist. Neck veins flat. LUNGS: Bibasilar rales. HEART: S1, S2 audible. ABDOMEN: Soft, nontender. No apparent visceromegaly. EXTREMITIES: Lower extremity has no edema, but see description above. IMPRESSION AND PLAN: End-stage renal disease, fluid overload, anemia, hypertension. Plan on hemodialysis. Agree with antibiotics and hospital admission. Please see orders. MD AVIVA Roca/DIMITRIOS /[id number]
[2019-06-10] MEDS: SUCRALFATE 1 GM TAB PO SCH (17:45)
[2019-06-10] MEDS: LABETALOL HCL 200 MG TAB PO SCH (17:45)
[2019-06-10] MEDS: LACTOBACILLUS ACIDOPHILUS CAPSULE PO SCH (17:45)
--- NOTE | 2019-06-10 18:07 | History and Physical ---
HISTORY OF PRESENT ILLNESS: This is a 34-year-old young male patient with severe chronic illness with end-stage renal disease, on hemodialysis, lupus nephritis, immunocompromised, hypertensive heart disease, and status post valvular replacement and the patient has infective endocarditis , _presented to emergency room with complaint of right lower leg cellulitis and abscess. The patient has ulceration. Drainage was done. The patient was put on clindamycin and Bactrim, but the patient had not improved PAST SURGICAL HISTORY: The patient had hemodialysis access placement and VALVE SX . REVIEW OF SYSTEMS: Multisystem review of systems examination has been done. SOCIAL HISTORY: Denies smoking. Denies using alcohol. FAMILY HISTORY: Hypertension, diabetes mellitus PHYSICAL EXAMINATION: GENERAL: He is a young male patient, lying in bed, not in any acute distress. VITAL SIGNS: Temperature 99 . P -78 , RR 16 , BP 116 /83 _ LUNGS: Bilateral equal fair entry. No rales, no rhonchi. HEART: S1, S2 regular. No murmur. No gallop. ABDOMEN: Soft. Bowel sounds present. NEUROLOGIC: No new focal neurologic deficit. ADMITTING INPATIENT DIAGNOSES: Right lower leg cellulitis, failed outpatient treatment in an immunocompromised patient with lupus and end-stage renal disease. The patient will be admitted with the above diagnoses. The patient will be given IV Merrem and vancomycin. We will obtain ID and Nephrology consultations. PLAN: The patient will be admitted with the above diagnoses. WILL GIVE IV ABX , ID CONSULT . MD HARJINDER Lawrence/MODL /[id number] MTDIvelisse
--- NOTE | 2019-06-10 19:27 | Consultation ---
DATE OF CONSULTATION: 06/10/2019 INFECTIOUS DISEASE CONSULT REASON FOR CONSULTATION: Abscess. Thank you, Dr. Rizvi, for asking me to see this patient. HISTORY OF PRESENT ILLNESS: The patient is a 34-year-old man, who was referred for abscess. He presented to the emergency department with progressive pain of the right leg. He developed small pimple of the lateral right leg 2 days prior to arrival and popped it. Later, he developed worsening pain causing him to cut his hemodialysis sessions short. Subsequently, he visited with the primary care provider, who incised the lesion and expressed some pus. The patient received intramuscular injection of ceftriaxone and prescription for clindamycin. Despite taking 3 doses of the antibiotic, the pain worsened, so the patient came to the emergency department. X-ray of the right leg done in the emergency room showed a probable acute osteomyelitis of the right fibula. PAST MEDICAL HISTORY: Systemic lupus erythematosus, hypertension, hyperlipidemia, end-stage renal disease on hemodialysis, ? Aortic regurgitation and endocarditis. PAST SURGICAL HISTORY: Aortic valve replacement twice, cholecystectomy, appendectomy, and AV fistula creation. ALLERGIES: NO KNOWN DRUG ALLERGIES. MEDICATIONS: See MAR. The patient received vancomycin 1 g IV piggyback once and meropenem 1 g IV piggyback once. IMMUNIZATION: The patient received influenza vaccine in March 2019. Also, he received pneumococcal vaccination prior to admission. FAMILY HISTORY: The mother has hypertension. SOCIAL HISTORY: No alcohol, tobacco, or recreational drug use. REVIEW OF SYSTEMS: As per History of Present Illness. The patient denies fever, chills, cough, shortness of breath, nausea, vomiting, diarrhea, and abdominal pain. He had documented 101 temperature on arrival in the emergency room, but no recurrent fever since. PHYSICAL EXAMINATION: GENERAL: No acute distress and does not appear toxic. VITAL SIGNS: T-max 98.4, pulse rate 87, respiratory rate 20, blood pressure 122/77, and weight 234 pounds. HEENT: Normocephalic. There is no icterus or injection of conjunctiva. There is no ear or nasal discharge. Moist oral mucosa. No pharyngeal erythema or exudate. NECK: Supple. No meningismus. LUNGS: Clear to auscultation bilaterally. HEART: Normal S1 and S2. Regular. ABDOMEN: Soft and nontender. EXTREMITIES: There is + edema of the right leg with a small incision on the lateral aspect of the mid right leg. There is tenderness and induration of the lateral right leg. There is no edema, clubbing, or cyanosis of the rest of the extremities. SKIN: There is a small tender and dime-size lesion of the lateral right leg. OCEAN LIFEGUARD SPECIALIST: Awake, alert, oriented to person, place, and time. Nonfocal. LABORATORY AND DIAGNOSTICS: 06/09/2019 WBC 11,790, hemoglobin 12.3, platelet 178,000, neutrophils 66.2, lymphocytes 19.6, monocytes 9.7, eosinophils 3.7, and basophils 0.3. Blood glucose 101. Blood culture is pending. IMPRESSION: 1. Cellulitis and abscess of the right leg. 2. Systemic lupus erythematosus. 3. End-stage renal disease, on hemodialysis. PLAN: 1. Check MRI of the right leg and C-reactive protein. 2. Continue vancomycin 1.25 g IV piggyback post hemodialysis. 3. Elevate right lower extremity and apply warm compresses. MD JULIETA Cristobal/DIMITRIOS /[id number] MTDD
[2019-06-10 20:00] VITALS: BP 131/85
[2019-06-10 20:30] VITALS: BP 131/85
[2019-06-10] MEDS: VANCOMYCIN HCL 1.25 GM in SODIUM CHLORIDE 0.9% 250ML 250 ML IV SCH (23:59)
[2019-06-11] VITALS: BP 116/73
[2019-06-11 04:00] VITALS: BP 111/56
[2019-06-11 05:39] LABS: BASOPHILS % 0.4 % (0.0-1.0); EOSINOPHILS # (AUTO) 0.4 (0.0-0.4); EOSINOPHILS % 5.4 % (0.0-6.0); HEMATOCRIT 33.4 % (38.2-49.6); HEMOGLOBIN 11.4 g/dL (14.0-18.0); LYMPHOCYTES # (AUTO) 0.9 (1.0-3.2); LYMPHOCYTES % 12.4 % (18.0-39.1); MEAN CORPUSCULAR HEMOGLOBIN 32.9 pg (28-32); MEAN CORPUSCULAR HGB CONC 34.1 g/dL (31-35); MEAN CORPUSCULAR VOLUME 96.5 fL (81-99); MONOCYTES # (AUTO) 0.9 (0.2-0.8); MONOCYTES % 12.7 % (4.4-11.3); NEUTROPHILS # (AUTO) 4.9 (2.1-6.9); NEUTROPHILS % 68.7 % (38.7-80.0); PLATELET COUNT 159 x10e3/uL (140-360); RED BLOOD COUNT 3.46 x10e6/uL (4.3-5.7); RED CELL DISTRIBUTION WIDTH 14.4 % (11.7-14.4)
[2019-06-11 06:00] LABS: ALBUMIN 3.4 g/dL (3.5-5.0); ALBUMIN/GLOBULIN RATIO 0.8 (0.8-2.0); ANION GAP 20.3 mmol/L (8-16); CALCIUM 8.1 mg/dL (8.4-10.2); CREATININE, SERUM 8.85 mg/dL (0.72-1.25); POTASSIUM 4.3 mmol/L (3.5-5.1)
--- NOTE | 2019-06-11 06:39 | NUR ---
Patient is resting comfortably in the bed, bed is in lowest position and call hong is within reach.
[2019-06-11 08:00] VITALS: BP 123/60
[2019-06-11 08:10] VITALS: BP 123/60
[2019-06-11] MEDS: PANTOPRAZOLE SOD 40 MG TABEC PO SCH (08:54)
[2019-06-11] MEDS: SUCRALFATE 1 GM TAB PO SCH ×2 (08:54→16:23)
[2019-06-11] MEDS: FOLIC ACID 1 MG TAB PO SCH (08:54)
[2019-06-11] MEDS: LACTOBACILLUS ACIDOPHILUS CAPSULE PO SCH ×2 (08:54→16:23)
[2019-06-11] MEDS: LABETALOL HCL 200 MG TAB PO SCH ×2 (08:55→17:00)
--- NOTE | 2019-06-11 13:36 | Diagnostic Imaging Report ---
TECHNIQUE: Magnetic resonance imaging of the right tibia fibula was performed WITHOUT injected contrast. HISTORY: Pain, cellulitis osteomyelitis COMPARISON: None available. FINDINGS: Bone marrow signal is normal. No fracture or osteonecrosis. No T1 replacement. Diffuse subcutaneous edema and swelling. No fluid collection. IMPRESSION: Edema/cellulitis of the right lower extremity. No abscess or osteomyelitis. Signed by: Dr. Oscar Arita M.D. on 06/11/2019 1:33 PM
--- NOTE | 2019-06-11 15:18 | NUR ---
Paged to notify of MRI results. Awaiting call back
--- NOTE | 2019-06-11 15:32 | NUR ---
Called [facility] and spoke with Juana to notify patient to have HD 06/12/19 per .
[2019-06-11 16:00] VITALS: BP 122/68
[2019-06-11 20:00] VITALS: BP 128/72
--- NOTE | 2019-06-11 20:06 | NUR ---
Received change of shift report from AM nurse. Walking rounds completed.
[2019-06-12] VITALS (9 sets, daily range): BP systolic 116–138; BP diastolic 58–79
--- NOTE | 2019-06-12 07:13 | NUR ---
PATIENT OUT OF BED TO CHAIR TALKING TO FAMILY MEMBER, NO DISTRESS NOTED. REDNESS AND SWELLING TI RIGHT LEG. TELEMETRY BOX IN PLACE. BED IN LOWER POSITION, CALL LIGHT AT REACH.
[2019-06-12] MEDS: SUCRALFATE 1 GM TAB PO SCH ×2 (07:30→16:30)
[2019-06-12] MEDS: LACTOBACILLUS ACIDOPHILUS CAPSULE PO SCH ×2 (09:00→17:00)
[2019-06-12] MEDS: LABETALOL HCL 200 MG TAB PO SCH ×2 (09:00→17:00)
[2019-06-12] MEDS: SEVELAMER CARBONATE 800 MG TAB PO SCH ×2 (12:36→17:00)
[2019-06-12] MEDS: FOLIC ACID 1 MG TAB PO SCH (12:36)
[2019-06-12] MEDS: PANTOPRAZOLE SOD 40 MG TABEC PO SCH (12:36)
--- NOTE | 2019-06-12 13:46 | Progress Note ---
DATE: 06/12/2019 SUBJECTIVE: Right leg is much better. No drainage. Still some swelling. Redness is improved. Pain is improved. Able to weight bear. OBJECTIVE: VITAL SIGNS: Temperature 96.7, pulse 76, blood pressure 116/69. CHEST: Clear. EXTREMITIES: Trace to 1+ edema on the right, none on the left. VASCULAR: Shows patent left upper extremity AV fistula. LABORATORY DATA: Hemoglobin is 11.4, K 4.3. No phosphorus available. Creatinine 8.8, BUN 39, serum CO2 of 25. ASSESSMENT: 1. End-stage renal disease, underlying lupus with nephritis, presumably the cause. 2. History of secondary hyperparathyroidism. 3. Hyperphosphatemia. 4. History of recurrent fluid retention. PLAN: Resume binders. Hemodialysis today 4-hour run, 2 potassium bath, F180 filter, blood flow rate 400 mL/minute, dialysate flow rate 800 mL/minute. Usual 4 L ultrafiltration will be targeted. Antibiotics per Infectious Disease services. We will follow along. MD BRITTANI CrockerK/MODL /[id number]
--- NOTE | 2019-06-12 15:07 | NUR ---
HEMODIALYSIS TREATMENT IN PROGRESS. PATIENT IN BED WITH NO DISTRESS.
[2019-06-12] MEDS: VANCOMYCIN HCL 1.25 GM in SODIUM CHLORIDE 0.9% 250ML 250 ML IV SCH (20:14)
[2019-06-13] VITALS (7 sets, daily range): BP systolic 119–127; BP diastolic 58–68
--- NOTE | 2019-06-13 07:05 | NUR ---
PATIENT OUT OF BED TO RECLINING CHAIR WATCHING TV, NO DISTRESS NOTED. CALL LIGHT REACH.
[2019-06-13] MEDS: SUCRALFATE 1 GM TAB PO SCH (07:30)
[2019-06-13] MEDS: SEVELAMER CARBONATE 800 MG TAB PO SCH (08:30)
[2019-06-13] MEDS: LACTOBACILLUS ACIDOPHILUS CAPSULE PO SCH (09:18)
[2019-06-13] MEDS: LABETALOL HCL 200 MG TAB PO SCH (09:18)
[2019-06-13] MEDS: PANTOPRAZOLE SOD 40 MG TABEC PO SCH (09:18)
[2019-06-13] MEDS: FOLIC ACID 1 MG TAB PO SCH (09:18)
--- NOTE | 2019-06-13 10:34 | NUR ---
Called Dr. Bowles and cleared from his perspective to discharge patient, and to resume hemodialysis out patient as scheduled. Dr. Gauthier this morning during rounds stated patient could go home on abx by mouth and he said patient already have abx at home.
--- NOTE | 2019-06-13 11:03 | NUR ---
PATIENT ASSISTED WITH SHOWER, BACK TO BED WITH CALL LIGHT AT REACH.
--- NOTE | 2019-06-13 11:50 | NUR ---
PATIENT DISCHARGED HOME. DISCHARGE INSTRUCTIONS AND FOLLOW UP GIVEN TO PATIENT, HE VERBALIZED UNDERSTANDING. IV TO RIGHT FOREARM REMOVED WITH TIP INTACT. ALL PERSONAL ITEMS TAKEN WITH PATIENT. REFUSED WHEEL CHAIR BUT WAS ACCOMPANIED BY HOSPITAL STAFF TO FRONT LOBBY IN STABLE CONDITION.
--- NOTE | 2019-06-13 12:51 | Discharge Summary ---
He is a 34-year-old male patient presented with right leg cellulitis. ADMITTING IMPRESSION AND DIAGNOSES: Right leg cellulitis with abscess, which he had failed outpatient treatment. The patient is immunocompromised with end-stage renal disease on hemodialysis and lupus nephritis, and he had prosthetic valve and hypertension. HOSPITAL COURSE SUMMARY: The patient was admitted with the above diagnoses. Wound care was given and treated. The patient was treated with IV clindamycin and IV vancomycin was given. The patient has ID consultation done, Dr. Gauthier and also the patient was given hemodialysis treatment by his modular set crew member. The patient received IV antibiotics and now upon stabilization, the patient will be discharged home on oral clindamycin to take it for 5 more days. The patient was advised to follow up with me in next week. The patient will be discharged home today. The patient to continue outpatient hemodialysis. MD HARJINDER Lawrence/DIMITRIOS /[id number]
[2019-07-08] MEDS ORDERED: RENVELA0.8 GM PO (06:47)
[2019-07-08] MEDS ORDERED: ASPIRIN81 MG PO (06:47)
[2019-07-08] MEDS ORDERED: SUCRALFATE1 GM PO (07:03)
[2019-07-08] MEDS ORDERED: GLIMEPIRIDE2 MG PO (07:29)
[2019-07-08] MEDS ORDERED: RENAGEL800 MG PO (08:24)
== END 2019-06-13 11:43 | disposition home or self-care (01) | DRG 602 ==
LOC: ER 21:37 → ERHOLD 06-10 02:51 → MED/SURG3 06-10 12:45
PROVIDERS: ADMIT Internal Medicine; ATTEND Internal Medicine
PROC: 5A1D70Z Performance of Urinary Filtration, Intermittent, Less than 6 Hours Per Day (ICD-10-PCS; principal; 2019-06-10)
DX: L03.115 Cellulitis of right lower limb (principal); N18.6 End stage renal disease; D84.9 Immunodeficiency, unspecified; N25.81 Secondary hyperparathyroidism of renal origin; I13.11 Hypertensive heart and chronic kidney disease without heart failure, with stage 5 chronic kidney disease, or end stage renal disease; L93.0 Discoid lupus erythematosus; Z99.2 Dependence on renal dialysis; D63.1 Anemia in chronic kidney disease; E83.39 Other disorders of phosphorus metabolism; M32.14 Glomerular disease in systemic lupus erythematosus
CPT/HCPCS: 36415; 80053; 83605; 85025; 86140; 87040; 87340; 90962; 99284; J2270; J2405; J3370; J7030; J7050

== ENCOUNTER 2019-12-30 19:44 | Emergency (ER) | payer OTHER ==
[~2019-12-30] VITALS: Ht 190.5 cm; Wt 112.0 kg
[~2019-12-30 19:44] MED LIST changes: +ASPIRIN81 MG PO; +GLIMEPIRIDE2 MG PO; +RENAGEL800 MG PO; +RENVELA0.8 GM PO
[2019-12-30] MEDS ORDERED: ACETAMINOPHEN 325 MG TAB PO STA (19:54)
[2019-12-30] MEDS ORDERED: IBUPROFEN 600 MG TAB PO STA (20:23)
--- NOTE | 2019-12-30 21:04 | Emergency Department Note ---
History of Present Illnes History of Present Illness Chief Complaint: COVID PUI History of Present Illness This is a 34 year old male with one day h/o fever myalgias. Historian: Patient Arrival Mode: Car Onset (how long ago): day(s) (1) Severity: mild Onset quality: sudden Duration (how long): day(s) (1) Progression: worsening Associated symptoms: Reports cough, Reports fever/chills, Reports malaise Treatments prior to arrival: none Past Medical/Family History Physician Review I have reviewed the patient's past medical and family history. Any updates have been documented here. Past Medical History Recent Fever: Yes Clinical Suspicion of Infectio: Yes New/Unexplained Change in Ment: No Past Medical History: Hypertension, Diabetes, ESRD, Hemodyalisis, Chronic Kidney Disease Other Medical History: HLD, UTI, Lupus, diverticulitis Past Surgical History: Cholecysctectomy, Appendectomy Other Surgery: ARTIFICAL HEART VALVE LEFT ARM FISTULA Social History Smoking Cessation: Never Smoker Alcohol Use: None Any Illegal Drug Use: No Physically hurt or threatened: No Other Last Tetanus: UTD Any Pre-Existing Lines (PICC,: Yes (Left arm fistula ) Review of Systems Review of Systems Constitutional: Reports fever, Reports malaise, Reports weakness EENTM: Reports no symptoms Cardiovascular: Reports no symptoms Respiratory: Reports no symptoms Gastrointestinal: Reports no symptoms Genitourinary: Reports no symptoms Musculoskeletal: Reports no symptoms Integumentary: Reports no symptoms Neurological: Reports no symptoms Psychological: Reports no symptoms Endocrine: Reports no symptoms Hematological/Lymphatic: Reports no symptoms Physical Exam Related Data Allergies: Coded Allergies: No Known Drug Allergies (Unverified Allergy, Unknown, 07/15/18) Triage Vital Signs Vital Signs Date Time Temp Pulse Resp B/P (MAP) Pulse Ox O2 Delivery O2 Flow Rate FiO2 12/30/19 20:17 101.3 109 20 154/99 100 Room Air Vital signs reviewed: Yes Physical Exam CONSTITUTIONAL Constitutional: Present well-developed, Present well-nourished HENT HENT: Present normocephalic, Present atraumatic, Present oropharynx clear/moist, Present nose normal HENT L/R: Present left ext ear normal, Present right ext ear normal EYES Eyes: Reports PERRL, Reports conjunctivae normal NECK Neck: Present ROM normal PULMONARY Pulmonary: Present effort normal, Present breath sounds normal CARDIOVASCULAR Cardiovascular: Present tachycardia GASTROINTESTINAL Abdominal: Present soft, Present nontender, Present bowel sounds normal GENITOURINARY Genitourinary: Present exam deferred SKIN Skin: Present warm, Present dry MUSCULOSKELETAL Musculoskeletal: Present ROM normal NEUROLOGICAL Neurological: Present alert, Present oriented x 3, Present no gross motor or sensory deficits PSYCHOLOGICAL Psychological: Present mood/affect normal, Present judgement normal Assessment & Plan Medical Decision Making MDM 34 yom with fever and myalgias. (+) contact with family members with similiar symptoms. COVID-19 highly suspected but testing deferred secondary to stable vital signs and high oxygen saturation on RA. Patient to be given Rx Azithromycin and albuterol. Patient to be given resources for outpatient testing center- Assessment & Plan Final Impression: (1) Viral syndrome Depart Disposition: HOME, SELF-CARE Last Vital Signs Date Time Temp Pulse Resp B/P (MAP) Pulse Ox O2 Delivery O2 Flow Rate FiO2 12/30/19 20:17 101.3 109 20 154/99 100 Room Air Home Meds Reported Medications Sevelamer Hcl (RENAGEL) 800 Mg Tablet, 2400 MG PO TID, TAB 07/08/19 Sucralfate (SUCRALFATE) 1 Gm Tablet, 1 GM PO BID PRN for GI UPSET, TAB 07/08/19 Aspirin (ASPIRIN) 81 Mg Tab.chew, 81 MG PO DAILY 07/08/19 Sevelamer Carbonate (RENVELA) 0.8 Gm Powd.pack, PO AC 07/08/19 Lactobacillus Acidophilus (ACIDOPHILUS) 1 Each Tab.chew, 1 CAP PO BID, #28 01/16/19 Gemfibrozil (GEMFIBROZIL) 600 Mg Tablet, BID 12/10/15 Pantoprazole Sodium* (PROTONIX) 40 Mg Tablet.dr, 40 MG PO DAILY, TAB 12/10/15 Medications in the ED Acetaminophen 975 mg ONCE STAT PO ; Start 12/30/19 at 19:54; Stop 12/30/19 at 20:11; Status DC Ibuprofen 600 mg ONCE STAT PO Last administered on 12/30/19at 20:30; Admin Dose 600 MG; Start 12/30/19 at 20:23; Stop 12/30/19 at 20:35; Status DC KELSIE BLANCO DO Dec 30, 2019 21:04
== END 2019-12-30 20:38 | disposition home or self-care (01) ==
LOC: ER 20:33
DX: B34.9 Viral infection, unspecified (principal); R50.9 Fever, unspecified; M79.10 Myalgia, unspecified site; I12.0 Hypertensive chronic kidney disease with stage 5 chronic kidney disease or end stage renal disease; E11.22 Type 2 diabetes mellitus with diabetic chronic kidney disease; N18.6 End stage renal disease; Z99.2 Dependence on renal dialysis; M32.9 Systemic lupus erythematosus, unspecified
CPT/HCPCS: 99282

== ENCOUNTER 2020-04-14 07:58 | Observation (INO) | payer MEDICARE, OTHER ==
[~2020-04-14] VITALS: Ht 190.5 cm; Wt 103.9 kg
[2020-04-14 08:49] LABS: BASOPHILS # (AUTO) 0.1 (0.0-0.1); BASOPHILS % 0.6 % (0.0-1.0); EOSINOPHILS # (AUTO) 0.1 (0.0-0.4); HEMOGLOBIN 12.6 g/dL (14.0-18.0); LYMPHOCYTES % 24.3 % (18.0-39.1); MEAN CORPUSCULAR HEMOGLOBIN 28.6 pg (28-32); MEAN CORPUSCULAR HGB CONC 32.3 g/dL (31-35); MEAN CORPUSCULAR VOLUME 88.6 fL (81-99); MONOCYTES # (AUTO) 0.7 (0.2-0.8); MONOCYTES % 8.4 % (4.4-11.3); NEUTROPHILS # (AUTO) 5.5 (2.1-6.9); PLATELET COUNT 162 x10e3/uL (140-360); RED CELL DISTRIBUTION WIDTH 18.3 % (11.7-14.4)
[2020-04-14 09:05] LABS: ALBUMIN 4.4 g/dL (3.5-5.0); ALBUMIN/GLOBULIN RATIO 0.9 (0.8-2.0); CALCIUM 9.6 mg/dL (8.4-10.2); CREATININE, SERUM 11.83 mg/dL (0.72-1.25)
[2020-04-14 09:11] LABS: CREATINE KINASE MB 3.9 ng/mL (0-5.0)
[2020-04-14] MEDS ORDERED: SODIUM CHLORIDE FLUSH 10 ML SYR INJ PRN (09:30)
[2020-04-14] MEDS ORDERED: MORPHINE SULFATE INJ 4 MG/ML INJ 1ML IV PRN (11:00)
[2020-04-14 13:24] VITALS: BP 142/101
[2020-04-14 13:33] VITALS: BP 142/101
[2020-04-14] MEDS ORDERED: LISINOPRIL 2.5 MG TAB PO ONE (14:00)
[2020-04-14 14:11] LABS: CHOL/HDL RATIO 4.3 (3.9-4.7)
[2020-04-14] MEDS ORDERED: SODIUM CHLORIDE 0.9% 1000ML 2,000 ML ONE (14:49)
[2020-04-14] MEDS ORDERED: GUAIFENESIN/CODEINE 10 ML CUP PO PRN (15:00)
[2020-04-14] MEDS ORDERED: HYDROCODONE/APAP 5MG-325MG TAB PO PRN (15:00)
[2020-04-14] MEDS ORDERED: DOCUSATE SODIUM 100 MG CAP PO PRN (15:00)
[2020-04-14] MEDS ORDERED: BENZONATATE 100 MG CAP PO PRN (15:00)
[2020-04-14] MEDS ORDERED: DEXTROSE 50% SYRINGE 50 ML IV PRN (15:00)
[2020-04-14] MEDS ORDERED: ONDANSETRON HCL INJ 2MG/ML 2ML 2 MG/ML VIAL IV PRN (15:00)
[2020-04-14] MEDS ORDERED: ACETAMINOPHEN 325 MG TAB PO PRN (15:00)
[2020-04-14] MEDS ORDERED: POLYETHYLENE GLYCOL 3350 17 GM PACK PO PRN (15:00)
[2020-04-14] MEDS ORDERED: HYDRALAZINE HCL 20 MG/ML VIAL IV PRN (15:00)
[2020-04-14 15:37] VITALS: BP 130/96
[2020-04-14] MEDS ORDERED: ENOXAPARIN SOD INJ 40 MG/0.4 ML SYR SC SCH (17:00)
[2020-04-14] MEDS: SEVELAMER CARBONATE 800 MG TAB PO SCH (17:00)
[2020-04-14 20:00] VITALS: BP 144/98
[2020-04-14] MEDS ORDERED: MELATONIN 5 MG TABLET PO PRN (21:00)
[2020-04-14] MEDS ORDERED: ATORVASTATIN 20 MG TAB PO SCH (21:00)
[2020-04-14 22:18] VITALS: BP 144/98
[2020-04-15] VITALS: BP 137/100
[2020-04-15 04:00] VITALS: BP 140/90
[2020-04-15 06:39] LABS: BASOPHILS # (AUTO) 0.1 (0.0-0.1); BASOPHILS % 0.6 % (0.0-1.0); EOSINOPHILS # (AUTO) 0.2 (0.0-0.4); EOSINOPHILS % 2.1 % (0.0-6.0); HEMATOCRIT 36.8 % (38.2-49.6); HEMOGLOBIN 11.7 g/dL (14.0-18.0); LYMPHOCYTES # (AUTO) 1.3 (1.0-3.2); LYMPHOCYTES % 17.3 % (18.0-39.1); MEAN CORPUSCULAR HEMOGLOBIN 28.3 pg (28-32); MEAN CORPUSCULAR HGB CONC 31.8 g/dL (31-35); MEAN CORPUSCULAR VOLUME 89.1 fL (81-99); NEUTROPHILS # (AUTO) 5.1 (2.1-6.9); NEUTROPHILS % 66.5 % (38.7-80.0); PLATELET COUNT 155 x10e3/uL (140-360); RED BLOOD COUNT 4.13 x10e6/uL (4.3-5.7); RED CELL DISTRIBUTION WIDTH 18.3 % (11.7-14.4)
[2020-04-15 07:09] LABS: ALBUMIN 3.6 g/dL (3.5-5.0); ALBUMIN/GLOBULIN RATIO 0.8 (0.8-2.0); ANION GAP 24.6 mmol/L (8-16); CALCIUM 8.6 mg/dL (8.4-10.2); CHOL/HDL RATIO 6.1 (3.9-4.7); CREATININE, SERUM 10.25 mg/dL (0.72-1.25); MAGNESIUM 2.2 MG/DL (1.3-2.1); PHOSPHORUS 6.7 MG/DL (2.3-4.7); POTASSIUM 4.6 mmol/L (3.5-5.1)
[2020-04-15] MEDS ORDERED: PANTOPRAZOLE SOD 40 MG TABEC PO SCH ×2 (07:30→09:00)
[2020-04-15 08:04] VITALS: BP 127/90
[2020-04-15] MEDS: SEVELAMER CARBONATE 800 MG TAB PO SCH ×3 (08:16→17:00)
[2020-04-15 08:33] VITALS: BP 127/90
[2020-04-15] MEDS ORDERED: ASPIRIN 81 MG CHEW TAB PO SCH (09:00)
[2020-04-15] MEDS ORDERED: METOPROLOL TARTRATE 25 MG TAB PO SCH (09:00)
[2020-04-15] MEDS ORDERED: ASPIRIN 81 MG ENTERIC COATED PO SCH (09:00)
[2020-04-15] MEDS ORDERED: METOPROLOL TARTRATE 25 MG TAB PO ONE (09:00)
[2020-04-15 11:14] VITALS: BP 114/84
[2020-04-15] MEDS ORDERED: IOPAMIDOL 370 MG/ML 200 ML INFUS..BTL INJ ONE ×2 (12:07→12:18)
[2020-04-15] MEDS ORDERED: LIDOCAINE HCL 2% LOCAL 20 ML VIAL ONE (12:07)
[2020-04-15] MEDS ORDERED: HEPARIN SOD/SOD CHLORIDE 2,000 ML ONE (12:07)
[2020-04-15] MEDS ORDERED: MIDAZOLAM HCL 2 MG/2 ML VIAL ONE ×2 (12:08→12:18)
[2020-04-15] MEDS ORDERED: FENTANYL CITRATE/PF 100MCG/2 ML INJ ONE ×2 (12:08→12:18)
[2020-04-15] MEDS ORDERED: SODIUM CHLORIDE 0.9% 1000ML 1,000 ML ONE (12:25)
[2020-04-15 15:59] VITALS: BP 120/75
== END 2020-04-15 19:45 | disposition home or self-care (01) ==
LOC: ER 08:19 → ERHOLD 09:20 → MED/SURG3 13:13
PROVIDERS: ADMIT Internal Medicine; ATTEND Internal Medicine
DX: I13.2 Hypertensive heart and chronic kidney disease with heart failure and with stage 5 chronic kidney disease, or end stage renal disease (principal); I50.23 Acute on chronic systolic (congestive) heart failure; N18.6 End stage renal disease; Z99.2 Dependence on renal dialysis; R06.03 Acute respiratory distress; M32.9 Systemic lupus erythematosus, unspecified; E87.2 Acidosis; N25.81 Secondary hyperparathyroidism of renal origin; D63.1 Anemia in chronic kidney disease; Z11.59 Encounter for screening for other viral diseases; I25.10 Atherosclerotic heart disease of native coronary artery without angina pectoris
CPT/HCPCS: 93458; G0278; 36415; 71046; 80053; 80061; 82550; 82553; 82948; 83036; 83690; 83735; 83880; 84100; 84484; 85025; 86704; 86705; 86706; 87340; 90935; 90962; 93005; 93306; 93454; 99152; 99153; C1760; C1769; G0378; J2001; J2250; J2270; J3010; J7030; Q9967; U0002

== ENCOUNTER 2020-11-12 12:58 | Emergency (ER) | payer MEDICARE, OTHER ==
[~2020-11-12] VITALS: Ht 190.5 cm; Wt 103.9 kg
[2020-11-12] MEDS ORDERED: ONDANSETRON HCL INJ 2MG/ML 2ML 2 MG/ML VIAL IV STA (13:09)
[2020-11-12] MEDS ORDERED: SODIUM CHLORIDE 0.9% 1000ML 1,000 ML IV STA (13:09)
[2020-11-12 13:44] LABS: BASOPHILS % 0.7 % (0.0-1.0); EOSINOPHILS # (AUTO) 0.1 (0.0-0.4); EOSINOPHILS % 1.7 % (0.0-6.0); HEMATOCRIT 32.9 % (38.2-49.6); HEMOGLOBIN 10.5 g/dL (14.0-18.0); LYMPHOCYTES # (AUTO) 1.2 (1.0-3.2); LYMPHOCYTES % 19.6 % (18.0-39.1); MEAN CORPUSCULAR HEMOGLOBIN 29.8 pg (28-32); MEAN CORPUSCULAR HGB CONC 31.9 g/dL (31-35); MEAN CORPUSCULAR VOLUME 93.5 fL (81-99); MONOCYTES # (AUTO) 0.6 (0.2-0.8); MONOCYTES % 9.9 % (4.4-11.3); NEUTROPHILS % 67.8 % (38.7-80.0); PLATELET COUNT 72 x10e3/uL (140-360); RED BLOOD COUNT 3.52 x10e6/uL (4.3-5.7); RED CELL DISTRIBUTION WIDTH 18.3 % (11.7-14.4)
[2020-11-12 14:02] LABS: ABG HCO3 34 mmol/L (22-26); ABG PCO2 43 mmHg (35-45); ABG PH 7.51 (7.35-7.45); ABG PO2 88 mmHg (80-105); ABG TCO2 35
[2020-11-12 14:10] LABS: ALBUMIN 4.4 g/dL (3.5-5.0); ANION GAP 19.9 mmol/L (8-16); CALCIUM 8.2 mg/dL (8.4-10.2); CREATININE, SERUM 7.17 mg/dL (0.72-1.25); POTASSIUM 3.9 mmol/L (3.5-5.1)
[2020-11-12 15:20] LABS: CREATINE KINASE MB 0.7 ng/mL (0-5.0)
[2020-11-12] MEDS ORDERED: ONDANSETRON ODT4 MG PO (16:00)
== END 2020-11-12 16:15 | disposition home or self-care (01) ==
LOC: ER 13:15
DX: R11.2 Nausea with vomiting, unspecified (principal); N18.6 End stage renal disease; Z99.2 Dependence on renal dialysis; N18.9 Chronic kidney disease, unspecified; I50.9 Heart failure, unspecified; E78.5 Hyperlipidemia, unspecified; M32.9 Systemic lupus erythematosus, unspecified; Z95.810 Presence of automatic (implantable) cardiac defibrillator; Z87.19 Personal history of other diseases of the digestive system
CPT/HCPCS: 36415; 36600; 80053; 82550; 82553; 82805; 83690; 84484; 85025; 93005; 99283; J2405

== ENCOUNTER 2020-11-12 21:15 | Emergency (ER) | payer MEDICARE, OTHER ==
[~2020-11-12] VITALS: Ht 190.5 cm; Wt 103.9 kg
[~2020-11-12 21:15] MED LIST changes: +ONDANSETRON ODT4 MG PO
[2020-11-12] MEDS ORDERED: ONDANSETRON HCL INJ 2MG/ML 2ML 2 MG/ML VIAL IV STA (22:11)
[2020-11-12] MEDS ORDERED: PANTOPRAZOLE 40 MG 10ML VIAL IV STA (22:11)
[2020-11-12 22:24] LABS: BASOPHILS % 0.6 % (0.0-1.0); EOSINOPHILS # (AUTO) 0.1 (0.0-0.4); EOSINOPHILS % 1.4 % (0.0-6.0); HEMATOCRIT 31.4 % (38.2-49.6); HEMOGLOBIN 10.1 g/dL (14.0-18.0); LYMPHOCYTES # (AUTO) 1.2 (1.0-3.2); LYMPHOCYTES % 15.9 % (18.0-39.1); MEAN CORPUSCULAR HGB CONC 32.2 g/dL (31-35); MEAN CORPUSCULAR VOLUME 93.2 fL (81-99); MONOCYTES # (AUTO) 0.7 (0.2-0.8); MONOCYTES % 9.8 % (4.4-11.3); NEUTROPHILS # (AUTO) 5.2 (2.1-6.9); PLATELET COUNT 63 x10e3/uL (140-360); RED BLOOD COUNT 3.37 x10e6/uL (4.3-5.7); RED CELL DISTRIBUTION WIDTH 18.2 % (11.7-14.4)
[2020-11-12 22:40] LABS: ALBUMIN 4.3 g/dL (3.5-5.0); ALBUMIN/GLOBULIN RATIO 0.9 (0.8-2.0); ANION GAP 24.2 mmol/L (8-16); CALCIUM 8.4 mg/dL (8.4-10.2); CREATININE, SERUM 7.95 mg/dL (0.72-1.25); POTASSIUM 4.2 mmol/L (3.5-5.1)
[2020-11-12 22:47] LABS: CREATINE KINASE MB 0.6 ng/mL (0-5.0)
[2020-11-12 23:09] VITALS: BP 153/84
== END 2020-11-12 23:11 | disposition home or self-care (01) ==
LOC: ER 22:53
DX: R10.13 Epigastric pain (principal); R11.2 Nausea with vomiting, unspecified; K29.70 Gastritis, unspecified, without bleeding; N18.6 End stage renal disease; Z99.2 Dependence on renal dialysis; I50.9 Heart failure, unspecified; E78.5 Hyperlipidemia, unspecified; M32.9 Systemic lupus erythematosus, unspecified; Z95.810 Presence of automatic (implantable) cardiac defibrillator
CPT/HCPCS: 36415; 80053; 82550; 82553; 83690; 84484; 85025; 99283; C9113; J2405

== ENCOUNTER 2020-11-24 20:45 | Inpatient (IN) | payer MEDICARE, OTHER ==
[~2020-11-24] VITALS: Ht 190.5 cm; Wt 95.4 kg
[2020-11-24] MEDS ORDERED: ONDANSETRON HCL INJ 2MG/ML 2ML 2 MG/ML VIAL IV STA (21:23)
[2020-11-24] MEDS ORDERED: PANTOPRAZOLE 40 MG 10ML VIAL IV STA (21:23)
[2020-11-24 21:54] LABS: BASOPHILS % 0.4 % (0.0-1.0); EOSINOPHILS # (AUTO) 0.2 (0.0-0.4); EOSINOPHILS % 1.9 % (0.0-6.0); HEMATOCRIT 32.1 % (38.2-49.6); HEMOGLOBIN 10.5 g/dL (14.0-18.0); LYMPHOCYTES # (AUTO) 1.4 (1.0-3.2); LYMPHOCYTES % 15.8 % (18.0-39.1); MEAN CORPUSCULAR HEMOGLOBIN 30.1 pg (28-32); MEAN CORPUSCULAR HGB CONC 32.7 g/dL (31-35); MONOCYTES # (AUTO) 0.7 (0.2-0.8); NEUTROPHILS # (AUTO) 6.3 (2.1-6.9); NEUTROPHILS % 73.5 % (38.7-80.0); PLATELET COUNT 63 x10e3/uL (140-360); RED BLOOD COUNT 3.49 x10e6/uL (4.3-5.7); RED CELL DISTRIBUTION WIDTH 17.8 % (11.7-14.4)
[2020-11-24 22:09] LABS: ALBUMIN 4.4 g/dL (3.5-5.0); ALBUMIN/GLOBULIN RATIO 1.1 (0.8-2.0); ANION GAP 27.7 mmol/L (8-16); CALCIUM 9.2 mg/dL (8.4-10.2); CREATININE, SERUM 20.46 mg/dL (0.72-1.25)
[2020-11-24 22:15] LABS: POTASSIUM 5.7 mmol/L (3.5-5.1)
[2020-11-24 22:16] LABS: AMYLASE 69 U/L (25-125); LIPASE 29 U/L (8-78)
[2020-11-24] MEDS ORDERED: DEXTROSE 50% SYRINGE 50 ML IV STA (22:55)
[2020-11-24] MEDS ORDERED: SODIUM BICARBONATE 8.4% INJ 50 ML SYR IV STA (22:55)
[2020-11-24] MEDS ORDERED: SOD POLYSTYRENE SULFONATE SUSP 15 GM/60 ML BTL PO ONE (23:00)
[2020-11-24] MEDS ORDERED: CALCIUM GLUCONATE 10% INJ 13.95 MEQ in SODIUM CHLORIDE 0.9% 100 ML 100 ML IV ONE (23:00)
[2020-11-24] MEDS ORDERED: INSULIN REGULAR, HUMAN 100 UNIT/1 ML 3ML VIAL IV ONE (23:00)
[2020-11-24] MEDS ORDERED: ONDANSETRON HCL INJ 2MG/ML 2ML 2 MG/ML VIAL IV PRN (23:15)
[2020-11-24] MEDS ORDERED: SODIUM CHLORIDE FLUSH 10 ML SYR INJ PRN (23:15)
[2020-11-24] MEDS ORDERED: CALCIUM GLUCONATE 10% INJ 0.465 MEQ/ML VIAL ONE (23:26)
[2020-11-24] MEDS ORDERED: SODIUM CHLORIDE 0.9% 100 ML ONE (23:27)
[2020-11-25] VITALS (8 sets, daily range): BP systolic 134–151; BP diastolic 85–90
[2020-11-25 04:48] LABS: BASOPHILS % 0.6 % (0.0-1.0); EOSINOPHILS # (AUTO) 0.2 (0.0-0.4); EOSINOPHILS % 2.3 % (0.0-6.0); HEMOGLOBIN 9.8 g/dL (14.0-18.0); LYMPHOCYTES # (AUTO) 1.2 (1.0-3.2); LYMPHOCYTES % 16.8 % (18.0-39.1); MEAN CORPUSCULAR HEMOGLOBIN 29.7 pg (28-32); MEAN CORPUSCULAR HGB CONC 32.7 g/dL (31-35); MEAN CORPUSCULAR VOLUME 90.9 fL (81-99); MONOCYTES # (AUTO) 0.6 (0.2-0.8); MONOCYTES % 9.2 % (4.4-11.3); NEUTROPHILS # (AUTO) 4.9 (2.1-6.9); NEUTROPHILS % 70.7 % (38.7-80.0); PLATELET COUNT 57 x10e3/uL (140-360); RED CELL DISTRIBUTION WIDTH 17.5 % (11.7-14.4)
[2020-11-25 05:06] LABS: ALBUMIN/GLOBULIN RATIO 1.1 (0.8-2.0); ANION GAP 27.8 mmol/L (8-16); CALCIUM 9.2 mg/dL (8.4-10.2); CREATININE, SERUM 21.31 mg/dL (0.72-1.25); POTASSIUM 4.8 mmol/L (3.5-5.1)
[2020-11-25] MEDS ORDERED: PANTOPRAZOLE 40 MG 10ML VIAL IV SCH (09:00)
[2020-11-25] MEDS ORDERED: SODIUM CHLORIDE 0.9% 1000ML 2,000 ML ONE (10:01)
[2020-11-25] MEDS ORDERED: SODIUM CHLORIDE 0.9% 250ML 500 ML IV PRN (10:15)
[2020-11-25] MEDS ORDERED: ALBUMIN 25% 12.5GM 0.25 GM/ML BTL IV PRN (10:15)
[2020-11-25] MEDS ORDERED: SODIUM CHLORIDE 0.9% 1000ML 2,000 ML IV PRN (10:15)
[2020-11-25] MEDS ORDERED: SUCRALFATE 1 GM TAB PO PRN (11:30)
[2020-11-25] MEDS ORDERED: LIDOCAINE 4% PATCH TP PRN (11:45)
[2020-11-25] MEDS ORDERED: POLYETHYLENE GLYCOL 3350 17 GM PACK PO PRN (11:45)
[2020-11-25] MEDS ORDERED: ONDANSETRON HCL INJ 2MG/ML 2ML 2 MG/ML VIAL IV PRN (11:45)
[2020-11-25] MEDS ORDERED: TRAMADOL HCL 50 MG TAB PO PRN (11:45)
[2020-11-25] MEDS ORDERED: ACETAMINOPHEN 325 MG TAB PO PRN (11:45)
[2020-11-25] MEDS ORDERED: HYDRALAZINE HCL 20 MG/ML VIAL IV PRN (11:45)
[2020-11-25] MEDS ORDERED: DEXTROSE 50% SYRINGE 50 ML IV PRN (11:45)
[2020-11-25] MEDS: SEVELAMER CARBONATE 800 MG TAB PO SCH ×2 (14:14→17:14)
[2020-11-26] VITALS (7 sets, daily range): BP systolic 126–134; BP diastolic 72–85
[2020-11-26 05:01] LABS: BASOPHILS % 0.5 % (0.0-1.0); EOSINOPHILS # (AUTO) 0.2 (0.0-0.4); EOSINOPHILS % 2.9 % (0.0-6.0); HEMATOCRIT 30.3 % (38.2-49.6); LYMPHOCYTES # (AUTO) 1.1 (1.0-3.2); MEAN CORPUSCULAR HEMOGLOBIN 30.3 pg (28-32); MEAN CORPUSCULAR VOLUME 91.8 fL (81-99); MONOCYTES # (AUTO) 0.8 (0.2-0.8); MONOCYTES % 11.5 % (4.4-11.3); NEUTROPHILS # (AUTO) 4.4 (2.1-6.9); NEUTROPHILS % 67.8 % (38.7-80.0); PLATELET COUNT 66 x10e3/uL (140-360); RED CELL DISTRIBUTION WIDTH 17.6 % (11.7-14.4)
[2020-11-26 05:25] LABS: ALBUMIN 3.8 g/dL (3.5-5.0); ANION GAP 23.2 mmol/L (8-16); CALCIUM 8.6 mg/dL (8.4-10.2); CHOL/HDL RATIO 3.2 (3.9-4.7); CREATININE, SERUM 12.97 mg/dL (0.72-1.25); PHOSPHORUS 6.4 MG/DL (2.3-4.7); POTASSIUM 4.2 mmol/L (3.5-5.1)
[2020-11-26 05:47] LABS: THYROID STIMULATING HORMONE 1.393 uIU/mL (0.350-4.940)
[2020-11-26] MEDS: ASPIRIN 81 MG CHEW TAB PO SCH (07:31)
[2020-11-26] MEDS: PANTOPRAZOLE SOD 40 MG TABEC PO SCH (07:31)
[2020-11-26] MEDS: SEVELAMER CARBONATE 800 MG TAB PO SCH ×3 (07:31→16:18)
[2020-11-26] MEDS ORDERED: PANTOPRAZOLE SOD 40 MG TABEC PO SCH (09:00)
[2020-11-26] MEDS ORDERED: ONDANSETRON HCL 4 MG ORAL DISINTEGRATING TAB PO PRN (12:45)
[2020-11-27] VITALS: BP 139/78
[2020-11-27 04:00] VITALS: BP 140/79
[2020-11-27] MEDS: PANTOPRAZOLE SOD 40 MG TABEC PO SCH ×2 (07:30→11:06)
[2020-11-27] MEDS: SEVELAMER CARBONATE 800 MG TAB PO SCH ×2 (08:00→11:06)
[2020-11-27 08:22] VITALS: BP 134/80
[2020-11-27] MEDS: ASPIRIN 81 MG CHEW TAB PO SCH ×2 (09:00→11:08)
[2020-11-27 09:11] VITALS: BP 134/80
[2020-11-27 12:18] VITALS: BP 138/79
== END 2020-11-27 13:01 | disposition home or self-care (01) | DRG 391 ==
LOC: ER 21:24 → ERHOLD 23:22 → MED/SURG 11-25 03:44 → OBSVTOIN 11-26 12:54 → MED/SURG2 11-26 18:03
PROVIDERS: ADMIT Internal Medicine; ATTEND Internal Medicine
PROC: 5A1D70Z Performance of Urinary Filtration, Intermittent, Less than 6 Hours Per Day (ICD-10-PCS; principal; 2020-11-25)
DX: R11.2 Nausea with vomiting, unspecified (principal); N18.6 End stage renal disease; I12.0 Hypertensive chronic kidney disease with stage 5 chronic kidney disease or end stage renal disease; N25.81 Secondary hyperparathyroidism of renal origin; Z99.2 Dependence on renal dialysis; D63.1 Anemia in chronic kidney disease; K21.9 Gastro-esophageal reflux disease without esophagitis; E87.5 Hyperkalemia; M32.9 Systemic lupus erythematosus, unspecified; Z20.822 Contact with and (suspected) exposure to COVID-19
CPT/HCPCS: 36415; 78264; 80053; 80061; 82150; 82948; 83036; 83690; 84100; 84443; 85025; 86705; 86706; 87340; 93005; 99284; A9541; G0378; J0610; J1817; J2405; J7030; J7050; J7799; U0002

== ENCOUNTER 2021-05-05 11:42 | Inpatient (IN) | payer MEDICARE, OTHER ==
[~2021-05-05] VITALS: Ht 190.5 cm; Wt 94.4 kg
[2021-05-05] VITALS (7 sets, daily range): BP systolic 136–145; BP diastolic 76–84
[2021-05-05] MEDS ORDERED: SODIUM CHLORIDE 0.9% 1000ML 1,000 ML IV ONE (12:30)
[2021-05-05] MEDS ORDERED: ONDANSETRON HCL INJ 2MG/ML 2ML 2 MG/ML VIAL IV ONE (13:00)
[2021-05-05 13:09] LABS: BASOPHILS % 0.4 % (0.0-1.0); EOSINOPHILS # (AUTO) 0.1 (0.0-0.4); EOSINOPHILS % 0.7 % (0.0-6.0); HEMATOCRIT 34.3 % (38.2-49.6); HEMOGLOBIN 11.1 g/dL (14.0-18.0); LYMPHOCYTES # (AUTO) 0.6 (1.0-3.2); LYMPHOCYTES % 7.8 % (18.0-39.1); MEAN CORPUSCULAR HGB CONC 32.4 g/dL (31-35); MEAN CORPUSCULAR VOLUME 92.7 fL (81-99); MONOCYTES # (AUTO) 0.7 (0.2-0.8); MONOCYTES % 9.7 % (4.4-11.3); NEUTROPHILS # (AUTO) 6.1 (2.1-6.9); NEUTROPHILS % 81.1 % (38.7-80.0); PLATELET COUNT 77 x10e3/uL (140-360); RED CELL DISTRIBUTION WIDTH 16.9 % (11.7-14.4)
[2021-05-05 13:35] LABS: ALBUMIN 4.2 g/dL (3.5-5.0); ALBUMIN/GLOBULIN RATIO 0.9 (0.8-2.0); ANION GAP 21.8 mmol/L (8-16); CALCIUM 7.5 mg/dL (8.4-10.2); CREATININE, SERUM 11.41 mg/dL (0.72-1.25)
[2021-05-05 13:42] LABS: POTASSIUM 5.8 mmol/L (3.5-5.1)
[2021-05-05] MEDS ORDERED: METOCLOPRAMIDE HCL 10 MG/2ML VIAL IV PRN (14:00)
[2021-05-05] MEDS ORDERED: ONDANSETRON HCL INJ 2MG/ML 2ML 2 MG/ML VIAL IV PRN (14:00)
[2021-05-05] MEDS ORDERED: METOCLOPRAMIDE HCL 10 MG/2ML VIAL IV ONE (14:30)
[2021-05-05] MEDS ORDERED: DIPHENHYDRAMINE HCL INJ 50 MG/ML VIAL IV ONE (14:30)
[2021-05-05] MEDS ORDERED: SODIUM CHLORIDE 0.9% 1000ML 1,000 ML ONE (17:01)
[2021-05-06] VITALS (7 sets, daily range): BP systolic 118–141; BP diastolic 76–85
[2021-05-06] MEDS ORDERED: MELATONIN 5 MG TABLET PO PRN (01:15)
[2021-05-06] MEDS ORDERED: DIPHENHYDRAMINE HCL 25 MG CAP PO PRN (01:15)
[2021-05-06] MEDS ORDERED: SUCRALFATE 1 GM TAB PO PRN (01:15)
[2021-05-06] MEDS ORDERED: TRAMADOL HCL 50 MG TAB PO PRN (01:15)
[2021-05-06] MEDS ORDERED: SIMETHICONE 80 MG CHEW PO PRN (01:15)
[2021-05-06] MEDS ORDERED: LIDOCAINE 4% PATCH TP PRN (01:15)
[2021-05-06] MEDS ORDERED: BENZONATATE 100 MG CAP PO PRN (01:15)
[2021-05-06] MEDS ORDERED: ACETAMINOPHEN 325 MG TAB PO PRN (01:15)
[2021-05-06] MEDS ORDERED: DEXTROSE 50% SYRINGE 50 ML IV PRN (01:15)
[2021-05-06] MEDS ORDERED: DOCUSATE SODIUM 100 MG CAP PO PRN (01:15)
[2021-05-06] MEDS ORDERED: MECLIZINE HCL 12.5 MG TAB PO PRN (01:15)
[2021-05-06] MEDS ORDERED: ONDANSETRON HCL INJ 2MG/ML 2ML 2 MG/ML VIAL IV PRN (01:15)
[2021-05-06] MEDS ORDERED: ALBUTEROL/IPRATROPIUM 3 ML NEB NEB PRN (01:15)
[2021-05-06] MEDS ORDERED: CHLORASEPTIC SPRAY 177 ML BTL MM PRN (01:15)
[2021-05-06] MEDS ORDERED: METOCLOPRAMIDE HCL 10 MG/2ML VIAL IV PRN (01:15)
[2021-05-06] MEDS ORDERED: HYDRALAZINE HCL 20 MG/ML VIAL IV PRN (01:15)
[2021-05-06 05:00] LABS: BASOPHILS % 0.3 % (0.0-1.0); EOSINOPHILS # (AUTO) 0.1 (0.0-0.4); HEMATOCRIT 31.8 % (38.2-49.6); HEMOGLOBIN 10.6 g/dL (14.0-18.0); LYMPHOCYTES # (AUTO) 0.7 (1.0-3.2); LYMPHOCYTES % 11.5 % (18.0-39.1); MEAN CORPUSCULAR HEMOGLOBIN 30.9 pg (28-32); MEAN CORPUSCULAR HGB CONC 33.3 g/dL (31-35); MEAN CORPUSCULAR VOLUME 92.7 fL (81-99); MONOCYTES % 15.8 % (4.4-11.3); NEUTROPHILS # (AUTO) 4.3 (2.1-6.9); NEUTROPHILS % 70.1 % (38.7-80.0); PLATELET COUNT 75 x10e3/uL (140-360); RED BLOOD COUNT 3.43 x10e6/uL (4.3-5.7); RED CELL DISTRIBUTION WIDTH 16.7 % (11.7-14.4)
[2021-05-06 05:38] LABS: ALBUMIN 3.8 g/dL (3.5-5.0); ALBUMIN/GLOBULIN RATIO 0.9 (0.8-2.0); ANION GAP 19.1 mmol/L (8-16); CALCIUM 7.3 mg/dL (8.4-10.2); CREATININE, SERUM 7.71 mg/dL (0.72-1.25); POTASSIUM 4.1 mmol/L (3.5-5.1)
[2021-05-06 06:58] LABS: MAGNESIUM 1.7 MG/DL (1.3-2.1); PHOSPHORUS 3.8 MG/DL (2.3-4.7)
[2021-05-06] MEDS: PANTOPRAZOLE SOD 40 MG TABEC PO SCH (08:40)
[2021-05-06] MEDS: ASPIRIN 81 MG CHEW TAB PO SCH (08:40)
[2021-05-06] MEDS: SEVELAMER CARBONATE 800 MG TAB PO SCH ×3 (08:40→22:00)
[2021-05-06] MEDS ORDERED: CALCIUM GLUCONATE 10% INJ 13.95 MEQ in SODIUM CHLORIDE 0.9% 100 ML 100 ML IV ONE (13:00)
[2021-05-06 15:06] LABS: CREATINE KINASE MB 1.1 ng/mL (0-5.0)
[2021-05-07] VITALS (7 sets, daily range): BP systolic 122–144; BP diastolic 76–88
[2021-05-07 04:57] LABS: CALCIUM IONIZED 0.9 mmol/L (1.09-1.30)
[2021-05-07 04:58] LABS: BASOPHILS # (AUTO) 0.1 (0.0-0.1); BASOPHILS % 0.8 % (0.0-1.0); EOSINOPHILS # (AUTO) 0.3 (0.0-0.4); EOSINOPHILS % 4.5 % (0.0-6.0); HEMATOCRIT 33.8 % (38.2-49.6); HEMOGLOBIN 10.9 g/dL (14.0-18.0); LYMPHOCYTES # (AUTO) 1.2 (1.0-3.2); LYMPHOCYTES % 19.1 % (18.0-39.1); MEAN CORPUSCULAR HEMOGLOBIN 30.4 pg (28-32); MEAN CORPUSCULAR HGB CONC 32.2 g/dL (31-35); MEAN CORPUSCULAR VOLUME 94.2 fL (81-99); MONOCYTES # (AUTO) 0.9 (0.2-0.8); MONOCYTES % 14.7 % (4.4-11.3); NEUTROPHILS # (AUTO) 3.7 (2.1-6.9); NEUTROPHILS % 60.3 % (38.7-80.0); PLATELET COUNT 104 x10e3/uL (140-360); RED BLOOD COUNT 3.59 x10e6/uL (4.3-5.7); RED CELL DISTRIBUTION WIDTH 16.3 % (11.7-14.4)
[2021-05-07 05:24] LABS: ANION GAP 20.2 mmol/L (8-16); CALCIUM 7.6 mg/dL (8.4-10.2); CREATININE, SERUM 9.64 mg/dL (0.72-1.25); POTASSIUM 4.2 mmol/L (3.5-5.1)
[2021-05-07] MEDS: PANTOPRAZOLE SOD 40 MG TABEC PO SCH (08:28)
[2021-05-07] MEDS: SEVELAMER CARBONATE 800 MG TAB PO SCH (08:28)
[2021-05-07] MEDS: ASPIRIN 81 MG CHEW TAB PO SCH (08:28)
[2021-05-07] MEDS ORDERED: SODIUM CHLORIDE 0.9% 1000ML 1,000 ML ONE (08:44)
[2021-05-07] MEDS: CALCIUM CARBONATE 500 MG CHEWABLE TABS PO SCH ×3 (12:14→21:05)
[2021-05-07] MEDS: CALCIUM ACETATE 667 MG GELCAP PO SCH ×2 (12:14→16:30)
[2021-05-07] MEDS ORDERED: SODIUM CHLORIDE 0.9% 250ML 250 ML ONE (13:08)
[2021-05-07] MEDS ORDERED: CALCIUM GLUCONATE 10% INJ 13.95 MEQ in SODIUM CHLORIDE 0.9% 100 ML 100 ML IV ONE ×2 (14:00→20:00)
[2021-05-07 17:31] LABS: MAGNESIUM 1.8 MG/DL (1.3-2.1)
[2021-05-08] VITALS (7 sets, daily range): BP systolic 129–152; BP diastolic 79–90
[2021-05-08 05:01] LABS: CALCIUM IONIZED 1.1 mmol/L (1.09-1.30)
[2021-05-08 05:02] LABS: BASOPHILS # (AUTO) 0.1 (0.0-0.1); BASOPHILS % 0.9 % (0.0-1.0); EOSINOPHILS # (AUTO) 0.2 (0.0-0.4); EOSINOPHILS % 3.6 % (0.0-6.0); HEMATOCRIT 32.6 % (38.2-49.6); HEMOGLOBIN 10.6 g/dL (14.0-18.0); LYMPHOCYTES # (AUTO) 1.2 (1.0-3.2); MEAN CORPUSCULAR HEMOGLOBIN 30.8 pg (28-32); MEAN CORPUSCULAR HGB CONC 32.5 g/dL (31-35); MEAN CORPUSCULAR VOLUME 94.8 fL (81-99); MONOCYTES # (AUTO) 0.7 (0.2-0.8); MONOCYTES % 12.3 % (4.4-11.3); NEUTROPHILS # (AUTO) 3.2 (2.1-6.9); PLATELET COUNT 97 x10e3/uL (140-360); RED BLOOD COUNT 3.44 x10e6/uL (4.3-5.7); RED CELL DISTRIBUTION WIDTH 16.2 % (11.7-14.4)
[2021-05-08 05:23] LABS: ANION GAP 17.1 mmol/L (8-16); CALCIUM 8.1 mg/dL (8.4-10.2); CREATININE, SERUM 7.38 mg/dL (0.72-1.25); POTASSIUM 4.1 mmol/L (3.5-5.1)
[2021-05-08] MEDS: PANTOPRAZOLE SOD 40 MG TABEC PO SCH (08:52)
[2021-05-08] MEDS: CALCIUM CARBONATE 500 MG CHEWABLE TABS PO SCH ×3 (08:52→20:46)
[2021-05-08] MEDS: ASPIRIN 81 MG CHEW TAB PO SCH (08:52)
[2021-05-08] MEDS: CALCIUM ACETATE 667 MG GELCAP PO SCH ×3 (08:52→16:36)
[2021-05-08] MEDS ORDERED: CALCIUM GLUCONATE 10% INJ 9.3 MEQ in SODIUM CHLORIDE 0.9% 100 ML 100 ML IV ONE (13:45)
[2021-05-08] MEDS ORDERED: MAGNESIUM SULFATE 2GM/50ML 50 ML IV ONE (13:45)
[2021-05-09] VITALS: BP 127/84
[2021-05-09 04:00] VITALS: BP 130/83
[2021-05-09 06:26] LABS: BASOPHILS # (AUTO) 0.1 (0.0-0.1); EOSINOPHILS # (AUTO) 0.2 (0.0-0.4); HEMOGLOBIN 10.7 g/dL (14.0-18.0); LYMPHOCYTES # (AUTO) 1.5 (1.0-3.2); LYMPHOCYTES % 24.8 % (18.0-39.1); MEAN CORPUSCULAR HEMOGLOBIN 30.6 pg (28-32); MEAN CORPUSCULAR HGB CONC 32.4 g/dL (31-35); MEAN CORPUSCULAR VOLUME 94.3 fL (81-99); MONOCYTES # (AUTO) 0.5 (0.2-0.8); NEUTROPHILS # (AUTO) 3.7 (2.1-6.9); NEUTROPHILS % 61.9 % (38.7-80.0); PLATELET COUNT 107 x10e3/uL (140-360)
[2021-05-09 06:48] LABS: ANION GAP 19.2 mmol/L (8-16); CALCIUM 8.3 mg/dL (8.4-10.2); CREATININE, SERUM 9.36 mg/dL (0.72-1.25); MAGNESIUM 2.2 MG/DL (1.3-2.1); POTASSIUM 4.2 mmol/L (3.5-5.1)
[2021-05-09 07:47] VITALS: BP 142/93
[2021-05-09 08:08] VITALS: BP 142/93
[2021-05-09] MEDS: PANTOPRAZOLE SOD 40 MG TABEC PO SCH (09:03)
[2021-05-09] MEDS: CALCIUM ACETATE 667 MG GELCAP PO SCH ×2 (09:04→11:57)
[2021-05-09] MEDS: ASPIRIN 81 MG CHEW TAB PO SCH (09:04)
[2021-05-09 11:04] VITALS: BP 143/86
== END 2021-05-09 13:20 | disposition home or self-care (01) | DRG 314 ==
LOC: ER 12:08 → ERHOLD 14:08 → MED/SURG2 16:38
PROVIDERS: ADMIT Internal Medicine; ATTEND Internal Medicine
PROC: 5A1D70Z Performance of Urinary Filtration, Intermittent, Less than 6 Hours Per Day (ICD-10-PCS; principal; 2021-05-05)
DX: R94.31 Abnormal electrocardiogram [ECG] [EKG] (principal); N18.6 End stage renal disease; I13.2 Hypertensive heart and chronic kidney disease with heart failure and with stage 5 chronic kidney disease, or end stage renal disease; N25.81 Secondary hyperparathyroidism of renal origin; E83.51 Hypocalcemia; E87.5 Hyperkalemia; Z99.2 Dependence on renal dialysis; I50.9 Heart failure, unspecified; R11.2 Nausea with vomiting, unspecified; T50.B95A Adverse effect of other viral vaccines, initial encounter; M79.10 Myalgia, unspecified site; M32.14 Glomerular disease in systemic lupus erythematosus; K27.9 Peptic ulcer, site unspecified, unspecified as acute or chronic, without hemorrhage or perforation; Z95.2 Presence of prosthetic heart valve; K29.70 Gastritis, unspecified, without bleeding; K21.9 Gastro-esophageal reflux disease without esophagitis; T45.0X6A Underdosing of antiallergic and antiemetic drugs, initial encounter; T47.1X6A Underdosing of other antacids and anti-gastric-secretion drugs, initial encounter; I07.1 Rheumatic tricuspid insufficiency; E83.39 Other disorders of phosphorus metabolism; D69.59 Other secondary thrombocytopenia; M32.10 Systemic lupus erythematosus, organ or system involvement unspecified
CPT/HCPCS: 36415; 71046; 74018; 80048; 80053; 82550; 82553; 83735; 84100; 84484; 85025; 86705; 86706; 87340; 90962; 93005; 93306; 94799; 99284; J0610; J1200; J2405; J2765; J3475; J7030; J7050; U0002

== ENCOUNTER 2021-10-06 10:52 | Emergency (ER) | payer MEDICARE, OTHER ==
[~2021-10-06] VITALS: Ht 190.5 cm; Wt 94.3 kg
[2021-10-06] MEDS ORDERED: Morphine 4mg Syringe 4 MG/ML INJ IV ONE (11:15)
[2021-10-06] MEDS ORDERED: IOPAMIDOL 370 MG/ML 200 ML INFUS..BTL INJ ONE (11:31)
[2021-10-06] MEDS ORDERED: SODIUM CHLORIDE 0.9% 50ML 50 ML ONE (11:31)
[2021-10-06 13:09] LABS: BASOPHILS # (AUTO) 0.1 (0.0-0.1); BASOPHILS % 0.9 % (0.0-1.0); EOSINOPHILS # (AUTO) 0.6 (0.0-0.4); EOSINOPHILS % 8.7 % (0.0-6.0); HEMATOCRIT 33.1 % (38.2-49.6); HEMOGLOBIN 10.8 g/dL (14.0-18.0); LYMPHOCYTES # (AUTO) 1.2 (1.0-3.2); MEAN CORPUSCULAR HEMOGLOBIN 30.8 pg (28-32); MEAN CORPUSCULAR HGB CONC 32.6 g/dL (31-35); MEAN CORPUSCULAR VOLUME 94.3 fL (81-99); MONOCYTES # (AUTO) 0.7 (0.2-0.8); NEUTROPHILS # (AUTO) 3.9 (2.1-6.9); NEUTROPHILS % 60.1 % (38.7-80.0); PLATELET COUNT 89 x10e3/uL (140-360); RED BLOOD COUNT 3.51 x10e6/uL (4.3-5.7); RED CELL DISTRIBUTION WIDTH 15.3 % (11.7-14.4)
[2021-10-06 13:19] LABS: INR 1.3; PROTHROMBIN TIME 17.3 seconds (11.9-14.5)
[2021-10-06 13:20] LABS: PARTIAL THROMBOPLASTIN TIME 39.9 seconds (23.8-35.5)
[2021-10-06 13:31] LABS: ALBUMIN 4.1 g/dL (3.5-5.0); ALBUMIN/GLOBULIN RATIO 0.9 (0.8-2.0); ANION GAP 19.3 mmol/L (8-16); CALCIUM 8.3 mg/dL (8.4-10.2); CREATININE, SERUM 8.82 mg/dL (0.72-1.25); POTASSIUM 4.3 mmol/L (3.5-5.1)
[2021-10-06 13:37] LABS: CREATINE KINASE MB 1.5 ng/mL (0-5.0)
[2021-10-06] MEDS ORDERED: ACETAMINOPHEN-1 EAC4 PO (14:13)
[2021-10-06 14:30] VITALS: BP 118/75
== END 2021-10-06 14:51 | disposition home or self-care (01) ==
LOC: ER 11:20
DX: R10.11 Right upper quadrant pain (principal); K74.60 Unspecified cirrhosis of liver; I10 Essential (primary) hypertension; I50.9 Heart failure, unspecified; E78.5 Hyperlipidemia, unspecified; M32.9 Systemic lupus erythematosus, unspecified; Z95.810 Presence of automatic (implantable) cardiac defibrillator; Z87.19 Personal history of other diseases of the digestive system
CPT/HCPCS: 36415; 71045; 74177; 80053; 82550; 82553; 83880; 84484; 85025; 85610; 85730; 99284; J2270; Q9967

== ENCOUNTER 2021-12-29 16:05 | Emergency (ER) | payer MEDICARE, OTHER ==
[~2021-12-29] VITALS: Ht 190.5 cm; Wt 94.3 kg
[~2021-12-29 16:05] MED LIST changes: +ACETAMINOPHEN-1 EAC4 PO
[2021-12-29 16:30] LABS: BASOPHILS % 0.6 % (0.0-1.0); EOSINOPHILS # (AUTO) 0.3 (0.0-0.4); EOSINOPHILS % 3.9 % (0.0-6.0); HEMATOCRIT 33.4 % (38.2-49.6); HEMOGLOBIN 10.6 g/dL (14.0-18.0); LYMPHOCYTES # (AUTO) 1.3 (1.0-3.2); LYMPHOCYTES % 18.5 % (18.0-39.1); MEAN CORPUSCULAR HEMOGLOBIN 29.4 pg (28-32); MEAN CORPUSCULAR HGB CONC 31.7 g/dL (31-35); MEAN CORPUSCULAR VOLUME 92.8 fL (81-99); MONOCYTES # (AUTO) 0.8 (0.2-0.8); MONOCYTES % 11.5 % (4.4-11.3); NEUTROPHILS # (AUTO) 4.7 (2.1-6.9); NEUTROPHILS % 64.9 % (38.7-80.0); PLATELET COUNT 132 x10e3/uL (140-360); RED CELL DISTRIBUTION WIDTH 15.4 % (11.7-14.4)
[2021-12-29] MEDS ORDERED: ASPIRIN 325 MG TAB PO ONE (16:30)
[2021-12-29 16:37] LABS: INR 1.19; PROTHROMBIN TIME 16.2 seconds (11.9-14.5)
[2021-12-29 16:44] LABS: ALBUMIN 3.4 g/dL (3.5-5.0); ALBUMIN/GLOBULIN RATIO 0.6 (0.8-2.0); ANION GAP 18.3 mmol/L (8-16); CALCIUM 8.4 mg/dL (8.4-10.2); CREATININE, SERUM 7.68 mg/dL (0.72-1.25); POTASSIUM 4.3 mmol/L (3.5-5.1)
== END 2021-12-29 20:57 | disposition home or self-care (01) ==
LOC: ER 16:09
DX: R07.89 Other chest pain (principal); R06.02 Shortness of breath; I12.0 Hypertensive chronic kidney disease with stage 5 chronic kidney disease or end stage renal disease; N18.6 End stage renal disease; Z99.2 Dependence on renal dialysis; I50.9 Heart failure, unspecified; E78.5 Hyperlipidemia, unspecified; M32.9 Systemic lupus erythematosus, unspecified; Z95.810 Presence of automatic (implantable) cardiac defibrillator; Z87.19 Personal history of other diseases of the digestive system
CPT/HCPCS: 36415; 71045; 80053; 84484; 85025; 85610; 93005; 99284

== ENCOUNTER 2021-12-31 18:15 | Inpatient (IN) | payer MEDICARE, OTHER ==
[~2021-12-31] VITALS: Ht 190.5 cm; Wt 94.3 kg
[2021-12-31] MEDS ORDERED: PROMETHAZINE HCL (IM) 25 MG/ML VIAL IM ONE (19:00)
[2021-12-31 19:08] LABS: BASOPHILS # (AUTO) 0.1 (0.0-0.1); BASOPHILS % 0.7 % (0.0-1.0); EOSINOPHILS # (AUTO) 0.2 (0.0-0.4); EOSINOPHILS % 2.8 % (0.0-6.0); HEMATOCRIT 31.7 % (38.2-49.6); LYMPHOCYTES # (AUTO) 1.5 (1.0-3.2); LYMPHOCYTES % 17.2 % (18.0-39.1); MEAN CORPUSCULAR HEMOGLOBIN 29.6 pg (28-32); MEAN CORPUSCULAR HGB CONC 31.5 g/dL (31-35); MEAN CORPUSCULAR VOLUME 93.8 fL (81-99); MONOCYTES # (AUTO) 0.8 (0.2-0.8); MONOCYTES % 8.8 % (4.4-11.3); PLATELET COUNT 168 x10e3/uL (140-360); RED BLOOD COUNT 3.38 x10e6/uL (4.3-5.7)
[2021-12-31 19:44] LABS: ALBUMIN 3.5 g/dL (3.5-5.0); ALBUMIN/GLOBULIN RATIO 0.7 (0.8-2.0); ANION GAP 22.5 mmol/L (8-16); CALCIUM 7.7 mg/dL (8.4-10.2); CREATININE, SERUM 11.6 mg/dL (0.72-1.25); POTASSIUM 5.5 mmol/L (3.5-5.1)
[2021-12-31 19:50] LABS: CREATINE KINASE MB 1.5 ng/mL (0-5.0)
[2021-12-31] MEDS ORDERED: DEXTROSE 50% SYRINGE 50 ML IV STA ×2 (20:03→22:46)
[2021-12-31] MEDS ORDERED: CALCIUM CHLORIDE 10% 1.36 MEQ/ML 10ML SYR IV STA (20:03)
[2021-12-31] MEDS ORDERED: SODIUM BICARBONATE 8.4% INJ 50 ML SYR IV STA (20:03)
[2021-12-31] MEDS ORDERED: SOD POLYSTYRENE SULFONATE SUSP 15 GM/60 ML BTL PO ONE (20:15)
[2021-12-31] MEDS ORDERED: INSULIN REGULAR, HUMAN 100 UNIT/1 ML IV ONE (20:15)
[2021-12-31] MEDS ORDERED: SODIUM CHLORIDE FLUSH 10 ML SYR INJ PRN (20:30)
[2021-12-31] MEDS ORDERED: PROMETHAZINE 12.5MG/ NACL 0.9% 12.5 MG/50 ML BAG IV PRN (20:30)
[2021-12-31] MEDS ORDERED: DEXTROSE 50% SYRINGE 50 ML IV ONE (22:53)
[2022-01-01] MEDS ORDERED: POTASSIUM CHLORIDE 20 MEQ TAB CR PO STA (01:50)
[2022-01-01] MEDS ORDERED: DIPHENHYDRAMINE HCL 25 MG CAP PO PRN (02:00)
[2022-01-01] MEDS ORDERED: LIDOCAINE 4% PATCH TP PRN (02:00)
[2022-01-01] MEDS ORDERED: SIMETHICONE 80 MG CHEW PO PRN (02:00)
[2022-01-01] MEDS ORDERED: ONDANSETRON HCL INJ 2MG/ML 2ML 2 MG/ML VIAL IV PRN (02:00)
[2022-01-01] MEDS ORDERED: DOCUSATE SODIUM 100 MG CAP PO PRN (02:00)
[2022-01-01] MEDS ORDERED: ACETAMINOPHEN 325 MG TAB PO PRN (02:00)
[2022-01-01] MEDS ORDERED: ALBUTEROL/IPRATROPIUM 3 ML NEB NEB PRN (02:00)
[2022-01-01] MEDS ORDERED: TRAMADOL HCL 50 MG TAB PO PRN (02:00)
[2022-01-01] MEDS ORDERED: DEXTROSE 50% SYRINGE 50 ML IV PRN (02:00)
[2022-01-01 04:04] LABS: CREATINE KINASE MB 1.5 ng/mL (0-5.0)
[2022-01-01 05:50] LABS: BASOPHILS # (AUTO) 0.1 (0.0-0.1); BASOPHILS % 0.7 % (0.0-1.0); EOSINOPHILS # (AUTO) 0.2 (0.0-0.4); EOSINOPHILS % 2.3 % (0.0-6.0); HEMATOCRIT 33.4 % (38.2-49.6); HEMOGLOBIN 10.4 g/dL (14.0-18.0); LYMPHOCYTES # (AUTO) 1.8 (1.0-3.2); LYMPHOCYTES % 21.9 % (18.0-39.1); MEAN CORPUSCULAR HEMOGLOBIN 29.7 pg (28-32); MEAN CORPUSCULAR HGB CONC 31.1 g/dL (31-35); MEAN CORPUSCULAR VOLUME 95.4 fL (81-99); MONOCYTES # (AUTO) 0.8 (0.2-0.8); MONOCYTES % 9.1 % (4.4-11.3); NEUTROPHILS # (AUTO) 5.4 (2.1-6.9); NEUTROPHILS % 65.6 % (38.7-80.0); PLATELET COUNT 159 x10e3/uL (140-360)
[2022-01-01 06:04] LABS: ALBUMIN 3.3 g/dL (3.5-5.0); ALBUMIN/GLOBULIN RATIO 0.6 (0.8-2.0); CALCIUM 8.1 mg/dL (8.4-10.2); CREATININE, SERUM 12.61 mg/dL (0.72-1.25)
[2022-01-01 06:13] LABS: CREATINE KINASE MB 1.5 ng/mL (0-5.0)
[2022-01-01] MEDS ORDERED: CALCIUM CHLORIDE 10% 1.36 MEQ/ML 10ML SYR IV STA (06:32)
[2022-01-01] MEDS ORDERED: SODIUM BICARBONATE 8.4% 50 ML VIAL IV STA (06:32)
[2022-01-01] MEDS ORDERED: DEXTROSE 50% SYRINGE 50 ML IV STA (06:32)
[2022-01-01] MEDS ORDERED: INSULIN REGULAR, HUMAN 100 UNIT/1 ML IV ONE (06:45)
[2022-01-01] MEDS ORDERED: SOD POLYSTYRENE SULFONATE SUSP 15 GM/60 ML BTL PO ONE (06:45)
[2022-01-01] MEDS ORDERED: SODIUM BICARBONATE 8.4% SYRING 50 ML ONE (06:53)
[2022-01-01 12:36] LABS: CALCIUM 8.5 mg/dL (8.4-10.2); CREATININE, SERUM 12.56 mg/dL (0.72-1.25)
[2022-01-01 12:46] LABS: CREATINE KINASE MB 1.7 ng/mL (0-5.0)
[2022-01-01 18:43] LABS: CREATINE KINASE MB 1.5 ng/mL (0-5.0)
[2022-01-01 18:44] VITALS: BP 133/78
[2022-01-01 18:53] VITALS: BP 116/72
[2022-01-01 19:08] VITALS: BP 116/72
[2022-01-01 20:00] VITALS: BP 99/68
[2022-01-02] VITALS (7 sets, daily range): BP systolic 105–139; BP diastolic 63–76
[2022-01-02 06:22] LABS: BASOPHILS # (AUTO) 0.1 (0.0-0.1); BASOPHILS % 0.8 % (0.0-1.0); EOSINOPHILS # (AUTO) 0.3 (0.0-0.4); EOSINOPHILS % 4.3 % (0.0-6.0); HEMATOCRIT 33.9 % (38.2-49.6); HEMOGLOBIN 10.6 g/dL (14.0-18.0); LYMPHOCYTES # (AUTO) 1.3 (1.0-3.2); LYMPHOCYTES % 17.8 % (18.0-39.1); MEAN CORPUSCULAR HEMOGLOBIN 29.5 pg (28-32); MEAN CORPUSCULAR HGB CONC 31.3 g/dL (31-35); MEAN CORPUSCULAR VOLUME 94.4 fL (81-99); MONOCYTES # (AUTO) 0.7 (0.2-0.8); MONOCYTES % 9.6 % (4.4-11.3); PLATELET COUNT 150 x10e3/uL (140-360); RED BLOOD COUNT 3.59 x10e6/uL (4.3-5.7); RED CELL DISTRIBUTION WIDTH 16.3 % (11.7-14.4)
[2022-01-02 06:44] LABS: CREATININE, SERUM 9.1 mg/dL (0.72-1.25)
[2022-01-02 19:34] LABS: INR 1.18
[2022-01-02 19:35] LABS: PARTIAL THROMBOPLASTIN TIME 39.8 seconds (23.8-35.5)
[2022-01-03] VITALS (7 sets, daily range): BP systolic 100–168; BP diastolic 57–84
[2022-01-03] MEDS ORDERED: SODIUM CHLORIDE 0.9% 1000ML 2,000 ML IV PRN (11:15)
[2022-01-03] MEDS ORDERED: ALBUMIN 25% 12.5GM 0.25 GM/ML BTL IV PRN (11:15)
[2022-01-03] MEDS ORDERED: SODIUM CHLORIDE 0.9% 250ML 500 ML IV PRN (11:15)
[2022-01-03] MEDS ORDERED: ALBUMIN 25% 25GM 100ML 0.25 GM/ML BTL IV ONE (14:15)
[2022-01-03] MEDS ORDERED: ALBUMIN 25% 25GM 100ML 100 ML IV PRN (15:00)
[2022-01-04] VITALS: BP 104/55
[2022-01-04 04:00] VITALS: BP 102/56
[2022-01-04 08:00] VITALS: BP 115/54
[2022-01-04 12:00] VITALS: BP 123/70
[2022-01-04] MEDS ORDERED: ONDANSETRON HCL 4 MG ORAL DISINTEGRATING TAB PO PRN (14:30)
[2022-01-05] MEDS ORDERED: PANTOPRAZOLE SOD 40 MG TABEC PO SCH (07:30)
== END 2022-01-04 15:41 | disposition home or self-care (01) | DRG 432 ==
LOC: ER 18:26 → ERHOLD 20:33 → MED/SURG2 01-01 17:35
PROVIDERS: ADMIT Internal Medicine; ATTEND Internal Medicine
PROC: 5A1D70Z Performance of Urinary Filtration, Intermittent, Less than 6 Hours Per Day (ICD-10-PCS; principal; 2022-01-01)
PROC: 0W9G3ZZ Drainage of Peritoneal Cavity, Percutaneous Approach (ICD-10-PCS; 2022-01-03)
DX: K74.69 Other cirrhosis of liver (principal); N18.6 End stage renal disease; I12.0 Hypertensive chronic kidney disease with stage 5 chronic kidney disease or end stage renal disease; N17.9 Acute kidney failure, unspecified; I42.9 Cardiomyopathy, unspecified; R18.8 Other ascites; N25.81 Secondary hyperparathyroidism of renal origin; Z99.2 Dependence on renal dialysis; E87.5 Hyperkalemia; D63.1 Anemia in chronic kidney disease; K29.70 Gastritis, unspecified, without bleeding; Z95.810 Presence of automatic (implantable) cardiac defibrillator; M32.9 Systemic lupus erythematosus, unspecified; Z79.82 Long term (current) use of aspirin; Z79.899 Other long term (current) drug therapy
CPT/HCPCS: 36415; 49083; 74176; 80048; 80053; 82550; 82553; 82948; 83690; 84484; 85025; 85610; 85730; 87340; 93005; 94799; 99284; J1817; J2550; J7030; J7799; P9047

== ENCOUNTER 2022-07-05 12:59 | Emergency (ER) | payer MEDICARE, OTHER ==
[~2022-07-05] VITALS: Ht 190.5 cm; Wt 94.3 kg
[2022-07-05 13:32] LABS: BASOPHILS # (AUTO) 0.1 (0.0-0.1); BASOPHILS % 0.8 % (0.0-1.0); EOSINOPHILS # (AUTO) 0.4 (0.0-0.4); EOSINOPHILS % 5.2 % (0.0-6.0); HEMATOCRIT 36.1 % (38.2-49.6); HEMOGLOBIN 11.5 g/dL (14.0-18.0); LYMPHOCYTES # (AUTO) 1.5 (1.0-3.2); LYMPHOCYTES % 20.3 % (18.0-39.1); MEAN CORPUSCULAR HEMOGLOBIN 29.6 pg (28-32); MEAN CORPUSCULAR HGB CONC 31.9 g/dL (31-35); MEAN CORPUSCULAR VOLUME 92.8 fL (81-99); MONOCYTES # (AUTO) 0.7 (0.2-0.8); MONOCYTES % 9.4 % (4.4-11.3); NEUTROPHILS # (AUTO) 4.7 (2.1-6.9); NEUTROPHILS % 63.6 % (38.7-80.0); PLATELET COUNT 124 x10e3/uL (140-360); RED BLOOD COUNT 3.89 x10e6/uL (4.3-5.7); RED CELL DISTRIBUTION WIDTH 14.4 % (11.7-14.4)
[2022-07-05 13:43] LABS: INR 1.21; PROTHROMBIN TIME 15.5 seconds (11.9-14.5)
[2022-07-05 13:44] LABS: PARTIAL THROMBOPLASTIN TIME 39.3 seconds (23.8-35.5)
[2022-07-05 13:50] LABS: ALANINE AMINOTRANSFERASE 7 IU/L (0-55); ALBUMIN 3.9 g/dL (3.5-5.0); ALBUMIN/GLOBULIN RATIO 0.7 (0.8-2.0); ALKALINE PHOSPHATASE 154 IU/L (40-150); ANION GAP 22.9 mmol/L (8-16); BLOOD UREA NITROGEN 36 mg/dL (7-26); BUN/CREATININE RATIO 3 (6-25); CALCIUM 9.6 mg/dL (8.4-10.2); CARBON DIOXIDE 27 mmol/L (22-29); CHLORIDE 95 mmol/L (98-107); GLUCOSE 79 mg/dL (74-118); POTASSIUM 4.9 mmol/L (3.5-5.1); SODIUM 140 mmol/L (136-145)
[2022-07-05] MEDS ORDERED: ALBUMIN 25% 12.5GM 50ML 200 ML IV ONE (16:01)
== END 2022-07-05 17:59 | disposition home or self-care (01) ==
LOC: ER 13:08
DX: E11.22 Type 2 diabetes mellitus with diabetic chronic kidney disease (principal); I13.0 Hypertensive heart and chronic kidney disease with heart failure and stage 1 through stage 4 chronic kidney disease, or unspecified chronic kidney disease; N18.9 Chronic kidney disease, unspecified; I50.9 Heart failure, unspecified; K74.60 Unspecified cirrhosis of liver; R18.8 Other ascites; M32.9 Systemic lupus erythematosus, unspecified; Z20.822 Contact with and (suspected) exposure to COVID-19; Z99.2 Dependence on renal dialysis; Z95.810 Presence of automatic (implantable) cardiac defibrillator
CPT/HCPCS: 0223U; 36415; 49083; 74470; 80053; 84484; 85025; 85610; 85730; 99284

== ENCOUNTER 2022-08-03 22:10 | Emergency (ER) | payer MEDICARE, OTHER ==
[~2022-08-03] VITALS: Ht 190.5 cm; Wt 94.3 kg
[2022-08-03 22:40] LABS: BASOPHILS # (AUTO) 0.1 (0.0-0.1); BASOPHILS % 0.7 % (0.0-1.0); EOSINOPHILS # (AUTO) 0.6 (0.0-0.4); EOSINOPHILS % 6.1 % (0.0-6.0); HEMATOCRIT 36.4 % (38.2-49.6); LYMPHOCYTES # (AUTO) 2.2 (1.0-3.2); LYMPHOCYTES % 22.5 % (18.0-39.1); MEAN CORPUSCULAR HEMOGLOBIN 29.2 pg (28-32); MEAN CORPUSCULAR HGB CONC 30.2 g/dL (31-35); MEAN CORPUSCULAR VOLUME 96.6 fL (81-99); MONOCYTES # (AUTO) 0.8 (0.2-0.8); MONOCYTES % 8.8 % (4.4-11.3); NEUTROPHILS # (AUTO) 5.9 (2.1-6.9); NEUTROPHILS % 61.6 % (38.7-80.0); PLATELET COUNT 151 x10e3/uL (140-360); RED BLOOD COUNT 3.77 x10e6/uL (4.3-5.7)
[2022-08-03 22:52] LABS: ALBUMIN 3.5 g/dL (3.5-5.0); ALBUMIN/GLOBULIN RATIO 0.7 (0.8-2.0); ANION GAP 20.3 mmol/L (8-16); CALCIUM 9.2 mg/dL (8.4-10.2); CREATININE, SERUM 8.11 mg/dL (0.72-1.25); POTASSIUM 4.3 mmol/L (3.5-5.1)
[2022-08-03 22:59] LABS: CREATINE KINASE MB 1.4 ng/mL (0-5.0)
[2022-08-03 23:09] LABS: AMPHETAMINES SCREEN,URINE NEGATIVE (NEGATIVE); BENZODIAZEPINES SCREEN,URINE NEGATIVE (NEGATIVE); PHENCYCLIDINE SCREEN,URINE NEGATIVE (NEGATIVE)
[2022-08-03] MEDS ORDERED: FUROSEMIDE INJ 10 MG/ML 4 ML VIAL IV STA (23:36)
[2022-08-03] MEDS ORDERED: SODIUM CHLORIDE FLUSH 10 ML SYR INJ PRN (23:45)
[2022-08-04 00:06] VITALS: BP 153/90
== END 2022-08-04 00:08 | disposition home or self-care (01) ==
LOC: ER 22:17
DX: R50.9 Fever, unspecified (principal); I50.9 Heart failure, unspecified; R05.9 Cough, unspecified; I12.0 Hypertensive chronic kidney disease with stage 5 chronic kidney disease or end stage renal disease; N18.6 End stage renal disease; Z99.2 Dependence on renal dialysis; E78.5 Hyperlipidemia, unspecified; M32.9 Systemic lupus erythematosus, unspecified; Z20.822 Contact with and (suspected) exposure to COVID-19; Z87.19 Personal history of other diseases of the digestive system; Z95.810 Presence of automatic (implantable) cardiac defibrillator
CPT/HCPCS: 36415; 71045; 80053; 80307; 82550; 82553; 83690; 83880; 84484; 85025; 85379; 93005; 99284; J1940; U0002

== ENCOUNTER 2022-08-11 10:06 | Emergency (ER) | payer MEDICARE, OTHER ==
[2022-08-11 11:06] LABS: HEMATOCRIT 34.9 % (38.2-49.6); HEMOGLOBIN 11.1 g/dL (14.0-18.0); MEAN CORPUSCULAR HEMOGLOBIN 29.4 pg (28-32); MEAN CORPUSCULAR HGB CONC 31.8 g/dL (31-35); MEAN CORPUSCULAR VOLUME 92.6 fL (81-99); PLATELET COUNT 114 x10e3/uL (140-360); RED BLOOD COUNT 3.77 x10e6/uL (4.3-5.7); RED CELL DISTRIBUTION WIDTH 14.5 % (11.7-14.4)
[2022-08-11 11:08] LABS: INR 1.26
[2022-08-11 11:09] LABS: PARTIAL THROMBOPLASTIN TIME 42.2 seconds (23.8-35.5)
[2022-08-11 11:20] LABS: ALBUMIN 3.5 g/dL (3.5-5.0); ALBUMIN/GLOBULIN RATIO 0.7 (0.8-2.0); ANION GAP 17.6 mmol/L (8-16); CALCIUM 9.7 mg/dL (8.4-10.2); CREATININE, SERUM 9.73 mg/dL (0.72-1.25); POTASSIUM 4.6 mmol/L (3.5-5.1)
[2022-08-11 12:34] VITALS: BP 102/63
[2022-08-11 13:21] LABS: EOSINOPHILS % (MANUAL) 9 % (0-7); LYMPHOCYTES % (MANUAL) 15 % (19-48); MONOCYTES % (MANUAL) 4 % (3.4-9.0); NEUTROPHILS % (MANUAL) 70 % (40-74)
[2022-08-11 13:22] LABS: PLATELET ESTIMATE SLIGHTLY DECREASED; PLATELET MORPHOLOGY COMMENT NORMAL; RBC MORPHOLOGY COMMENT NORMAL
== END 2022-08-11 12:20 | disposition home or self-care (01) ==
LOC: ER 10:11
DX: R18.8 Other ascites (principal); K74.60 Unspecified cirrhosis of liver; I12.0 Hypertensive chronic kidney disease with stage 5 chronic kidney disease or end stage renal disease; N18.6 End stage renal disease; Z99.2 Dependence on renal dialysis; I50.9 Heart failure, unspecified; E78.5 Hyperlipidemia, unspecified; M32.9 Systemic lupus erythematosus, unspecified; Z87.19 Personal history of other diseases of the digestive system; Z95.810 Presence of automatic (implantable) cardiac defibrillator
CPT/HCPCS: 36415; 49083; 80053; 85007; 85027; 85610; 85730; 99284; C1729

== ENCOUNTER → 2022-09-16 | Outpatient (CLI) | payer MEDICARE, OTHER ==
[~2022-09-16] MED LIST changes: +ALBUMIN 25% 12.5GM 50ML 200 ML IV ONE
[2022-09-16 11:24] LABS: BASOPHILS # (AUTO) 0.1 (0.0-0.1); EOSINOPHILS # (AUTO) 0.4 (0.0-0.4); EOSINOPHILS % 5.2 % (0.0-6.0); HEMATOCRIT 34.1 % (38.2-49.6); HEMOGLOBIN 10.5 g/dL (14.0-18.0); LYMPHOCYTES # (AUTO) 1.3 (1.0-3.2); LYMPHOCYTES % 18.2 % (18.0-39.1); MEAN CORPUSCULAR HEMOGLOBIN 28.2 pg (28-32); MEAN CORPUSCULAR HGB CONC 30.8 g/dL (31-35); MEAN CORPUSCULAR VOLUME 91.7 fL (81-99); MONOCYTES # (AUTO) 0.8 (0.2-0.8); MONOCYTES % 10.7 % (4.4-11.3); NEUTROPHILS # (AUTO) 4.5 (2.1-6.9); NEUTROPHILS % 64.6 % (38.7-80.0); PLATELET COUNT 134 x10e3/uL (140-360); RED BLOOD COUNT 3.72 x10e6/uL (4.3-5.7); RED CELL DISTRIBUTION WIDTH 14.5 % (11.7-14.4)
[2022-09-16 11:49] LABS: INR 1.26; PROTHROMBIN TIME 16.3 seconds (11.9-14.5)
[2022-09-16 11:50] LABS: PARTIAL THROMBOPLASTIN TIME 46.8 seconds (23.8-35.5)
== END ==
LOC: US 10:13
PROVIDERS: ATTEND Internal Medicine
DX: R18.8 Other ascites (principal); N18.9 Chronic kidney disease, unspecified; J45.909 Unspecified asthma, uncomplicated
CPT/HCPCS: 36415; 49083; 85025; 85610; 85730; C1729

== ENCOUNTER → 2022-10-14 | Outpatient (CLI) | payer MEDICARE, OTHER ==
[~2022-10-14] MED LIST changes: +ALBUMIN 25% 12.5GM 50ML 150 ML IV ONE; -ALBUMIN 25% 12.5GM 50ML 200 ML IV ONE
== END ==
LOC: US 07:13
PROVIDERS: ATTEND Internal Medicine
DX: R18.8 Other ascites (principal); M32.9 Systemic lupus erythematosus, unspecified; I50.9 Heart failure, unspecified
CPT/HCPCS: 49083; C1729

== ENCOUNTER → 2022-11-02 | Outpatient (CLI) | payer MEDICARE, OTHER ==
[~2022-11-02] MED LIST changes: -ALBUMIN 25% 12.5GM 50ML 150 ML IV ONE; +ALBUMIN 25% 12.5GM 50ML 200 ML IV ONE
[2022-11-02 13:49] LABS: HEMOGLOBIN 11.2 g/dL (14.0-18.0)
[2022-11-02 13:59] LABS: INR 1.25; PROTHROMBIN TIME 16.2 seconds (11.9-14.5)
[2022-11-02 14:00] LABS: PARTIAL THROMBOPLASTIN TIME 43.5 seconds (23.8-35.5)
== END ==
LOC: US 13:01
PROVIDERS: ATTEND Internal Medicine
DX: R18.8 Other ascites (principal); N18.6 End stage renal disease; Z99.2 Dependence on renal dialysis; I50.9 Heart failure, unspecified; M32.9 Systemic lupus erythematosus, unspecified
CPT/HCPCS: 36415; 49083; 85014; 85049; 85610; 85730; C1729

== ENCOUNTER 2024-03-26 09:54 | Inpatient (IN) | payer MEDICARE ==
[~2024-03-26] VITALS: Ht 190.5 cm; Wt 97.5 kg
[2024-03-26 09:54] VITALS: TEMP 98
[~2024-03-26 09:54] MED LIST changes: -ALBUMIN 25% 12.5GM 50ML 200 ML IV ONE; +ATORVASTATIN CA10 MG PO; +CARVEDILOL3.125 MG PO; +CLOPIDOGREL75 MG PO; +FOLIC ACID0.4 MG PO; +HYDROXYCHLOROQ200 MG PO; +LEVOTHYROXINE75 MCG PO; +PREDNISONE2.5 MG PO
[2024-03-26 10:19] LABS: BASOPHILS # (AUTO) 0.1 (0.0-0.1); BASOPHILS % 0.6 % (0.0-1.0); EOSINOPHILS # (AUTO) 0.2 (0.0-0.4); EOSINOPHILS % 1.8 % (0.0-6.0); HEMOGLOBIN 12.2 g/dL (14.0-18.0); LYMPHOCYTES # (AUTO) 0.7 (1.0-3.2); MEAN CORPUSCULAR HEMOGLOBIN 30.9 pg (28-32); MEAN CORPUSCULAR HGB CONC 31.3 g/dL (31-35); MEAN CORPUSCULAR VOLUME 98.7 fL (81-99); MONOCYTES # (AUTO) 0.7 (0.2-0.8); NEUTROPHILS # (AUTO) 6.5 (2.1-6.9); NEUTROPHILS % 80.4 % (38.7-80.0); PLATELET COUNT 86 x10e3/uL (140-360); RED BLOOD COUNT 3.95 x10e6/uL (4.3-5.7); RED CELL DISTRIBUTION WIDTH 18.3 % (11.7-14.4); WHITE BLOOD COUNT 8.11 x10e3/uL (4.8-10.8)
[2024-03-26] MEDS: ONDANSETRON HCL INJ 2MG/ML 2ML 2 MG/ML VIAL IV STA (10:39)
[2024-03-26 10:43] LABS: ALBUMIN 4.3 g/dL (3.5-5.0); ALBUMIN/GLOBULIN RATIO 0.9 (0.8-2.0); ANION GAP 24.7 mmol/L (8-16); BILIRUBIN,TOTAL 1.5 mg/dL (0.2-1.2); CALCIUM 10.2 mg/dL (8.4-10.2); CREATININE, SERUM 12.54 mg/dL (0.72-1.25); MAGNESIUM 2.1 MG/DL (1.3-2.1); POTASSIUM 3.7 mmol/L (3.5-5.1)
[2024-03-26 10:52] LABS: TROPONIN I 0.196 ng/mL (0-0.300)
[2024-03-26] MEDS ORDERED: IOPAMIDOL 370 MG/ML 100 ML INFUS..BTL INJ ONE (10:57)
[2024-03-26] MEDS ORDERED: ONDANSETRON HCL INJ 2MG/ML 2ML 2 MG/ML VIAL IV PRN (11:15)
[2024-03-26 11:24] LABS: INR 1.24; PROTHROMBIN TIME 16.2 seconds (11.9-14.5)
[2024-03-26 11:25] LABS: PARTIAL THROMBOPLASTIN TIME 42.2 seconds (23.8-35.5)
[2024-03-26] MEDS: LIDOCAINE VISC 2% SOLN 15 ML UDC PO ONE (11:55)
[2024-03-26] MEDS: MAGNESIUM/ALUMINUM/SIMETHICONE 30 ML UDC PO ONE (11:55)
[2024-03-26] MEDS: BELLADONNA ALK/PHENOBARBITAL 5 ML UDC PO ONE (11:56)
[2024-03-26 12:54] LABS: INFLUENZAE A&B ANTIGEN (RAPID) NEGATIVE (NEGATIVE); RESPIRATORY SYNC. VIRUS NEGATIVE (NEGATIVE)
[2024-03-26] MEDS ORDERED: LIDOCAINE 4% PATCH TP PRN (15:15)
[2024-03-26] MEDS ORDERED: MELATONIN 5 MG TABLET PO PRN (15:15)
[2024-03-26] MEDS ORDERED: HYDRALAZINE HCL 20 MG/ML VIAL IV PRN (15:15)
[2024-03-26] MEDS ORDERED: DOCUSATE SODIUM 100 MG CAP PO PRN (15:15)
[2024-03-26] MEDS ORDERED: DIPHENHYDRAMINE HCL 25 MG CAP PO PRN (15:15)
[2024-03-26] MEDS ORDERED: ACETAMINOPHEN 325 MG TAB PO PRN (15:15)
[2024-03-26] MEDS ORDERED: DEXTROSE 50% SYRINGE 50 ML IV PRN (15:15)
[2024-03-26] MEDS ORDERED: ALBUTEROL/IPRATROPIUM 3 ML NEB NEB PRN (15:15)
[2024-03-26] MEDS ORDERED: BENZONATATE 100 MG CAP PO PRN (15:15)
[2024-03-26] MEDS ORDERED: ALBUMIN 25% 12.5GM 50ML 150 ML IV ONE (15:44)
[2024-03-26 16:41] VITALS: PULSE 75; RESP 10; O2SAT 100
[2024-03-26] MEDS ORDERED: SODIUM CHLORIDE 0.9% 1000ML 2,000 ML IV PRN (17:00)
[2024-03-26 19:11] LABS: TROPONIN I 0.191 ng/mL (0-0.300)
[2024-03-26 20:00] VITALS: PULSE 79; RESP 16; O2SAT 100
[2024-03-26] MEDS: ALBUMIN 25% 12.5GM 0.25 GM/ML BTL IV ONE (20:45)
[2024-03-27] VITALS (10 sets, daily range): BP systolic 88–91; BP diastolic 58–76; PULSE 57–99; RESP 16–20; TEMP 97.7–98.6; O2SAT 96–100
[2024-03-27] MEDS ORDERED: METOCLOPRAMIDE HCL 10 MG/2ML VIAL IV SCH
[2024-03-27] MEDS: ATORVASTATIN 10 MG TAB PO SCH (01:51)
[2024-03-27] MEDS ORDERED: METOCLOPRAMIDE HCL 10 MG/2ML VIAL IV PRN (06:30)
[2024-03-27] MEDS: LEVOTHYROXINE SODIUM 75 MCG TAB PO SCH (06:44)
[2024-03-27 07:11] LABS: BASOPHILS # (AUTO) 0.1 (0.0-0.1); BASOPHILS % 0.7 % (0.0-1.0); EOSINOPHILS # (AUTO) 0.3 (0.0-0.4); EOSINOPHILS % 4.1 % (0.0-6.0); HEMATOCRIT 33.3 % (38.2-49.6); HEMOGLOBIN 10.3 g/dL (14.0-18.0); LYMPHOCYTES # (AUTO) 1.1 (1.0-3.2); LYMPHOCYTES % 15.7 % (18.0-39.1); MEAN CORPUSCULAR HEMOGLOBIN 30.8 pg (28-32); MEAN CORPUSCULAR HGB CONC 30.9 g/dL (31-35); MEAN CORPUSCULAR VOLUME 99.7 fL (81-99); MONOCYTES # (AUTO) 0.9 (0.2-0.8); MONOCYTES % 13.8 % (4.4-11.3); NEUTROPHILS # (AUTO) 4.4 (2.1-6.9); NEUTROPHILS % 65.4 % (38.7-80.0); PLATELET COUNT 73 x10e3/uL (140-360); RED BLOOD COUNT 3.34 x10e6/uL (4.3-5.7); RED CELL DISTRIBUTION WIDTH 18.3 % (11.7-14.4); WHITE BLOOD COUNT 6.76 x10e3/uL (4.8-10.8)
[2024-03-27 07:42] LABS: TROPONIN I 0.192 ng/mL (0-0.300)
[2024-03-27 08:02] LABS: ALBUMIN 3.8 g/dL (3.5-5.0); ALBUMIN/GLOBULIN RATIO 1.1 (0.8-2.0); ANION GAP 19.8 mmol/L (8-16); BILIRUBIN,TOTAL 1.5 mg/dL (0.2-1.2); CALCIUM 9.2 mg/dL (8.4-10.2); CREATININE, SERUM 8.99 mg/dL (0.72-1.25); POTASSIUM 3.8 mmol/L (3.5-5.1); TOTAL PROTEIN 7.4 g/dL (6.5-8.1)
[2024-03-27] MEDS: CARVEDILOL 3.125 MG TAB PO SCH (09:00)
[2024-03-27] MEDS: ASPIRIN 81 MG CHEW TAB PO SCH (11:55)
[2024-03-27] MEDS: METOCLOPRAMIDE HCL 10 MG/2ML VIAL IV SCH (11:55)
[2024-03-27] MEDS: SIMETHICONE 80 MG CHEW PO PRN (11:56)
[2024-03-28] VITALS (7 sets, daily range): BP systolic 80–87; BP diastolic 60–68; PULSE 76–83; RESP 16–20; TEMP 97.7–99.5; O2SAT 97–100
[2024-03-28 05:43] LABS: HEPATITIS B SURFACE AG (P) Negative (Negative)
[2024-03-28 06:47] LABS: BASOPHILS # (AUTO) 0.1 (0.0-0.1); EOSINOPHILS # (AUTO) 0.2 (0.0-0.4); EOSINOPHILS % 3.9 % (0.0-6.0); HEMATOCRIT 33.5 % (38.2-49.6); HEMOGLOBIN 10.4 g/dL (14.0-18.0); LYMPHOCYTES # (AUTO) 1.2 (1.0-3.2); LYMPHOCYTES % 18.9 % (18.0-39.1); MEAN CORPUSCULAR VOLUME 99.7 fL (81-99); MONOCYTES # (AUTO) 0.8 (0.2-0.8); MONOCYTES % 13.5 % (4.4-11.3); NEUTROPHILS # (AUTO) 3.8 (2.1-6.9); NEUTROPHILS % 62.2 % (38.7-80.0); PLATELET COUNT 66 x10e3/uL (140-360); RED BLOOD COUNT 3.36 x10e6/uL (4.3-5.7); RED CELL DISTRIBUTION WIDTH 18.1 % (11.7-14.4); WHITE BLOOD COUNT 6.08 x10e3/uL (4.8-10.8)
[2024-03-28 07:02] LABS: ANION GAP 20.7 mmol/L (8-16); CALCIUM 9.4 mg/dL (8.4-10.2); CREATININE, SERUM 10.56 mg/dL (0.72-1.25); POTASSIUM 3.7 mmol/L (3.5-5.1)
[2024-03-28] MEDS: ALBUMIN 25% 12.5GM 0.25 GM/ML BTL IV PRN (09:43)
[2024-03-28] MEDS: MIDODRINE HCL 5 MG TABLET PO SCH (13:51)
[2024-03-28] MEDS ORDERED: MIDODRINE HCL5 MG PO (14:46)
== END 2024-03-28 15:45 | disposition home or self-care (01) | DRG 391 ==
LOC: ER 10:10 → ERHOLD 11:17 → MED/SURG 03-27 08:30
PROVIDERS: ADMIT Internal Medicine; ATTEND Internal Medicine
PROC: 5A1D70Z Performance of Urinary Filtration, Intermittent, Less than 6 Hours Per Day (ICD-10-PCS; principal; 2024-03-26)
DX: R11.2 Nausea with vomiting, unspecified (principal); N18.6 End stage renal disease; I42.8 Other cardiomyopathies; I12.0 Hypertensive chronic kidney disease with stage 5 chronic kidney disease or end stage renal disease; K76.6 Portal hypertension; R18.8 Other ascites; I11.0 Hypertensive heart disease with heart failure; I50.22 Chronic systolic (congestive) heart failure; M32.14 Glomerular disease in systemic lupus erythematosus; E83.51 Hypocalcemia; E78.5 Hyperlipidemia, unspecified; Z99.2 Dependence on renal dialysis; K74.60 Unspecified cirrhosis of liver; D69.59 Other secondary thrombocytopenia; Z11.52 Encounter for screening for COVID-19; K21.9 Gastro-esophageal reflux disease without esophagitis; I35.0 Nonrheumatic aortic (valve) stenosis; I95.89 Other hypotension; R16.1 Splenomegaly, not elsewhere classified; Z79.02 Long term (current) use of antithrombotics/antiplatelets; Z79.82 Long term (current) use of aspirin; Z79.890 Hormone replacement therapy; Z79.52 Long term (current) use of systemic steroids; Z95.1 Presence of aortocoronary bypass graft; Z95.810 Presence of automatic (implantable) cardiac defibrillator; Z95.2 Presence of prosthetic heart valve; Z90.49 Acquired absence of other specified parts of digestive tract; Z82.49 Family history of ischemic heart disease and other diseases of the circulatory system
CPT/HCPCS: 36415; 71045; 74177; 80048; 80053; 82550; 82948; 83690; 83735; 84484; 85025; 85610; 85730; 86706; 87340; 87400; 87420; 93005; 94799; 99284; J2405; J2470; J2765; J7030; Q9967; U0002

== ENCOUNTER 2024-04-01 19:48 | Emergency (ER) | payer MEDICARE, OTHER ==
[~2024-04-01 19:48] MED LIST changes: +MIDODRINE HCL5 MG PO
== END 2024-04-01 21:00 | disposition left against medical advice (07) ==
LOC: ER 19:54
DX: R09.89 Other specified symptoms and signs involving the circulatory and respiratory systems (principal)